=== PATIENT | male | born 1935 | race Caucasian/White ===

== ENCOUNTER 2018-09-29 08:45 | Inpatient (IN) | payer MEDICARE, OTHER, SELFPAY ==
[2018-09-29] VITALS (12 sets, daily range): BP systolic 127–143; BP diastolic 49–71; PULSE 66–85; RESP 16–22; TEMP 35.8–37.1; O2SAT 75–96; BMI 26.5; BMI 26.6; BMI 26.7
--- NOTE | 2018-09-29 08:59 | RAD_ITS ---
STUDY: X-RAY CHEST REASON FOR EXAM: Male, 82 years old. Shortness of breath and cough TECHNIQUE: Single AP portable view of the chest. COMPARISON: 09/17/2016 FINDINGS: EKG leads overlie the chest The lungs are clear and expanded. There is no demonstrated pleural abnormality. Normal size heart. Normal mediastinum and dionne. Normal visualized pulmonary arteries. There is atherosclerotic calcification of the aortic arch with tortuosity. There are diffuse degenerative changes of the visualized thoracic spine. Normal visualized ribs, clavicles, and shoulders. There is no demonstrated abnormality of the visualized soft tissue structures of the upper abdomen. RAD/Chest 1 View (Portable) IMPRESSION: No acute pulmonary process Electronically Signed: Celso Boyce MD at 9:57 EDT , Service support ,
--- NOTE | 2018-09-29 09:00 | EKG12_ITS ---
Test Reason : SOB Blood Pressure : / mmHG Vent. Rate : 069 BPM Atrial Rate : 069 BPM P-R Int : 136 ms QRS Dur : 102 ms QT Int : 396 ms P-R-T Axes : 047 -62 044 degrees QTc Int : 424 ms Normal sinus rhythm Left anterior fascicular block Abnormal ECG Confirmed by NICHO CHOWDHURY, CHANDRA ([id number]), newspaper copy editor MARIA DEL ROSARIO PARADA ([id number]) on 10/07/2018 1:24:04 PM Referred By: AUBRIE Confirmed By:LUIS ALFREDO TORRE MD
--- NOTE | 2018-09-29 09:05 | ED.VIS.GEN ---
History of Present Illness Chief Complaint: Shortness of Breath Informant: Patient Onset: Days Context: Gradual Onset Timing: Waxes and wanes Current Severity: Moderate Maximum Severity: Moderate Narrative: Patient presents with increased shortness of breath for the past couple of days. He does have a history of COPD. He does wear 1 L nasal cannula home oxygen as needed. Patient states he is been using it for the last day and a half. He does check his pulse ox at home and states he normally runs between 85 and 88%. He has not had significant cough. He reports intermittent mild burning in his chest. No fever or chills. Past Medical History - Allergies and Home Meds Allergies/Adverse Reactions: Allergies WORM MEDICATION Allergy (Uncoded 09/29/18 08:46) Hives Primary Care Physician: Kevin Mcdowell III, MD [Primary Care Provider] - Doctors: Dr. Carlson, Dr. Morris Prior records reviewed: Yes Past Medical History: - - Reviewed Smoking Status: Former smoker - Family History Maternal Family History: Reports: No pertinent history Review of Systems General: Denies: Chills, Fever Eyes: Denies: Visual changes - bilaterally ENT: Denies: Bilateral ear pain Cardiovascular: Reports: Chest pain. Denies: Palpitations, Heart racing Respiratory: Reports: Dyspnea. Denies: Cough Gastrointestinal: Denies: Abdominal pain, Nausea, Vomiting Genitourinary: Denies: Dysuria Musculoskeletal: Reports: Swelling - Mild left ankle swelling. Denies: Myalgias Skin: Denies: Rash Neurological: Denies: Headache Endocrine: Denies: Polyuria, Polydipsia Hematologic: Denies: Easy bruising Allergy: Denies: Uticaria Physical Exam Vital Signs/Narrative: Vital Signs Temp Pulse Resp BP Pulse Ox 09/29/18 08:54 96.5 F L 74 20 H 143/68 H 75 Inital Vital Signs reviewed: Yes General: Well nourished, Well developed Head: Normocephalic Eyes: Perrl, EOMI ENT: Moist mucous membranes Neck: Supple Cardiovascular: Regular rate, Regular rhythm Respiratory: No distress, Diminished Abdomen: Soft, Nontender Extremities: Nontender, No edema Skin: Normal color, No rash Neurological: Alert, Oriented x3 Psychological: Normal affect Diagnostic/Tx/Re-eval Impressions Chest X-Ray 09/29/18 08:59 IMPRESSION: No acute pulmonary process Electronically Signed: Celso Boyce MD at 9:57 EDT , Service support , 09/29/18 08:59 Chest 1 View (Portable) [RAD] Stat Laboratory Results 09/29/18 09/29/18 09/29/18 09:10 09:10 09:10 WBC 7.0 RBC 5.22 Hgb 16.3 Hct 51.0 MCV 97.7 H MCH 31.2 MCHC 32.0 RDW Std Deviation 51.0 H RDW Coeff of Delia 14.1 Plt Count 179 MPV 10.4 Immature Gran % (Auto) 0.300 Neut % (Auto) 64.2 Lymph % (Auto) 24.6 [place] % (Auto) 7.8 Eos % (Auto) 2.7 Baso % (Auto) 0.4 Absolute Neuts (auto) 4.5 Absolute Lymphs (auto) 1.71 Nucleated RBC % 0 Sodium 135 L Potassium 4.2 Chloride 98 Carbon Dioxide 33.0 H Anion Gap 4 L BUN 26 H Creatinine 1.34 H Estim Creat Clear Calc 44.64 Est GFR (MDRD) Af Amer 66 Est GFR (MDRD) Non-Af 54 L BUN/Creatinine Ratio 19.4 Glucose 191 H Calcium 9.5 Troponin I < 0.015 B-Natriuretic Peptide 170.2 H - EKG Initial EKG Interpretation: Sinus Rhythm - Sinus at [address] change. - Medical Decision Making Patient presented with oxygen saturation of 69% in triage. He was 75% on his normal 1 L nasal cannula in the exam room. Oxygen was turned up and patient's sats increased into the mid upper 90s. He has now settled at requiring around 3 L nasal cannula to maintain his sats around 90. With any exertion patient does desaturate. He is not having chest pain currently. He was given a DuoNeb treatment states he is coughing slightly more now. Lungs are clear with slightly improved air movement throughout. He will be given a dose of Solu-Medrol. He will be admitted for further respiratory treatment and evaluation. ED Disposition - Plan for ED Patient: Disposition: Acute Care Hospital [facility] Diagnosis: COPD exacerbation Referrals: Kevin Mcdowell III, MD [Primary Care Provider] -
[2018-09-29] MEDS: Ipratropium/Albuterol Sulfate 3 ML AMPUL.NEB INHALATION ×4 (09:07→23:25)
[2018-09-29 09:16] LABS: Absolute Lymphocyte Count 1.71 X10^3/uL (0.83-4.51); Absolute Neutrophil Count 4.5 X10^3/uL (2.0-7.7); Basophil# 0.03 X10^3/uL; Basophil% 0.4 % (0-1); Eosinophil# 0.19 X10^3/uL; Eosinophils% 2.7 % (0-5); Hemoglobin 16.3 g/dL (13.0-16.5); Lymphocyte # 1.71 X10^3/ul (4.0); Lymphocyte % 24.6 % (19-41); Mean Corpuscular Hgb 31.2 pg (27.0-32.0); Mean Corpuscular Volume 97.7 fL (80-94); Mean Platelet Vol. 10.4 fl (6.2-12.0); Monocyte# 0.54 X10^3/uL; Monocyte% 7.8 % (0-10); NRBC Flagged by Analyzer 0 % (0-5); Neutrophil # 4.47 X10^3/uL (2.7-7.7); Neutrophil % 64.2 % (47-70); Platelet Count 179 K/mm3 (150-450); RBC Distribution Width CV 14.1 % (11.6-14.6); Red Blood Count 5.22 M/mm3 (4.6-6.2)
[2018-09-29 09:34] LABS: Anion Gap 4 (5-15); BUN 26 mg/dL (7-18); BUN/Creat Ratio 19.4 RATIO (10-20); Calcium,Total 9.5 mg/dL (8.5-10.1); Chloride 98 mmol/L (98-107); Creatinine, Serum 1.34 mg/dL (0.70-1.30); EST Glomerular Filtration Rate 54 mL/min (>60); Est Glom Filt Rate - Afr Amer 66 mL/min (>60); Estimated Creatinine Clearance 44.64 ml/min; Glucose 191 mg/dL (74-106); Potassium 4.2 mmol/L (3.5-5.1); Sodium Level 135 mmol/L (136-145)
[2018-09-29 09:45] LABS: BNP,B-Type NATRIURETIC PEPTIDE 170.2 pg/mL (0-100)
[2018-09-29] MEDS: MethylPREDNISolone 125 MG/2 ML Vial IV (10:18)
--- NOTE | 2018-09-29 10:42 | PCM.HP.STD ---
Problem List (1) Carotid stenosis, bilateral Status: Chronic (2) Peripheral arterial disease Status: Chronic (3) Coronary artery disease Status: Chronic (4) History of cardiac stents Status: Chronic (5) COPD exacerbation Status: Acute (6) Dyslipidemia Status: Chronic (7) DM type 2 (diabetes mellitus, type 2) Status: Acute (8) Hypertension Status: Acute (9) COPD (chronic obstructive pulmonary disease) Status: Chronic History of Present Illness Date of Admission: 09/29/18 Chief Complaint: Shortness of breath The patient is a 82 year old M with history of COPD with 40 pack years of smoking, quit 20 years ago on 1 L of oxygen at home came to ER with progressive worsening of shortness of breath for 3 to 4 days. Patient pulse ox at home was between 85 to 88%. He has intermittent cough from COPD but nothing new. Denies any sputum. Denies chest pressure, chest pain although he reported mild burning pain in chest to Dr. Espinoza. No fever or chills. 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 Lazaro Mcdowell in the past. Past Medical History Past Medical History (Chronic Problems): Chronic Problems Carotid stenosis, bilateral (Chronic) Peripheral arterial disease (Chronic) Coronary artery disease (Chronic) History of cardiac stents (Chronic) Dyslipidemia (Chronic) COPD (chronic obstructive pulmonary disease) (Chronic) Allergies WORM MEDICATION Allergy (Uncoded 09/29/18 08:46) Hives Home Medications: Ambulatory Orders Medication Instructions Recorded Albuterol Aerosols [Ventolin 2.5 mg INHALATION Q4H PRN PRN 01/18/17 Aerosols] Aspirin [Aspirin, Baby] 81 mg PO DAILY@0800 01/18/17 Atorvastatin Calcium [Lipitor] 20 mg PO QHS 01/18/17 Lisinopril/Hydrochlorothiazide 1 tab PO DAILY 01/18/17 [Zestoretic Tablet] Metoprolol Succinate [Toprol Xl] 50 mg PO DAILY 01/18/17 Nitroglycerin [Nitrostat] 0.4 mg SL PRN PRN 01/18/17 Pioglitazone HCl 15 mg PO DAILY 01/18/17 Tiotropium [place] [Spiriva] 18 mcg INHALATION DAILY 01/18/17 metFORMIN HCl [Glucophage] 500 mg PO DAILY 01/18/17 Smoking Status: Former smoker - *Family History Maternal History Items: No pertinent history Review of Systems Constitutional: Denies: Chills, Fever, Weight Change HEENT: Denies: Head Aches, Sinus Congestion, Sinus Drainage Cardiovascular: Denies: Chest Pain, Palpitations Respiratory: Reports: Shortness of Breath, Shortness of breath upon exertion. Denies: Cough, Shortness of breath at rest, Sputum production Gastrointestinal: Denies: Abdominal Pain, Diarrhea, Hematemesis, Hematochezia, Nausea, Melena, Vomiting Genitourinary: Denies: Dysuria, Frequency, Urgency Musculoskeletal: Denies: Joint Pain, Joint Tenderness Skin: Denies: Rash, Wounds Neurological: Denies: Numbness, Tingling, Focal weakness Psychiatric: Denies: Anxiety, Depression, Homicidal Ideations, Suicidal Ideations Hematologic/ Lymphatic: Denies: Easy Bruising, Easy Bleeding VTE Information - Inpt Only VTE Present on Admission: No VTE Mechan Device Prophylaxis: None VTE Pharm Prophylaxis ordered?: Yes Patient Problems: Active and Suspected Problems COPD exacerbation (Acute) - Physical Exam General: Alert, Oriented x3, Cooperative HEENT: Atraumatic, PERRLA, EOMI, Normocephalic Oral: Dry Mucosa Neck: Supple, No JVD, Negative Carotid Bruits, - - Bilateral CEA scar on both side of neck. Lungs: No wheeze, No rales, Diminished - Air entry severely diminished diffusing all lung valdez., Rhonchi Cardiovascular: Regular rate, Regular Rhythm, Normal S1, Normal S2, No murmurs Abdomen: Bowel Sounds Present, Soft, Non Tender, Non-Distended, - - Midline lower abdominal scar of aortobifemoral bypass surgery Extremities: No edema, Capillary Refill Less than 3 Seconds Skin: No rashes, No breakdown Musculoskeletal: No Tenderness to Palpation of Joints or Extremities, Arthritic Changes Neurological: Cranial nerves II-XII grossly intact, Deep Tendon Reflexes 2+/4 and Symmetrical, Neuro grossly intact, Motor Exam 5/5 strength throughout Psych/Mental Status: Normal Affect, Appropriate Vital Signs Temp Pulse Resp BP Pulse Ox 96.5 F L 78 22 H 143/71 H 95 09/29/18 08:54 09/29/18 10:05 09/29/18 10:05 09/29/18 10:05 09/29/18 10:05 Oxygen Flow Rate (L/min) 3 Oxygen Delivery Method Nasal Cannula Weight: 184 lb 15.485 oz Body Mass Index (BMI) 26.5 Laboratory Tests Past 24 Hrs 09/29/18 09/29/18 09/29/18 09:10 09:10 09:10 WBC 7.0 RBC 5.22 Hgb 16.3 Hct 51.0 MCV 97.7 H MCH 31.2 MCHC 32.0 RDW Std Deviation 51.0 H RDW Coeff of Delia 14.1 Plt Count 179 MPV 10.4 Immature Gran % (Auto) 0.300 Neut % (Auto) 64.2 Lymph % (Auto) 24.6 [place] % (Auto) 7.8 Eos % (Auto) 2.7 Baso % (Auto) 0.4 Absolute Neuts (auto) 4.5 Absolute Lymphs (auto) 1.71 Nucleated RBC % 0 Sodium 135 L Potassium 4.2 Chloride 98 Carbon Dioxide 33.0 H Anion Gap 4 L BUN 26 H Creatinine 1.34 H Estim Creat Clear Calc 44.64 Est GFR (MDRD) Af Amer 66 Est GFR (MDRD) Non-Af 54 L BUN/Creatinine Ratio 19.4 Glucose 191 H Calcium 9.5 Troponin I < 0.015 B-Natriuretic Peptide 170.2 H Assessment/Plan All Active Problems COPD exacerbation (Acute) DM type 2 (diabetes mellitus, type 2) (Acute) Hypertension (Acute) This 82-year-old gentleman with history of COPD and 1 L of home oxygen came to ER with progressive worsening of shortness of breath for past 3 to 4 days along with increased requirement of oxygen. Patient denies significant history of cough or sputum or fever or chills. No chest pain. 1. COPD exacerbation with acute on chronic hypoxic respiratory failure: The patient is being admitted on MedSurg floor. Oxygen therapy. If needed will need BiPAP but currently stable. Generally at home he is on 1 L of oxygen, currently on 3 L of oxygen. Started on IV Solu-Medrol, bronchodilator DuoNeb every 4 hourly, albuterol as needed, Zithromax, Mucinex, incentive spirometry and chest physiotherapy. If patient coughs of his sputum, will need to sputum culture. 2. Cardiovascular disease: Coronary artery disease status post stent, bilateral carotid stenosis status post CEA, peripheral arterial disease status post aortic bifemoral bypass surgery: Patient had more than 40 pack years of his smoking. EKG shows normal sinus rhythm at 69 bpm with QRS complex 102 ms, LAD, LAFB. Troponin is negative. BNP 170. No further need to cycle troponin as patient does not have chest pain. On aspirin, lisinopril/HCTZ, and statin 3. Diverticulitis type II: Accu-Chek before meals and at bedtime and cover with Humalog sliding scale. Glucose 191. Patient is on metformin, Actos continued. 4. Other comorbidities include hypertension dyslipidemia: Blood pressure is controlled on 143/71 as per his age. Blood pressure resumed and titrate as per blood pressure readings. On atorvastatin 20 mg daily. DVT prophylaxis: On Lovenox 40 mg subcu daily Laboratory Results 09/29/18 09:10: WBC 7.0, RBC 5.22, Hgb 16.3, Hct 51.0, MCV 97.7 H, MCH 31.2, MCHC 32.0, RDW Std Deviation 51.0 H, RDW Coeff of Delia 14.1, Plt Count 179, MPV 10.4, Immature Gran % (Auto) 0.300, Neut % (Auto) 64.2, Lymph % (Auto) 24.6, [place] % (Auto) 7.8, Eos % (Auto) 2.7, Baso % (Auto) 0.4, Absolute Neuts (auto) 4.5, Absolute Lymphs (auto) 1.71, Nucleated RBC % 0 09/29/18 09:10: Sodium 135 L, Potassium 4.2, Chloride 98, Carbon Dioxide 33.0 H, Anion Gap 4 L, BUN 26 H, Creatinine 1.34 H, Estim Creat Clear Calc 44.64, Est GFR (MDRD) Af Amer 66, Est GFR (MDRD) Non-Af 54 L, BUN/Creatinine Ratio 19.4, Glucose 191 H, Calcium 9.5, Troponin I < 0.015 09/29/18 09:10: B-Natriuretic Peptide 170.2 H Clinical Impression(s) from Imaging Studies Chest X-Ray 09/29/18 08:59 IMPRESSION: No acute pulmonary process Code Visit Inpatient E&M: 29639 Init Hosp L3
[2018-09-29] MEDS: 0.9% Normal Saline 1,000 ML 75 ML IV (11:58)
[2018-09-29 12:00] LABS: Bedside Glucose 187 mg/dL (70-110)
[2018-09-29] MEDS: Azithromycin 250 MG Tablet 500 MG PO (12:02)
[2018-09-29] MEDS: Enoxaparin 40 MG/0.4 ML Syringe SC (12:02)
[2018-09-29] MEDS: Insulin Lispro 100 UNIT/ML INSULN.PEN SC ×3 (12:03→21:20)
[2018-09-29] MEDS: guaiFENesin 1,200 MG Tablet 1200 MG PO ×2 (12:03→21:13)
[2018-09-29 16:46] LABS: Bedside Glucose 330 mg/dL (70-110)
[2018-09-29] MEDS: Atorvastatin Calcium 20 MG Tablet PO (21:13)
[2018-09-29 21:56] LABS: Bedside Glucose 338 mg/dL (70-110)
[2018-09-29] MEDS: MELATONIN 3 MG TABLET PO (23:51)
[2018-09-30] VITALS (10 sets, daily range): BP systolic 116–137; BP diastolic 47–60; PULSE 79–98; RESP 16–20; TEMP 36.2–37.1; O2SAT 94–96
[2018-09-30] MEDS: Ipratropium/Albuterol Sulfate 3 ML AMPUL.NEB INHALATION ×5 (03:25→22:54)
[2018-09-30 06:10] LABS: Anion Gap 10 (5-15); BUN 37 mg/dL (7-18); BUN/Creat Ratio 24.8 RATIO (10-20); Calcium,Total 8.6 mg/dL (8.5-10.1); Chloride 97 mmol/L (98-107); Creatinine, Serum 1.49 mg/dL (0.70-1.30); EST Glomerular Filtration Rate 48 mL/min (>60); Est Glom Filt Rate - Afr Amer 58 mL/min (>60); Estimated Creatinine Clearance 38.88 ml/min; Glucose 342 mg/dL (74-106); Potassium 4.4 mmol/L (3.5-5.1); Sodium Level 135 mmol/L (136-145)
[2018-09-30] MEDS: Insulin Lispro 100 UNIT/ML INSULN.PEN SC ×4 (06:24→21:38)
[2018-09-30 06:40] LABS: Bedside Glucose 378 mg/dL (70-110)
[2018-09-30 08:11] LABS: Hemoglobin A1c 7.8 % (4.2-6.3)
[2018-09-30] MEDS: Aspirin 81 MG TAB.CHEW PO (08:44)
[2018-09-30] MEDS: metFORMIN HCl 500 MG Tablet PO ×2 (08:44→17:15)
[2018-09-30] MEDS: Pioglitazone Hydrochloride 15 MG Tablet PO (08:53)
[2018-09-30] MEDS: Metoprolol(XL)Succ 50 MG Tablet PO (08:54)
[2018-09-30] MEDS: hydroCHLOROthiazide 25 MG Tablet PO (08:54)
[2018-09-30] MEDS: Enoxaparin 40 MG/0.4 ML Syringe SC (08:54)
[2018-09-30] MEDS: guaiFENesin 1,200 MG Tablet 1200 MG PO ×2 (08:55→21:38)
[2018-09-30] MEDS: Lisinopril 20 MG Tablet PO (08:55)
[2018-09-30] MEDS: Azithromycin 250 MG Tablet 500 MG PO (08:55)
--- NOTE | 2018-09-30 09:37 | PN_ITS ---
Patient Problems: Active and Suspected Problems COPD exacerbation (Acute) Subjective: Breathing better than when he presented initially but not back to his baseline yet. Is on 4 L of oxygen and states that he does have oxygen at home but only wears about 1 L at night which he states that he does not do all the time. Vitals/I&O's: Vital Signs Temp Pulse Resp BP Pulse Ox 36.4 C L 98 18 121/51 H 94 09/30/18 08:49 09/30/18 08:54 09/30/18 08:49 09/30/18 08:54 09/30/18 08:49 Oxygen Flow Rate (L/min) 3.5 Oxygen Delivery Method Nasal Cannula Weight: 82 kg Body Mass Index (BMI) 26.6 Intake and Output for Last 24 Hours 09/28/18 09/29/18 09/30/18 23:59 23:59 23:59 Intake Total 1400 / 1400 200 / 200 Output Total 350 / 350 Balance 1400 / 1400 -150 / -150 General: Alert, No apparent distress, - - No respiratory distress. No conversational dyspnea. HEENT: Atraumatic, Normocephalic Oral: Moist Mucosa, No Gingival or Mucosal Lesions/ Ulcerations Neck: No Nodes, Thyroid Normal Size and Texture Lungs: Clear to auscultation, No rhonchi, No wheeze, No rales, Diminished Cardiovascular: Regular rate, Regular Rhythm, Normal S1, Normal S2, No murmurs Abdomen: Bowel Sounds Present, Soft, Non Tender, Non-Distended, No Hepato- splenomegaly Extremities: No edema Skin: No rashes, No breakdown Psych/Mental Status: Normal Affect, Appropriate Laboratory Results 09/29/18 09:10: B-Natriuretic Peptide 170.2 H 09/29/18 11:54: POC Glucose 187 H 09/29/18 16:40: POC Glucose 330 H 09/29/18 21:19: POC Glucose 338 H 09/30/18 05:12: Sodium 135 L, Potassium 4.4, Chloride 97 L, Carbon Dioxide 28.0, Anion Gap 10, BUN 37 H, Creatinine 1.49 H, Estim Creat Clear Calc 38.88, Est GFR (MDRD) Af Amer 58 L, Est GFR (MDRD) Non-Af 48 L, BUN/Creatinine Ratio 24.8 H, Glucose 342 H, Calcium 8.6 09/30/18 05:12: Hemoglobin A1c 7.8 H 09/30/18 06:22: POC Glucose 378 H Current Medications Acetaminophen (Tylenol) 650 mg PO Q6H PRN PRN PRN Reason: Mild Pain (1-3)/Temp > 100.7 F Albuterol Sulfate (Ventolin Aerosols) 2.5 mg INHALATION Q2H PRN PRN PRN Reason: SHORTNESS OF BREATH Albuterol/Ipratropium (Duoneb) 3 ml INHALATION Q4H.RT [facility] Last Admin: 09/30/18 07:03 Dose: 3 ml Documented by: Aspirin (Aspirin, Baby) 81 mg PO DAILY@0800 [facility] Last Admin: 09/30/18 08:44 Dose: 81 mg Documented by: Atorvastatin Calcium (Lipitor) 20 mg PO QHS [facility] Last Admin: 09/29/18 21:13 Dose: 20 mg Documented by: Azithromycin (Zithromax) 500 mg PO Q24 [facility] Stop: 10/01/18 10:01 Last Admin: 09/30/18 08:55 Dose: 500 mg Documented by: Dextrose (D50w Syringe) 0 gm IV X1 PRN; Protocol PRN Reason: Hypoglycemia Enoxaparin Sodium (Lovenox) 40 mg SC DAILY [facility] Last Admin: 09/30/18 08:54 Dose: 40 mg Documented by: Glucagon () 1 mg IM .X1 PRN PRN Reason: Hypoglycemia Guaifenesin (Mucinex) 1,200 mg PO BID [facility] Last Admin: 09/30/18 08:55 Dose: 1,200 mg Documented by: Hydrochlorothiazide (Hctz) 25 mg PO DAILY [facility] Last Admin: 09/30/18 08:54 Dose: 25 mg Documented by: Insulin Human Lispro (Humalog Kwikpen (Bkc)) 0 unit SC ACHS [facility]; Protocol Last Admin: 09/30/18 06:24 Dose: 10 u Documented by: Lisinopril (Zestril) 20 mg PO DAILY [facility] Last Admin: 09/30/18 08:55 Dose: 20 mg Documented by: Melatonin (Melatonin) 3 mg PO QHS PRN PRN PRN Reason: INSOMNIA Last Admin: 09/29/18 23:51 Dose: 3 mg Documented by: Metformin HCl (Glucophage) 500 mg PO DAILYCM [facility] Last Admin: 09/30/18 08:44 Dose: 500 mg Documented by: Methylprednisolone (Solu-Medrol) 40 mg IV Q8 [facility] Stop: 09/30/18 14:01 Last Admin: 09/30/18 06:23 Dose: 40 mg Documented by: Metoprolol Succinate (Toprol Xl (Beta Estevan)) 50 mg PO DAILY [facility] Last Admin: 09/30/18 08:54 Dose: 50 mg Documented by: Morphine Sulfate () 2 mg IV Q3H PRN PRN PRN Reason: Severe pain (7-10/10) Nitroglycerin (Nitrostat) 0.4 mg SUBLINGUAL Q5M PRN Oxycodone HCl (Oxyir) 5 mg PO Q4H PRN PRN PRN Reason: Moderate Pain (4-6/10) Pioglitazone HCl (Actos) 15 mg PO DAILY [facility] Last Admin: 09/30/18 08:53 Dose: 15 mg Documented by: Prednisone () 40 mg PO DAILY@0800 [facility] Prochlorperazine Edisylate (Compazine Iv) 5 mg IV Q4H PRN PRN PRN Reason: Breakthrough nausea/vomiting Senna/Docusate Sodium (Senokot-S, Jesica-Colace) 2 tablet PO BID PRN PRN PRN Reason: Constipation Sodium Chloride () 10 - 40 ml IV UD PRN PRN Reason: SALINE FLUSH Medical Necessity - Tobacco Use Smoking Status: Former smoker Tobacco Use: Cigarettes Assessment/Plan All Active Problems COPD exacerbation (Acute) 1. Acute COPD exacerbation: * Improving, though not near baseline yet. * Will decrease the methylprednisolone from 40 to 20 mg every 8 hours and assess his response * Continue with bronchodilators * Follow-up with pulmonology as outpatient 2. Acute hypoxic respiratory insufficiency * Secondary to above * Wean oxygen as tolerated * Check an ambulatory pulse ox prior to discharge 3. diabetes mellitus type 2 * Uncontrolled * Exacerbated by steroids * Check an A1c * Continue the glitazone * Continue metformin but increase frequency from daily to twice daily * I suspect the blood sugars are poorly controlled at baseline 4. VTE prophylaxis with Lovenox Code Visit Inpatient E&M: 30000 [facility] Hosp L2
--- NOTE | 2018-09-30 10:55 | CASEMGMT ---
ANDRE CHANDLER Face to Face with patient for initial transition planning/care coordination assessment. RN CM introduced self and role at [facility]. Patient sitting in chair, alert and oriented. Patient willing to participate in assessment and is able to answer all questions appropriately. Care providers, pharmacy, and demographics verified. Patient wishes to discharge home, denies need for home health at this time. Patient states he has no further needs or concerns at this time. CM to follow for discharge planning needs that may arise. 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 Patient states he is independent. Transportation: self/son DME/HHC: Patient states he has shower chair, BSC, cane, grab bars, walker, wheelchair, oxygen through [place], Pulse ox. Patient denies previous HHC. Disposition Plan: Patient to discharge home with family support and follow-up plans in place. Will monitor for need for HHC. Kinjal STATON, RN, CM
[2018-09-30 12:11] LABS: Bedside Glucose 378 mg/dL (70-110)
[2018-09-30] MEDS: 0.9% NaCl Peripheral Flush Adult/Peds IV (13:45)
--- NOTE | 2018-09-30 15:54 | CHAPLAIN ---
Type of Pastoral Visit _x__ Initial Visit ___ Follow-up Visit ___ On-call Visit ___ General Patient Visit ___ Spiritual Assessment ___ Family Conference ___ Bereavement ___ Rapid Response ___ Code Blue ___ Other (describe below) Pastoral Care Referral From _x__ Patient ___ Family ___ Nurse ___ Physician ___ Chief Of Staff ___ Groundskeeping Maintenance Worker ___ Other (describe below) Sacrament/Intervention _x__ Active listening ___ Anointing ___ Jewish ___ Bereavement ___ Communion ___ Mikayla exploration ___ ___ Life review ___ Prayer ___ Reconciliation ___ Sacrament of Sick ___ Supportive presence ___ Wedding ___ Other (describe below) Pastoral Comments
[2018-09-30 17:50] LABS: Bedside Glucose 315 mg/dL (70-110)
[2018-09-30] MEDS: Atorvastatin Calcium 20 MG Tablet PO (21:38)
[2018-09-30 21:45] LABS: Bedside Glucose 334 mg/dL (70-110)
[2018-10-01] VITALS (10 sets, daily range): BP systolic 127–128; BP diastolic 53–61; PULSE 64–94; RESP 16–20; TEMP 36.4–36.8; O2SAT 77–94
[2018-10-01] MEDS: Ipratropium/Albuterol Sulfate 3 ML AMPUL.NEB INHALATION ×3 (02:50→10:34)
[2018-10-01] MEDS: Insulin Lispro 100 UNIT/ML INSULN.PEN SC (06:38)
[2018-10-01 06:45] LABS: Bedside Glucose 252 mg/dL (70-110)
[2018-10-01] MEDS: Aspirin 81 MG TAB.CHEW PO (08:17)
[2018-10-01] MEDS: 0.9% NaCl Peripheral Flush Adult/Peds IV (08:17)
[2018-10-01] MEDS: metFORMIN HCl 500 MG Tablet PO (08:18)
[2018-10-01] MEDS: predniSONE 20 MG Tablet 40 MG PO (08:18)
[2018-10-01] MEDS: Pioglitazone Hydrochloride 15 MG Tablet PO (08:19)
--- NOTE | 2018-10-01 09:16 | DCINST_ITS ---
- Discharge Diagnoses Current Active Problems: Current Active and Chronic Problems COPD exacerbation (Acute) Carotid stenosis, bilateral (Chronic) Peripheral arterial disease (Chronic) Coronary artery disease (Chronic) History of cardiac stents (Chronic) You will use the following diet at home:: Calorie/Carbohydrate Controlled (specify 1200, 1400, etc) - 1800 Your food should be the consistency of: Regular Your liquids should be the consistency of: Regular/Thin Discharge Activity: Return to Normal Activity Call your doctor if you observe: Fever of 101 or Higher, Shortness of breath Instructions: What Is Type 2 Diabetes?, Oral Therapy for Type 2 Diabetes, Diabetes: Keeping Feet Healthy, What Is COPD?, Managing Your Glucose Level for Diabetes and Kidney Disease, Care for COPD, Treatments for COPD, Understanding Type 2 Diabetes Allergies/Adverse Reactions: Allergies WORM MEDICATION Allergy (Uncoded 09/29/18 08:46) Hives Medications to take at Discharge Aspirin [Aspirin, Baby] 81 mg PO DAILY@0800 01/18/17 Atorvastatin Calcium [Lipitor] 20 mg PO QHS 01/18/17 Lisinopril/Hydrochlorothiazide [Zestoretic 20/25 Tablet] 1 tab PO DAILY 01/18/17 Metoprolol Succinate [Toprol Xl] 50 mg PO DAILY 01/18/17 Nitroglycerin [Nitrostat] 0.4 mg SL PRN PRN 01/18/17 Pioglitazone HCl 15 mg PO DAILY 01/18/17 Tiotropium [place] [Spiriva] 18 mcg INHALATION DAILY 01/18/17 Albuterol Aerosols [Ventolin Aerosols] 2.5 mg INHALATION Q4H PRN PRN #30 vial.neb. 10/01/18 Guaifenesin [Mucinex] 1,200 mg PO BID #10 tab 10/01/18 Nebulizer [Aeroneb Go Nebulizer] 1 ea MC Q4H PRN #1 ea 10/01/18 metFORMIN HCl [Glucophage] 500 mg PO BIDCM #60 tab 10/01/18 predniSONE tablet 2 tab PO DAILY@0800 #8 tab 10/01/18 The following prescriptions were given: Nebulizer [Aeroneb Go Nebulizer] 1 ea MC Q4H PRN #1 ea PRN Reason: Shortness Of Breath Transmission Status: Pending to [facility] metFORMIN HCl [Glucophage] 500 mg PO BIDCM #60 tab Transmission Status: Pending to [facility] Guaifenesin [Mucinex] 1,200 mg PO BID #10 tab Transmission Status: Pending to [facility] predniSONE tablet 2 tab PO DAILY@0800 #8 tab Transmission Status: Pending to [facility] Albuterol Aerosols [Ventolin Aerosols] 2.5 mg INHALATION Q4H PRN PRN #30 vial.neb. PRN Reason: Sob &/Or Wheezing Transmission Status: Pending to [facility] Primary Care Physician: Kevin Mcdowell III, MD [Primary Care Provider] - Within 2 Weeks Test Results: Test results from this visit will be discussed in further detail at your follow- up appointment, if applicable. Please Follow Up With: Garret Ye DO When: 1-2 months Proposed Discharge Date: 10/01/18
--- NOTE | 2018-10-01 09:18 | PCM.DC.SUM ---
Discharge Date and Diagnosis - Problem List Patient Problems: Active and Suspected Problems COPD exacerbation (Acute) Date of Admission: 09/29/18 Date of Discharge: 10/01/18 - Primary Discharge Diagnosis Active and Suspected Problems COPD exacerbation (Acute) 1. Acute COPD exacerbation: Improving, though not near baseline yet. Continue prednisone 40mg Burst for total of 5 days. Continue with bronchodilators Follow-up with pulmonology as outpatient. Previously saw Dr. Carlson (not for years, though). Does not wish to follow up with him. Can follow up with Rekha Spicer. 2. Acute hypoxic respiratory insufficiency Secondary to above Wean oxygen as tolerated Check an ambulatory pulse ox prior to discharge. Has oxygen QHS at home. Will see if needs more continuously. 3. diabetes mellitus type 2 Uncontrolled Exacerbated by steroids A1c 7.8 Continue the glitazone Continue metformin but increase frequency from daily to twice daily - Secondary Discharge Diagnosis Chronic Problems Carotid stenosis, bilateral (Chronic) Peripheral arterial disease (Chronic) Coronary artery disease (Chronic) History of cardiac stents (Chronic) Dyslipidemia (Chronic) DM type 2 (diabetes mellitus, type 2) (Chronic) Hypertension (Chronic) COPD (chronic obstructive pulmonary disease) (Chronic) Hospital Course and Treatment Imaging Results: Clinical Impression(s) from Imaging Studies Chest X-Ray 09/29/18 08:59 IMPRESSION: No acute pulmonary process Electronically Signed: Celso Boyce MD at 9:57 EDT , Service support , Operations: None Procedures: None Summary of Care Provided: The patient is a 82 year old M resents with shortness of breath for the preceding 3 to 4 days prior to arrival. Patient was noted to have a pulse ox of 85 to 88%. Patient was not in respiratory failure. Symptoms were attributable to an exacerbation of his COPD and was started on steroids as well as bronchodilators. Patient has a slowly improved during the course of his hospitalization. Today the patient is overall feeling better though not at his baseline. Feel the patient can be discharged home in stable condition. Patient on his home medications as aerosols as a home medication but he denies having an actual nebulizer and states that he does has an albuterol DI. Patient will have a nebulizer to go home with aerosols. Additionally patient will be on a 40 mg burst over 5 days of prednisone. Patient previously saw Dr. Carlson with pulmonology but has not seen him in years. States that he does not wish to follow-up with him. I did advise patient follow-up with pulmonology and recommend the [facility] here as a local option. [] Patient Problems: Active and Suspected Problems COPD exacerbation (Acute) - Physical Exam General: Alert, No apparent distress HEENT: Atraumatic, Normocephalic Oral: Moist Mucosa, No Gingival or Mucosal Lesions/ Ulcerations Neck: No Nodes, Thyroid Normal Size and Texture Lungs: Normal air movement, No rhonchi, No wheeze, Diminished Cardiovascular: Regular rate, Regular Rhythm, Normal S1, Normal S2, No murmurs Abdomen: Bowel Sounds Present, Soft, Non Tender, Non-Distended, No Hepato-splenomegaly Extremities: No edema, No Calf Tenderness Skin: No rashes, No breakdown Vital Signs Temp Pulse Resp BP Pulse Ox 36.6 C 64 18 128/60 H 94 10/01/18 08:10 10/01/18 08:20 10/01/18 08:10 10/01/18 08:10 10/01/18 08:10 Oxygen Flow Rate (L/min) 3.5 Oxygen Delivery Method Nasal Cannula Weight: 82 kg Body Mass Index (BMI) 26.6 Intake and Output for Last 24 Hours 09/29/18 09/30/18 10/01/18 23:59 23:59 23:59 Intake Total 1400 / 1400 1000 / 1000 150 / 150 Output Total 725 / 725 Balance 1400 / 1400 275 / 275 150 / 150 Microbiology Past 72 Hours 09/29/18 11:34 Respiratory Panel (PCR) - Final Interface Orders POC Glucose 10/01/18 09/30/18 09/30/18 06:37 21:37 17:10 POC Glucose 252 H 334 H 315 H 09/30/18 12:00 POC Glucose 378 H Discharge Diet: 1800 Calorie Control Diet Discharge Activity: Return to Normal Activity Call your doctor if you observe: Fever of 101 or Higher, Shortness of breath Home Medications: Medications to take at Discharge Aspirin [Aspirin, Baby] 81 mg PO DAILY@0800 01/18/17 Atorvastatin Calcium [Lipitor] 20 mg PO QHS 01/18/17 Lisinopril/Hydrochlorothiazide [Zestoretic 20/25 Tablet] 1 tab PO DAILY 01/18/17 Metoprolol Succinate [Toprol Xl] 50 mg PO DAILY 01/18/17 Nitroglycerin [Nitrostat] 0.4 mg SL PRN PRN 01/18/17 Pioglitazone HCl 15 mg PO DAILY 01/18/17 Tiotropium [place] [Spiriva] 18 mcg INHALATION DAILY 01/18/17 Albuterol Aerosols [Ventolin Aerosols] 2.5 mg INHALATION Q4H PRN PRN #30 vial.neb. 10/01/18 Guaifenesin [Mucinex] 1,200 mg PO BID #10 tab 10/01/18 Nebulizer [Aeroneb Go Nebulizer] 1 ea MC Q4H PRN #1 ea 10/01/18 metFORMIN HCl [Glucophage] 500 mg PO BIDCM #60 tab 10/01/18 predniSONE tablet 2 tab PO DAILY@0800 #8 tab 10/01/18 Following Prescrptions Were Given to Patient: Nebulizer [Aeroneb Go Nebulizer] 1 ea MC Q4H PRN #1 ea PRN Reason: Shortness Of Breath Transmission Status: Pending to [facility] metFORMIN HCl [Glucophage] 500 mg PO BIDCM #60 tab Transmission Status: Pending to [facility] Guaifenesin [Mucinex] 1,200 mg PO BID #10 tab Transmission Status: Pending to [facility] predniSONE tablet 2 tab PO DAILY@0800 #8 tab Transmission Status: Pending to [facility] Albuterol Aerosols [Ventolin Aerosols] 2.5 mg INHALATION Q4H PRN PRN #30 vial.neb. PRN Reason: Sob &/Or Wheezing Transmission Status: Pending to [facility] Primary Care Physician: Kevin Mcdowell III, MD [Primary Care Provider] - Within 2 Weeks Please Follow Up With: Garret Ye DO When: 1-2 months Patient Instructions: What Is Type 2 Diabetes?, Oral Therapy for Type 2 Diabetes, Diabetes: Keeping Feet Healthy, What Is COPD?, Managing Your Glucose Level for Diabetes and Kidney Disease, Care for COPD, Treatments for COPD, Understanding Type 2 Diabetes Disposition: Home Minutes spent on discharge:: 36 Patient Condition:: Fair Medical Necessity - Tobacco Use Smoking Status: Former smoker Tobacco Use: Cigarettes Meaningful Use Info Meaningful Use Diagnoses (Choose all that apply): None applicable Code Visit Inpatient E&M: 36798 Disch Hosp
[2018-10-01] MEDS: Lisinopril 20 MG Tablet PO (09:42)
[2018-10-01] MEDS: guaiFENesin 1,200 MG Tablet 1200 MG PO (09:42)
[2018-10-01] MEDS: Metoprolol(XL)Succ 50 MG Tablet PO (09:42)
[2018-10-01] MEDS: Azithromycin 250 MG Tablet 500 MG PO (09:42)
[2018-10-01] MEDS: hydroCHLOROthiazide 25 MG Tablet PO (09:42)
--- NOTE | 2018-10-01 10:03 | NURSING ---
INCREASED OXYGEN TO 4L/WHILE AMBULATING BUT DIDN'T FULLY RECOVER UNTIL BACK TO ROOM & RESTING AGAIN.
--- NOTE | 2018-10-02 14:41 | CASEMGMT ---
Case Management DC F/u Call: DC Date: 10/01/18 DC Diagnosis: COPD exacerbation (Acute) DC Disposition: Home LACE/STRATA: 11/22 Called patient Home number listed on demographics, answered and this CM introduced self. Patient states that he is feeling better but not 100% yet, denies further complaints, issues or concerns. States has picked up his medication and has an appointment for f/u with foot specialist already. Denies any questions/concerns or issues with ACI, meds, or f/u appointments. Cm thanked patient for his time. Zain Castaneda RNCM
== END 2018-10-01 12:37 | disposition home or self-care (01) | DRG 192 ==
LOC: ED 10:09 → MS3 10:49
PROVIDERS: Admitting Provider Internal Medicine; Emergency Provider Emergency Medicine; Family Provider Family Medicine; PCP Family Medicine
DX: J44.1 Chronic obstructive pulmonary disease with (acute) exacerbation (principal); I25.10 Atherosclerotic heart disease of native coronary artery without angina pectoris; E78.5 Hyperlipidemia, unspecified; I10 Essential (primary) hypertension; E11.65 Type 2 diabetes mellitus with hyperglycemia; I73.9 Peripheral vascular disease, unspecified; R06.89 Other abnormalities of breathing; R09.02 Hypoxemia; Z87.891 Personal history of nicotine dependence; Z79.84 Long term (current) use of oral hypoglycemic drugs; Z95.5 Presence of coronary angioplasty implant and graft
CPT/HCPCS: 36415; 71045; 80048; 82962; 83036; 83880; 84484; 85025; 87633; 93005; 94640; 94667; 94668; 97161; 97166; 97530; 99285; J7030; A4216

== ENCOUNTER → 2019-01-01 12:10 | Outpatient (CLI) | payer MEDICARE, OTHER, SELFPAY ==
[2018-12-16 10:45] VITALS: BMI 26.4
[2019-01-01 13:09] VITALS: PULSE 54; PULSE 57; PULSE 68; PULSE 70; PULSE 71; PULSE 75; PULSE 93; O2SAT 81; O2SAT 87; O2SAT 90; O2SAT 92; O2SAT 94; O2SAT 96
--- NOTE | 2019-01-01 13:12 | CPS ---
Patient arrived for testing on RA. Patient wears O2 at home and states that he wears 1L at home, but did not wear it in. RA SpO2 was 78%. 2L applied and patient's SpO2 slowing going up, O2 increased to 3L in order to get patient's SpO2 above 90%. Walk test began on 3L. At the 2 min jayna patient dropped to 81%. 4L applied. At the 4 min jayna patient SpO2 dropped to 87%. 6L applied to finish the test. Colton
--- NOTE | 2019-01-01 15:11 | WT_ITS ---
PSN 6 Minute Walk Test - 6 Minute Walk Test 6 Minute Walk Test: 6 Minute Walk Test PSN:6-Minute Walk Test Start: 01/01/19 13:09 Freq: Status: Active Protocol: [id number].6MINW Document 01/01/19 13:09 SHOBHA (Rec: 01/01/19 13:21 [facility] [id number]) 6 Minute Walk Test Date Performed 01/01/19 Time Performed 12:30 Height 5 ft 10 in Weight: 81.647 kg Weight in Pounds 180.[address]: Garret Ye Assistive device used: None Pre-test Oxygen Flow Rate (L/min) (L/min) 3 Oxygen Delivery Method Nasal Cannula Pulse Ox (%) 94 Pulse Rate (60-100 beats/min) 54 L Dyspnea Cheko Scale (0-10) 0 Exertion Cheko Scale (6-20) 6 1st minute Oxygen Flow Rate (L/min) (L/min) 3 Oxygen Delivery Method Nasal Cannula Pulse Ox (%) 90 Pulse Rate (60-100 beats/min) 75 2nd minute Oxygen Flow Rate (L/min) (L/min) 3 Oxygen Delivery Method Nasal Cannula Pulse Ox (%) 81 Pulse Rate (60-100 beats/min) 93 3rd minute Oxygen Flow Rate (L/min) (L/min) 4 Oxygen Delivery Method Nasal Cannula Pulse Ox (%) 94 Pulse Rate (60-100 beats/min) 71 4th minute Oxygen Flow Rate (L/min) (L/min) 4 Oxygen Delivery Method Nasal Cannula Pulse Ox (%) 87 Pulse Rate (60-100 beats/min) 70 5th minute Oxygen Flow Rate (L/min) (L/min) 6 Oxygen Delivery Method Nasal Cannula Pulse Ox (%) 92 Pulse Rate (60-100 beats/min) 68 6th minute Oxygen Flow Rate (L/min) (L/min) 6 Oxygen Delivery Method Nasal Cannula Pulse Ox (%) 90 Pulse Rate (60-100 beats/min) 70 Dyspnea Cheko Scale (0-10) 0 Exertion Cheko Scale (6-20) 13 Post-test Oxygen Flow Rate (L/min) (L/min) 6 Oxygen Delivery Method Nasal Cannula Pulse Ox (%) 96 Pulse Rate (60-100 beats/min) 57 L Full Laps Walked 16 Partial Lap, Number of Tiles Walked 0 Total Distance Walked (ft) 944 01/01/19 13:12 Cardiopulmonary Services by Lizbeth Rojas Patient arrived for testing on RA. Patient wears O2 at home and states that he wears 1L at home, but did not wear it in. RA SpO2 was 78%. 2L applied and patient's SpO2 slowing going up, O2 increased to 3L in order to get patient's SpO2 above 90%. Walk test began on 3L. At the 2 min jayna patient dropped to 81%. 4L applied. At the 4 min jayna patient SpO2 dropped to 87%. 6L applied to finish the test. Colton Initialized on 01/01/19 13:12 - END OF NOTE - Interpretation Interpretation: Patient noted to be 78% on room air, but required 3 L nasal cannula oxygen to achieve saturation greater than 90%. Patient desaturated at the 2-minute jayna in the 4-minute jayna and required 6 L nasal cannula to maintain appropriate saturations throughout testing. No significant tachycardia was noted. In total, the patient traveled 944 feet over the course of 6 minutes with no assistive devices and the assistance of one break. These findings are consistent with a respiratory limitation to exercise tolerance. - Recommendations Recommendations: The patient requires 3 L nasal cannula oxygen at rest and 6 L nasal cannula with exertion.
== END ==
PROVIDERS: Family Provider Family Medicine; PCP Family Medicine; Referring Provider Internal Medicine Critical Care Medicine; Visit Provider Internal Medicine Critical Care Medicine
DX: J44.9 Chronic obstructive pulmonary disease, unspecified (principal); F17.211 Nicotine dependence, cigarettes, in remission
CPT/HCPCS: 94618

== ENCOUNTER → 2019-01-09 10:26 | Outpatient (CLI) | payer MEDICARE, OTHER, SELFPAY ==
[2018-12-16 10:45] VITALS: BMI 26.4
--- NOTE | 2019-01-13 07:35 | PFT ---
INTRODUCTION: The patient is an 83-year-old male that presents for pulmonary function studies secondary to a diagnosis of COPD. Respiratory therapy reports good patient effort. Bronchodilators were used during testing. INTERPRETATION: Forced expiration spirometry demonstrates the presence of a severe large airways obstructive ventilatory defect. There was a significant response to aerosolized bronchodilators noted, based upon change in FVC. Spirograms are of good quality and do not plateau indicating slow emptying of the lungs. Body plethysmography was performed and reveals an elevated RV to 174% of predicted, indicative of underlying air trapping. Diffusing capacity by single breath CO is reduced at 42% of predicted. IMPRESSION: Partially reversible severe large airways obstructive ventilatory defect with associated air trapping and symmetric reduction in diffusing capacity.
== END ==
PROVIDERS: Family Provider Family Medicine; PCP Family Medicine; Referring Provider Internal Medicine Critical Care Medicine; Visit Provider Internal Medicine Critical Care Medicine
DX: J44.9 Chronic obstructive pulmonary disease, unspecified (principal); F17.211 Nicotine dependence, cigarettes, in remission
CPT/HCPCS: 94060; 94726; 94729

== ENCOUNTER 2019-02-16 09:51 | Inpatient (IN) | payer MEDICARE, OTHER, SELFPAY ==
[2019-01-13 08:10] VITALS: BMI 25.9
[2019-02-16] VITALS (11 sets, daily range): BP systolic 107–147; BP diastolic 44–60; PULSE 66–88; RESP 17–21; TEMP 36.8–37.2; O2SAT 85–97; BMI 26.6; BMI 25.2; BMI 25.3
--- NOTE | 2019-02-16 10:28 | EKG12_ITS ---
Test Reason : DYSRHYTHMIA Blood Pressure : / mmHG Vent. Rate : 064 BPM Atrial Rate : 064 BPM P-R Int : 114 ms QRS Dur : 106 ms QT Int : 408 ms P-R-T Axes : 002 -65 066 degrees QTc Int : 420 ms Sinus rhythm with Premature atrial complexes in a pattern of bigeminy Left anterior fascicular block Abnormal ECG Confirmed by DEBBIE CHOWDHURY, KAL ([id number]), manager editorial GLORIA JACKSON ([id number]) on 02/18/2019 9:31:10 AM Referred By: Michele Farris Confirmed By:KAL LEWIS MD
--- NOTE | 2019-02-16 10:52 | RAD_ITS ---
STUDY: X-RAY CHEST REASON FOR EXAM: Male, 83 years old. COUGH, SOB TECHNIQUE: Single AP portable view of the chest. COMPARISON: September 29, 2018 chest x-ray FINDINGS: Hyperinflated appearance of the upper lung zones similar to prior study with fibrotic change in the lung bases. There is no demonstrated pleural abnormality. Normal size heart. Normal mediastinum and dionne. Normal visualized pulmonary arteries. There is atherosclerotic calcification of the aortic arch with tortuosity. Normal visualized thoracic spine. Normal visualized ribs, clavicles, and shoulders. There is no demonstrated abnormality of the visualized soft tissue structures of the upper abdomen. RAD/Chest 1 View (Portable) IMPRESSION: Stable chest findings suspicious for underlying emphysematous change, obstructive pulmonary disease. Electronically Signed: Katarzyna Dorsey MD at 11:32 EST Tel , Service support ,
[2019-02-16 11:14] LABS: Absolute Lymphocyte Count 1.22 X10^3/uL (0.83-4.51); Absolute Neutrophil Count 5.2 X10^3/uL (2.0-7.7); Basophil# 0.04 X10^3/uL; Basophil% 0.5 % (0-1); Eosinophil# 0.05 X10^3/uL; Eosinophils% 0.7 % (0-5); Hematocrit 43.4 % (40-54); Hemoglobin 13.8 g/dL (13.0-16.5); Lymphocyte # 1.22 X10^3/ul (4.0); Lymphocyte % 16.7 % (19-41); Mean Corp Hgb Conc 31.8 g/dL (32-36); Mean Corpuscular Hgb 30.5 pg (27.0-32.0); Mean Corpuscular Volume 95.8 fL (80-94); Mean Platelet Vol. 10.9 fl (6.2-12.0); Monocyte# 0.74 X10^3/uL; Monocyte% 10.2 % (0-10); NRBC Flagged by Analyzer 0 % (0-5); Neutrophil # 5.21 X10^3/uL (2.7-7.7); Neutrophil % 71.5 % (47-70); Platelet Count 143 K/mm3 (150-450); RBC Distribution Width CV 13.7 % (11.6-14.6); RBC Distribution Width SD 48.5 fl (35.1-43.9); Red Blood Count 4.53 M/mm3 (4.6-6.2); White Blood Count 7.3 K/mm3 (4.4-11.0)
[2019-02-16] MEDS: Ipratropium/Albuterol Sulfate 3 ML AMPUL.NEB INHALATION ×3 (11:15→23:08)
[2019-02-16] MEDS: Albuterol 2.5 MG/3 ML VIAL.NEB. INHALATION ×2 (11:15→11:35)
[2019-02-16 11:29] LABS: Anion Gap 6 (5-15); BUN 34 mg/dL (7-18); BUN/Creat Ratio 21.9 RATIO (10-20); Calcium,Total 8.7 mg/dL (8.5-10.1); Chloride 97 mmol/L (98-107); Creatinine, Serum 1.55 mg/dL (0.70-1.30); EST Glomerular Filtration Rate 46 mL/min (>60); Est Glom Filt Rate - Afr Amer 56 mL/min (>60); Estimated Creatinine Clearance 36.74 ml/min; Glucose 165 mg/dL (74-106); Potassium 4.2 mmol/L (3.5-5.1); Sodium Level 136 mmol/L (136-145)
[2019-02-16] MEDS: MethylPREDNISolone 125 MG/2 ML Vial IV (11:43)
--- NOTE | 2019-02-16 12:06 | ED.VIS.GEN ---
History of Present Illness Chief Complaint: Shortness of Breath Informant: Patient Narrative: 83-year-old male presents with concern for shortness of breath and cough. Present for the past 1 week. Worsening over the past 2 days. Productive of yellow-green sputum. Worse on exertion. Denies any chest pain, nausea, vomiting, or diaphoresis. Patient does have a past medical history of COPD. Taking his breathing treatments as prescribed. Past Medical History - Allergies and Home Meds Allergies/Adverse Reactions: Allergies WORM MEDICATION Allergy (Uncoded 02/16/19 09:55) Hives Prior records reviewed: Yes Past Medical History: - - COPD Lives: With Family Smoking Status: Current every day smoker - Family History Maternal Family History: Family History (Last Reviewed 02/16/19 @ 12:07 by Mamadou Salas DO) Other Family history unknown Family History: Reports: No pertinent history Review of Systems General: Denies: Chills, Fever, Sweats Eyes: Denies: Visual changes - bilaterally, Diplopia ENT: Denies: Rhinorrhea, Sore throat Cardiovascular: Denies: Chest pain, Palpitations Respiratory: Reports: Dyspnea, Cough, Sputum, Dyspnea on exertion Gastrointestinal: Denies: Abdominal pain, Nausea, Vomiting, Diarrhea, Melena, Hematochezia Genitourinary: Denies: Dysuria, Hematuria, Frequency Musculoskeletal: Denies: Back pain, Extremity Pain Skin: Denies: Rash, Wounds Neurological: Denies: Headache, Weakness, Numbness Physical Exam Vital Signs/Narrative: Vital Signs Temp Pulse Resp BP Pulse Ox 02/16/19 11:25 66 18 126/50 H 94 02/16/19 09:53 98.2 F 74 18 147/60 H 85 General: Well nourished, Well developed, No Acute Distress Head: Normocephalic, Atraumatic Eyes: Perrl, EOMI ENT: Moist mucous membranes, No rhinorrhea Neck: Supple, Nontender Cardiovascular: Regular rate, Regular rhythm, No murmurs Respiratory: No distress, Chest nontender, - - Expiratory wheezing bilaterally. Abdomen: Soft, Nontender, Nondistended, Normal bowel sounds Back: Nontender, Normal Inspection Extremities: Nontender, No edema Skin: Normal color, No rash Neurological: Alert, Oriented x3, Cranial nerves II-XII grossly intact, Normal Strength, Normal Sensation Psychological: Normal affect, Normal Mood Diagnostic/Tx/Re-eval Chest X-Ray - ED: 1 View, No Acute Disease Impressions Chest X-Ray 02/16/19 10:52 IMPRESSION: Stable chest findings suspicious for underlying emphysematous change, obstructive pulmonary disease. Electronically Signed: Katarzyna Dorsey MD at 11:32 EST Tel , Service support , 02/16/19 10:52 Chest 1 View (Portable) [RAD] Stat Laboratory Results 02/16/19 02/16/19 11:00 11:00 WBC 7.3 RBC 4.53 L Hgb 13.8 Hct 43.4 MCV 95.8 H MCH 30.5 MCHC 31.8 L RDW Std Deviation 48.5 H RDW Coeff of Delia 13.7 Plt Count 143 L MPV 10.9 Immature Gran % (Auto) 0.400 Neut % (Auto) 71.5 H Lymph % (Auto) 16.7 L Williamson % (Auto) 10.2 H Eos % (Auto) 0.7 Baso % (Auto) 0.5 Absolute Neuts (auto) 5.2 Absolute Lymphs (auto) 1.22 Nucleated RBC % 0 Sodium 136 Potassium 4.2 Chloride 97 L Carbon Dioxide 33.0 H Anion Gap 6 BUN 34 H Creatinine 1.55 H Estim Creat Clear Calc 36.74 Est GFR (MDRD) Af Amer 56 L Est GFR (MDRD) Non-Af 46 L BUN/Creatinine Ratio 21.9 H Glucose 165 H Calcium 8.7 Troponin I < 0.015 - Medical Decision Making Patient in acute respiratory distress upon arrival. Bilateral wheezing. Requiring 3 L at rest. Patient given aerosols as well as Solu-Medrol. This does improve the patient's respiratory status. Chest x-ray shows no acute pneumonia. Lab work within normal limits. Patient was given small fluid bolus. Patient ambulated on his home 2 L and desaturated to 84%. Comfortable at 4 L at rest and will be admitted for COPD exacerbation with hypoxia. Patient agreeable with this plan and admitted in stable condition. ED Disposition - Plan for ED Patient: Disposition: Home or Assisted Living Diagnosis: COPD exacerbation, Hypoxia
--- NOTE | 2019-02-16 12:07 | CPS ---
x2 Albuterol given as well
--- NOTE | 2019-02-16 14:37 | HP.PCM_ITS ---
Problem List (1) COPD exacerbation Status: Acute History of Present Illness Date of Admission: 02/16/19 Chief Complaint: shortness of breath The patient is a 83 year old M presents with 1 day history of shortness of breath. He is on oxygen 2l/min. Presents to ED had a CXR that was unremarkable. Ambulated with 2liters and dropped pulse ox to mid 80s. Patient received methylprednisolone and BDs in ED. [] Past Medical History Past Medical History (Chronic Problems): Chronic Problems (Last Reviewed 01/13/19 @ 14:50 by Krystle Dumont, RAFA-C) Chronic respiratory failure with hypoxia (Chronic) Carotid stenosis, bilateral (Chronic) Peripheral arterial disease (Chronic) Coronary artery disease (Chronic) History of cardiac stents (Chronic) Dyslipidemia (Chronic) DM type 2 (diabetes mellitus, type 2) (Chronic) Hypertension (Chronic) COPD (chronic obstructive pulmonary disease) (Chronic) Medical History: Medical History (Last Reviewed 02/16/19 @ 14:40 by Michele Farris DO) History of pneumonia (Acute) Z87.01 History of bronchitis (Acute) Z87.09 COPD exacerbation (Acute) J44.1 Carotid stenosis, bilateral (Chronic) I65.23 Peripheral arterial disease (Chronic) Coronary artery disease (Chronic) History of cardiac stents (Chronic) Dyslipidemia (Chronic) E78.5 DM type 2 (diabetes mellitus, type 2) (Chronic) E11.9 Hypertension (Chronic) I10 COPD (chronic obstructive pulmonary disease) (Chronic) J44.9 Allergies WORM MEDICATION Allergy (Uncoded 02/16/19 09:55) Hives Home Medications: Ambulatory Orders Medication Instructions Recorded Aspirin [Aspirin, Baby] 81 mg PO DAILY@0800 01/18/17 Atorvastatin Calcium [Lipitor] 20 mg PO DAILY 01/18/17 Lisinopril/Hydrochlorothiazide 1 tab PO DAILY 01/18/17 [Zestoretic Tablet] Metoprolol Succinate [Toprol Xl] 50 mg PO DAILY 01/18/17 Nitroglycerin [Nitrostat] 0.4 mg SL PRN PRN 01/18/17 Pioglitazone HCl 15 mg PO DAILY 01/18/17 Tiotropium [place] [Spiriva] 18 mcg INHALATION DAILY 01/18/17 Albuterol Aerosols [Ventolin 2.5 mg INHALATION Q4H PRN PRN #30 10/01/18 Aerosols] vial.neb. Nebulizer [Aeroneb Go Nebulizer] 1 ea MC Q4H PRN #1 ea 10/01/18 glimepiride 1 mg tablet 1 mg PO QAM 12/16/18 meloxicam 15 mg tablet 15 mg PO DAILY PRN 12/16/18 metFORMIN HCl [Glucophage] 500 mg PO DAILY 02/16/19 Surgical History: Surgical History (Last Reviewed 02/16/19 @ 14:40 by Michele Farris DO) Hx of appendectomy (Resolved) Z90.49 Lives: With Family Smoking Status: Former smoker - *Family History Maternal Family History: Family History (Last Reviewed 02/16/19 @ 14:40 by Michele Farris DO) Other Family history unknown History Items: No pertinent history Review of Systems Constitutional: Denies: Anorexia, Chills, Fever Eyes: Denies: Blurred vision, Double vision HEENT: Denies: Head Aches, Sinus Congestion, Sinus Drainage Cardiovascular: Reports: Chest Pain. Denies: Palpitations Respiratory: Reports: Cough, Shortness of Breath Gastrointestinal: Denies: Abdominal Pain, Nausea, Vomiting Genitourinary: Denies: Dysuria Musculoskeletal: Denies: Joint Pain, Joint Tenderness Skin: Denies: Dryness, Jaundice Neurological: Denies: Numbness, Tingling, Focal weakness Psychiatric: Denies: Anxiety, Depression Hematologic/ Lymphatic: Denies: Easy Bruising, Easy Bleeding, Hx of blood clot Comment: All review of system otherwise negative except for as mentioned above and in HPI. VTE Information - Inpt Only VTE Present on Admission: No VTE Mechan Device Prophylaxis: None VTE Pharm Prophylaxis ordered?: Yes - Physical Exam Vitals/I&O's: Vital Signs Temp Pulse Resp BP Pulse Ox 36.8 C 81 17 123/52 H 95 02/16/19 09:53 02/16/19 13:00 02/16/19 13:00 02/16/19 13:00 02/16/19 13:00 Oxygen Flow Rate (L/min) 4 Oxygen Delivery Method Nasal Cannula Weight: 77.7 kg Body Mass Index (BMI) 25.2 Intake and Output for Last 24 Hours 02/14/19 02/15/19 02/16/19 23:59 23:59 23:59 Intake Total 500 / 500 Balance 500 / 500 General: Alert, Cooperative, No apparent distress HEENT: Atraumatic, Normocephalic Oral: Moist Mucosa, No Gingival or Mucosal Lesions/ Ulcerations Neck: No Nodes, Trachea Midline Lungs: Diminished, Wheezes Cardiovascular: Regular rate, Regular Rhythm, Normal S1, Normal S2, No murmurs Abdomen: Bowel Sounds Present, Soft, Non Tender, Non-Distended, No Hepato- splenomegaly Extremities: No edema, No Calf Tenderness Skin: No rashes, No breakdown Musculoskeletal: No Tenderness to Palpation of Joints or Extremities, No Muscle Wasting Neurological: Deep Tendon Reflexes 2+/4 and Symmetrical, - - no clonus. Psych/Mental Status: Normal Affect, Appropriate Laboratory Results 02/16/19 11:00: WBC 7.3, RBC 4.53 L, Hgb 13.8, Hct 43.4, MCV 95.8 H, MCH 30.5, MCHC 31.8 L, RDW Std Deviation 48.5 H, RDW Coeff of Delia 13.7, Plt Count 143 L, MPV 10.9, Immature Gran % (Auto) 0.400, Neut % (Auto) 71.5 H, Lymph % (Auto) 16.7 L, [place] % (Auto) 10.2 H, Eos % (Auto) 0.7, Baso % (Auto) 0.5, Absolute Neuts (auto) 5.2, Absolute Lymphs (auto) 1.22, Nucleated RBC % 0 02/16/19 11:00: Sodium 136, Potassium 4.2, Chloride 97 L, Carbon Dioxide 33.0 H, Anion Gap 6, BUN 34 H, Creatinine 1.55 H, Estim Creat Clear Calc 36.74, Est GFR (MDRD) Af Amer 56 L, Est GFR (MDRD) Non-Af 46 L, BUN/Creatinine Ratio 21.9 H, Glucose 165 H, Calcium 8.7, Troponin I < 0.015 CXR reviewed. Showed no acute process. Current Medications Sodium Chloride () 500 mls @ 999 mls/hr IV .Q31M ONE Last Infusion: 02/16/19 13:10 Dose: Infused Documented by: Sodium Chloride () 250 mls @ 15 mls/hr IV .[id number] PRN PRN Reason: Saline Flush Sodium Chloride () 250 mls @ 15 mls/hr IV .[id number] PRN PRN Reason: Additional IVPB Infusion Sodium Chloride () 10 - 40 ml IV UD PRN PRN Reason: SALINE FLUSH Assessment/Plan All Active Problems (Last Reviewed 01/13/19 @ 14:50 by Krystle Dumont NP-C) History of pneumonia (Acute) History of bronchitis (Acute) Hx of appendectomy (Resolved) COPD exacerbation (Acute) 1. AECOPD: * continue BDs and methylpred * check respiratory viral panel 2. acute hypoxic respiratory insufficiency * wean oxygen back to baseline 3. VTE proph: LMWH 4. ACP: Full code, no intubation. Code Visit Inpatient E&M: 43620 Init Hosp L3
[2019-02-16 15:25] LABS: Bedside Glucose 211 mg/dL (70-110)
[2019-02-16] MEDS: Insulin Lispro 100 UNIT/ML INSULN.PEN SC (16:20)
[2019-02-16] MEDS: Ondansetron 4 MG/2 ML Vial IV (18:01)
[2019-02-16 21:30] LABS: Bedside Glucose 307 mg/dL (70-110)
--- NOTE | 2019-02-16 23:13 | CPS ---
pt increased to 4lpm due to saturation being 85%.
[2019-02-17] VITALS (12 sets, daily range): BP systolic 124–129; BP diastolic 46–56; PULSE 81–98; RESP 18–20; TEMP 36.5–36.9; O2SAT 90–97
[2019-02-17] MEDS: Ipratropium/Albuterol Sulfate 3 ML AMPUL.NEB INHALATION ×5 (03:19→23:25)
[2019-02-17 06:24] LABS: Anion Gap 8 (5-15); BUN 40 mg/dL (7-18); BUN/Creat Ratio 24.5 RATIO (10-20); Calcium,Total 8.8 mg/dL (8.5-10.1); Chloride 96 mmol/L (98-107); Creatinine, Serum 1.63 mg/dL (0.70-1.30); EST Glomerular Filtration Rate 43 mL/min (>60); Est Glom Filt Rate - Afr Amer 52 mL/min (>60); Estimated Creatinine Clearance 34.94 ml/min; Glucose 294 mg/dL (74-106); Sodium Level 133 mmol/L (136-145)
[2019-02-17] MEDS: Insulin Lispro 100 UNIT/ML INSULN.PEN SC ×4 (06:53→23:29)
[2019-02-17 07:01] LABS: Bedside Glucose 317 mg/dL (70-110)
[2019-02-17] MEDS: metFORMIN HCl 500 MG Tablet PO (09:14)
[2019-02-17] MEDS: Atorvastatin Calcium 20 MG Tablet PO (09:14)
[2019-02-17] MEDS: hydroCHLOROthiazide 25 MG Tablet PO (09:14)
[2019-02-17] MEDS: Aspirin 81 MG TAB.CHEW PO (09:14)
[2019-02-17] MEDS: Glimepiride 1 MG Tablet PO (09:14)
[2019-02-17] MEDS: Metoprolol(XL)Succ 50 MG Tablet PO (09:14)
[2019-02-17] MEDS: Pioglitazone Hydrochloride 15 MG Tablet PO (09:14)
[2019-02-17] MEDS: Enoxaparin 40 MG/0.4 ML Syringe SC (09:15)
--- NOTE | 2019-02-17 09:34 | PCM.PN.HOSP ---
Patient Problems: Active and Suspected Problems (Last Reviewed 02/16/19 @ 14:40 by Michele Farris DO) Hypoxia (Acute) COPD exacerbation (Acute) Reason for Visit: COPD exac Subjective: breathing better. coughing, but non-productive. Vitals/I&O's: Vital Signs Temp Pulse Resp BP Pulse Ox 36.8 C 98 20 H 128/46 H 94 02/17/19 07:43 02/17/19 09:14 02/17/19 07:43 02/17/19 07:43 02/17/19 07:43 Oxygen Flow Rate (L/min) 4 Oxygen Delivery Method Nasal Cannula Weight: 77.7 kg Body Mass Index (BMI) 25.2 Intake and Output for Last 24 Hours 02/15/19 02/16/19 02/17/19 23:59 23:59 23:59 Intake Total 1025 / 1025 Balance 1025 / 1025 General: Alert, No apparent distress HEENT: Atraumatic, Normocephalic Oral: Moist Mucosa, No Gingival or Mucosal Lesions/ Ulcerations Neck: No Nodes, Trachea Midline Lungs: Diminished Cardiovascular: Regular rate, Regular Rhythm, Normal S1, Normal S2, No murmurs Abdomen: Bowel Sounds Present, Soft, Non Tender, Non-Distended, No Hepato-splenomegaly Extremities: No edema, No Calf Tenderness Skin: No rashes, No breakdown Psych/Mental Status: Normal Affect, Appropriate Microbiology Past 72 Hours 02/16/19 15:51 Mucosa - Nasopharyngeal Influenza Types A,B Direct FA (TESHA) - Final Laboratory Results 02/16/19 11:00: WBC 7.3, RBC 4.53 L, Hgb 13.8, Hct 43.4, MCV 95.8 H, MCH 30.5, MCHC 31.8 L, RDW Std Deviation 48.5 H, RDW Coeff of Delia 13.7, Plt Count 143 L, MPV 10.9, Immature Gran % (Auto) 0.400, Neut % (Auto) 71.5 H, Lymph % (Auto) 16.7 L, Karnes % (Auto) 10.2 H, Eos % (Auto) 0.7, Baso % (Auto) 0.5, Absolute Neuts (auto) 5.2, Absolute Lymphs (auto) 1.22, Nucleated RBC % 0 02/16/19 11:00: Sodium 136, Potassium 4.2, Chloride 97 L, Carbon Dioxide 33.0 H, Anion Gap 6, BUN 34 H, Creatinine 1.55 H, Estim Creat Clear Calc 36.74, Est GFR (MDRD) Af Amer 56 L, Est GFR (MDRD) Non-Af 46 L, BUN/Creatinine Ratio 21.9 H, Glucose 165 H, Calcium 8.7, Troponin I < 0.015 02/16/19 15:13: POC Glucose 211 H 02/16/19 21:24: POC Glucose 307 H 02/17/19 05:44: Sodium 133 L, Potassium 4.0, Chloride 96 L, Carbon Dioxide 29.0, Anion Gap 8, BUN 40 H, Creatinine 1.63 H, Estim Creat Clear Calc 34.94, Est GFR (MDRD) Af Amer 52 L, Est GFR (MDRD) Non-Af 43 L, BUN/Creatinine Ratio 24.5 H, Glucose 294 H, Calcium 8.8 02/17/19 06:52: POC Glucose 317 H Current Medications Acetaminophen (Tylenol) 650 mg PO Q6H PRN PRN PRN Reason: Pain Score 1-3/Temp > 100.7 F Albuterol Sulfate (Ventolin Aerosols) 2.5 mg INHALATION Q2H PRN PRN PRN Reason: Shortness of Breath/Wheezing Albuterol/Ipratropium (Duoneb) 3 ml INHALATION Q4H.RT [facility] Last Admin: 02/17/19 07:03 Dose: 3 ml Documented by: Aspirin (Aspirin, Baby) 81 mg PO DAILY@0800 [facility] Last Admin: 02/17/19 09:14 Dose: 81 mg Documented by: Atorvastatin Calcium (Lipitor) 20 mg PO DAILY [facility] Last Admin: 02/17/19 09:14 Dose: 20 mg Documented by: Enoxaparin Sodium (Lovenox) 40 mg SC DAILY [facility] Last Admin: 02/17/19 09:15 Dose: 40 mg Documented by: Glimepiride (Amaryl) 1 mg PO DAILY@0800 [facility] Last Admin: 02/17/19 09:14 Dose: 1 mg Documented by: Glucagon () 1 mg IM .X1 PRN PRN Reason: Hypoglycemia Hydrochlorothiazide (Hctz) 25 mg PO DAILY [facility] Last Admin: 02/17/19 09:14 Dose: 25 mg Documented by: Sodium Chloride () 500 mls @ 999 mls/hr IV .Q31M ONE Last Infusion: 02/16/19 13:10 Dose: Infused Documented by: Dextrose (Dextrose 10%-Water) 250 mls @ 999 mls/hr IV .Q16M PRN; Protocol PRN Reason: HYPOGLYCEMIA Insulin Human Lispro (Humalog Kwikpen (Bkc)) 0 unit SC TIDAC [facility]; Protocol Last Admin: 02/17/19 06:53 Dose: 5 units Documented by: Lisinopril (Zestril) 20 mg PO DAILY [facility] Melatonin (Melatonin) 3 mg PO QHS PRN PRN PRN Reason: INSOMNIA Meloxicam (Mobic) 15 mg PO DAILY PRN PRN PRN Reason: Pain or Fever Metformin [facility] (Glucophage) [facility] Last Admin: 02/17/19 09:14 Dose: 500 mg Documented by: Methylprednisolone (Solu-Medrol) 40 mg IV Q8 [facility] Last Admin: 02/17/19 06:53 Dose: 40 mg Documented by: Metoprolol Succinate (Toprol Xl (Beta Estevan)) 50 mg PO DAILY [facility] Last Admin: 02/17/19 09:14 Dose: 50 mg Documented by: Nitroglycerin (Nitrostat) 0.4 mg SUBLINGUAL Q5M PRN PRN Reason: ANGINA Nutritional Formula (Lactose Free) (Glucerna Shake) 120 ml PO TIDCM [facility] Last Admin: 02/17/19 09:21 Dose: Not Given Documented by: Ondansetron HCl (Zofran) 4 mg IV Q8H PRN PRN PRN Reason: NAUSEA/VOMITING Last Admin: 02/16/19 18:01 Dose: 4 mg Documented by: Pioglitazone HCl (Actos) 15 mg PO DAILY [facility] Last Admin: 02/17/19 09:14 Dose: 15 mg Documented by: STROKE Vital Signs/Narrative: Vital Signs Temp Pulse Resp BP Pulse Ox 02/17/19 09:14 98 02/17/19 07:43 36.8 C 98 20 H 128/46 H 94 02/17/19 07:22 81 19 H 02/17/19 07:21 90 Medical Necessity - Tobacco Use Smoking Status: Former smoker Assessment/Plan All Active Problems (Last Reviewed 02/16/19 @ 14:40 by Michele Farris DO) Hypoxia (Acute) History of pneumonia (Acute) History of bronchitis (Acute) Hx of appendectomy (Resolved) COPD exacerbation (Acute) 1. AECOPD: continue BDs and methylpred check respiratory viral panel 2. acute hypoxic respiratory insufficiency wean oxygen back to baseline as tolerated 3. VTE proph: LMWH 4. ACP: Full code, no intubation. Code Visit Inpatient E&M: 42414 Subs Hosp L2
--- NOTE | 2019-02-17 11:39 | CASEMGMT ---
RN CM Assessment Presentation: COPD exacerbation Intro role of CM and purpose of RN CM assessment to patient in room. Pt is awake, alert and able to participate in assessment. Demographics, PCP and Pharmacy verified. Pt states he lives independently in own home. No care needs identified at this time. Pt states has DME at home, not using @ this time. PCP: Dr. July BHATTI Specialists: Robyn, esthetician/skin therapist Preferred Pharmacy: [facility] Insurance: [facility] Prescription Benefit: yes LNOK: son, andre moise Living Arrangements: one story home with 3 steps into home. Independent Transportation: self/son DME: shower chair, BSC, cane, grab bars, walker, WC, oxygen through [facility]: 2L, states has concentrator and portability, nebulizer and pulse ox. HHC/SNF: none currently. Patient DC goals: Home DC PLAN: Home on dc.ANDRE Tanner BSN ACM
[2019-02-17 12:50] LABS: Bedside Glucose 285 mg/dL (70-110)
[2019-02-17 16:41] LABS: Bedside Glucose 210 mg/dL (70-110)
[2019-02-17] MEDS: 0.9% Saline Lock 10 ML Syringe IV (22:26)
[2019-02-17 22:35] LABS: Bedside Glucose 271 mg/dL (70-110)
[2019-02-18] VITALS (13 sets, daily range): BP systolic 130–142; BP diastolic 59–64; PULSE 70–91; RESP 18–24; TEMP 36.2–37.9; O2SAT 84–97
[2019-02-18] MEDS: 0.9% Saline Lock 10 ML Syringe IV (06:36)
[2019-02-18] MEDS: Insulin Lispro 100 UNIT/ML INSULN.PEN SC ×4 (06:42→23:07)
[2019-02-18 06:51] LABS: Bedside Glucose 229 mg/dL (70-110)
[2019-02-18] MEDS: Ipratropium/Albuterol Sulfate 3 ML AMPUL.NEB INHALATION ×4 (07:50→23:43)
[2019-02-18] MEDS: metFORMIN HCl 500 MG Tablet PO (09:18)
[2019-02-18] MEDS: Aspirin 81 MG TAB.CHEW PO (09:18)
[2019-02-18] MEDS: hydroCHLOROthiazide 25 MG Tablet PO (09:18)
[2019-02-18] MEDS: Glimepiride 1 MG Tablet PO (09:18)
[2019-02-18] MEDS: Lisinopril 20 MG Tablet PO (09:18)
[2019-02-18] MEDS: Metoprolol(XL)Succ 50 MG Tablet PO (09:19)
[2019-02-18] MEDS: Enoxaparin 40 MG/0.4 ML Syringe SC (09:19)
[2019-02-18] MEDS: Pioglitazone Hydrochloride 15 MG Tablet PO (09:25)
[2019-02-18] MEDS: Atorvastatin Calcium 20 MG Tablet PO (09:25)
--- NOTE | 2019-02-18 10:29 | PCM.PN.HOSP ---
Patient Problems: Active and Suspected Problems (Last Reviewed 02/16/19 @ 14:40 by Michele Farris DO) Hypoxia (Acute) COPD exacerbation (Acute) Reason for Visit: Breathing still short. Still coughing. Vitals/I&O's: Vital Signs Temp Pulse Resp BP Pulse Ox 36.2 C L 70 20 H 130/63 H 94 02/18/19 09:03 02/18/19 09:19 02/18/19 09:03 02/18/19 09:03 02/18/19 09:03 Oxygen Flow Rate (L/min) 4 Oxygen Delivery Method Nasal Cannula Weight: 77.7 kg Body Mass Index (BMI) 25.2 Intake and Output for Last 24 Hours 02/16/19 02/17/19 02/18/19 23:59 23:59 23:59 Intake Total 1025 / 1025 1300 / 1300 400 / 400 Balance 1025 / 1025 1300 / 1300 400 / 400 General: Alert, Cooperative HEENT: Atraumatic, Normocephalic Oral: Moist Mucosa, No Gingival or Mucosal Lesions/ Ulcerations Lungs: Diminished, - - coarse breath sounds bilaterally. Cardiovascular: Regular rate, Regular Rhythm, Normal S1, Normal S2 Abdomen: Bowel Sounds Present, Soft, Non Tender, Non-Distended, No Hepato-splenomegaly Extremities: No edema, No Calf Tenderness Skin: No rashes, No breakdown Psych/Mental Status: Normal Affect, Appropriate Microbiology Past 72 Hours 02/16/19 15:51 Mucosa - Nasopharyngeal Respiratory Panel (PCR) - Final RSV A 02/16/19 15:51 Mucosa - Nasopharyngeal Influenza Types A,B Direct FA (TESHA) - Final Laboratory Results 02/17/19 12:22: POC Glucose 285 H 02/17/19 16:28: POC Glucose 210 H 02/17/19 22:21: POC Glucose 271 H 02/18/19 06:33: POC Glucose 229 H Current Medications Acetaminophen (Tylenol) 650 mg PO Q6H PRN PRN PRN Reason: Pain Score 1-3/Temp > 100.7 F Albuterol Sulfate (Ventolin Aerosols) 2.5 mg INHALATION Q2H PRN PRN PRN Reason: Shortness of Breath/Wheezing Albuterol/Ipratropium (Duoneb) 3 ml INHALATION Q4H.RT [facility] Last Admin: 02/18/19 07:50 Dose: 3 ml Documented by: Aspirin (Aspirin, Baby) 81 mg PO DAILY@0800 [facility] Last Admin: 02/18/19 09:18 Dose: 81 mg Documented by: Atorvastatin Calcium (Lipitor) 20 mg PO DAILY [facility] Last Admin: 02/18/19 09:25 Dose: 20 mg Documented by: Enoxaparin Sodium (Lovenox) 40 mg SC DAILY [facility] Last Admin: 02/18/19 09:19 Dose: 40 mg Documented by: Glimepiride (Amaryl) 1 mg PO DAILY@0800 [facility] Last Admin: 02/18/19 09:18 Dose: 1 mg Documented by: Glucagon () 1 mg IM .X1 PRN PRN Reason: Hypoglycemia Hydrochlorothiazide (Hctz) 25 mg PO DAILY [facility] Last Admin: 02/18/19 09:18 Dose: 25 mg Documented by: Sodium Chloride () 500 mls @ 999 mls/hr IV .Q31M ONE Last Infusion: 02/16/19 13:10 Dose: Infused Documented by: Dextrose (Dextrose 10%-Water) 250 mls @ 999 mls/hr IV .Q16M PRN; Protocol PRN Reason: HYPOGLYCEMIA Insulin Human Lispro (Humalog Kwikpen (Bkc)) 0 unit SC [facility]; Protocol Last Admin: 02/18/19 06:42 Dose: 2 u Documented by: Lisinopril (Zestril) 20 mg PO DAILY [facility] Last Admin: 02/18/19 09:18 Dose: 20 mg Documented by: Melatonin (Melatonin) 3 mg PO QHS PRN PRN PRN Reason: INSOMNIA Meloxicam (Mobic) 15 mg PO DAILY PRN PRN PRN Reason: Pain or Fever [facility] Last Admin: 02/18/19 09:18 Dose: 500 mg Documented by: Metoprolol Succinate (Toprol Xl (Beta Estevan)) 50 mg PO DAILY [facility] Last Admin: 02/18/19 09:19 Dose: 50 mg Documented by: Nitroglycerin (Nitrostat) 0.4 mg SUBLINGUAL Q5M PRN PRN Reason: ANGINA Ondansetron HCl (Zofran) 4 mg IV Q8H PRN PRN PRN Reason: NAUSEA/VOMITING Last Admin: 02/16/19 18:01 Dose: 4 mg Documented by: Pioglitazone HCl (Actos) 15 mg PO DAILY [facility] Last Admin: 02/18/19 09:25 Dose: 15 mg Documented by: Sodium Chloride () 10 - 40 ml IV UD PRN PRN Reason: SALINE FLUSH Last Admin: 02/18/19 06:36 Dose: 10 ml Documented by: STROKE Vital Signs/Narrative: Vital Signs Temp Pulse Resp BP Pulse Ox 02/18/19 09:19 70 02/18/19 09:08 70 02/18/19 09:03 36.2 C L 83 20 H 130/63 H 94 02/18/19 07:50 80 18 97 Medical Necessity - Tobacco Use Smoking Status: Former smoker Assessment/Plan All Active Problems (Last Reviewed 02/16/19 @ 14:40 by Michele Farris DO) Hypoxia (Acute) History of pneumonia (Acute) History of bronchitis (Acute) Hx of appendectomy (Resolved) COPD exacerbation (Acute) 1. AECOPD: slow improvement wean steroids to Q12, if improved, then could discharge with prednisone burst exacerbated by RSV A 2. acute hypoxic respiratory insufficiency wean oxygen back to baseline as tolerated 3. VTE proph: LMWH 4. ACP: Full code, no intubation. 5. Disposition: pending improvement of COPD, hopefully next 24-48h. Will have PT/OT eval and treat. 6. DMs uncontrolled and elevated exacerbation due to steroids continue metformin and SSI a1c 7.8 from September--will recheck Code Visit Inpatient E&M: 51872 Subs Hosp L2
[2019-02-18 11:55] LABS: Bedside Glucose 342 mg/dL (70-110)
[2019-02-18 18:05] LABS: Bedside Glucose 211 mg/dL (70-110)
[2019-02-18] MEDS: Acetaminophen 325 MG Tablet 650 MG PO (23:27)
--- NOTE | 2019-02-18 23:56 | CPS ---
Per notes from PMW office visit with Krystle Dumont on 01/13/19 patient is to maintain a saturation of 89-92%. During his 6 minute walk test it was determined that he requires 3 L of nasal cannula oxygen at rest and 6 L of nasal cannula oxygen with exertion.
[2019-02-19] VITALS (13 sets, daily range): BP systolic 106–147; BP diastolic 50–69; PULSE 71–95; RESP 18–28; TEMP 36.4–37.3; O2SAT 94–96
[2019-02-19 00:10] LABS: Bedside Glucose 170 mg/dL (70-110)
[2019-02-19] MEDS: Insulin Lispro 100 UNIT/ML INSULN.PEN SC ×4 (06:35→22:58)
[2019-02-19 06:45] LABS: Bedside Glucose 277 mg/dL (70-110)
[2019-02-19] MEDS: Ipratropium/Albuterol Sulfate 3 ML AMPUL.NEB INHALATION ×5 (06:53→23:00)
[2019-02-19] MEDS: Glimepiride 1 MG Tablet PO (08:07)
[2019-02-19] MEDS: metFORMIN HCl 500 MG Tablet PO (08:07)
[2019-02-19] MEDS: Aspirin 81 MG TAB.CHEW PO (08:07)
[2019-02-19] MEDS: Lisinopril 20 MG Tablet PO (10:48)
[2019-02-19] MEDS: Metoprolol(XL)Succ 50 MG Tablet PO (10:48)
[2019-02-19] MEDS: Atorvastatin Calcium 20 MG Tablet PO (10:48)
[2019-02-19] MEDS: Enoxaparin 40 MG/0.4 ML Syringe SC (10:49)
[2019-02-19] MEDS: Pioglitazone Hydrochloride 15 MG Tablet PO (10:49)
[2019-02-19] MEDS: hydroCHLOROthiazide 25 MG Tablet PO (10:49)
[2019-02-19 11:26] LABS: Bedside Glucose 298 mg/dL (70-110)
[2019-02-19 16:45] LABS: Bedside Glucose 222 mg/dL (70-110)
--- NOTE | 2019-02-19 18:00 | PN_ITS ---
Patient Problems: Active and Suspected Problems (Last Reviewed 02/16/19 @ 14:40 by Michele Farris DO) Hypoxia (Acute) COPD exacerbation (Acute) Subjective: Patient was seen and examined today, he is requiring 5 L of nasal cannula O2 to maintain his pulse ox. Patient's respiratory panel was positive for RSV. - Physical Exam Vitals/I&O's: Vital Signs Temp Pulse Resp BP Pulse Ox 99.1 F 95 20 H 122/54 H 94 02/19/19 15:15 02/19/19 15:19 02/19/19 15:19 02/19/19 15:15 02/19/19 15:15 Oxygen Flow Rate (L/min) 5 Oxygen Delivery Method Nasal Cannula Weight: 77.7 kg Body Mass Index (BMI) 25.2 Intake and Output for Last 24 Hours 02/17/19 02/18/19 02/19/19 23:59 23:59 23:59 Intake Total 1300 / 1300 400 / 400 550 / 550 Balance 1300 / 1300 400 / 400 550 / 550 General: Alert, Oriented x3, Cooperative, Well developed, Well nourished HEENT: Atraumatic, PERRLA, EOMI, Normocephalic Oral: Moist Mucosa Neck: Supple, Trachea Midline, Thyroid Normal Size and Texture Lungs: Diminished, Rhonchi - Expiratory rhonchi are noted bilaterally, Wheezes - Scattered expiratory wheezes are noted bilaterally Cardiovascular: Regular rate, Regular Rhythm, Normal S1, Normal S2, No murmurs, PMI Normal, No rub noted, No Gallop Abdomen: Bowel Sounds Present, Soft, Non Tender, Non-Distended Extremities: No clubbing, No cyanosis, No edema, Capillary Refill Less than 3 Seconds Skin: No rashes, No breakdown Musculoskeletal: No Tenderness to Palpation of Joints or Extremities Neurological: Cranial nerves II-XII grossly intact, Neuro grossly intact, Sensory exam intact to light touch and pain Psych/Mental Status: Normal Affect, Appropriate, Alert and oriented to time, place, person, mood and affect Microbiology Past 72 Hours 02/16/19 15:51 Mucosa - Nasopharyngeal Respiratory Panel (PCR) - Final RSV A 02/16/19 15:51 Mucosa - Nasopharyngeal Influenza Types A,B Direct FA (TESHA) - Final Laboratory Results 02/18/19 16:20: POC Glucose 211 H 02/18/19 23:12: POC Glucose 170 H 02/19/19 06:33: POC Glucose 277 H 02/19/19 11:22: POC Glucose 298 H 02/19/19 16:37: POC Glucose 222 H Current Medications Acetaminophen (Tylenol) 650 mg PO Q6H PRN PRN PRN Reason: Pain Score 1-3/Temp > 100.7 F Last Admin: 02/18/19 23:27 Dose: 650 mg Documented by: Albuterol Sulfate (Ventolin Aerosols) 2.5 mg INHALATION Q2H PRN PRN PRN Reason: Shortness of Breath/Wheezing Albuterol/Ipratropium (Duoneb) 3 ml INHALATION Q4H.RT [facility] Last Admin: 02/19/19 15:19 Dose: 3 ml Documented by: Aspirin (Aspirin, Baby) 81 mg PO DAILY@0800 [facility] Last Admin: 02/19/19 08:07 Dose: 81 mg Documented by: Atorvastatin Calcium (Lipitor) 20 mg PO DAILY [facility] Last Admin: 02/19/19 10:48 Dose: 20 mg Documented by: Enoxaparin Sodium (Lovenox) 40 mg SC DAILY [facility] Last Admin: 02/19/19 10:49 Dose: 40 mg Documented by: Glimepiride (Amaryl) 1 mg PO DAILY@0800 [facility] Last Admin: 02/19/19 08:07 Dose: 1 mg Documented by: Glucagon () 1 mg IM .X1 PRN PRN Reason: Hypoglycemia Hydrochlorothiazide (Hctz) 25 mg PO DAILY [facility] Last Admin: 02/19/19 10:49 Dose: 25 mg Documented by: Sodium Chloride () 500 mls @ 999 mls/hr IV .Q31M ONE Last Infusion: 02/16/19 13:10 Dose: Infused Documented by: Dextrose (Dextrose 10%-Water) 250 mls @ 999 mls/hr IV .Q16M PRN; Protocol PRN Reason: HYPOGLYCEMIA Insulin Human Lispro (Humalog Kwikpen (Bkc)) 0 unit SC [facility]; Protocol Last Admin: 02/19/19 16:39 Dose: 2 u Documented by: Lisinopril (Zestril) 20 mg PO DAILY [facility] Last Admin: 02/19/19 10:48 Dose: 20 mg Documented by: Melatonin (Melatonin) 3 mg PO QHS PRN PRN PRN Reason: INSOMNIA Meloxicam (Mobic) 15 mg PO DAILY PRN PRN PRN Reason: Pain or Fever [facility]) [facility] Last Admin: 02/19/19 08:07 Dose: 500 mg Documented by: Methylprednisolone (Solu-Medrol) 40 mg IV Q8 [facility] Last Admin: 02/19/19 11:46 Dose: 40 mg Documented by: Metoprolol Succinate (Toprol Xl (Beta Estevan)) 50 mg PO DAILY [facility] Last Admin: 02/19/19 10:48 Dose: 50 mg Documented by: Nitroglycerin (Nitrostat) 0.4 mg SUBLINGUAL Q5M PRN PRN Reason: ANGINA Ondansetron HCl (Zofran) 4 mg IV Q8H PRN PRN PRN Reason: NAUSEA/VOMITING Last Admin: 02/16/19 18:01 Dose: 4 mg Documented by: Pioglitazone HCl (Actos) 15 mg PO DAILY [facility] Last Admin: 02/19/19 10:49 Dose: 15 mg Documented by: Sodium Chloride () 10 - 40 ml IV UD PRN PRN Reason: SALINE FLUSH Last Admin: 02/18/19 06:36 Dose: 10 ml Documented by: Medical Necessity - Tobacco Use Smoking Status: Former smoker Assessment/Plan All Active Problems (Last Reviewed 02/16/19 @ 14:40 by Michele Farris DO) Hypoxia (Acute) History of pneumonia (Acute) History of bronchitis (Acute) Hx of appendectomy (Resolved) COPD exacerbation (Acute) #1 acute exacerbation of COPD-exacerbated by acute RSV A upper respiratory infection-I increased the patient's Solu-Medrol to 40 mg every 8 hours, continue aerosol treatments #2 acute on chronic hypoxic respiratory failure-continue to try to wean patient's oxygen #3 type 2 diabetes-continue present treatment #4 essential hypertension Code Visit Inpatient E&M: 33393 Subs Hosp L2
[2019-02-19] MEDS: 0.9% Saline Lock 10 ML Syringe IV (22:55)
[2019-02-20] VITALS (7 sets, daily range): BP systolic 128–151; BP diastolic 62–77; PULSE 75–94; RESP 18–20; TEMP 36.3–37.1; O2SAT 86–98
[2019-02-20 00:11] LABS: Bedside Glucose 320 mg/dL (70-110)
[2019-02-20] MEDS: 0.9% Saline Lock 10 ML Syringe IV ×2 (06:13→14:38)
[2019-02-20] MEDS: Insulin Lispro 100 UNIT/ML INSULN.PEN SC ×2 (06:42→12:02)
[2019-02-20 06:50] LABS: Bedside Glucose 301 mg/dL (70-110)
[2019-02-20] MEDS: Ipratropium/Albuterol Sulfate 3 ML AMPUL.NEB INHALATION (07:17)
[2019-02-20] MEDS: Aspirin 81 MG TAB.CHEW PO (08:21)
[2019-02-20] MEDS: Glimepiride 1 MG Tablet PO (08:21)
[2019-02-20] MEDS: metFORMIN HCl 500 MG Tablet PO (08:22)
[2019-02-20] MEDS: Meloxicam 15 MG Tablet PO (08:30)
[2019-02-20] MEDS: Lisinopril 20 MG Tablet PO (10:54)
[2019-02-20] MEDS: Metoprolol(XL)Succ 50 MG Tablet PO (10:54)
[2019-02-20] MEDS: Pioglitazone Hydrochloride 15 MG Tablet PO (10:55)
[2019-02-20] MEDS: hydroCHLOROthiazide 25 MG Tablet PO (10:55)
[2019-02-20] MEDS: Atorvastatin Calcium 20 MG Tablet PO (10:55)
[2019-02-20] MEDS: Enoxaparin 40 MG/0.4 ML Syringe SC (10:55)
[2019-02-20 12:15] LABS: Bedside Glucose 290 mg/dL (70-110)
--- NOTE | 2019-02-20 12:43 | DCINST_ITS ---
- Discharge Diagnoses Current Active Problems: Current Active and Chronic Problems (Last Reviewed 02/16/19 @ 14:40 by Michele Farris DO) Hypoxia (Acute) COPD exacerbation (Acute) You will use the following diet at home:: Calorie/Carbohydrate Controlled (specify 1200, 1400, etc) - 1800 jessie Your food should be the consistency of: Regular Your liquids should be the consistency of: Regular/Thin Discharge Activity: Return to Normal Activity Weight Bearing Status: Full weight bearing Additional Instructions: oxygen at 4 liters per min Allergies/Adverse Reactions: Allergies WORM MEDICATION Allergy (Uncoded 02/16/19 09:55) Hives Medications to take at Discharge Aspirin [Aspirin, Baby] 81 mg PO DAILY@0800 01/18/17 Atorvastatin Calcium [Lipitor] 20 mg PO DAILY 01/18/17 Lisinopril/Hydrochlorothiazide [Zestoretic Tablet] 1 tab PO DAILY 01/18/17 Metoprolol Succinate [Toprol Xl] 50 mg PO DAILY 01/18/17 Nitroglycerin [Nitrostat] 0.4 mg SL PRN PRN 01/18/17 Pioglitazone HCl 15 mg PO DAILY 01/18/17 Tiotropium [place] [Spiriva] 18 mcg INHALATION DAILY 01/18/17 Albuterol Aerosols [Ventolin Aerosols] 2.5 mg INHALATION Q4H PRN PRN #30 vial.neb. 10/01/18 Nebulizer [Aeroneb Go Nebulizer] 1 ea MC Q4H PRN #1 ea 10/01/18 glimepiride 1 mg tablet 1 mg PO QAM 12/16/18 meloxicam 15 mg tablet 15 mg PO DAILY PRN 12/16/18 metFORMIN HCl [Glucophage] 500 mg PO DAILY 02/16/19 Prednisone 10 mg PO UD #30 tab 02/20/19 The following prescriptions were given: Prednisone 10 mg PO UD #30 tab Prescription Printed Primary Care Physician: Kevin Mcdowell III, MD [Primary Care Provider] - Please follow up with your Primary Care Physician in: next week Test Results: Test results from this visit will be discussed in further detail at your follow- up appointment, if applicable.
--- NOTE | 2019-02-20 14:55 | NURSING ---
O2 TESTING FOR HOME - RA- 86% AT REST- 4L REAPPLED AND RETURNED TO 94% THEN WITH AMBULATING WITH 4 L DROPPED 82% INCREASED O2 TO 6L AND RECOVERED AT 92%
--- NOTE | 2019-02-20 15:28 | CASEMGMT ---
ANDRE CHANDLER updated that patient will require more oxygen at discharge. Patient is on 2lpm at home prior to hospitalization through [facility]. Patient is now requiring 4 lpm at rest and 6 lpm with activity. ANDRE CHANDLER received new script for 4-6 lpm and faxed to [facility]. Patient has tank in room for transport home that goes up to 4 lpm.
--- NOTE | 2019-02-21 13:16 | CASEMGMT ---
ANDRE CHANDLER DC PHONE CALL DC DATE: 02/20/2019 DC Disposition: Home Diagnosis on Discharge: COPD LACE/STRATA:01/06 Intro role of CM to patient via phone. Pt still has cough, states he is feeling better. Denies any questions re: medications or instructions. F/U appointments have not been made yet. ANDRE CHANDLER recommended he make them today. Pt agreed. Ciro STATON RN ACM
--- NOTE | 2019-02-24 14:57 | PCM.DC.SUM ---
Discharge Date and Diagnosis Date of Admission: 02/16/19 Date of Discharge: 02/20/19 - Primary Discharge Diagnosis #1 acute exacerbation of COPD-exacerbated by acute RSV A upper respiratory infection #2 acute on chronic hypoxic respiratory failure- #3 type 2 diabetes-continue present treatment #4 essential hypertension #5 acute tracheobronchitis secondary to RSV A infection - Secondary Discharge Diagnosis Chronic Problems (Last Reviewed 02/16/19 @ 14:40 by Michele Farris DO) Chronic respiratory failure with hypoxia (Chronic) Carotid stenosis, bilateral (Chronic) Peripheral arterial disease (Chronic) Coronary artery disease (Chronic) History of cardiac stents (Chronic) Dyslipidemia (Chronic) DM type 2 (diabetes mellitus, type 2) (Chronic) Hypertension (Chronic) COPD (chronic obstructive pulmonary disease) (Chronic) Hospital Course and Treatment Operations: None Procedures: None Summary of Care Provided: The patient is a 83 year old M was seen in the emergency room at [facility] with a chief complaint of shortness of breath and cough productive of yellow sputum. Patient has a history of COPD. Work-up in the emergency room included a chest x-ray which showed no acute infiltrates, lab work was within normal limits, on examination, the patient was noted to be wheezing bilaterally. Patient was admitted for exacerbation of COPD and hypoxia, he was given IV Solu-Medrol and aggressive aerosol treatments, respiratory panel was obtained which was positive for RSV A. Patient improved during his hospital stay. On 02/20/2019, patient was seen and examined, he was felt to be in stable condition for discharge home: On examination he appeared in good health and spirits. Vital signs as documented. Skin warm and dry and without overt rashes. Neck without JVD. Lungs clear. Heart exam notable for regular rhythm, normal sounds and absence of murmurs, rubs or gallops. Abdomen unremarkable and without evidence of organomegaly, masses, or abdominal aortic enlargement. Extremities nonedematous. Neuro: Cranial nerves II through XII are grossly intact, no focal motor deficits were noted, sensation to light touch and pinprick intact. Psych: Patient is alert and oriented x3, he does not appear anxious or depressed On 02/20/2019, patient was discharged home in stable condition - Physical Exam Vitals/I&O's: Vital Signs Temp Pulse Resp BP Pulse Ox 98.7 F 87 20 H 132/70 H 95 02/20/19 14:57 02/20/19 14:57 02/20/19 14:57 02/20/19 14:57 02/20/19 14:57 Oxygen Flow Rate (L/min) [ 6 AMBULATION with Oxygen] Oxygen Flow Rate (L/min) [At 0 REST on Room Air] Oxygen Flow Rate (L/min) 4 Oxygen Delivery Method Nasal Cannula Weight: 77.7 kg Body Mass Index (BMI) 25.2 Discharge Activity: Return to Normal Activity Weight Bearing Status: Full weight bearing Home Medications: Medications to take at Discharge Aspirin [Aspirin, Baby] 81 mg PO DAILY@0800 01/18/17 Atorvastatin Calcium [Lipitor] 20 mg PO DAILY 01/18/17 Lisinopril/Hydrochlorothiazide [Zestoretic Tablet] 1 tab PO DAILY 01/18/17 Metoprolol Succinate [Toprol Xl] 50 mg PO DAILY 01/18/17 Nitroglycerin [Nitrostat] 0.4 mg SL PRN PRN 01/18/17 Pioglitazone HCl 15 mg PO DAILY 01/18/17 Tiotropium [place] [Spiriva] 18 mcg INHALATION DAILY 01/18/17 Albuterol Aerosols [Ventolin Aerosols] 2.5 mg INHALATION Q4H PRN PRN #30 vial.neb. 10/01/18 Nebulizer [Aeroneb Go Nebulizer] 1 ea MC Q4H PRN #1 ea 10/01/18 glimepiride 1 mg tablet 1 mg PO QAM 12/16/18 meloxicam 15 mg tablet 15 mg PO DAILY PRN 12/16/18 metFORMIN HCl [Glucophage] 500 mg PO DAILY 02/16/19 Prednisone 10 mg PO UD #30 tab 02/20/19 Following Prescrptions Were Given to Patient: Prednisone 10 mg PO UD #30 tab Prescription Printed Primary Care Physician: Kevin Mcdowell III, MD [Primary Care Provider] - Please follow up with your Primary Care Physician in: next week Disposition: Home Minutes spent on discharge:: 31 Patient Condition:: Stable Medical Necessity - Tobacco Use Smoking Status: Former smoker Meaningful Use Info Meaningful Use Diagnoses (Choose all that apply): None applicable Code Visit Inpatient E&M: 86979 Disch Hosp
== END 2019-02-20 16:08 | disposition home or self-care (01) | DRG 190 ==
LOC: ED 11:10 → MS3 13:34
PROVIDERS: Emergency Provider Emergency Medicine; Family Provider Family Medicine; PCP Family Medicine; Visit Provider Internal Medicine
DX: J44.1 Chronic obstructive pulmonary disease with (acute) exacerbation (principal); J96.21 Acute and chronic respiratory failure with hypoxia; Z99.81 Dependence on supplemental oxygen; J20.5 Acute bronchitis due to respiratory syncytial virus; J44.0 Chronic obstructive pulmonary disease with (acute) lower respiratory infection; J06.9 Acute upper respiratory infection, unspecified; B97.4 Respiratory syncytial virus as the cause of diseases classified elsewhere; I10 Essential (primary) hypertension; E11.65 Type 2 diabetes mellitus with hyperglycemia; T38.0X5A Adverse effect of glucocorticoids and synthetic analogues, initial encounter; Z95.5 Presence of coronary angioplasty implant and graft; I25.10 Atherosclerotic heart disease of native coronary artery without angina pectoris; E78.5 Hyperlipidemia, unspecified; Z87.891 Personal history of nicotine dependence; Z79.84 Long term (current) use of oral hypoglycemic drugs; I65.23 Occlusion and stenosis of bilateral carotid arteries; I73.9 Peripheral vascular disease, unspecified
CPT/HCPCS: 36415; 71045; 80048; 82962; 84484; 85025; 87633; 87804; 93005; 94640; 97162; 97166; 99251; 99285; J7040; A4216; G0463; J2405

== ENCOUNTER 2019-03-02 12:14 | Inpatient (IN) | payer MEDICARE, OTHER, SELFPAY ==
[2019-02-16 13:45] VITALS: BMI 25.2
[2019-03-02] VITALS (16 sets, daily range): BP systolic 88–139; BP diastolic 34–55; PULSE 66–87; RESP 14–24; TEMP 36.5–36.9; O2SAT 90–98; BMI 26.6; BMI 23.8; BMI 23.9
--- NOTE | 2019-03-02 12:30 | EKG12_ITS ---
Test Reason : SOB Blood Pressure : / mmHG Vent. Rate : 075 BPM Atrial Rate : 075 BPM P-R Int : 144 ms QRS Dur : 098 ms QT Int : 390 ms P-R-T Axes : 068 -60 064 degrees QTc Int : 435 ms Normal sinus rhythm Left anterior fascicular block Junctional ST depression, probably normal Abnormal ECG Confirmed by DEBBIE CHOWDHURY, KAL ([id number]), movie editor MARIA DEL ROSARIO PARADA ([id number]) on 03/04/2019 10:04:15 AM Referred By: Piero Nice Confirmed By:KAL LEWIS MD
--- NOTE | 2019-03-02 12:33 | ED.DCSUM_ITS ---
History of Present Illness Chief Complaint: Shortness of Breath Informant: Patient Onset: Weeks Context: Gradual Onset Current Severity: Moderate Maximum Severity: Moderate Narrative: Patient presents secondary to shortness of breath. Patient was admitted to the hospital February 16 through February 20 with a COPD exacerbation secondary to RSV virus. Patient states he felt a little bit better when he went home. He is currently on a prednisone taper taking 20 mg a day. He states shortly after returning home his symptoms seem to start worsening again. He has not been using his inhalers. He denies fever. Patient's O2 sat was in the 70s just moving from the wheelchair to the bed. He has on 5 L nasal cannula at this time where he normally requires 2 to 3 L. - Past Medical History (1) COPD (chronic obstructive pulmonary disease) Status: Chronic (2) Carotid stenosis, bilateral Status: Chronic (3) Coronary artery disease Status: Chronic (4) DM type 2 (diabetes mellitus, type 2) Status: Chronic (5) Dyslipidemia Status: Chronic (6) History of cardiac stents Status: Chronic (7) Hypertension Status: Chronic (8) Peripheral arterial disease Status: Chronic (9) Hx of appendectomy Status: Resolved Past Medical History - Allergies and Home Meds Allergies/Adverse Reactions: Allergies WORM MEDICATION Allergy (Uncoded 03/02/19 12:21) Hives Primary Care Physician: Kevin Mcdowell III, MD [Primary Care Provider] - Doctors: Dr. Ye Prior records reviewed: Yes Smoking Status: Former smoker - Family History Maternal Family History: Family History (Last Reviewed 02/16/19 @ 14:40 by Michele Farris DO) Other Family history unknown Family History: Reports: No pertinent history Review of Systems General: Denies: Chills, Fever Eyes: Denies: Visual changes - bilaterally ENT: Denies: Bilateral ear pain Cardiovascular: Denies: Chest pain Respiratory: Reports: Dyspnea, Cough, - - Chest congestion but unable to bring up any sputum Gastrointestinal: Denies: Abdominal pain, Vomiting, Diarrhea Musculoskeletal: Denies: Back pain, Swelling, Extremity Pain Skin: Denies: Rash Neurological: Denies: Headache Allergy: Denies: Uticaria Physical Exam Vital Signs/Narrative: Vital Signs Temp Pulse Resp BP Pulse Ox 03/02/19 12:30 94 03/02/19 12:15 97.9 F 87 21 H 92/40 L 98 Inital Vital Signs reviewed: Yes General: Cachectic Head: Normocephalic ENT: Moist mucous membranes Neck: Supple Cardiovascular: Regular rate, Regular rhythm Respiratory: - - Rhonchorous breath sounds bilateral bases. Abdomen: Soft, Nontender Extremities: Nontender Skin: Normal color Neurological: Alert, Oriented x3 Psychological: Normal affect Diagnostic/Tx/Re-eval Impressions Chest X-Ray 03/02/19 12:45 IMPRESSION: Chronic changes as above with no significant change from prior exam. Electronically Signed: Dell Rivera, DO at 13:07 EST , Service support , 03/02/19 12:40 CT Abd [Abdomen/Pelvis without Cont] [CT] Stat 03/02/19 12:45 Chest 1 View (Portable) [RAD] Stat Laboratory Results 03/02/19 03/02/19 03/02/19 12:40 12:40 12:40 WBC 18.4 H RBC 4.32 L Hgb 13.2 Hct 41.0 MCV 94.9 H MCH 30.6 MCHC 32.2 RDW Std Deviation 45.5 H RDW Coeff of Delia 12.9 Plt Count 222 MPV 11.5 Immature Gran % (Auto) 0.700 Neut % (Auto) 88.5 H Lymph % (Auto) 6.7 L [place] % (Auto) 3.9 Eos % (Auto) 0.0 Baso % (Auto) 0.2 Absolute Neuts (auto) 16.3 H Absolute Lymphs (auto) 1.24 Nucleated RBC % 0 Sodium 135 L Potassium 4.6 Chloride 91 L Carbon Dioxide 39.0 H Anion Gap 5 BUN 70 H Creatinine 1.54 H Estim Creat Clear Calc 36.98 Est GFR (MDRD) Af Amer 56 L Est GFR (MDRD) Non-Af 46 L BUN/Creatinine Ratio 45.5 H Glucose 264 H Lactic Acid 3.8 H* Calcium 9.3 - EKG Initial EKG Interpretation: Sinus Rhythm - Sinus at 75 with no acute ischemia. - Medical Decision Making Patient was given Mucinex and a DuoNeb treatment here. O2 sats are down to mid 90s on 5 L. Patient blood pressure is responding to IV fluid boluses. His BUN lactic acid are both elevated. Patient is given IV fluid boluses. Patient's white count is elevated to 18, however he has been on steroids. Chest x-ray does not show any acute infiltrate. Patient has no abdominal complaints. I do feel patient will require hospitalization for further respiratory care. After speaking with the hospitalist patient will be treated with a course of Levaquin, first dose given here in the ER. Patient systolic blood pressure has maintained over 100 after getting IV fluids. He will be admitted to [facility]. ED Disposition - Plan for ED Patient: Disposition: Acute Care Hospital [facility] Diagnosis: COPD exacerbation, Bronchitis Referrals: Kevin Mcdowell III, MD [Primary Care Provider] -
[2019-03-02] MEDS: 0.9% Normal Saline 1,000 ML 150 ML IV (12:38)
[2019-03-02] MEDS: Ipratropium/Albuterol Sulfate 3 ML AMPUL.NEB INHALATION ×4 (12:38→23:48)
[2019-03-02] MEDS: guaiFENesin 1,200 MG Tablet 1200 MG PO (12:44)
--- NOTE | 2019-03-02 12:45 | RAD_ITS ---
STUDY: X-RAY CHEST REASON FOR EXAM: Male, 83 years old. chest pain TECHNIQUE: Single AP portable view of the chest. COMPARISON: 16 February 2019 FINDINGS: Chronic basilar interstitial markings with no evidence of new focal airspace disease in similar exam compared to prior. There is no demonstrated pleural abnormality. Normal size heart. Normal mediastinum and dionne. Normal visualized pulmonary arteries. There is atherosclerotic calcification of the aortic arch with tortuosity. Normal visualized thoracic spine. Normal visualized ribs, clavicles, and shoulders. There is no demonstrated abnormality of the visualized soft tissue structures of the upper abdomen. RAD/Chest 1 View (Portable) IMPRESSION: Chronic changes as above with no significant change from prior exam. Electronically Signed: Dell Rivera DO at 13:07 EST , Service support ,
[2019-03-02 12:52] LABS: Absolute Lymphocyte Count 1.24 X10^3/uL (0.83-4.51); Absolute Neutrophil Count 16.3 X10^3/uL (2.0-7.7); Basophil# 0.03 X10^3/uL; Basophil% 0.2 % (0-1); Hemoglobin 13.2 g/dL (13.0-16.5); Lymphocyte # 1.24 X10^3/ul (4.0); Lymphocyte % 6.7 % (19-41); Mean Corp Hgb Conc 32.2 g/dL (32-36); Mean Corpuscular Hgb 30.6 pg (27.0-32.0); Mean Corpuscular Volume 94.9 fL (80-94); Mean Platelet Vol. 11.5 fl (6.2-12.0); Monocyte# 0.72 X10^3/uL; Monocyte% 3.9 % (0-10); NRBC Flagged by Analyzer 0 % (0-5); Neutrophil # 16.26 X10^3/uL (2.7-7.7); Neutrophil % 88.5 % (47-70); Platelet Count 222 K/mm3 (150-450); RBC Distribution Width CV 12.9 % (11.6-14.6); RBC Distribution Width SD 45.5 fl (35.1-43.9); Red Blood Count 4.32 M/mm3 (4.6-6.2); White Blood Count 18.4 K/mm3 (4.4-11.0)
[2019-03-02 13:20] LABS: Anion Gap 5 (5-15); BUN 70 mg/dL (7-18); BUN/Creat Ratio 45.5 RATIO (10-20); Calcium,Total 9.3 mg/dL (8.5-10.1); Chloride 91 mmol/L (98-107); Creatinine, Serum 1.54 mg/dL (0.70-1.30); EST Glomerular Filtration Rate 46 mL/min (>60); Est Glom Filt Rate - Afr Amer 56 mL/min (>60); Estimated Creatinine Clearance 36.98 ml/min; Glucose 264 mg/dL (74-106); Potassium 4.6 mmol/L (3.5-5.1); Sodium Level 135 mmol/L (136-145)
[2019-03-02 13:26] LABS: Lactic Acid 3.8 mmol/L (0.4-1.9)
[2019-03-02] MEDS: 0.9% Normal Saline 1,000 ML 999 ML IV (13:34)
[2019-03-02] MEDS: levoFLOXacin 750 MG Tablet PO (14:17)
--- NOTE | 2019-03-02 15:20 | PCM.HP.STD ---
History of Present Illness Date of Admission: 03/02/19 Chief Complaint: Shortness of breath The patient is a 83 year old M with a PMH as below who presents from home with shortness of breath and nonproductive cough that has worsened over the last several days. He was admitted recently between February 16 and February 20 for COPD exacerbation. At that time he tested positive for RSV. He presents today with shortness of breath while on his 2 to 3 L. He did drop into the 70s when he was transitioning from the wheelchair to the bed. Though he did recover with oxygen via nasal cannula. He was found to have a white count of 18 in the ER and unsure if this is secondary to an infectious process or the fact that he had been discharged on prednisone. He still on the prednisone, however he also had a lactic acid of 3.8 and he did have transient hypotension that responded to fluids. Is unsure whether or not the lactic acid is related to a septic process or his metformin and he is just dehydrated. He denies any chest pain, lightheadedness, dizziness. He has not been using this inhalers either but also has not had a fever at home. Past Medical History Past Medical History (Chronic Problems): Chronic Problems (Last Reviewed 02/16/19 @ 14:40 by Michele Farris DO) Chronic respiratory failure with hypoxia (Chronic) Carotid stenosis, bilateral (Chronic) Peripheral arterial disease (Chronic) Coronary artery disease (Chronic) History of cardiac stents (Chronic) Dyslipidemia (Chronic) DM type 2 (diabetes mellitus, type 2) (Chronic) Hypertension (Chronic) COPD (chronic obstructive pulmonary disease) (Chronic) Medical History: Medical History (Last Reviewed 02/16/19 @ 14:40 by Michele Farris DO) History of pneumonia (Acute) Z87.01 History of bronchitis (Acute) Z87.09 COPD exacerbation (Acute) J44.1 Carotid stenosis, bilateral (Chronic) I65.23 Peripheral arterial disease (Chronic) Coronary artery disease (Chronic) History of cardiac stents (Chronic) Dyslipidemia (Chronic) E78.5 DM type 2 (diabetes mellitus, type 2) (Chronic) E11.9 Hypertension (Chronic) I10 COPD (chronic obstructive pulmonary disease) (Chronic) J44.9 Allergies WORM MEDICATION Allergy (Uncoded 03/02/19 15:00) Hives 50 years ago. kids had got worms so the whole family needed to be treated for it. Home Medications: Ambulatory Orders Medication Instructions Recorded Aspirin [Aspirin, Baby] 81 mg PO DAILY@0800 01/18/17 Atorvastatin Calcium [Lipitor] 20 mg PO DAILY 01/18/17 Lisinopril/Hydrochlorothiazide 1 tab PO DAILY 01/18/17 [Zestoretic Tablet] Metoprolol Succinate [Toprol Xl] 50 mg PO DAILY 01/18/17 Nitroglycerin [Nitrostat] 0.4 mg SL PRN PRN 01/18/17 Pioglitazone HCl 15 mg PO DAILY 01/18/17 Tiotropium [place] [Spiriva] 18 mcg INHALATION DAILY 01/18/17 Albuterol Aerosols [Ventolin 2.5 mg INHALATION Q4H PRN PRN #30 10/01/18 Aerosols] vial.neb. Nebulizer [Aeroneb Go Nebulizer] 1 ea MC Q4H PRN #1 ea 10/01/18 glimepiride 1 mg tablet 1 mg PO QAM 12/16/18 meloxicam 15 mg tablet 15 mg PO DAILY PRN 12/16/18 metFORMIN HCl [Glucophage] 500 mg PO DAILY 02/16/19 Surgical History: Surgical History (Last Reviewed 02/16/19 @ 14:40 by Michele Farris DO) Hx of appendectomy (Resolved) Z90.49 Surgical History: - - Carotid endarterectomy, bilateral femoral bypass Smoking Status: Former smoker Tobacco Use: Cigarettes Alcohol: None Drugs: None - *Family History Maternal Family History: Family History (Last Reviewed 02/16/19 @ 14:40 by Michele Farris DO) Other Family history unknown History Items: No pertinent history Review of Systems Constitutional: Denies: Chills, Fever, Weight Change HEENT: Denies: Head Aches, Sinus Congestion, Sinus Drainage Cardiovascular: Denies: Chest Pain, Palpitations Respiratory: Reports: Cough, Shortness of Breath. Denies: Shortness of breath at rest, Sputum production Gastrointestinal: Denies: Abdominal Pain, Nausea, Vomiting Genitourinary: Denies: Dysuria Musculoskeletal: Denies: Joint Pain, Joint Tenderness Skin: Denies: Rash, Wounds Neurological: Denies: Numbness, Tingling, Focal weakness Psychiatric: Denies: Anxiety, Depression Hematologic/ Lymphatic: Denies: Easy Bruising, Easy Bleeding VTE Information - Inpt Only VTE Present on Admission: No Patient Problems: Active and Suspected Problems (Last Reviewed 02/16/19 @ 14:40 by Michele Farris DO) Bronchitis (Acute) COPD exacerbation (Acute) - Physical Exam Vitals/I&O's: Vital Signs Temp Pulse Resp BP Pulse Ox 97.7 F L 66 17 114/51 L 97 03/02/19 13:49 03/02/19 14:18 03/02/19 14:18 03/02/19 14:32 03/02/19 14:18 Oxygen Flow Rate (L/min) 4 Oxygen Delivery Method Room Air Weight: 161 lb 9.581 oz Body Mass Index (BMI) 23.8 Intake and Output for Last 24 Hours 02/28/19 03/01/19 03/02/19 23:59 23:59 23:59 Intake Total 522.5 / 522.5 Balance 522.5 / 522.5 General: Alert, Oriented x3, Cooperative, No apparent distress HEENT: Atraumatic, PERRLA, EOMI, Normocephalic Oral: Moist Mucosa Neck: Supple, No JVD Lungs: Diminished, Rhonchi, Short of Breath, - - Poor air movement Cardiovascular: Regular rate, Regular Rhythm, Normal S1, Normal S2, No murmurs Abdomen: Soft, Non Tender, Non-Distended, No Hepato-splenomegaly Extremities: No edema, Capillary Refill Less than 3 Seconds Skin: No rashes, No breakdown Neurological: Neuro grossly intact, Sensory exam intact to light touch and pain Psych/Mental Status: Normal Affect, Appropriate Laboratory Results 03/02/19 12:40: WBC 18.4 H, RBC 4.32 L, Hgb 13.2, Hct 41.0, MCV 94.9 H, MCH 30.6, MCHC 32.2, RDW Std Deviation 45.5 H, RDW Coeff of Delia 12.9, Plt Count 222, MPV 11.5, Immature Gran % (Auto) 0.700, Neut % (Auto) 88.5 H, Lymph % (Auto) 6.7 L, [place] % (Auto) 3.9, Eos % (Auto) 0.0, Baso % (Auto) 0.2, Absolute Neuts (auto) 16.3 H, Absolute Lymphs (auto) 1.24, Nucleated RBC % 0 03/02/19 12:40: Sodium 135 L, Potassium 4.6, Chloride 91 L, Carbon Dioxide 39.0 H, Anion Gap 5, BUN 70 H, Creatinine 1.54 H, Estim Creat Clear Calc 36.98, Est GFR (MDRD) Af Amer 56 L, Est GFR (MDRD) Non-Af 46 L, BUN/Creatinine Ratio 45.5 H, Glucose 264 H, Calcium 9.3 03/02/19 12:40: Lactic Acid 3.8 H* Current Medications Acetaminophen (Tylenol) 650 mg PO Q6H PRN PRN PRN Reason: Pain Score 1-3/Temp > 100.7 F Albuterol/Ipratropium (Duoneb) 3 ml INHALATION Q4HWA.RT [facility] Dextrose (D50w Syringe) 0 gm IV X1 PRN; Protocol PRN Reason: Hypoglycemia Glucagon () 1 mg IM .X1 PRN PRN Reason: Hypoglycemia Heparin Sodium (Porcine) (Heparin Na) 5,000 unit SC Q12 [facility] Sodium Chloride () 1,000 mls @ 100 mls/hr IV .Q10H [facility] Levofloxacin (Levaquin Iv) 750 mg in 150 mls @ 100 mls/hr IV Q48 [facility] Sodium Chloride () 250 mls @ 15 mls/hr IV .[id number] PRN PRN Reason: Saline Flush Sodium Chloride () 250 mls @ 15 mls/hr IV .[id number] PRN PRN Reason: Additional IVPB Infusion Insulin Human Lispro (Humalog Kwikpen (Bkc)) 0 unit SC ACHS [facility]; Protocol Ondansetron HCl (Zofran) 4 mg IV Q8H PRN PRN PRN Reason: NAUSEA/VOMITING Sodium Chloride () 10 - 40 ml IV UD PRN PRN Reason: SALINE FLUSH Assessment/Plan All Active Problems (Last Reviewed 02/16/19 @ 14:40 by Michele Farris DO) Hypoxia (Acute) Bronchitis (Acute) History of pneumonia (Acute) History of bronchitis (Acute) Hx of appendectomy (Resolved) COPD exacerbation (Acute) 1. COPD exacerbation causing acute hypoxic respiratory failure -X-ray does not show consolidation however he is having worsening symptoms therefore will add Levaquin -Continue with Solu-Medrol as well as DuoNebs, he is on home O2 of 2 to 3 L though he did need to be bumped up to 5 today because his sats dropped into the 70s when transitioning from his chair to his bed -Incentive spirometry, may need chest physiotherapy -Recent test positive for RSV -Continue with IV fluids, not likely to be septic I believe his lactic acid is secondary to his metformin use 2. HTN/HLD/CAD and PAD -We will hold his blood pressure medications for now given his hypotension in the ER, can likely restart tomorrow -Continue with Lipitor as well as aspirin 3. DM 2 -We will hold his home diabetic medications -Continue with sliding scale insulin DVT: Heparin Code Visit Inpatient E&M: 45514 Init Hosp L3
[2019-03-02] MEDS: 0.9% Normal Saline 1,000 ML 100 ML IV (15:52)
[2019-03-02] MEDS: 0.9% Saline Lock 10 ML Syringe IV (15:52)
[2019-03-02 16:36] LABS: Bedside Glucose 260 mg/dL (70-110)
[2019-03-02 16:48] LABS: Reflex Lactate? Y
[2019-03-02] MEDS: Insulin Lispro 100 UNIT/ML INSULN.PEN SC ×2 (17:19→21:58)
[2019-03-02 17:37] LABS: Lactic Acid 2.2 mmol/L (0.4-1.9)
--- NOTE | 2019-03-02 20:12 | NURSING ---
Lab called to report that sputum specimen that was sent was inadequate, it was mostly saliva. Marge POWELL aware of need to recollect.
[2019-03-02] MEDS: Heparin Injection (Vial) 5,000 UNIT/ML VIAL 5000 UNIT SC (22:02)
[2019-03-02 23:06] LABS: Bedside Glucose 176 mg/dL (70-110)
[2019-03-02 23:41] LABS: Lactic Acid 2.4 mmol/L (0.4-1.9)
[2019-03-03] VITALS (13 sets, daily range): BP systolic 98–122; BP diastolic 40–54; PULSE 83–98; RESP 18–22; TEMP 36.6–37.3; O2SAT 94–97
--- NOTE | 2019-03-03 00:34 | NURSING ---
spoke with lab regarding lactic acid reflex orders for pt because dr king wants the lactic after a night of fluids with morning labs. mickey in lab said she would see if tech could change time on the reflex order
[2019-03-03] MEDS: 0.9% Normal Saline 1,000 ML 125 ML IV ×2 (01:47→08:38)
[2019-03-03 03:07] LABS: Reflex Lactate? Y
[2019-03-03 03:38] LABS: Absolute Lymphocyte Count 0.14 X10^3/uL (0.83-4.51); Absolute Neutrophil Count 11.1 X10^3/uL (2.0-7.7); Basophil# 0.01 X10^3/uL; Basophil% 0.1 % (0-1); Hematocrit 33.4 % (40-54); Hemoglobin 10.6 g/dL (13.0-16.5); Lymphocyte # 0.14 X10^3/ul (4.0); Lymphocyte % 1.2 % (19-41); Mean Corp Hgb Conc 31.7 g/dL (32-36); Mean Corpuscular Hgb 30.5 pg (27.0-32.0); Mean Platelet Vol. 11.3 fl (6.2-12.0); Monocyte# 0.07 X10^3/uL; Monocyte% 0.6 % (0-10); NRBC Flagged by Analyzer 0 % (0-5); Neutrophil # 11.07 X10^3/uL (2.7-7.7); Neutrophil % 97.4 % (47-70); POSITIVE DIFFERENTIAL YES; Platelet Count 175 K/mm3 (150-450); RBC Distribution Width CV 12.9 % (11.6-14.6); RBC Distribution Width SD 45.6 fl (35.1-43.9); Red Blood Count 3.48 M/mm3 (4.6-6.2); White Blood Count 11.4 K/mm3 (4.4-11.0)
[2019-03-03 03:40] LABS: Differential Indicated SCAN CRITERIA MET
[2019-03-03 03:57] LABS: Anion Gap 7 (5-15); BUN 62 mg/dL (7-18); BUN/Creat Ratio 45.6 RATIO (10-20); Calcium,Total 8.3 mg/dL (8.5-10.1); Chloride 98 mmol/L (98-107); Creatinine, Serum 1.36 mg/dL (0.70-1.30); EST Glomerular Filtration Rate 53 mL/min (>60); Est Glom Filt Rate - Afr Amer 65 mL/min (>60); Estimated Creatinine Clearance 41.88 ml/min; Glucose 311 mg/dL (74-106); Potassium 4.7 mmol/L (3.5-5.1); Sodium Level 135 mmol/L (136-145)
[2019-03-03 05:42] LABS: Differential Comment SCANNED
[2019-03-03] MEDS: 0.9% Saline Lock 10 ML Syringe IV ×3 (06:17→21:42)
[2019-03-03] MEDS: Insulin Lispro 100 UNIT/ML INSULN.PEN SC ×4 (06:27→22:23)
[2019-03-03 06:56] LABS: Bedside Glucose 327 mg/dL (70-110)
[2019-03-03] MEDS: Ipratropium/Albuterol Sulfate 3 ML AMPUL.NEB INHALATION ×4 (07:11→19:30)
[2019-03-03] MEDS: Heparin Injection (Vial) 5,000 UNIT/ML VIAL 5000 UNIT SC ×2 (09:39→21:40)
[2019-03-03 11:11] LABS: Bedside Glucose 400 mg/dL (70-110)
--- NOTE | 2019-03-03 13:20 | CASEMGMT ---
Addendum entered by Reagan Elizalde 03/03/19 15:28: F/U appt made with [facility] for 03/13/2019 @ 0945. Addendum entered by Reagan Elizalde 03/03/19 14:33: Pt does not see Dr. Carlson for pulmonology f/u since 2011. Pt is currently seeing Dr. Ye. Has f/u appt 07/01/19. Call to office to set up earlier appt. Message left requesting call back for appt. Ciro STATON RN ACM Original Note: RN CM Readmission Note Previous Admission: 02/16/19-02/20/2019 Diagnosis: COPD; RSV DC Disposition: HOME Current Admission Presentation: COPD Intro role of CM and purpose of RN CM assessment to patient. Pt is awake, alert and able to have conversation with CM. Pt states he called physician office after RNCM recommended f/u visit. Pt states ordered cough syrup, but no f/u appt made at that time. Pt states he felt worse over weekend, so came to ER. -RN CM asked pt if he would have transportation to f/u. Pt states he usually drives, but sons can if they are not working. PCP: Dr. Kevin Mcdowell III. F/U appt made for Sunday, 03.10.2019 @ 1040. Copy given to paper, reviewed and recommended he speak with sons ahead of time to assure transportation. Pt is agreeable. Specialists: Dr. Carlson- message left requesting call back for f/u appt. Preferred Pharmacy: [facility] Patient DC goals: Home DC PLAN: anticipate home. Pt has home oxygen. Ciro STATON RN ACM
--- NOTE | 2019-03-03 14:10 | CASEMGMT ---
Social Work Note SW met with pt to discuss Palliative Care. SW introduced self and role at [facility]. Pt is alert and orientated x3. Pt was receptive to taking Palliative Care brochure. Pt states he would like to review information before making a decision. SW updated pt that if he would like a referral to be made to Palliative Care then a referral can be made while he is at [facility]. Pt states understanding. Kinjal Humphreys SOLAR PANEL INSTALLER, [employer]BE BENDER
--- NOTE | 2019-03-03 15:40 | PCM.PN.HOSP ---
Patient Problems: Active and Suspected Problems (Last Reviewed 02/16/19 @ 14:40 by Michele Farris DO) Bronchitis (Acute) COPD exacerbation (Acute) Reason for Visit: COPD exacerbation Objective: The patient was admitted with progressive worsening of shortness of breath and dry cough. Recently was discharged on February 20 for similar COPD exacerbation. During previous admission, respiratory panel positive for RSV. Lactic acid was 2.4, improved to 2.2. Patient on 4 L of oxygen. On chronic 2 L of home oxygen Vitals/I&O's: Vital Signs Temp Pulse Resp BP Pulse Ox 99 F 92 18 115/44 L 95 03/03/19 14:32 03/03/19 14:32 03/03/19 14:32 03/03/19 14:32 03/03/19 14:32 Oxygen Flow Rate (L/min) 4 Oxygen Delivery Method Nasal Cannula Weight: 161 lb 9.581 oz Body Mass Index (BMI) 23.8 Intake and Output for Last 24 Hours 03/01/19 03/02/19 03/03/19 23:59 23:59 23:59 Intake Total 2840.83 / 2990.83 1794.00 / 1794.00 Output Total 1000 / 1000 Balance 2840.83 / 2940.83 794.00 / 794.00 General: Alert, Oriented x3, Cooperative HEENT: Atraumatic, PERRLA, EOMI, Normocephalic Neck: Supple, No JVD, Negative Carotid Bruits Lungs: No rhonchi, No wheeze, No rales, Diminished - Air entry severely diminished., Rhonchi, Short of Breath Cardiovascular: Regular rate, Regular Rhythm, Normal S1, Normal S2, No murmurs Abdomen: Bowel Sounds Present, Soft, Non Tender, Non-Distended Extremities: Capillary Refill Less than 3 Seconds, Edema Skin: No rashes, No breakdown Musculoskeletal: No Tenderness to Palpation of Joints or Extremities, Arthritic Changes Neurological: Cranial nerves II-XII grossly intact, Deep Tendon Reflexes 2+/4 and Symmetrical, Neuro grossly intact Psych/Mental Status: Normal Affect, Appropriate Microbiology Past 72 Hours 03/03/19 Unknown Sputum, Expectorated/Coughed Gram Stain - Final Laboratory Results 03/02/19 16:16: POC Glucose 260 H 03/02/19 16:59: Lactic Acid 2.2 H* 03/02/19 21:53: POC Glucose 176 H 03/02/19 23:05: Lactic Acid 2.4 H* 03/03/19 03:22: WBC 11.4 H, RBC 3.48 L, Hgb 10.6 L, Hct 33.4 L, MCV 96.0 H, MCH 30.5, MCHC 31.7 L, RDW Std Deviation 45.6 H, RDW Coeff of Delia 12.9, Plt Count 175, MPV 11.3, Immature Gran % (Auto) 0.700, Neut % (Auto) 97.4 H, Lymph % (Auto) 1.2 L, [place] % (Auto) 0.6, Eos % (Auto) 0.0, Baso % (Auto) 0.1, Absolute Neuts (auto) 11.1 H, Absolute Lymphs (auto) 0.14 L, Nucleated RBC % 0, Differential Comment SCANNED 03/03/19 03:22: Sodium 135 L, Potassium 4.7, Chloride 98, Carbon Dioxide 30.0, Anion Gap 7, BUN 62 H, Creatinine 1.36 H, Estim Creat Clear Calc 41.88, Est GFR (MDRD) Af Amer 65, Est GFR (MDRD) Non-Af 53 L, BUN/Creatinine Ratio 45.6 H, Glucose 311 H, Calcium 8.3 L 03/03/19 03:22: Lactic Acid 2.0 03/03/19 06:26: POC Glucose 327 H 03/03/19 10:48: POC Glucose 400 H Current Medications Acetaminophen (Tylenol) 650 mg PO Q6H PRN PRN PRN Reason: Pain Score 1-3/Temp > 100.7 F Albuterol/Ipratropium (Duoneb) 3 ml INHALATION Q4HWA.RT [facility] Last Admin: 03/03/19 10:49 Dose: 3 ml Documented by: Dextrose (D50w Syringe) 0 gm IV X1 PRN; Protocol PRN Reason: Hypoglycemia Glucagon () 1 mg IM .X1 PRN PRN Reason: Hypoglycemia Heparin Sodium (Porcine) (Heparin Na) 5,000 unit SC Q12 [facility] Last Admin: 03/03/19 09:39 Dose: 5,000 unit Documented by: Sodium Chloride () 1,000 mls @ 125 mls/hr IV .Q8H [facility] Last Admin: 03/03/19 08:38 Dose: 125 mls/hr Documented by: Levofloxacin (Levaquin Iv) 750 mg in 150 mls @ 100 mls/hr IV Q48 [facility] Sodium Chloride () 250 mls @ 15 mls/hr IV .[id number] PRN PRN Reason: Saline Flush Sodium Chloride () 250 mls @ 15 mls/hr IV .[id number] PRN PRN Reason: Additional IVPB Infusion Insulin Human Lispro (Humalog Kwikpen (Bkc)) 0 unit SC ACHS [facility]; Protocol Last Admin: 03/03/19 10:50 Dose: 10 units Documented by: Methylprednisolone (Solu-Medrol) 40 mg IV Q8 [facility] Last Admin: 03/03/19 14:37 Dose: 40 mg Documented by: Nutritional Formula (Lactose Free) (Glucerna Shake) 120 ml PO TIDCM [facility] Ondansetron HCl (Zofran) 4 mg IV Q8H PRN PRN PRN Reason: NAUSEA/VOMITING Sodium Chloride () 10 - 40 ml IV UD PRN PRN Reason: SALINE FLUSH Last Admin: 03/03/19 14:37 Dose: 10 ml Documented by: STROKE Vital Signs/Narrative: Vital Signs Temp Pulse Resp BP Pulse Ox 03/03/19 14:32 99 F 92 18 115/44 L 95 Medical Necessity - Tobacco Use Smoking Status: Former smoker Tobacco Use: Cigarettes Assessment/Plan All Active Problems (Last Reviewed 02/16/19 @ 14:40 by Michele Farris DO) Hypoxia (Acute) Bronchitis (Acute) History of pneumonia (Acute) History of bronchitis (Acute) Hx of appendectomy (Resolved) COPD exacerbation (Acute) 1. Acute on chronic hypoxic and hypercarbic respiratory failure secondary to COPD exacerbation: Patient is being admitted on MedSurg floor. Currently patient is on 4 L of oxygen. Recent respiratory panel was positive RSV. Chest x-ray did not show consolidation but Levaquin was added for progressive worsening of symptoms and recent admission. Sputum culture is pending. Discontinue IV fluid as patient lactic acid returned to 2.0. Continue-Incentive spirometry, and chest physiotherapy 2. Hypertension: Blood pressure is normotensive. 3. Coronary artery disease and peripheral artery disease: Home medication continued 4. Dyslipidemia: 5. DM 2 with hyperglycemia secondary to Solu-Medrol: Hold metformin and Actos secondary to lactic acidosis. Glimepiride resumed with higher dose 2 mg daily. Continue Accu-Cheks and cover with Humalog sliding scale and Lantus. DVT: Heparin Code Visit Inpatient E&M: 83775 Subs Hosp L3
[2019-03-03] MEDS: Glucerna Shake 120 ML LIQUID PO (16:14)
[2019-03-03 16:51] LABS: Bedside Glucose 319 mg/dL (70-110)
[2019-03-03] MEDS: Acetaminophen 325 MG Tablet 650 MG PO (20:06)
[2019-03-03 21:36] LABS: Bedside Glucose 495 mg/dL (70-110)
[2019-03-03] MEDS: Atorvastatin Calcium 20 MG Tablet PO (21:40)
[2019-03-03 22:23] LABS: Glucose 498 mg/dL (74-106)
[2019-03-04] VITALS (10 sets, daily range): BP systolic 117–133; BP diastolic 49–78; PULSE 61–113; RESP 18–20; TEMP 36.6–37.1; O2SAT 93–95
[2019-03-04] MEDS: 0.9% Saline Lock 10 ML Syringe IV ×4 (05:41→22:01)
[2019-03-04] MEDS: Insulin Lispro 100 UNIT/ML INSULN.PEN SC ×4 (06:32→22:07)
[2019-03-04 06:55] LABS: Bedside Glucose 357 mg/dL (70-110)
[2019-03-04] MEDS: Ipratropium/Albuterol Sulfate 3 ML AMPUL.NEB INHALATION ×4 (07:26→19:03)
[2019-03-04] MEDS: Heparin Injection (Vial) 5,000 UNIT/ML VIAL 5000 UNIT SC (09:38)
[2019-03-04] MEDS: Glimepiride 2 MG Tablet PO (09:38)
[2019-03-04] MEDS: Aspirin 81 MG TAB.CHEW PO (09:38)
[2019-03-04] MEDS: Glucerna Shake 120 ML LIQUID PO (09:38)
[2019-03-04] MEDS: levoFLOXacin IV 750 MG/150 ML BAG 100 MG IV (09:39)
--- NOTE | 2019-03-04 10:30 | PCM.PN.HOSP ---
Patient Problems: Active and Suspected Problems (Last Reviewed 02/16/19 @ 14:40 by Michele Farris DO) Bronchitis (Acute) COPD exacerbation (Acute) Reason for Visit: COPD exacerbation Objective: Patient is still has shortness of breath even at rest along with cough mainly productive. Acute on chronic hypoxic and hypercarbic respiratory failure Vitals/I&O's: Vital Signs Temp Pulse Resp BP Pulse Ox 97.8 F 96 18 129/51 H 93 03/04/19 09:30 03/04/19 09:30 03/04/19 09:30 03/04/19 09:30 03/04/19 09:30 Oxygen Flow Rate (L/min) 4 Oxygen Delivery Method Nasal Cannula Weight: 161 lb 9.581 oz Body Mass Index (BMI) 23.8 Intake and Output for Last 24 Hours 03/02/19 03/03/19 03/04/19 23:59 23:59 23:59 Intake Total 2840.83 / 2990.83 3291.92 / 3466.92 225 / 225 Output Total 1800 / 2850 2300 / 2300 Balance 2840.83 / 2940.83 1491.92 / 616.92 -2074 / -2074 General: Alert, Oriented x3, Cooperative HEENT: Atraumatic, PERRLA, EOMI, Normocephalic Oral: No Gingival or Mucosal Lesions/ Ulcerations Neck: Supple, No JVD, Negative Carotid Bruits Lungs: Diminished - Air entry diminished in all lung valdez., Rhonchi, Short of Breath, Using Accessory Muscles Cardiovascular: Regular rate, Regular Rhythm, Normal S1, Normal S2, No murmurs Abdomen: Bowel Sounds Present, Soft, Non Tender, Non-Distended Extremities: No edema, Capillary Refill Less than 3 Seconds Skin: No rashes, No breakdown Musculoskeletal: No Tenderness to Palpation of Joints or Extremities, Arthritic Changes Neurological: Cranial nerves II-XII grossly intact, Deep Tendon Reflexes 2+/4 and Symmetrical, Neuro grossly intact Psych/Mental Status: Normal Affect, Appropriate Microbiology Past 72 Hours 03/02/19 13:04 Blood Culture (Wb) - Anticubital Right Blood Culture - Preliminary No growth in 48 hours. 03/02/19 12:40 Blood Culture (Wb) - Anticubital Right Blood Culture - Preliminary No growth in 48 hours. 03/03/19 Unknown Sputum, Expectorated/Coughed Gram Stain - Final Laboratory Results 03/03/19 10:48: POC Glucose 400 H 03/03/19 16:05: POC Glucose 319 H 03/03/19 21:30: POC Glucose 495 H* 03/03/19 21:56: Glucose 498 H* 03/04/19 06:31: POC Glucose 357 H Current Medications Acetaminophen (Tylenol) 650 mg PO Q6H PRN PRN PRN Reason: Pain Score 1-3/Temp > 100.7 F Last Admin: 03/03/19 20:06 Dose: 650 mg Documented by: Albuterol/Ipratropium (Duoneb) 3 ml INHALATION Q4HWA.RT [facility] Last Admin: 03/04/19 07:26 Dose: 3 ml Documented by: Aspirin (Aspirin, Baby) 81 mg PO DAILY@0800 [facility] Last Admin: 03/04/19 09:38 Dose: 81 mg Documented by: Atorvastatin Calcium (Lipitor) 20 mg PO QHS [facility] Last Admin: 03/03/19 21:40 Dose: 20 mg Documented by: Dextrose (D50w Syringe) 0 gm IV X1 PRN; Protocol PRN Reason: Hypoglycemia Glimepiride (Amaryl) 2 mg PO DAILY@0800 [facility] Last Admin: 03/04/19 09:38 Dose: 2 mg Documented by: Glucagon () 1 mg IM .X1 PRN PRN Reason: Hypoglycemia Heparin Sodium (Porcine) (Heparin Na) 5,000 unit SC Q12 [facility] Last Admin: 03/04/19 09:38 Dose: 5,000 unit Documented by: Levofloxacin (Levaquin Iv) 750 mg in 150 mls @ 100 mls/hr IV Q48 [facility] Last Admin: 03/04/19 09:39 Dose: 100 mls/hr Documented by: Sodium Chloride () 250 mls @ 15 mls/hr IV .[id number] PRN PRN Reason: Saline Flush Sodium Chloride () 250 mls @ 15 mls/hr IV .[id number] PRN PRN Reason: Additional IVPB Infusion Insulin Glargine (Lantus (Bkc)) 18 units SC BID [facility] Last Admin: 03/04/19 09:39 Dose: 18 units Documented by: Insulin Human Lispro (Humalog Kwikpen (Bkc)) 0 unit SC ACHS [facility]; Protocol Last Admin: 03/04/19 06:32 Dose: 8 units Documented by: Insulin Human Lispro (Humalog Kwikpen (Bkc)) 10 unit SC TIDAC [facility] Methylprednisolone (Solu-Medrol) 40 mg IV Q8 [facility] Last Admin: 03/04/19 05:41 Dose: 40 mg Documented by: Metoprolol Succinate (Toprol Xl (Beta Estevan)) 50 mg PO DAILY [facility] Last Admin: 03/04/19 09:38 Dose: Not Given Documented by: Nitroglycerin (Nitrostat) 0.4 mg SUBLINGUAL Q5M PRN PRN Reason: ANGINA Nutritional Formula (Lactose Free) (Glucerna Shake) 120 ml PO TIDCM [facility] Last Admin: 03/04/19 09:38 Dose: 120 ml Documented by: Ondansetron HCl (Zofran) 4 mg IV Q8H PRN PRN PRN Reason: NAUSEA/VOMITING Sodium Chloride () 10 - 40 ml IV UD PRN PRN Reason: SALINE FLUSH Last Admin: 03/04/19 09:39 Dose: 10 ml Documented by: STROKE Vital Signs/Narrative: Vital Signs Temp Pulse Resp BP Pulse Ox 03/04/19 09:30 97.8 F 96 18 129/51 H 93 03/04/19 07:20 89 18 95 Medical Necessity - Tobacco Use Smoking Status: Former smoker Tobacco Use: Cigarettes Assessment/Plan All Active Problems (Last Reviewed 02/16/19 @ 14:40 by Michele Farris DO) Hypoxia (Acute) Bronchitis (Acute) History of pneumonia (Acute) History of bronchitis (Acute) Hx of appendectomy (Resolved) COPD exacerbation (Acute) 1. Acute on chronic hypoxic and hypercarbic respiratory failure secondary to COPD exacerbation: Patient is being admitted on MedSurg floor. Currently patient is on 4 L of oxygen. Recent respiratory panel was positive RSV. Chest x-ray did not show consolidation but Levaquin was added for progressive worsening of symptoms and recent admission. Sputum culture is pending. Discontinue IV fluid as patient lactic acid returned to 2.0. Continue-Incentive spirometry, and chest physiotherapy 03/04/2018: Patient is more short of breath and had respiratory distress. ABG and BiPAP ordered. On Mucinex, incentive spirometry and chest physiotherapy. 2. Hypertension: Blood pressure is normotensive. Blood pressure is controlled 3. Coronary artery disease and peripheral artery disease: Home medication continued 4. Dyslipidemia: 5. DM 2 with hyperglycemia secondary to Solu-Medrol: Hold metformin and Actos secondary to lactic acidosis. Glimepiride resumed with higher dose 2 mg daily. Continue Accu-Cheks and cover with Humalog sliding scale and Lantus. 03/04/2018: Hyperglycemia secondary to Solu-Medrol: Lantus insulin increased. Scheduled lispro insulin 3 times daily before meal along with a coverage scale DVT: Heparin Code Visit Inpatient E&M: 94346 Subs Hosp L3
[2019-03-04] MEDS: guaiFENesin 1,200 MG Tablet 1200 MG PO ×2 (10:45→22:04)
[2019-03-04 11:11] LABS: Bedside Glucose 409 mg/dL (70-110)
[2019-03-04 11:20] LABS: Allen Test POS; Base Excess 13 mmol/L (-2 to +2); Bicarbonate 36.4 mmol/L (22-26); Blood Gas Specimen Type ART; O2 Delivery Device Nasal Can; PO2 67 mmHG (75-100); SITE L Radial; SO2 94 % (95-99); Time Given 1115; Total Carbon Dioxide 38 mmol/L; pCO2 50.1 mmHg (35-45); pH 7.47 (7.35-7.45)
--- NOTE | 2019-03-04 11:50 | CPS ---
patient does not think he needs bipap right now
[2019-03-04] MEDS: Insulin Lispro 100 UNIT/ML INSULN.PEN 10 UNIT SC ×2 (11:59→16:45)
--- NOTE | 2019-03-04 12:08 | NURSING ---
Discussed bipap order with pt. He states he feels he is breathing better today and does not want machine on his face. Educated on why doctor ordered- blood gases completed. This RN spoke with RT and notified of patient refusing bipap. Benefit is not greater than [place]
[2019-03-04 17:01] LABS: Bedside Glucose 208 mg/dL (70-110)
[2019-03-04] MEDS: Acetaminophen 325 MG Tablet 650 MG PO (21:22)
[2019-03-04] MEDS: Atorvastatin Calcium 20 MG Tablet PO (22:01)
[2019-03-04 23:35] LABS: Bedside Glucose 299 mg/dL (70-110)
--- NOTE | 2019-03-04 23:35 | CPS ---
Patient refused to wear PAP therapy this evening. Patient was informed of PAP therapy benefits. Patient still refusing PAP therapy.
[2019-03-05] VITALS (8 sets, daily range): BP systolic 112–137; BP diastolic 50–73; PULSE 94–120; RESP 18–22; TEMP 36.4–36.6; O2SAT 89–97
[2019-03-05] MEDS: Magnesium Hydroxide 30 ML UDC 15 ML PO (01:53)
[2019-03-05] MEDS: 0.9% Saline Lock 10 ML Syringe IV ×2 (01:53→06:16)
[2019-03-05 06:30] LABS: Absolute Lymphocyte Count 0.36 X10^3/uL (0.83-4.51); Absolute Neutrophil Count 12.4 X10^3/uL (2.0-7.7); Basophil# 0.01 X10^3/uL; Basophil% 0.1 % (0-1); Hematocrit 34.2 % (40-54); Hemoglobin 11.2 g/dL (13.0-16.5); Lymphocyte # 0.36 X10^3/ul (4.0); Lymphocyte % 2.7 % (19-41); Mean Corp Hgb Conc 32.7 g/dL (32-36); Mean Corpuscular Hgb 30.9 pg (27.0-32.0); Mean Corpuscular Volume 94.2 fL (80-94); Mean Platelet Vol. 11.2 fl (6.2-12.0); Monocyte# 0.35 X10^3/uL; Monocyte% 2.6 % (0-10); NRBC Flagged by Analyzer 0 % (0-5); Neutrophil # 12.38 X10^3/uL (2.7-7.7); Neutrophil % 93.6 % (47-70); POSITIVE DIFFERENTIAL YES; Platelet Count 200 K/mm3 (150-450); RBC Distribution Width SD 44.7 fl (35.1-43.9); Red Blood Count 3.63 M/mm3 (4.6-6.2); White Blood Count 13.2 K/mm3 (4.4-11.0)
[2019-03-05 06:47] LABS: Differential Indicated SCAN CRITERIA MET
[2019-03-05 06:50] LABS: Anion Gap 4 (5-15); BUN 38 mg/dL (7-18); Calcium,Total 8.7 mg/dL (8.5-10.1); Chloride 98 mmol/L (98-107); Creatinine, Serum 1.15 mg/dL (0.70-1.30); EST Glomerular Filtration Rate 65 mL/min (>60); Est Glom Filt Rate - Afr Amer 78 mL/min (>60); Estimated Creatinine Clearance 49.52 ml/min; Glucose 274 mg/dL (74-106); Potassium 4.4 mmol/L (3.5-5.1); Sodium Level 136 mmol/L (136-145)
[2019-03-05] MEDS: Ipratropium/Albuterol Sulfate 3 ML AMPUL.NEB INHALATION ×2 (07:22→11:04)
[2019-03-05 08:00] LABS: Bedside Glucose 279 mg/dL (70-110)
[2019-03-05] MEDS: Insulin Lispro 100 UNIT/ML INSULN.PEN SC ×2 (08:39→12:34)
[2019-03-05] MEDS: Insulin Lispro 100 UNIT/ML INSULN.PEN 10 UNIT SC ×2 (08:39→12:34)
[2019-03-05] MEDS: Glimepiride 2 MG Tablet PO (08:40)
[2019-03-05] MEDS: Aspirin 81 MG TAB.CHEW PO (08:40)
--- NOTE | 2019-03-05 09:52 | PCM.DC ---
- Discharge Diagnoses Current Active Problems: Current Active and Chronic Problems (Last Reviewed 02/16/19 @ 14:40 by Michele Farris DO) Bronchitis (Acute) COPD exacerbation (Acute) You will use the following diet at home:: Calorie/Carbohydrate Controlled (specify 1200, 1400, etc) - CARB CONTROLLED Your food should be the consistency of: Regular Discharge Activity: May Not Drive Call your doctor if you observe: Fever of 101 or Higher, Coldness, Increased Pain, Numbness or Tingling, Change in Color, Inability to urinate, Inability to have a bowel movement, Shortness of breath, Dizziness, Fainting spells, Swelling in the ankles, Chest pain, Prolonged hiccoughing, Increased palpitations (irregular heartbeat) Allergies/Adverse Reactions: Allergies WORM MEDICATION Allergy (Uncoded 03/02/19 15:00) Hives 50 years ago. kids had got worms so the whole family needed to be treated for it. Medications to take at Discharge Aspirin [Aspirin, Baby] 81 mg PO DAILY@0800 01/18/17 Atorvastatin Calcium [Lipitor] 20 mg PO DAILY 01/18/17 Lisinopril/Hydrochlorothiazide [Zestoretic Tablet] 1 tab PO DAILY 01/18/17 Metoprolol Succinate [Toprol Xl] 50 mg PO DAILY 01/18/17 Nitroglycerin [Nitrostat] 0.4 mg SL PRN PRN 01/18/17 Pioglitazone HCl 15 mg PO DAILY 01/18/17 Tiotropium [place] [Spiriva] 18 mcg INHALATION DAILY 01/18/17 Nebulizer [Aeroneb Go Nebulizer] 1 ea MC Q4H PRN #1 ea 10/01/18 metFORMIN HCl [Glucophage] 500 mg PO DAILY 02/16/19 Albuterol Aerosols [Ventolin Aerosols] 2.5 mg INHALATION Q4H PRN PRN #30 vial.neb. 03/05/19 Benzonatate [Tessalon Perle] 200 mg PO TID PRN PRN #20 cap 03/05/19 Glimepiride [Amaryl] 2 mg PO DAILY@0800 #30 tab 03/05/19 Guaifenesin [Mucinex] 1,200 mg PO BID #14 tab 03/05/19 Ipratropium/Albuterol Sulfate [Duoneb] 3 ml INHALATION Q4HWA.RT #30 ampul.neb 03/05/19 Prednisone 10 mg PO UD #30 tab 03/05/19 The following prescriptions were given: Glimepiride [Amaryl] 2 mg PO DAILY@0800 #30 tab Transmission Status: Received by [facility] Ipratropium/Albuterol Sulfate [Duoneb] 3 ml INHALATION Q4HWA.RT #30 ampul.neb Transmission Status: Received by [facility] Guaifenesin [Mucinex] 1,200 mg PO BID #14 tab Transmission Status: Received by [facility] Prednisone 10 mg PO UD #30 tab Transmission Status: Received by [facility] Benzonatate [Tessalon Perle] 200 mg PO TID PRN PRN #20 cap PRN Reason: cough Transmission Status: Received by [facility] Albuterol Aerosols [Ventolin Aerosols] 2.5 mg INHALATION Q4H PRN PRN #30 vial.neb. PRN Reason: Sob &/Or Wheezing Transmission Status: Received by [facility] Primary Care Physician: Kevin Mcdowell III, MD [Primary Care Provider] - Please follow up with your Primary Care Physician in: IN 2 WEEKS Test Results: Test results from this visit will be discussed in further detail at your follow-up appointment, if applicable. Please Follow Up With: Kevin Mcdowell III, MD When: Sunday Please Follow Up With: Krystle Dumont NP-C When: on 03/06/2019
[2019-03-05] MEDS: Metoprolol(XL)Succ 50 MG Tablet PO (11:20)
[2019-03-05] MEDS: Psyllium 1 PACKET PO (11:25)
[2019-03-05] MEDS: guaiFENesin 1,200 MG Tablet 1200 MG PO (11:25)
[2019-03-05 11:46] LABS: Bedside Glucose 281 mg/dL (70-110)
--- NOTE | 2019-03-05 12:03 | PCM.DC.SUM ---
Discharge Date and Diagnosis - Problem List Patient Problems: Active and Suspected Problems (Last Reviewed 02/16/19 @ 14:40 by Michele Farris DO) Bronchitis (Acute) COPD exacerbation (Acute) Date of Admission: 03/02/19 Date of Discharge: 03/05/19 - Primary Discharge Diagnosis Active and Suspected Problems (Last Reviewed 02/16/19 @ 14:40 by Michele Farris DO) Bronchitis (Acute) COPD exacerbation (Acute) - Secondary Discharge Diagnosis Chronic Problems (Last Reviewed 02/16/19 @ 14:40 by Michele Farris DO) Chronic respiratory failure with hypoxia (Chronic) Carotid stenosis, bilateral (Chronic) Peripheral arterial disease (Chronic) Coronary artery disease (Chronic) History of cardiac stents (Chronic) Dyslipidemia (Chronic) DM type 2 (diabetes mellitus, type 2) (Chronic) Hypertension (Chronic) COPD (chronic obstructive pulmonary disease) (Chronic) Hospital Course and Treatment Operations: None Summary of Care Provided: The patient is a 83 year old M with history of COPD, chronic combined hypoxic and hypercarbic respiratory failure with baseline 4 to 6 L of oxygen came to ER with severe shortness of breath and nonproductive cough that has worsened over past several days. Patient also had leukocytosis 18,000 and was discharged recently on prednisone. Also had lactic acid 3.8 and a transient hypotension which responded to IV fluids 1. Acute on chronic hypoxic and hypercarbic respiratory failure secondary to COPD exacerbation: [facility] Currently patient is on 4 L of oxygen. respiratory panel on 02/06 was positive RSV. Chest x-ray did not show consolidation but Levaquin was added for progressive worsening of symptoms and recent admission. Sputum culture is pending. Discontinue IV fluid as patient lactic acid returned to 2.0. I think, lactic acid was elevated probably secondary to hypoperfusion. Acute sepsis or severe sepsis ruled out on 03/03/2019. Continue-Incentive spirometry, and chest physiotherapy 03/04/2019: Patient is more short of breath and had respiratory distress. On Mucinex, incentive spirometry and chest physiotherapy. Sepsis work-up was negative. Pneumonia ruled out. ABG was done. PCO2 was on baseline 50. pH 7.47, PO2 67 on 4 L of oxygen through nasal cannula. The patient was put on BiPAP. 03/05/2019: Patient is not short of breath at rest but on exertion. Oxygen requirement is 3 L through nasal cannula. Patient earlier refused for BiPAP. Walking pulse oximetry ordered. Patient is discharged home with follow-up with Dr. Christensen tomorrow 03/06/2019. 2. Hypertension: Blood pressure is normotensive. Blood pressure is controlled 3. Coronary artery disease and peripheral artery disease: Home medication continued 4. Dyslipidemia: 5. DM 2 with hyperglycemia secondary to Solu-Medrol: Hold metformin and Actos secondary to lactic acidosis. Glimepiride resumed with higher dose 2 mg daily. Continue Accu-Cheks and cover with Humalog sliding scale and Lantus. 03/04/2019: Hyperglycemia secondary to Solu-Medrol: Lantus insulin increased. Scheduled lispro insulin 3 times daily before meal along with a coverage scale 03/05/2019: Blood sugars are controlled. Discharge medication reconciliation done. Discharge follow-up instructions completed. Discharge process discussed with the patient and all questions were answered to patient's satisfaction. Prescription sent to retail pharmacy. Discharged on tapering dose of prednisone. Total time spent, exact 35 minutes on discharge meds reconciliation, examination, review of imaging and blood test and discussion with the patient on follow-up instructions. Patient Problems: Active and Suspected Problems (Last Reviewed 02/16/19 @ 14:40 by Michele Farris DO) Bronchitis (Acute) COPD exacerbation (Acute) Objective: General: Alert, Oriented x3, Cooperative HEENT: Atraumatic, PERRLA, EOMI, Normocephalic Oral: No Gingival or Mucosal Lesions/ Ulcerations Neck: Supple, No JVD, Negative Carotid Bruits Lungs: Air entry diminished in all lung valdez although has improved. Bilateral expiratory rhonchi. Cardiovascular: Regular rate, Regular Rhythm, Normal S1, Normal S2, No murmurs Abdomen: Bowel Sounds Present, Soft, Non Tender, Non-Distended Extremities: No edema, Capillary Refill Less than 3 Seconds Skin: No rashes, No breakdown Musculoskeletal: No Tenderness to Palpation of Joints or Extremities, Arthritic Changes Neurological: Cranial nerves II-XII grossly intact, Deep Tendon Reflexes 2+/4 and Symmetrical, Neuro grossly intact Psych/Mental Status: Normal Affect, Appropriate - Physical Exam Vitals/I&O's: Vital Signs Temp Pulse Resp BP Pulse Ox 97.6 F L 94 22 H 137/65 H 97 03/05/19 01:50 01/15/20 07:22 03/05/19 07:22 03/05/19 01:50 03/05/19 07:22 Oxygen Flow Rate (L/min) 2 Oxygen Delivery Method Nasal Cannula Weight: 161 lb 9.581 oz Body Mass Index (BMI) 23.8 Intake and Output for Last 24 Hours 03/03/19 03/04/19 03/05/19 23:59 23:59 23:59 Intake Total 3291.92 / 3466.92 1735 / 2535 860 / 860 Output Total 1800 / 2850 3650 / 4250 1300 / 1300 Balance 1491.92 / 616.92 -1915 / -1715 -440 / -440 Microbiology Past 72 Hours 03/02/19 13:04 Blood Culture (Wb) - Anticubital Right Blood Culture - Preliminary No growth in 48 hours. 03/02/19 12:40 Blood Culture (Wb) - Anticubital Right Blood Culture - Preliminary No growth in 48 hours. 03/03/19 Unknown Sputum, Expectorated/Coughed Gram Stain - Final Laboratory Results 03/04/19 10:43: POC Glucose 409 H 03/04/19 11:13: Specimen Type ART, Sample Site L Radial, pH 7.47 H, Bicarbonate Actual 36.4 H, POC Total CO2 38, Base Excess 13 H, O2 Saturation 94 L, ABG pCO2 50.1 H, ABG pO2 67 L, Koko Test POS, O2 Delivery Device Nasal Can, Liter Flow 4.0, Blood Gas Notified Whom [facility] , Blood Gas Notified Time 1115 03/04/19 16:42: POC Glucose 208 H 03/04/19 22:06: POC Glucose 299 H 03/05/19 06:20: WBC 13.2 H, RBC 3.63 L, Hgb 11.2 L, Hct 34.2 L, MCV 94.2 H, MCH 30.9, MCHC 32.7, RDW Std Deviation 44.7 H, RDW Coeff of Delia 13.0, Plt Count 200, MPV 11.2, Immature Gran % (Auto) 1.000 H, Neut % (Auto) 93.6 H, Lymph % (Auto) 2.7 L, [place] % (Auto) 2.6, Eos % (Auto) 0.0, Baso % (Auto) 0.1, Absolute Neuts (auto) 12.4 H, Absolute Lymphs (auto) 0.36 L, Nucleated RBC % 0, Differential Comment 03/05/19 06:20: Sodium 136, Potassium 4.4, Chloride 98, Carbon Dioxide 34.0 H, Anion Gap 4 L, BUN 38 H, Creatinine 1.15, Estim Creat Clear Calc 49.52, Est GFR (MDRD) Af Amer 78, Est GFR (MDRD) Non-Af 65, BUN/Creatinine Ratio 33.0 H, Glucose 274 H, Calcium 8.7 Current Medications Acetaminophen (Tylenol) 650 mg PO Q6H PRN PRN PRN Reason: Pain Score 1-3/Temp > 100.7 F Last Admin: 03/04/19 21:22 Dose: 650 mg Documented by: Albuterol/Ipratropium (Duoneb) 3 ml INHALATION Q4HWA.RT [facility] Last Admin: 03/05/19 07:22 Dose: 3 ml Documented by: Aspirin (Aspirin, Baby) 81 mg PO DAILY@0800 [facility] Last Admin: 03/04/19 09:38 Dose: 81 mg Documented by: Atorvastatin Calcium (Lipitor) 20 mg PO QHS [facility] Last Admin: 03/04/19 22:01 Dose: 20 mg Documented by: Benzonatate (Tessalon Perle) 200 mg PO TID PRN PRN PRN Reason: cough Dextrose (D50w Syringe) 0 gm IV X1 PRN; Protocol PRN Reason: Hypoglycemia Glimepiride (Amaryl) 2 mg PO DAILY@0800 [facility] Last Admin: 03/04/19 09:38 Dose: 2 mg Documented by: Glucagon () 1 mg IM .X1 PRN PRN Reason: Hypoglycemia Guaifenesin (Mucinex) 1,200 mg PO BID [facility] Last Admin: 03/04/19 22:04 Dose: 1,200 mg Documented by: Levofloxacin (Levaquin Iv) 750 mg in 150 mls @ 100 mls/hr IV Q48 [facility] Last Infusion: 03/04/19 11:59 Dose: Infused Documented by: Sodium Chloride () 250 mls @ 15 mls/hr IV .[id number] PRN PRN Reason: Saline Flush Sodium Chloride () 250 mls @ 15 mls/hr IV .[id number] PRN PRN Reason: Additional IVPB Infusion Insulin Glargine (Lantus (Bk)) 18 units SC BID [facility] Last Admin: 03/04/19 22:06 Dose: 18 units Documented by: Insulin Human Lispro (Humalog Kwikpen (Bk)) 0 unit SC ACHS [facility]; Protocol Last Admin: 03/04/19 22:07 Dose: 6 units Documented by: Insulin Human Lispro (Humalog Kwikpen (Bk)) 10 unit SC TIDAC [facility] Last Admin: 03/04/19 16:45 Dose: 10 units Documented by: Magnesium Hydroxide (Milk Of Magnesia) 15 ml PO DAILY PRN PRN Reason: Constipation Last Admin: 03/05/19 01:53 Dose: 15 ml Documented by: Methylprednisolone (Solu-Medrol) 40 mg IV Q8 [facility] Last Admin: 03/05/19 06:16 Dose: 40 mg Documented by: Metoprolol Succinate (Toprol Xl (Beta Estevan)) 50 mg PO DAILY [facility] Last Admin: 03/04/19 09:38 Dose: Not Given Documented by: Nitroglycerin (Nitrostat) 0.4 mg SUBLINGUAL Q5M PRN PRN Reason: ANGINA Nutritional Formula (Lactose Free) (Glucerna Shake) 120 ml PO TIDCM [facility] Last Admin: 03/04/19 16:47 Dose: Not Given Documented by: Ondansetron HCl (Zofran) 4 mg IV Q8H PRN PRN PRN Reason: NAUSEA/VOMITING Polyethylene Glycol (Miralax) 17 gm PO DAILY PRN PRN Reason: Constipation Psyllium Hydrophilic Mucilloid (Metamucil) 1 packet PO DAILY [facility] Sodium Chloride () 10 - 40 ml IV UD PRN PRN Reason: SALINE FLUSH Last Admin: 03/05/19 06:16 Dose: 10 ml Documented by: Discharge Activity: May Not Drive Call your doctor if you observe: Fever of 101 or Higher, Coldness, Increased Pain, Numbness or Tingling, Change in Color, Inability to urinate, Inability to have a bowel movement, Shortness of breath, Dizziness, Fainting spells, Swelling in the ankles, Chest pain, Prolonged hiccoughing, Increased palpitations (irregular heartbeat) Home Medications: Medications to take at Discharge Aspirin [Aspirin, Baby] 81 mg PO DAILY@0800 01/18/17 Atorvastatin Calcium [Lipitor] 20 mg PO DAILY 01/18/17 Lisinopril/Hydrochlorothiazide [Zestoretic Tablet] 1 tab PO DAILY 01/18/17 Metoprolol Succinate [Toprol Xl] 50 mg PO DAILY 01/18/17 Nitroglycerin [Nitrostat] 0.4 mg SL PRN PRN 01/18/17 Pioglitazone HCl 15 mg PO DAILY 01/18/17 Tiotropium [place] [Spiriva] 18 mcg INHALATION DAILY 01/18/17 Nebulizer [Aeroneb Go Nebulizer] 1 ea MC Q4H PRN #1 ea 10/01/18 metFORMIN HCl [Glucophage] 500 mg PO DAILY 02/16/19 Albuterol Aerosols [Ventolin Aerosols] 2.5 mg INHALATION Q4H PRN PRN #30 vial.neb. 03/05/19 Benzonatate [Tessalon Perle] 200 mg PO TID PRN PRN #20 cap 03/05/19 Glimepiride [Amaryl] 2 mg PO DAILY@0800 #30 tab 03/05/19 Guaifenesin [Mucinex] 1,200 mg PO BID #14 tab 03/05/19 Ipratropium/Albuterol Sulfate [Duoneb] 3 ml INHALATION Q4HWA.RT #30 ampul.neb 03/05/19 Prednisone 10 mg PO UD #30 tab 03/05/19 Following Prescrptions Were Given to Patient: Glimepiride [Amaryl] 2 mg PO DAILY@0800 #30 tab Transmission Status: Received by [facility] Ipratropium/Albuterol Sulfate [Duoneb] 3 ml INHALATION Q4HWA.RT #30 ampul.neb Transmission Status: Received by [facility] Guaifenesin [Mucinex] 1,200 mg PO BID #14 tab Transmission Status: Received by [facility] Prednisone 10 mg PO UD #30 tab Transmission Status: Received by [facility] Benzonatate [Tessalon Perle] 200 mg PO TID PRN PRN #20 cap PRN Reason: cough Transmission Status: Received by [facility] Albuterol Aerosols [Ventolin Aerosols] 2.5 mg INHALATION Q4H PRN PRN #30 vial.neb. PRN Reason: Sob &/Or Wheezing Transmission Status: Received by [facility] Primary Care Physician: Kevin Mcdowell III, MD [Primary Care Provider] - Please follow up with your Primary Care Physician in: IN 2 WEEKS Please Follow Up With: Kevin Mcdowell III, MD When: Sunday Please Follow Up With: Krystle Dumont NP-C When: Medical Necessity - Tobacco Use Smoking Status: Former smoker Tobacco Use: Cigarettes Meaningful Use Info Meaningful Use Diagnoses (Choose all that apply): None applicable Code Visit Inpatient E&M: 01752 Disch Hosp
--- NOTE | 2019-03-05 14:37 | CASEMGMT ---
Social Work Note Pt is discharging today. SW in to speak with pt regarding Palliative Care. Pt states that he will take Palliative Care brochure home and will review information. Pt denied wanting this worker to make Palliative Care referral at this time. Kinjal Humphreys HEALTH CLAIMS EXAMINER, DENTAL SERVICES DIRECTOR
--- NOTE | 2019-03-06 15:09 | CASEMGMT ---
ANDRE CM Discharge Follow-up Phone Call: YULIYA: Ammy Strata: 4 Call Date: 03/06/2019 Discharge Date: 03/05/2019 Time of Call: 1500 Duration: 5 minutes Admitting Diagnosis: COPD exacerbation Discharge follow-up call placed to pt. Pt states he is feeling better but continues with moist productive cough. States he was able to expectorate a large amount this AM. Pt denies any SOB. Pt states he is wearing his home O2 currently stated to be at 3l/min and using his nebulizer machine. Pt states he was able to obtain his medications at discharge and has been taking them as prescribed. Pt states I am being a good boy. Pt is aware of follow-up appointments with Dr. Mcdowell on Sunday and pulmonary on . Confirmed pulmonary appointment time as 944. Pt states his son should be able to transport him to these appointments. Pt denies any further concerns, questions, or needs. Fady Robles RN
== END 2019-03-05 14:15 | disposition home or self-care (01) | DRG 189 ==
LOC: ED 13:45 → MS3 14:27
PROVIDERS: Internal Medicine; Admitting Provider Family Medicine; Emergency Provider Emergency Medicine; Family Provider Family Medicine; PCP Family Medicine; Referring Provider Family Medicine; Visit Provider Internal Medicine
DX: J96.21 Acute and chronic respiratory failure with hypoxia (principal); J44.1 Chronic obstructive pulmonary disease with (acute) exacerbation; E87.2 Acidosis; J96.22 Acute and chronic respiratory failure with hypercapnia; I25.10 Atherosclerotic heart disease of native coronary artery without angina pectoris; Z99.81 Dependence on supplemental oxygen; I73.9 Peripheral vascular disease, unspecified; E78.5 Hyperlipidemia, unspecified; I10 Essential (primary) hypertension; I65.23 Occlusion and stenosis of bilateral carotid arteries; E11.65 Type 2 diabetes mellitus with hyperglycemia; Z95.5 Presence of coronary angioplasty implant and graft; Z87.891 Personal history of nicotine dependence; Z79.84 Long term (current) use of oral hypoglycemic drugs; T38.0X5A Adverse effect of glucocorticoids and synthetic analogues, initial encounter
CPT/HCPCS: 36415; 36600; 71045; 80048; 82803; 82947; 82962; 83605; 85025; 87040; 87070; 87205; 93005; 94640; 94667; 94668; 97110; 97162; 97166; 97530; 97535; 97802; 99251; 99285; J7030; J7040; J7050; A4216; G0463

== ENCOUNTER 2019-07-01 09:27 | Inpatient (IN) | payer MEDICARE, OTHER, SELFPAY ==
[2019-03-13 07:49] VITALS: BMI 23.2
[2019-07-01] VITALS (18 sets, daily range): BP systolic 123–156; BP diastolic 51–79; PULSE 83–99; RESP 16–22; TEMP 36.3–36.8; O2SAT 89–97; BMI 27.8; BMI 26.6
--- NOTE | 2019-07-01 09:28 | EKG12_ITS ---
Test Reason : SOB Blood Pressure : / mmHG Vent. Rate : 089 BPM Atrial Rate : 089 BPM P-R Int : 164 ms QRS Dur : 112 ms QT Int : 378 ms P-R-T Axes : 050 -27 053 degrees QTc Int : 459 ms Normal sinus rhythm Normal ECG Confirmed by PEDRO ARITA [id number]), commissioning editor ALEXA GUPTA ([id number] on 07/07/2019 1:37:07 PM Referred By: DEBBY Confirmed By:PEDRO ARITA
--- NOTE | 2019-07-01 09:33 | ED.VIS.GEN ---
History of Present Illness Chief Complaint: Shortness of Breath Narrative: 83-year-old male with a history of end-stage COPD on 4 to 6 L of continuous nasal cannula oxygen at baseline presents with approximately 24 hours of gradual onset increased shortness of breath and productive cough with a change in his sputum production pattern. He denies recent illness or obvious exposure to coronavirus. He has been sheltering in place at home. He reports generalized weakness and subjective fever as well. He feels as if he has pneumonia. He was hypoxic on his baseline amount of oxygen this morning and on EMS arrival, he had to be placed on a facemask. Current severity of his symptoms is moderate. Prior similar symptoms: Yes Recent Illness/Hospitalization: Yes Capacity - Capacity Assessment Tool Can the patient make a choice & communicate that choice?: Yes Past Medical History - Allergies and Home Meds Allergies/Adverse Reactions: Allergies WORM MEDICATION Allergy (Uncoded 03/13/19 09:25) Hives 50 years ago. kids had got worms so the whole family needed to be treated for it. Primary Care Physician: Kevin Mcdowell III, MD [Primary Care Provider] - Prior records reviewed: Yes Past Medical History: - - Hypertension, COPD, diabetes Surgical History: - - Carotid endarterectomy, bilateral femoral bypass Smoking Status: Former smoker - Family History Maternal Family History: Family History (Last Reviewed 03/13/19 @ 09:42 by CLAUDETTE Jeffery) Other Family history unknown Family History: Reports: No pertinent history Review of Systems General: Reports: Fever, Malaise. Denies: Chills, Sweats Eyes: Denies: Visual changes - bilaterally, Diplopia ENT: Denies: Rhinorrhea, Sore throat Cardiovascular: Denies: Chest pain, Palpitations Respiratory: Reports: Dyspnea, Cough, Dyspnea on exertion Gastrointestinal: Denies: Abdominal pain, Nausea, Vomiting, Diarrhea, Melena, Hematochezia Genitourinary: Denies: Dysuria, Hematuria, Frequency Musculoskeletal: Denies: Back pain, Extremity Pain Skin: Denies: Rash, Wounds Neurological: Reports: Weakness - general. Denies: Headache, Numbness Hematologic: Denies: Easy bleeding Physical Exam Vital Signs/Narrative: Vital Signs Temp Pulse Resp BP Pulse Ox 07/01/19 09:28 97.6 F L 89 20 H 140/51 H 92 Inital Vital Signs reviewed: Yes General: Acute Distress Head: Normocephalic Eyes: Pale conjunctiva ENT: Dry mucous membranes Neck: Supple Cardiovascular: Tachycardia Respiratory: Wheezing Abdomen: Soft, Nontender. Negative for: Tender, Guarding, Rebound tenderness Back: Nontender, Normal Inspection Extremities: Nontender, No edema Skin: Normal color, No rash Neurological: Alert, Oriented x3, Cranial nerves II-XII grossly intact Psychological: Normal affect Diagnostic/Tx/Re-eval Chest X-Ray - ED: 1 View, Right Infiltrate - Rhythm Strip Rhythm Strip: Sinus Rhythm Rate: 89 Ectopy: None - Medical Decision Making Chest x-ray reveals right lower lobe infiltrate. White blood cell count is normal. No thrombocytopenia and no lymphopenia. Lactic acid normal. He is hypoxic on his regular amount of oxygen and I do therefore feel that he meets criteria for hospitalization and I suspect his hospitalization length of stay will be greater than 2 midnights for the completion of care given his multiple comorbidities and high baseline oxygen requirement so I do feel he meets criteria for full admission. He was treated with Rocephin and Zithromax. A COVID swab was sent and is still pending but at this point he will be admitted to the COVID unit. He was also given IV Solu-Medrol and duonebs. - Critical Care Time Critical care time (excluding procedures): 30-74 minutes, Discussing w/Patient &/or Family/Sky Diver, Discussing w/Consultants, Arranging Admission or Transfer, Performing Direct Patient Care at Bedside ED Disposition - Plan for ED Patient: Disposition: Acute Care Hospital [facility] Diagnosis: Suspected COVID-19 virus infection, COPD exacerbation, Hypoxia, Chronic respiratory failure, Community acquired bacterial pneumonia Referrals: Kevin Mcdowell III, MD [Primary Care Provider] -
[2019-07-01 10:13] LABS: Absolute Lymphocyte Count 1.49 X10^3/uL (0.83-4.51); Absolute Neutrophil Count 4.5 X10^3/uL (2.0-7.7); Basophil# 0.03 X10^3/uL; Basophil% 0.4 % (0-1); Eosinophil# 0.19 X10^3/uL; Eosinophils% 2.8 % (0-5); Hematocrit 39.4 % (40-54); Lymphocyte # 1.49 X10^3/ul (4.0); Lymphocyte % 22.3 % (19-41); Mean Corp Hgb Conc 30.5 g/dL (32-36); Mean Corpuscular Hgb 31.7 pg (27.0-32.0); Mean Platelet Vol. 10.8 fl (6.2-12.0); Monocyte# 0.48 X10^3/uL; Monocyte% 7.2 % (0-10); NRBC Flagged by Analyzer 0 % (0-5); Neutrophil # 4.45 X10^3/uL (2.7-7.7); Neutrophil % 66.7 % (47-70); Platelet Count 206 K/mm3 (150-450); Red Blood Count 3.79 M/mm3 (4.6-6.2); White Blood Count 6.7 K/mm3 (4.4-11.0)
--- NOTE | 2019-07-01 10:20 | RAD_ITS ---
STUDY: X-RAY CHEST REASON FOR EXAM: Male, 83 years old. SOB FOR A FEW DAYS, WORSE TODAY; HX COPD TECHNIQUE: Single AP portable view of the chest. COMPARISON: Comparison is made with prior study dated August 31, 2019. FINDINGS: EKG electrodes are seen. Small left pleural effusion with left basilar infiltrate and/or atelectasis. Focal atelectasis and/or infiltrate also seen in the right lower lobe. Normal size heart. Normal mediastinum and dionne. Normal visualized pulmonary arteries. There is atherosclerotic calcification of the aortic arch with tortuosity. There are diffuse degenerative changes of the visualized thoracic spine. Normal visualized ribs, clavicles, and shoulders. There is no demonstrated abnormality of the visualized soft tissue structures of the upper abdomen. RAD/Chest 1 View (Portable) IMPRESSION: Small left pleural effusion with the left basilar infiltration and/or atelectasis as well as increased markings at the right lung base suggestive of atelectasis and/or infiltrate. Follow-up is recommended. Electronically Signed: Renan Domínguez, at 10:34 EDT , Service support ,
[2019-07-01 10:22] LABS: International Normalized Ratio 1.1; Partial Thromboplast Time 29.4 Seconds (24.1-36.2); Prothrombin Time (Protime)PT. 13.3 SECONDS (11.7-14.9)
[2019-07-01 10:40] LABS: ALB/GLOB Ratio 0.8 RATIO (0.9-2.4); AST(SGOT) 13 U/L (15-37); Alanine Aminotransfer ALT/SGPT 13 U/L (16-61); Albumin, Serum 3.2 g/dL (3.2-5.0); Alkaline Phosphatase 119 U/L (45-117); BUN 25 mg/dL (7-18); Calcium,Total 9.2 mg/dL (8.5-10.1); Carbon Dioxide > 45.0 mmol/L (21.0-32.0); Chloride 96 mmol/L (98-107); Creatinine, Serum 1.04 mg/dL (0.70-1.30); EST Glomerular Filtration Rate 73 mL/min (>60); Est Glom Filt Rate - Afr Amer 88 mL/min (>60); Estimated Creatinine Clearance 54.76 ml/min; Globulin 3.8 g/dL (2.2-4.2); Glucose 210 mg/dL (74-106); Potassium 3.5 mmol/L (3.5-5.1); Sodium Level 142 mmol/L (136-145)
[2019-07-01] MEDS: MethylPREDNISolone 125 MG/2 ML Vial IV (11:05)
--- NOTE | 2019-07-01 11:20 | PCM.HP.STD ---
Problem List (1) Acute and chronic respiratory failure Status: Chronic Qualifiers: Respiratory failure complication: hypoxia and hypercapnia Qualified Code(s): J96.21 - Acute and chronic respiratory failure with hypoxia; J96.22 - Acute and chronic respiratory failure with hypercapnia (2) COVID-19 Status: Acute (3) Carotid stenosis, bilateral Status: Chronic (4) Peripheral arterial disease Status: Chronic (5) Coronary artery disease Status: Chronic (6) History of cardiac stents Status: Chronic (7) Dyslipidemia Status: Chronic (8) DM type 2 (diabetes mellitus, type 2) Status: Chronic Qualifiers: Diabetes mellitus termite control representative insulin use: without termite control representative use Diabetes mellitus complication status: with other specified complication Qualified Code(s): E11.69 - Type 2 diabetes mellitus with other specified complication (9) Hypertension Status: Chronic Qualifiers: Hypertension type: essential hypertension Qualified Code(s): I10 - Essential (primary) hypertension History of Present Illness Date of Admission: 07/01/19 Chief Complaint: Shortness of breath?2 days The patient is a 83 year old M past medical history of COPD with chronic hypoxic respiratory failure on 4 L of oxygen, hypertension, type II DM, CAD status post stents, PAD, who comes in with complaints of shortness of breath ongoing for 2 days. Patient denies any fever or chills or nausea vomiting or diarrhea or abdominal pain. He lives with his son. Denies any sick contacts. He states that his son is well. He noticed progressive shortness of breath from yesterday. He asked his son to increase his oxygen to 5 L. This morning whilst trying to go to the bathroom, he was progressively short of breath. EMS were called, he was found to be saturating 85% on 5 L of oxygen. This increased with use of face mask to 95%. Vitals in the ED showed temperature 97.6 F, heart rate 89, blood pressure 140/51, respiratory 20, SPO2 was 92% on 5 L of oxygen. WBC count is 6.7, hemoglobin 12.0, platelet count 206, INR 1.1, BMP shows sodium 142, potassium 3.5, chloride 96, bicarbonate was 45, BUN 25, Cr 1.04, Glucose 210, Lactic acid 1.0. AST 13, ALT 134, ALP 119. Chest X-ray showed small pleural effusion with left basilar infiltrate and/or atelectasis. Past Medical History Past Medical History (Chronic Problems): Chronic Problems (Last Reviewed 03/13/19 @ 09:42 by Krystle Dumont NP-C) Chronic respiratory failure (Chronic) Acute and chronic respiratory failure (Chronic) Chronic respiratory failure with hypoxia (Chronic) Carotid stenosis, bilateral (Chronic) Peripheral arterial disease (Chronic) Coronary artery disease (Chronic) History of cardiac stents (Chronic) Dyslipidemia (Chronic) DM type 2 (diabetes mellitus, type 2) (Chronic) Hypertension (Chronic) COPD (chronic obstructive pulmonary disease) (Chronic) Medical History: Medical History (Last Reviewed 03/13/19 @ 09:42 by Krystle Dumont NP-C) History of pneumonia (Acute) Z87.01 History of bronchitis (Acute) Z87.09 COPD exacerbation (Acute) J44.1 Carotid stenosis, bilateral (Chronic) I65.23 Peripheral arterial disease (Chronic) Coronary artery disease (Chronic) History of cardiac stents (Chronic) Dyslipidemia (Chronic) E78.5 DM type 2 (diabetes mellitus, type 2) (Chronic) E11.9 Hypertension (Chronic) I10 COPD (chronic obstructive pulmonary disease) (Chronic) J44.9 Allergies WORM MEDICATION Allergy (Uncoded 03/13/19 09:25) Hives 50 years ago. kids had got worms so the whole family needed to be treated for it. Home Medications: Ambulatory Orders Medication Instructions Recorded Aspirin [Aspirin, Baby] 81 mg PO DAILY@0800 01/18/17 Lisinopril/Hydrochlorothiazide 1 tab PO DAILY 01/18/17 [Zestoretic Tablet] Metoprolol Succinate [Toprol Xl] 50 mg PO DAILY 01/18/17 Nebulizer [Aeroneb Go Nebulizer] 1 ea MC Q4H PRN #1 ea 10/01/18 metFORMIN HCl [Glucophage] 500 mg PO DAILY 02/16/19 Albuterol Aerosols [Ventolin 2.5 mg INHALATION Q4H PRN PRN #30 03/05/19 Aerosols] vial.neb. Benzonatate [Tessalon Perle] 200 mg PO TID PRN PRN #20 cap 03/05/19 Ipratropium/Albuterol Sulfate 3 ml INHALATION Q4HWA.RT #30 03/05/19 [Duoneb] ampul.neb tiotropium bromide 18 mcg capsule 18 mcg INHALATION DAILY #30 inh 03/13/19 with inhalation device Amlodipine [Norvasc] 10 mg PO DAILY 07/01/19 Atorvastatin Calcium [Lipitor] 20 mg PO DAILY 07/01/19 Glimepiride 1 mg PO DAILY 07/01/19 Guaifenesin [Mucinex] 1,200 mg PO BID 07/01/19 Pioglitazone [Actos] 45 mg PO DAILY 07/01/19 Surgical History: Surgical History (Last Reviewed 03/13/19 @ 09:42 by CLAUDETTE Jeffery) Hx of appendectomy (Resolved) Z90.49 Surgical History: - - Carotid endarterectomy, bilateral femoral bypass Psychiatric History: No pertinent psych hx Lives: With Family Smoking Status: Former smoker Tobacco Use: Non-smoker Alcohol: None Drugs: None - *Family History Maternal Family History: Family History (Last Reviewed 03/13/19 @ 09:42 by CLAUDETTE Jeffery) Other Family history unknown History Items: No pertinent history Paternal Family History: Family History (Last Reviewed 03/13/19 @ 09:42 by CLAUDETTE Jeffery) Other Family history unknown History Items: No pertinent history Review of Systems Constitutional: Reports: Anorexia, Malaise, Weakness, Fatigue. Denies: Chills, Fever, Weight Change Eyes: Denies: Blurred vision, Cataracts, Conjunctivae Inflammation, Pain, Redness, Vision Change HEENT: Denies: Difficulty Hearing, Difficulty Swallowing, Head Aches, Hearing Changes, Sinus Congestion, Sinus Drainage Cardiovascular: Reports: Light Headedness. Denies: Chest Pain, Claudication, Orthopnea, Palpitations Respiratory: Reports: Cough, Shortness of Breath, Shortness of breath at rest, Shortness of breath upon exertion. Denies: Sputum production Gastrointestinal: Denies: Abdominal Pain, Constipation, Hematemesis, Hematochezia, Nausea, Vomiting Genitourinary: Denies: Dysuria, Frequency, Incontinence Musculoskeletal: Denies: Joint Pain, Joint stiffness, Joint swelling, Joint Tenderness Skin: Denies: Pruritis, Rash, Wounds Neurological: Denies: Numbness, Tingling, Focal weakness Psychiatric: Denies: Anxiety, Depression, Homicidal Ideations, Suicidal Ideations Hematologic/ Lymphatic: Denies: Easy Bruising, Easy Bleeding VTE Information - Inpt Only VTE Present on Admission: No VTE Pharm Prophylaxis ordered?: Yes Patient Problems: Active and Suspected Problems (Last Reviewed 03/13/19 @ 09:42 by Krystle Dumont NP-C) Hypoxia (Acute) Suspected COVID-19 virus infection (Acute) Community acquired bacterial pneumonia (Acute) COVID-19 (Acute) COPD exacerbation (Acute) - Physical Exam Vitals/I&O's: Vital Signs Temp Pulse Resp BP Pulse Ox 98.1 F 86 17 134/62 H 92 07/01/19 11:17 07/01/19 11:17 07/01/19 11:17 07/01/19 11:17 07/01/19 11:17 Oxygen Flow Rate (L/min) 6 Oxygen Delivery Method Nasal Cannula Weight: 85.6 kg Body Mass Index (BMI) 27.8 General: Alert, Oriented x3, Cooperative, No apparent distress, - - in mild respiratory distress, on 5L oxygen HEENT: Atraumatic, PERRLA, EOMI, Normocephalic Oral: Dry Mucosa Neck: Supple Lungs: Diminished Cardiovascular: Regular rate, Regular Rhythm, Normal S1, Normal S2, No murmurs Abdomen: Bowel Sounds Present, Soft, Non Tender, Non-Distended, No Hepato-splenomegaly Extremities: Edema - bipedal edema + Skin: No rashes Musculoskeletal: No Tenderness to Palpation of Joints or Extremities Lymphatic: No Cervical, Supraclavicular, or Inguinal Adenopathy Neurological: Cranial nerves II-XII grossly intact, Neuro grossly intact Psych/Mental Status: Normal Affect, Appropriate Laboratory Results 07/01/19 09:45: COVID-19 (CHARLIE) Cancelled 07/01/19 09:50: WBC 6.7, RBC 3.79 L, Hgb 12.0 L, Hct 39.4 L, MCV 104.0 H, MCH 31.7, MCHC 30.5 L, RDW Std Deviation 53.0 H, RDW Coeff of Delia 14.0, Plt Count 206, MPV 10.8, Immature Gran % (Auto) 0.600, Neut % (Auto) 66.7, Lymph % (Auto) 22.3, Elliott % (Auto) 7.2, Eos % (Auto) 2.8, Baso % (Auto) 0.4, Absolute Neuts (auto) 4.5, Absolute Lymphs (auto) 1.49, Nucleated RBC % 0 07/01/19 09:50: PT 13.3, INR 1.1, APTT 29.4 07/01/19 09:50: Sodium 142, Potassium 3.5, Chloride 96 L, Carbon Dioxide > 45.0 H*, Anion Gap TNP, BUN 25 H, Creatinine 1.04, Estim Creat Clear Calc 54.76, Est GFR (MDRD) Af Amer 88, Est GFR (MDRD) Non-Af 73, BUN/Creatinine Ratio 24.0 H, Glucose 210 H, Calcium 9.2, Total Bilirubin 0.40, AST 13 L, ALT 13 L, Alkaline Phosphatase 119 H, Total Protein 7.0, Albumin 3.2, Globulin 3.8, Albumin/Globulin Ratio 0.8 L 07/01/19 09:50: Lactic Acid 1.0 Current Medications Ceftriaxone Sodium (Rocephin) 1 gm in 50 mls @ 100 mls/hr IV X1 ONE Stop: 07/01/19 11:27 Azithromycin 500 mg/ Dextrose 255 mls @ 250 mls/hr IV X1 ONE Stop: 07/01/19 11:59 Assessment/Plan All Active Problems (Last Reviewed 03/13/19 @ 09:42 by Krsytle Dumont NP-C) Hypoxia (Acute) Bronchitis (Acute) Suspected COVID-19 virus infection (Acute) Community acquired bacterial pneumonia (Acute) COVID-19 (Acute) History of pneumonia (Acute) History of bronchitis (Acute) Hx of appendectomy (Resolved) COPD exacerbation (Acute) 83 year old M with past medical history of COPD with chronic hypoxic respiratory failure on 4 L of oxygen, hypertension, type II DM, CAD status post stents, PAD, who comes in with complaints of shortness of breath ongoing for 2 days. 1. Acute on chronic respiratory failure secondary to acute COVID infection/pneumonia, Patient is on 4 L of oxygen at baseline D-dimer is elevated; will hold off on doing CT of the chest for now We will continue on IV empiric antibiotics, inhaler, IV steroids Pulmonology consulted 2. 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 Type 2 DM, on oral hypoglycemics, will hold these for now, Continue with blood glucose checks and insulin sliding scale 4. Hypertension, controlled Continue on amlodipine We will hold lisinopril/hydrochlorothiazide for now 5. CAD s/p stents/carotid stenosis/PAD, continue on aspirin 6. DVT prophylaxis with therapeutic Lovenox 7. Code status: DNR-CCA Discussed in detail with the patient explaining the various types of CODE STATUS-full code, DNR CCA, DNR CC. I asked whether he wants to be resuscitated if his heart or lungs should give up. Patient says he does not wish to be resuscitated or kept on artificial support. He chose DNR CCA, no intubation Time spent discussing CODE STATUS 18 minutes Inpatient E&M: [id number] Init Hosp L3
[2019-07-01] MEDS: Ceftriaxone 1 GM/50 ML BAG IV (11:24)
--- NOTE | 2019-07-01 11:32 | NURSING ---
[facility] 204 PAINTSIL ACUTE COPD EXAC, POSSIBLE COVID
[2019-07-01] MEDS: Ipratropium/Albuterol Sulfate 3 ML AMPUL.NEB INHALATION (11:35)
[2019-07-01 13:12] LABS: Bacteria 0 SEEN /hpf (None Seen); Mucous, Urine 0 SEEN /hpf (<or=2+); Red Blood Cells-Urine 0 SEEN /hpf (0-5); White Blood Cells 0 SEEN /hpf (0-5)
[2019-07-01 13:14] LABS: Color, Urine Yellow (Yellow); Glucose, Dipstick 250 mg/dl (Normal); Ketone-Dipstick Negative (Negative); Leukocyte Esterase-Dipstick Negative /ul (Negative); Nitrite-Dipstick Negative (Negative); Occult Blood-Urine Negative /ul (Negative); Protein-Dipstick Negative (Negative); Urine Bilirubin Dipstick Negative (Negative); Urine Clarity Clear (Clear); Urine Urobilinogen Normal (Normal)
[2019-07-01 13:15] LABS: Bedside Glucose 252 mg/dL (70-110)
[2019-07-01 13:20] LABS: Squamous Epithelial Cells - UA 0-5 SEEN /hpf (0-5)
[2019-07-01 14:22] LABS: Fibrinogen 449 mg/dl (203-444)
[2019-07-01 14:40] LABS: CPK Total, Creatine Kinase 32 U/L (39-308)
[2019-07-01 14:43] LABS: CRP < 2.90 mg/L (0.0-3.0); LDH 179 U/L (87-241)
--- NOTE | 2019-07-01 14:43 | CPS ---
Addendum entered by Dede Waldron 07/01/19 19:38: Original Note: pt was started on AIRVO 31, 50L 50%. large cannula.
--- NOTE | 2019-07-01 15:22 | PCM.CON.CC ---
Problem List (1) Acute and chronic respiratory failure Status: Chronic Qualifiers: Respiratory failure complication: hypoxia and hypercapnia Qualified Code(s): J96.21 - Acute and chronic respiratory failure with hypoxia; J96.22 - Acute and chronic respiratory failure with hypercapnia (2) COVID-19 Status: Acute (3) Chronic respiratory failure with hypoxia Status: Chronic (4) Hx of appendectomy Status: Resolved (5) Carotid stenosis, bilateral Status: Chronic (6) Peripheral arterial disease Status: Chronic (7) Coronary artery disease Status: Chronic (8) History of cardiac stents Status: Chronic (9) Dyslipidemia Status: Chronic (10) DM type 2 (diabetes mellitus, type 2) Status: Chronic Qualifiers: 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: without senior care use Diabetes mellitus complication status: with other specified complication Qualified Code(s): E11.69 - Type 2 diabetes mellitus with other specified complication (11) Hypertension Status: Chronic Qualifiers: Hypertension type: essential hypertension Qualified Code(s): I10 - Essential (primary) hypertension (12) COPD (chronic obstructive pulmonary disease) Status: Chronic Qualifiers: COPD type: emphysema Comment: FEV1 37% (01/09/2019) Reason for Consult Date of Consultation: 07/01/19 Reason for Consultation: Hypoxic respiratory failure History of Present Illness: The patient is an 83 year old M, with past medical history listed below and typically seen by Dr. Ye in our office, who presented was [facility] on 07/01/2019 secondary to worsening shortness of breath, productive cough and worsening hypoxia. Patient is normally on 3 to 4 L at baseline at rest and reported that he required 5 to 6 L to maintain saturations. Patient denied any recent COVID-19 exposures and states that he has been sheltering in place for the last 2 to 3 months. Patient states that yesterday he started to develop a fever subjectively and was concerned he may have pneumonia. In the ER, patient was noted to be hypoxic requiring a nonrebreather to maintain saturations of 92%. Chest x-ray showed a right lower lobe infiltrate. Patient was given Rocephin and Zithromax. Patient was also initiated on Solu-Medrol and DuoNeb's. Laboratory work-up showed no significant leukocytosis, elevated d-dimer at 1.6 and normal renal function with a creatinine of 1.04. Liver enzymes were decreased and CRP was not significantly elevated. Patient had a COVID-19 sent and was sent to the cohort floor for further evaluation. Shortly after arrival to the cohort floor, patient started to have worsening hypoxia. Patient was escalated to 8L nasal cannula and was eventually transitioned over to Airvo to maintain appropriate saturations. Patient did report subjective improvement in overall condition. Patient is stating that he would not want to be intubated given his advanced lung disease, but would be willing to wear BiPAP if necessary. Patient was slightly distraught on my evaluation as he felt he had done nothing to be exposed. Patient does have relatively advanced lung disease as noted on previous pulmonary function testing. Patient had a recent exacerbation secondary to RSV, but felt that he made it back to baseline before this exacerbation. Patient denies any significant worsening in lower extremity edema, chest pain, nausea or vomiting. No diarrhea has been reported. Review of systems otherwise negative from a constitutional, HEENT, respiratory, cardiovascular, GI, genitourinary, musculoskeletal, skin, neurologic, psychiatric and hematologic system unless stated above. 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) Chronic respiratory failure (Chronic) Acute and chronic respiratory failure (Chronic) Chronic respiratory failure with hypoxia (Chronic) Carotid stenosis, bilateral (Chronic) Peripheral arterial disease (Chronic) Coronary artery disease (Chronic) History of cardiac stents (Chronic) Dyslipidemia (Chronic) DM type 2 (diabetes mellitus, type 2) (Chronic) Hypertension (Chronic) COPD (chronic obstructive pulmonary disease) (Chronic) FEV1 37% (01/09/2019) Medical History: Medical History (Last Reviewed 03/13/19 @ 09:42 by Krystle Dumont NP-C) History of pneumonia (Acute) Z87.01 History of bronchitis (Acute) Z87.09 COPD exacerbation (Acute) J44.1 Carotid stenosis, bilateral (Chronic) I65.23 Peripheral arterial disease (Chronic) Coronary artery disease (Chronic) History of cardiac stents (Chronic) Dyslipidemia (Chronic) E78.5 DM type 2 (diabetes mellitus, type 2) (Chronic) E11.9 Hypertension (Chronic) I10 COPD (chronic obstructive pulmonary disease) (Chronic) J44.9 Allergies WORM MEDICATION Allergy (Uncoded 03/13/19 09:25) Hives 50 years ago. kids had got worms so the whole family needed to be treated for it. Home Medications: Ambulatory Orders Medication Instructions Recorded Aspirin [Aspirin, Baby] 81 mg PO DAILY@0800 01/18/17 Lisinopril/Hydrochlorothiazide 1 tab PO DAILY 01/18/17 [Zestoretic Tablet] Metoprolol Succinate [Toprol Xl] 50 mg PO DAILY 01/18/17 Nebulizer [Aeroneb Go Nebulizer] 1 ea MC Q4H PRN #1 ea 10/01/18 metFORMIN HCl [Glucophage] 500 mg PO DAILY 02/16/19 Albuterol Aerosols [Ventolin 2.5 mg INHALATION Q4H PRN PRN #30 03/05/19 Aerosols] vial.neb. Benzonatate [Tessalon Perle] 200 mg PO TID PRN PRN #20 cap 03/05/19 Ipratropium/Albuterol Sulfate 3 ml INHALATION Q4HWA.RT #30 03/05/19 [Duoneb] ampul.neb tiotropium bromide 18 mcg capsule 18 mcg INHALATION DAILY #30 inh 03/13/19 with inhalation device Amlodipine [Norvasc] 10 mg PO DAILY 07/01/19 Atorvastatin Calcium [Lipitor] 20 mg PO DAILY 07/01/19 Glimepiride 1 mg PO DAILY 07/01/19 Guaifenesin [Mucinex] 1,200 mg PO BID 07/01/19 Pioglitazone [Actos] 45 mg PO DAILY 07/01/19 Surgical History: Surgical History (Last Reviewed 03/13/19 @ 09:42 by CLAUDETTE Jeffery) Hx of appendectomy (Resolved) Z90.49 Surgical History: - - Carotid endarterectomy, bilateral femoral bypass Psychiatric History: No pertinent psych hx Lives: With Family Smoking Status: Former smoker Tobacco Use: Non-smoker Alcohol: None Drugs: None - *Family History Maternal Family History: Family History (Last Reviewed 03/13/19 @ 09:42 by CLAUDETTE Jeffery) Other Family history unknown History Items: No pertinent history Paternal Family History: Family History (Last Reviewed 03/13/19 @ 09:42 by CLAUDETTE Jeffery) Other Family history unknown History Items: No pertinent history Review of Systems Comment: See HPI Patient Problems: Active and Suspected Problems (Last Reviewed 03/13/19 @ 09:42 by CLAUDETTE Jeffery) Hypoxia (Acute) Suspected COVID-19 virus infection (Acute) Community acquired bacterial pneumonia (Acute) COVID-19 (Acute) COPD exacerbation (Acute) Objective: Chest x-ray was personally reviewed. Agree with formal interpretation. Previous pulmonary function tests were reviewed showing advanced COPD with an FEV1 of 37% of predicted and a symmetric reduction diffusion capacity. Patient did have a bronchodilator response in FVC. Patient does not have an echocardiogram currently in our system. - Physical Exam Vitals/I&O's: Vital Signs Temp Pulse Resp BP Pulse Ox 36.4 C L 86 22 H 147/79 H 96 07/01/19 13:00 07/01/19 14:15 07/01/19 14:15 07/01/19 13:00 07/01/19 14:15 Oxygen Flow Rate (L/min) 6 Oxygen Delivery Method Nasal Cannula Weight: 81.5 kg Body Mass Index (BMI) 26.6 Intake and Output for Last 24 Hours 06/29/19 06/30/19 07/01/19 23:59 23:59 23:59 Intake Total 305 / 305 Balance 305 / 305 General: Alert, Oriented x3, Cooperative, - - Moderate conversational dyspnea. Appears stated age. HEENT: Atraumatic, PERRLA, EOMI, Normocephalic, - - No scleral icterus or injection noted Oral: Moist Mucosa, No Gingival or Mucosal Lesions/ Ulcerations Neck: Supple, No JVD, No Nodes, Trachea Midline Lungs: No rhonchi, No rales, Diminished, Wheezes, - - Symmetric expansion. Cardiovascular: Regular rate, Regular Rhythm, Normal S1, Normal S2, Murmur - Grade 2 out of 6 diastolic murmur at the left sternal border, No rub noted, No Gallop Abdomen: Bowel Sounds Present, Soft, Non Tender, Non-Distended Extremities: No cyanosis, Clubbing, Edema - Trace to 1+ lower extremity Skin: No rashes, No breakdown, - - Significant dermal atrophy noted. Multiple bruises of various stages of healing. Musculoskeletal: No Tenderness to Palpation of Joints or Extremities Lymphatic: No Cervical, Supraclavicular, or Inguinal Adenopathy Neurological: Cranial nerves II-XII grossly intact, Neuro grossly intact, Motor Exam 5/5 strength throughout Psych/Mental Status: Appropriate, Anxious Microbiology Past 72 Hours 07/01/19 Unknown Mucosa - Nasopharyngeal Coronavirus COVID-19 PCR - Final SARS-CoV-2 (COVID 19) Laboratory Results 07/01/19 09:45: COVID-19 (CHARLIE) Cancelled 07/01/19 09:50: WBC 6.7, RBC 3.79 L, Hgb 12.0 L, Hct 39.4 L, MCV 104.0 H, MCH 31.7, MCHC 30.5 L, RDW Std Deviation 53.0 H, RDW Coeff of Delia 14.0, Plt Count 206, MPV 10.8, Immature Gran % (Auto) 0.600, Neut % (Auto) 66.7, Lymph % (Auto) 22.3, [place] % (Auto) 7.2, Eos % (Auto) 2.8, Baso % (Auto) 0.4, Absolute Neuts (auto) 4.5, Absolute Lymphs (auto) 1.49, Nucleated RBC % 0 07/01/19 09:50: PT 13.3, INR 1.1, APTT 29.4 07/01/19 09:50: Sodium 142, Potassium 3.5, Chloride 96 L, Carbon Dioxide > 45.0 H*, Anion Gap TNP, BUN 25 H, Creatinine 1.04, Estim Creat Clear Calc 54.76, Est GFR (MDRD) Af Amer 88, Est GFR (MDRD) Non-Af 73, BUN/Creatinine Ratio 24.0 H, Glucose 210 H, Calcium 9.2, Total Bilirubin 0.40, AST 13 L, ALT 13 L, Alkaline Phosphatase 119 H, Total Protein 7.0, Albumin 3.2, Globulin 3.8, Albumin/Globulin Ratio 0.8 L 07/01/19 09:50: Lactic Acid 1.0 07/01/19 09:50: Fibrinogen 449 H, D-Dimer Quant (PE/DVT) 1.60 H* 07/01/19 09:50: Lactate Dehydrogenase 179, Troponin I < 0.015, C-React Prot Ext Range < 2.90 07/01/19 09:50: Total Creatine Kinase 32 L 07/01/19 13:00: Urine Color Yellow, Urine Clarity Clear, Urine pH 7.0, Ur Specific [place] 1.010, Urine Protein Negative, Urine Glucose (UA) 250 H, Urine Ketones Negative, Urine Occult Blood Negative, Urine Nitrite Negative, Urine Bilirubin Negative, Urine Urobilinogen Normal, Ur Leukocyte Esterase Negative, Urine RBC 0 SEEN, Urine WBC 0 SEEN, Ur Squamous Epith Cells 0-5 SEEN, Urine Bacteria 0 SEEN, Urine Mucus 0 SEEN 07/01/19 13:05: POC Glucose 252 H Current Medications Acetaminophen (Tylenol) 650 mg PO Q6H PRN PRN PRN Reason: Pain Score 1-10/Temp > 100.7 F Albuterol Sulfate (Ventolin Hfa (Sp)) 2 puff INHALATION Q4H PRN PRN PRN Reason: SHORTNESS OF BREATH Amlodipine Besylate (Norvasc) 10 mg PO DAILY [facility] Aspirin (Aspirin, Baby) 81 mg PO DAILY [facility] Atorvastatin Calcium (Lipitor) 20 mg PO QHS [facility] Benzonatate (Tessalon Perle) 200 mg PO TID PRN PRN PRN Reason: cough Dextrose (D50w Syringe) 0 gm IV X1 PRN; Protocol PRN Reason: Hypoglycemia Enoxaparin Sodium (Lovenox) 80 mg SC BID [facility] Furosemide (Lasix) 20 mg IV X1 ONE Stop: 07/01/19 14:45 Glucagon () 1 mg IM .X1 PRN PRN Reason: Hypoglycemia Guaifenesin (Mucinex) 1,200 mg PO BID [facility] Ceftriaxone Sodium (Rocephin) 1 gm in 50 mls @ 100 mls/hr IV Q24 [facility] Azithromycin 500 mg/ Dextrose 255 mls @ 250 mls/hr IV Q24 [facility] Sodium Chloride () 250 mls @ 15 mls/hr IV .[id number] PRN PRN Reason: Saline Flush Sodium Chloride () 250 mls @ 15 mls/hr IV .[id number] PRN PRN Reason: Additional IVPB Infusion Insulin Human Lispro (Humalog Kwikpen (Bkc)) 0 unit SC ACHS [facility]; Protocol Methylprednisolone (Solu-Medrol) 40 mg IV Q8 [facility] Metoprolol Succinate (Toprol Xl (Beta Estevan)) 50 mg PO DAILY [facility] Non-Formulary Medication (Tiotropium [place]) 18 mcg inhalation DAILY [facility] Ondansetron HCl (Zofran) 4 mg IV Q8H PRN PRN PRN Reason: NAUSEA/VOMITING Potassium Chloride (K-Dur) 40 meq PO DAILYCM [facility] Sodium Chloride () 10 - 40 ml IV UD PRN PRN Reason: SALINE FLUSH Clinical Impression(s) from Imaging Studies Chest X-Ray 07/01/19 10:20 IMPRESSION: Small left pleural effusion with the left basilar infiltration and/or atelectasis as well as increased markings at the right lung base suggestive of atelectasis and/or infiltrate. Follow-up is recommended. Electronically Signed: Renan Domínguez, at 10:34 EDT , Service support , Assessment/Plan Active and Suspected Problems (Last Reviewed 03/13/19 @ 09:42 by Krystle Dumont NP-Bo) Hypoxia (Acute) Suspected COVID-19 virus infection (Acute) Community acquired bacterial pneumonia (Acute) COVID-19 (Acute) COPD exacerbation (Acute) RECOMMENDATIONS: 1. Obtain COVID-19 screening panel 2. Initiate systemic anticoagulation 3. [place] for convalescent plasma study 4. Close observation of blood sugar given concomitant steroids 5. Agree with empiric antibiotics until cultures are negative IMPRESSIONS: 1. Acute on chronic combined respiratory failure secondary to COVID infection/advanced COPD Patient with COVID positive testing noted today. Patient has had progressive hypoxia despite only day 2 of reported symptoms. Patient does have advanced COPD with an FEV1 of 37% of predicted. Agree with steroids given wheezing on exam. Reasonable to initiate with IV empiric antibiotics. Procalcitonin is pending. Will place patient on systemic anticoagulation. Given patient's CODE STATUS of DNR Comfort Care arrest without intubation, significant hypoxia and poor baseline pulmonary status, patient was enrolled for convalescent serum. Patient has been given an ID number of #[id number]. Blood bank has been notified. Patient does not wish to be intubated, but is open to BiPAP therapy if necessary 2. Type 2 diabetes mellitus, [id number] Patient only does not take insulin at baseline, but given systemic steroids, basal insulin may be indicated. We will continue to follow. Likely not necessary to get a hemoglobin A1c from my perspective. 3. Hypertension/CAD/PAD/carotid stenosis/advanced age/multiple admissions?exacerbations Complicates care, management, recovery and prognosis. Okay to continue with baseline medications from my perspective. May need to hold lisinopril pending renal function. Inpatient E&M: 10512 Init Hosp L3
[2019-07-01] MEDS: Insulin Lispro 100 UNIT/ML INSULN.PEN SC ×3 (15:31→21:40)
[2019-07-01 16:02] LABS: Procalcitonin 0.07 ng/mL (0.00-0.09)
[2019-07-01 17:21] LABS: Bedside Glucose 334 mg/dL (70-110)
[2019-07-01] MEDS: Furosemide 20 MG/2 ML VIAL IV (17:28)
[2019-07-01] MEDS: guaiFENesin 1,200 MG Tablet 1200 MG PO (21:41)
[2019-07-01] MEDS: Enoxaparin 80 MG/0.8 ML Syringe SC (21:41)
[2019-07-01] MEDS: Atorvastatin Calcium 20 MG Tablet PO (21:41)
[2019-07-01 21:50] LABS: Bedside Glucose 377 mg/dL (70-110)
--- NOTE | 2019-07-01 22:14 | CPS ---
increased to 55% for sats low 88-90%
[2019-07-02] VITALS (16 sets, daily range): BP systolic 106–143; BP diastolic 43–68; PULSE 74–90; RESP 18–20; TEMP 36.6–37.4; O2SAT 93–96
[2019-07-02 04:49] LABS: ALB/GLOB Ratio 0.7 RATIO (0.9-2.4); AST(SGOT) 12 U/L (15-37); Alanine Aminotransfer ALT/SGPT 13 U/L (16-61); Albumin, Serum 2.6 g/dL (3.2-5.0); Alkaline Phosphatase 102 U/L (45-117); Anion Gap 6 (5-15); BUN 31 mg/dL (7-18); BUN/Creat Ratio 28.4 RATIO (10-20); Calcium,Total 8.9 mg/dL (8.5-10.1); Chloride 93 mmol/L (98-107); Creatinine, Serum 1.09 mg/dL (0.70-1.30); EST Glomerular Filtration Rate 69 mL/min (>60); Est Glom Filt Rate - Afr Amer 83 mL/min (>60); Estimated Creatinine Clearance 50.55 ml/min; Globulin 3.5 g/dL (2.2-4.2); Glucose 288 mg/dL (74-106); Magnesium 1.7 mg/dL (1.6-2.6); Potassium 4.3 mmol/L (3.5-5.1); Protein, Total 6.1 g/dL (6.4-8.2); Sodium Level 138 mmol/L (136-145)
[2019-07-02 04:53] LABS: Absolute Lymphocyte Count 1.17 X10^3/uL (0.83-4.51); Absolute Neutrophil Count 5.1 X10^3/uL (2.0-7.7); Hematocrit 34.8 % (40-54); Hemoglobin 10.7 g/dL (13.0-16.5); Lymphocyte # 1.17 X10^3/ul (4.0); Lymphocyte % 17.2 % (19-41); Mean Corp Hgb Conc 30.7 g/dL (32-36); Mean Corpuscular Hgb 30.8 pg (27.0-32.0); Mean Corpuscular Volume 100.3 fL (80-94); Monocyte# 0.53 X10^3/uL; Monocyte% 7.8 % (0-10); NRBC Flagged by Analyzer 0 % (0-5); Neutrophil # 5.09 X10^3/uL (2.7-7.7); Neutrophil % 74.7 % (47-70); Platelet Count 214 K/mm3 (150-450); RBC Distribution Width CV 13.5 % (11.6-14.6); RBC Distribution Width SD 49.6 fl (35.1-43.9); Red Blood Count 3.47 M/mm3 (4.6-6.2); White Blood Count 6.8 K/mm3 (4.4-11.0)
--- NOTE | 2019-07-02 07:18 | PCM.PN.HOSP ---
Patient Problems: Active and Suspected Problems (Last Reviewed 03/13/19 @ 09:42 by CLAUDETTE Jeffery) Hypoxia (Acute) Suspected COVID-19 virus infection (Acute) Community acquired bacterial pneumonia (Acute) COVID-19 (Acute) COPD exacerbation (Acute) Reason for Visit: Follow-up on acute on chronic hypoxic respiratory failure/COVID-19 related pneumonia Subjective: Patient was seen and examined. He feels comfortable. On increased oxygen requirement; on 46L, Fio2 55%. Denies diarrhea, fever or chest pain Vitals/I&O's: Vital Signs Temp Pulse Resp BP Pulse Ox 99.3 F H 86 20 H 106/46 L 94 07/02/19 02:00 07/02/19 04:10 07/02/19 04:10 07/02/19 02:00 07/02/19 04:10 Oxygen Flow Rate (L/min) 50 Oxygen Delivery Method CPAP Weight: 81.2 kg Body Mass Index (BMI) 26.6 Intake and Output for Last 24 Hours 06/30/19 07/01/19 07/02/19 23:59 23:59 23:59 Intake Total 665 / 740 75 / 75 Output Total 225 / 1325 1275 / 1275 Balance 440 / -585 -1200 / -1200 General: Alert, Oriented x3, Cooperative, No apparent distress, - - on high flow oxygen, comfortable HEENT: Atraumatic, PERRLA, EOMI, Normocephalic Oral: Moist Mucosa Neck: Supple Lungs: Diminished Cardiovascular: Regular rate, Regular Rhythm, Normal S1, Normal S2, No murmurs Abdomen: Bowel Sounds Present, Soft, Non Tender, Non-Distended, No Hepato-splenomegaly Skin: No rashes, No breakdown Musculoskeletal: No Tenderness to Palpation of Joints or Extremities Neurological: Cranial nerves II-XII grossly intact Psych/Mental Status: Normal Affect, Appropriate Microbiology Past 72 Hours 07/01/19 Unknown Mucosa - Nasopharyngeal Coronavirus COVID-19 PCR - Final SARS-CoV-2 (COVID 19) Laboratory Results 07/01/19 09:45: COVID-19 (CHARLIE) Cancelled 07/01/19 09:50: WBC 6.7, RBC 3.79 L, Hgb 12.0 L, Hct 39.4 L, MCV 104.0 H, MCH 31.7, MCHC 30.5 L, RDW Std Deviation 53.0 H, RDW Coeff of Delia 14.0, Plt Count 206, MPV 10.8, Immature Gran % (Auto) 0.600, Neut % (Auto) 66.7, Lymph % (Auto) 22.3, [place] % (Auto) 7.2, Eos % (Auto) 2.8, Baso % (Auto) 0.4, Absolute Neuts (auto) 4.5, Absolute Lymphs (auto) 1.49, Nucleated RBC % 0 07/01/19 09:50: PT 13.3, INR 1.1, APTT 29.4 07/01/19 09:50: Sodium 142, Potassium 3.5, Chloride 96 L, Carbon Dioxide > 45.0 H*, Anion Gap TNP, BUN 25 H, Creatinine 1.04, Estim Creat Clear Calc 54.76, Est GFR (MDRD) Af Amer 88, Est GFR (MDRD) Non-Af 73, BUN/Creatinine Ratio 24.0 H, Glucose 210 H, Calcium 9.2, Total Bilirubin 0.40, AST 13 L, ALT 13 L, Alkaline Phosphatase 119 H, Total Protein 7.0, Albumin 3.2, Globulin 3.8, Albumin/Globulin Ratio 0.8 L 07/01/19 09:50: Lactic Acid 1.0 07/01/19 09:50: Fibrinogen 449 H, D-Dimer Quant (PE/DVT) 1.60 H* 07/01/19 09:50: Lactate Dehydrogenase 179, Troponin I < 0.015, C-React Prot Ext Range < 2.90 07/01/19 09:50: Total Creatine Kinase 32 L 07/01/19 13:00: Urine Color Yellow, Urine Clarity Clear, Urine pH 7.0, Ur Specific [place] 1.010, Urine Protein Negative, Urine Glucose (UA) 250 H, Urine Ketones Negative, Urine Occult Blood Negative, Urine Nitrite Negative, Urine Bilirubin Negative, Urine Urobilinogen Normal, Ur Leukocyte Esterase Negative, Urine RBC 0 SEEN, Urine WBC 0 SEEN, Ur Squamous Epith Cells 0-5 SEEN, Urine Bacteria 0 SEEN, Urine Mucus 0 SEEN 07/01/19 13:05: POC Glucose 252 H 07/01/19 14:00: Procalcitonin 0.07 07/01/19 14:00: Blood Type O POSITIVE, Antibody Screen NEGATIVE 07/01/19 17:12: POC Glucose 334 H 07/01/19 21:39: POC Glucose 377 H 07/02/19 04:10: WBC 6.8, RBC 3.47 L, Hgb 10.7 L, Hct 34.8 L, MCV 100.3 H, MCH 30.8, MCHC 30.7 L, RDW Std Deviation 49.6 H, RDW Coeff of Delia 13.5, Plt Count 214, MPV 11.0, Immature Gran % (Auto) 0.300, Neut % (Auto) 74.7 H, Lymph % (Auto) 17.2 L, [place] % (Auto) 7.8, Eos % (Auto) 0.0, Baso % (Auto) 0.0, Absolute Neuts (auto) 5.1, Absolute Lymphs (auto) 1.17, Nucleated RBC % 0 07/02/19 04:10: Sodium 138, Potassium 4.3, Chloride 93 L, Carbon Dioxide 39.0 H, Anion Gap 6, BUN 31 H, Creatinine 1.09, Estim Creat Clear Calc 50.55, Est GFR (MDRD) Af Amer 83, Est GFR (MDRD) Non-Af 69, BUN/Creatinine Ratio 28.4 H, Glucose 288 H, Calcium 8.9, Magnesium 1.7, Total Bilirubin 0.40, AST 12 L, ALT 13 L, Alkaline Phosphatase 102, Total Protein 6.1 L, Albumin 2.6 L, Globulin 3.5, Albumin/Globulin Ratio 0.7 L Current Medications Acetaminophen (Tylenol) 650 mg PO Q6H PRN PRN PRN Reason: Pain Score 1-10/Temp > 100.7 F Albuterol Sulfate (Ventolin Hfa (Sp)) 2 puff INHALATION Q4H PRN PRN PRN Reason: SHORTNESS OF BREATH Amlodipine Besylate (Norvasc) 10 mg PO DAILY COUNT INCLUDES THE [facility] Aspirin (Aspirin, Baby) 81 mg PO DAILY COUNT INCLUDES THE [facility] Atorvastatin Calcium (Lipitor) 20 mg PO QHS COUNT INCLUDES THE [facility] Last Admin: 07/01/19 21:41 Dose: 20 mg Documented by: Benzonatate (Tessalon Perle) 200 mg PO TID PRN PRN PRN Reason: cough Dextrose (D50w Syringe) 0 gm IV X1 PRN; Protocol PRN Reason: Hypoglycemia Enoxaparin Sodium (Lovenox) 80 mg SC BID COUNT INCLUDES THE [facility] Last Admin: 07/01/19 21:41 Dose: 80 mg Documented by: Glucagon () 1 mg IM .X1 PRN PRN Reason: Hypoglycemia Guaifenesin (Mucinex) 1,200 mg PO BID COUNT INCLUDES THE [facility] Last Admin: 07/01/19 21:41 Dose: 1,200 mg Documented by: Ceftriaxone Sodium (Rocephin) 1 gm in 50 mls @ 100 mls/hr IV Q24 COUNT INCLUDES THE [facility] Azithromycin 500 mg/ Dextrose 255 mls @ 250 mls/hr IV Q24 COUNT INCLUDES THE [facility] Sodium Chloride () 250 mls @ 15 mls/hr IV .[id number] PRN PRN Reason: Saline Flush Sodium Chloride () 250 mls @ 15 mls/hr IV .[id number] PRN PRN Reason: Additional IVPB Infusion Insulin Human Lispro (Humalog Kwikpen (Bkc)) 0 unit SC ACHS COUNT INCLUDES THE [facility]; Protocol Last Admin: 07/01/19 21:40 Dose: 4 u Documented by: Methylprednisolone (Solu-Medrol) 40 mg IV Q8 COUNT INCLUDES THE [facility] Last Admin: 07/02/19 05:16 Dose: 40 mg Documented by: Metoprolol Succinate (Toprol Xl (Beta Estevan)) 50 mg PO DAILY COUNT INCLUDES THE [facility] Ondansetron HCl (Zofran) 4 mg IV Q8H PRN PRN PRN Reason: NAUSEA/VOMITING Potassium Chloride ([facility]Dur) [facility] Last Admin: 07/01/19 17:28 Dose: 40 meq Documented by: Sodium Chloride () 10 - 40 ml IV UD PRN PRN Reason: SALINE FLUSH Umeclidinium [place] (Incruse Ellipta Inhaler) 1 puff IH DAILY COUNT INCLUDES THE [facility] STROKE Vital Signs/Narrative: Vital Signs Pulse Resp Pulse Ox 07/02/19 04:10 86 20 H 94 07/02/19 04:00 85 Medical Necessity - Tobacco Use Smoking Status: Former smoker Tobacco Use: Non-smoker Assessment/Plan All Active Problems (Last Reviewed 03/13/19 @ 09:42 by Krystle Dumont NP-C) Hypoxia (Acute) Bronchitis (Acute) Suspected COVID-19 virus infection (Acute) Community acquired bacterial pneumonia (Acute) COVID-19 (Acute) History of pneumonia (Acute) History of bronchitis (Acute) Hx of appendectomy (Resolved) COPD exacerbation (Acute) 83 year old M with past medical history of COPD with chronic hypoxic respiratory failure on 4 L of oxygen, hypertension, type II DM, CAD status post stents, PAD, who comes in with complaints of shortness of breath ongoing for 2 days. 1. Acute on chronic respiratory failure secondary to acute COVID infection/pneumonia, on increased oxygen requirements Patient is on 4 L of oxygen at baseline D-dimer is elevated; will hold off on doing CT of the chest for now We will continue on IV empiric antibiotics, inhaler, IV steroids Pulmonology consulted 2. Acute COVID pneumonia, SIRS?CO VID?19 test positive D-dimer elevated at 1.60; will hold off on doing CTA of the chest for now Lactic acid is 1.0, Procalcitonin 0.07, CRP ,2.90 Skin Care Technician consulted Will check CRP, lactic acid, procalcitonin, LDH, fibrinogen, 3. Hypomagnesemia, replaced, recheck in am 4. Type 2 DM, on oral hypoglycemics, will hold these for now, Continue with blood glucose checks and insulin sliding scale 5. Hypertension, controlled Continue on amlodipine We will hold lisinopril/hydrochlorothiazide for now 6. CAD s/p stents/carotid stenosis/PAD, continue on aspirin 7. DVT prophylaxis with therapeutic Lovenox 8. Code status: DNR-CCA Inpatient E&M: 19629 Subs Hosp L2
--- NOTE | 2019-07-02 08:45 | PCM.PN.PUL ---
Patient Problems: Active and Suspected Problems (Last Reviewed 03/13/19 @ 09:42 by CLAUDETTE Jeffery) Hypoxia (Acute) Suspected COVID-19 virus infection (Acute) Community acquired bacterial pneumonia (Acute) COVID-19 (Acute) COPD exacerbation (Acute) Subjective: Patient did well overnight. Patient subjectively unchanged compared to previous. Patient has required 55% high flow oxygen to maintain saturations, but otherwise has remained hemodynamically stable. Patient is not reporting any chest pain this morning. - Physical Exam Vitals/I&O's: Vital Signs Temp Pulse Resp BP Pulse Ox 37.4 C H 86 20 H 106/46 L 94 07/02/19 02:00 07/02/19 04:10 07/02/19 04:10 07/02/19 02:00 07/02/19 08:15 Oxygen Flow Rate (L/min) 50 Oxygen Delivery Method CPAP Weight: 81.2 kg Body Mass Index (BMI) 26.6 Intake and Output for Last 24 Hours 06/30/19 07/01/19 07/02/19 23:59 23:59 23:59 Intake Total 665 / 740 75 / 75 Output Total 225 / 1325 1275 / 1275 Balance 440 / -585 -1200 / -1200 General: Alert, Oriented x3, Cooperative, No apparent distress - Mild conversational dyspnea HEENT: Atraumatic, PERRLA, EOMI, Normocephalic, - - No scleral icterus or injection noted Oral: Moist Mucosa, No Gingival or Mucosal Lesions/ Ulcerations Neck: Supple, No JVD, No Nodes, Trachea Midline Lungs: No rhonchi, No rales, Diminished, Wheezes, - - Symmetric expansion Cardiovascular: Regular rate, Regular Rhythm, Normal S1, Normal S2, No murmurs, No rub noted, No Gallop Abdomen: Bowel Sounds Present, Soft, Non Tender, Non-Distended Extremities: No cyanosis, No edema, Capillary Refill Less than 3 Seconds, Clubbing Skin: - - No significant change compared to previous Musculoskeletal: No Tenderness to Palpation of Joints or Extremities Lymphatic: No Cervical, Supraclavicular, or Inguinal Adenopathy Neurological: Cranial nerves II-XII grossly intact, Neuro grossly intact, Motor Exam 5/5 strength throughout Psych/Mental Status: Alert and oriented to time, place, person, mood and affect Microbiology Past 72 Hours 07/01/19 Unknown Mucosa - Nasopharyngeal Coronavirus COVID-19 PCR - Final SARS-CoV-2 (COVID 19) Laboratory Results 07/01/19 09:45: COVID-19 (CHARLIE) Cancelled 07/01/19 09:50: WBC 6.7, RBC 3.79 L, Hgb 12.0 L, Hct 39.4 L, MCV 104.0 H, MCH 31.7, MCHC 30.5 L, RDW Std Deviation 53.0 H, RDW Coeff of Delia 14.0, Plt Count 206, MPV 10.8, Immature Gran % (Auto) 0.600, Neut % (Auto) 66.7, Lymph % (Auto) 22.3, [place] % (Auto) 7.2, Eos % (Auto) 2.8, Baso % (Auto) 0.4, Absolute Neuts (auto) 4.5, Absolute Lymphs (auto) 1.49, Nucleated RBC % 0 07/01/19 09:50: PT 13.3, INR 1.1, APTT 29.4 07/01/19 09:50: Sodium 142, Potassium 3.5, Chloride 96 L, Carbon Dioxide > 45.0 H*, Anion Gap TNP, BUN 25 H, Creatinine 1.04, Estim Creat Clear Calc 54.76, Est GFR (MDRD) Af Amer 88, Est GFR (MDRD) Non-Af 73, BUN/Creatinine Ratio 24.0 H, Glucose 210 H, Calcium 9.2, Total Bilirubin 0.40, AST 13 L, ALT 13 L, Alkaline Phosphatase 119 H, Total Protein 7.0, Albumin 3.2, Globulin 3.8, Albumin/Globulin Ratio 0.8 L 07/01/19 09:50: Lactic Acid 1.0 07/01/19 09:50: Fibrinogen 449 H, D-Dimer Quant (PE/DVT) 1.60 H* 07/01/19 09:50: Lactate Dehydrogenase 179, Troponin I < 0.015, C-React Prot Ext Range < 2.90 07/01/19 09:50: Total Creatine Kinase 32 L 07/01/19 13:00: Urine Color Yellow, Urine Clarity Clear, Urine pH 7.0, Ur Specific [place] 1.010, Urine Protein Negative, Urine Glucose (UA) 250 H, Urine Ketones Negative, Urine Occult Blood Negative, Urine Nitrite Negative, Urine Bilirubin Negative, Urine Urobilinogen Normal, Ur Leukocyte Esterase Negative, Urine RBC 0 SEEN, Urine WBC 0 SEEN, Ur Squamous Epith Cells 0-5 SEEN, Urine Bacteria 0 SEEN, Urine Mucus 0 SEEN 07/01/19 13:05: POC Glucose 252 H 07/01/19 14:00: Procalcitonin 0.07 07/01/19 14:00: Blood Type O POSITIVE, Antibody Screen NEGATIVE 07/01/19 17:12: POC Glucose 334 H 07/01/19 21:39: POC Glucose 377 H 07/02/19 04:10: WBC 6.8, RBC 3.47 L, Hgb 10.7 L, Hct 34.8 L, MCV 100.3 H, MCH 30.8, MCHC 30.7 L, RDW Std Deviation 49.6 H, RDW Coeff of Delia 13.5, Plt Count 214, MPV 11.0, Immature Gran % (Auto) 0.300, Neut % (Auto) 74.7 H, Lymph % (Auto) 17.2 L, [place] % (Auto) 7.8, Eos % (Auto) 0.0, Baso % (Auto) 0.0, Absolute Neuts (auto) 5.1, Absolute Lymphs (auto) 1.17, Nucleated RBC % 0 07/02/19 04:10: Sodium 138, Potassium 4.3, Chloride 93 L, Carbon Dioxide 39.0 H, Anion Gap 6, BUN 31 H, Creatinine 1.09, Estim Creat Clear Calc 50.55, Est GFR (MDRD) Af Amer 83, Est GFR (MDRD) Non-Af 69, BUN/Creatinine Ratio 28.4 H, Glucose 288 H, Calcium 8.9, Magnesium 1.7, Total Bilirubin 0.40, AST 12 L, ALT 13 L, Alkaline Phosphatase 102, Total Protein 6.1 L, Albumin 2.6 L, Globulin 3.5, Albumin/Globulin Ratio 0.7 L Current Medications Acetaminophen (Tylenol) 650 mg PO Q6H PRN PRN PRN Reason: Pain Score 1-10/Temp > 100.7 F Albuterol Sulfate (Ventolin Hfa (Sp)) 2 puff INHALATION Q4H PRN PRN PRN Reason: SHORTNESS OF BREATH Amlodipine Besylate (Norvasc) 10 mg PO DAILY [facility] Aspirin (Aspirin, Baby) 81 mg PO DAILY [facility] Atorvastatin Calcium (Lipitor) 20 mg PO QHS [facility] Last Admin: 07/01/19 21:41 Dose: 20 mg Documented by: Benzonatate (Tessalon Perle) 200 mg PO TID PRN PRN PRN Reason: cough Dextrose (D50w Syringe) 0 gm IV X1 PRN; Protocol PRN Reason: Hypoglycemia Enoxaparin Sodium (Lovenox) 80 mg SC BID [facility] Last Admin: 07/01/19 21:41 Dose: 80 mg Documented by: Glucagon () 1 mg IM .X1 PRN PRN Reason: Hypoglycemia Guaifenesin (Mucinex) 1,200 mg PO BID [facility] Last Admin: 07/01/19 21:41 Dose: 1,200 mg Documented by: Ceftriaxone Sodium (Rocephin) 1 gm in 50 mls @ 100 mls/hr IV Q24 [facility] Azithromycin 500 mg/ Dextrose 255 mls @ 250 mls/hr IV Q24 [facility] Sodium Chloride () 250 mls @ 15 mls/hr IV .[id number] PRN PRN Reason: Saline Flush Sodium Chloride () 250 mls @ 15 mls/hr IV .[id number] PRN PRN Reason: Additional IVPB Infusion Magnesium Sulfate 2 gm/ Sodium (Chloride) 104 mls @ 52 mls/hr IV X1 ONE Stop: 07/02/19 09:29 Insulin Human Lispro (Humalog Kwikpen (Bkc)) 0 unit SC ACHS [facility]; Protocol Last Admin: 07/01/19 21:40 Dose: 4 u Documented by: Methylprednisolone (Solu-Medrol) 40 mg IV Q8 [facility] Last Admin: 07/02/19 05:16 Dose: 40 mg Documented by: Metoprolol Succinate (Toprol Xl (Beta Estevan)) 50 mg PO DAILY [facility] Ondansetron HCl (Zofran) 4 mg IV Q8H PRN PRN PRN Reason: NAUSEA/VOMITING Potassium [facility] ([facility]) [facility] Last Admin: 07/01/19 17:28 Dose: 40 meq Documented by: Sodium Chloride () 10 - 40 ml IV UD PRN PRN Reason: SALINE FLUSH Umeclidinium [place] (Incruse Ellipta Inhaler) 1 puff IH DAILY [facility] Clinical Impression(s) from Imaging Studies Chest X-Ray 07/01/19 10:20 IMPRESSION: Small left pleural effusion with the left basilar infiltration and/or atelectasis as well as increased markings at the right lung base suggestive of atelectasis and/or infiltrate. Follow-up is recommended. Electronically Signed: Renan Domínguez, at 10:34 EDT , Service support , Medical Necessity - Tobacco Use Smoking Status: Former smoker Tobacco Use: Non-smoker Assessment/Plan All Active Problems (Last Reviewed 03/13/19 @ 09:42 by Krystle Dumont NP-Bo) Hypoxia (Acute) Bronchitis (Acute) Suspected COVID-19 virus infection (Acute) Community acquired bacterial pneumonia (Acute) COVID-19 (Acute) History of pneumonia (Acute) History of bronchitis (Acute) Hx of appendectomy (Resolved) COPD exacerbation (Acute) RECOMMENDATIONS: 1. Await convalescent plasma 2. Initiate systemic anticoagulation 3. Wean oxygen as tolerated. Keep saturations 90 to 94% to avoid CO2 retention 4. Close observation of blood sugar given concomitant steroids 5. Likely okay to discontinue antibiotics once culture negative. Pro calcitonin low IMPRESSIONS: 1. Acute on chronic combined respiratory failure secondary to COVID infection/advanced COPD Patient with COVID positive testing noted today. Patient has had progressive hypoxia despite only day 2 of reported symptoms. Patient does have advanced COPD with an FEV1 of 37% of predicted. Agree with steroids given wheezing on exam. Reasonable to initiate with IV empiric antibiotics. Procalcitonin is pending. Will place patient on systemic anticoagulation. Given patient's CODE STATUS of DNR Comfort Care arrest without intubation, significant hypoxia and poor baseline pulmonary status, patient was enrolled for convalescent serum. Patient has been given an ID number of #[id number]. Blood bank has been notified. Patient does not wish to be intubated, but is open to BiPAP therapy if necessary 2. Type 2 diabetes mellitus, [id number] Patient only does not take insulin at baseline, but given systemic steroids, basal insulin may be indicated. We will continue to follow. Likely not necessary to get a hemoglobin A1c from my perspective. 3. Hypertension/CAD/PAD/carotid stenosis/advanced age/multiple admissions?exacerbations Complicates care, management, recovery and prognosis. Okay to continue with baseline medications from my perspective. Likely okay to continue with CHIQUIS inhibitor as renal function has remained stable Inpatient E&M: [id number] [facility] Hosp L3
[2019-07-02] MEDS: Metoprolol(XL)Succ 50 MG Tablet PO (08:47)
[2019-07-02] MEDS: amLODIPine 10 MG Tablet PO (08:47)
[2019-07-02] MEDS: Enoxaparin 80 MG/0.8 ML Syringe SC ×2 (08:48→21:04)
[2019-07-02] MEDS: Ceftriaxone 1 GM/50 ML BAG IV (08:48)
[2019-07-02] MEDS: guaiFENesin 1,200 MG Tablet 1200 MG PO ×2 (08:48→21:04)
[2019-07-02] MEDS: Aspirin 81 MG TAB.CHEW PO (08:48)
[2019-07-02] MEDS: Insulin Lispro 100 UNIT/ML INSULN.PEN SC ×4 (08:49→21:04)
[2019-07-02 11:46] LABS: Bedside Glucose 272 mg/dL (70-110)
--- NOTE | 2019-07-02 14:31 | CASEMGMT ---
ANDRE CHANDLER assessment: Phone interview with patient's son for initial transition planning/care coordination assessment. Pt is currently on bipap and is hard of hearing so call to son, Brandon Christine, for assessment at this time. ANDRE CHANDLER introduced self and role at [facility], son voices understanding and consents to assessment at this time. Care providers, pharmacy, and demographics verified at this time. 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 LNOK: Brandon Christine, carlos Living Arrangements: Pt lives with son, Rosario Christine, who assists pt with ADL's, if needed. Pt and son live in ranch home with 2-3steps in and states no concerns for pt at home. Pt is normally indepedent with ADL's. Per Brandon, his brother is in quarantine at home and is aware to stay that way. Brandon also states that pt can be quarantined once home and that him and his can assist with supplies. Transportation: Pt was driving self up to 3-4 wks ago or sons can drive and states no transportation concerns at this time. DME/HHC: Pt has the following DME: walker, w/c, grab bars, shower chair, pulse ox, and home oxygen thru [facility] medical 4liters at rest and 6liters with ambulation. Per son, pt has not had HHC or SNF in the past. Son states that he would not want pt to go to SNF but they would be agreeable to HHC at discharge, if necessary. Son states no concerns with pt going home at time of discharge. Pt is retired. Pt quit smoking about 20 years ago and does not drink ETOH. Son voices no further concerns/needs at this time. CM to follow PT/OT and for any further discharge planning/needs. Advised son to ask for CM if any further questions/concerns/needs arise, voices understanding. Pt Goal: Home Plan: Home w/ HHC, pending PT/OT. [place] ANDRE CHANDLER
[2019-07-02] MEDS: Furosemide 20 MG Tablet PO (14:43)
[2019-07-02] MEDS: Umeclidinium Bromide Inhaler 1 PUFF IH (14:47)
[2019-07-02 16:26] LABS: Bedside Glucose 300 mg/dL (70-110)
[2019-07-02] MEDS: 0.9% Saline Lock 10 ML Syringe IV (20:52)
[2019-07-02] MEDS: Atorvastatin Calcium 20 MG Tablet PO (21:03)
[2019-07-03] VITALS (14 sets, daily range): BP systolic 118–142; BP diastolic 39–50; PULSE 70–94; RESP 16–25; TEMP 37.1–37.4; O2SAT 92–97
[2019-07-03 02:26] LABS: Bedside Glucose 352 mg/dL (70-110)
[2019-07-03] MEDS: 0.9% Saline Lock 10 ML Syringe IV ×2 (04:48→21:34)
[2019-07-03 05:08] LABS: Absolute Lymphocyte Count 0.93 X10^3/uL (0.83-4.51); Absolute Neutrophil Count 7.2 X10^3/uL (2.0-7.7); Basophil# 0.01 X10^3/uL; Basophil% 0.1 % (0-1); Hematocrit 33.8 % (40-54); Hemoglobin 10.4 g/dL (13.0-16.5); Lymphocyte # 0.93 X10^3/ul (4.0); Mean Corp Hgb Conc 30.8 g/dL (32-36); Mean Corpuscular Hgb 30.8 pg (27.0-32.0); Mean Platelet Vol. 11.1 fl (6.2-12.0); Monocyte# 0.23 X10^3/uL; Monocyte% 2.7 % (0-10); NRBC Flagged by Analyzer 0 % (0-5); Neutrophil # 7.19 X10^3/uL (2.7-7.7); Neutrophil % 85.4 % (47-70); Platelet Count 210 K/mm3 (150-450); RBC Distribution Width CV 13.7 % (11.6-14.6); RBC Distribution Width SD 50.2 fl (35.1-43.9); Red Blood Count 3.38 M/mm3 (4.6-6.2); White Blood Count 8.4 K/mm3 (4.4-11.0)
[2019-07-03 05:25] LABS: ALB/GLOB Ratio 0.9 RATIO (0.9-2.4); AST(SGOT) 13 U/L (15-37); Alanine Aminotransfer ALT/SGPT 17 U/L (16-61); Alkaline Phosphatase 101 U/L (45-117); Anion Gap 6 (5-15); BUN 34 mg/dL (7-18); BUN/Creat Ratio 29.6 RATIO (10-20); Calcium,Total 8.7 mg/dL (8.5-10.1); Chloride 90 mmol/L (98-107); Creatinine, Serum 1.15 mg/dL (0.70-1.30); EST Glomerular Filtration Rate 65 mL/min (>60); Est Glom Filt Rate - Afr Amer 78 mL/min (>60); Estimated Creatinine Clearance 47.91 ml/min; Globulin 3.3 g/dL (2.2-4.2); Glucose 324 mg/dL (74-106); Magnesium 2.1 mg/dL (1.6-2.6); Potassium 4.3 mmol/L (3.5-5.1); Protein, Total 6.3 g/dL (6.4-8.2); Sodium Level 137 mmol/L (136-145)
--- NOTE | 2019-07-03 07:26 | PN_ITS ---
Patient Problems: Active and Suspected Problems (Last Reviewed 03/13/19 @ 09:42 by Krystle Dumont NP-Bo) Hypoxia (Acute) Suspected COVID-19 virus infection (Acute) Community acquired bacterial pneumonia (Acute) COVID-19 (Acute) COPD exacerbation (Acute) Reason for Visit: Follow-up on acute on chronic hypoxic respiratory failure/Acute COVID-19 pneumonia/COPD exacerbation Subjective: Patient was seen and examined. He feels the same. No acute events overnight. Denies any worsening respiratory symptoms. His oxygen flow rate has increased to 55L on Fio2 55%. Objective: Physical exam: General: Alert, Oriented x3, Cooperative, No apparent distress, - - on high flow oxygen, comfortable HEENT: Atraumatic, PERRLA, EOMI, Normocephalic Oral: Moist Mucosa Neck: Supple Lungs: Diminished Cardiovascular: Regular rate, Regular Rhythm, Normal S1, Normal S2, No murmurs Abdomen: Bowel Sounds Present, Soft, Non Tender, Non-Distended, No Hepato- splenomegaly Skin: No rashes, No breakdown Musculoskeletal: No Tenderness to Palpation of Joints or Extremities Neurological: Cranial nerves II-XII grossly intact Psych/Mental Status: Normal Affect, Appropriate Vitals/I&O's: Vital Signs Temp Pulse Resp BP Pulse Ox 98.9 F 81 18 134/45 H 93 07/03/19 03:00 07/03/19 03:23 07/03/19 03:00 07/03/19 03:00 07/03/19 03:00 Oxygen Flow Rate (L/min) 50 Oxygen Delivery Method Nasal Cannula Weight: 79.7 kg Body Mass Index (BMI) 26.6 Intake and Output for Last 24 Hours 07/01/19 07/02/19 07/03/19 23:59 23:59 23:59 Intake Total 665 / 740 844 / 1084 360 / 360 Output Total 225 / 1325 1675 / 2475 1300 / 1300 Balance 440 / -585 -831 / -1391 -940 / -940 Microbiology Past 72 Hours 07/01/19 Unknown Mucosa - Nasopharyngeal Coronavirus COVID-19 PCR - Final SARS-CoV-2 (COVID 19) Laboratory Results 07/02/19 11:31: POC Glucose 272 H 07/02/19 14:41: POC Glucose 300 H 07/02/19 20:47: POC Glucose 352 H 07/03/19 04:55: WBC 8.4, RBC 3.38 L, Hgb 10.4 L, Hct 33.8 L, MCV 100.0 H, MCH 30.8, MCHC 30.8 L, RDW Std Deviation 50.2 H, RDW Coeff of Delia 13.7, Plt Count 210, MPV 11.1, Immature Gran % (Auto) 0.800, Neut % (Auto) 85.4 H, Lymph % (Auto) 11.0 L, [place] % (Auto) 2.7, Eos % (Auto) 0.0, Baso % (Auto) 0.1, Absolute Neuts (auto) 7.2, Absolute Lymphs (auto) 0.93, Nucleated RBC % 0 07/03/19 04:55: Sodium 137, Potassium 4.3, Chloride 90 L, Carbon Dioxide 41.0 H, Anion Gap 6, BUN 34 H, Creatinine 1.15, Estim Creat Clear Calc 47.91, Est GFR (MDRD) Af Amer 78, Est GFR (MDRD) Non-Af 65, BUN/Creatinine Ratio 29.6 H, Glucose 324 H, Calcium 8.7, Magnesium 2.1, Total Bilirubin 0.50, AST 13 L, ALT 17, Alkaline Phosphatase 101, Total Protein 6.3 L, Albumin 3.0 L, Globulin 3.3, Albumin/Globulin Ratio 0.9 Current Medications Acetaminophen (Tylenol) 650 mg PO Q6H PRN PRN PRN Reason: Pain Score 1-10/Temp > 100.7 F Albuterol Sulfate (Ventolin Hfa (Sp)) 2 puff INHALATION Q4H PRN PRN PRN Reason: SHORTNESS OF BREATH Amlodipine Besylate (Norvasc) 10 mg PO DAILY [facility] Last Admin: 07/02/19 08:47 Dose: 10 mg Documented by: Aspirin (Aspirin, Baby) 81 mg PO DAILY [facility] Last Admin: 07/02/19 08:48 Dose: 81 mg Documented by: Atorvastatin Calcium (Lipitor) 20 mg PO QHS [facility] Last Admin: 07/02/19 21:03 Dose: 20 mg Documented by: Benzonatate (Tessalon Perle) 200 mg PO TID PRN PRN PRN Reason: cough Dextrose (D50w Syringe) 0 gm IV X1 PRN; Protocol PRN Reason: Hypoglycemia Enoxaparin Sodium (Lovenox) 80 mg SC BID [facility] Last Admin: 07/02/19 21:04 Dose: 80 mg Documented by: Furosemide (Lasix) 20 mg PO DAILY [facility] Last Admin: 07/02/19 14:43 Dose: 20 mg Documented by: Glucagon () 1 mg IM .X1 PRN PRN Reason: Hypoglycemia Guaifenesin (Mucinex) 1,200 mg PO BID [facility] Last Admin: 07/02/19 21:04 Dose: 1,200 mg Documented by: Ceftriaxone Sodium (Rocephin) 1 gm in 50 mls @ 100 mls/hr IV Q24 [facility] Last Infusion: 07/02/19 09:31 Dose: Infused Documented by: Azithromycin 500 mg/ Dextrose 255 mls @ 250 mls/hr IV Q24 [facility] Last Infusion: 07/02/19 11:13 Dose: Infused Documented by: Sodium Chloride () 250 mls @ 15 mls/hr IV .[id number] PRN PRN Reason: Saline Flush Sodium Chloride () 250 mls @ 15 mls/hr IV .[id number] PRN PRN Reason: Additional IVPB Infusion Insulin Glargine (Lantus (Bkc)) 10 units SC DAILY [facility] Insulin Human Lispro (Humalog Kwikpen (Bkc)) 0 unit SC ACHS [facility]; Protocol Last Admin: 07/02/19 21:04 Dose: 4 u Documented by: Methylprednisolone (Solu-Medrol) 40 mg IV Q8 [facility] Last Admin: 07/03/19 04:57 Dose: 40 mg Documented by: Metoprolol Succinate (Toprol Xl (Beta Estevan)) 50 mg PO DAILY [facility] Last Admin: 07/02/19 08:47 Dose: 50 mg Documented by: Ondansetron HCl (Zofran) 4 mg IV Q8H PRN PRN PRN Reason: NAUSEA/VOMITING Potassium Chloride (K-Dur) 40 meq PO DAILYCM [facility] Last Admin: 07/02/19 08:47 Dose: 40 meq Documented by: Sodium Chloride () 10 - 40 ml IV UD PRN PRN Reason: SALINE FLUSH Last Admin: 07/03/19 04:48 Dose: 10 ml Documented by: Umeclidinium [place] (Incruse Ellipta Inhaler) 1 puff IH DAILY [facility] Last Admin: 07/02/19 14:47 Dose: 1 puff Documented by: Medical Necessity - Tobacco Use Smoking Status: Former smoker Tobacco Use: Non-smoker Assessment/Plan All Active Problems (Last Reviewed 03/13/19 @ 09:42 by Krystle Dumont NP-C) Hypoxia (Acute) Bronchitis (Acute) Suspected COVID-19 virus infection (Acute) Community acquired bacterial pneumonia (Acute) COVID-19 (Acute) History of pneumonia (Acute) History of bronchitis (Acute) Hx of appendectomy (Resolved) COPD exacerbation (Acute) 83 year old M with past medical history of COPD with chronic hypoxic respiratory failure on 4 L of oxygen, hypertension, type II DM, CAD status post stents, PAD, who comes in with complaints of shortness of breath ongoing for 2 days. 1. Acute on chronic respiratory failure secondary to acute COVID infection/pneumonia/Possible acute COPD exacerbation, Remains on increased oxygen requirements. Patient was on 4 L of oxygen at baseline Will continue to wean off oxygen as tolerated. Pulmonology following. 2. Acute COVID related pneumonia, SARS?COVID?19 test positive D-dimer elevated at 1.60; will hold off on doing CTA of the chest for now Lactic acid was 1.0, Procalcitonin 0.07, CRP ,2.90 on admission Stockroom Selector and ID consulted Off empiric antibiotics Convalescent plasma ordered by pulmonology. 3. Possible Acute COPD exacerbation secondary to #2 On IV methylprednisone tapered down to 40mg IV BID Albuterol inhaler prn 4. Hypomagnesemia, replaced, recheck in am 5. Type 2 DM, BS are uncontrolled secondary to IV steroids. HgBA1c is 7.7, Started on Lantus 10 units QHS Patient was off oral hypoglycemics; will resume these - Actos and glimepiride but continue to hold off metformin Continue with blood glucose checks and insulin sliding scale 6. Hypertension, controlled Continue on amlodipine We will continue to hold lisinopril/hydrochlorothiazide for now 7. CAD s/p stents/carotid stenosis/PAD, continue on aspirin 8. DVT prophylaxis with therapeutic Lovenox 9. Code status: DNR-CCA Inpatient E&M: 83324 Subs Hosp L2
[2019-07-03] MEDS: Insulin Lispro 100 UNIT/ML INSULN.PEN SC ×3 (08:01→21:32)
[2019-07-03 08:10] LABS: Bedside Glucose 282 mg/dL (70-110)
--- NOTE | 2019-07-03 08:19 | PCM.PN.PUL ---
Patient Problems: Active and Suspected Problems (Last Reviewed 03/13/19 @ 09:42 by Krystle Dumont NP-Bo) Hypoxia (Acute) Suspected COVID-19 virus infection (Acute) Community acquired bacterial pneumonia (Acute) COVID-19 (Acute) COPD exacerbation (Acute) Subjective: Patient did okay overnight. Patient has been around 50% FiO2 to maintain saturations, but feels overall that his respiratory status is unchanged compared to yesterday. Nursing reports patient's blood sugars have been elevated, but otherwise he has remained hemodynamically stable. Objective: Convalescent serum was ordered 2 days ago. No feedback on timetable. - Physical Exam Vitals/I&O's: Vital Signs Temp Pulse Resp BP Pulse Ox 37.2 C 81 18 134/45 H 93 07/03/19 03:00 07/03/19 03:23 07/03/19 03:00 07/03/19 03:00 07/03/19 03:00 Oxygen Flow Rate (L/min) 50 Oxygen Delivery Method Nasal Cannula Weight: 79.7 kg Body Mass Index (BMI) 26.6 Intake and Output for Last 24 Hours 07/01/19 07/02/19 07/03/19 23:59 23:59 23:59 Intake Total 665 / 740 844 / 1084 360 / 360 Output Total 225 / 1325 1675 / 2475 1300 / 1300 Balance 440 / -585 -831 / -1391 -940 / -940 General: Alert, Oriented x3, Cooperative, No apparent distress, - - Mild conversational dyspnea. Tolerating high flow nasal cannula well HEENT: Atraumatic, PERRLA, EOMI, Normocephalic, - - No scleral icterus or injection noted Oral: Moist Mucosa, No Gingival or Mucosal Lesions/ Ulcerations Neck: Supple, No JVD, No Nodes, Trachea Midline Lungs: No rhonchi, No rales, Diminished, Wheezes, - - Symmetric expansion Cardiovascular: Regular rate, Normal S1, Normal S2, No murmurs, No rub noted, No Gallop Abdomen: Bowel Sounds Present, Soft, Non Tender, Non-Distended Extremities: No cyanosis, No edema, Capillary Refill Less than 3 Seconds, Clubbing Skin: - - No changes compared to previous Musculoskeletal: No Tenderness to Palpation of Joints or Extremities Lymphatic: No Cervical, Supraclavicular, or Inguinal Adenopathy Neurological: Cranial nerves II-XII grossly intact, Neuro grossly intact, Motor Exam 5/5 strength throughout Psych/Mental Status: Alert and oriented to time, place, person, mood and affect Microbiology Past 72 Hours 07/01/19 13:00 Urine, Catheterized Urine Culture - Final Culture exhibits no growth. 07/01/19 Unknown Mucosa - Nasopharyngeal Coronavirus COVID-19 PCR - Final SARS-CoV-2 (COVID 19) Laboratory Results 07/02/19 11:31: POC Glucose 272 H 07/02/19 14:41: POC Glucose 300 H 07/02/19 20:47: POC Glucose 352 H 07/03/19 04:55: WBC 8.4, RBC 3.38 L, Hgb 10.4 L, Hct 33.8 L, MCV 100.0 H, MCH 30.8, MCHC 30.8 L, RDW Std Deviation 50.2 H, RDW Coeff of Delia 13.7, Plt Count 210, MPV 11.1, Immature Gran % (Auto) 0.800, Neut % (Auto) 85.4 H, Lymph % (Auto) 11.0 L, [place] % (Auto) 2.7, Eos % (Auto) 0.0, Baso % (Auto) 0.1, Absolute Neuts (auto) 7.2, Absolute Lymphs (auto) 0.93, Nucleated RBC % 0 07/03/19 04:55: Sodium 137, Potassium 4.3, Chloride 90 L, Carbon Dioxide 41.0 H, Anion Gap 6, BUN 34 H, Creatinine 1.15, Estim Creat Clear Calc 47.91, Est GFR (MDRD) Af Amer 78, Est GFR (MDRD) Non-Af 65, BUN/Creatinine Ratio 29.6 H, Glucose 324 H, Calcium 8.7, Magnesium 2.1, Total Bilirubin 0.50, AST 13 L, ALT 17, Alkaline Phosphatase 101, Total Protein 6.3 L, Albumin 3.0 L, Globulin 3.3, Albumin/Globulin Ratio 0.9 07/03/19 07:56: POC Glucose 282 H Current Medications Acetaminophen (Tylenol) 650 mg PO Q6H PRN PRN PRN Reason: Pain Score 1-10/Temp > 100.7 F Albuterol Sulfate (Ventolin Hfa (Sp)) 2 puff INHALATION Q4H PRN PRN PRN Reason: SHORTNESS OF BREATH Amlodipine Besylate (Norvasc) 10 mg PO DAILY [facility] Last Admin: 07/02/19 08:47 Dose: 10 mg Documented by: Aspirin (Aspirin, Baby) 81 mg PO DAILY [facility] Last Admin: 07/02/19 08:48 Dose: 81 mg Documented by: Atorvastatin Calcium (Lipitor) 20 mg PO QHS [facility] Last Admin: 07/02/19 21:03 Dose: 20 mg Documented by: Benzonatate (Tessalon Perle) 200 mg PO TID PRN PRN PRN Reason: cough Dextrose (D50w Syringe) 0 gm IV X1 PRN; Protocol PRN Reason: Hypoglycemia Enoxaparin Sodium (Lovenox) 80 mg SC BID [facility] Last Admin: 07/02/19 21:04 Dose: 80 mg Documented by: Furosemide (Lasix) 20 mg PO DAILY [facility] Last Admin: 07/02/19 14:43 Dose: 20 mg Documented by: Glucagon () 1 mg IM .X1 PRN PRN Reason: Hypoglycemia Guaifenesin (Mucinex) 1,200 mg PO BID [facility] Last Admin: 07/02/19 21:04 Dose: 1,200 mg Documented by: Ceftriaxone Sodium (Rocephin) 1 gm in 50 mls @ 100 mls/hr IV Q24 [facility] Last Infusion: 07/02/19 09:31 Dose: Infused Documented by: Azithromycin 500 mg/ Dextrose 255 mls @ 250 mls/hr IV Q24 [facility] Last Infusion: 07/02/19 11:13 Dose: Infused Documented by: Sodium Chloride () 250 mls @ 15 mls/hr IV .[id number] PRN PRN Reason: Saline Flush Sodium Chloride () 250 mls @ 15 mls/hr IV .[id number] PRN PRN Reason: Additional IVPB Infusion Insulin Glargine (Lantus (Bkc)) 10 units SC DAILY [facility] Insulin Human Lispro (Humalog Kwikpen (Bkc)) 0 unit SC ACHS [facility]; Protocol Last Admin: 07/03/19 08:01 Dose: 4 u Documented by: Methylprednisolone (Solu-Medrol) 40 mg IV Q12 [facility] Metoprolol Succinate (Toprol Xl (Beta Estevan)) 50 mg PO DAILY [facility] Last Admin: 07/02/19 08:47 Dose: 50 mg Documented by: Ondansetron HCl (Zofran) 4 mg IV Q8H PRN PRN PRN Reason: NAUSEA/VOMITING Potassium Chloride (K-Dur) 40 meq PO DAILYCM [facility] Last Admin: 07/02/19 08:47 Dose: 40 meq Documented by: Sodium Chloride () 10 - 40 ml IV UD PRN PRN Reason: SALINE FLUSH Last Admin: 07/03/19 04:48 Dose: 10 ml Documented by: Umeclidinium [place] (Incruse Ellipta Inhaler) 1 puff IH DAILY [facility] Last Admin: 07/02/19 14:47 Dose: 1 puff Documented by: Medical Necessity - Tobacco Use Smoking Status: Former smoker Tobacco Use: Non-smoker Assessment/Plan All Active Problems (Last Reviewed 03/13/19 @ 09:42 by Krystle Dumont NP-C) Hypoxia (Acute) Bronchitis (Acute) Suspected COVID-19 virus infection (Acute) Community acquired bacterial pneumonia (Acute) COVID-19 (Acute) History of pneumonia (Acute) History of bronchitis (Acute) Hx of appendectomy (Resolved) COPD exacerbation (Acute) RECOMMENDATIONS: 1. Await convalescent plasma 2. Continue systemic anticoagulation 3. Wean oxygen as tolerated. Keep saturations 90 to 94% to avoid CO2 retention 4. Wean steroids. Initiate Lantus 5. Likely okay to discontinue antibiotics once culture negative. Pro calcitonin low IMPRESSIONS: 1. Acute on chronic combined respiratory failure secondary to COVID infection/advanced COPD Patient with COVID positive testing noted today. Patient has had progressive hypoxia despite only day 2 of reported symptoms. Patient does have advanced COPD with an FEV1 of 37% of predicted. Respiratory status appears to be stabilizing. Will decrease steroids to every [address] Will [address] patient on systemic anticoagulation. Given patient's CODE STATUS of DNR Comfort Care arrest without intubation, significant hypoxia and poor baseline pulmonary status, patient was enrolled for convalescent serum. Patient has been given an ID number of #[id number]. Blood bank has been notified. Patient does not wish to be intubated, but is open to BiPAP therapy if necessary 2. Type 2 diabetes mellitus, [id number] Patient only does not take insulin at baseline, but given systemic steroids, basal insulin will be initiated. We will continue to follow. Likely not necessary to get a hemoglobin A1c from my perspective. 3. Hypertension/CAD/PAD/carotid stenosis/advanced age/multiple admissions?exacerbations Complicates care, management, recovery and prognosis. Okay to continue with baseline medications from my perspective. Likely okay to continue with CHIQUIS inhibitor as renal function has remained stable Inpatient E&M: [id number] [facility] Hosp L3
[2019-07-03] MEDS: Albuterol Sulfate 8 gm Inhaler 2 PUFF INHALATION (08:49)
[2019-07-03] MEDS: Aspirin 81 MG TAB.CHEW PO (10:15)
[2019-07-03] MEDS: Furosemide 20 MG Tablet PO (10:15)
[2019-07-03] MEDS: guaiFENesin 1,200 MG Tablet 1200 MG PO ×2 (10:16→21:32)
[2019-07-03] MEDS: Enoxaparin 80 MG/0.8 ML Syringe SC ×2 (10:16→21:32)
[2019-07-03] MEDS: Umeclidinium Bromide Inhaler 1 PUFF IH (10:16)
[2019-07-03] MEDS: Metoprolol(XL)Succ 50 MG Tablet PO (10:16)
[2019-07-03 10:34] LABS: Hemoglobin A1c 7.7 % (4.2-6.3)
--- NOTE | 2019-07-03 10:48 | PCM.HP.ID ---
Problem List (1) COVID-19 Status: Acute Reason for Consult: covid Consulted by: Dr. Thomason History of Present Illness: The patient is a 83 year old M with COPD, on home O2, lives with his son, both have been masking, no sick contacts. Came to ED with 2 days of worsening hypoxia, not feeling well, some dry cough. No sputum, no fever, no aches, no change in taste/smell, no n/v/d. No chest pain. Came to ED, covid (+), admitted on azithro/ceftriaxone, feeling about the same. Started on steroids and therapeutic anticoagulation. D-dimer was 1.6. Feeling about the same today. Full ROS performed and neg except as noted above. - Medical History Past Medical History (Chronic Problems): Chronic Problems (Last Reviewed 03/13/19 @ 09:42 by Krystle Dumont NP-C) Chronic respiratory failure (Chronic) Acute and chronic respiratory failure (Chronic) Chronic respiratory failure with hypoxia (Chronic) Carotid stenosis, bilateral (Chronic) Peripheral arterial disease (Chronic) Coronary artery disease (Chronic) History of cardiac stents (Chronic) Dyslipidemia (Chronic) DM type 2 (diabetes mellitus, type 2) (Chronic) Hypertension (Chronic) COPD (chronic obstructive pulmonary disease) (Chronic) FEV1 37% (01/09/2019) Allergies/Adverse Reactions: Allergies WORM MEDICATION Allergy (Uncoded 03/13/19 09:25) Hives 50 years ago. kids had got worms so the whole family needed to be treated for it. Home Medications: Ambulatory Orders Medication Instructions Recorded Aspirin [Aspirin, Baby] 81 mg PO DAILY@0800 01/18/17 Lisinopril/Hydrochlorothiazide 1 tab PO DAILY 01/18/17 [Zestoretic Tablet] Metoprolol Succinate [Toprol Xl] 50 mg PO DAILY 01/18/17 Nebulizer [Aeroneb Go Nebulizer] 1 ea MC Q4H PRN #1 ea 10/01/18 metFORMIN HCl [Glucophage] 500 mg PO DAILY 02/16/19 Albuterol Aerosols [Ventolin 2.5 mg INHALATION Q4H PRN PRN #30 03/05/19 Aerosols] vial.neb. Benzonatate [Tessalon Perle] 200 mg PO TID PRN PRN #20 cap 03/05/19 Ipratropium/Albuterol Sulfate 3 ml INHALATION Q4HWA.RT #30 03/05/19 [Duoneb] ampul.neb tiotropium bromide 18 mcg capsule 18 mcg INHALATION DAILY #30 inh 03/13/19 with inhalation device Amlodipine [Norvasc] 10 mg PO DAILY 07/01/19 Atorvastatin Calcium [Lipitor] 20 mg PO DAILY 07/01/19 Glimepiride 1 mg PO DAILY 07/01/19 Guaifenesin [Mucinex] 1,200 mg PO BID 07/01/19 Pioglitazone [Actos] 45 mg PO DAILY 07/01/19 - Social History SMOKING STATUS:: Former smoker Vital Signs Temp Pulse Resp BP Pulse Ox 98.9 F 89 16 128/40 H 97 07/03/19 09:00 07/03/19 10:16 07/03/19 09:00 07/03/19 10:16 07/03/19 09:00 Oxygen Flow Rate (L/min) 50 Oxygen Delivery Method CPAP Weight: 79.7 kg Body Mass Index (BMI) 26.6 Microbiology Past 72 Hours 07/01/19 10:00 Blood Culture - Preliminary Blood Culture (Wb) - Right Forearm No growth in 48 hours. 07/01/19 09:50 Blood Culture - Preliminary Blood Culture (Wb) - Anticubital Left No growth in 48 hours. 07/01/19 13:00 Urine Culture - Final Urine, Catheterized Culture exhibits no growth. 07/01/19 Unknown Coronavirus COVID-19 PCR - Final Mucosa - Nasopharyngeal SARS-CoV-2 (COVID 19) Laboratory Tests Past 24 Hrs 07/03/19 07/03/19 07/03/19 04:55 04:55 04:55 WBC 8.4 RBC 3.38 L Hgb 10.4 L Hct 33.8 L MCV 100.0 H MCH 30.8 MCHC 30.8 L RDW Std Deviation 50.2 H RDW Coeff of Delia 13.7 Plt Count 210 MPV 11.1 Immature Gran % (Auto) 0.800 Neut % (Auto) 85.4 H Lymph % (Auto) 11.0 L [place] % (Auto) 2.7 Eos % (Auto) 0.0 Baso % (Auto) 0.1 Absolute Neuts (auto) 7.2 Absolute Lymphs (auto) 0.93 Nucleated RBC % 0 Sodium 137 Potassium 4.3 Chloride 90 L Carbon Dioxide 41.0 H Anion Gap 6 BUN 34 H Creatinine 1.15 Estim Creat Clear Calc 47.91 Est GFR (MDRD) Af Amer 78 Est GFR (MDRD) Non-Af 65 BUN/Creatinine Ratio 29.6 H Glucose 324 H Hemoglobin A1c 7.7 H Calcium 8.7 Magnesium 2.1 Total Bilirubin 0.50 AST 13 L ALT 17 Alkaline Phosphatase 101 Total Protein 6.3 L Albumin 3.0 L Globulin 3.3 Albumin/Globulin Ratio 0.9 - Other Studies Radiology: [] reviewed Other Studies: [] Route of nutrition/ use of supplements: [] Nutritional Intake: [] IV Site: [] Leiva Catheter: [] - Physical Exam General: Alert, Oriented x3, Cooperative, No apparent distress HEENT: Atraumatic, PERRLA, EOMI Neck: Supple, No Nodes Lungs: Diminished Cardiovascular: Regular rate, Regular Rhythm Abdomen: Soft, Non Tender, Non-Distended Extremities: No edema Skin: No rashes IV Site: Peripheral, without redness Musculoskeletal: No Tenderness to Palpation of Joints or Extremities Neurological: Cranial nerves II-XII grossly intact - Assessment/Plan Antibiotics: [] Assessment/Plan: [] Active and Suspected Problems (Last Reviewed 03/13/19 @ 09:42 by Krystle Dumont NP-C) Hypoxia (Acute) Suspected COVID-19 virus infection (Acute) Community acquired bacterial pneumonia (Acute) COVID-19 (Acute) COPD exacerbation (Acute) COVID with copd exacerbation - bcx neg so far. PCT, ferritin, CRP, trop were normal. D-dimer was elevated. On steroids and therapeutic lovenox. No fever here. Only short duration of symptoms prior to presentation, so concern he could get a mounting inflammatory response. Will check bnp, ferritin, crp with AM labs. Will stop ceftriaxone. Check UAgs. Will keep azithro, change it to po given his copd and wheezing on admit. Convalescent serum ordered by Dr. Christensen. Will follow, thank you. D/w Dr. Thomason.
[2019-07-03 12:17] LABS: BNP,B-Type NATRIURETIC PEPTIDE 234.3 pg/mL (0-100)
[2019-07-03] MEDS: Pioglitazone Hydrochloride 45 MG Tablet PO (13:05)
[2019-07-03] MEDS: Azithromycin 250 MG Tablet 500 MG PO (13:05)
[2019-07-03] MEDS: Glimepiride 1 MG Tablet PO (13:05)
[2019-07-03] MEDS: amLODIPine 10 MG Tablet PO (13:05)
[2019-07-03 13:11] LABS: Bedside Glucose 318 mg/dL (70-110)
--- NOTE | 2019-07-03 14:32 | CHAPLAIN ---
Type of Pastoral Visit ___ Initial Visit ___ Follow-up Visit ___ On-call Visit ___ General Patient Visit ___ Spiritual Assessment ___ Family Conference ___ Bereavement ___ Rapid Response ___ Code Blue _x__ Other (describe below) Pastoral Care Referral From ___ Patient ___ Family ___ Nurse _x__ Physician ___ Calender Let Off Operator ___ Medicaid Service Coordinator ___ Other (describe below) Sacrament/Intervention ___ Active listening ___ Anointing ___ Restoration ___ Bereavement ___ Communion ___ Mikayla exploration ___ ___ Life review ___ Prayer ___ Reconciliation ___ Sacrament of Sick ___ Supportive presence ___ Wedding _x__ Other (describe below) Pastoral Comments support of spiritual care is recommended by DR for this patient; over last two days attempts made to contact pt through phone calls; pt has been either sleeping or unable to get to phone; today CORPORATE DEVELOPMENT MANAGER asked pt directly if he would be willing to talk on phone for spiritual support; pt declined offer stating that he is doing ok; CORPORATE DEVELOPMENT MANAGER notes that dietary has had difficulty communicating with pt over the phone
[2019-07-03] MEDS: Furosemide 40 MG Tablet PO (16:39)
[2019-07-03 16:55] LABS: Bedside Glucose 321 mg/dL (70-110)
[2019-07-03] MEDS: Atorvastatin Calcium 20 MG Tablet PO (21:32)
[2019-07-03 23:26] LABS: Bedside Glucose 202 mg/dL (70-110)
[2019-07-04] VITALS (21 sets, daily range): BP systolic 106–138; BP diastolic 33–88; PULSE 60–86; RESP 15–27; TEMP 36.6–37.6; O2SAT 79–98
[2019-07-04 04:49] LABS: ALB/GLOB Ratio 0.9 RATIO (0.9-2.4); AST(SGOT) 17 U/L (15-37); Alanine Aminotransfer ALT/SGPT 20 U/L (16-61); Albumin, Serum 2.9 g/dL (3.2-5.0); Alkaline Phosphatase 96 U/L (45-117); Anion Gap 7 (5-15); BUN 36 mg/dL (7-18); CRP < 2.90 mg/L (0.0-3.0); Calcium,Total 8.5 mg/dL (8.5-10.1); Chloride 88 mmol/L (98-107); Creatinine, Serum 1.16 mg/dL (0.70-1.30); EST Glomerular Filtration Rate 64 mL/min (>60); Est Glom Filt Rate - Afr Amer 77 mL/min (>60); Ferritin 123 ng/mL (26-388); Globulin 3.4 g/dL (2.2-4.2); Glucose 310 mg/dL (74-106); Potassium 4.4 mmol/L (3.5-5.1); Protein, Total 6.3 g/dL (6.4-8.2); Sodium Level 134 mmol/L (136-145)
[2019-07-04 05:14] LABS: Absolute Lymphocyte Count 0.84 X10^3/uL (0.83-4.51); Absolute Neutrophil Count 7.7 X10^3/uL (2.0-7.7); Basophil# 0.01 X10^3/uL; Basophil% 0.1 % (0-1); Hematocrit 33.8 % (40-54); Hemoglobin 10.6 g/dL (13.0-16.5); Lymphocyte # 0.84 X10^3/ul (4.0); Lymphocyte % 9.6 % (19-41); Mean Corp Hgb Conc 31.4 g/dL (32-36); Mean Corpuscular Hgb 30.9 pg (27.0-32.0); Mean Corpuscular Volume 98.5 fL (80-94); Mean Platelet Vol. 11.5 fl (6.2-12.0); Monocyte# 0.12 X10^3/uL; Monocyte% 1.4 % (0-10); NRBC Flagged by Analyzer 0 % (0-5); Neutrophil # 7.69 X10^3/uL (2.7-7.7); Neutrophil % 88.2 % (47-70); Platelet Count 209 K/mm3 (150-450); RBC Distribution Width CV 13.8 % (11.6-14.6); RBC Distribution Width SD 49.9 fl (35.1-43.9); Red Blood Count 3.43 M/mm3 (4.6-6.2); White Blood Count 8.7 K/mm3 (4.4-11.0)
--- NOTE | 2019-07-04 06:46 | PCM.PN.PUL ---
Patient Problems: Active and Suspected Problems (Last Reviewed 03/13/19 @ 09:42 by CLAUDETTE Jeffery) Hypoxia (Acute) Suspected COVID-19 virus infection (Acute) Community acquired bacterial pneumonia (Acute) COVID-19 (Acute) COPD exacerbation (Acute) Subjective: Patient did okay overnight. Patient continues to have significant desaturation with any movement, but is now tolerating 45% high flow nasal cannula. Patient reports no subjective change in overall condition. Objective: Waiting day 3 for convalescent serum - Physical Exam Vitals/I&O's: Vital Signs Temp Pulse Resp BP Pulse Ox 37.2 C 77 17 136/45 H 91 07/04/19 04:00 07/04/19 04:10 07/04/19 04:10 07/04/19 04:00 07/04/19 04:10 Oxygen Flow Rate (L/min) 50 Oxygen Delivery Method CPAP Weight: 77.9 kg Body Mass Index (BMI) 26.6 Intake and Output for Last 24 Hours 07/02/19 07/03/19 07/04/19 23:59 23:59 23:59 Intake Total 844 / 1084 480 / 480 Output Total 1675 / 2475 3300 / 3300 600 / 600 Balance -831 / -1391 -2820 / -2820 -600 / -600 General: Alert, Oriented x3, Cooperative, No apparent distress, Well developed, Well nourished, - - No scleral icterus or injection noted HEENT: Atraumatic, PERRLA, EOMI, Normocephalic Oral: Moist Mucosa, No Gingival or Mucosal Lesions/ Ulcerations Neck: Supple, No JVD, No Nodes, Trachea Midline Lungs: No rhonchi, No wheeze, No rales, Diminished, - - Symmetric expansion. Cardiovascular: Regular rate, Regular Rhythm, Normal S1, Normal S2, No murmurs, No rub noted, No Gallop Abdomen: Bowel Sounds Present, Soft, Non Tender, Non-Distended Extremities: No cyanosis, No edema, Capillary Refill Less than 3 Seconds, Clubbing Skin: - - No significant change compared to previous. Significant dermal atrophy noted. Musculoskeletal: No Tenderness to Palpation of Joints or Extremities Lymphatic: No Cervical, Supraclavicular, or Inguinal Adenopathy Neurological: Cranial nerves II-XII grossly intact, Neuro grossly intact, Motor Exam 5/5 strength throughout Psych/Mental Status: Alert and oriented to time, place, person, mood and affect Microbiology Past 72 Hours 07/01/19 13:00 Urine, Random Streptococcus pneumoniae Antigen (M - Final 07/01/19 13:00 Urine Catheter - Catheter Legionella Antigen - Final 07/01/19 10:00 Blood Culture (Wb) - Right Forearm Blood Culture - Preliminary No growth in 48 hours. 07/01/19 09:50 Blood Culture (Wb) - Anticubital Left Blood Culture - Preliminary No growth in 48 hours. 07/01/19 13:00 Urine, Catheterized Urine Culture - Final Culture exhibits no growth. 07/01/19 Unknown Mucosa - Nasopharyngeal Coronavirus COVID-19 PCR - Final SARS-CoV-2 (COVID 19) Laboratory Results 07/03/19 04:55: Hemoglobin A1c 7.7 H 07/03/19 04:55: B-Natriuretic Peptide 234.3 H 07/03/19 07:56: POC Glucose 282 H 07/03/19 12:53: POC Glucose 318 H 07/03/19 16:37: POC Glucose 321 H 07/03/19 21:29: POC Glucose 202 H 07/04/19 04:20: WBC 8.7, RBC 3.43 L, Hgb 10.6 L, Hct 33.8 L, MCV 98.5 H, MCH 30.9, MCHC 31.4 L, RDW Std Deviation 49.9 H, RDW Coeff of Delia 13.8, Plt Count 209, MPV 11.5, Immature Gran % (Auto) 0.700, Neut % (Auto) 88.2 H, Lymph % (Auto) 9.6 L, [place] % (Auto) 1.4, Eos % (Auto) 0.0, Baso % (Auto) 0.1, Absolute Neuts (auto) 7.7, Absolute Lymphs (auto) 0.84, Nucleated RBC % 0 07/04/19 04:20: Sodium 134 L, Potassium 4.4, Chloride 88 L, Carbon Dioxide 39.0 H, Anion Gap 7, BUN 36 H, Creatinine 1.16, Estim Creat Clear Calc 47.50, Est GFR (MDRD) Af Amer 77, Est GFR (MDRD) Non-Af 64, BUN/Creatinine Ratio 31.0 H, Glucose 310 H, Calcium 8.5, Ferritin 123, Total Bilirubin 0.50, AST 17, ALT 20, Alkaline Phosphatase 96, C-React Prot Ext Range < 2.90, Total Protein 6.3 L, Albumin 2.9 L, Globulin 3.4, Albumin/Globulin Ratio 0.9 07/04/19 04:20: B-Natriuretic Peptide 200.0 H Current Medications Acetaminophen (Tylenol) 650 mg PO Q6H PRN PRN PRN Reason: Pain Score 1-10/Temp > 100.7 F Albuterol Sulfate (Ventolin Hfa (Sp)) 2 puff INHALATION Q4H PRN PRN PRN Reason: SHORTNESS OF BREATH Last Admin: 07/03/19 08:49 Dose: 2 puff Documented by: Amlodipine Besylate (Norvasc) 10 mg PO DAILY [facility] Last Admin: 07/03/19 13:05 Dose: 10 mg Documented by: Aspirin (Aspirin, Baby) 81 mg PO DAILY [facility] Last Admin: 07/03/19 10:15 Dose: 81 mg Documented by: Atorvastatin Calcium (Lipitor) 20 mg PO QHS [facility] Last Admin: 07/03/19 21:32 Dose: 20 mg Documented by: Azithromycin (Zithromax) 500 mg PO Q24 [facility] Last Admin: 07/03/19 13:05 Dose: 500 mg Documented by: Benzonatate (Tessalon Perle) 200 mg PO TID PRN PRN PRN Reason: cough Dextrose (D50w Syringe) 0 gm IV X1 PRN; Protocol PRN Reason: Hypoglycemia Enoxaparin Sodium (Lovenox) 80 mg SC BID [facility] Last Admin: 07/03/19 21:32 Dose: 80 mg Documented by: Furosemide (Lasix) 40 mg PO BIDLX [facility] Last Admin: 07/03/19 16:39 Dose: 40 mg Documented by: Glimepiride (Amaryl) 1 mg PO DAILYCM [facility] Last Admin: 07/03/19 13:05 Dose: 1 mg Documented by: Glucagon () 1 mg IM .X1 PRN PRN Reason: Hypoglycemia Guaifenesin (Mucinex) 1,200 mg PO BID [facility] Last Admin: 07/03/19 21:32 Dose: 1,200 mg Documented by: Sodium Chloride () 250 mls @ 15 mls/hr IV .[id number] PRN PRN Reason: Saline Flush Sodium Chloride () 250 mls @ 15 mls/hr IV .[id number] PRN PRN Reason: Additional IVPB Infusion Insulin Glargine (Lantus (Bkc)) 15 units SC BID [facility] Insulin Human Lispro (Humalog Kwikpen (Bkc)) 0 unit SC ACHS [facility]; Protocol Last Admin: 07/03/19 21:32 Dose: 2 u Documented by: Metoprolol Succinate (Toprol Xl (Beta Estevan)) 50 mg PO DAILY [facility] Last Admin: 07/03/19 10:16 Dose: 50 mg Documented by: Ondansetron HCl (Zofran) 4 mg IV Q8H PRN PRN PRN Reason: NAUSEA/VOMITING Pioglitazone HCl (Actos) 45 mg PO DAILY [facility] Last Admin: 07/03/19 13:05 Dose: 45 mg Documented by: Potassium Chloride (K[facility]Dur) [facility] Last Admin: 07/03/19 10:15 Dose: 40 meq Documented by: Prednisone () 40 mg PO DAILY@0800 [facility] Sodium Chloride () 10 - 40 ml IV UD PRN PRN Reason: SALINE FLUSH Last Admin: 07/03/19 21:34 Dose: 40 ml Documented by: Tamsulosin HCl (Flomax) 0.4 mg PO DAILY@1730 [facility] Umeclidinium [place] (Incruse Ellipta Inhaler) 1 puff IH DAILY [facility] Last Admin: 07/03/19 10:16 Dose: 1 puff Documented by: Medical Necessity - Tobacco Use Smoking Status: Former smoker Tobacco Use: Non-smoker Assessment/Plan All Active Problems (Last Reviewed 03/13/19 @ 09:42 by Krystle Dumont NP-C) Hypoxia (Acute) Bronchitis (Acute) Suspected COVID-19 virus infection (Acute) Community acquired bacterial pneumonia (Acute) COVID-19 (Acute) History of pneumonia (Acute) History of bronchitis (Acute) Hx of appendectomy (Resolved) COPD exacerbation (Acute) RECOMMENDATIONS: 1. Await convalescent plasma 2. Continue systemic anticoagulation 3. Wean oxygen as tolerated. Keep saturations 90 to 94% to avoid CO2 retention 4. Transition to p.o. steroids. Increase Lantus IMPRESSIONS: 1. Acute on chronic combined respiratory failure secondary to COVID infection/advanced COPD Patient with COVID positive testing. Patient has had progressive hypoxia despite only day 5 of reported symptoms. Patient does have advanced COPD with an FEV1 of 37% of predicted. Respiratory status appears to be stabilizing. We will transition patient to p.o. steroids and anticipate weaning over the next 12 to 14 days. Patient on systemic anticoagulation. Given patient's CODE STATUS of DNR Comfort Care arrest without intubation, significant hypoxia and poor baseline pulmonary status, patient was enrolled for convalescent serum 3 days ago. Patient has been given an ID number of #[id number]. Blood bank has been notified. Patient does not wish to be intubated, but is open to BiPAP therapy if necessary 2. Type 2 diabetes mellitus, [id number] Patient only does not take insulin at baseline, but given systemic steroids, basal insulin will be increased. We will continue to follow. Likely not necessary to get a hemoglobin A1c from my perspective. 3. Hypertension/CAD/PAD/carotid stenosis/advanced age/multiple admissions?exacerbations Complicates care, management, recovery and prognosis. Okay to continue with baseline medications from my perspective. Likely okay to continue with CHIQUIS inhibitor as renal function has remained stable Inpatient E&M: [id number] [facility] Hosp L3
--- NOTE | 2019-07-04 07:30 | PCM.PN.HOSP ---
Patient Problems: Active and Suspected Problems (Last Reviewed 03/13/19 @ 09:42 by Krystle Dumont NP-Bo) Hypoxia (Acute) Suspected COVID-19 virus infection (Acute) Community acquired bacterial pneumonia (Acute) COVID-19 (Acute) COPD exacerbation (Acute) Reason for Visit: Follow-up on acute on chronic hypoxic respiratory failure/Acute COVID-19 pneumonia/COPD exacerbation Subjective: Patient was seen and examined. He denies any worsening respiratory symptoms. His oxygen requirements increased to 55L on Fio2 50%. Objective: Physical exam: General: Alert, Oriented x3, Cooperative, No apparent distress, - - on high flow oxygen, comfortable HEENT: Atraumatic, PERRLA, EOMI, Normocephalic Oral: Moist Mucosa Neck: Supple Lungs: Diminished Cardiovascular: Regular rate, Regular Rhythm, Normal S1, Normal S2, No murmurs Abdomen: Bowel Sounds Present, Soft, Non Tender, Non-Distended, No Hepato-splenomegaly Skin: No rashes, No breakdown Musculoskeletal: No Tenderness to Palpation of Joints or Extremities Neurological: Cranial nerves II-XII grossly intact Psych/Mental Status: Normal Affect, Appropriate Vitals/I&O's: Vital Signs Temp Pulse Resp BP Pulse Ox 99.0 F 66 17 136/45 H 91 07/04/19 04:00 07/04/19 07:00 07/04/19 04:10 07/04/19 04:00 07/04/19 04:10 Oxygen Flow Rate (L/min) 50 Oxygen Delivery Method CPAP Weight: 77.9 kg Body Mass Index (BMI) 26.6 Intake and Output for Last 24 Hours 07/02/19 07/03/19 07/04/19 23:59 23:59 23:59 Intake Total 844 / 1084 480 / 480 Output Total 1675 / 2475 3300 / 3300 600 / 600 Balance -831 / -1391 -2820 / -2820 -600 / -600 Microbiology Past 72 Hours 07/01/19 13:00 Urine, Random Streptococcus pneumoniae Antigen (M - Final 07/01/19 13:00 Urine Catheter - Catheter Legionella Antigen - Final 07/01/19 10:00 Blood Culture (Wb) - Right Forearm Blood Culture - Preliminary No growth in 48 hours. 07/01/19 09:50 Blood Culture (Wb) - Anticubital Left Blood Culture - Preliminary No growth in 48 hours. 07/01/19 13:00 Urine, Catheterized Urine Culture - Final Culture exhibits no growth. 07/01/19 Unknown Mucosa - Nasopharyngeal Coronavirus COVID-19 PCR - Final SARS-CoV-2 (COVID 19) Laboratory Results 07/03/19 04:55: Hemoglobin A1c 7.7 H 07/03/19 04:55: B-Natriuretic Peptide 234.3 H 07/03/19 07:56: POC Glucose 282 H 07/03/19 12:53: POC Glucose 318 H 07/03/19 16:37: POC Glucose 321 H 07/03/19 21:29: POC Glucose 202 H 07/04/19 04:20: WBC 8.7, RBC 3.43 L, Hgb 10.6 L, Hct 33.8 L, MCV 98.5 H, MCH 30.9, MCHC 31.4 L, RDW Std Deviation 49.9 H, RDW Coeff of Delia 13.8, Plt Count 209, MPV 11.5, Immature Gran % (Auto) 0.700, Neut % (Auto) 88.2 H, Lymph % (Auto) 9.6 L, [place] % (Auto) 1.4, Eos % (Auto) 0.0, Baso % (Auto) 0.1, Absolute Neuts (auto) 7.7, Absolute Lymphs (auto) 0.84, Nucleated RBC % 0 07/04/19 04:20: Sodium 134 L, Potassium 4.4, Chloride 88 L, Carbon Dioxide 39.0 H, Anion Gap 7, BUN 36 H, Creatinine 1.16, Estim Creat Clear Calc 47.50, Est GFR (MDRD) Af Amer 77, Est GFR (MDRD) Non-Af 64, BUN/Creatinine Ratio 31.0 H, Glucose 310 H, Calcium 8.5, Ferritin 123, Total Bilirubin 0.50, AST 17, ALT 20, Alkaline Phosphatase 96, C-React Prot Ext Range < 2.90, Total Protein 6.3 L, Albumin 2.9 L, Globulin 3.4, Albumin/Globulin Ratio 0.9 07/04/19 04:20: B-Natriuretic Peptide 200.0 H Current Medications Acetaminophen (Tylenol) 650 mg PO Q6H PRN PRN PRN Reason: Pain Score 1-10/Temp > 100.7 F Albuterol Sulfate (Ventolin Hfa (Sp)) 2 puff INHALATION Q4H PRN PRN PRN Reason: SHORTNESS OF BREATH Last Admin: 07/03/19 08:49 Dose: 2 puff Documented by: Amlodipine Besylate (Norvasc) 10 mg PO DAILY [facility] Last Admin: 07/03/19 13:05 Dose: 10 mg Documented by: Aspirin (Aspirin, Baby) 81 mg PO DAILY [facility] Last Admin: 07/03/19 10:15 Dose: 81 mg Documented by: Atorvastatin Calcium (Lipitor) 20 mg PO QHS [facility] Last Admin: 07/03/19 21:32 Dose: 20 mg Documented by: Azithromycin (Zithromax) 500 mg PO Q24 [facility] Last Admin: 07/03/19 13:05 Dose: 500 mg Documented by: Benzonatate (Tessalon Perle) 200 mg PO TID PRN PRN PRN Reason: cough Dextrose (D50w Syringe) 0 gm IV X1 PRN; Protocol PRN Reason: Hypoglycemia Enoxaparin Sodium (Lovenox) 80 mg SC BID [facility] Last Admin: 07/03/19 21:32 Dose: 80 mg Documented by: Furosemide (Lasix) 40 mg PO BIDLX [facility] Last Admin: 07/03/19 16:39 Dose: 40 mg Documented by: Glimepiride (Amaryl) 1 mg PO DAILYCM [facility] Last Admin: 07/03/19 13:05 Dose: 1 mg Documented by: Glucagon () 1 mg IM .X1 PRN PRN Reason: Hypoglycemia Guaifenesin (Mucinex) 1,200 mg PO BID [facility] Last Admin: 07/03/19 21:32 Dose: 1,200 mg Documented by: Sodium Chloride () 250 mls @ 15 mls/hr IV .[id number] PRN PRN Reason: Saline Flush Sodium Chloride () 250 mls @ 15 mls/hr IV .[id number] PRN PRN Reason: Additional IVPB Infusion Insulin Glargine (Lantus (Bkc)) 15 units SC BID [facility] Insulin Human Lispro (Humalog Kwikpen (Bkc)) 0 unit SC ACHS [facility]; Protocol Last Admin: 07/03/19 21:32 Dose: 2 u Documented by: Metoprolol Succinate (Toprol Xl (Beta Estevan)) 50 mg PO DAILY [facility] [place] Last Admin: 07/03/19 10:16 Dose: 50 mg Documented by: Ondansetron HCl (Zofran) 4 mg IV Q8H PRN PRN PRN Reason: NAUSEA/VOMITING Pioglitazone HCl (Actos) 45 mg PO DAILY [facility] [place] Last Admin: 07/03/19 13:05 Dose: 45 mg Documented by: Potassium Chloride (K-Dur) 40 meq PO DAILYCM [facility] [place] Last Admin: 07/03/19 10:15 Dose: 40 meq Documented by: Prednisone () 40 mg PO DAILY@0800 [facility] Sodium Chloride () 10 - 40 ml IV UD PRN PRN Reason: SALINE FLUSH Last Admin: 07/03/19 21:34 Dose: 40 ml Documented by: Tamsulosin HCl (Flomax) 0.4 mg PO DAILY@1730 [facility] Umeclidinium [place] (Incruse Ellipta Inhaler) 1 puff IH DAILY [facility] [place] Last Admin: 07/03/19 10:16 Dose: 1 puff Documented by: STROKE Vital Signs/Narrative: Vital Signs Temp Pulse Resp BP Pulse Ox 07/04/19 07:00 66 07/04/19 04:10 77 17 91 07/04/19 04:00 99.0 F 78 18 136/45 H 92 Medical Necessity - Tobacco Use Smoking Status: Former smoker Tobacco Use: Non-smoker Assessment/Plan All Active Problems (Last Reviewed 03/13/19 @ 09:42 by Krystle Dumont NP-C) Hypoxia (Acute) Bronchitis (Acute) Suspected COVID-19 virus infection (Acute) Community acquired bacterial pneumonia (Acute) COVID-19 (Acute) History of pneumonia (Acute) History of bronchitis (Acute) Hx of appendectomy (Resolved) COPD exacerbation (Acute) 83 year old M with past medical history of COPD with chronic hypoxic respiratory failure on 4 L of oxygen, hypertension, type II DM, CAD status post stents, PAD, who comes in with complaints of shortness of breath ongoing for 2 days. 1. Acute on chronic respiratory failure secondary to acute COVID infection/pneumonia/Possible acute COPD exacerbation, Remains on increased oxygen requirements. Patient was on 4 L of oxygen at baseline Will continue to wean off oxygen as tolerated. Pulmonology following. 2. Acute COVID related pneumonia, SARS?COVID?19 test positive D-dimer elevated at 1.60; will hold off on doing CTA of the chest for now Lactic acid was 1.0, Procalcitonin 0.07, CRP ,2.90 on admission BnPep 200, CRP <2.90, Ferritin 123 [employer] Chief and ID consulted Convalescent plasma ordered by pulmonology 3 days ago 3. Possible Acute COPD exacerbation secondary to #2 Now on po prednisone Continue on Albuterol inhaler prn 4. Hypomagnesemia, resolved 5. Type 2 DM, BS are remains uncontrolled secondary to IV steroids. HgBA1c is 7.7, Continue on Lantus 15 units BID, Actos and glimepiride Continue to hold off metformin Continue with blood glucose checks and insulin sliding scale 6. Hypertension, controlled Continue on amlodipine We will continue to hold lisinopril/hydrochlorothiazide for now 7. CAD s/p stents/carotid stenosis/PAD, continue on aspirin 8. DVT prophylaxis with therapeutic Lovenox 9. Code status: DNR-CCA Inpatient E&M: 77733 Subs Hosp L2
[2019-07-04] MEDS: Insulin Lispro 100 UNIT/ML INSULN.PEN SC ×4 (08:37→21:02)
[2019-07-04] MEDS: amLODIPine 10 MG Tablet PO (08:39)
[2019-07-04] MEDS: Azithromycin 250 MG Tablet 500 MG PO (08:39)
[2019-07-04] MEDS: Furosemide 40 MG Tablet PO ×2 (08:40→16:54)
[2019-07-04] MEDS: Pioglitazone Hydrochloride 45 MG Tablet PO (08:40)
[2019-07-04] MEDS: Glimepiride 1 MG Tablet PO (08:41)
[2019-07-04] MEDS: Enoxaparin 80 MG/0.8 ML Syringe SC ×2 (08:41→21:04)
[2019-07-04] MEDS: guaiFENesin 1,200 MG Tablet 1200 MG PO ×2 (08:41→21:05)
[2019-07-04] MEDS: Aspirin 81 MG TAB.CHEW PO (08:41)
[2019-07-04] MEDS: predniSONE 20 MG Tablet 40 MG PO (08:41)
[2019-07-04] MEDS: Umeclidinium Bromide Inhaler 1 PUFF IH (09:05)
[2019-07-04] MEDS: 0.9% Saline Lock 10 ML Syringe IV ×2 (09:05→17:08)
[2019-07-04 09:16] LABS: Bedside Glucose 301 mg/dL (70-110)
[2019-07-04 12:21] LABS: Bedside Glucose 240 mg/dL (70-110)
[2019-07-04] MEDS: Metoprolol(XL)Succ 50 MG Tablet PO (12:29)
--- NOTE | 2019-07-04 16:10 | PCM.PN.ID ---
Patient Problems: Active and Suspected Problems (Last Reviewed 03/13/19 @ 09:42 by CLAUDETTE Jeffery) Hypoxia (Acute) Suspected COVID-19 virus infection (Acute) Community acquired bacterial pneumonia (Acute) COVID-19 (Acute) COPD exacerbation (Acute) Subjective: Feeling about the same, breathing ok, no fever - Physical Exam Vitals/I&O's: Vital Signs Temp Pulse Resp BP Pulse Ox 98.6 F 61 16 125/46 H 92 07/04/19 08:00 07/04/19 15:41 07/04/19 15:41 07/04/19 12:29 07/04/19 15:41 Oxygen Flow Rate (L/min) 55 Oxygen Delivery Method Nasal Cannula Weight: 77.9 kg Body Mass Index (BMI) 26.6 Intake and Output for Last 24 Hours 07/02/19 07/03/19 07/04/19 23:59 23:59 23:59 Intake Total 844 / 1084 480 / 480 420 / 420 Output Total 1675 / 2475 3300 / 3300 1150 / 1150 Balance -831 / -1391 -2820 / -2820 -730 / -730 General: Alert, Cooperative, No apparent distress Lungs: Diminished Cardiovascular: Regular rate, Regular Rhythm Abdomen: Soft, Non Tender, Non-Distended Skin: No rashes Microbiology Past 72 Hours 07/01/19 13:00 Urine, Random Streptococcus pneumoniae Antigen (M - Final 07/01/19 13:00 Urine Catheter - Catheter Legionella Antigen - Final 07/01/19 10:00 Blood Culture (Wb) - Right Forearm Blood Culture - Preliminary No growth in 48 hours. 07/01/19 09:50 Blood Culture (Wb) - Anticubital Left Blood Culture - Preliminary No growth in 48 hours. 07/01/19 13:00 Urine, Catheterized Urine Culture - Final Culture exhibits no growth. 07/01/19 Unknown Mucosa - Nasopharyngeal Coronavirus COVID-19 PCR - Final SARS-CoV-2 (COVID 19) Laboratory Results 07/01/19 14:00: Blood Type O POSITIVE, Antibody Screen NEGATIVE 07/03/19 16:37: POC Glucose 321 H 07/03/19 21:29: POC Glucose 202 H 07/04/19 04:20: WBC 8.7, RBC 3.43 L, Hgb 10.6 L, Hct 33.8 L, MCV 98.5 H, MCH 30.9, MCHC 31.4 L, RDW Std Deviation 49.9 H, RDW Coeff of Delia 13.8, Plt Count 209, MPV 11.5, Immature Gran % (Auto) 0.700, Neut % (Auto) 88.2 H, Lymph % (Auto) 9.6 L, [place] % (Auto) 1.4, Eos % (Auto) 0.0, Baso % (Auto) 0.1, Absolute Neuts (auto) 7.7, Absolute Lymphs (auto) 0.84, Nucleated RBC % 0 07/04/19 04:20: Sodium 134 L, Potassium 4.4, Chloride 88 L, Carbon Dioxide 39.0 H, Anion Gap 7, BUN 36 H, Creatinine 1.16, Estim Creat Clear Calc 47.50, Est GFR (MDRD) Af Amer 77, Est GFR (MDRD) Non-Af 64, BUN/Creatinine Ratio 31.0 H, Glucose 310 H, Calcium 8.5, Ferritin 123, Total Bilirubin 0.50, AST 17, ALT 20, Alkaline Phosphatase 96, C-React Prot Ext Range < 2.90, Total Protein 6.3 L, Albumin 2.9 L, Globulin 3.4, Albumin/Globulin Ratio 0.9 07/04/19 04:20: B-Natriuretic Peptide 200.0 H 07/04/19 08:09: POC Glucose 301 H 07/04/19 12:07: POC Glucose 240 H Current Medications Acetaminophen (Tylenol) 650 mg PO Q6H PRN PRN PRN Reason: Pain Score 1-10/Temp > 100.7 F Albuterol Sulfate (Ventolin Hfa (Sp)) 2 puff INHALATION Q4H PRN PRN PRN Reason: SHORTNESS OF BREATH Last Admin: 07/03/19 08:49 Dose: 2 puff Documented by: Amlodipine Besylate (Norvasc) 10 mg PO DAILY [facility] Last Admin: 07/04/19 08:39 Dose: 10 mg Documented by: Aspirin (Aspirin, Baby) 81 mg PO DAILY [facility] Last Admin: 07/04/19 08:41 Dose: 81 mg Documented by: Atorvastatin Calcium (Lipitor) 20 mg PO QHS [facility] Last Admin: 07/03/19 21:32 Dose: 20 mg Documented by: Azithromycin (Zithromax) 500 mg PO Q24 [facility] Benzonatate (Tessalon Perle) 200 mg PO TID PRN PRN PRN Reason: cough Dextrose (D50w Syringe) 0 gm IV X1 PRN; Protocol PRN Reason: Hypoglycemia Enoxaparin Sodium (Lovenox) 80 mg SC BID [facility] Last Admin: 07/04/19 08:41 Dose: 80 mg Documented by: Furosemide (Lasix) 40 mg PO BIDLX [facility] Last Admin: 07/04/19 08:40 Dose: 40 mg Documented by: Glimepiride (Amaryl) 1 mg PO DAILYCM [facility] Last Admin: 07/04/19 08:41 Dose: 1 mg Documented by: Glucagon () 1 mg IM .X1 PRN PRN Reason: Hypoglycemia Guaifenesin (Mucinex) 1,200 mg PO BID [facility] Last Admin: 07/04/19 08:41 Dose: 1,200 mg Documented by: Sodium Chloride () 250 mls @ 15 mls/hr IV .[id number] PRN PRN Reason: Saline Flush Sodium Chloride () 250 mls @ 15 mls/hr IV .[id number] PRN PRN Reason: Additional IVPB Infusion Insulin Glargine (Lantus (Bk)) 15 units SC BID [facility] Last Admin: 07/04/19 08:41 Dose: 15 units Documented by: Insulin Human Lispro (Humalog Kwikpen (Bk)) 0 unit SC ACHS [facility]; Protocol Last Admin: 07/04/19 12:30 Dose: 3 u Documented by: Metoprolol Succinate (Toprol Xl (Beta Estevan)) 50 mg PO DAILY [facility] Last Admin: 07/04/19 12:29 Dose: 50 mg Documented by: Ondansetron HCl (Zofran) 4 mg IV Q8H PRN PRN PRN Reason: NAUSEA/VOMITING Pioglitazone HCl (Actos) 45 mg PO DAILY [facility] Last Admin: 07/04/19 08:40 Dose: 45 mg Documented by: Potassium Chloride (K-Dur) [facility] Prednisone () 40 mg PO DAILY@0800 [facility] Last Admin: 07/04/19 08:41 Dose: 40 mg Documented by: Sodium Chloride () 10 - 40 ml IV UD PRN PRN Reason: SALINE FLUSH Last Admin: 07/04/19 09:05 Dose: 10 ml Documented by: Tamsulosin HCl (Flomax) 0.4 mg PO DAILY@1730 [facility] Umeclidinium [place] (Incruse Ellipta Inhaler) 1 puff IH DAILY [facility] Last Admin: 07/04/19 09:05 Dose: 1 puff Documented by: Medical Necessity - Tobacco Use Smoking Status: Former smoker Tobacco Use: Non-smoker Route of nutrition/ use of supplements: [] Nutritional Intake: [] IV Site: [] Leiva Catheter: [] - Assessment/Plan Antibiotics: [] Assessment/Plan: [] Active and Suspected Problems (Last Reviewed 03/13/19 @ 09:42 by Krystle Dumont, RAFA-C) Hypoxia (Acute) Suspected COVID-19 virus infection (Acute) Community acquired bacterial pneumonia (Acute) COVID-19 (Acute) COPD exacerbation (Acute) COVID with copd exacerbation - bcx neg so far. PCT, ferritin, CRP, trop were normal. D-dimer was elevated. On steroids and therapeutic lovenox. No fever here. Only short duration of symptoms prior to presentation, so concern he could get a mounting inflammatory response. O2 improving. On azithro, plan on 5 day course. Convalescent serum ordered by Dr. Christensen. Will follow. D/w Dr. Thomason.
[2019-07-04] MEDS: Tamsulosin HCl 0.4 MG Capsule PO (16:54)
[2019-07-04 17:25] LABS: Bedside Glucose 306 mg/dL (70-110)
--- NOTE | 2019-07-04 20:00 | CPS ---
WATER BAG CHANGED ON AIRVO
[2019-07-04] MEDS: Atorvastatin Calcium 20 MG Tablet PO (21:04)
[2019-07-04 22:46] LABS: Bedside Glucose 368 mg/dL (70-110)
[2019-07-05] VITALS (20 sets, daily range): BP systolic 101–136; BP diastolic 33–51; PULSE 60–83; RESP 14–19; TEMP 36.3–37.4; O2SAT 89–94
[2019-07-05 06:05] LABS: Absolute Lymphocyte Count 1.84 X10^3/uL (0.83-4.51); Absolute Neutrophil Count 6.5 X10^3/uL (2.0-7.7); Basophil# 0.01 X10^3/uL; Basophil% 0.1 % (0-1); Hematocrit 32.9 % (40-54); Hemoglobin 10.4 g/dL (13.0-16.5); Lymphocyte # 1.84 X10^3/ul (4.0); Lymphocyte % 19.3 % (19-41); Mean Corp Hgb Conc 31.6 g/dL (32-36); Mean Corpuscular Volume 98.2 fL (80-94); Mean Platelet Vol. 10.8 fl (6.2-12.0); Monocyte# 1.06 X10^3/uL; Monocyte% 11.1 % (0-10); NRBC Flagged by Analyzer 0 % (0-5); Neutrophil # 6.54 X10^3/uL (2.7-7.7); Neutrophil % 68.8 % (47-70); POSITIVE MORPHOLOGY YES; Platelet Count 196 K/mm3 (150-450); RBC Distribution Width CV 13.6 % (11.6-14.6); RBC Distribution Width SD 48.9 fl (35.1-43.9); Red Blood Count 3.35 M/mm3 (4.6-6.2); White Blood Count 9.5 K/mm3 (4.4-11.0)
[2019-07-05 06:06] LABS: Differential Indicated SCAN CRITERIA MET
[2019-07-05 06:20] LABS: Anion Gap 2 (5-15); BUN 45 mg/dL (7-18); BUN/Creat Ratio 35.7 RATIO (10-20); CRP < 2.90 mg/L (0.0-3.0); Calcium,Total 8.5 mg/dL (8.5-10.1); Chloride 91 mmol/L (98-107); Creatinine, Serum 1.26 mg/dL (0.70-1.30); EST Glomerular Filtration Rate 58 mL/min (>60); Est Glom Filt Rate - Afr Amer 70 mL/min (>60); Estimated Creatinine Clearance 43.73 ml/min; Glucose 174 mg/dL (74-106); Magnesium 2.2 mg/dL (1.6-2.6); Phosphorus 2.5 mg/dL (2.5-4.9); Potassium 3.6 mmol/L (3.5-5.1); Sodium Level 137 mmol/L (136-145)
[2019-07-05 06:33] LABS: Platelet Estimate ADEQUATE (ADEQ)
[2019-07-05 06:34] LABS: Anisocytosis RARE; Macrocytosis RARE; Platelet Morphology LARGE; Red Cell Morphology N CHROM NORMAL (NORM C&C)
--- NOTE | 2019-07-05 07:20 | PCM.PN.PUL ---
Patient Problems: Active and Suspected Problems (Last Reviewed 03/13/19 @ 09:42 by rKystle Dumont NP-Bo) Hypoxia (Acute) Suspected COVID-19 virus infection (Acute) Community acquired bacterial pneumonia (Acute) COVID-19 (Acute) COPD exacerbation (Acute) Subjective: Patient did okay yesterday. Patient did receive convalescent serum without complications. Patient did have to have a Leiva placed secondary to urinary retention. Patient has been weaned to 45% high flow nasal cannula and no fevers were noted overnight. - Physical Exam Vitals/I&O's: Vital Signs Temp Pulse Resp BP Pulse Ox 37.2 C 67 17 101/37 L 93 07/05/19 04:00 07/05/19 05:55 07/05/19 04:00 07/05/19 04:00 07/05/19 05:55 Oxygen Flow Rate (L/min) 55 Oxygen Delivery Method CPAP Weight: 75.6 kg Body Mass Index (BMI) 26.6 Intake and Output for Last 24 Hours 07/03/19 07/04/19 07/05/19 23:59 23:59 23:59 Intake Total 480 / 480 720 / 960 240 / 240 Output Total 3300 / 3300 1400 / 1900 925 / 925 Balance -2820 / -2820 -680 / -940 -685 / -685 General: Alert, Oriented x3, Cooperative, - - Mild conversational dyspnea. HEENT: Atraumatic, PERRLA, EOMI, Normocephalic, - - No scleral icterus or injection noted Oral: Moist Mucosa, No Gingival or Mucosal Lesions/ Ulcerations Neck: Supple, No JVD, No Nodes, Trachea Midline Lungs: No rhonchi, No wheeze, No rales, Diminished, - - Symmetric expansion. Cardiovascular: Regular rate, Regular Rhythm, Normal S1, Normal S2, Murmur, No rub noted, No Gallop Abdomen: Bowel Sounds Present, Soft, Non Tender, Non-Distended Extremities: No cyanosis, No edema, Capillary Refill Less than 3 Seconds, Clubbing Skin: - - Skin tear left arm. No significant change compared to previous Musculoskeletal: No Tenderness to Palpation of Joints or Extremities Lymphatic: No Cervical, Supraclavicular, or Inguinal Adenopathy Neurological: Cranial nerves II-XII grossly intact, Neuro grossly intact, Motor Exam 5/5 strength throughout Psych/Mental Status: Normal Affect, Appropriate Microbiology Past 72 Hours 07/01/19 13:00 Urine, Random Streptococcus pneumoniae Antigen (M - Final 07/01/19 13:00 Urine Catheter - Catheter Legionella Antigen - Final 07/01/19 10:00 Blood Culture (Wb) - Right Forearm Blood Culture - Preliminary No growth in 48 hours. 07/01/19 09:50 Blood Culture (Wb) - Anticubital Left Blood Culture - Preliminary No growth in 48 hours. 07/01/19 13:00 Urine, Catheterized Urine Culture - Final Culture exhibits no growth. Laboratory Results 07/01/19 14:00: Blood Type O POSITIVE, Antibody Screen NEGATIVE 07/04/19 08:09: POC Glucose 301 H 07/04/19 12:07: POC Glucose 240 H 07/04/19 16:38: POC Glucose 306 H 07/04/19 21:02: POC Glucose 368 H 07/05/19 05:55: WBC 9.5, RBC 3.35 L, Hgb 10.4 L, Hct 32.9 L, MCV 98.2 H, MCH 31.0, MCHC 31.6 L, RDW Std Deviation 48.9 H, RDW Coeff of Delia 13.6, Plt Count 196, MPV 10.8, Immature Gran % (Auto) 0.700, Neut % (Auto) 68.8, Lymph % (Auto) 19.3, [place] % (Auto) 11.1 H, Eos % (Auto) 0.0, Baso % (Auto) 0.1, Absolute Neuts (auto) 6.5, Absolute Lymphs (auto) 1.84, Nucleated RBC % 0, Platelet Estimate ADEQUATE, Plt Morphology Comment LARGE, RBC Morphology N CHROM, Anisocytosis RARE, Macrocytosis RARE 07/05/19 05:55: Sodium 137, Potassium 3.6, Chloride 91 L, Carbon Dioxide 44.0 H, Anion Gap 2 L, BUN 45 H, Creatinine 1.26, Estim Creat Clear Calc 43.73, Est GFR (MDRD) Af Amer 70, Est GFR (MDRD) Non-Af 58 L, BUN/Creatinine Ratio 35.7 H, Glucose 174 H, Calcium 8.5, Phosphorus 2.5, Magnesium 2.2, C-React Prot Ext Range < 2.90 Current Medications Acetaminophen (Tylenol) 650 mg PO Q6H PRN PRN PRN Reason: Pain Score 1-10/Temp > 100.7 F Albuterol Sulfate (Ventolin Hfa (Sp)) 2 puff INHALATION Q4H PRN PRN PRN Reason: SHORTNESS OF BREATH Last Admin: 07/03/19 08:49 Dose: 2 puff Documented by: Amlodipine Besylate (Norvasc) 10 mg PO DAILY [facility] Last Admin: 07/04/19 08:39 Dose: 10 mg Documented by: Aspirin (Aspirin, Baby) 81 mg PO DAILY [facility] Last Admin: 07/04/19 08:41 Dose: 81 mg Documented by: Atorvastatin Calcium (Lipitor) 20 mg PO QHS [facility] Last Admin: 07/04/19 21:04 Dose: 20 mg Documented by: Azithromycin (Zithromax) 500 mg PO Q24 [facility] Benzonatate (Tessalon Perle) 200 mg PO TID PRN PRN PRN Reason: cough Dextrose (D50w Syringe) 0 gm IV X1 PRN; Protocol PRN Reason: Hypoglycemia Enoxaparin Sodium (Lovenox) 80 mg SC BID [facility] Last Admin: 07/04/19 21:04 Dose: 80 mg Documented by: Furosemide (Lasix) 40 mg PO BIDLX [facility] Last Admin: 07/04/19 16:54 Dose: 40 mg Documented by: Glimepiride (Amaryl) 1 mg PO DAILYCM [facility] Last Admin: 07/04/19 08:41 Dose: 1 mg Documented by: Glucagon () 1 mg IM .X1 PRN PRN Reason: Hypoglycemia Guaifenesin (Mucinex) 1,200 mg PO BID [facility] Last Admin: 07/04/19 21:05 Dose: 1,200 mg Documented by: Sodium Chloride () 250 mls @ 15 mls/hr IV .[id number] PRN PRN Reason: Saline Flush Sodium Chloride () 250 mls @ 15 mls/hr IV .[id number] PRN PRN Reason: Additional IVPB Infusion Insulin Glargine (Lantus (Bkc)) 15 units SC BID [facility] Last Admin: 07/04/19 21:03 Dose: 15 units Documented by: Insulin Human Lispro (Humalog Kwikpen (Bk)) [facility]; Protocol Last Admin: 07/04/19 21:02 Dose: 6 u Documented by: Metoprolol Succinate (Toprol Xl (Beta Estevan)) 50 mg PO DAILY [facility] Last Admin: 07/04/19 12:29 Dose: 50 mg Documented by: Ondansetron HCl (Zofran) 4 mg IV Q8H PRN PRN PRN Reason: NAUSEA/VOMITING Pioglitazone HCl (Actos) 45 mg PO DAILY [facility] Last Admin: 07/04/19 08:40 Dose: 45 mg Documented by: Potassium Chloride (K-Dur) 20 meq PO DAILYCM [facility] Prednisone () 40 mg PO DAILY@0800 [facility] Last Admin: 07/04/19 08:41 Dose: 40 mg Documented by: Sodium Chloride () 10 - 40 ml IV UD PRN PRN Reason: SALINE FLUSH Last Admin: 07/04/19 17:08 Dose: 10 ml Documented by: Tamsulosin HCl (Flomax) 0.4 mg PO DAILY@1730 [facility] Last Admin: 07/04/19 16:54 Dose: 0.4 mg Documented by: Umeclidinium [place] (Incruse Ellipta Inhaler) 1 puff IH DAILY [facility] Last Admin: 07/04/19 09:05 Dose: 1 puff Documented by: Medical Necessity - Tobacco Use Smoking Status: Former smoker Tobacco Use: Non-smoker Assessment/Plan All Active Problems (Last Reviewed 03/13/19 @ 09:42 by Krystle Dumont NP-C) Hypoxia (Acute) Bronchitis (Acute) Suspected COVID-19 virus infection (Acute) Community acquired bacterial pneumonia (Acute) COVID-19 (Acute) History of pneumonia (Acute) History of bronchitis (Acute) Hx of appendectomy (Resolved) COPD exacerbation (Acute) RECOMMENDATIONS: 1. Encourage incentive spirometer 2. Continue systemic anticoagulation 3. Wean oxygen as tolerated. Keep saturations 90 to 94% to avoid CO2 retention 4. Transition to p.o. steroids. Increase sliding scale. Continue insulin at current dosing IMPRESSIONS: 1. Acute on chronic combined respiratory failure secondary to COVID infection/advanced COPD Patient with COVID positive testing. Patient has had progressive hypoxia despite only day 5 of reported symptoms. Patient does have advanced COPD with an FEV1 of 37% of predicted. Respiratory status appears to be stabilizing. We will transition patient to p.o. steroids and anticipate weaning over the next 12 to 14 days. Patient on systemic anticoagulation. Given patient's CODE STATUS of DNR Comfort Care arrest without intubation, significant hypoxia and poor baseline pulmonary status, patient was given convalescent serum on 07/04/2019. Patient has been given an ID number of #[id number]. Patient has not had any significant decline in clinical condition, but still has advanced baseline disease leading to need for high flow oxygen. Patient does not wish to be intubated, but is open to BiPAP therapy if necessary 2. Type 2 diabetes mellitus, [id number] Patient only does not take insulin at baseline, but is on systemic steroids. Basal insulin will be held at current levels, but sliding scale will be increased. We will continue to follow. Likely not necessary to get a hemoglobin A1c from my perspective. 3. Hypertension/CAD/PAD/carotid stenosis/advanced age/multiple admissions?exacerbations Complicates care, management, recovery and prognosis. Okay to continue with baseline medications from my perspective. Likely okay to continue with CHIQUIS inhibitor as renal function has remained stable Inpatient E&M: 00090 [facility] Hosp L3
--- NOTE | 2019-07-05 07:26 | PCM.PN.HOSP ---
Patient Problems: Active and Suspected Problems (Last Reviewed 03/13/19 @ 09:42 by Krystle Dumont NP-Bo) Hypoxia (Acute) Suspected COVID-19 virus infection (Acute) Community acquired bacterial pneumonia (Acute) COVID-19 (Acute) COPD exacerbation (Acute) Reason for Visit: Follow-up on acute on chronic hypoxic respiratory failure/Acute COVID-19 pneumonia/COPD exacerbation Subjective: Patient was seen and examined. He complains of feeling the same. He remains on 55 L of oxygen but at a reduced FiO2 of 45%. He received conversant plasma yesterday, 07/05/19. Denied any diarrhea or abdominal pain or chest pain. Objective: Physical exam: General: Alert, Oriented x3, Cooperative, No apparent distress, - - on high flow oxygen, comfortable HEENT: Atraumatic, PERRLA, EOMI, Normocephalic Oral: Moist Mucosa Neck: Supple Lungs: Diminished Cardiovascular: Regular rate, Regular Rhythm, Normal S1, Normal S2, No murmurs Abdomen: Bowel Sounds Present, Soft, Non Tender, Non-Distended, No Hepato-splenomegaly Skin: No rashes, No breakdown Musculoskeletal: No Tenderness to Palpation of Joints or Extremities Neurological: Cranial nerves II-XII grossly intact Psych/Mental Status: Normal Affect, Appropriate Vitals/I&O's: Vital Signs Temp Pulse Resp BP Pulse Ox 98.9 F 67 17 101/37 L 93 07/05/19 04:00 07/05/19 05:55 07/05/19 04:00 07/05/19 04:00 07/05/19 05:55 Oxygen Flow Rate (L/min) 55 Oxygen Delivery Method CPAP Weight: 75.6 kg Body Mass Index (BMI) 26.6 Intake and Output for Last 24 Hours 07/03/19 07/04/19 07/05/19 23:59 23:59 23:59 Intake Total 480 / 480 720 / 960 240 / 240 Output Total 3300 / 3300 1400 / 1900 925 / 925 Balance -2820 / -2820 -680 / -940 -685 / -685 Microbiology Past 72 Hours 07/01/19 13:00 Urine, Random Streptococcus pneumoniae Antigen (M - Final 07/01/19 13:00 Urine Catheter - Catheter Legionella Antigen - Final 07/01/19 10:00 Blood Culture (Wb) - Right Forearm Blood Culture - Preliminary No growth in 48 hours. 07/01/19 09:50 Blood Culture (Wb) - Anticubital Left Blood Culture - Preliminary No growth in 48 hours. 07/01/19 13:00 Urine, Catheterized Urine Culture - Final Culture exhibits no growth. Laboratory Results 07/01/19 14:00: Blood Type O POSITIVE, Antibody Screen NEGATIVE 07/04/19 08:09: POC Glucose 301 H 07/04/19 12:07: POC Glucose 240 H 07/04/19 16:38: POC Glucose 306 H 07/04/19 21:02: POC Glucose 368 H 07/05/19 05:55: WBC 9.5, RBC 3.35 L, Hgb 10.4 L, Hct 32.9 L, MCV 98.2 H, MCH 31.0, MCHC 31.6 L, RDW Std Deviation 48.9 H, RDW Coeff of Delia 13.6, Plt Count 196, MPV 10.8, Immature Gran % (Auto) 0.700, Neut % (Auto) 68.8, Lymph % (Auto) 19.3, [place] % (Auto) 11.1 H, Eos % (Auto) 0.0, Baso % (Auto) 0.1, Absolute Neuts (auto) 6.5, Absolute Lymphs (auto) 1.84, Nucleated RBC % 0, Platelet Estimate ADEQUATE, Plt Morphology Comment LARGE, RBC Morphology N CHROM, Anisocytosis RARE, Macrocytosis RARE 07/05/19 05:55: Sodium 137, Potassium 3.6, Chloride 91 L, Carbon Dioxide 44.0 H, Anion Gap 2 L, BUN 45 H, Creatinine 1.26, Estim Creat Clear Calc 43.73, Est GFR (MDRD) Af Amer 70, Est GFR (MDRD) Non-Af 58 L, BUN/Creatinine Ratio 35.7 H, Glucose 174 H, Calcium 8.5, Phosphorus 2.5, Magnesium 2.2, C-React Prot Ext Range < 2.90 Current Medications Acetaminophen (Tylenol) 650 mg PO Q6H PRN PRN PRN Reason: Pain Score 1-10/Temp > 100.7 F Albuterol Sulfate (Ventolin Hfa (Sp)) 2 puff INHALATION Q4H PRN PRN PRN Reason: SHORTNESS OF BREATH Last Admin: 07/03/19 08:49 Dose: 2 puff Documented by: Amlodipine Besylate (Norvasc) 10 mg PO DAILY [facility] Last Admin: 07/04/19 08:39 Dose: 10 mg Documented by: Aspirin (Aspirin, Baby) 81 mg PO DAILY [facility] Last Admin: 07/04/19 08:41 Dose: 81 mg Documented by: Atorvastatin Calcium (Lipitor) 20 mg PO QHS [facility] Last Admin: 07/04/19 21:04 Dose: 20 mg Documented by: Azithromycin (Zithromax) 500 mg PO Q24 [facility] Benzonatate (Tessalon Perle) 200 mg PO TID PRN PRN PRN Reason: cough Dextrose (D50w Syringe) 0 gm IV X1 PRN; Protocol PRN Reason: Hypoglycemia Enoxaparin Sodium (Lovenox) 80 mg SC BID [facility] Last Admin: 07/04/19 21:04 Dose: 80 mg Documented by: Furosemide (Lasix) 40 mg PO BIDLX [facility] Last Admin: 07/04/19 16:54 Dose: 40 mg Documented by: Glimepiride (Amaryl) 1 mg PO DAILYCM [facility] Last Admin: 07/04/19 08:41 Dose: 1 mg Documented by: Glucagon () 1 mg IM .X1 PRN PRN Reason: Hypoglycemia Guaifenesin (Mucinex) 1,200 mg PO BID [facility] Last Admin: 07/04/19 21:05 Dose: 1,200 mg Documented by: Sodium Chloride () 250 mls @ 15 mls/hr IV .[id number] PRN PRN Reason: Saline Flush Sodium Chloride () 250 mls @ 15 mls/hr IV .[id number] PRN PRN Reason: Additional IVPB Infusion Insulin Glargine (Lantus (Bk)) 15 units SC BID [facility] Last Admin: 07/04/19 21:03 Dose: 15 units Documented by: Insulin Human Lispro (Humalog Kwikpen (Bk)) 0 unit SC [facility]; Protocol Last Admin: 07/04/19 21:02 Dose: 6 u Documented by: Metoprolol Succinate (Toprol Xl (Beta Estevan)) 50 mg PO DAILY [facility] Last Admin: 07/04/19 12:29 Dose: 50 mg Documented by: Ondansetron HCl (Zofran) 4 mg IV Q8H PRN PRN PRN Reason: NAUSEA/VOMITING Pioglitazone HCl (Actos) 45 mg PO DAILY [facility] Last Admin: 07/04/19 08:40 Dose: 45 mg Documented by: Potassium Chloride (K-Dur) 20 meq PO DAILYCM [facility] Prednisone () 40 mg PO DAILY@0800 [facility] Last Admin: 07/04/19 08:41 Dose: 40 mg Documented by: Sodium Chloride () 10 - 40 ml IV UD PRN PRN Reason: SALINE FLUSH Last Admin: 07/04/19 17:08 Dose: 10 ml Documented by: Tamsulosin HCl (Flomax) 0.4 mg PO DAILY@1730 [facility] Last Admin: 07/04/19 16:54 Dose: 0.4 mg Documented by: Umeclidinium [place] (Incruse Ellipta Inhaler) 1 puff IH DAILY [facility] Last Admin: 07/04/19 09:05 Dose: 1 puff Documented by: STROKE Vital Signs/Narrative: Vital Signs Temp Pulse Resp BP Pulse Ox 07/05/19 05:55 67 93 07/05/19 04:00 98.9 F 68 17 101/37 L 92 Medical Necessity - Tobacco Use Smoking Status: Former smoker Tobacco Use: Non-smoker Assessment/Plan All Active Problems (Last Reviewed 03/13/19 @ 09:42 by Krystle Dumont NP-C) Hypoxia (Acute) Bronchitis (Acute) Suspected COVID-19 virus infection (Acute) Community acquired bacterial pneumonia (Acute) COVID-19 (Acute) History of pneumonia (Acute) History of bronchitis (Acute) Hx of appendectomy (Resolved) COPD exacerbation (Acute) 83 year old M with past medical history of COPD with chronic hypoxic respiratory failure on 4 L of oxygen, hypertension, type II DM, CAD status post stents, PAD, who comes in with complaints of shortness of breath ongoing for 2 days. 1. Acute on chronic respiratory failure secondary to acute COVID infection/pneumonia/Possible acute COPD exacerbation, Remains on increased oxygen requirements. Patient was on 4 L of oxygen at baseline Will continue to wean off oxygen as tolerated. Pulmonology following. 2. Acute COVID related pneumonia, SARS?COVID?19 test positive D-dimer elevated at 1.60; will hold off on doing CTA of the chest for now Lactic acid was 1.0, Procalcitonin 0.07, CRP ,2.90 on admission BnPep 200, CRP <2.90, Ferritin 123 [employer] Pancake [employer] and ID consulted Given convalescent plasma 07/04/19. 3. Possible Acute COPD exacerbation secondary to #2 Now on po prednisone, will complete azithromycin last dose today(5th dose) Continue on Albuterol inhaler prn 4. Hypomagnesemia, resolved 5. Type 2 DM, BS are remains uncontrolled secondary to IV steroids. HgBA1c is 7.7, Continue on Lantus 15 units BID, Actos and glimepiride Continue to hold off metformin Continue with blood glucose checks and insulin sliding scale 6. Hypertension, controlled Continue on amlodipine We will continue to hold lisinopril/hydrochlorothiazide for now 7. CAD s/p stents/carotid stenosis/PAD, continue on aspirin 8. DVT prophylaxis with therapeutic Lovenox 9. Code status: DNR-CCA Inpatient E&M: 44807 Subs Hosp L2
[2019-07-05] MEDS: Insulin Lispro 100 UNIT/ML INSULN.PEN SC ×4 (08:39→21:29)
[2019-07-05] MEDS: predniSONE 20 MG Tablet 40 MG PO (08:40)
[2019-07-05] MEDS: Glimepiride 1 MG Tablet PO (08:40)
[2019-07-05] MEDS: Pioglitazone Hydrochloride 45 MG Tablet PO (08:41)
[2019-07-05] MEDS: Aspirin 81 MG TAB.CHEW PO (08:41)
[2019-07-05] MEDS: Metoprolol(XL)Succ 50 MG Tablet PO (08:41)
[2019-07-05] MEDS: Azithromycin 250 MG Tablet 500 MG PO (08:41)
[2019-07-05] MEDS: amLODIPine 10 MG Tablet PO (08:41)
[2019-07-05] MEDS: Furosemide 40 MG Tablet PO (08:41)
[2019-07-05] MEDS: Enoxaparin 80 MG/0.8 ML Syringe SC ×2 (08:42→21:29)
[2019-07-05] MEDS: guaiFENesin 1,200 MG Tablet 1200 MG PO ×2 (08:42→21:29)
[2019-07-05] MEDS: Umeclidinium Bromide Inhaler 1 PUFF IH (08:43)
[2019-07-05 09:26] LABS: Bedside Glucose 157 mg/dL (70-110)
[2019-07-05 12:20] LABS: Bedside Glucose 224 mg/dL (70-110)
[2019-07-05] MEDS: Tamsulosin HCl 0.4 MG Capsule PO (16:42)
[2019-07-05] MEDS: Furosemide 20 MG Tablet PO (16:43)
[2019-07-05 17:00] LABS: Bedside Glucose 226 mg/dL (70-110)
[2019-07-05] MEDS: Atorvastatin Calcium 20 MG Tablet PO (21:29)
--- NOTE | 2019-07-05 23:00 | CPS ---
Water bag changed
[2019-07-06] VITALS (15 sets, daily range): BP systolic 104–125; BP diastolic 37–65; PULSE 63–80; RESP 13–20; TEMP 36.3–37.1; O2SAT 90–96
[2019-07-06 00:41] LABS: Bedside Glucose 261 mg/dL (70-110)
--- NOTE | 2019-07-06 06:38 | PN_ITS ---
Patient Problems: Active and Suspected Problems (Last Reviewed 03/13/19 @ 09:42 by CLAUDETTE Jeffery) Hypoxia (Acute) Suspected COVID-19 virus infection (Acute) Community acquired bacterial pneumonia (Acute) COVID-19 (Acute) COPD exacerbation (Acute) Subjective: Patient did well overnight. No acute issues were reported. Patient did not have any fever noted. Patient continues to be on high flow nasal cannula and tolerating well. Unfortunately, patient has remained at 45% consistently. - Physical Exam Vitals/I&O's: Vital Signs Temp Pulse Resp BP Pulse Ox 37.1 C 73 16 119/37 L 92 07/06/19 02:00 07/06/19 04:00 07/06/19 02:00 07/06/19 02:00 07/06/19 02:00 Oxygen Flow Rate (L/min) 15 Oxygen Delivery Method CPAP Weight: 76.4 kg Body Mass Index (BMI) 26.6 Intake and Output for Last 24 Hours 07/04/19 07/05/19 07/06/19 23:59 23:59 23:59 Intake Total 720 / 960 1330 / 1330 Output Total 1400 / 1900 2150 / 2150 Balance -680 / -940 -820 / -820 General: Alert, Oriented x3, Cooperative, No apparent distress, - - Mild conversational dyspnea. HEENT: Atraumatic, PERRLA, EOMI, Normocephalic, - - No scleral icterus or injection noted. No epistaxis. Oral: Moist Mucosa, No Gingival or Mucosal Lesions/ Ulcerations Neck: Supple, No JVD, No Nodes, Trachea Midline Lungs: No rhonchi, No wheeze, No rales, Diminished, - - Symmetric expansion. No dullness to percussion. Cardiovascular: Regular rate, Normal S1, Normal S2, Murmur, No rub noted, No Gallop Abdomen: Bowel Sounds Present, Soft, Non Tender, Non-Distended Extremities: No cyanosis, No edema, Capillary Refill Less than 3 Seconds, Clubbing Skin: No rashes, No breakdown Musculoskeletal: No Tenderness to Palpation of Joints or Extremities Lymphatic: No Cervical, Supraclavicular, or Inguinal Adenopathy Neurological: Cranial nerves II-XII grossly intact, Neuro grossly intact, Motor Exam 5/5 strength throughout Psych/Mental Status: Alert and oriented to time, place, person, mood and affect Microbiology Past 72 Hours 07/01/19 13:00 Urine, Random Streptococcus pneumoniae Antigen (M - Final 07/01/19 13:00 Urine Catheter - Catheter Legionella Antigen - Final 07/01/19 10:00 Blood Culture (Wb) - Right Forearm Blood Culture - Preliminary No growth in 48 hours. 07/01/19 09:50 Blood Culture (Wb) - Anticubital Left Blood Culture - Preliminary No growth in 48 hours. 07/01/19 13:00 Urine, Catheterized Urine Culture - Final Culture exhibits no growth. Laboratory Results 07/05/19 08:34: POC Glucose 157 H 07/05/19 12:09: POC Glucose 224 H 07/05/19 16:41: POC Glucose 226 H 07/05/19 21:28: POC Glucose 261 H Current Medications Acetaminophen (Tylenol) 650 mg PO Q6H PRN PRN PRN Reason: Pain Score 1-10/Temp > 100.7 F Albuterol Sulfate (Ventolin Hfa (Sp)) 2 puff INHALATION Q4H PRN PRN PRN Reason: SHORTNESS OF BREATH Last Admin: 07/03/19 08:49 Dose: 2 puff Documented by: Amlodipine Besylate (Norvasc) 10 mg PO DAILY [facility] Last Admin: 07/05/19 08:41 Dose: 10 mg Documented by: Aspirin (Aspirin, Baby) 81 mg PO DAILY [facility] Last Admin: 07/05/19 08:41 Dose: 81 mg Documented by: Atorvastatin Calcium (Lipitor) 20 mg PO QHS [facility] Last Admin: 07/05/19 21:29 Dose: 20 mg Documented by: Benzonatate (Tessalon Perle) 200 mg PO TID PRN PRN PRN Reason: cough Dextrose (D50w Syringe) 0 gm IV X1 PRN; Protocol PRN Reason: Hypoglycemia Enoxaparin Sodium (Lovenox) 80 mg SC BID [facility] Last Admin: 07/05/19 21:29 Dose: 80 mg Documented by: Furosemide (Lasix) 20 mg PO BIDLX [facility] Last Admin: 07/05/19 16:43 Dose: 20 mg Documented by: Glimepiride (Amaryl) 1 mg PO DAILYCM [facility] Last Admin: 07/05/19 08:40 Dose: 1 mg Documented by: Glucagon () 1 mg IM .X1 PRN PRN Reason: Hypoglycemia Guaifenesin (Mucinex) 1,200 mg PO BID [facility] Last Admin: 07/05/19 21:29 Dose: 1,200 mg Documented by: Sodium Chloride () 250 mls @ 15 mls/hr IV .[id number] PRN PRN Reason: Saline Flush Sodium Chloride () 250 mls @ 15 mls/hr IV .[id number] PRN PRN Reason: Additional IVPB Infusion Insulin Glargine (Lantus ([facility])) 15 units SC BID [facility] Last Admin: 07/05/19 21:29 Dose: 15 units Documented by: Insulin Human Lispro (Humalog Kwikpen ([facility])) 0 unit SC ACHS [facility]; Protocol Last Admin: 07/05/19 21:29 Dose: 6 u Documented by: Metoprolol Succinate (Toprol Xl (Beta Estevan)) 50 mg PO DAILY [facility] Last Admin: 07/05/19 08:41 Dose: 50 mg Documented by: Ondansetron HCl (Zofran) 4 mg IV Q8H PRN PRN PRN Reason: NAUSEA/VOMITING Pioglitazone HCl (Actos) 45 mg PO DAILY [facility] Last Admin: 07/05/19 08:41 Dose: 45 mg Documented by: Potassium Chloride (K-Dur) 20 meq PO DAILY [facility] Last Admin: 07/05/19 08:41 Dose: 20 meq Documented by: Prednisone () 40 mg PO DAILY [facility] Last Admin: 07/05/19 08:40 Dose: 40 mg Documented by: Sodium Chloride () 10 - 40 ml IV UD PRN PRN Reason: SALINE FLUSH Last Admin: 07/04/19 17:08 Dose: 10 ml Documented by: Tamsulosin HCl (Flomax) 0.4 mg PO DAILY@1730 [facility] Last Admin: 07/05/19 16:42 Dose: 0.4 mg Documented by: Umeclidinium [place] (Incruse Ellipta Inhaler) 1 puff IH DAILY [facility] Last Admin: 07/05/19 08:43 Dose: 1 puff Documented by: Medical Necessity - Tobacco Use Smoking Status: Former smoker Tobacco Use: Non-smoker Assessment/Plan All Active Problems (Last Reviewed 03/13/19 @ 09:42 by Krystle Dumont NP-C) Hypoxia (Acute) Bronchitis (Acute) Suspected COVID-19 virus infection (Acute) Community acquired bacterial pneumonia (Acute) COVID-19 (Acute) History of pneumonia (Acute) History of bronchitis (Acute) Hx of appendectomy (Resolved) COPD exacerbation (Acute) RECOMMENDATIONS: 1. Encourage incentive spirometer 2. Continue systemic anticoagulation and slow diuresis 3. Wean oxygen as tolerated. Keep saturations 90 to 94% to avoid CO2 retention 4. Transition to p.o. steroids. Increase sliding scale. Continue insulin at current dosing 5. Attempt to wean flows on high nasal cannula IMPRESSIONS: 1. Acute on chronic combined respiratory failure secondary to COVID infection/advanced COPD Patient with COVID positive testing. Patient has had progressive hypoxia despite only day 5 of reported symptoms. Patient does have advanced COPD with an FEV1 of 37% of predicted. Respiratory status appears to be stabilizing. We will transition patient to p.o. steroids and anticipate weaning over the next 12 to 14 days. Patient on systemic anticoagulation. Given patient's CODE STATUS of DNR Comfort Care arrest without intubation, significant hypoxia and poor baseline pulmonary status, patient was given convalescent serum on 07/04/2019. Patient has been given an ID number of #[id number]. Patient has not had any significant decline in clinical condition, but still has advanced baseline disease leading to need for high flow oxygen. Patient does not wish to be i ntubated, but is open to BiPAP therapy if necessary. Patient has been receiving gentle diuresis and tolerating well, but not having significant change in FiO2 requirements. Will attempt to wean the flow in the high nasal cannula 2. Type 2 diabetes mellitus, [id number] Patient only does not take insulin at baseline, but is on systemic steroids. Basal insulin will be held at current levels, but sliding scale will be increased. We will continue to follow. Likely not necessary to get a hemoglobin A1c from my perspective. 3. Hypertension/CAD/PAD/carotid stenosis/advanced age/multiple admissions?exacerbations Complicates care, management, recovery and prognosis. Okay to continue with baseline medications from my perspective. Likely okay to continue with CHIQUIS inhibitor as renal function has remained stable Inpatient E&M: [id number] [facility] Hosp L3
--- NOTE | 2019-07-06 07:38 | PCM.PN.HOSP ---
Patient Problems: Active and Suspected Problems (Last Reviewed 03/13/19 @ 09:42 by Krystle Dumont NP-Bo) Hypoxia (Acute) Suspected COVID-19 virus infection (Acute) Community acquired bacterial pneumonia (Acute) COVID-19 (Acute) COPD exacerbation (Acute) Reason for Visit: Follow-up on acute on chronic hypoxic respiratory failure/Acute COVID-19 pneumonia/COPD exacerbation Subjective: Patient was seen and examined. He feels improved today. Currently on 6L oxygen. No fevers or chills. Objective: Physical exam: General: Alert, Oriented x3, Cooperative, No apparent distress, - - on high flow oxygen, comfortable HEENT: Atraumatic, PERRLA, EOMI, Normocephalic Oral: Moist Mucosa Neck: Supple Lungs: Diminished Cardiovascular: Regular rate, Regular Rhythm, Normal S1, Normal S2, No murmurs Abdomen: Bowel Sounds Present, Soft, Non Tender, Non-Distended, No Hepato-splenomegaly Skin: No rashes, No breakdown Musculoskeletal: No Tenderness to Palpation of Joints or Extremities Neurological: Cranial nerves II-XII grossly intact Psych/Mental Status: Normal Affect, Appropriate Vitals/I&O's: Vital Signs Temp Pulse Resp BP Pulse Ox 98.7 F 70 16 119/37 L 91 07/06/19 02:00 07/06/19 05:15 07/06/19 05:15 07/06/19 02:00 07/06/19 05:15 Oxygen Flow Rate (L/min) 15 Oxygen Delivery Method CPAP Weight: 76.4 kg Body Mass Index (BMI) 26.6 Intake and Output for Last 24 Hours 07/04/19 07/05/19 07/06/19 23:59 23:59 23:59 Intake Total 720 / 960 1330 / 1330 200 / 200 Output Total 1400 / 1900 2150 / 2150 400 / 400 Balance -680 / -940 -820 / -820 -200 / -200 Microbiology Past 72 Hours 07/01/19 13:00 Urine, Random Streptococcus pneumoniae Antigen (M - Final 07/01/19 13:00 Urine Catheter - Catheter Legionella Antigen - Final 07/01/19 10:00 Blood Culture (Wb) - Right Forearm Blood Culture - Preliminary No growth in 48 hours. 07/01/19 09:50 Blood Culture (Wb) - Anticubital Left Blood Culture - Preliminary No growth in 48 hours. 07/01/19 13:00 Urine, Catheterized Urine Culture - Final Culture exhibits no growth. Laboratory Results 07/05/19 08:34: POC Glucose 157 H 07/05/19 12:09: POC Glucose 224 H 07/05/19 16:41: POC Glucose 226 H 07/05/19 21:28: POC Glucose 261 H Current Medications Acetaminophen (Tylenol) 650 mg PO Q6H PRN PRN PRN Reason: Pain Score 1-10/Temp > 100.7 F Albuterol Sulfate (Ventolin Hfa (Sp)) 2 puff INHALATION Q4H PRN PRN PRN Reason: SHORTNESS OF BREATH Last Admin: 07/03/19 08:49 Dose: 2 puff Documented by: Amlodipine Besylate (Norvasc) 10 mg PO DAILY [facility] Last Admin: 07/05/19 08:41 Dose: 10 mg Documented by: Aspirin (Aspirin, Baby) 81 mg PO DAILY [facility] Last Admin: 07/05/19 08:41 Dose: 81 mg Documented by: Atorvastatin Calcium (Lipitor) 20 mg PO QHS [facility] Last Admin: 07/05/19 21:29 Dose: 20 mg Documented by: Benzonatate (Tessalon Perle) 200 mg PO TID PRN PRN PRN Reason: cough Dextrose (D50w Syringe) 0 gm IV X1 PRN; Protocol PRN Reason: Hypoglycemia Enoxaparin Sodium (Lovenox) 80 mg SC BID [facility] Last Admin: 07/05/19 21:29 Dose: 80 mg Documented by: Furosemide (Lasix) 20 mg PO BIDLX [facility] Last Admin: 07/05/19 16:43 Dose: 20 mg Documented by: Glimepiride (Amaryl) 1 mg PO DAILYCM [facility] Last Admin: 07/05/19 08:40 Dose: 1 mg Documented by: Glucagon () 1 mg IM .X1 PRN PRN Reason: Hypoglycemia Guaifenesin (Mucinex) 1,200 mg PO BID [facility] Last Admin: 07/05/19 21:29 Dose: 1,200 mg Documented by: Sodium Chloride () 250 mls @ 15 mls/hr IV .[id number] PRN PRN Reason: Saline Flush Sodium Chloride () 250 mls @ 15 mls/hr IV .[id number] PRN PRN Reason: Additional IVPB Infusion Insulin Glargine (Lantus ([facility])) 15 units SC BID [facility] Last Admin: 07/05/19 21:29 Dose: 15 units Documented by: Insulin Human Lispro (Humalog Kwikpen ([facility])) 0 unit SC ACHS [facility]; Protocol Last Admin: 07/05/19 21:29 Dose: 6 u Documented by: Metoprolol Succinate (Toprol Xl (Beta Estevan)) 50 mg PO DAILY [facility] Last Admin: 07/05/19 08:41 Dose: 50 mg Documented by: Ondansetron HCl (Zofran) 4 mg IV Q8H PRN PRN PRN Reason: NAUSEA/VOMITING Pioglitazone HCl (Actos) 45 mg PO DAILY [facility] Last Admin: 07/05/19 08:41 Dose: 45 mg Documented by: Potassium Chloride (K-Dur) 20 meq PO DAILY [facility] Last Admin: 07/05/19 08:41 Dose: 20 meq Documented by: Prednisone () 40 mg PO DAILY [facility] Last Admin: 07/05/19 08:40 Dose: 40 mg Documented by: Sodium Chloride () 10 - 40 ml IV UD PRN PRN Reason: SALINE FLUSH Last Admin: 07/04/19 17:08 Dose: 10 ml Documented by: Tamsulosin HCl (Flomax) 0.4 mg PO BID [facility] Umeclidinium [place] (Incruse Ellipta Inhaler) 1 puff IH DAILY [facility] Last Admin: 07/05/19 08:43 Dose: 1 puff Documented by: STROKE Vital Signs/Narrative: Vital Signs Pulse Resp Pulse Ox 07/06/19 05:15 70 16 91 07/06/19 04:00 73 Medical Necessity - Tobacco Use Smoking Status: Former smoker Tobacco Use: Non-smoker Assessment/Plan All Active Problems (Last Reviewed 03/13/19 @ 09:42 by Krystle Dumont NP-C) Hypoxia (Acute) Bronchitis (Acute) Suspected COVID-19 virus infection (Acute) Community acquired bacterial pneumonia (Acute) COVID-19 (Acute) History of pneumonia (Acute) History of bronchitis (Acute) Hx of appendectomy (Resolved) COPD exacerbation (Acute) 83 year old M with past medical history of COPD with chronic hypoxic respiratory failure on 4 L of oxygen, hypertension, type II DM, CAD status post stents, PAD, who comes in with complaints of shortness of breath ongoing for 2 days. 1. Acute on chronic respiratory failure secondary to acute COVID infection/pneumonia/Possible acute COPD exacerbation, Improving, on 6L oxygen now. Patient was on 4-6 L of oxygen at baseline Will continue to wean off oxygen as tolerated. Pulmonology following. 2. Acute COVID related pneumonia, SARS?COVID?19 test positive D-dimer elevated at 1.60; will hold off on doing CTA of the chest for now Lactic acid was 1.0, Procalcitonin 0.07, CRP ,2.90 on admission BnPep 200, CRP <2.90, Ferritin 123 [facility] Education Coordinator and ID consulted Given convalescent plasma 07/04/19. 3. Possible Acute COPD exacerbation secondary to #2 On po prednisone, completed antibiotics Continue on Albuterol inhaler prn 4. Hypomagnesemia, resolved 5. Type 2 DM, BS are remains uncontrolled secondary to IV steroids. HgBA1c is 7.7, Continue on Lantus 15 units BID, Actos and glimepiride Continue to hold off metformin Continue with blood glucose checks and insulin sliding scale 6. Hypertension, controlled Continue on amlodipine We will continue to hold lisinopril/hydrochlorothiazide for now 7. CAD s/p stents/carotid stenosis/PAD, continue on aspirin 8. DVT prophylaxis with therapeutic Lovenox 9. Code status: DNR-CCA Inpatient E&M: 74260 Subs Hosp L2
[2019-07-06] MEDS: Insulin Lispro 100 UNIT/ML INSULN.PEN SC ×4 (08:47→21:28)
[2019-07-06] MEDS: Enoxaparin 80 MG/0.8 ML Syringe SC (08:47)
[2019-07-06] MEDS: Pioglitazone Hydrochloride 45 MG Tablet PO (08:48)
[2019-07-06] MEDS: predniSONE 20 MG Tablet 40 MG PO (08:48)
[2019-07-06] MEDS: Metoprolol(XL)Succ 50 MG Tablet PO (08:48)
[2019-07-06] MEDS: Glimepiride 1 MG Tablet PO (08:48)
[2019-07-06] MEDS: guaiFENesin 1,200 MG Tablet 1200 MG PO ×2 (08:49→21:14)
[2019-07-06] MEDS: amLODIPine 10 MG Tablet PO (08:49)
[2019-07-06] MEDS: Tamsulosin HCl 0.4 MG Capsule PO ×2 (08:49→21:14)
[2019-07-06] MEDS: Furosemide 20 MG Tablet PO ×2 (08:49→16:49)
[2019-07-06] MEDS: Aspirin 81 MG TAB.CHEW PO (08:49)
[2019-07-06] MEDS: Umeclidinium Bromide Inhaler 1 PUFF IH (08:50)
[2019-07-06 09:11] LABS: Bedside Glucose 192 mg/dL (70-110)
[2019-07-06 10:37] LABS: Anion Gap 6 (5-15); BUN 50 mg/dL (7-18); Calcium,Total 8.3 mg/dL (8.5-10.1); Chloride 89 mmol/L (98-107); Creatinine, Serum 1.35 mg/dL (0.70-1.30); EST Glomerular Filtration Rate 54 mL/min (>60); Est Glom Filt Rate - Afr Amer 65 mL/min (>60); Estimated Creatinine Clearance 40.81 ml/min; Glucose 247 mg/dL (74-106); Potassium 3.2 mmol/L (3.5-5.1); Sodium Level 135 mmol/L (136-145)
[2019-07-06] MEDS: 0.9% Saline Lock 10 ML Syringe IV (11:56)
[2019-07-06 12:10] LABS: Bedside Glucose 238 mg/dL (70-110)
[2019-07-06] MEDS: Magnesium Hydroxide 30 ML UDC PO (16:49)
[2019-07-06 21:01] LABS: Bedside Glucose 325 mg/dL (70-110)
[2019-07-06] MEDS: Atorvastatin Calcium 20 MG Tablet PO (21:14)
[2019-07-06 21:41] LABS: Bedside Glucose 343 mg/dL (70-110)
[2019-07-07] VITALS (13 sets, daily range): BP systolic 102–113; BP diastolic 38–63; PULSE 59–76; RESP 15–22; TEMP 36.4–37.6; O2SAT 90–98
[2019-07-07 04:22] LABS: Absolute Lymphocyte Count 1.28 X10^3/uL (0.83-4.51); Absolute Neutrophil Count 5.7 X10^3/uL (2.0-7.7); Basophil# 0.02 X10^3/uL; Basophil% 0.3 % (0-1); Hematocrit 33.1 % (40-54); Hemoglobin 10.5 g/dL (13.0-16.5); Lymphocyte # 1.28 X10^3/ul (4.0); Lymphocyte % 16.8 % (19-41); Mean Corp Hgb Conc 31.7 g/dL (32-36); Mean Corpuscular Hgb 31.2 pg (27.0-32.0); Mean Corpuscular Volume 98.2 fL (80-94); Monocyte# 0.62 X10^3/uL; Monocyte% 8.1 % (0-10); NRBC Flagged by Analyzer 0 % (0-5); Neutrophil # 5.65 X10^3/uL (2.7-7.7); Platelet Count 200 K/mm3 (150-450); RBC Distribution Width CV 13.6 % (11.6-14.6); Red Blood Count 3.37 M/mm3 (4.6-6.2); White Blood Count 7.6 K/mm3 (4.4-11.0)
[2019-07-07 04:37] LABS: ALB/GLOB Ratio 0.9 RATIO (0.9-2.4); AST(SGOT) 15 U/L (15-37); Alanine Aminotransfer ALT/SGPT 28 U/L (16-61); Albumin, Serum 2.8 g/dL (3.2-5.0); Alkaline Phosphatase 87 U/L (45-117); Anion Gap 4 (5-15); BUN 51 mg/dL (7-18); BUN/Creat Ratio 39.2 RATIO (10-20); Calcium,Total 8.5 mg/dL (8.5-10.1); Chloride 93 mmol/L (98-107); EST Glomerular Filtration Rate 56 mL/min (>60); Est Glom Filt Rate - Afr Amer 68 mL/min (>60); Estimated Creatinine Clearance 42.38 ml/min; Glucose 196 mg/dL (74-106); Protein, Total 5.8 g/dL (6.4-8.2); Sodium Level 136 mmol/L (136-145)
--- NOTE | 2019-07-07 07:07 | PN_ITS ---
Subjective: The patient was seen and examined at the bedside this morning. Events from the last 24 hours have been reviewed. The patient currently has a low-grade fever, but remains hemodynamically stable on 4 L/min via nasal cannula. The patient does have a baseline supplemental oxygen requirement of 3 L/min at rest and 6 L/min with exertion. Objective: The patient's most recent lab work, culture data and imaging studies have all been personally reviewed. Coronavirus PCR was positive on June 30. Strep and urine Legionella antigens were negative. Blood and urine cultures have shown no growth to date. General: Alert, Cooperative, No apparent distress HEENT: Atraumatic, Normocephalic Oral: No Gingival or Mucosal Lesions/ Ulcerations Neck: Supple, No Nodes, Trachea Midline Lungs: No rhonchi, No wheeze, No rales, Diminished Cardiovascular: Regular rate, Regular Rhythm, Normal S1, Normal S2, No murmurs Abdomen: Bowel Sounds Present, Soft, Non Tender Extremities: No edema Skin: No breakdown Musculoskeletal: No Tenderness to Palpation of Joints or Extremities Lymphatic: No Cervical, Supraclavicular, or Inguinal Adenopathy Neurological: Neuro grossly intact Psych/Mental Status: Normal Affect, Appropriate Vital Signs Temp Pulse Resp BP Pulse Ox 99.7 F H 59 L 15 102/39 L 98 07/07/19 03:15 07/07/19 04:00 07/07/19 03:15 07/07/19 03:15 07/07/19 03:15 Oxygen Flow Rate (L/min) 4 Oxygen Delivery Method Nasal Cannula Weight: 167 lb 5.294 oz Body Mass Index (BMI) 26.6 Intake and Output for Last 24 Hours 07/05/19 07/06/19 07/07/19 23:59 23:59 23:59 Intake Total 1330 / 1330 1240 / 1240 240 / 240 Output Total 2150 / 2150 1475 / 1475 400 / 400 Balance -820 / -820 -235 / -235 -160 / -160 Labs (Last 48 Hours) 07/05/19 07/05/19 07/05/19 08:34 12:09 16:41 WBC RBC Hgb Hct MCV MCH MCHC RDW Std Deviation RDW Coeff of Delia Plt Count MPV Immature Gran % (Auto) Neut % (Auto) Lymph % (Auto) [place] % (Auto) Eos % (Auto) Baso % (Auto) Absolute Neuts (auto) Absolute Lymphs (auto) Nucleated RBC % Sodium Potassium Chloride Carbon Dioxide Anion Gap BUN Creatinine Estim Creat Clear Calc Est GFR (MDRD) Af Amer Est GFR (MDRD) Non-Af BUN/Creatinine Ratio Glucose Calcium Total Bilirubin AST ALT Alkaline Phosphatase Total Protein Albumin Globulin Albumin/Globulin Ratio POC Glucose 157 H 224 H 226 H 07/05/19 07/06/19 07/06/19 21:28 08:44 10:10 WBC RBC Hgb Hct MCV MCH MCHC RDW Std Deviation RDW Coeff of Delia Plt Count MPV Immature Gran % (Auto) Neut % (Auto) Lymph % (Auto) [place] % (Auto) Eos % (Auto) Baso % (Auto) Absolute Neuts (auto) Absolute Lymphs (auto) Nucleated RBC % Sodium 135 L Potassium 3.2 L Chloride 89 L Carbon Dioxide 40.0 H Anion Gap 6 BUN 50 H Creatinine 1.35 H Estim Creat Clear Calc 40.81 Est GFR (MDRD) Af Amer 65 Est GFR (MDRD) Non-Af 54 L BUN/Creatinine Ratio 37.0 H Glucose 247 H Calcium 8.3 L Total Bilirubin AST ALT Alkaline Phosphatase Total Protein Albumin Globulin Albumin/Globulin Ratio POC Glucose 261 H 192 H 07/06/19 07/06/19 07/06/19 11:53 16:47 21:26 WBC RBC Hgb Hct MCV MCH MCHC RDW Std Deviation RDW Coeff of Delia Plt Count MPV Immature Gran % (Auto) Neut % (Auto) Lymph % (Auto) [place] % (Auto) Eos % (Auto) Baso % (Auto) Absolute Neuts (auto) Absolute Lymphs (auto) Nucleated RBC % Sodium Potassium Chloride Carbon Dioxide Anion Gap BUN Creatinine Estim Creat Clear Calc Est GFR (MDRD) Af Amer Est GFR (MDRD) Non-Af BUN/Creatinine Ratio Glucose Calcium Total Bilirubin AST ALT Alkaline Phosphatase Total Protein Albumin Globulin Albumin/Globulin Ratio POC Glucose 238 H 325 H 343 H 07/07/19 07/07/19 04:10 04:10 WBC 7.6 RBC 3.37 L Hgb 10.5 L Hct 33.1 L MCV 98.2 H MCH 31.2 MCHC 31.7 L RDW Std Deviation 48.0 H RDW Coeff of Delia 13.6 Plt Count 200 MPV 11.0 Immature Gran % (Auto) 0.800 Neut % (Auto) 74.0 H Lymph % (Auto) 16.8 L [place] % (Auto) 8.1 Eos % (Auto) 0.0 Baso % (Auto) 0.3 Absolute Neuts (auto) 5.7 Absolute Lymphs (auto) 1.28 Nucleated RBC % 0 Sodium 136 Potassium 4.0 Chloride 93 L Carbon Dioxide 39.0 H Anion Gap 4 L BUN 51 H Creatinine 1.30 Estim Creat Clear Calc 42.38 Est GFR (MDRD) Af Amer 68 Est GFR (MDRD) Non-Af 56 L BUN/Creatinine Ratio 39.2 H Glucose 196 H Calcium 8.5 Total Bilirubin 0.40 AST 15 ALT 28 Alkaline Phosphatase 87 Total Protein 5.8 L Albumin 2.8 L Globulin 3.0 Albumin/Globulin Ratio 0.9 POC Glucose Microbiology 07/01/19 10:00 Blood Culture (Wb) - Right Forearm Blood Culture - Final No growth in 5 days. 07/01/19 09:50 Blood Culture (Wb) - Anticubital Left Blood Culture - Final No growth in 5 days. Clinical Impression(s) from Imaging Studies Chest X-Ray 07/01/19 10:20 IMPRESSION: Small left pleural effusion with the left basilar infiltration and/or atelectasis as well as increased markings at the right lung base suggestive of atelectasis and/or infiltrate. Follow-up is recommended. Electronically Signed: Renan Catrachita, at 10:34 EDT , Service support , Medical Necessity - Tobacco Use Smoking Status: Former smoker Tobacco Use: Non-smoker Assessment/Plan All Active Problems (Last Reviewed 03/13/19 @ 09:42 by Krystle Dumont, RAFA-Bo) Hypoxia (Acute) Bronchitis (Acute) Suspected COVID-19 virus infection (Acute) Community acquired bacterial pneumonia (Acute) COVID-19 (Acute) History of pneumonia (Acute) History of bronchitis (Acute) Hx of appendectomy (Resolved) COPD exacerbation (Acute) RECOMMENDATIONS: 1. Continue current supportive measures with supplemental oxygen. Wean to maintain saturations at or above 90%. 2. Continue systemic anticoagulation until discharge home. 3. Continue bronchodilator therapy and prednisone. Plan for steroid taper at discharge. 4. Perform walking oximetry study prior to consideration for discharge home. 5. Encourage incentive spirometer use and mobilize patient as tolerated. IMPRESSIONS: 1. 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 He did test positive for coronavirus on presentation to the hospital. Oxygenation status is improving. He does have a baseline 3 L/min requirement at rest and 6 L/min with exertion. Plan to continue scheduled bronchodilator therapy along with steroids. Plan for steroid taper at discharge. Perform walking oximetry study prior to consideration for discharge home. 2. Type 2 diabetes mellitus, [id number] Continue Lantus and sliding scale insulin coverage. 3. Hypertension/CAD/PAD/carotid stenosis/advanced age/multiple admissions?exacerbations Complicates care, management, recovery and prognosis. Okay to continue baseline home medications as tolerated. This note was generated with [employer] dictation software. It may contain incorrect words, spelling, and punctuation that were not noted in checking the note before signing. Inpatient E&M: 48380 [facility] Hosp L3
[2019-07-07 07:26] LABS: Bedside Glucose 149 mg/dL (70-110)
--- NOTE | 2019-07-07 07:38 | PN_ITS ---
Patient Problems: Active and Suspected Problems (Last Reviewed 03/13/19 @ 09:42 by CLAUDETTE Jeffery) Hypoxia (Acute) Suspected COVID-19 virus infection (Acute) Community acquired bacterial pneumonia (Acute) COVID-19 (Acute) COPD exacerbation (Acute) Reason for Visit: Follow-up on acute on chronic hypoxic respiratory failure/Acute COVID-19 pneumonia/COPD exacerbation Subjective: Patient is an 83-year-old gentleman with multiple comorbidities admitted with progressive shortness of breath patient was diagnosed with acute on chronic hypoxic respiratory failure secondary to acute viral pneumonia from COVID 19. Objective: GENERAL: cooperative appears ill looking HEENT: Atraumatic; EYES; Anicteric, Normal Conjunctiva NECK; supple, normal thyroid, RESPIRATORY: Diminished to auscultation CARDIOVASCULAR: Regular S1 S2, GI: soft, normoactive bowel sounds, : No Renal angle tenderness; EXTREMITIES: No edema, no clubbing, MUSCULOSKELETAL: no muscle waisting NEURO: Awake; no lateralizing signs. SKIN: No Rash PSYCH; Flat affect Vitals/I&O's: Vital Signs Temp Pulse Resp BP Pulse Ox 99.7 F H 59 L 15 102/39 L 98 07/07/19 03:15 07/07/19 04:00 07/07/19 03:15 07/07/19 03:15 07/07/19 03:15 Oxygen Flow Rate (L/min) 4 Oxygen Delivery Method Nasal Cannula Weight: 75.9 kg Body Mass Index (BMI) 26.6 Intake and Output for Last 24 Hours 07/05/19 07/06/19 07/07/19 23:59 23:59 23:59 Intake Total 1330 / 1330 1240 / 1240 240 / 240 Output Total 2150 / 2150 1475 / 1475 400 / 400 Balance -820 / -820 -235 / -235 -160 / -160 Microbiology Past 72 Hours 07/01/19 10:00 Blood Culture (Wb) - Right Forearm Blood Culture - Final No growth in 5 days. 07/01/19 09:50 Blood Culture (Wb) - Anticubital Left Blood Culture - Final No growth in 5 days. Laboratory Results 07/06/19 08:44: POC Glucose 192 H 07/06/19 10:10: Sodium 135 L, Potassium 3.2 L, Chloride 89 L, Carbon Dioxide 40.0 H, Anion Gap 6, BUN 50 H, Creatinine 1.35 H, Estim Creat Clear Calc 40.81, Est GFR (MDRD) Af Amer 65, Est GFR (MDRD) Non-Af 54 L, BUN/Creatinine Ratio 37.0 H, Glucose 247 H, Calcium 8.3 L 07/06/19 11:53: POC Glucose 238 H 07/06/19 16:47: POC Glucose 325 H 07/06/19 21:26: POC Glucose 343 H 07/07/19 04:10: WBC 7.6, RBC 3.37 L, Hgb 10.5 L, Hct 33.1 L, MCV 98.2 H, MCH 31.2, MCHC 31.7 L, RDW Std Deviation 48.0 H, RDW Coeff of Delia 13.6, Plt Count 200, MPV 11.0, Immature Gran % (Auto) 0.800, Neut % (Auto) 74.0 H, Lymph % (Auto) 16.8 L, [place] % (Auto) 8.1, Eos % (Auto) 0.0, Baso % (Auto) 0.3, Absolute Neuts (auto) 5.7, Absolute Lymphs (auto) 1.28, Nucleated RBC % 0 07/07/19 04:10: Sodium 136, Potassium 4.0, Chloride 93 L, Carbon Dioxide 39.0 H, Anion Gap 4 L, BUN 51 H, Creatinine 1.30, Estim Creat Clear Calc 42.38, Est GFR (MDRD) Af Amer 68, Est GFR (MDRD) Non-Af 56 L, BUN/Creatinine Ratio 39.2 H, Glucose 196 H, Calcium 8.5, Total Bilirubin 0.40, AST 15, ALT 28, Alkaline Phosphatase 87, Total Protein 5.8 L, Albumin 2.8 L, Globulin 3.0, Albumin/Globulin Ratio 0.9 07/07/19 07:08: POC Glucose 149 H Current Medications Acetaminophen (Tylenol) 650 mg PO Q6H PRN PRN PRN Reason: Pain Score 1-10/Temp > 100.7 F Albuterol Sulfate (Ventolin Hfa (Sp)) 2 puff INHALATION Q4H PRN PRN PRN Reason: SHORTNESS OF BREATH Last Admin: 07/03/19 08:49 Dose: 2 puff Documented by: Amlodipine Besylate (Norvasc) 10 mg PO DAILY [facility] Last Admin: 07/06/19 08:49 Dose: 10 mg Documented by: Aspirin (Aspirin, Baby) 81 mg PO DAILY [facility] Last Admin: 07/06/19 08:49 Dose: 81 mg Documented by: Atorvastatin Calcium (Lipitor) 20 mg PO QHS [facility] Last Admin: 07/06/19 21:14 Dose: 20 mg Documented by: Benzonatate (Tessalon Perle) 200 mg PO TID PRN PRN PRN Reason: cough Dextrose (D50w Syringe) 0 gm IV X1 PRN; Protocol PRN Reason: Hypoglycemia Enoxaparin Sodium (Lovenox) 80 mg SC BID [facility] Last Admin: 07/06/19 15:43 Dose: Not Given Documented by: Furosemide (Lasix) 20 mg PO BIDLX [facility] Last Admin: 07/06/19 16:49 Dose: 20 mg Documented by: Glimepiride (Amaryl) 1 mg PO DAILYCM [facility] Last Admin: 07/06/19 08:48 Dose: 1 mg Documented by: Glucagon () 1 mg IM .X1 PRN PRN Reason: Hypoglycemia Guaifenesin (Mucinex) 1,200 mg PO BID [facility] Last Admin: 07/06/19 21:14 Dose: 1,200 mg Documented by: Sodium Chloride () 250 mls @ 15 mls/hr IV .[id number] PRN PRN Reason: Saline Flush Sodium Chloride () 250 mls @ 15 mls/hr IV .[id number] PRN PRN Reason: Additional IVPB Infusion Insulin Glargine (Lantus (Bkc)) 18 units SC 1100,2200 [facility] Last Admin: 07/06/19 21:28 Dose: 18 u Documented by: Insulin Human Lispro (Humalog Kwikpen (Bkc)) 0 unit SC ACHS [facility]; Protocol Last Admin: 07/07/19 07:10 Dose: Not Given Documented by: Magnesium Hydroxide (Milk Of Magnesia) 30 ml PO DAILY PRN PRN PRN Reason: Constipation Last Admin: 07/06/19 16:49 Dose: 30 ml Documented by: Metoprolol Succinate (Toprol Xl (Beta Estevan)) 50 mg PO DAILY [facility] Last Admin: 07/06/19 08:48 Dose: 50 mg Documented by: Ondansetron HCl (Zofran) 4 mg IV Q8H PRN PRN PRN Reason: NAUSEA/VOMITING Pioglitazone HCl (Actos) 45 mg PO DAILY [facility] Last Admin: 07/06/19 08:48 Dose: 45 mg Documented by: Potassium Chloride (K-Dur) 20 meq PO DAILY [facility] Last Admin: 07/06/19 08:49 Dose: 20 meq Documented by: Prednisone () 40 mg PO DAILY [facility] Last Admin: 07/06/19 08:48 Dose: 40 mg Documented by: Sodium Chloride () 10 - 40 ml IV UD PRN PRN Reason: SALINE FLUSH Last Admin: 07/06/19 11:56 Dose: 10 ml Documented by: Tamsulosin HCl (Flomax) 0.4 mg PO BID [facility] Last Admin: 07/06/19 21:14 Dose: 0.4 mg Documented by: Umeclidinium [place] (Incruse Ellipta Inhaler) 1 puff IH DAILY [facility] Last Admin: 07/06/19 08:50 Dose: 1 puff Documented by: STROKE Vital Signs/Narrative: Vital Signs Pulse 07/07/19 04:00 59 L Medical Necessity - Tobacco Use Smoking Status: Former smoker Tobacco Use: Non-smoker Assessment/Plan All Active Problems (Last Reviewed 03/13/19 @ 09:42 by Krystle Dumont NP-C) Hypoxia (Acute) Bronchitis (Acute) Suspected COVID-19 virus infection (Acute) Community acquired bacterial pneumonia (Acute) COVID-19 (Acute) History of pneumonia (Acute) History of bronchitis (Acute) Hx of appendectomy (Resolved) COPD exacerbation (Acute) Patient is an 83-year-old gentleman with multiple comorbidities admitted with progressive shortness of breath patient was diagnosed with acute on chronic hypoxic respiratory failure secondary to acute viral pneumonia from COVID 19. 1. Acute on chronic hypoxic respiratory failure ?Secondary to viral pneumonia from COVID 19 in addition to COPD with acute exacerbation 2. Acute viral pneumonia from COVID 19 ?Patient was managed with supplemental oxygen in addition to antibiotics. Patient did receive convalescent plasma on 07/04/2019 patient remains on high flow oxygen with plans to wean off as needed 3. COPD with acute exacerbation ?Precipitated by above managed with antibiotics in addition to prednisone and aerosol treatment as needed 4. Diabetes mellitus type 2 ?Did continue with home regimen except for metformin. Was also placed on Accu- Cheks before meals and at bedtime with sliding scale coverage 5. Hypertension ~ blood pressure controlled, home medications continued with dose adjustment as needed 6. Coronary artery disease ?With previous stent placement 7. Hypomagnesemia ?Corrected per protocol 8. Peripheral arterial disease ?Patient is on antiplatelet 9. DVT prophylaxis ~ on enoxaparin Inpatient E&M: 18824 Subs Hosp L2
[2019-07-07] MEDS: Glimepiride 1 MG Tablet PO (09:27)
[2019-07-07] MEDS: guaiFENesin 1,200 MG Tablet 1200 MG PO ×2 (09:27→21:44)
[2019-07-07] MEDS: Tamsulosin HCl 0.4 MG Capsule PO ×2 (09:27→21:44)
[2019-07-07] MEDS: predniSONE 20 MG Tablet 40 MG PO (09:27)
[2019-07-07] MEDS: amLODIPine 10 MG Tablet PO (09:28)
[2019-07-07] MEDS: Pioglitazone Hydrochloride 45 MG Tablet PO (09:28)
[2019-07-07] MEDS: Aspirin 81 MG TAB.CHEW PO (09:28)
[2019-07-07] MEDS: Furosemide 20 MG Tablet PO ×2 (09:29→18:36)
[2019-07-07] MEDS: Metoprolol(XL)Succ 50 MG Tablet PO (09:29)
[2019-07-07] MEDS: Enoxaparin 80 MG/0.8 ML Syringe SC ×2 (09:30→21:44)
[2019-07-07] MEDS: Umeclidinium Bromide Inhaler 1 PUFF IH (09:40)
--- NOTE | 2019-07-07 10:05 | CASEMGMT ---
Addendum entered by Reagan Elizalde 07/07/19 13:52: PT/OT has not worked with pt yet. Requested they contact CM when they do to discuss dc needs of SNF vs HHC> Ciro OVIEDOM Original Note: RN CM Note. Participated in ICU interdisciplinary rounds. PT currently on 4L NC/has oxygen through [facility] 4L during day and 6L with ambulation. Request to OT during rounds to update CM when PT/OT completed today with recommendation for SNF vs Home. Can then speak with pt re: dc needs. Ciro STATON RN ACM
[2019-07-07] MEDS: Insulin Lispro 100 UNIT/ML INSULN.PEN SC ×3 (11:32→21:44)
[2019-07-07 11:46] LABS: Bedside Glucose 196 mg/dL (70-110)
--- NOTE | 2019-07-07 14:37 | CASEMGMT ---
ANDRE CHANDLER Note: spoke with PT/OT. Recommendation is for Home PT/OT on dc. ANDRE CHANDLER called to patient in room. Pt is agreeable to [facility], no preference on agency, agreeable to [facility]. Call to Thelma @ [facility]. Referral given and notified pt had COVID-19 positive testing on 07.01.2019. Thelma will take to client operations manager to review. Ciro STATON RN ACM
--- NOTE | 2019-07-07 15:05 | PCM.PN.ID ---
Patient Problems: Active and Suspected Problems (Last Reviewed 03/13/19 @ 09:42 by Krystle Dumont NP-Bo) Hypoxia (Acute) Suspected COVID-19 virus infection (Acute) Community acquired bacterial pneumonia (Acute) COVID-19 (Acute) COPD exacerbation (Acute) Subjective: Feeling ok, still some dyspnea. No fever. - Physical Exam Vitals/I&O's: Vital Signs Temp Pulse Resp BP Pulse Ox 97.6 F L 71 16 108/38 L 95 07/07/19 12:00 07/07/19 12:00 07/07/19 12:00 07/07/19 12:00 07/07/19 12:00 Oxygen Flow Rate (L/min) 4 Oxygen Delivery Method Nasal Cannula Weight: 75.9 kg Body Mass Index (BMI) 26.6 Intake and Output for Last 24 Hours 07/05/19 07/06/19 07/07/19 23:59 23:59 23:59 Intake Total 1330 / 1330 1240 / 1240 360 / 360 Output Total 2150 / 2150 1475 / 1475 400 / 400 Balance -820 / -820 -235 / -235 -40 / -40 General: Alert, Cooperative, No apparent distress Lungs: Diminished Cardiovascular: Regular rate, Regular Rhythm Abdomen: Soft, Non Tender, Non-Distended Skin: No rashes Microbiology Past 72 Hours 07/01/19 10:00 Blood Culture (Wb) - Right Forearm Blood Culture - Final No growth in 5 days. 07/01/19 09:50 Blood Culture (Wb) - Anticubital Left Blood Culture - Final No growth in 5 days. Laboratory Results 07/06/19 16:47: POC Glucose 325 H 07/06/19 21:26: POC Glucose 343 H 07/07/19 04:10: WBC 7.6, RBC 3.37 L, Hgb 10.5 L, Hct 33.1 L, MCV 98.2 H, MCH 31.2, MCHC 31.7 L, RDW Std Deviation 48.0 H, RDW Coeff of Delia 13.6, Plt Count 200, MPV 11.0, Immature Gran % (Auto) 0.800, Neut % (Auto) 74.0 H, Lymph % (Auto) 16.8 L, [place] % (Auto) 8.1, Eos % (Auto) 0.0, Baso % (Auto) 0.3, Absolute Neuts (auto) 5.7, Absolute Lymphs (auto) 1.28, Nucleated RBC % 0 07/07/19 04:10: Sodium 136, Potassium 4.0, Chloride 93 L, Carbon Dioxide 39.0 H, Anion Gap 4 L, BUN 51 H, Creatinine 1.30, Estim Creat Clear Calc 42.38, Est GFR (MDRD) Af Amer 68, Est GFR (MDRD) Non-Af 56 L, BUN/Creatinine Ratio 39.2 H, Glucose 196 H, Calcium 8.5, Total Bilirubin 0.40, AST 15, ALT 28, Alkaline Phosphatase 87, Total Protein 5.8 L, Albumin 2.8 L, Globulin 3.0, Albumin/Globulin Ratio 0.9 07/07/19 07:08: POC Glucose 149 H 07/07/19 11:28: POC Glucose 196 H Current Medications Acetaminophen (Tylenol) 650 mg PO Q6H PRN PRN PRN Reason: Pain Score 1-10/Temp > 100.7 F Albuterol Sulfate (Ventolin Hfa (Sp)) 2 puff INHALATION Q4H PRN PRN PRN Reason: SHORTNESS OF BREATH Last Admin: 07/03/19 08:49 Dose: 2 puff Documented by: Amlodipine Besylate (Norvasc) 10 mg PO DAILY [facility] Last Admin: 07/07/19 09:28 Dose: 10 mg Documented by: Aspirin (Aspirin, Baby) 81 mg PO DAILY [facility] Last Admin: 07/07/19 09:28 Dose: 81 mg Documented by: Atorvastatin Calcium (Lipitor) 20 mg PO QHS [facility] Last Admin: 07/06/19 21:14 Dose: 20 mg Documented by: Benzonatate (Tessalon Perle) 200 mg PO TID PRN PRN PRN Reason: cough Dextrose (D50w Syringe) 0 gm IV X1 PRN; Protocol PRN Reason: Hypoglycemia Enoxaparin Sodium (Lovenox) 80 mg SC BID [facility] Last Admin: 07/07/19 09:30 Dose: 80 mg Documented by: Furosemide (Lasix) 20 mg PO BIDLX [facility] Last Admin: 07/07/19 09:29 Dose: 20 mg Documented by: Glimepiride (Amaryl) 1 mg PO DAILYCM [facility] Last Admin: 07/07/19 09:27 Dose: 1 mg Documented by: Glucagon () 1 mg IM .X1 PRN PRN Reason: Hypoglycemia Guaifenesin (Mucinex) 1,200 mg PO BID [facility] Last Admin: 07/07/19 09:27 Dose: 1,200 mg Documented by: Sodium Chloride () 250 mls @ 15 mls/hr IV .[id number] PRN PRN Reason: Saline Flush Sodium Chloride () 250 mls @ 15 mls/hr IV .[id number] PRN PRN Reason: Additional IVPB Infusion Insulin Glargine (Lantus ([facility])) 18 units SC 1100,2200 [facility] Last Admin: 07/07/19 11:33 Dose: 18 u Documented by: Insulin Human Lispro (Humalog Kwikpen ([facility])) 0 unit SC ACHS [facility]; Protocol Last Admin: 07/07/19 11:32 Dose: 2 u Documented by: Magnesium Hydroxide (Milk Of Magnesia) 30 ml PO DAILY PRN PRN PRN Reason: Constipation Last Admin: 07/06/19 16:49 Dose: 30 ml Documented by: Metoprolol Succinate (Toprol Xl (Beta Estevan)) 50 mg PO DAILY [facility] Last Admin: 07/07/19 09:29 Dose: 50 mg Documented by: Ondansetron HCl (Zofran) 4 mg IV Q8H PRN PRN PRN Reason: NAUSEA/VOMITING Pioglitazone HCl (Actos) 45 mg PO DAILY [facility] Last Admin: 07/07/19 09:28 Dose: 45 mg Documented by: Potassium Chloride (K-Dur) 20 meq PO DAILY [facility] Last Admin: 07/07/19 09:28 Dose: 20 meq Documented by: Prednisone () 40 mg PO DAILY [facility] Last Admin: 07/07/19 09:27 Dose: 40 mg Documented by: Sodium Chloride () 10 - 40 ml IV UD PRN PRN Reason: SALINE FLUSH Last Admin: 07/06/19 11:56 Dose: 10 ml Documented by: Tamsulosin HCl (Flomax) 0.4 mg PO BID [facility] Last Admin: 07/07/19 09:27 Dose: 0.4 mg Documented by: Umeclidinium [place] (Incruse Ellipta Inhaler) 1 puff IH DAILY [facility] Last Admin: 07/07/19 09:40 Dose: 1 puff Documented by: Medical Necessity - Tobacco Use Smoking Status: Former smoker Tobacco Use: Non-smoker Route of nutrition/ use of supplements: [] Nutritional Intake: [] IV Site: [] Leiva Catheter: [] - Assessment/Plan Antibiotics: [] Assessment/Plan: [] Active and Suspected Problems (Last Reviewed 03/13/19 @ 09:42 by Krystle Dumont NP-C) Hypoxia (Acute) Suspected COVID-19 virus infection (Acute) Community acquired bacterial pneumonia (Acute) COVID-19 (Acute) COPD exacerbation (Acute) COVID with copd exacerbation - bcx neg so far. PCT, ferritin, CRP, trop were normal. D-dimer was elevated. On steroids and therapeutic lovenox. No fever here. Completed short course azithro. Convalescent plasma given 07/03. O2 overall improved. Will follow.
[2019-07-07 16:55] LABS: Bedside Glucose 243 mg/dL (70-110)
[2019-07-07] MEDS: Atorvastatin Calcium 20 MG Tablet PO (21:44)
[2019-07-07 22:01] LABS: Bedside Glucose 260 mg/dL (70-110)
[2019-07-08] VITALS (10 sets, daily range): BP systolic 100–115; BP diastolic 43–48; PULSE 54–72; RESP 13–20; TEMP 36.1–36.6; O2SAT 88–100
[2019-07-08 04:28] LABS: Absolute Lymphocyte Count 1.52 X10^3/uL (0.83-4.51); Absolute Neutrophil Count 6.2 X10^3/uL (2.0-7.7); Basophil# 0.01 X10^3/uL; Basophil% 0.1 % (0-1); Eosinophil# 0.02 X10^3/uL; Eosinophils% 0.2 % (0-5); Hematocrit 31.8 % (40-54); Lymphocyte # 1.52 X10^3/ul (4.0); Lymphocyte % 17.8 % (19-41); Mean Corp Hgb Conc 31.4 g/dL (32-36); Mean Corpuscular Hgb 30.9 pg (27.0-32.0); Mean Corpuscular Volume 98.1 fL (80-94); Mean Platelet Vol. 11.3 fl (6.2-12.0); Monocyte% 8.2 % (0-10); NRBC Flagged by Analyzer 0 % (0-5); Neutrophil # 6.23 X10^3/uL (2.7-7.7); Platelet Count 210 K/mm3 (150-450); RBC Distribution Width CV 13.9 % (11.6-14.6); RBC Distribution Width SD 48.6 fl (35.1-43.9); Red Blood Count 3.24 M/mm3 (4.6-6.2); White Blood Count 8.5 K/mm3 (4.4-11.0)
[2019-07-08 04:45] LABS: AST(SGOT) 13 U/L (15-37); Alanine Aminotransfer ALT/SGPT 26 U/L (16-61); Albumin, Serum 2.8 g/dL (3.2-5.0); Alkaline Phosphatase 82 U/L (45-117); Anion Gap 3 (5-15); BUN 52 mg/dL (7-18); BUN/Creat Ratio 42.6 RATIO (10-20); Calcium,Total 8.4 mg/dL (8.5-10.1); Chloride 93 mmol/L (98-107); Creatinine, Serum 1.22 mg/dL (0.70-1.30); EST Glomerular Filtration Rate 60 mL/min (>60); Est Glom Filt Rate - Afr Amer 73 mL/min (>60); Estimated Creatinine Clearance 45.16 ml/min; Globulin 2.9 g/dL (2.2-4.2); Glucose 127 mg/dL (74-106); Potassium 3.9 mmol/L (3.5-5.1); Protein, Total 5.7 g/dL (6.4-8.2); Sodium Level 136 mmol/L (136-145)
--- NOTE | 2019-07-08 07:07 | PCM.PN.PUL ---
Subjective: The patient was seen and examined at the bedside this morning. Events from the last 24 hours have been reviewed. The patient is currently afebrile, hemodynamically stable and maintaining appropriate oxygen saturations on 5 L/min via nasal cannula. Objective: The patient's most recent lab work, culture data and imaging studies have all been personally reviewed. Coronavirus PCR was positive on June 30. Strep and urine Legionella antigens were negative. Blood and urine cultures have shown no growth to date. - Physical Exam Vitals/I&O's: Vital Signs Temp Pulse Resp BP Pulse Ox 97.9 F 64 13 115/48 L 100 07/08/19 06:00 07/08/19 06:00 07/08/19 06:00 07/08/19 06:00 07/08/19 06:00 Oxygen Flow Rate (L/min) 5 Oxygen Delivery Method Nasal Cannula Weight: 162 lb 7.691 oz Body Mass Index (BMI) 26.6 Intake and Output for Last 24 Hours 07/06/19 07/07/19 07/08/19 23:59 23:59 23:59 Intake Total 1240 / 1240 840 / 840 60 / 60 Output Total 1475 / 1475 400 / 400 Balance -235 / -235 440 / 440 60 / 60 General: Alert, No apparent distress HEENT: Atraumatic, Normocephalic Oral: No Gingival or Mucosal Lesions/ Ulcerations Neck: Supple, No Nodes, Trachea Midline Lungs: Diminished Cardiovascular: Regular rate, Regular Rhythm, Normal S1, Normal S2 Abdomen: Bowel Sounds Present, Soft, Non Tender Extremities: No clubbing, No cyanosis, No edema Skin: No breakdown Musculoskeletal: No Tenderness to Palpation of Joints or Extremities Lymphatic: No Cervical, Supraclavicular, or Inguinal Adenopathy Neurological: Neuro grossly intact Psych/Mental Status: Normal Affect, Appropriate Labs (Last 48 Hours) 07/06/19 07/06/19 07/06/19 08:44 10:10 11:53 WBC RBC Hgb Hct MCV MCH MCHC RDW Std Deviation RDW Coeff of Delia Plt Count MPV Immature Gran % (Auto) Neut % (Auto) Lymph % (Auto) [place] % (Auto) Eos % (Auto) Baso % (Auto) Absolute Neuts (auto) Absolute Lymphs (auto) Nucleated RBC % Sodium 135 L Potassium 3.2 L Chloride 89 L Carbon Dioxide 40.0 H Anion Gap 6 BUN 50 H Creatinine 1.35 H Estim Creat Clear Calc 40.81 Est GFR (MDRD) Af Amer 65 Est GFR (MDRD) Non-Af 54 L BUN/Creatinine Ratio 37.0 H Glucose 247 H Calcium 8.3 L Total Bilirubin AST ALT Alkaline Phosphatase Total Protein Albumin Globulin Albumin/Globulin Ratio POC Glucose 192 H 238 H 07/06/19 07/06/19 07/07/19 16:47 21:26 04:10 WBC 7.6 RBC 3.37 L Hgb 10.5 L Hct 33.1 L MCV 98.2 H MCH 31.2 MCHC 31.7 L RDW Std Deviation 48.0 H RDW Coeff of Delia 13.6 Plt Count 200 MPV 11.0 Immature Gran % (Auto) 0.800 Neut % (Auto) 74.0 H Lymph % (Auto) 16.8 L [place] % (Auto) 8.1 Eos % (Auto) 0.0 Baso % (Auto) 0.3 Absolute Neuts (auto) 5.7 Absolute Lymphs (auto) 1.28 Nucleated RBC % 0 Sodium Potassium Chloride Carbon Dioxide Anion Gap BUN Creatinine Estim Creat Clear Calc Est GFR (MDRD) Af Amer Est GFR (MDRD) Non-Af BUN/Creatinine Ratio Glucose Calcium Total Bilirubin AST ALT Alkaline Phosphatase Total Protein Albumin Globulin Albumin/Globulin Ratio POC Glucose 325 H 343 H 07/07/19 07/07/19 07/07/19 04:10 07:08 11:28 WBC RBC Hgb Hct MCV MCH MCHC RDW Std Deviation RDW Coeff of Delia Plt Count MPV Immature Gran % (Auto) Neut % (Auto) Lymph % (Auto) [place] % (Auto) Eos % (Auto) Baso % (Auto) Absolute Neuts (auto) Absolute Lymphs (auto) Nucleated RBC % Sodium 136 Potassium 4.0 Chloride 93 L Carbon Dioxide 39.0 H Anion Gap 4 L BUN 51 H Creatinine 1.30 Estim Creat Clear Calc 42.38 Est GFR (MDRD) Af Amer 68 Est GFR (MDRD) Non-Af 56 L BUN/Creatinine Ratio 39.2 H Glucose 196 H Calcium 8.5 Total Bilirubin 0.40 AST 15 ALT 28 Alkaline Phosphatase 87 Total Protein 5.8 L Albumin 2.8 L Globulin 3.0 Albumin/Globulin Ratio 0.9 POC Glucose 149 H 196 H 05/18/20 05/18/20 05/19/20 16:41 21:40 04:15 WBC 8.5 RBC 3.24 L Hgb 10.0 L Hct 31.8 L MCV 98.1 H MCH 30.9 MCHC 31.4 L RDW Std Deviation 48.6 H RDW Coeff of Delia 13.9 Plt Count 210 MPV 11.3 Immature Gran % (Auto) 0.700 Neut % (Auto) 73.0 H Lymph % (Auto) 17.8 L [place] % (Auto) 8.2 Eos % (Auto) 0.2 Baso % (Auto) 0.1 Absolute Neuts (auto) 6.2 Absolute Lymphs (auto) 1.52 Nucleated RBC % 0 Sodium Potassium Chloride Carbon Dioxide Anion Gap BUN Creatinine Estim Creat Clear Calc Est GFR (MDRD) Af Amer Est GFR (MDRD) Non-Af BUN/Creatinine Ratio Glucose Calcium Total Bilirubin AST ALT Alkaline Phosphatase Total Protein Albumin Globulin Albumin/Globulin Ratio POC Glucose 243 H 260 H 07/08/19 04:15 WBC RBC Hgb Hct MCV MCH MCHC RDW Std Deviation RDW Coeff of Delia Plt Count MPV Immature Gran % (Auto) Neut % (Auto) Lymph % (Auto) [place] % (Auto) Eos % (Auto) Baso % (Auto) Absolute Neuts (auto) Absolute Lymphs (auto) Nucleated RBC % Sodium 136 Potassium 3.9 Chloride 93 L Carbon Dioxide 40.0 H Anion Gap 3 L BUN 52 H Creatinine 1.22 Estim Creat Clear Calc 45.16 Est GFR (MDRD) Af Amer 73 Est GFR (MDRD) Non-Af 60 BUN/Creatinine Ratio 42.6 H Glucose 127 H Calcium 8.4 L Total Bilirubin 0.40 AST 13 L ALT 26 Alkaline Phosphatase 82 Total Protein 5.7 L Albumin 2.8 L Globulin 2.9 Albumin/Globulin Ratio 1.0 POC Glucose Microbiology 07/01/19 10:00 Blood Culture (Wb) - Right Forearm Blood Culture - Final No growth in 5 days. 07/01/19 09:50 Blood Culture (Wb) - Anticubital Left Blood Culture - Final No growth in 5 days. Clinical Impression(s) from Imaging Studies Chest X-Ray 07/01/19 10:20 IMPRESSION: Small left pleural effusion with the left basilar infiltration and/or atelectasis as well as increased markings at the right lung base suggestive of atelectasis and/or infiltrate. Follow-up is recommended. Electronically Signed: Renan Domínguez, at 10:34 EDT , Service support , Current Medications Acetaminophen (Tylenol) 650 mg PO Q6H PRN PRN PRN Reason: Pain Score 1-10/Temp > 100.7 F Albuterol Sulfate (Ventolin Hfa (Sp)) 2 puff INHALATION Q4H PRN PRN PRN Reason: SHORTNESS OF BREATH Last Admin: 07/03/19 08:49 Dose: 2 puff Documented by: Amlodipine Besylate (Norvasc) 10 mg PO DAILY [facility] Last Admin: 07/07/19 09:28 Dose: 10 mg Documented by: Aspirin (Aspirin, Baby) 81 mg PO DAILY [facility] Last Admin: 07/07/19 09:28 Dose: 81 mg Documented by: Atorvastatin Calcium (Lipitor) 20 mg PO QHS [facility] Last Admin: 07/07/19 21:44 Dose: 20 mg Documented by: Benzonatate (Tessalon Perle) 200 mg PO TID PRN PRN PRN Reason: cough Dextrose (D50w Syringe) 0 gm IV X1 PRN; Protocol PRN Reason: Hypoglycemia Enoxaparin Sodium (Lovenox) 80 mg SC BID [facility] Last Admin: 07/07/19 21:44 Dose: 80 mg Documented by: Furosemide (Lasix) 20 mg PO BIDLX [facility] Last Admin: 07/07/19 18:36 Dose: 20 mg Documented by: Glimepiride (Amaryl) 1 mg PO DAILYCM [facility] Last Admin: 07/07/19 09:27 Dose: 1 mg Documented by: Glucagon () 1 mg IM .X1 PRN PRN Reason: Hypoglycemia Guaifenesin (Mucinex) 1,200 mg PO BID [facility] Last Admin: 07/07/19 21:44 Dose: 1,200 mg Documented by: Sodium Chloride () 250 mls @ 15 mls/hr IV .[id number] PRN PRN Reason: Saline Flush Sodium Chloride () 250 mls @ 15 mls/hr IV .[id number] PRN PRN Reason: Additional IVPB Infusion Insulin Glargine (Lantus (Bkc)) 18 units SC 1100,2200 [facility] Last Admin: 07/07/19 21:45 Dose: 18 u Documented by: Insulin Human Lispro (Humalog Kwikpen (Bkc)) 0 unit SC ACHS [facility]; Protocol Last Admin: 07/07/19 21:44 Dose: 6 u Documented by: Magnesium Hydroxide (Milk Of Magnesia) 30 ml PO DAILY PRN PRN PRN Reason: Constipation Last Admin: 07/06/19 16:49 Dose: 30 ml Documented by: Metoprolol Succinate (Toprol Xl (Beta Estevan)) 50 mg PO DAILY [facility] Last Admin: 07/07/19 09:29 Dose: 50 mg Documented by: Ondansetron HCl (Zofran) 4 mg IV Q8H PRN PRN PRN Reason: NAUSEA/VOMITING Pioglitazone HCl (Actos) 45 mg PO DAILY [facility] Last Admin: 07/07/19 09:28 Dose: 45 mg Documented by: Potassium Chloride (K-Dur) 20 meq PO DAILY [facility] Last Admin: 07/07/19 09:28 Dose: 20 meq Documented by: Prednisone () 40 mg PO DAILY [facility] Last Admin: 07/07/19 09:27 Dose: 40 mg Documented by: Sodium Chloride () 10 - 40 ml IV UD PRN PRN Reason: SALINE FLUSH Last Admin: 07/06/19 11:56 Dose: 10 ml Documented by: Tamsulosin HCl (Flomax) 0.4 mg PO BID [facility] Last Admin: 07/07/19 21:44 Dose: 0.4 mg Documented by: Umeclidinium [place] (Incruse Ellipta Inhaler) 1 puff IH DAILY [facility] Last Admin: 07/07/19 09:40 Dose: 1 puff Documented by: Medical Necessity - Tobacco Use Smoking Status: Former smoker Tobacco Use: Non-smoker Assessment/Plan All Active Problems (Last Reviewed 03/13/19 @ 09:42 by MICHAEL JefferyC) Hypoxia (Acute) Bronchitis (Acute) Suspected COVID-19 virus infection (Acute) Community acquired bacterial pneumonia (Acute) COVID-19 (Acute) History of pneumonia (Acute) History of bronchitis (Acute) Hx of appendectomy (Resolved) COPD exacerbation (Acute) RECOMMENDATIONS: 1. Continue current supportive measures with supplemental oxygen. Wean to maintain saturations at or above 90%. 2. Continue systemic anticoagulation until discharge home. 3. Continue bronchodilator therapy and prednisone. Plan for steroid taper at discharge. 4. Perform walking oximetry study prior to consideration for discharge home. 5. Encourage incentive spirometer use and mobilize patient as tolerated. IMPRESSIONS: 1. 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 He did test positive for coronavirus on presentation to the hospital. Oxygenation status is improving. He does have a baseline 3 L/min requirement at rest and 6 L/min with exertion. Plan to continue scheduled bronchodilator therapy along with steroids. Plan for steroid taper at discharge. Perform walking oximetry study prior to consideration for discharge home. 2. Type 2 diabetes mellitus, [id number] Continue Lantus and sliding scale insulin coverage. 3. Hypertension/CAD/PAD/carotid stenosis/advanced age/multiple admissions?exacerbations Complicates care, management, recovery and prognosis. Okay to continue baseline home medications as tolerated. This note was generated with Glip[employer] dictation software. It may contain incorrect words, spelling, and punctuation that were not noted in checking the note before signing. Inpatient E&M: 17496 Subs Hosp L2
--- NOTE | 2019-07-08 07:28 | PCM.PN.HOSP ---
Patient Problems: Active and Suspected Problems (Last Reviewed 03/13/19 @ 09:42 by CLAUDETTE Jeffery) Hypoxia (Acute) Suspected COVID-19 virus infection (Acute) Community acquired bacterial pneumonia (Acute) COVID-19 (Acute) COPD exacerbation (Acute) Objective: GENERAL: cooperative appears ill looking HEENT: Atraumatic; EYES; Anicteric, Normal Conjunctiva NECK; supple, normal thyroid, RESPIRATORY: Diminished to auscultation CARDIOVASCULAR: Regular S1 S2, GI: soft, normoactive bowel sounds, : No Renal angle tenderness; EXTREMITIES: No edema, no clubbing, MUSCULOSKELETAL: no muscle waisting NEURO: Awake; no lateralizing signs. SKIN: No Rash PSYCH; Flat affect Vitals/I&O's: Vital Signs Temp Pulse Resp BP Pulse Ox 97.9 F 64 13 115/48 L 100 07/08/19 06:00 07/08/19 06:00 07/08/19 06:00 07/08/19 06:00 07/08/19 06:00 Oxygen Flow Rate (L/min) 5 Oxygen Delivery Method Nasal Cannula Weight: 73.7 kg Body Mass Index (BMI) 26.6 Intake and Output for Last 24 Hours 07/06/19 07/07/19 07/08/19 23:59 23:59 23:59 Intake Total 1240 / 1240 840 / 840 60 / 60 Output Total 1475 / 1475 400 / 400 Balance -235 / -235 440 / 440 60 / 60 Microbiology Past 72 Hours 07/01/19 10:00 Blood Culture (Wb) - Right Forearm Blood Culture - Final No growth in 5 days. 07/01/19 09:50 Blood Culture (Wb) - Anticubital Left Blood Culture - Final No growth in 5 days. Laboratory Results 07/07/19 11:28: POC Glucose 196 H 07/07/19 16:41: POC Glucose 243 H 07/07/19 21:40: POC Glucose 260 H 07/08/19 04:15: WBC 8.5, RBC 3.24 L, Hgb 10.0 L, Hct 31.8 L, MCV 98.1 H, MCH 30.9, MCHC 31.4 L, RDW Std Deviation 48.6 H, RDW Coeff of Delia 13.9, Plt Count 210, MPV 11.3, Immature Gran % (Auto) 0.700, Neut % (Auto) 73.0 H, Lymph % (Auto) 17.8 L, [place] % (Auto) 8.2, Eos % (Auto) 0.2, Baso % (Auto) 0.1, Absolute Neuts (auto) 6.2, Absolute Lymphs (auto) 1.52, Nucleated RBC % 0 07/08/19 04:15: Sodium 136, Potassium 3.9, Chloride 93 L, Carbon Dioxide 40.0 H, Anion Gap 3 L, BUN 52 H, Creatinine 1.22, Estim Creat Clear Calc 45.16, Est GFR (MDRD) Af Amer 73, Est GFR (MDRD) Non-Af 60, BUN/Creatinine Ratio 42.6 H, Glucose 127 H, Calcium 8.4 L, Total Bilirubin 0.40, AST 13 L, ALT 26, Alkaline Phosphatase 82, Total Protein 5.7 L, Albumin 2.8 L, Globulin 2.9, Albumin/Globulin Ratio 1.0 Current Medications Acetaminophen (Tylenol) 650 mg PO Q6H PRN PRN PRN Reason: Pain Score 1-10/Temp > 100.7 F Albuterol Sulfate (Ventolin Hfa (Sp)) 2 puff INHALATION Q4H PRN PRN PRN Reason: SHORTNESS OF BREATH Last Admin: 07/03/19 08:49 Dose: 2 puff Documented by: Amlodipine Besylate (Norvasc) 10 mg PO DAILY [facility] Last Admin: 07/07/19 09:28 Dose: 10 mg Documented by: Aspirin (Aspirin, Baby) 81 mg PO DAILY [facility] Last Admin: 07/07/19 09:28 Dose: 81 mg Documented by: Atorvastatin Calcium (Lipitor) 20 mg PO QHS [facility] Last Admin: 07/07/19 21:44 Dose: 20 mg Documented by: Benzonatate (Tessalon Perle) 200 mg PO TID PRN PRN PRN Reason: cough Dextrose (D50w Syringe) 0 gm IV X1 PRN; Protocol PRN Reason: Hypoglycemia Enoxaparin Sodium (Lovenox) 80 mg SC BID [facility] Last Admin: 07/07/19 21:44 Dose: 80 mg Documented by: Furosemide (Lasix) 20 mg PO BIDLX [facility] Last Admin: 07/07/19 18:36 Dose: 20 mg Documented by: Glimepiride (Amaryl) 1 mg PO DAILYCM [facility] Last Admin: 07/07/19 09:27 Dose: 1 mg Documented by: Glucagon () 1 mg IM .X1 PRN PRN Reason: Hypoglycemia Guaifenesin (Mucinex) 1,200 mg PO BID [facility] Last Admin: 07/07/19 21:44 Dose: 1,200 mg Documented by: Sodium Chloride () 250 mls @ 15 mls/hr IV .[id number] PRN PRN Reason: Saline Flush Sodium Chloride () 250 mls @ 15 mls/hr IV .[id number] PRN PRN Reason: Additional IVPB Infusion Insulin Glargine (Lantus ([facility])) 18 units SC 1100,2200 [facility] Last Admin: 07/07/19 21:45 Dose: 18 u Documented by: Insulin Human Lispro (Humalog Kwikpen ([facility])) 0 unit SC ACHS [facility]; Protocol Last Admin: 07/07/19 21:44 Dose: 6 u Documented by: Magnesium Hydroxide (Milk Of Magnesia) 30 ml PO DAILY PRN PRN PRN Reason: Constipation Last Admin: 07/06/19 16:49 Dose: 30 ml Documented by: Metoprolol Succinate (Toprol Xl (Beta Estevan)) 50 mg PO DAILY [facility] Last Admin: 07/07/19 09:29 Dose: 50 mg Documented by: Ondansetron HCl (Zofran) 4 mg IV Q8H PRN PRN PRN Reason: NAUSEA/VOMITING Pioglitazone HCl (Actos) 45 mg PO DAILY [facility] Last Admin: 07/07/19 09:28 Dose: 45 mg Documented by: Potassium Chloride (K-Dur) 20 meq PO DAILY [facility] Last Admin: 07/07/19 09:28 Dose: 20 meq Documented by: Prednisone () 40 mg PO DAILY [facility] Last Admin: 07/07/19 09:27 Dose: 40 mg Documented by: Sodium Chloride () 10 - 40 ml IV UD PRN PRN Reason: SALINE FLUSH Last Admin: 07/06/19 11:56 Dose: 10 ml Documented by: Tamsulosin HCl (Flomax) 0.4 mg PO BID [facility] Last Admin: 07/07/19 21:44 Dose: 0.4 mg Documented by: Umeclidinium [place] (Incruse Ellipta Inhaler) 1 puff IH DAILY [facility] Last Admin: 07/07/19 09:40 Dose: 1 puff Documented by: STROKE Vital Signs/Narrative: Vital Signs Temp Pulse Resp BP Pulse Ox 07/08/19 06:00 97.9 F 64 13 115/48 L 100 07/08/19 04:00 54 L Medical Necessity - Tobacco Use Smoking Status: Former smoker Tobacco Use: Non-smoker Assessment/Plan All Active Problems (Last Reviewed 03/13/19 @ 09:42 by Krystle Dumont NP-C) Hypoxia (Acute) Bronchitis (Acute) Suspected COVID-19 virus infection (Acute) Community acquired bacterial pneumonia (Acute) COVID-19 (Acute) History of pneumonia (Acute) History of bronchitis (Acute) Hx of appendectomy (Resolved) COPD exacerbation (Acute) Patient is an 83-year-old gentleman with multiple comorbidities admitted with progressive shortness of breath patient was diagnosed with acute on chronic hypoxic respiratory failure secondary to acute viral pneumonia from COVID 19. 1. Acute on chronic hypoxic respiratory failure ?Secondary to viral pneumonia from COVID 19 in addition to COPD with acute exacerbation 2. Acute viral pneumonia from COVID 19 ?Patient was managed with supplemental oxygen in addition to antibiotics. Patient did receive convalescent plasma on 07/04/2019 patient remains on high flow oxygen with plans to wean off as needed 3. COPD with acute exacerbation ?Precipitated by above managed with antibiotics in addition to prednisone and aerosol treatment as needed 4. Diabetes mellitus type 2 ?Did continue with home regimen except for metformin. Was also placed on Accu-Cheks before meals and at bedtime with sliding scale coverage 5. Hypertension ~ blood pressure controlled, home medications continued with dose adjustment as needed 6. Coronary artery disease ?With previous stent placement 7. Hypomagnesemia ?Corrected per protocol 8. Peripheral arterial disease ?Patient is on antiplatelet 9. DVT prophylaxis ~ on enoxaparin
--- NOTE | 2019-07-08 08:40 | CASEMGMT ---
Addendum entered by Reagan Elizalde 07/08/19 09:25: [facility] cannot accept patient. Call to [facility], referral faxed- need to await determination. Candida GONSALVES looking into type of transportation home for pt. Ciro BSN RN ACM Original Note: RN GERALDINE Note: Call received from Juan Miguel, son concerned that they cannot get pt into home and would need assistance. RN GERALDINE let Juan Miguel know cm will look into transportation options, but also that pt may need SNF if unable to manage @ home. Will call Juan Miguel back after reviewing options for transportation. Juan Miguel, son: [phone]
[2019-07-08] MEDS: predniSONE 20 MG Tablet 40 MG PO (08:51)
[2019-07-08] MEDS: Aspirin 81 MG TAB.CHEW PO (08:51)
[2019-07-08] MEDS: Furosemide 20 MG Tablet PO (08:52)
[2019-07-08] MEDS: Tamsulosin HCl 0.4 MG Capsule PO (08:52)
[2019-07-08] MEDS: Metoprolol(XL)Succ 50 MG Tablet PO (08:52)
[2019-07-08] MEDS: Glimepiride 1 MG Tablet PO (08:52)
[2019-07-08] MEDS: Pioglitazone Hydrochloride 45 MG Tablet PO (08:52)
[2019-07-08] MEDS: amLODIPine 10 MG Tablet PO (08:53)
[2019-07-08] MEDS: guaiFENesin 1,200 MG Tablet 1200 MG PO (08:53)
[2019-07-08] MEDS: Enoxaparin 80 MG/0.8 ML Syringe SC (08:54)
[2019-07-08] MEDS: Umeclidinium Bromide Inhaler 1 PUFF IH (08:55)
--- NOTE | 2019-07-08 09:21 | DCINST_ITS ---
- Discharge Diagnoses Current Active Problems: Current Active and Chronic Problems (Last Reviewed 03/13/19 @ 09:42 by CLAUDETTE Jeffery) Hypoxia (Acute) Suspected COVID-19 virus infection (Acute) Chronic respiratory failure (Chronic) Community acquired bacterial pneumonia (Acute) Acute and chronic respiratory failure (Chronic) COVID-19 (Acute) COPD exacerbation (Acute) You will use the following diet at home:: Calorie/Carbohydrate Controlled (specify 1200, 1400, etc) - 1800 Your food should be the consistency of: Regular Discharge Activity: Return to Normal Activity, - - Patient to isolate for 1 more week at home Allergies/Adverse Reactions: Allergies WORM MEDICATION Allergy (Uncoded 03/13/19 09:25) Hives 50 years ago. kids had got worms so the whole family needed to be treated for it. Medications to take at Discharge Aspirin [Aspirin, Baby] 81 mg PO DAILY@0800 01/18/17 Lisinopril/Hydrochlorothiazide [Zestoretic Tablet] 1 tab PO DAILY 01/18/17 Metoprolol Succinate [Toprol Xl] 50 mg PO DAILY 01/18/17 Nebulizer [Aeroneb Go Nebulizer] 1 ea MC Q4H PRN #1 ea 10/01/18 metFORMIN HCl [Glucophage] 500 mg PO DAILY 02/16/19 Albuterol Aerosols [Ventolin Aerosols] 2.5 mg INHALATION Q4H PRN PRN #30 vial.neb. 03/05/19 Benzonatate [Tessalon Perle] 200 mg PO TID PRN PRN #20 cap 03/05/19 Ipratropium/Albuterol Sulfate [Duoneb] 3 ml INHALATION Q4HWA.RT #30 ampul.neb 03/05/19 tiotropium bromide 18 mcg capsule with inhalation device 18 mcg INHALATION DAILY #30 inh 03/13/19 Amlodipine [Norvasc] 10 mg PO DAILY 07/01/19 Atorvastatin Calcium [Lipitor] 20 mg PO DAILY 07/01/19 Glimepiride 1 mg PO DAILY 07/01/19 Guaifenesin [Mucinex] 1,200 mg PO BID 07/01/19 Pioglitazone [Actos] 45 mg PO DAILY 07/01/19 Furosemide [Lasix] 20 mg PO BIDLX #60 tab 07/08/19 Potassium Chloride [K-Dur] 20 meq PO DAILY #30 tab 07/08/19 Tamsulosin HCl [Flomax] 0.4 mg PO BID #120 cap 07/08/19 predniSONE tablet 20 mg PO DAILY #7 tab 07/08/19 The following prescriptions were given: Tamsulosin HCl [Flomax] 0.4 mg PO BID #120 cap Transmission Status: Sent to [facility] Potassium Chloride [K-Dur] 20 meq PO DAILY #30 tab Transmission Status: Sent to [facility] Furosemide [Lasix] 20 mg PO BIDLX #60 tab Transmission Status: Sent to [facility] predniSONE tablet 20 mg PO DAILY #7 tab Transmission Status: Sent to [facility] Primary Care Physician: Kevin Mcdowell III, MD [Primary Care Provider] - Test Results: Test results from this visit will be discussed in further detail at your follow- up appointment, if applicable. Proposed Discharge Date: 07/08/19
--- NOTE | 2019-07-08 09:23 | DS.PCM_ITS ---
Discharge Date and Diagnosis - Problem List Patient Problems: Active and Suspected Problems (Last Reviewed 03/13/19 @ 09:42 by CLAUDETTE Jeffery) Hypoxia (Acute) Community acquired bacterial pneumonia (Acute) COVID-19 (Acute) COPD exacerbation (Acute) Date of Admission: 07/01/19 Date of Discharge: 07/08/19 - Primary Discharge Diagnosis Active and Suspected Problems (Last Reviewed 03/13/19 @ 09:42 by CLAUDETTE Jeffery) Hypoxia (Acute) Community acquired bacterial pneumonia (Acute) COVID-19 (Acute) COPD exacerbation (Acute) - Secondary Discharge Diagnosis Chronic Problems (Last Reviewed 03/13/19 @ 09:42 by CLAUDETTE Jeffery) Chronic respiratory failure (Chronic) Acute and chronic respiratory failure (Chronic) Chronic respiratory failure with hypoxia (Chronic) Carotid stenosis, bilateral (Chronic) Peripheral arterial disease (Chronic) Coronary artery disease (Chronic) History of cardiac stents (Chronic) Dyslipidemia (Chronic) DM type 2 (diabetes mellitus, type 2) (Chronic) Hypertension (Chronic) COPD (chronic obstructive pulmonary disease) (Chronic) FEV1 37% (01/09/2019) Hospital Course and Treatment Operations: None Summary of Care Provided: Patient is an 83-year-old gentleman with multiple comorbidities admitted with progressive shortness of breath patient was diagnosed with acute on chronic hypoxic respiratory failure secondary to acute viral pneumonia from COVID 19. 1. Acute on chronic hypoxic respiratory failure ?Secondary to viral pneumonia from COVID 19 in addition to COPD with acute exacerbation ?Patient was assessed for home oxygen prior to patient being discharged 2. Acute viral pneumonia from COVID 19 ?Patient was managed with supplemental oxygen in addition to antibiotics. Patient did receive convalescent plasma on 07/04/2019 patient remains on high flow oxygen with plans to wean off as needed 3. COPD with acute exacerbation ?Precipitated by above managed with antibiotics in addition to prednisone and aerosol treatment as needed 4. Diabetes mellitus type 2 ?Did continue with home regimen except for metformin. Was also placed on Accu- Cheks before meals and at bedtime with sliding scale coverage 5. Hypertension ~ blood pressure controlled, home medications continued with dose adjustment as needed 6. Coronary artery disease ?With previous stent placement 7. Hypomagnesemia ?Corrected per protocol 8. Peripheral arterial disease ?Patient is on antiplatelet 9. DVT prophylaxis ~ on enoxaparin Patient Problems: Active and Suspected Problems (Last Reviewed 03/13/19 @ 09:42 by CLAUDETTE Jeffery) Hypoxia (Acute) Community acquired bacterial pneumonia (Acute) COVID-19 (Acute) COPD exacerbation (Acute) Objective: GENERAL: cooperative HEENT: Atraumatic; EYES; Anicteric, Normal Conjunctiva NECK; supple, normal thyroid, RESPIRATORY: Diminished to auscultation CARDIOVASCULAR: Regular S1 S2, GI: soft, normoactive bowel sounds, : No Renal angle tenderness; EXTREMITIES: No edema, no clubbing, MUSCULOSKELETAL: no muscle waisting NEURO: Awake; no lateralizing signs. SKIN: No Rash PSYCH; Flat affect - Physical Exam Vitals/I&O's: Vital Signs Temp Pulse Resp BP Pulse Ox 97.0 F L 72 18 110/43 L 94 07/08/19 09:01 07/08/19 09:01 07/08/19 09:01 07/08/19 09:01 07/08/19 09:01 Oxygen Flow Rate (L/min) 5 Oxygen Delivery Method Nasal Cannula Weight: 73.7 kg Body Mass Index (BMI) 26.6 Intake and Output for Last 24 Hours 07/06/19 07/07/19 07/08/19 23:59 23:59 23:59 Intake Total 1240 / 1240 840 / 840 60 / 60 Output Total 1475 / 1475 400 / 400 Balance -235 / -235 440 / 440 60 / 60 Microbiology Past 72 Hours 07/01/19 10:00 Blood Culture (Wb) - Right Forearm Blood Culture - Final No growth in 5 days. 07/01/19 09:50 Blood Culture (Wb) - Anticubital Left Blood Culture - Final No growth in 5 days. Laboratory Results 07/07/19 11:28: POC Glucose 196 H 07/07/19 16:41: POC Glucose 243 H 07/07/19 21:40: POC Glucose 260 H 07/08/19 04:15: WBC 8.5, RBC 3.24 L, Hgb 10.0 L, Hct 31.8 L, MCV 98.1 H, MCH 30.9, MCHC 31.4 L, RDW Std Deviation 48.6 H, RDW Coeff of Delia 13.9, Plt Count 210, MPV 11.3, Immature Gran % (Auto) 0.700, Neut % (Auto) 73.0 H, Lymph % (Auto) 17.8 L, Ponce % (Auto) 8.2, Eos % (Auto) 0.2, Baso % (Auto) 0.1, Absolute Neuts (auto) 6.2, Absolute Lymphs (auto) 1.52, Nucleated RBC % 0 07/08/19 04:15: Sodium 136, Potassium 3.9, Chloride 93 L, Carbon Dioxide 40.0 H, Anion Gap 3 L, BUN 52 H, Creatinine 1.22, Estim Creat Clear Calc 45.16, Est GFR (MDRD) Af Amer 73, Est GFR (MDRD) Non-Af 60, BUN/Creatinine Ratio 42.6 H, Glucose 127 H, Calcium 8.4 L, Total Bilirubin 0.40, AST 13 L, ALT 26, Alkaline Phosphatase 82, Total Protein 5.7 L, Albumin 2.8 L, Globulin 2.9, Albumin/Globulin Ratio 1.0 Current Medications Acetaminophen (Tylenol) 650 mg PO Q6H PRN PRN PRN Reason: Pain Score 1-10/Temp > 100.7 F Albuterol Sulfate (Ventolin Hfa (Sp)) 2 puff INHALATION Q4H PRN PRN PRN Reason: SHORTNESS OF BREATH Last Admin: 07/03/19 08:49 Dose: 2 puff Documented by: Amlodipine Besylate (Norvasc) 10 mg PO DAILY [facility] Last Admin: 07/08/19 08:53 Dose: 10 mg Documented by: Aspirin (Aspirin, Baby) 81 mg PO DAILY [facility] Last Admin: 07/08/19 08:51 Dose: 81 mg Documented by: Atorvastatin Calcium (Lipitor) 20 mg PO QHS [facility] Last Admin: 07/07/19 21:44 Dose: 20 mg Documented by: Benzonatate (Tessalon Perle) 200 mg PO TID PRN PRN PRN Reason: cough Dextrose (D50w Syringe) 0 gm IV X1 PRN; Protocol PRN Reason: Hypoglycemia Enoxaparin Sodium (Lovenox) 80 mg SC BID [facility] Last Admin: 07/08/19 08:54 Dose: 80 mg Documented by: Furosemide (Lasix) 20 mg PO BIDLX [facility] Last Admin: 07/08/19 08:52 Dose: 20 mg Documented by: Glimepiride (Amaryl) 1 mg PO DAILYCM [facility] Last Admin: 07/08/19 08:52 Dose: 1 mg Documented by: Glucagon () 1 mg IM .X1 PRN PRN Reason: Hypoglycemia Guaifenesin (Mucinex) 1,200 mg PO BID [facility] Last Admin: 07/08/19 08:53 Dose: 1,200 mg Documented by: Sodium Chloride () 250 mls @ 15 mls/hr IV .[id number] PRN PRN Reason: Saline Flush Sodium Chloride () 250 mls @ 15 mls/hr IV .[id number] PRN PRN Reason: Additional IVPB Infusion Insulin Glargine (Lantus ([facility])) 18 units SC 1100,2200 [facility] Last Admin: 07/07/19 21:45 Dose: 18 u Documented by: Insulin Human Lispro (Humalog Kwikpen ([facility])) 0 unit SC ACHS [facility]; Protocol Last Admin: 07/08/19 08:53 Dose: Not Given Documented by: Magnesium Hydroxide (Milk Of Magnesia) 30 ml PO DAILY PRN PRN PRN Reason: Constipation Last Admin: 07/06/19 16:49 Dose: 30 ml Documented by: Metoprolol Succinate (Toprol Xl (Beta Estevan)) 50 mg PO DAILY [facility] Last Admin: 07/08/19 08:52 Dose: 50 mg Documented by: Ondansetron HCl (Zofran) 4 mg IV Q8H PRN PRN PRN Reason: NAUSEA/VOMITING Pioglitazone HCl (Actos) 45 mg PO DAILY [facility] Last Admin: 07/08/19 08:52 Dose: 45 mg Documented by: Potassium Chloride (K-Dur) 20 meq PO DAILY [facility] Last Admin: 07/08/19 08:53 Dose: 20 meq Documented by: Prednisone () 40 mg PO DAILY [facility] Last Admin: 07/08/19 08:51 Dose: 40 mg Documented by: Sodium Chloride () 10 - 40 ml IV UD PRN PRN Reason: SALINE FLUSH Last Admin: 07/06/19 11:56 Dose: 10 ml Documented by: Tamsulosin HCl (Flomax) 0.4 mg PO BID [facility] Last Admin: 07/08/19 08:52 Dose: 0.4 mg Documented by: Umeclidinium [place] (Incruse Ellipta Inhaler) 1 puff IH DAILY [facility] Last Admin: 07/08/19 08:55 Dose: 1 puff Documented by: Discharge Activity: Return to Normal Activity, - - Patient to isolate for 1 more week at home Home Medications: Medications to take at Discharge Aspirin [Aspirin, Baby] 81 mg PO DAILY@0800 01/18/17 Lisinopril/Hydrochlorothiazide [Zestoretic Tablet] 1 tab PO DAILY 01/18/17 Metoprolol Succinate [Toprol Xl] 50 mg PO DAILY 01/18/17 Nebulizer [Aeroneb Go Nebulizer] 1 ea MC Q4H PRN #1 ea 10/01/18 metFORMIN HCl [Glucophage] 500 mg PO DAILY 02/16/19 Albuterol Aerosols [Ventolin Aerosols] 2.5 mg INHALATION Q4H PRN PRN #30 vial.neb. 03/05/19 Benzonatate [Tessalon Perle] 200 mg PO TID PRN PRN #20 cap 03/05/19 Ipratropium/Albuterol Sulfate [Duoneb] 3 ml INHALATION Q4HWA.RT #30 ampul.neb 03/05/19 tiotropium bromide 18 mcg capsule with inhalation device 18 mcg INHALATION DAILY #30 inh 03/13/19 Amlodipine [Norvasc] 10 mg PO DAILY 07/01/19 Atorvastatin Calcium [Lipitor] 20 mg PO DAILY 07/01/19 Glimepiride 1 mg PO DAILY 07/01/19 Guaifenesin [Mucinex] 1,200 mg PO BID 07/01/19 Pioglitazone [Actos] 45 mg PO DAILY 07/01/19 Furosemide [Lasix] 20 mg PO BIDLX #60 tab 07/08/19 Potassium Chloride [K-Dur] 20 meq PO DAILY #30 tab 07/08/19 Tamsulosin HCl [Flomax] 0.4 mg PO BID #120 cap 07/08/19 predniSONE tablet 20 mg PO DAILY #7 tab 07/08/19 Following Prescrptions Were Given to Patient: Tamsulosin HCl [Flomax] 0.4 mg PO BID #120 cap Transmission Status: Sent to [facility]30 Potassium Chloride [K-Dur] 20 meq PO DAILY #30 tab Transmission Status: Sent to [facility]30 Furosemide [Lasix] 20 mg PO BIDLX #60 tab Transmission Status: Sent to [facility]30 predniSONE tablet 20 mg PO DAILY #7 tab Transmission Status: Sent to [facility]30 Primary Care Physician: Kevin Mcdowell III, MD [Primary Care Provider] - Disposition: Home Minutes spent on discharge:: 45 Patient Condition:: Stable Medical Necessity - Tobacco Use Smoking Status: Former smoker Tobacco Use: Non-smoker Meaningful Use Info Meaningful Use Diagnoses (Choose all that apply): None applicable Inpatient E&M: 66363 Disch Hosp
[2019-07-08 09:26] LABS: Bedside Glucose 83 mg/dL (70-110)
--- NOTE | 2019-07-08 09:46 | NURSING ---
pt drops to 88% with 5l o2 on. unable to do ra spots
--- NOTE | 2019-07-08 10:01 | CASEMGMT ---
RN GERALDINE Note: per nursing and Therapy- pt assist of one only, able to ambulate and anticipate pt can return home and do stairs into home with one assist. Call to [facility], message left updating pt ok to dc, will need portable tank brought to hospital for dc home, [facility] set up is being worked on by GERALDINE, and CM will call if pt is at home to update on which company can accept. Peggy nurse and Rosalie GONSALVES updated on above. Ciro BLANCHARDN RN ACM
--- NOTE | 2019-07-08 12:24 | CASEMGMT ---
RN CM Note: [facility] can accept pt. They are requesting pt know PPE will be provided for pt to wear as well as the staff coming into home. Message left with Juan Miguel, son to update of expectation. Call to [facility] to verify dc today and dc summary faxed to them. Ciro STATON RN ACM
--- NOTE | 2019-07-09 14:47 | CASEMGMT ---
ANDRE DC PHONE CALL DC DATE: 07.08.2019 DC DISPOSITION: Home with [facility] DC DIAGNOSIS: SARS COVID 2 Call deferred. [facility] will be seeing patient. Pt/son are aware PPE will need to be worn when they are working with patient. Per son, pt is able to quarantine @ home and son and were able to assist with any supplies. Ciro STATON RN ACM
== END 2019-07-08 11:29 | disposition home health service (06) | DRG 177 ==
LOC: ED 11:08 → ICU 11:24
PROVIDERS: Family Medicine; Internal Medicine Critical Care Medicine; Internal Medicine Infectious Disease; Admitting Provider Internal Medicine; Emergency Provider Emergency Medicine; PCP Family Medicine; Visit Provider Internal Medicine
DX: U07.1 COVID-19 (principal); J12.89 Other viral pneumonia; J96.22 Acute and chronic respiratory failure with hypercapnia; J96.21 Acute and chronic respiratory failure with hypoxia; J44.1 Chronic obstructive pulmonary disease with (acute) exacerbation; J44.0 Chronic obstructive pulmonary disease with (acute) lower respiratory infection; E78.5 Hyperlipidemia, unspecified; I25.10 Atherosclerotic heart disease of native coronary artery without angina pectoris; I10 Essential (primary) hypertension; E11.51 Type 2 diabetes mellitus with diabetic peripheral angiopathy without gangrene; Z87.891 Personal history of nicotine dependence; Z95.5 Presence of coronary angioplasty implant and graft; Z66 Do not resuscitate; I65.23 Occlusion and stenosis of bilateral carotid arteries; E83.42 Hypomagnesemia; E11.65 Type 2 diabetes mellitus with hyperglycemia; T38.0X5A Adverse effect of glucocorticoids and synthetic analogues, initial encounter; Z51.5 Encounter for palliative care; Z79.4 Long term (current) use of insulin; Z87.01 Personal history of pneumonia (recurrent); Z90.49 Acquired absence of other specified parts of digestive tract; Z99.81 Dependence on supplemental oxygen; R33.9 Retention of urine, unspecified; Z00.6 Encounter for examination for normal comparison and control in clinical research program
CPT/HCPCS: 71045; 80048; 80053; 81001; 82550; 82728; 82962; 83036; 83605; 83615; 83735; 83880; 84100; 84145; 84484; 85025; 85379; 85384; 85610; 85730; 86140; 86850; 86900; 86901; 87040; 87086; 87449; 87635; 93005; 94640; 94660; 96365; 96375; 97110; 97116; 97162; 97166; 97530; 99285; G2023; J7050; A4216; J1940; U0002

== ENCOUNTER 2019-07-25 11:44 | Inpatient (IN) | payer MEDICARE, OTHER, SELFPAY ==
[2019-07-01 14:12] VITALS: BMI 26.6
[2019-07-25] VITALS (19 sets, daily range): BP systolic 81–115; BP diastolic 33–81; PULSE 88–111; RESP 13–22; TEMP 36.6–37.2; O2SAT 91–100; BMI 24.2; BMI 23.8; BMI 23.9
--- NOTE | 2019-07-25 12:12 | CT_ITS ---
STUDY: CT BRAIN WITHOUT CONTRAST REASON FOR EXAM: Male, 83 years old. FALL RADIATION DOSAGE (If Supplied By Facility): CTDIvol = ( 60.81 ) mGy, DLP = ( 998.67 ) mGycm TECHNIQUE: Transaxial CT imaging of the brain was performed without administration of intravenous contrast material. Individualized dose optimization techniques were used for this CT. COMPARISON: No relevant priors. FINDINGS: Normal soft tissue structures. Normal calvarium. There is mild cerebral atrophy with widening of the extra-axial spaces and ventricular dilatation. There are areas of decreased attenuation within the white matter tracts of the supratentorial brain, consistent with microvascular disease changes. Normal basal ganglia and thalami. Normal brainstem. Normal cerebellum. There is no intracranial hemorrhage. There are no findings of an acute ischemic infarction. Atherosclerotic calcification of the cavernous portions of the internal carotid arteries bilaterally. Normal visualized paranasal sinuses. CT/Brain/Head without Contrast IMPRESSION: Chronic involutional changes of the brain. Electronically Signed: Renan Domínguez, at 13:16 EDT , Service support ,
--- NOTE | 2019-07-25 12:13 | EKG12_ITS ---
Test Reason : Blood Pressure : / mmHG Vent. Rate : 101 BPM Atrial Rate : 101 BPM P-R Int : 212 ms QRS Dur : 116 ms QT Int : 324 ms P-R-T Axes : 069 -56 078 degrees QTc Int : 420 ms Sinus tachycardia with 1st degree A-V block Left axis deviation Abnormal ECG Confirmed by DEBBIE CHOWDHURY, KAL ([id number]), sound editor GLORIA JACKSON ([id number]) on 07/28/2019 1:27:27 PM Referred By: LAI Confirmed By:KAL LEWIS MD
[2019-07-25] MEDS: Albuterol 2.5 MG/3 ML VIAL.NEB. INHALATION ×3 (12:15)
[2019-07-25 12:27] LABS: Absolute Lymphocyte Count 0.34 X10^3/uL (0.83-4.51); Absolute Neutrophil Count 5.3 X10^3/uL (2.0-7.7); Basophil# 0.01 X10^3/uL; Basophil% 0.2 % (0-1); Eosinophil# 0.11 X10^3/uL; Eosinophils% 1.8 % (0-5); Hematocrit 30.8 % (40-54); Hemoglobin 9.3 g/dL (13.0-16.5); Lymphocyte # 0.34 X10^3/ul (4.0); Lymphocyte % 5.5 % (19-41); Mean Corp Hgb Conc 30.2 g/dL (32-36); Mean Corpuscular Hgb 30.6 pg (27.0-32.0); Mean Corpuscular Volume 101.3 fL (80-94); Mean Platelet Vol. 12.1 fl (6.2-12.0); Monocyte# 0.36 X10^3/uL; Monocyte% 5.9 % (0-10); NRBC Flagged by Analyzer 0 % (0-5); Neutrophil # 5.31 X10^3/uL (2.7-7.7); Neutrophil % 86.3 % (47-70); POSITIVE DIFFERENTIAL YES; POSITIVE MORPHOLOGY YES; Platelet Count 110 K/mm3 (150-450); RBC Distribution Width CV 14.2 % (11.6-14.6); Red Blood Count 3.04 M/mm3 (4.6-6.2); White Blood Count 6.2 K/mm3 (4.4-11.0)
--- NOTE | 2019-07-25 12:37 | ED.VISSUMM ---
- ER Visit Summary Date of Service: 07/25/19 Chief Complaint: Generalized weakness, fall, shortness of breath History of Present Illness: The patient is a 83 M presenting with generalized weakness. Patient states that he was unable to walk today because his legs felt weak and he fell. He hit his head but did not lose consciousness. He was able to call EMS from his cell phone. They had to force their way into the house. He has a small skin tear to the right elbow. Denies other injury with the fall. He states he has been short of breath. Per EMS, pulse ox was in the 80s on his home O2. They have been recently changing his blood pressure medications. He states his 3 blood pressure medications have been cut in half. He was recently admitted from June 30 to July 07 due to pneumonia and was COVID positive. Denies fever or cough. Denies chest pain. Denies other complaints. Physical Examination: Blood pressure 93/60, heart rate 105. Pulse ox 99% on 5 L patient is afebrile. Alert no acute distress. HEENT exam is unremarkable. Neck is nontender Lungs are diminished and wheezing bilaterally. Heart is tachycardic and regular Abdomen is soft nontender nondistended. Extremities skin tear right elbow with no bony tenderness Skin is warm and dry. No focal neurologic deficit. Remainder of exam is unremarkable. Emergency Department Course and Treatment: EKG is sinus tachycardia rate of 101. Patient is given albuterol, Atrovent aerosol. CBC shows hemoglobin 9.3, platelet 110. Chemistries show potassium 6.4, BUN 69, creatinine 3.06, previous creatinine 1.22. Troponin 0.621. Lactic acid 4.8. Blood cultures were sent. Patient was given IV fluids. Chest x-ray shows mild residual increased markings at the left lung base. CT head shows chronic involutional changes of the brain. He was given Zosyn, vancomycin IV. Repeat blood pressure 103/42. Discussed with the hospitalist for admission. Disposition: Admission Impression: FER, lactic acidosis, generalized weakness This note was generated with Linux Voice dictation software. It may contain incorrect words, spelling, and punctuation that were not noted in review of the chart prior to signing ED Disposition - Plan for ED Patient: Referrals: Kevin Mcdowell III, MD [Primary Care Provider] -
--- NOTE | 2019-07-25 12:45 | RAD_ITS ---
STUDY: X-RAY CHEST REASON FOR EXAM: Male, 83 years old. FALL, HYPOTENSION, SOB, AND WEAKNESS. -- RECENT POSITIVE COVID TECHNIQUE: Single AP portable view of the chest. COMPARISON: Comparison is made with prior study dated July 01, 2019. FINDINGS: EKG electrodes are seen. Hyperinflation. Scattered calcified granulomas. Mild persistent increased markings at the left lung base although the majority of the previously seen left lower lobe infiltrate has resolved. There is no demonstrated pleural abnormality. Normal size heart. Normal mediastinum and dionne. Normal visualized pulmonary arteries. There is atherosclerotic calcification of the aortic arch with tortuosity. Normal visualized thoracic spine. Normal visualized ribs, clavicles, and shoulders. There is no demonstrated abnormality of the visualized soft tissue structures of the upper abdomen. RAD/Chest 1 View (Portable) IMPRESSION: Mild residual increased markings at the left lung base. Electronically Signed: Renan Domínguez, at 13:02 EDT , Service support ,
[2019-07-25 12:49] LABS: AST(SGOT) 19 U/L (15-37); Alanine Aminotransfer ALT/SGPT 30 U/L (16-61); Albumin, Serum 3.2 g/dL (3.2-5.0); Alkaline Phosphatase 93 U/L (45-117); Anion Gap 8 (5-15); BUN 69 mg/dL (7-18); BUN/Creat Ratio 22.5 RATIO (10-20); Calcium,Total 9.3 mg/dL (8.5-10.1); Chloride 95 mmol/L (98-107); Creatinine, Serum 3.06 mg/dL (0.70-1.30); EST Glomerular Filtration Rate 21 mL/min (>60); Est Glom Filt Rate - Afr Amer 25 mL/min (>60); Estimated Creatinine Clearance 18.61 ml/min; Globulin 3.3 g/dL (2.2-4.2); Glucose 281 mg/dL (74-106); Potassium 6.4 mmol/L (3.5-5.1); Protein, Total 6.5 g/dL (6.4-8.2); Sodium Level 134 mmol/L (136-145)
[2019-07-25 12:51] LABS: Lactic Acid 4.8 mmol/L (0.4-1.9)
[2019-07-25 12:56] LABS: Differential Indicated SCAN CRITERIA MET; Magnesium 1.9 mg/dL (1.6-2.6)
[2019-07-25 14:03] LABS: Bacteria 0 SEEN /hpf (None Seen); Mucous, Urine 0 SEEN /hpf (<or=2+); Red Blood Cells-Urine 0 SEEN /hpf (0-5); Squamous Epithelial Cells - UA 0 SEEN /hpf (0-5); White Blood Cells 0 SEEN /hpf (0-5)
[2019-07-25 14:05] LABS: Color, Urine Yellow (Yellow); Glucose, Dipstick Normal (Normal); Ketone-Dipstick Negative (Negative); Leukocyte Esterase-Dipstick Negative /ul (Negative); Nitrite-Dipstick Negative (Negative); Occult Blood-Urine Negative /ul (Negative); Protein-Dipstick Negative (Negative); Urine Bilirubin Dipstick Negative (Negative); Urine Clarity Clear (Clear); Urine Urobilinogen Normal (Normal)
[2019-07-25] MEDS: 0.9% Normal Saline 1,000 ML 999 ML IV ×2 (14:26→16:13)
--- NOTE | 2019-07-25 14:31 | NURSING ---
Addendum entered by Sonya Valencia 07/25/19 14:32: 118 Original Note: 8 TONY FER, WEAKNESS, COPD, LACTIC ACIDOSIS
[2019-07-25] MEDS: Vancomycin IV 1,000 MG/200 ML BAG 200 MG IV (15:02)
--- NOTE | 2019-07-25 15:59 | HP.PCM_ITS ---
History of Present Illness Date of Admission: 07/25/19 Chief Complaint: FALL The patient is a 83 year old M who presented to the ED today after a fall. He states that he was going to the bathroom today and went to stand up and after he was standing his legs gave out on him. He denies hitting his head or any other injury other than a skin tear. He states that his legs just felt weak and gave out on him. He does admit that he has been SOB more than usual lately but denies CP. His baseline O2 requirement is 3-4 L but was increased to 5-6 L recently as he was admitted from June 30- for PNA and COVID-19. At this time he denies fever or cough. He admits that his BP has been low lately and Dr. Mcdowell cut back on his BP med about a week ago. He states that his appetite has been fine and assures me that he has been drinking plenty of fluid. He denies any lightheadness today with standing but states that is what he had been experiencing prior to seeing Dr. Mcdowell and having his BP meds altered. EKG shows no ischemic changes and demonstrates no arrhythmia. BP is 94/37 with a HR of 104. He is not tachypneic and O2 sats are 98% on 4 L nasal cannula. His white count is not elevated but his lactate is elevated at 4.8. His troponin is 0.621 and his sCr is markedly elevated from his baseline at 3.06. He has a phoenix in that is draining pale yellow urine at this time. Past Medical History Past Medical History (Chronic Problems): Chronic Problems (Last Reviewed 07/25/19 @ 16:[address] Sindi Traylor DO) Chronic respiratory failure (Chronic) Acute and chronic respiratory failure (Chronic) Chronic respiratory failure with hypoxia (Chronic) Carotid stenosis, bilateral (Chronic) Peripheral arterial disease (Chronic) Coronary artery disease (Chronic) History of cardiac stents (Chronic) Dyslipidemia (Chronic) DM type 2 (diabetes mellitus, type 2) (Chronic) Hypertension (Chronic) COPD (chronic obstructive pulmonary disease) (Chronic) FEV1 37% (01/09/2019) Medical History: Medical History (Last Reviewed 07/25/19 @ 16:[address] Sindi Traylor DO) History of pneumonia (Acute) Z87.01 History of bronchitis (Acute) Z87.09 COPD exacerbation (Acute) J44.1 Carotid stenosis, bilateral (Chronic) I65.23 Peripheral arterial disease (Chronic) Coronary artery disease (Chronic) History of cardiac stents (Chronic) Dyslipidemia (Chronic) E78.5 DM type 2 (diabetes mellitus, type 2) (Chronic) E11.9 Hypertension (Chronic) I10 COPD (chronic obstructive pulmonary disease) (Chronic) J44.9 FEV1 37% (01/09/2019) Allergies WORM MEDICATION Allergy (Uncoded 03/13/19 09:25) Hives 50 years ago. kids had got worms so the whole family needed to be treated for it. Home Medications: Ambulatory Orders Medication Instructions Recorded Lisinopril/Hydrochlorothiazide 1 tab PO DAILY 01/18/17 [Zestoretic Tablet] Metoprolol Succinate [Toprol Xl] 50 mg PO DAILY 01/18/17 tiotropium bromide 18 mcg capsule 18 mcg INHALATION DAILY #30 inh 03/13/19 with inhalation device Amlodipine [Norvasc] 10 mg PO DAILY 07/01/19 Atorvastatin Calcium [Lipitor] 20 mg PO DAILY 07/01/19 Pioglitazone [Actos] 45 mg PO DAILY 07/01/19 Furosemide [Lasix] 20 mg PO BIDLX #60 tab 07/08/19 Potassium Chloride [K-Dur] 20 meq PO DAILY #30 tab 07/08/19 Tamsulosin HCl [Flomax] 0.4 mg PO BID #120 cap 07/08/19 Gabapentin [Neurontin] 300 mg PO TID 07/25/19 Glimepiride [Amaryl] 1 mg PO DAILY 07/25/19 Surgical History: Surgical History (Last Reviewed 03/13/19 @ 09:42 by CLAUDETTE Jeffery) Hx of appendectomy (Resolved) Z90.49 Surgical History: - - Carotid endarterectomy, bilateral femoral bypass Psychiatric History: No pertinent psych hx Smoking Status: Former smoker - *Family History Maternal Family History: Family History (Last Reviewed 07/25/19 @ 16:[address] Sindi Traylor DO) Other Family history unknown History Items: No pertinent history Paternal Family History: Family History (Last Reviewed 07/25/19 @ 16:[address] Sindi Traylor DO) Other Family history unknown History Items: No pertinent history Review of Systems Constitutional: Reports: Weakness. Denies: Anorexia, Chills, Fever, Night Sweats, Malaise, Weight Change, Fatigue Eyes: Denies: Blurred vision, Cataracts, Conjunctivae Inflammation, Double vision, Drainage, Eyelid Inflammation, Pain, Redness, Vision Change HEENT: Reports: Difficulty Hearing, Hard of Hearing. Denies: Difficulty Swallowing, Dysphasia, Ear Pain, Eye Pain, Head Aches, Hearing Changes, Nasal bleeding, Nasal Congestion, Post Nasal Drip, Sinus Congestion, Sinus Drainage, Sore Throat, Visual Changes Cardiovascular: Reports: - - lightheaded at times recently. Denies: Chest Pain, Claudication, Chest Pressure, Chest Tightness, Edema, Heaviness, Light Headedness, Orthopnea, Palpitations, Paroxysmal Noc. Dyspnea, Syncope Respiratory: Reports: Shortness of Breath, Shortness of breath at rest, Shortness of breath upon exertion. Denies: Cough, Hemoptysis, Pleuritic Pain, Sputum production, Wheezing Gastrointestinal: Denies: Abdominal Pain, Constipation, Diarrhea, Dyspepsia, Hematemesis, Hematochezia, Nausea, Melena, Vomiting Genitourinary: Denies: Dysuria, Frequency, Hematuria, Hesitancy, Incontinence, Nocturia, Retention, Urgency Musculoskeletal: Reports: - - legs feel weak. Denies: Arm Pain, Back Pain, Foot Pain, Hand Pain, Joint Pain, Joint stiffness, Joint swelling, Joint Tenderness, Leg Pain, Muscle pain, Neck Pain, Shoulder Pain Skin: Reports: Wounds - skin tear R UE. Denies: Dryness, Jaundice, Lesions, Pruritis, Rash, Skin Changes Neurological: Denies: Balance problems, Blurred vision, Double vision, Change in Speech, Slurred speech, Confusion, Difficulty swallowing, Focal weakness, Headaches, Incoordination, Numbness, Tingling, Tremor, Seizures Endocrine: Denies: Change in Body Habitus, Heat/ Cold Intolerance, Polydipsia, Polyuria, Hx of Irradiation, Hx of Thyroiditis Hematologic/ Lymphatic: Reports: Easy Bruising. Denies: Adenopathy, Anemia, Easy Bleeding, Petechiae, Purpura, Hx of blood clot, Hx of blood transfusion VTE Information - Inpt Only VTE Present on Admission: No VTE Pharm Prophylaxis ordered?: Yes - Physical Exam Vitals/I&O's: Vital Signs Temp Pulse Resp BP Pulse Ox 97.8 F 103 H 18 91/35 L 100 07/25/19 15:46 07/25/19 15:46 07/25/19 15:46 07/25/19 15:46 07/25/19 15:46 Oxygen Flow Rate (L/min) 4 Oxygen Delivery Method Nasal Cannula Weight: 74.5 kg Body Mass Index (BMI) 24.2 Intake and Output for Last 24 Hours 07/23/19 07/24/19 07/25/19 23:59 23:59 23:59 Intake Total 1300 / 1300 Balance 1300 / 1300 General: Alert, Oriented x3, Cooperative, No apparent distress, Well developed, Well nourished, - - elderly WM sitting up in bed and appears comfortable HEENT: Atraumatic, PERRLA, EOMI, Normocephalic, EAC Clear Oral: Moist Mucosa, No Gingival or Mucosal Lesions/ Ulcerations, - - poor dentition Neck: Supple, No JVD, Negative Carotid Bruits, Negative Hepatojugular Reflux, No Nodes, No Nuchal Rigidity, Trachea Midline, Thyroid Normal Size and Texture Lungs: Clear to auscultation, No rhonchi, No wheeze, No rales, Diminished - diffusely, - - no dyspnea with conversation Cardiovascular: Regular rate, Regular Rhythm, Normal S1, Normal S2, No murmurs, No Ectopic Activity, No rub noted, No Gallop Abdomen: Bowel Sounds Present, Soft, Non Tender, Non-Distended, No Hepato- splenomegaly, No hernias noted Extremities: No clubbing, No cyanosis, No edema, Capillary Refill Less than 3 Seconds, Peripheral Pulses Normal Skin: No rashes, No breakdown, Skin Tear - R UE Musculoskeletal: No Tenderness to Palpation of Joints or Extremities, No Muscle Wasting, Arthritic Changes Lymphatic: No Cervical, Supraclavicular, or Inguinal Adenopathy Neurological: Cranial nerves II-XII grossly intact, Deep Tendon Reflexes 2+/4 and Symmetrical, Neuro grossly intact, - - proximal weakness B LE and UE, very [place] Psych/Mental Status: Normal Affect, Appropriate, Alert and oriented to time, place, person, mood and affect Laboratory Results 07/25/19 11:59: WBC 6.2, RBC 3.04 L, Hgb 9.3 L, Hct 30.8 L, MCV 101.3 H, MCH 30.6, MCHC 30.2 L, RDW Std Deviation 53.0 H, RDW Coeff of Delia 14.2, Plt Count 110 L, MPV 12.1 H, Immature Gran % (Auto) 0.300, Neut % (Auto) 86.3 H, Lymph % (Auto) 5.5 L, Arthur % (Auto) 5.9, Eos % (Auto) 1.8, Baso % (Auto) 0.2, Absolute Neuts (auto) 5.3, Absolute Lymphs (auto) 0.34 L, Nucleated RBC % 0 07/25/19 11:59: Sodium 134 L, Potassium 6.4 H*, Chloride 95 L, Carbon Dioxide 31.0, Anion Gap 8, BUN 69 H, Creatinine 3.06 H, Estim Creat Clear Calc 18.61, Est GFR (MDRD) Af Amer 25 L, Est GFR (MDRD) Non-Af 21 L, BUN/Creatinine Ratio 22.5 H, Glucose 281 H, Calcium 9.3, Total Bilirubin 0.50, AST 19, ALT 30, Alkaline Phosphatase 93, Troponin I 0.621 H*, Total Protein 6.5, Albumin 3.2, Globulin 3.3, Albumin/Globulin Ratio 1.0 07/25/19 11:59: Lactic Acid 4.8 H* 07/25/19 11:59: Magnesium 1.9 07/25/19 13:55: Urine Color Yellow, Urine Clarity Clear, Urine pH 6.0, Ur Specific [place] 1.010, Urine Protein Negative, Urine Glucose (UA) Normal, Urine Ketones Negative, Urine Occult Blood Negative, Urine Nitrite Negative, Urine Bilirubin Negative, Urine Urobilinogen Normal, Ur Leukocyte Esterase Negative, Urine RBC 0 SEEN, Urine WBC 0 SEEN, Ur Squamous Epith Cells 0 SEEN, Urine Bacteria 0 SEEN, Urine Mucus 0 SEEN Assessment/Plan All Active Problems (Last Reviewed 07/25/19 @ 16:[address] Sindi Traylor DO) Hypoxia (Acute) Bronchitis (Acute) Suspected COVID-19 virus infection (Acute) Community acquired bacterial pneumonia (Acute) COVID-19 (Acute) History of pneumonia (Acute) History of bronchitis (Acute) Hx of appendectomy (Resolved) COPD exacerbation (Acute) Hypotension -admit to SD -doubt sepsis but with recent admission will check cx and give Empiric abx -zosyn renally dosed -vanc x 1 with level in am given renal failure -IVF 2 L given in ED--> will give 1 more and then run LR at 75 cc/hr -trend BP--> goal MAP 65 -pt did take all of BP meds today already -hold all meds Lactic Acid -repeat now and again in am for clearance -suspect delayed clearance with renal failure FER on CKD stage 3 -baseline sCr is 1.15-1.3 -now 3.06 -suspect dehydration/ATN -push IVF--> LR at 75 cc/hr after boluses completed -trend BMP -if not trending down in am will need further w/u -P[place]enix in place Hyperkalemia -repeat BMP stat to look for improvement -if remains elevated may need to give kayexalate -EKG stable with no changes c/w elevated K -was on K supplements at home -hold Troponin Elevation -suspect stress induced ischemia + FER -will trend -no CP or EKG changes Hyponatremia -mild -suspect hypovolemia -repeat DM-2 -hold glipizide and Actos -BGT -SSI for now Diabetic Neuropathy -hold gabapentin with FER Hypertension -takes Norvasc/Lasix/Lisinopril/HCTZ/Metoprolol -hold all meds and monitor COPD with recent PNA and COVID -continue Symbicort -prn nebs -baseline O2 3-4 L and now on 4 L -CXR with no acute changes -FEV 1 was 37% predicted in 12/2018 B Carotid aa Stenosis/PAD/CAD with h/o stents -stable -not on ASA at baseline Anemia -relatively stable since d/c 07/07 -monitor--> suspect will drop with fluids and hemodilution Thrombocytopenia -down from last admission -mild -monitor for now BPH -continue flomax -phoenix DVT Prophylaxis -Heparin BID Inpatient E&M: 07379 Init Hosp L3
[2019-07-25 16:23] LABS: Reflex Lactate? Y
[2019-07-25 17:41] LABS: Bedside Glucose 187 mg/dL (70-110)
[2019-07-25] MEDS: Insulin Lispro 100 UNIT/ML INSULN.PEN SC ×2 (17:58→21:37)
[2019-07-25] MEDS: Lactated Ringers 1,000 ML 75 ML IV (17:58)
[2019-07-25 18:20] LABS: Anion Gap 5 (5-15); BUN 62 mg/dL (7-18); BUN/Creat Ratio 24.8 RATIO (10-20); Calcium,Total 8.5 mg/dL (8.5-10.1); Chloride 104 mmol/L (98-107); EST Glomerular Filtration Rate 26 mL/min (>60); Est Glom Filt Rate - Afr Amer 32 mL/min (>60); Estimated Creatinine Clearance 22.78 ml/min; Glucose 198 mg/dL (74-106); Lactic Acid 3.4 mmol/L (0.4-1.9); Sodium Level 139 mmol/L (136-145)
--- NOTE | 2019-07-25 18:33 | ECHOCS_ITS ---
Reason For Study: SOB Procedure This was a 2D Doppler, Color Flow transthoracic echocardiogram. The study was technically difficult. Exam performed portable in ICU/CCU. Left Ventricle Normal LV size. Left ventricular systolic function is normal. The estimated ejection fraction is 65 %. Stage 1 diastolic dysfunction. No regional wall motion abnormalities noted. Right Ventricle Normal RV size. Normal systolic function. Atria Normal left atrium. Normal right atrium. Mitral Valve Mitral valve not well visualized. Tricuspid Valve Normal tricuspid valve. Mild tricuspid valve insufficiency. Pulmonary artery systolic pressure is 26 mmHg. Aortic Valve Trisinus/trileaflet aortic valve. Mild focal aortic valve calcification. Peak aortic valve gradient 64 mmHg. Mean aortic valve gradient 36 mmHg. Moderate aortic stenosis. Pulmonic Valve Normal pulmonic valve. Great Vessels Normal aortic root. Pericardium/Pleural No pericardial effusion. Medication Diluted definity 2ml given slow IV push to enhance endocardial definition. MMode/2D Measurements & Calculations LVIDd: 3.1 cm IVSd: 1.1 cm Ao root diam: 3.4 cm LVIDs: 1.8 cm LVPWd: 1.0 cm RVDd: 3.8 cm FS: 40.4 % LAV(MOD-sp4): 39.4 ml LA A4 area: 16.0 cm2 LA dimension(2D): 4.0 cm RA A4 area: 12.9 cm2 Doppler Measurements & Calculations MV E max erasto: 81.1 cm/sec Lat Peak E' Erasto: 13.6 cm/sec Med Peak E' Erasto: 8.9 cm/sec MV A max erasto: 140.3 cm/sec E/E' lat: 5.9 E/E' med: 9.2 MV E/A: 0.58 Ao V2 max: 401.1 cm/sec LV V1 max: 127.4 cm/sec PA V2 max: 131.8 cm/sec Ao max P.5 mmHg LV V1 max P.5 mmHg Ao V2 mean: 280.6 cm/sec LV V1 mean P.3 mmHg Ao mean P.6 mmHg LV V1 mean: 85.1 cm/sec Ao V2 VTI: 68.3 cm LV V1 VTI: 23.3 cm TR max erasto: 241.5 cm/sec TR max P.3 mmHg Interpretation Summary Normal LV size. Left ventricular systolic function is normal. The estimated ejection fraction is 65 %. Stage 1 diastolic dysfunction. Mean aortic valve gradient 36 mmHg. Moderate aortic stenosis. Contrast injection was performed. Ordering Physician: Sindi Traylor Referring Physician: MAGY Mcdowell M.D. Performed By: Mary Sharma RDCS
--- NOTE | 2019-07-25 18:33 | PCM.HOSP.N ---
Hospitalist Note Repeat Troponin increased to 1.9. loaded with ASA and asa daily, ECHO and cardiology consultation. Lactate, sCxr and K are trending down with IVF. Repeat in am.
[2019-07-25] MEDS: Aspirin 325 MG Tablet PO (19:42)
[2019-07-25] MEDS: Ipratropium 0.5 MG/2.5 ML SOLUTION INHALATION (21:09)
--- NOTE | 2019-07-25 21:12 | NURSING ---
DR. ALMAZAN PAGED AT THIS TIME REGARDING PATIENT'S BLOOD PRESSURE.
--- NOTE | 2019-07-25 21:15 | NURSING ---
Dr. Garcia returned page, updated on patient condition. Dr. Garcia stated she will enter orders.
--- NOTE | 2019-07-25 21:23 | PCM.HOSP.N ---
Hospitalist Note Patient with ongoing hypotension although map maintained appropriate, ongoing hyperkalemia. Will administer calcium gluconate, insulin, albuterol, Kayexalate, dextrose with repeat level following. Will transition patient to the ICU. Given evidence of end STEMI will discontinue subcu heparin and transition to heparin drip concurrently. Will request short range air defense artillery consultation in addition to already requested cardiology evaluation.
[2019-07-25] MEDS: Sodium Polystyrene Sulfonate 15 GM/60 ML UDC 30 GM PO (21:37)
[2019-07-25] MEDS: Dextrose 50%-Water 25 GM/50 ML DISP.SYRIN IV (21:38)
[2019-07-25 22:02] LABS: International Normalized Ratio 1.1; Prothrombin Time (Protime)PT. 13.2 SECONDS (11.7-14.9)
[2019-07-25 22:03] LABS: Partial Thromboplast Time 28.9 Seconds (24.1-36.2)
[2019-07-25] MEDS: HEPARIN/D5w 25,000 UNITS 25,000 UNITS/250 ML IV.SOLN. 11 UNITS IV (22:10)
[2019-07-25] MEDS: Heparin Injection (Vial) 5,000 UNIT/ML VIAL 5000 UNIT IV (22:11)
[2019-07-25] MEDS: Tamsulosin HCl 0.4 MG Capsule PO (22:13)
[2019-07-25] MEDS: Atorvastatin Calcium 20 MG Tablet PO (22:13)
--- NOTE | 2019-07-25 22:50 | NURSING ---
Nurse to nurse report called to Nathaly POWELL in ICU.
[2019-07-25 22:51] LABS: Bedside Glucose 148 mg/dL (70-110)
--- NOTE | 2019-07-25 23:00 | NURSING ---
Patient transferred to ICU by this RN via bed. Care of patient transferred to Nathaly RN in ICU at this time.
[2019-07-26] VITALS (44 sets, daily range): BP systolic 80–123; BP diastolic 39–92; PULSE 93–115; RESP 11–23; TEMP 36.9–37.3; O2SAT 90–100
[2019-07-26] MEDS: 0.9% Saline Lock 10 ML Syringe IV ×3 (00:42→17:06)
[2019-07-26 01:14] LABS: Anion Gap 3 (5-15); BUN 59 mg/dL (7-18); BUN/Creat Ratio 27.3 RATIO (10-20); Calcium,Total 8.7 mg/dL (8.5-10.1); Chloride 102 mmol/L (98-107); Creatinine, Serum 2.16 mg/dL (0.70-1.30); EST Glomerular Filtration Rate 31 mL/min (>60); Est Glom Filt Rate - Afr Amer 38 mL/min (>60); Estimated Creatinine Clearance 26.37 ml/min; Glucose 106 mg/dL (74-106); Potassium 5.6 mmol/L (3.5-5.1); Sodium Level 140 mmol/L (136-145)
[2019-07-26] MEDS: Ipratropium 0.5 MG/2.5 ML SOLUTION INHALATION ×4 (01:16→19:02)
[2019-07-26 04:22] LABS: Hematocrit 27.2 % (40-54); Hemoglobin 8.6 g/dL (13.0-16.5); Mean Corp Hgb Conc 31.6 g/dL (32-36); Mean Corpuscular Hgb 30.6 pg (27.0-32.0); Mean Corpuscular Volume 96.8 fL (80-94); Mean Platelet Vol. 11.7 fl (6.2-12.0); Platelet Count 110 K/mm3 (150-450); RBC Distribution Width CV 14.4 % (11.6-14.6); RBC Distribution Width SD 50.6 fl (35.1-43.9); Red Blood Count 2.81 M/mm3 (4.6-6.2); White Blood Count 5.7 K/mm3 (4.4-11.0)
[2019-07-26 04:38] LABS: Lactic Acid 0.9 mmol/L (0.4-1.9)
[2019-07-26 04:59] LABS: ALB/GLOB Ratio 0.9 RATIO (0.9-2.4); AST(SGOT) 25 U/L (15-37); Alanine Aminotransfer ALT/SGPT 27 U/L (16-61); Albumin, Serum 2.7 g/dL (3.2-5.0); Alkaline Phosphatase 73 U/L (45-117); Anion Gap 5 (5-15); BUN 56 mg/dL (7-18); BUN/Creat Ratio 26.5 RATIO (10-20); Calcium,Total 8.9 mg/dL (8.5-10.1); Chloride 101 mmol/L (98-107); Creatinine, Serum 2.11 mg/dL (0.70-1.30); EST Glomerular Filtration Rate 32 mL/min (>60); Est Glom Filt Rate - Afr Amer 39 mL/min (>60); Estimated Creatinine Clearance 26.99 ml/min; Globulin 2.9 g/dL (2.2-4.2); Glucose 141 mg/dL (74-106); Magnesium 1.6 mg/dL (1.6-2.6); Potassium 5.5 mmol/L (3.5-5.1); Protein, Total 5.6 g/dL (6.4-8.2); Sodium Level 140 mmol/L (136-145); Thyroid Stim Hormone (TSH) 1.39 uIU/mL (0.358-3.74)
[2019-07-26 05:17] LABS: Partial Thromboplast Time 189.2 Seconds (24.1-36.2)
[2019-07-26] MEDS: Lactated Ringers 1,000 ML 75 ML IV ×2 (05:34→18:40)
--- NOTE | 2019-07-26 05:55 | EKG12_ITS ---
Test Reason : AM EKG Blood Pressure : / mmHG Vent. Rate : 101 BPM Atrial Rate : 101 BPM P-R Int : 124 ms QRS Dur : 096 ms QT Int : 328 ms P-R-T Axes : 050 -53 104 degrees QTc Int : 425 ms Sinus tachycardia with occasional Premature ventricular complexes Left anterior fascicular block Nonspecific ST and T wave abnormality Abnormal ECG When compared with ECG of 25-JUL-2019 12:33, MANUAL COMPARISON REQUIRED, DATA IS UNCONFIRMED Confirmed by DEBBIE CHOWDHURY, KAL ([id number]), photo editor ALEXA GUPTA ([id number]) on 07/29/2019 10:19:55 AM Referred By: TONY Confirmed By:KAL LEWIS MD
--- NOTE | 2019-07-26 05:55 | RAD_ITS ---
HISTORY: dyspnea ADDITIONAL HISTORY: None provided. TECHNIQUE: Frontal chest radiograph. Number of images including paperwork: 1 COMPARISON: 07/25/2019 FINDINGS: LUNGS AND PLEURA: No consolidation, mass or pleural effusion. Emphysema. Minimal basilar subsegmental atelectasis versus scarring. CARDIAC SILHOUETTE: Unremarkable. MEDIASTINUM AND ELIEZER: Aortic calcification. UPPER ABDOMEN: Unremarkable. SKELETON AND SOFT TISSUES: No acute findings. OTHER DEVICES AND HARDWARE: None. RAD/Chest 1 View (Portable) IMPRESSION: Minimal basilar subsegmental atelectasis versus scarring. Emphysema. at 0749 Reported and signed by: Farzana Bernard MD Electronically Signed: Farzana eBrnard MD at 7:48 EDT Tel , Service support ,
--- NOTE | 2019-07-26 06:20 | PCM.CON.CC ---
Reason for Consult Date of Consultation: 07/26/19 Reason for Consultation: Hypotension, NSTEMI, hyperkalemia History of Present Illness: The patient is an 83-year-old male, with a history as outlined below, who presented to the emergency department on July 24 with complaints of generalized weakness and shortness of breath. The patient reported that he became so weak on the morning of presentation to the hospital that he fell while in the bathroom. He denied any dizziness or lightheadedness. The patient does report that he has COPD and utilizes supplemental oxygen in his home environment on a chronic basis. The patient was recently admitted to the hospital in mid June with a coronavirus infection. He was discharged on July 07. He did receive convalescent plasma while admitted to the hospital previously. The patient does have an approximate [id number] smoking history, having quit completely in 1995. The patient was last seen in the pulmonary medicine clinic in February 2019, at which time his inhaler regimen was escalated to triple therapy with Symbicort and Spiriva. 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 On presentation to the emergency department, the patient was noted to be afebrile with low normal hemodynamic status. Initial laboratory evaluation revealed no evidence of a leukocytosis. There was evidence of anemia with a hemoglobin of 9.3 g/dL. Coagulation profile was within normal limits. Chemistry profile was notable for a sodium of 134, potassium of 6.4, chloride of 95 and creatinine of 3.06. Lactate was elevated to 4.8. Troponin was increased to 0.621. Head CT revealed chronic involutional changes of the brain. Plain film chest x-ray revealed no acute cardiopulmonary process. The patient was initially admitted to the progressive care unit with hypotension and lactic acidemia. Supplemental IV fluids were administered and empiric antimicrobial started. However, the patient developed persistent hypotension and required transfer to the medical intensive care unit. The patient's troponin peaked overnight to 1.95. He did have to be started on Levophed, which is currently infusing at 10 mcg/min. Past Medical History Past Medical History (Chronic Problems): Chronic Problems (Last Updated 07/26/19 @ 13:58 by Anneliese Cary) COVID-19 (Chronic 07/01/19) Chronic kidney disease (CKD) (Chronic) Atherosclerotic heart disease of [place] coronary artery without angina pectoris (Chronic) Carotid stenosis, bilateral (Chronic) Peripheral vascular occlusive disease (Chronic) Dyslipidemia (Chronic) Essential (primary) hypertension (Chronic) DM type 2 (diabetes mellitus, type 2) (Chronic) COPD (chronic obstructive pulmonary disease) (Chronic) FEV1 37% (01/09/2019) Chronic respiratory failure with hypoxia (Chronic) Medical History: Medical History (Last Updated 07/26/19 @ 13:58 by Anneliese Cary) COVID-19 (Chronic) Onset Date: 07/01/19 U07.1 Chronic kidney disease (CKD) (Chronic) N18.9 Anemia (Acute) D64.9 Atherosclerotic heart disease of [place] coronary artery without angina pectoris (Chronic) I25.10 Carotid stenosis, bilateral (Chronic) I65.23 Peripheral vascular occlusive disease (Chronic) I73.9 Dyslipidemia (Chronic) E78.5 Essential (primary) hypertension (Chronic) I10 DM type 2 (diabetes mellitus, type 2) (Chronic) E11.9 COPD (chronic obstructive pulmonary disease) (Chronic) J44.9 FEV1 37% (01/09/2019) Chronic respiratory failure with hypoxia (Chronic) J96.11 Acute and chronic respiratory failure (Resolved) J96.20 Bronchitis (Resolved) J40 Community acquired bacterial pneumonia J15.9 History of pneumonia Z87.01 COPD exacerbation (Inactive) J44.1 Hypoxia (Inactive) R09.02 Allergies WORM MEDICATION Allergy (Uncoded 03/13/19 09:25) Hives 50 years ago. kids had got worms so the whole family needed to be treated for it. Home Medications: Ambulatory Orders Medication Instructions Recorded Lisinopril/Hydrochlorothiazide 1 tab PO DAILY 01/18/17 [Zestoretic Tablet] Metoprolol Succinate [Toprol Xl] 50 mg PO DAILY 01/18/17 tiotropium bromide 18 mcg capsule 18 mcg INHALATION DAILY #30 inh 03/13/19 with inhalation device Amlodipine [Norvasc] 10 mg PO DAILY 07/01/19 Atorvastatin Calcium [Lipitor] 20 mg PO DAILY 07/01/19 Pioglitazone [Actos] 45 mg PO DAILY 07/01/19 Furosemide [Lasix] 20 mg PO BIDLX #60 tab 07/08/19 Potassium Chloride [K-Dur] 20 meq PO DAILY #30 tab 07/08/19 Tamsulosin HCl [Flomax] 0.4 mg PO BID #120 cap 07/08/19 Gabapentin [Neurontin] 300 mg PO TID 07/25/19 Glimepiride [Amaryl] 1 mg PO DAILY 07/25/19 Surgical History: Surgical History (Last Updated 07/26/19 @ 13:54 by Anneliese Cary) History of coronary artery stent placement (Resolved) Z95.5 Hx of appendectomy Z90.49 Surgical History: - - Carotid endarterectomy, bilateral femoral bypass Psychiatric History: No pertinent psych hx Smoking Status: Former smoker - *Family History Maternal Family History: Family History (Last Reviewed 07/25/19 @ 16:[address] Sindi Traylor DO) Other Family history unknown History Items: No pertinent history Paternal Family History: Family History (Last Reviewed 07/25/19 @ 16:[address] Sindi Traylor DO) Other Family history unknown History Items: No pertinent history Review of Systems Constitutional: Reports: Malaise, Weakness, Fatigue. Denies: Chills, Fever Eyes: Denies: Blurred vision, Double vision HEENT: Denies: Head Aches, Sinus Congestion, Sinus Drainage Cardiovascular: Reports: Light Headedness. Denies: Chest Pain Respiratory: Reports: Shortness of Breath. Denies: Cough Gastrointestinal: Denies: Abdominal Pain, Nausea, Vomiting Genitourinary: Denies: Dysuria Musculoskeletal: Denies: Joint Pain, Joint Tenderness Skin: Denies: Rash, Wounds Neurological: Denies: Numbness, Tingling, Focal weakness Psychiatric: Denies: Anxiety, Depression, Homicidal Ideations, Suicidal Ideations Hematologic/ Lymphatic: Reports: Anemia Patient Problems: Active and Suspected Problems (Last Updated 07/26/19 @ 13:58 by Anneliese Cary) Hypotension (Acute) Anemia (Acute) Non-ST elevated myocardial infarction (non-STEMI) (Acute 07/25/19) Nonrheumatic aortic (valve) stenosis (Acute) Objective: The patient's most recent lab work, culture data and imaging studies have all been personally reviewed. Blood and urine cultures are pending. - Physical Exam Vitals/I&O's: Vital Signs Temp Pulse Resp BP Pulse Ox 98.9 F 96 18 107/48 L 99 07/26/19 04:00 07/26/19 06:00 07/26/19 06:00 07/26/19 06:00 07/26/19 06:00 Oxygen Flow Rate (L/min) 4 Oxygen Delivery Method Nasal Cannula Weight: 167 lb 8.821 oz Body Mass Index (BMI) 23.8 Intake and Output for Last 24 Hours 07/24/19 07/25/19 07/26/19 23:59 23:59 23:59 Intake Total 4567.5 / 4722.67 779.07 / 779.07 Output Total 2425 / 2425 875 / 875 Balance 2142.5 / 2297.67 -95.93 / -95.93 General: Alert, Oriented x3, Cooperative, No apparent distress HEENT: Atraumatic, PERRLA, Normocephalic Oral: No Gingival or Mucosal Lesions/ Ulcerations Neck: Supple, No Nodes, Trachea Midline Lungs: No rhonchi, No wheeze, No rales, Diminished, - - No conversational dyspnea Cardiovascular: Regular rate, Regular Rhythm, Normal S1, Normal S2, Murmur Abdomen: Bowel Sounds Present, Soft, Non Tender Extremities: No clubbing, No cyanosis, No edema Skin: No breakdown Musculoskeletal: No Tenderness to Palpation of Joints or Extremities Lymphatic: No Cervical, Supraclavicular, or Inguinal Adenopathy Neurological: Cranial nerves II-XII grossly intact, Neuro grossly intact Psych/Mental Status: Normal Affect, Appropriate Labs (Last 48 Hours) 07/25/19 07/25/19 07/25/19 11:59 11:59 11:59 WBC 6.2 RBC 3.04 L Hgb 9.3 L Hct 30.8 L MCV 101.3 H MCH 30.6 MCHC 30.2 L RDW Std Deviation 53.0 H RDW Coeff of Delia 14.2 Plt Count 110 L MPV 12.1 H Immature Gran % (Auto) 0.300 Neut % (Auto) 86.3 H Lymph % (Auto) 5.5 L [place] % (Auto) 5.9 Eos % (Auto) 1.8 Baso % (Auto) 0.2 Absolute Neuts (auto) 5.3 Absolute Lymphs (auto) 0.34 L Nucleated RBC % 0 PT INR APTT Sodium 134 L Potassium 6.4 H* Chloride 95 L Carbon Dioxide 31.0 Anion Gap 8 BUN 69 H Creatinine 3.06 H Estim Creat Clear Calc 18.61 Est GFR (MDRD) Af Amer 25 L Est GFR (MDRD) Non-Af 21 L BUN/Creatinine Ratio 22.5 H Glucose 281 H Lactic Acid 4.8 H* Calcium 9.3 Magnesium Total Bilirubin 0.50 AST 19 ALT 30 Alkaline Phosphatase 93 Troponin I 0.621 H* Total Protein 6.5 Albumin 3.2 Globulin 3.3 Albumin/Globulin Ratio 1.0 TSH Urine Color Urine Clarity Urine pH Ur Specific [place] Urine Protein Urine Glucose (UA) Urine Ketones Urine Occult Blood Urine Nitrite Urine Bilirubin Urine Urobilinogen Ur Leukocyte Esterase Urine RBC Urine WBC Ur Squamous Epith Cells Urine Bacteria Urine Mucus Random Vancomycin POC Glucose 07/25/19 07/25/19 07/25/19 11:59 13:55 17:32 WBC RBC Hgb Hct MCV MCH MCHC RDW Std Deviation RDW Coeff of Delia Plt Count MPV Immature Gran % (Auto) Neut % (Auto) Lymph % (Auto) [place] % (Auto) Eos % (Auto) Baso % (Auto) Absolute Neuts (auto) Absolute Lymphs (auto) Nucleated RBC % PT INR APTT Sodium 139 Potassium 6.0 H* Chloride 104 Carbon Dioxide 30.0 Anion Gap 5 BUN 62 H Creatinine 2.50 H Estim Creat Clear Calc 22.78 Est GFR (MDRD) Af Amer 32 L Est GFR (MDRD) Non-Af 26 L BUN/Creatinine Ratio 24.8 H Glucose 198 H Lactic Acid Calcium 8.5 Magnesium 1.9 Total Bilirubin AST ALT Alkaline Phosphatase Troponin I Total Protein Albumin Globulin Albumin/Globulin Ratio TSH Urine Color Yellow Urine Clarity Clear Urine pH 6.0 Ur Specific [place] 1.010 Urine Protein Negative Urine Glucose (UA) Normal Urine Ketones Negative Urine Occult Blood Negative Urine Nitrite Negative Urine Bilirubin Negative Urine Urobilinogen Normal Ur Leukocyte Esterase Negative Urine RBC 0 SEEN Urine WBC 0 SEEN Ur Squamous Epith Cells 0 SEEN Urine Bacteria 0 SEEN Urine Mucus 0 SEEN Random Vancomycin POC Glucose 07/25/19 07/25/19 07/25/19 17:32 17:32 17:34 WBC RBC Hgb Hct MCV MCH MCHC RDW Std Deviation RDW Coeff of Delia Plt Count MPV Immature Gran % (Auto) Neut % (Auto) Lymph % (Auto) [place] % (Auto) Eos % (Auto) Baso % (Auto) Absolute Neuts (auto) Absolute Lymphs (auto) Nucleated RBC % PT INR APTT Sodium Potassium Chloride Carbon Dioxide Anion Gap BUN Creatinine Estim Creat Clear Calc Est GFR (MDRD) Af Amer Est GFR (MDRD) Non-Af BUN/Creatinine Ratio Glucose Lactic Acid 3.4 H* Calcium Magnesium Total Bilirubin AST ALT Alkaline Phosphatase Troponin I 1.930 H* Total Protein Albumin Globulin Albumin/Globulin Ratio TSH Urine Color Urine Clarity Urine pH Ur Specific [place] Urine Protein Urine Glucose (UA) Urine Ketones Urine Occult Blood Urine Nitrite Urine Bilirubin Urine Urobilinogen Ur Leukocyte Esterase Urine RBC Urine WBC Ur Squamous Epith Cells Urine Bacteria Urine Mucus Random Vancomycin POC Glucose 187 H 07/25/19 07/25/19 07/25/19 21:15 21:30 21:36 WBC RBC Hgb Hct MCV MCH MCHC RDW Std Deviation RDW Coeff of Delia Plt Count MPV Immature Gran % (Auto) Neut % (Auto) Lymph % (Auto) [place] % (Auto) Eos % (Auto) Baso % (Auto) Absolute Neuts (auto) Absolute Lymphs (auto) Nucleated RBC % PT 13.2 INR 1.1 APTT 28.9 Sodium Potassium Chloride Carbon Dioxide Anion Gap BUN Creatinine Estim Creat Clear Calc Est GFR (MDRD) Af Amer Est GFR (MDRD) Non-Af BUN/Creatinine Ratio Glucose Lactic Acid Calcium Magnesium Total Bilirubin AST ALT Alkaline Phosphatase Troponin I 1.950 H* Total Protein Albumin Globulin Albumin/Globulin Ratio TSH Urine Color Urine Clarity Urine pH Ur Specific [place] Urine Protein Urine Glucose (UA) Urine Ketones Urine Occult Blood Urine Nitrite Urine Bilirubin Urine Urobilinogen Ur Leukocyte Esterase Urine RBC Urine WBC Ur Squamous Epith Cells Urine Bacteria Urine Mucus Random Vancomycin POC Glucose 148 H 07/26/19 07/26/19 07/26/19 00:40 04:00 04:00 WBC 5.7 RBC 2.81 L Hgb 8.6 L Hct 27.2 L MCV 96.8 H MCH 30.6 MCHC 31.6 L RDW Std Deviation 50.6 H RDW Coeff of Delia 14.4 Plt Count 110 L MPV 11.7 Immature Gran % (Auto) Neut % (Auto) Lymph % (Auto) [place] % (Auto) Eos % (Auto) Baso % (Auto) Absolute Neuts (auto) Absolute Lymphs (auto) Nucleated RBC % PT INR APTT Sodium 140 140 Potassium 5.6 H 5.5 H Chloride 102 101 Carbon Dioxide 35.0 H 34.0 H Anion Gap 3 L 5 BUN 59 H 56 H Creatinine 2.16 H 2.11 H Estim Creat Clear Calc 26.37 26.99 Est GFR (MDRD) Af Amer 38 L 39 L Est GFR (MDRD) Non-Af 31 L 32 L BUN/Creatinine Ratio 27.3 H 26.5 H Glucose 106 141 H Lactic Acid Calcium 8.7 8.9 Magnesium 1.6 Total Bilirubin 0.50 AST 25 ALT 27 Alkaline Phosphatase 73 Troponin I Total Protein 5.6 L Albumin 2.7 L Globulin 2.9 Albumin/Globulin Ratio 0.9 TSH 1.39 Urine Color Urine Clarity Urine pH Ur Specific [place] Urine Protein Urine Glucose (UA) Urine Ketones Urine Occult Blood Urine Nitrite Urine Bilirubin Urine Urobilinogen Ur Leukocyte Esterase Urine RBC Urine WBC Ur Squamous Epith Cells Urine Bacteria Urine Mucus Random Vancomycin POC Glucose 07/26/19 07/26/19 07/26/19 04:00 04:00 04:00 WBC RBC Hgb Hct MCV MCH MCHC RDW Std Deviation RDW Coeff of Delia Plt Count MPV Immature Gran % (Auto) Neut % (Auto) Lymph % (Auto) [place] % (Auto) Eos % (Auto) Baso % (Auto) Absolute Neuts (auto) Absolute Lymphs (auto) Nucleated RBC % PT INR APTT 189.2 H* Sodium Potassium Chloride Carbon Dioxide Anion Gap BUN Creatinine Estim Creat Clear Calc Est GFR (MDRD) Af Amer Est GFR (MDRD) Non-Af BUN/Creatinine Ratio Glucose Lactic Acid 0.9 Calcium Magnesium Total Bilirubin AST ALT Alkaline Phosphatase Troponin I Total Protein Albumin Globulin Albumin/Globulin Ratio TSH Urine Color Urine Clarity Urine pH Ur Specific [place] Urine Protein Urine Glucose (UA) Urine Ketones Urine Occult Blood Urine Nitrite Urine Bilirubin Urine Urobilinogen Ur Leukocyte Esterase Urine RBC Urine WBC Ur Squamous Epith Cells Urine Bacteria Urine Mucus Random Vancomycin Pending POC Glucose Clinical Impression(s) from Imaging Studies Brain CT 07/25/19 12:12 IMPRESSION: Chronic involutional changes of the brain. Electronically Signed: Renan Domínguez, at 13:16 EDT , Service support , Chest X-Ray 07/25/19 12:45 IMPRESSION: Mild residual increased markings at the left lung base. Electronically Signed: Renan Domínguez, at 13:02 EDT , Service support , Current Medications Acetaminophen (Tylenol) 650 mg PO Q6H PRN PRN PRN Reason: Pain Score 1-10/Temp > 100.7 F Al Hydroxide/Mg Hydroxide (Mylanta Ii) 30 ml PO Q6H PRN PRN PRN Reason: Gastric Burning Albuterol Sulfate (Ventolin Aerosols) 2.5 mg INHALATION Q2H PRN PRN PRN Reason: SOB/Wheezing Aspirin (Aspirin, Baby) 81 mg PO DAILY@0800 HAIDER Atorvastatin Calcium (Lipitor) 20 mg PO QHS [facility] Last Admin: 07/25/19 22:13 Dose: 20 mg Documented by: Dextrose (D50w Syringe) 0 gm IV X1 PRN; Protocol PRN Reason: Hypoglycemia Glucagon () 1 mg IM .X1 PRN PRN Reason: Hypoglycemia Heparin Sodium (Porcine) (Heparin Na) 0 unit IV UD PRN; Protocol Lactated Ringer's () 1,000 mls @ 75 mls/hr IV .[id number] [facility] Last Admin: 07/26/19 05:34 Dose: 75 mls/hr Documented by: Piperacillin Sod/Tazobactam (Sod 3.375 gm/ Sodium Chloride) 50 mls @ 12.5 mls/hr IV Q12 [facility] Last Infusion: 07/26/19 02:08 Dose: Infused Documented by: Sodium Chloride () 250 mls @ 15 mls/hr IV .[id number] PRN PRN Reason: Saline Flush Sodium Chloride () 250 mls @ 15 mls/hr IV .[id number] PRN PRN Reason: Additional IVPB Infusion Heparin Sodium/Dextrose () 25,000 units in 250 mls @ 11 mls/hr IV .[id number] [facility]; Protocol Last Titration: 07/26/19 05:19 Dose: 0 units/hr, 0 mls/hr Documented by: Norepinephrine Bitartrate 8 mg (/ Sodium Chloride) 250 mls @ 9.375 mls/hr CONT INF .[id number] [facility]; Protocol Last Titration: 07/26/19 06:00 Dose: 10 mcg/min, 18.8 mls/hr Documented by: Insulin Human Lispro (Humalog Kwikpen (Bkc)) 0 unit SC TIDAC [facility]; Protocol Last Admin: 07/25/19 17:58 Dose: 1 units Documented by: Ipratropium [place] (Atrovent) 0.5 mg INHALATION Q6HWA.RT [facility] Last Admin: 07/26/19 01:16 Dose: 0.5 mg Documented by: Melatonin (Melatonin) 3 mg PO QHS PRN PRN PRN Reason: Insomnia Ondansetron HCl (Zofran) 4 mg IV Q8H PRN PRN PRN Reason: NAUSEA/VOMITING Senna/Docusate Sodium (Senokot-S, Jesica-Colace) 2 tablet PO BID PRN PRN PRN Reason: Constipation Sodium Chloride () 10 - 40 ml IV UD PRN PRN Reason: SALINE FLUSH Last Admin: 07/26/19 00:42 Dose: 40 ml Documented by: Tamsulosin HCl (Flomax) 0.4 mg PO BID [facility] Last Admin: 07/25/19 22:13 Dose: 0.4 mg Documented by: Assessment/Plan Active and Suspected Problems (Last Updated 07/26/19 @ 13:58 by Anneliese Cary) Hypotension (Acute) Anemia (Acute) Non-ST elevated myocardial infarction (non-STEMI) (Acute 07/25/19) Nonrheumatic aortic (valve) stenosis (Acute) RECOMMENDATIONS: 1. Continue vasopressor support to maintain a mean arterial pressure at or above 65 mmHg. 2. Continue current medical management of hyperkalemia. 3. Obtain echocardiogram. 4. Trend troponins. 5. Cardiology consultation is pending. 6. Continue empiric antimicrobials. 7. Continue scheduled bronchodilator therapy. 8. Wean supplemental oxygen as tolerated. 9. Place PICC line. IMPRESSIONS: 1. Distributive versus cardiogenic shock The patient technically met septic shock criteria based upon his initial presentation, laboratory work-up and vital signs. However, there is no readily identifiable source of infection. Other potential etiology for the patient's hypotension would include medication related, as the patient is on several antihypertensives on an outpatient basis. Alternatively, a pulmonary vascular etiology such as PE could also be a consideration. Nevertheless, the patient's creatinine would preclude the ability to obtain a CTA chest. He is currently on a continuous heparin infusion, which will be continued. I agree with continuing empiric antimicrobials for now. Echocardiogram is currently pending. We will plan to continue vasopressor support to maintain a mean arterial pressure at or above 65 mmHg. All antihypertensive medications have been placed on hold. 2. Acute kidney injury/hyperkalemia Likely prerenal in etiology with possible ATN due to hemodynamic instability. Continue current supportive measures as noted above. Continue medical management of hyperkalemia. Monitor urine output. No current indication for renal replacement therapy. 3. Non-ST segment elevation PA Cardiology consultation is currently pending. Echocardiogram is pending. 4. History of severe COPD/chronic hypoxemic respiratory failure/recent admission for COVID pneumonia The patient does have known severe COPD and chronic supplemental oxygen dependency. He is on a triple therapy inhaler regimen on an outpatient basis. However, he does appear to be at his baseline from a respiratory perspective. Continue bronchodilator therapy as ordered. 5. Diabetes mellitus/hypertension/peripheral arterial disease/coronary artery disease/neuropathy Complicates care, management, recovery and prognosis. Continue sliding scale insulin coverage. Recommend physical therapy evaluation today. TIME: 45 minutes of critical care time, independent of procedures, was spent addressing the patient's distributive versus cardiogenic shock, acute kidney injury, hyperkalemia, non-ST segment elevation PA, severe COPD, chronic hypoxemic respiratory failure, review of all data and collaboration with the care team. ([id number]) [id number] Critical care first hour
[2019-07-26 06:33] LABS: Vancomycin, Random Level 10.3 ug/mL (0.0-15.0)
--- NOTE | 2019-07-26 08:00 | PCM.PN.HOSP ---
Reason for Visit: Follow-up for shock, hypotensive on vasopressor in ICU. Non-STEMI Objective: Patient was admitted yesterday after fall, hypotension and shortness of breath. Prior to that he had near fall situation with sickness but told himself on the walker. He hit his head on the back and had a small skin tear. Patient has severe COPD and shortness of breath getting worse. Oxygen requirement increased to 5 to 6 L from 3 to 4 L at baseline. Patient was found hypotensive with a blood pressure has been on lower side as an outpatient and Dr. Mcdowell has adjusted his antihypertensive medications. EKG shows no ischemic changes. General: Alert, Oriented x3, Cooperative HEENT: Atraumatic, PERRLA, EOMI, Normocephalic Oral: No Gingival or Mucosal Lesions/ Ulcerations Neck: Supple, No JVD, Negative Carotid Bruits Lungs: Air entry diminished in bilateral lung bases. No audible wheezing. No crepitation/rhonchi. Cardiovascular: Regular rate, Regular Rhythm, Normal S1, Normal S2, No murmurs, sinus rhythm with PVCs on conservation officer Abdomen: Bowel Sounds Present, Soft, Non Tender, Non-Distended : Patient has Leiva catheter. Clear urine Extremities: No edema, Capillary Refill Less than 3 Seconds Skin: No rashes, No breakdown Musculoskeletal: No Tenderness to Palpation of Joints or Extremities Neurological: Cranial nerves II-XII grossly intact, Deep Tendon Reflexes 2+/4 and Symmetrical, Neuro grossly intact Psych/Mental Status: Normal Affect, Appropriate Vitals/I&O's: Vital Signs Temp Pulse Resp BP Pulse Ox 98.9 F 105 H 20 H 107/48 L 91 07/26/19 04:00 07/26/19 07:37 07/26/19 06:53 07/26/19 06:00 07/26/19 06:56 Oxygen Flow Rate (L/min) 4 Oxygen Delivery Method Nasal Cannula Weight: 167 lb 8.821 oz Body Mass Index (BMI) 23.8 Intake and Output for Last 24 Hours 07/24/19 07/25/19 07/26/19 23:59 23:59 23:59 Intake Total 4567.5 / 4722.67 779.07 / 779.07 Output Total 2425 / 2425 875 / 875 Balance 2142.5 / 2297.67 -95.93 / -95.93 Laboratory Results 07/25/19 11:59: WBC 6.2, RBC 3.04 L, Hgb 9.3 L, Hct 30.8 L, MCV 101.3 H, MCH 30.6, MCHC 30.2 L, RDW Std Deviation 53.0 H, RDW Coeff of Delia 14.2, Plt Count 110 L, MPV 12.1 H, Immature Gran % (Auto) 0.300, Neut % (Auto) 86.3 H, Lymph % (Auto) 5.5 L, [place] % (Auto) 5.9, Eos % (Auto) 1.8, Baso % (Auto) 0.2, Absolute Neuts (auto) 5.3, Absolute Lymphs (auto) 0.34 L, Nucleated RBC % 0 07/25/19 11:59: Sodium 134 L, Potassium 6.4 H*, Chloride 95 L, Carbon Dioxide 31.0, Anion Gap 8, BUN 69 H, Creatinine 3.06 H, Estim Creat Clear Calc 18.61, Est GFR (MDRD) Af Amer 25 L, Est GFR (MDRD) Non-Af 21 L, BUN/Creatinine Ratio 22.5 H, Glucose 281 H, Calcium 9.3, Total Bilirubin 0.50, AST 19, ALT 30, Alkaline Phosphatase 93, Troponin I 0.621 H*, Total Protein 6.5, Albumin 3.2, Globulin 3.3, Albumin/Globulin Ratio 1.0 07/25/19 11:59: Lactic Acid 4.8 H* 07/25/19 11:59: Magnesium 1.9 07/25/19 13:55: Urine Color Yellow, Urine Clarity Clear, Urine pH 6.0, Ur Specific [place] 1.010, Urine Protein Negative, Urine Glucose (UA) Normal, Urine Ketones Negative, Urine Occult Blood Negative, Urine Nitrite Negative, Urine Bilirubin Negative, Urine Urobilinogen Normal, Ur Leukocyte Esterase Negative, Urine RBC 0 SEEN, Urine WBC 0 SEEN, Ur Squamous Epith Cells 0 SEEN, Urine Bacteria 0 SEEN, Urine Mucus 0 SEEN 07/25/19 17:32: Sodium 139, Potassium 6.0 H*, Chloride 104, Carbon Dioxide 30.0, Anion Gap 5, BUN 62 H, Creatinine 2.50 H, Estim Creat Clear Calc 22.78, Est GFR (MDRD) Af Amer 32 L, Est GFR (MDRD) Non-Af 26 L, BUN/Creatinine Ratio 24.8 H, Glucose 198 H, Calcium 8.5 07/25/19 17:32: Lactic Acid 3.4 H* 07/25/19 17:32: Troponin I 1.930 H* 07/25/19 17:34: POC Glucose 187 H 07/25/19 21:15: Troponin I 1.950 H* 07/25/19 21:30: PT 13.2, INR 1.1, APTT 28.9 07/25/19 21:36: POC Glucose 148 H 07/26/19 00:40: Sodium 140, Potassium 5.6 H, Chloride 102, Carbon Dioxide 35.0 H, Anion Gap 3 L, BUN 59 H, Creatinine 2.16 H, Estim Creat Clear Calc 26.37, Est GFR (MDRD) Af Amer 38 L, Est GFR (MDRD) Non-Af 31 L, BUN/Creatinine Ratio 27.3 H, Glucose 106, Calcium 8.7 07/26/19 04:00: WBC 5.7, RBC 2.81 L, Hgb 8.6 L, Hct 27.2 L, MCV 96.8 H, MCH 30.6, MCHC 31.6 L, RDW Std Deviation 50.6 H, RDW Coeff of Delia 14.4, Plt Count 110 L, MPV 11.7 07/26/19 04:00: Sodium 140, Potassium 5.5 H, Chloride 101, Carbon Dioxide 34.0 H, Anion Gap 5, BUN 56 H, Creatinine 2.11 H, Estim Creat Clear Calc 26.99, Est GFR (MDRD) Af Amer 39 L, Est GFR (MDRD) Non-Af 32 L, BUN/Creatinine Ratio 26.5 H, Glucose 141 H, Calcium 8.9, Magnesium 1.6, Total Bilirubin 0.50, AST 25, ALT 27, Alkaline Phosphatase 73, Total Protein 5.6 L, Albumin 2.7 L, Globulin 2.9, Albumin/Globulin Ratio 0.9, TSH 1.39 07/26/19 04:00: Random Vancomycin 10.3 07/26/19 04:00: Lactic Acid 0.9 07/26/19 04:00: APTT 189.2 H* Current Medications Acetaminophen (Tylenol) 650 mg PO Q6H PRN PRN PRN Reason: Pain Score 1-10/Temp > 100.7 F Al Hydroxide/Mg Hydroxide (Mylanta Ii) 30 ml PO Q6H PRN PRN PRN Reason: Gastric Burning Albuterol Sulfate (Ventolin Aerosols) 2.5 mg INHALATION Q2H PRN PRN PRN Reason: SOB/Wheezing Aspirin (Aspirin, Baby) 81 mg PO DAILY@0800 [facility] Atorvastatin Calcium (Lipitor) 20 mg PO QHS [facility] Last Admin: 07/25/19 22:13 Dose: 20 mg Documented by: Dextrose (D50w Syringe) 0 gm IV X1 PRN; Protocol PRN Reason: Hypoglycemia Glucagon () 1 mg IM .X1 PRN PRN Reason: Hypoglycemia Heparin Sodium (Porcine) (Heparin Na) 0 unit IV UD PRN; Protocol Lactated Ringer's () 1,000 mls @ 75 mls/hr IV .[id number] [facility] Last Admin: 07/26/19 05:34 Dose: 75 mls/hr Documented by: Piperacillin Sod/Tazobactam (Sod 3.375 gm/ Sodium Chloride) 50 mls @ 12.5 mls/hr IV Q12 [facility] Last Infusion: 07/26/19 02:08 Dose: Infused Documented by: Sodium Chloride () 250 mls @ 15 mls/hr IV .[id number] PRN PRN Reason: Saline Flush Sodium Chloride () 250 mls @ 15 mls/hr IV .[id number] PRN PRN Reason: Additional IVPB Infusion Heparin Sodium/Dextrose () 25,000 units in 250 mls @ 11 mls/hr IV .[id number] [facility]; Protocol Last Titration: 07/26/19 07:20 Dose: 800 units/hr, 8 mls/hr Documented by: Norepinephrine Bitartrate 8 mg (/ Sodium Chloride) 250 mls @ 9.375 mls/hr CONT INF .[id number] [facility]; Protocol Last Titration: 07/26/19 06:00 Dose: 10 mcg/min, 18.8 mls/hr Documented by: Insulin Human Lispro (Humalog Kwikpen (Bkc)) 0 unit SC TIDAC [facility]; Protocol Last Admin: 07/25/19 17:58 Dose: 1 units Documented by: Ipratropium [place] (Atrovent) 0.5 mg INHALATION Q6HWA.RT [facility] Last Admin: 07/26/19 06:53 Dose: 0.5 mg Documented by: Melatonin (Melatonin) 3 mg PO QHS PRN PRN PRN Reason: Insomnia Ondansetron HCl (Zofran) 4 mg IV Q8H PRN PRN PRN Reason: NAUSEA/VOMITING Senna/Docusate Sodium (Senokot-S, Jes[place]-Colace) 2 tablet PO BID PRN PRN PRN Reason: Constipation Sodium Chloride () 10 - 40 ml IV UD PRN PRN Reason: SALINE FLUSH Last Admin: 07/26/19 00:42 Dose: 40 ml Documented by: Tamsulosin HCl (Flomax) 0.4 mg PO BID [facility] Last Admin: 07/25/19 22:13 Dose: 0.4 mg Documented by: STROKE Vital Signs/Narrative: Vital Signs Pulse Resp BP Pulse Ox 07/26/19 07:37 105 H 07/26/19 06:56 91 07/26/19 06:53 107 H 20 H 07/26/19 06:00 96 18 107/48 L 99 07/26/19 05:00 104 H 19 H 123/47 H 98 Medical Necessity - Tobacco Use Smoking Status: Former smoker Assessment/Plan All Active Problems (Last Reviewed 07/25/19 @ 16:[address] Sindi Traylor, DO) Hypoxia (Acute) Bronchitis (Acute) Suspected COVID-19 virus infection (Acute) Community acquired bacterial pneumonia (Acute) COVID-19 (Acute) History of pneumonia (Acute) History of bronchitis (Acute) Hx of appendectomy (Resolved) COPD exacerbation (Acute) This 83-year-old gentleman with history of COPD, chronic hypoxic respiratory failure on 3 to 4 L of oxygen at baseline, recently discharged after COVID-19 pneumonia in June 2018 is admitted with hypotension, shock on vasopressor, worsening shortness of breath and fall and hyperkalemia 1. Shock, possible cardiogenic versus distributive: Patient has been afebrile with no history of fever at home. Chest x-ray individually reviewed and shows no acute infiltrate. Lactic acid is elevated. Blood cultures x2 and urine culture are pending. UA is negative of pyuria or hematuria, LE and nitrite are negative. On vasopressor support. PICC line is ordered. Patient is on empiric antibiotics. Had vancomycin. 2. Non-STEMI history of coronary artery status post stents: Troponins are elevated, maximum 1.95. Echo is pending. On IV heparin drip, baby aspirin, atorvastatin. Patient is in shock therefore no antihypertensive medication or beta-liyah. EKG shows no ischemic changes. Seen by police clerk. Discussed with him. 3. FER on CKD stage III with hyperkalemia: Patient had hyperkalemia cocktail and was given Kayexalate. Repeat K5.5. Patient has good urine output, about 2.5 L on 07/24. Creatinine is improved from 3.0-2.11. Baseline 1.0-1.3. Monitor intake and output; patient has Leiva catheter 4. Severe COPD, chronic hypoxic respiratory failure with recent COVID-19 pneumonia in June 2019: On a scheduled nebulization. Incentive spirometry, Pap baseline 3 to 4 L/min currently on baseline. FEV1 37% in 5. 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 6. Anemia of chronic disease, normocytic normochromic anemia and acute thrombocytopenia possible secondary to acute inflammation: Platelet count is decreased 110 at baseline about 200s. Patient hemoglobin is generally maintained 10 to 12 g%. Most recent 8.6. Monitor CBC Other comorbidities include hypertension, peripheral arterial disease, bilateral carotid stenosis, anemia of chronic disease, thrombocytopenia, BPH DVT prophylaxis: SCDs. On IV heparin drip for non-STEMI Total time of the visit including total time spent in counseling or coordination of care, (more than 50% of the total time, spent in obtaining medical information from nurses and other ancillary care providers), discussion with consultants, review of labs and imaging is 30 minutes Inpatient E&M: [id number] [place] [id number]
[2019-07-26 08:16] LABS: Bedside Glucose 173 mg/dL (70-110)
[2019-07-26] MEDS: Insulin Lispro 100 UNIT/ML INSULN.PEN SC ×3 (08:30→17:04)
[2019-07-26 09:19] LABS: Procalcitonin 0.41 ng/mL (0.00-0.09)
[2019-07-26] MEDS: Tamsulosin HCl 0.4 MG Capsule PO ×2 (09:35→21:12)
[2019-07-26] MEDS: Aspirin 81 MG TAB.CHEW PO (09:36)
--- NOTE | 2019-07-26 10:38 | CON.PCM_ITS ---
Reason for Consult Date of Consultation: 07/26/19 Reason for Consultation: Weakness and abnormal cardiac enzymes History of Present Illness: The patient is a 83 year old M who presented to the emergency room after an apparent fall he was going to the bathroom he says and went to stand up and his legs gave out on him. He denies hitting his head but he says that he feels weaker than he did before. Due to the above concerns he presented to the emergency room and was evaluated. He denies any chest pain he has had some shortness of breath he was recently admitted to the hospital from June 30- with a pneumonia and tested positive for COVID-19. At this time he is not had a fever or cough and he says that his blood pressure has been low during this admission. He required reduction of his blood pressure medications by his primary physician. He was evaluated in the emergency room and at that time his EKG demonstrated normal sinus rhythm with sinus arrhythmia and no acute changes. He was mildly hypotensive and he was tachycardic. His creatinine was noted to be markedly elevated from his baseline and was currently 3.0 with a lactic acid level of 4.8 and a mild troponin elevation. It has since remained flat. He denies any chest pain specifically. He was initially admitted to the telemetry care unit. He got hypotensive and required to be transferred to the intensive care unit and was started on pressor agents. This morning he appears to be much better with a normal blood pressure and his mentating quite well. Past Medical History Allergies/Adverse Reactions: Allergies WORM MEDICATION Allergy (Uncoded 03/13/19 09:25) Hives 50 years ago. kids had got worms so the whole family needed to be treated for it. Home Medications: Ambulatory Orders Medication Instructions Recorded Lisinopril/Hydrochlorothiazide 1 tab PO DAILY 01/18/17 [Zestoretic Tablet] Metoprolol Succinate [Toprol Xl] 50 mg PO DAILY 01/18/17 tiotropium bromide 18 mcg capsule 18 mcg INHALATION DAILY #30 inh 03/13/19 with inhalation device Amlodipine [Norvasc] 10 mg PO DAILY 07/01/19 Atorvastatin Calcium [Lipitor] 20 mg PO DAILY 07/01/19 Pioglitazone [Actos] 45 mg PO DAILY 07/01/19 Furosemide [Lasix] 20 mg PO BIDLX #60 tab 07/08/19 Potassium Chloride [K-Dur] 20 meq PO DAILY #30 tab 07/08/19 Tamsulosin HCl [Flomax] 0.4 mg PO BID #120 cap 07/08/19 Gabapentin [Neurontin] 300 mg PO TID 07/25/19 Glimepiride [Amaryl] 1 mg PO DAILY 07/25/19 Past Medical History (Chronic Problems): Chronic Problems (Last Reviewed 07/25/19 @ 16:[address] Sindi Traylor DO) Chronic respiratory failure (Chronic) Acute and chronic respiratory failure (Chronic) Chronic respiratory failure with hypoxia (Chronic) Carotid stenosis, bilateral (Chronic) Peripheral arterial disease (Chronic) Coronary artery disease (Chronic) History of cardiac stents (Chronic) Dyslipidemia (Chronic) DM type 2 (diabetes mellitus, type 2) (Chronic) Hypertension (Chronic) COPD (chronic obstructive pulmonary disease) (Chronic) FEV1 37% (01/09/2019) Surgical History: - - Carotid endarterectomy, bilateral femoral bypass Psychiatric History: No pertinent psych hx - *Family History Maternal Family History: Family History (Last Reviewed 07/25/19 @ 16:[address] Sindi Traylor DO) Other Family history unknown History Items: No pertinent history Paternal Family History: Family History (Last Reviewed 07/25/19 @ 16:[address] Sindi Traylor DO) Other Family history unknown History Items: No pertinent history Smoking Status: Former smoker Alcohol: None Drugs: None Review of Systems - Review of Systems General: Reports: Fatigue, Malaise, Weakness. Denies: Fever, Night Sweats HEENT: Denies: Vision Change Cardiovascular: Denies: Chest Discomfort, Shortness of Breath, Orthopnea, PND, Peripheral Edema, Palpitations, Lightheadedness, Dizziness, Near Syncope, Syncope Respiratory: Denies: Cough, Sputum Production, Hemoptysis Gastrointestinal: Denies: Hematemesis, Hematochezia, Melena Genitourinary: Denies: Dysuria, Hematuria Skin: Denies: Rash Neurological: Reports: Dizziness Psychiatric: Denies: Anxiety Subjectve: Patient seen and evaluated. Appears to be stable. Objective: Vital Signs Temp Pulse Resp BP Pulse Ox 99.2 F H 106 H 18 112/45 L 96 07/26/19 08:00 07/26/19 10:00 07/26/19 10:00 07/26/19 10:00 07/26/19 10:00 Oxygen Flow Rate (L/min) 4 Oxygen Delivery Method Nasal Cannula Weight: 167 lb 8.821 oz Body Mass Index (BMI) 23.8 Intake and Output for Last 24 Hours 07/24/19 07/25/19 07/26/19 23:59 23:59 23:59 Intake Total 4567.5 / 4722.67 854.27 / 854.27 Output Total 2425 / 2425 875 / 875 Balance 2142.5 / 2297.67 -20.73 / -20.73 General: Awake, Alert, Oriented x 3 HEENT: PERRL, EOMI, Sclera Non Icteric Neck: Supple, Good ROM, No Lymph Node Enlargement Lungs: Clear to auscultation Cardiovascular: Regular Rhythm, Normal S1, Normal S2, No Rubs, No Gallops Murmur Murmur: Grade 2/6, Early Systolic, LLSB Vascular: No Carotid Bruits, Normal Femoral Pulses, Normal Radial Pulses, Normal Dorsalis Pedal Pulse, Normal Posterior Tibial Pulses Abdomen: Bowel Sounds Present, Soft, Non Tender, No HSM, No Organomegaly Extremities: No Cyanosis, No Clubbing, No edema Skin: No Rashes Lymphatic: No Lymph Node Enlargement Neurological: No Focal Motor or Sensory Deficit 07/25/19 11:59: WBC 6.2, RBC 3.04 L, Hgb 9.3 L, Hct 30.8 L, MCV 101.3 H, MCH 30.6, MCHC 30.2 L, Plt Count 110 L, MPV 12.1 H, Immature Gran % (Auto) 0.300, Neut % (Auto) 86.3 H, Lymph % (Auto) 5.5 L, [place] % (Auto) 5.9, Eos % (Auto) 1.8, Baso % (Auto) 0.2, Absolute Neuts (auto) 5.3, Nucleated RBC % 0 07/25/19 11:59: Sodium 134 L, Potassium 6.4 H*, Chloride 95 L, Carbon Dioxide 31.0, Anion Gap 8, BUN 69 H, Creatinine 3.06 H, Est GFR (MDRD) Af Amer 25 L, Est GFR (MDRD) Non-Af 21 L, BUN/Creatinine Ratio 22.5 H, Glucose 281 H, Calcium 9.3, Total Bilirubin 0.50, Troponin I 0.621 H* 07/25/19 11:59: Lactic Acid 4.8 H* 07/25/19 11:59: Magnesium 1.9 07/25/19 13:55: Urine Color Yellow, Urine Clarity Clear, Urine pH 6.0, Ur Specific [place] 1.010, Urine Protein Negative, Urine Glucose (UA) Normal, Urine Ketones Negative, Urine Occult Blood Negative, Urine Nitrite Negative, Urine Bilirubin Negative, Urine Urobilinogen Normal, Ur Leukocyte Esterase Negative, Urine RBC 0 SEEN, Urine WBC 0 SEEN 07/25/19 17:32: Sodium 139, Potassium 6.0 H*, Chloride 104, Carbon Dioxide 30.0, Anion Gap 5, BUN 62 H, Creatinine 2.50 H, Est GFR (MDRD) Af Amer 32 L, Est GFR (MDRD) Non-Af 26 L, BUN/Creatinine Ratio 24.8 H, Glucose 198 H, Calcium 8.5 07/25/19 17:32: Lactic Acid 3.4 H* 07/25/19 17:32: Troponin I 1.930 H* 07/25/19 21:15: Troponin I 1.950 H* 07/25/19 21:30: PT 13.2, INR 1.1, APTT 28.9 07/26/19 00:40: Sodium 140, Potassium 5.6 H, Chloride 102, Carbon Dioxide 35.0 H , Anion Gap 3 L, BUN 59 H, Creatinine 2.16 H, Est GFR (MDRD) Af Amer 38 L, Est GFR (MDRD) Non-Af 31 L, BUN/Creatinine Ratio 27.3 H, Glucose 106, Calcium 8.7 07/26/19 04:00: WBC 5.7, RBC 2.81 L, Hgb 8.6 L, Hct 27.2 L, MCV 96.8 H, MCH 30.6, MCHC 31.6 L, Plt Count 110 L, MPV 11.7 07/26/19 04:00: Sodium 140, Potassium 5.5 H, Chloride 101, Carbon Dioxide 34.0 H , Anion Gap 5, BUN 56 H, Creatinine 2.11 H, Est GFR (MDRD) Af Amer 39 L, Est GFR (MDRD) Non-Af 32 L, BUN/Creatinine Ratio 26.5 H, Glucose 141 H, Calcium 8.9, Magnesium 1.6, Total Bilirubin 0.50 07/26/19 04:00: Lactic Acid 0.9 07/26/19 04:00: APTT 189.2 H* Rhythm: EKG: Normal sinus rhythm with no acute changes ECHO: Stress Test: Cardiac Cath: PCI: CT Surgery: Holter monitor: EPS: PPM: CXR: Chest CT Scan: Assessment/Plan 1. Non-ST elevation myocardial infarction * He presents with hypotension sepsis elevated lactic acid and is noted to have an elevated troponin. He has no EKG changes and no chest pain. My suspicion is that the above is secondary to fixed coronary disease rather than plaque rupture. * An echocardiogram is being performed to assess his left ventricular function * He will continue on the appropriate beta-liyah and risk factor modifying drugs after his blood pressure is better improved. * Will decide on whether he would need a noninvasive test for re-stratification or directly to cardiac catheterization at some point after he has recovered from the above. * 2. Recent COVID-19 * He appears to be still recovering from his recent COVID-19 infection for which he received convalescent plasma. * Will defer to hospitalist and primary care physician regarding the above * 3. Severe anemia * He appears to be rather anemic. At this time I am hesitant to place him on a dual antiplatelet therapeutic agent. We will therefore continue to manage this conservatively. * 4. Previous coronary artery disease * He does have a history of previous coronary artery disease. From the history it appears that he was stented previously. It is not clear exactly where the stent was placed in his coronary anatomy. At the appropriate time he would require evaluation. He does have significant renal dysfunction and I would be hesitant to perform any invasive therapy which could worsen the above. * He should continue with the supportive care at this particular time. * 5 Aortic valve stenosis * This appears to be moderate and will not make any therapeutic changes at thuis time. * Thank you for allowing me to participate in the care of your patient. Please don't hesitate to call if any issues arise.
[2019-07-26 11:45] LABS: Bedside Glucose 232 mg/dL (70-110)
[2019-07-26 13:49] LABS: Partial Thromboplast Time 73.4 Seconds (24.1-36.2)
[2019-07-26 17:11] LABS: Bedside Glucose 212 mg/dL (70-110)
--- NOTE | 2019-07-26 18:00 | CASEMGMT ---
ANDRE CHANDLER Re-admission note: Prior admission: Pt admitted 07/01/19 w/COPD Exac. COVID-19 positive. Pt had received convalescent plasman on 07/04/19. See ANDRE CHANDLER admission assessment note 07/02/19. Pt has home O2 @ 4 L/m via n/c at rest and up to 6 L/M w/exertion through [facility]. Pt lives with son, Brandon. PCP is Dr Alfredo Mcdowell. Pt follows w/Dr Ye, pulmonology and cardiology. Discharged home w/[facility] on 07/08/19. Current admission: Re-admitted 07/25/19 w/Fall, dehydration, hypotension. ANDRE CHANDLER in to talk with pt. Pt states he has been doing fairly well at home until yesterday when he became very weak and fell. He states he is not sure at this time if he wishes to go to a SNF @ d/c or return home w/HHC. He states he thinks he is still active w/[facility]. He states he wants to see how well he recovers before deciding discharge plan. States if he would not feel well enough to return home, he would only want to go to TCU. D/C Plan: Undetermined at this time. Home w/resumption of HHC or TCU. Vinay STATON RN, CM
[2019-07-26 19:45] LABS: Partial Thromboplast Time 68.9 Seconds (24.1-36.2)
[2019-07-26] MEDS: Atorvastatin Calcium 20 MG Tablet PO (21:12)
[2019-07-26 21:21] LABS: Bedside Glucose 191 mg/dL (70-110)
[2019-07-26] MEDS: HEPARIN/D5w 25,000 UNITS 25,000 UNITS/250 ML IV.SOLN. 8 UNITS IV (23:23)
[2019-07-27] VITALS (48 sets, daily range): BP systolic 91–127; BP diastolic 44–80; PULSE 87–120; RESP 15–22; TEMP 36.7–37.2; O2SAT 92–100
[2019-07-27 03:27] LABS: Absolute Lymphocyte Count 1.01 X10^3/uL (0.83-4.51); Absolute Neutrophil Count 2.1 X10^3/uL (2.0-7.7); Basophil# 0.01 X10^3/uL; Basophil% 0.3 % (0-1); Eosinophil# 0.33 X10^3/uL; Eosinophils% 8.7 % (0-5); Hematocrit 24.5 % (40-54); Hemoglobin 7.7 g/dL (13.0-16.5); Lymphocyte # 1.01 X10^3/ul (4.0); Lymphocyte % 26.6 % (19-41); Mean Corp Hgb Conc 31.4 g/dL (32-36); Mean Corpuscular Hgb 30.8 pg (27.0-32.0); Monocyte# 0.33 X10^3/uL; Monocyte% 8.7 % (0-10); NRBC Flagged by Analyzer 0 % (0-5); Neutrophil # 2.09 X10^3/uL (2.7-7.7); Neutrophil % 55.2 % (47-70); Platelet Count 101 K/mm3 (150-450); RBC Distribution Width CV 14.4 % (11.6-14.6); RBC Distribution Width SD 51.1 fl (35.1-43.9); White Blood Count 3.8 K/mm3 (4.4-11.0)
[2019-07-27 03:46] LABS: Anion Gap 6 (5-15); BUN 37 mg/dL (7-18); BUN/Creat Ratio 24.3 RATIO (10-20); Calcium,Total 8.3 mg/dL (8.5-10.1); Chloride 101 mmol/L (98-107); Creatinine, Serum 1.52 mg/dL (0.70-1.30); EST Glomerular Filtration Rate 47 mL/min (>60); Est Glom Filt Rate - Afr Amer 57 mL/min (>60); Estimated Creatinine Clearance 37.47 ml/min; Glucose 165 mg/dL (74-106); Potassium 4.2 mmol/L (3.5-5.1); Sodium Level 139 mmol/L (136-145)
[2019-07-27 04:47] LABS: Partial Thromboplast Time 72.6 Seconds (24.1-36.2)
--- NOTE | 2019-07-27 06:21 | PCM.PN.INT ---
Subjective: The patient was seen and examined at the bedside this morning. Events from the last 24 hours have been reviewed. The patient is currently afebrile. He is hemodynamically stable, requiring Levophed at 5 mcg/min to maintain hemodynamic stability. Hemoglobin is down to 7.7 g/dL this morning. However, creatinine has improved to 1.52. The patient remains on a continuous heparin infusion. The patient surface echocardiogram yesterday did reveal stage I diastolic dysfunction with a preserved ejection fraction of 65%. There was evidence of moderate aortic stenosis. The patient only reports a mild degree of shortness of breath this morning. He denies the presence of a cough or chest pain. Objective: The patient's most recent lab work, culture data and imaging studies have all been personally reviewed. Blood and urine cultures have shown no growth to date. The patient was positive for coronavirus on June 30. 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 General: Alert, Cooperative, No apparent distress HEENT: Atraumatic, PERRLA, Normocephalic Oral: Moist Mucosa, No Gingival or Mucosal Lesions/ Ulcerations Neck: Supple, No Nodes, Trachea Midline Lungs: No rhonchi, No wheeze, No rales, Diminished, - - No conversational dyspnea Cardiovascular: Regular rate, Regular Rhythm, Normal S1, Normal S2, Murmur Abdomen: Bowel Sounds Present, Soft, Non Tender Extremities: No clubbing, No cyanosis, No edema Skin: No breakdown, - - Skin tear of upper extremity Musculoskeletal: No Muscle Wasting Lymphatic: No Cervical, Supraclavicular, or Inguinal Adenopathy Neurological: Cranial nerves II-XII grossly intact, Neuro grossly intact Psych/Mental Status: Normal Affect, Appropriate Vital Signs Temp Pulse Resp BP Pulse Ox 98.7 F 92 16 118/54 L 100 07/27/19 06:01 07/27/19 06:01 07/27/19 06:07/27/19 06:07/27/19 06:01 Oxygen Flow Rate (L/min) 4 Oxygen Delivery Method Nasal Cannula Weight: 167 lb 1.766 oz Body Mass Index (BMI) 23.8 Intake and Output for Last 24 Hours 07/25/19 07/26/19 07/27/19 23:59 23:59 23:59 Intake Total 4567.5 / 4722.67 3339.54 / 3348.94 769.18 / 769.18 Output Total 2425 / 2425 4675 / 4675 900 / 900 Balance 2142.5 / 2297.67 -1335.46 / -1326.06 -130.82 / -130.82 Labs (Last 48 Hours) 07/25/19 07/25/19 07/25/19 11:59 11:59 11:59 WBC 6.2 RBC 3.04 L Hgb 9.3 L Hct 30.8 L MCV 101.3 H MCH 30.6 MCHC 30.2 L RDW Std Deviation 53.0 H RDW Coeff of Delia 14.2 Plt Count 110 L MPV 12.1 H Immature Gran % (Auto) 0.300 Neut % (Auto) 86.3 H Lymph % (Auto) 5.5 L [place] % (Auto) 5.9 Eos % (Auto) 1.8 Baso % (Auto) 0.2 Absolute Neuts (auto) 5.3 Absolute Lymphs (auto) 0.34 L Nucleated RBC % 0 PT INR APTT Sodium 134 L Potassium 6.4 H* Chloride 95 L Carbon Dioxide 31.0 Anion Gap 8 BUN 69 H Creatinine 3.06 H Estim Creat Clear Calc 18.61 Est GFR (MDRD) Af Amer 25 L Est GFR (MDRD) Non-Af 21 L BUN/Creatinine Ratio 22.5 H Glucose 281 H Lactic Acid 4.8 H* Calcium 9.3 Magnesium Total Bilirubin 0.50 AST 19 ALT 30 Alkaline Phosphatase 93 Troponin I 0.621 H* Total Protein 6.5 Albumin 3.2 Globulin 3.3 Albumin/Globulin Ratio 1.0 Procalcitonin TSH Urine Color Urine Clarity Urine pH Ur Specific [place] Urine Protein Urine Glucose (UA) Urine Ketones Urine Occult Blood Urine Nitrite Urine Bilirubin Urine Urobilinogen Ur Leukocyte Esterase Urine RBC Urine WBC Ur Squamous Epith Cells Urine Bacteria Urine Mucus Random Vancomycin POC Glucose 07/25/19 07/25/19 07/25/19 11:59 13:55 17:32 WBC RBC Hgb Hct MCV MCH MCHC RDW Std Deviation RDW Coeff of Delia Plt Count MPV Immature Gran % (Auto) Neut % (Auto) Lymph % (Auto) [place] % (Auto) Eos % (Auto) Baso % (Auto) Absolute Neuts (auto) Absolute Lymphs (auto) Nucleated RBC % PT INR APTT Sodium 139 Potassium 6.0 H* Chloride 104 Carbon Dioxide 30.0 Anion Gap 5 BUN 62 H Creatinine 2.50 H Estim Creat Clear Calc 22.78 Est GFR (MDRD) Af Amer 32 L Est GFR (MDRD) Non-Af 26 L BUN/Creatinine Ratio 24.8 H Glucose 198 H Lactic Acid Calcium 8.5 Magnesium 1.9 Total Bilirubin AST ALT Alkaline Phosphatase Troponin I Total Protein Albumin Globulin Albumin/Globulin Ratio Procalcitonin TSH Urine Color Yellow Urine Clarity Clear Urine pH 6.0 Ur Specific [place] 1.010 Urine Protein Negative Urine Glucose (UA) Normal Urine Ketones Negative Urine Occult Blood Negative Urine Nitrite Negative Urine Bilirubin Negative Urine Urobilinogen Normal Ur Leukocyte Esterase Negative Urine RBC 0 SEEN Urine WBC 0 SEEN Ur Squamous Epith Cells 0 SEEN Urine Bacteria 0 SEEN Urine Mucus 0 SEEN Random Vancomycin POC Glucose 07/25/19 07/25/19 07/25/19 17:32 17:32 17:34 WBC RBC Hgb Hct MCV MCH MCHC RDW Std Deviation RDW Coeff of Delia Plt Count MPV Immature Gran % (Auto) Neut % (Auto) Lymph % (Auto) [place] % (Auto) Eos % (Auto) Baso % (Auto) Absolute Neuts (auto) Absolute Lymphs (auto) Nucleated RBC % PT INR APTT Sodium Potassium Chloride Carbon Dioxide Anion Gap BUN Creatinine Estim Creat Clear Calc Est GFR (MDRD) Af Amer Est GFR (MDRD) Non-Af BUN/Creatinine Ratio Glucose Lactic Acid 3.4 H* Calcium Magnesium Total Bilirubin AST ALT Alkaline Phosphatase Troponin I 1.930 H* Total Protein Albumin Globulin Albumin/Globulin Ratio Procalcitonin TSH Urine Color Urine Clarity Urine pH Ur Specific [place] Urine Protein Urine Glucose (UA) Urine Ketones Urine Occult Blood Urine Nitrite Urine Bilirubin Urine Urobilinogen Ur Leukocyte Esterase Urine RBC Urine WBC Ur Squamous Epith Cells Urine Bacteria Urine Mucus Random Vancomycin POC Glucose 187 H 07/25/19 07/25/19 07/25/19 21:15 21:30 21:36 WBC RBC Hgb Hct MCV MCH MCHC RDW Std Deviation RDW Coeff of Delia Plt Count MPV Immature Gran % (Auto) Neut % (Auto) Lymph % (Auto) [place] % (Auto) Eos % (Auto) Baso % (Auto) Absolute Neuts (auto) Absolute Lymphs (auto) Nucleated RBC % PT 13.2 INR 1.1 APTT 28.9 Sodium Potassium Chloride Carbon Dioxide Anion Gap BUN Creatinine Estim Creat Clear Calc Est GFR (MDRD) Af Amer Est GFR (MDRD) Non-Af BUN/Creatinine Ratio Glucose Lactic Acid Calcium Magnesium Total Bilirubin AST ALT Alkaline Phosphatase Troponin I 1.950 H* Total Protein Albumin Globulin Albumin/Globulin Ratio Procalcitonin TSH Urine Color Urine Clarity Urine pH Ur Specific [place] Urine Protein Urine Glucose (UA) Urine Ketones Urine Occult Blood Urine Nitrite Urine Bilirubin Urine Urobilinogen Ur Leukocyte Esterase Urine RBC Urine WBC Ur Squamous Epith Cells Urine Bacteria Urine Mucus Random Vancomycin POC Glucose 148 H 07/26/19 07/26/19 07/26/19 00:40 04:00 04:00 WBC 5.7 RBC 2.81 L Hgb 8.6 L Hct 27.2 L MCV 96.8 H MCH 30.6 MCHC 31.6 L RDW Std Deviation 50.6 H RDW Coeff of Delia 14.4 Plt Count 110 L MPV 11.7 Immature Gran % (Auto) Neut % (Auto) Lymph % (Auto) [place] % (Auto) Eos % (Auto) Baso % (Auto) Absolute Neuts (auto) Absolute Lymphs (auto) Nucleated RBC % PT INR APTT Sodium 140 140 Potassium 5.6 H 5.5 H Chloride 102 101 Carbon Dioxide 35.0 H 34.0 H Anion Gap 3 L 5 BUN 59 H 56 H Creatinine 2.16 H 2.11 H Estim Creat Clear Calc 26.37 26.99 Est GFR (MDRD) Af Amer 38 L 39 L Est GFR (MDRD) Non-Af 31 L 32 L BUN/Creatinine Ratio 27.3 H 26.5 H Glucose 106 141 H Lactic Acid Calcium 8.7 8.9 Magnesium 1.6 Total Bilirubin 0.50 AST 25 ALT 27 Alkaline Phosphatase 73 Troponin I Total Protein 5.6 L Albumin 2.7 L Globulin 2.9 Albumin/Globulin Ratio 0.9 Procalcitonin TSH 1.39 Urine Color Urine Clarity Urine pH Ur Specific [place] Urine Protein Urine Glucose (UA) Urine Ketones Urine Occult Blood Urine Nitrite Urine Bilirubin Urine Urobilinogen Ur Leukocyte Esterase Urine RBC Urine WBC Ur Squamous Epith Cells Urine Bacteria Urine Mucus Random Vancomycin POC Glucose 07/26/19 07/26/19 07/26/19 04:00 04:00 04:00 WBC RBC Hgb Hct MCV MCH MCHC RDW Std Deviation RDW Coeff of Delia Plt Count MPV Immature Gran % (Auto) Neut % (Auto) Lymph % (Auto) [place] % (Auto) Eos % (Auto) Baso % (Auto) Absolute Neuts (auto) Absolute Lymphs (auto) Nucleated RBC % PT INR APTT 189.2 H* Sodium Potassium Chloride Carbon Dioxide Anion Gap BUN Creatinine Estim Creat Clear Calc Est GFR (MDRD) Af Amer Est GFR (MDRD) Non-Af BUN/Creatinine Ratio Glucose Lactic Acid 0.9 Calcium Magnesium Total Bilirubin AST ALT Alkaline Phosphatase Troponin I Total Protein Albumin Globulin Albumin/Globulin Ratio Procalcitonin TSH Urine Color Urine Clarity Urine pH Ur Specific [place] Urine Protein Urine Glucose (UA) Urine Ketones Urine Occult Blood Urine Nitrite Urine Bilirubin Urine Urobilinogen Ur Leukocyte Esterase Urine RBC Urine WBC Ur Squamous Epith Cells Urine Bacteria Urine Mucus Random Vancomycin 10.3 POC Glucose 07/26/19 07/26/19 07/26/19 08:05 08:06 11:30 WBC RBC Hgb Hct MCV MCH MCHC RDW Std Deviation RDW Coeff of Delia Plt Count MPV Immature Gran % (Auto) Neut % (Auto) Lymph % (Auto) [place] % (Auto) Eos % (Auto) Baso % (Auto) Absolute Neuts (auto) Absolute Lymphs (auto) Nucleated RBC % PT INR APTT Sodium Potassium Chloride Carbon Dioxide Anion Gap BUN Creatinine Estim Creat Clear Calc Est GFR (MDRD) Af Amer Est GFR (MDRD) Non-Af BUN/Creatinine Ratio Glucose Lactic Acid Calcium Magnesium Total Bilirubin AST ALT Alkaline Phosphatase Troponin I Total Protein Albumin Globulin Albumin/Globulin Ratio Procalcitonin 0.41 H TSH Urine Color Urine Clarity Urine pH Ur Specific [place] Urine Protein Urine Glucose (UA) Urine Ketones Urine Occult Blood Urine Nitrite Urine Bilirubin Urine Urobilinogen Ur Leukocyte Esterase Urine RBC Urine WBC Ur Squamous Epith Cells Urine Bacteria Urine Mucus Random Vancomycin POC Glucose 173 H 232 H 07/26/19 07/26/19 07/26/19 13:25 17:03 19:25 WBC RBC Hgb Hct MCV MCH MCHC RDW Std Deviation RDW Coeff of Delia Plt Count MPV Immature Gran % (Auto) Neut % (Auto) Lymph % (Auto) [place] % (Auto) Eos % (Auto) Baso % (Auto) Absolute Neuts (auto) Absolute Lymphs (auto) Nucleated RBC % PT INR APTT 73.4 H 68.9 H Sodium Potassium Chloride Carbon Dioxide Anion Gap BUN Creatinine Estim Creat Clear Calc Est GFR (MDRD) Af Amer Est GFR (MDRD) Non-Af BUN/Creatinine Ratio Glucose Lactic Acid Calcium Magnesium Total Bilirubin AST ALT Alkaline Phosphatase Troponin I Total Protein Albumin Globulin Albumin/Globulin Ratio Procalcitonin TSH Urine Color Urine Clarity Urine pH Ur Specific [place] Urine Protein Urine Glucose (UA) Urine Ketones Urine Occult Blood Urine Nitrite Urine Bilirubin Urine Urobilinogen Ur Leukocyte Esterase Urine RBC Urine WBC Ur Squamous Epith Cells Urine Bacteria Urine Mucus Random Vancomycin POC Glucose 212 H 07/26/19 07/27/19 07/27/19 21:16 03:15 03:15 WBC 3.8 L RBC 2.50 L Hgb 7.7 L Hct 24.5 L MCV 98.0 H MCH 30.8 MCHC 31.4 L RDW Std Deviation 51.1 H RDW Coeff of Delia 14.4 Plt Count 101 L MPV 11.0 Immature Gran % (Auto) 0.500 Neut % (Auto) 55.2 Lymph % (Auto) 26.6 [place] % (Auto) 8.7 Eos % (Auto) 8.7 H Baso % (Auto) 0.3 Absolute Neuts (auto) 2.1 Absolute Lymphs (auto) 1.01 Nucleated RBC % 0 PT INR APTT Sodium 139 Potassium 4.2 Chloride 101 Carbon Dioxide 32.0 Anion Gap 6 BUN 37 H Creatinine 1.52 H Estim Creat Clear Calc 37.47 Est GFR (MDRD) Af Amer 57 L Est GFR (MDRD) Non-Af 47 L BUN/Creatinine Ratio 24.3 H Glucose 165 H Lactic Acid Calcium 8.3 L Magnesium Total Bilirubin AST ALT Alkaline Phosphatase Troponin I Total Protein Albumin Globulin Albumin/Globulin Ratio Procalcitonin TSH Urine Color Urine Clarity Urine pH Ur Specific [place] Urine Protein Urine Glucose (UA) Urine Ketones Urine Occult Blood Urine Nitrite Urine Bilirubin Urine Urobilinogen Ur Leukocyte Esterase Urine RBC Urine WBC Ur Squamous Epith Cells Urine Bacteria Urine Mucus Random Vancomycin POC Glucose 191 H 07/27/19 03:15 WBC RBC Hgb Hct MCV MCH MCHC RDW Std Deviation RDW Coeff of Delia Plt Count MPV Immature Gran % (Auto) Neut % (Auto) Lymph % (Auto) [place] % (Auto) Eos % (Auto) Baso % (Auto) Absolute Neuts (auto) Absolute Lymphs (auto) Nucleated RBC % PT INR APTT 72.6 H Sodium Potassium Chloride Carbon Dioxide Anion Gap BUN Creatinine Estim Creat Clear Calc Est GFR (MDRD) Af Amer Est GFR (MDRD) Non-Af BUN/Creatinine Ratio Glucose Lactic Acid Calcium Magnesium Total Bilirubin AST ALT Alkaline Phosphatase Troponin I Total Protein Albumin Globulin Albumin/Globulin Ratio Procalcitonin TSH Urine Color Urine Clarity Urine pH Ur Specific [place] Urine Protein Urine Glucose (UA) Urine Ketones Urine Occult Blood Urine Nitrite Urine Bilirubin Urine Urobilinogen Ur Leukocyte Esterase Urine RBC Urine WBC Ur Squamous Epith Cells Urine Bacteria Urine Mucus Random Vancomycin POC Glucose Microbiology 07/25/19 13:55 Urine Catheter - [place] Urine Culture - Preliminary Culture exhibits no growth. Clinical Impression(s) from Imaging Studies Brain CT 07/25/19 12:12 IMPRESSION: Chronic involutional changes of the brain. Electronically Signed: Renan Domínguez, at 13:16 EDT , Service support , Chest X-Ray 07/25/19 12:45 IMPRESSION: Mild residual increased markings at the left lung base. Electronically Signed: Renan Domínguez, at 13:02 EDT , Service support , Chest X-Ray 07/26/19 05:55 IMPRESSION: Minimal basilar subsegmental atelectasis versus scarring. Emphysema. at [id number] Reported and signed by: Farzana Bernard MD Electronically Signed: Farzana Bernard MD at 7:48 EDT Tel , Service support , Medical Necessity - Tobacco Use Smoking Status: Former smoker Assessment/Plan All Active Problems (Last Updated 07/26/19 @ 13:58 by Anneliese Cary) Hypotension (Acute) Anemia (Acute) Non-ST elevated myocardial infarction (non-STEMI) (Acute 07/25/19) Nonrheumatic aortic (valve) stenosis (Acute) History of coronary artery stent placement (Resolved) Acute and chronic respiratory failure (Resolved) Bronchitis (Resolved) RECOMMENDATIONS: 1. Continue vasopressor support to maintain a mean arterial pressure at or above 65 mmHg. 2. Stop continuous supplemental IV fluids. 3. Continue empiric antimicrobials. 4. Transfuse blood products. 5. Continue scheduled bronchodilator therapy. 6. Wean supplemental oxygen as tolerated. 7. Start twice daily Protonix. IMPRESSIONS: 1. Distributive versus cardiogenic shock The patient technically met septic shock criteria based upon his initial presentation, laboratory work-up and vital signs. However, there is no readily identifiable source of infection. He is on a number of antihypertensives in his home environment, raising the possibility for medication related hemodynamic instability. Alternatively, a pulmonary vascular etiology such as PE could also be a consideration. Nevertheless, the patient's creatinine would preclude the ability to obtain a CTA chest at this time. He is currently on a continuous heparin infusion (2/2 NSTEMI), which will be continued. Will plan on continuing empiric antimicrobials for now. Continue vasopressor support to maintain a mean arterial pressure at or above 65 mmHg. 2. Acute kidney injury Improving. Likely prerenal in etiology with possible ATN due to hemodynamic instability. Continue current supportive measures as noted above. Monitor urine output. No current indication for renal replacement therapy. 3. Anemia The patient previously had a hemoglobin around 10 g/dL in mid June 2019. His hemoglobin has slowly trended down over the course of this hospitalization to a lon this morning of 7.7 g/dL. He has been ordered to receive packed red blood cells. Recommend starting twice daily PPI therapy. May need to consider general surgery evaluation as well. 4. Non-ST segment elevation [place] Cardiology is currently following. Echocardiogram was largely unrevealing, with the exception of diastolic dysfunction. 5. History of severe COPD/chronic hypoxemic respiratory failure/recent admission for COVID pneumonia The patient does have known severe COPD and chronic supplemental oxygen dependency. He is on a triple therapy inhaler regimen on an outpatient basis. However, he does appear to be at his baseline from a respiratory perspective. Continue bronchodilator therapy as ordered. 6. Diabetes mellitus/hypertension/peripheral arterial disease/coronary artery disease/neuropathy Complicates care, management, recovery and prognosis. Continue sliding scale insulin coverage. Physical therapy to work with the patient. TIME: 40 minutes of critical care time, independent of procedures, was spent addressing the patient's distributive shock, acute kidney injury, non-ST segment elevation [place], severe COPD, chronic hypoxemic respiratory failure, review of all data and collaboration with the care team. [id number]) [id number] Critical care first hour
[2019-07-27] MEDS: Ipratropium 0.5 MG/2.5 ML SOLUTION INHALATION ×3 (06:44→19:10)
[2019-07-27 06:51] LABS: Bedside Glucose 174 mg/dL (70-110)
--- NOTE | 2019-07-27 07:58 | PCM.PN.HOSP ---
Patient Problems: Active and Suspected Problems (Last Updated 07/26/19 @ 13:58 by Anneliese Cary) Hypotension (Acute) Anemia (Acute) Non-ST elevated myocardial infarction (non-STEMI) (Acute 07/25/19) Nonrheumatic aortic (valve) stenosis (Acute) Reason for Visit: Follow-up for septic shock, non-STEMI. Objective: Patient blood pressure is stable on Levophed drip. On 4 L of oxygen, his baseline. Hemoglobin has dropped to 7.7 g/dL this morning. On IV heparin drip. Vitals/I&O's: Vital Signs Temp Pulse Resp BP Pulse Ox 98.7 F 101 H 20 H 118/54 L 95 07/27/19 06:01 07/27/19 07:44 07/27/19 06:44 07/27/19 06:01 07/27/19 06:44 Oxygen Flow Rate (L/min) 4 Oxygen Delivery Method Nasal Cannula Weight: 167 lb 1.766 oz Body Mass Index (BMI) 23.8 Intake and Output for Last 24 Hours 07/25/19 07/26/19 07/27/19 23:59 23:59 23:59 Intake Total 4567.5 / 4722.67 3339.54 / 3348.94 1161.68 / 1161.68 Output Total 2425 / 2425 4675 / 4675 900 / 900 Balance 2142.5 / 2297.67 -1335.46 / -1326.06 261.68 / 261.68 General: Alert, Oriented x3, Cooperative HEENT: Atraumatic, PERRLA, EOMI, Normocephalic Neck: Supple, No JVD, Negative Carotid Bruits Lungs: Clear to auscultation, No rhonchi, No wheeze, No rales, Diminished - Entry diminished bilaterally Cardiovascular: Regular rate, Regular Rhythm, Normal S1, Normal S2, No murmurs, - - PVCs on cardiac catheterization technologist, sinus rhythm Abdomen: Bowel Sounds Present, Soft, Non Tender, Non-Distended Extremities: No edema, Capillary Refill Less than 3 Seconds, - - Right arm dual-lumen PICC line. No tenderness along the PICC line Skin: No rashes, No breakdown Musculoskeletal: No Tenderness to Palpation of Joints or Extremities Neurological: Cranial nerves II-XII grossly intact Psych/Mental Status: Normal Affect, Appropriate Microbiology Past 72 Hours 07/25/19 13:55 Urine Catheter - Leiva Urine Culture - Preliminary Culture exhibits no growth. Laboratory Results 07/26/19 08:05: Procalcitonin 0.41 H 07/26/19 08:06: POC Glucose 173 H 07/26/19 11:30: POC Glucose 232 H 07/26/19 13:25: APTT 73.4 H 07/26/19 17:03: POC Glucose 212 H 07/26/19 19:25: APTT 68.9 H 07/26/19 21:16: POC Glucose 191 H 07/27/19 03:15: WBC 3.8 L, RBC 2.50 L, Hgb 7.7 L, Hct 24.5 L, MCV 98.0 H, MCH 30.8, MCHC 31.4 L, RDW Std Deviation 51.1 H, RDW Coeff of Delia 14.4, Plt Count 101 L, MPV 11.0, Immature Gran % (Auto) 0.500, Neut % (Auto) 55.2, Lymph % (Auto) 26.6, [place] % (Auto) 8.7, Eos % (Auto) 8.7 H, Baso % (Auto) 0.3, Absolute Neuts (auto) 2.1, Absolute Lymphs (auto) 1.01, Nucleated RBC % 0 07/27/19 03:15: Sodium 139, Potassium 4.2, Chloride 101, Carbon Dioxide 32.0, Anion Gap 6, BUN 37 H, Creatinine 1.52 H, Estim Creat Clear Calc 37.47, Est GFR (MDRD) Af Amer 57 L, Est GFR (MDRD) Non-Af 47 L, BUN/Creatinine Ratio 24.3 H, Glucose 165 H, Calcium 8.3 L 07/27/19 03:15: APTT 72.6 H 07/27/19 06:46: POC Glucose 174 H Current Medications Acetaminophen (Tylenol) 650 mg PO Q6H PRN PRN PRN Reason: Pain Score 1-10/Temp > 100.7 F Al Hydroxide/Mg Hydroxide (Mylanta Ii) 30 ml PO Q6H PRN PRN PRN Reason: Gastric Burning Albuterol Sulfate (Ventolin Aerosols) 2.5 mg INHALATION Q2H PRN PRN PRN Reason: SOB/Wheezing Aspirin (Aspirin, Baby) 81 mg PO DAILY@0800 [facility] Last Admin: 07/26/19 09:36 Dose: 81 mg Documented by: Atorvastatin Calcium (Lipitor) 20 mg PO QHS [facility]IDER Last Admin: 07/26/19 21:12 Dose: 20 mg Documented by: Dextrose (D50w Syringe) 0 gm IV X1 PRN; Protocol PRN Reason: Hypoglycemia Glucagon () 1 mg IM .X1 PRN PRN Reason: Hypoglycemia Heparin Sodium (Porcine) (Heparin Na) 0 unit IV UD PRN; Protocol Sodium Chloride () 250 mls @ 15 mls/hr IV .[id number] PRN PRN Reason: Saline Flush Last Infusion: 07/27/19 07:26 Dose: 0 mls/hr Documented by: Sodium Chloride () 250 mls @ 15 mls/hr IV .[id number] PRN PRN Reason: Additional IVPB Infusion Heparin Sodium/Dextrose () 25,000 units in 250 mls @ 11 mls/hr IV .[id number] [facility]; Protocol Last Titration: 07/27/19 04:49 Dose: 800 units/hr, 8 mls/hr Documented by: Norepinephrine Bitartrate 8 mg (/ Sodium Chloride) 250 mls @ 9.375 mls/hr CONT INF .[id number] [facility]; Protocol Last Titration: 07/27/19 06:01 Dose: 5 mcg/min, 9.4 mls/hr Documented by: Piperacillin Sod/Tazobactam (Sod 3.375 gm/ Sodium Chloride) 50 mls @ 12.5 mls/hr IV Q8H [facility] Last Infusion: 07/27/19 05:06 Dose: Infused Documented by: Pantoprazole Sodium 40 mg/ (Sodium Chloride) 110 mls @ 330 mls/hr IV Q12 [facility] Insulin Human Lispro (Humalog Kwikpen (Bkc)) 0 unit SC TIDAC [facility]; Protocol Last Admin: 07/26/19 17:04 Dose: 2 units Documented by: Ipratropium [place] (Atrovent) 0.5 mg INHALATION Q6HWA.RT [facility] Last Admin: 07/27/19 06:44 Dose: 0.5 mg Documented by: Melatonin (Melatonin) 3 mg PO QHS PRN PRN PRN Reason: Insomnia Ondansetron HCl (Zofran) 4 mg IV Q8H PRN PRN PRN Reason: NAUSEA/VOMITING Senna/Docusate Sodium (Senokot-S, [place]-Colace) 2 tablet PO BID PRN PRN PRN Reason: Constipation Sodium Chloride () 10 - 40 ml IV UD PRN PRN Reason: SALINE FLUSH Last Admin: 07/26/19 17:06 Dose: 20 ml Documented by: Tamsulosin HCl (Flomax) 0.4 mg PO BID [facility] Last Admin: 07/26/19 21:12 Dose: 0.4 mg Documented by: STROKE Vital Signs/Narrative: Vital Signs Temp Pulse Resp BP Pulse Ox 07/27/19 07:44 101 H 07/27/19 06:44 105 H 20 H 95 07/27/19 06:01 98.7 F 92 16 118/54 L 100 07/27/19 05:00 93 15 107/49 L 97 07/27/19 04:00 94 15 109/51 L 99 Medical Necessity - Tobacco Use Smoking Status: Former smoker Assessment/Plan All Active Problems (Last Updated 07/26/19 @ 13:58 by Anneliese Cary) Hypotension (Acute) Anemia (Acute) Non-ST elevated myocardial infarction (non-STEMI) (Acute 07/25/19) Nonrheumatic aortic (valve) stenosis (Acute) History of coronary artery stent placement (Resolved) Acute and chronic respiratory failure (Resolved) Bronchitis (Resolved) This 83-year-old gentleman with history of COPD, chronic hypoxic respiratory failure on 3 to 4 L of oxygen at baseline, recently discharged after COVID-19 pneumonia in June 2018 is admitted with hypotension, shock on vasopressor, worsening shortness of breath and fall and hyperkalemia 1. Shock, possible cardiogenic versus distributive: Patient has been afebrile with no history of fever at home. Chest x-ray individually reviewed and shows no acute infiltrate. Lactic acid is elevated. Blood cultures x2 and urine culture are pending. UA is negative of pyuria or hematuria, LE and nitrite are negative. 6/7: On vasopressor support. Right arm PICC line. Patient is on empiric antibiotics. No fever since admission. Had vancomycin on day of admission. 2. Non-STEMI history of coronary artery status post stents: Troponins are elevated, maximum 1.95. On IV heparin drip, baby aspirin, atorvastatin. Patient is in shock therefore no antihypertensive medication or beta-liyah. EKG shows no ischemic changes. Seen by attendance secretary. 07/26: Echo shows stage I diastolic dysfunction, EF 65%. Moderate aortic stenosis, mean AV gradient 36 mmHg. 3. FER on CKD stage III with hyperkalemia: Patient had hyperkalemia cocktail and was given Kayexalate. Repeat K5.5. Patient has good urine output, about 2.5 L on 07/24. Creatinine is improved from 3.0-2.11. Baseline 1.0-1.3. Monitor intake and output; patient has Leiva catheter 07/26: Urine output 4.6 L last 24 hours. Positive fluid balance about 1 L. Improvement in BUN and creatinine. Electrolytes within normal limit. 4. Severe COPD, chronic hypoxic respiratory failure with recent COVID-19 pneumonia in June 2019: On a scheduled nebulization. Incentive spirometry, Pap baseline 3 to 4 L/min currently on baseline. FEV1 37% in 5. 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 07/26: Glucose level elevated will titrate up insulin dose. 6. Anemia of chronic disease, normocytic normochromic anemia and acute thrombocytopenia possible secondary to acute inflammation: Platelet count is decreased 110 at baseline about 200s. Patient hemoglobin is generally maintained 10 to 12 g%. Most recent 8.6. Monitor CBC 07/26: H&H dropped to 7.7 from 9.3. Monitor CBC. On Protonix twice daily. Transfusion of 2 units of PRBC Other comorbidities include hypertension, peripheral arterial disease, bilateral carotid stenosis, anemia of chronic disease, thrombocytopenia, BPH DVT prophylaxis: SCDs. Heparin drip is discontinued. On Lovenox 40 mg subcu daily from tomorrow a.m. Total time of the visit including total time spent in counseling or coordination of care, (more than 50% of the total time, spent in obtaining medical information from nurses and other ancillary care providers), discussion with consultants, review of labs and imaging is 30 minutes Inpatient E&M: [id number] [facility] L3
[2019-07-27] MEDS: 0.9% Saline Lock 10 ML Syringe IV ×2 (08:00→14:49)
[2019-07-27] MEDS: Tamsulosin HCl 0.4 MG Capsule PO ×2 (08:02→21:12)
[2019-07-27] MEDS: Insulin Lispro 100 UNIT/ML INSULN.PEN SC ×3 (08:02→16:40)
[2019-07-27] MEDS: Aspirin 81 MG TAB.CHEW PO (08:06)
--- NOTE | 2019-07-27 08:33 | PN.CARD_ITS ---
Subjectve: Patient seen and evaluated. Is sleeping at this time. Objective: Vital Signs Temp Pulse Resp BP Pulse Ox 98.7 F 101 H 20 H 118/54 L 95 07/27/19 06:01 07/27/19 07:44 07/27/19 06:44 07/27/19 06:01 07/27/19 06:44 Oxygen Flow Rate (L/min) 4 Oxygen Delivery Method Nasal Cannula Weight: 167 lb 1.766 oz Body Mass Index (BMI) 23.8 Intake and Output for Last 24 Hours 07/25/19 07/26/19 07/27/19 23:59 23:59 23:59 Intake Total 4567.5 / 4722.67 3339.54 / 3348.94 1271.68 / 1271.68 Output Total 2425 / 2425 4675 / 4675 900 / 900 Balance 2142.5 / 2297.67 -1335.46 / -1326.06 371.68 / 371.68 General: Awake, Alert, Oriented x 3 HEENT: PERRL, EOMI, Sclera Non Icteric Neck: Supple, Good ROM, No Lymph Node Enlargement Lungs: Clear to auscultation Cardiovascular: Regular Rhythm, Normal S1, Normal S2, No Rubs, No Gallops Murmur Murmur: Grade 2/6, Early Systolic, LLSB Vascular: No Carotid Bruits, Normal Femoral Pulses, Normal Radial Pulses, Normal Dorsalis Pedal Pulse, Normal Posterior Tibial Pulses Abdomen: Bowel Sounds Present, Soft, Non Tender, No HSM, No Organomegaly Extremities: No Cyanosis, No Clubbing, No edema Musculoskeletal: No Erythema Skin: No Rashes Lymphatic: No Lymph Node Enlargement Neurological: No Focal Motor or Sensory Deficit Psych/Mental Status: Appropriate 07/26/19 13:25: APTT 73.4 H 07/26/19 19:25: APTT 68.9 H 07/27/19 03:15: WBC 3.8 L, RBC 2.50 L, Hgb 7.7 L, Hct 24.5 L, MCV 98.0 H, MCH 30.8, MCHC 31.4 L, Plt Count 101 L, MPV 11.0, Immature Gran % (Auto) 0.500, Neut % (Auto) 55.2, Lymph % (Auto) 26.6, [place] % (Auto) 8.7, Eos % (Auto) 8.7 H, Baso % (Auto) 0.3, Absolute Neuts (auto) 2.1, Nucleated RBC % 0 07/27/19 03:15: Sodium 139, Potassium 4.2, Chloride 101, Carbon Dioxide 32.0, Anion Gap 6, BUN 37 H, Creatinine 1.52 H, Est GFR (MDRD) Af Amer 57 L, Est GFR (MDRD) Non-Af 47 L, BUN/Creatinine Ratio 24.3 H, Glucose 165 H, Calcium 8.3 L 07/27/19 03:15: APTT 72.6 H Rhythm: EKG: ECHO: Stress Test: Cardiac Cath: PCI: CT Surgery: Holter monitor: EPS: PPM: CXR: Chest CT Scan: Medical Necessity - Tobacco Use Smoking Status: Former smoker Assessment/Plan 1. Non-ST elevation myocardial infarction * He presents with hypotension sepsis elevated lactic acid and is noted to have an elevated troponin. He has no EKG changes and no chest pain. My suspicion is that the above is secondary to fixed coronary disease rather than plaque rupture. * An echocardiogram demonstrated overall preserved left ventricular systolic function. * He will continue on the appropriate beta-liyah and risk factor modifying drugs after his blood pressure is better improved. * Will decide on whether he would need a noninvasive test for re-stratification or directly to cardiac catheterization at some point after he has recovered from the above. * 2. Recent COVID-19 * He appears to be still recovering from his recent COVID-19 infection for which he received convalescent plasma. * Will defer to hospitalist and primary care physician regarding the above * 3. Severe anemia * He appears to be rather anemic. At this time I am hesitant to place him on a dual antiplatelet therapeutic agent. We will therefore continue to manage this conservatively. * He will benefit from a few units of packed red blood cell transfusion. Hopefully this would allow us to discontinue the norepinephrine. * Would recommend discontinuing the heparin drip as well and will use Lovenox dose for DVT prophylaxis. 4. Previous coronary artery disease * He does have a history of previous coronary artery disease. From the history it appears that he was stented previously. It is not clear exactly where the stent was placed in his coronary anatomy. At the appropriate time he would require evaluation. He does have significant renal dysfunction and I would be hesitant to perform any invasive therapy which could worsen the above. * He should continue with the supportive care at this particular time. * 5 Aortic valve stenosis * This appears to be moderate and will not make any therapeutic changes at this time. * His ejection fraction was noted to be normal. * Thank you for allowing me to participate in the care of your patient. Please don't hesitate to call if any issues arise.
[2019-07-27 11:50] LABS: Bedside Glucose 216 mg/dL (70-110)
[2019-07-27 16:30] LABS: Bedside Glucose 193 mg/dL (70-110)
[2019-07-27] MEDS: Atorvastatin Calcium 20 MG Tablet PO (21:12)
[2019-07-27 21:25] LABS: Bedside Glucose 223 mg/dL (70-110)
[2019-07-27 21:37] LABS: Hematocrit 30.4 % (40-54); Hemoglobin 9.8 g/dL (13.0-16.5)
[2019-07-28] VITALS (35 sets, daily range): BP systolic 102–141; BP diastolic 41–85; PULSE 88–118; RESP 13–33; TEMP 36.7–37.2; O2SAT 88–99
[2019-07-28 03:45] LABS: Absolute Lymphocyte Count 1.12 X10^3/uL (0.83-4.51); Absolute Neutrophil Count 2.2 X10^3/uL (2.0-7.7); Basophil# 0.03 X10^3/uL; Basophil% 0.7 % (0-1); Eosinophil# 0.36 X10^3/uL; Eosinophils% 8.7 % (0-5); Hematocrit 31.2 % (40-54); Hemoglobin 10.3 g/dL (13.0-16.5); Lymphocyte # 1.12 X10^3/ul (4.0); Lymphocyte % 26.9 % (19-41); Mean Corpuscular Hgb 31.5 pg (27.0-32.0); Mean Corpuscular Volume 95.4 fL (80-94); Monocyte# 0.39 X10^3/uL; Monocyte% 9.4 % (0-10); NRBC Flagged by Analyzer 0 % (0-5); Neutrophil # 2.23 X10^3/uL (2.7-7.7); Neutrophil % 53.6 % (47-70); Platelet Count 104 K/mm3 (150-450); RBC Distribution Width CV 14.6 % (11.6-14.6); RBC Distribution Width SD 50.9 fl (35.1-43.9); Red Blood Count 3.27 M/mm3 (4.6-6.2); White Blood Count 4.2 K/mm3 (4.4-11.0)
[2019-07-28 03:47] LABS: Anion Gap 5 (5-15); BUN 26 mg/dL (7-18); BUN/Creat Ratio 21.5 RATIO (10-20); Calcium,Total 8.5 mg/dL (8.5-10.1); Chloride 101 mmol/L (98-107); Creatinine, Serum 1.21 mg/dL (0.70-1.30); EST Glomerular Filtration Rate 61 mL/min (>60); Est Glom Filt Rate - Afr Amer 74 mL/min (>60); Estimated Creatinine Clearance 47.07 ml/min; Glucose 168 mg/dL (74-106); Magnesium 1.4 mg/dL (1.6-2.6); Potassium 4.1 mmol/L (3.5-5.1); Sodium Level 138 mmol/L (136-145)
[2019-07-28] MEDS: Enoxaparin 40 MG/0.4 ML Syringe SC (05:19)
[2019-07-28 06:31] LABS: Bedside Glucose 168 mg/dL (70-110)
--- NOTE | 2019-07-28 06:35 | PCM.PN.INT ---
Subjective: Patient did okay overnight. No acute issues were reported. Attempts to decrease Levophed have not been successful and patient remains on the drip. Patient is on baseline nasal cannula oxygen. Patient denies any pain or cough. General: Alert, Oriented x3, Cooperative, No apparent distress, - - Appears stated age. No conversational dyspnea. HEENT: Atraumatic, PERRLA, EOMI, Normocephalic, - - No scleral icterus or injection noted. Alopecia noted. Oral: Moist Mucosa, No Gingival or Mucosal Lesions/ Ulcerations Neck: Supple, No JVD, No Nodes, Trachea Midline Lungs: No rhonchi, No wheeze, No rales, Diminished Cardiovascular: Regular rate, Regular Rhythm, Normal S1, Normal S2, Murmur - Grade 2 out of 6 systolic ejection murmur at the right sternal border, No rub noted, No Gallop Abdomen: Bowel Sounds Present, Soft, Non Tender, Non-Distended Extremities: No clubbing, No cyanosis, No edema, Diminished Peripheral Pulses Skin: No rashes, No breakdown, - - Skin tear noted. Musculoskeletal: No Tenderness to Palpation of Joints or Extremities Lymphatic: No Cervical, Supraclavicular, or Inguinal Adenopathy Neurological: Cranial nerves II-XII grossly intact, Neuro grossly intact, Motor Exam 5/5 strength throughout Psych/Mental Status: Alert and oriented to time, place, person, mood and affect Vital Signs Temp Pulse Resp BP Pulse Ox 37.1 C 93 18 102/49 L 98 07/28/19 04:00 07/28/19 06:00 07/28/19 06:00 07/28/19 06:00 07/28/19 06:00 Oxygen Flow Rate (L/min) 4 Oxygen Delivery Method Nasal Cannula Weight: 75.6 kg Body Mass Index (BMI) 23.8 Intake and Output for Last 24 Hours 07/26/19 07/27/19 07/28/19 23:59 23:59 23:59 Intake Total 3339.54 / 3348.94 3273.90 / 3281.40 171.25 / 171.25 Output Total 4675 / 4675 2975 / 2975 650 / 650 Balance -1335.46 / -1326.06 298.90 / 306.40 -478.75 / -478.75 Labs (Last 48 Hours) 07/26/19 07/26/19 07/26/19 08:05 08:06 11:30 WBC RBC Hgb Hct MCV MCH MCHC RDW Std Deviation RDW Coeff of Delia Plt Count MPV Immature Gran % (Auto) Neut % (Auto) Lymph % (Auto) [place] % (Auto) Eos % (Auto) Baso % (Auto) Absolute Neuts (auto) Absolute Lymphs (auto) Nucleated RBC % APTT Sodium Potassium Chloride Carbon Dioxide Anion Gap BUN Creatinine Estim Creat Clear Calc Est GFR (MDRD) Af Amer Est GFR (MDRD) Non-Af BUN/Creatinine Ratio Glucose Calcium Magnesium Procalcitonin 0.41 H Cortisol POC Glucose 173 H 232 H Blood Type Antibody Screen Crossmatch 07/26/19 07/26/19 07/26/19 13:25 17:03 19:25 WBC RBC Hgb Hct MCV MCH MCHC RDW Std Deviation RDW Coeff of Delia Plt Count MPV Immature Gran % (Auto) Neut % (Auto) Lymph % (Auto) [place] % (Auto) Eos % (Auto) Baso % (Auto) Absolute Neuts (auto) Absolute Lymphs (auto) Nucleated RBC % APTT 73.4 H 68.9 H Sodium Potassium Chloride Carbon Dioxide Anion Gap BUN Creatinine Estim Creat Clear Calc Est GFR (MDRD) Af Amer Est GFR (MDRD) Non-Af BUN/Creatinine Ratio Glucose Calcium Magnesium Procalcitonin Cortisol POC Glucose 212 H Blood Type Antibody Screen Crossmatch 07/26/19 07/27/19 07/27/19 21:16 03:15 03:15 WBC 3.8 L RBC 2.50 L Hgb 7.7 L Hct 24.5 L MCV 98.0 H MCH 30.8 MCHC 31.4 L RDW Std Deviation 51.1 H RDW Coeff of Delia 14.4 Plt Count 101 L MPV 11.0 Immature Gran % (Auto) 0.500 Neut % (Auto) 55.2 Lymph % (Auto) 26.6 [place] % (Auto) 8.7 Eos % (Auto) 8.7 H Baso % (Auto) 0.3 Absolute Neuts (auto) 2.1 Absolute Lymphs (auto) 1.01 Nucleated RBC % 0 APTT Sodium 139 Potassium 4.2 Chloride 101 Carbon Dioxide 32.0 Anion Gap 6 BUN 37 H Creatinine 1.52 H Estim Creat Clear Calc 37.47 Est GFR (MDRD) Af Amer 57 L Est GFR (MDRD) Non-Af 47 L BUN/Creatinine Ratio 24.3 H Glucose 165 H Calcium 8.3 L Magnesium Procalcitonin Cortisol POC Glucose 191 H Blood Type Antibody Screen Crossmatch 07/27/19 07/27/19 07/27/19 03:15 06:46 08:00 WBC RBC Hgb Hct MCV MCH MCHC RDW Std Deviation RDW Coeff of Delia Plt Count MPV Immature Gran % (Auto) Neut % (Auto) Lymph % (Auto) [place] % (Auto) Eos % (Auto) Baso % (Auto) Absolute Neuts (auto) Absolute Lymphs (auto) Nucleated RBC % APTT 72.6 H Sodium Potassium Chloride Carbon Dioxide Anion Gap BUN Creatinine Estim Creat Clear Calc Est GFR (MDRD) Af Amer Est GFR (MDRD) Non-Af BUN/Creatinine Ratio Glucose Calcium Magnesium Procalcitonin Cortisol POC Glucose 174 H Blood Type O POSITIVE Antibody Screen NEGATIVE Crossmatch See Detail 07/27/19 07/27/19 07/27/19 08:00 11:41 16:25 WBC RBC Hgb Hct MCV MCH MCHC RDW Std Deviation RDW Coeff of Delia Plt Count MPV Immature Gran % (Auto) Neut % (Auto) Lymph % (Auto) [place] % (Auto) Eos % (Auto) Baso % (Auto) Absolute Neuts (auto) Absolute Lymphs (auto) Nucleated RBC % APTT Sodium Potassium Chloride Carbon Dioxide Anion Gap BUN Creatinine Estim Creat Clear Calc Est GFR (MDRD) Af Amer Est GFR (MDRD) Non-Af BUN/Creatinine Ratio Glucose Calcium Magnesium Procalcitonin Cortisol Pending POC Glucose 216 H 193 H Blood Type Antibody Screen Crossmatch 07/27/19 07/27/19 07/28/19 21:11 21:20 03:30 WBC 4.2 L RBC 3.27 L Hgb 9.8 L 10.3 L Hct 30.4 L 31.2 L MCV 95.4 H MCH 31.5 MCHC 33.0 D RDW Std Deviation 50.9 H RDW Coeff of Delia 14.6 Plt Count 104 L MPV 11.0 Immature Gran % (Auto) 0.700 Neut % (Auto) 53.6 Lymph % (Auto) 26.9 [place] % (Auto) 9.4 Eos % (Auto) 8.7 H Baso % (Auto) 0.7 Absolute Neuts (auto) 2.2 Absolute Lymphs (auto) 1.12 Nucleated RBC % 0 APTT Sodium Potassium Chloride Carbon Dioxide Anion Gap BUN Creatinine Estim Creat Clear Calc Est GFR (MDRD) Af Amer Est GFR (MDRD) Non-Af BUN/Creatinine Ratio Glucose Calcium Magnesium Procalcitonin Cortisol POC Glucose 223 H Blood Type Antibody Screen Crossmatch 07/28/19 07/28/19 03:30 06:23 WBC RBC Hgb Hct MCV MCH MCHC RDW Std Deviation RDW Coeff of Delia Plt Count MPV Immature Gran % (Auto) Neut % (Auto) Lymph % (Auto) [place] % (Auto) Eos % (Auto) Baso % (Auto) Absolute Neuts (auto) Absolute Lymphs (auto) Nucleated RBC % APTT Sodium 138 Potassium 4.1 Chloride 101 Carbon Dioxide 32.0 Anion Gap 5 BUN 26 H Creatinine 1.21 Estim Creat Clear Calc 47.07 Est GFR (MDRD) Af Amer 74 Est GFR (MDRD) Non-Af 61 BUN/Creatinine Ratio 21.5 H Glucose 168 H Calcium 8.5 Magnesium 1.4 L Procalcitonin Cortisol POC Glucose 168 H Blood Type Antibody Screen Crossmatch Microbiology 07/25/19 12:05 Blood Culture (Wb) - Anticubital Left Blood Culture - Preliminary No growth in 48 hours. 07/25/19 11:59 Blood Culture (Wb) - Right Forearm Blood Culture - Preliminary No growth in 48 hours. 07/25/19 13:55 Urine Catheter - Leiva Urine Culture - Preliminary Culture exhibits no growth. Medical Necessity - Tobacco Use Smoking Status: Former smoker Assessment/Plan All Active Problems (Last Updated 07/26/19 @ 13:58 by Anneliese Cary) Hypotension (Acute) Anemia (Acute) Non-ST elevated myocardial infarction (non-STEMI) (Acute 07/25/19) Nonrheumatic aortic (valve) stenosis (Acute) History of coronary artery stent placement (Resolved) Acute and chronic respiratory failure (Resolved) Bronchitis (Resolved) RECOMMENDATIONS: 1. Continue vasopressor support to maintain a mean arterial pressure at or above 65 mmHg. 2. Stop continuous supplemental IV fluids. Consider discontinuation of Leiva catheter 3. Continue empiric antimicrobials. 4. No indication for additional blood products at this time 5. Continue scheduled bronchodilator therapy. 6. Wean supplemental oxygen as tolerated. 7. Start twice daily Protonix. IMPRESSIONS: 1. Distributive versus cardiogenic shock Unclear etiology at this time. Patient did have elevated troponins consistent with a non-ST elevation NE. Patient also had some worsening renal dysfunction in the setting of antihypertensive medications. Renal function continues to improve, but pressors are still required. Relative adrenal insufficiency would be a consideration, but will hold for another 24-48 hrs. before initiation of empiric steroid therapy. Patient did have relatively significant aortic stenosis noted on echocardiogram. 2. Acute kidney injury Continues to improve. Likely prerenal in etiology with possible ATN due to hemodynamic instability. Continue current supportive measures as noted above. Monitor urine output. No current indication for renal replacement therapy. Likely okay to discontinue Leiva catheter from my perspective 3. Anemia The patient previously had a hemoglobin around 10 g/dL in mid June 2019. His hemoglobin has slowly trended down over the course of this hospitalization to a lon this morning of 7.7 g/dL. Patient responded well to blood transfusion. Recommend starting twice daily PPI therapy. May need to consider general surgery evaluation as well. 4. Non-ST segment elevation NE Cardiology is currently following. Echocardiogram was largely unrevealing, with the exception of diastolic dysfunction. Cardiology is following 5. History of severe COPD/chronic hypoxemic respiratory failure/recent admission for COVID pneumonia The patient does have known severe COPD and chronic supplemental oxygen dependency. He is on a triple therapy inhaler regimen on an outpatient basis. However, he does appear to be at his baseline from a respiratory perspective. Continue bronchodilator therapy as ordered. 6. Diabetes mellitus/hypertension/peripheral arterial disease/coronary artery disease/neuropathy Complicates care, management, recovery and prognosis. Continue sliding scale insulin coverage. Physical therapy to work with the patient. TIME: 33 minutes of critical care time, independent of procedures, was spent addressing the patient's distributive shock, acute kidney injury, non-ST segment elevation NE, severe COPD, chronic hypoxemic respiratory failure, review of all data and collaboration with the care team. (5:30 AM to 6:30 AM) [id number]: [id number] Critical care first hour
--- NOTE | 2019-07-28 07:45 | PN.CARD_ITS ---
Subjectve: Patient seen and evaluated. Appears to be doing better. Was transfused last night. Blood pressure still remains borderline. Objective: Vital Signs Temp Pulse Resp BP Pulse Ox 98.7 F 93 18 102/49 L 98 07/28/19 04:00 07/28/19 06:00 07/28/19 06:00 07/28/19 06:00 07/28/19 07:40 Oxygen Flow Rate (L/min) 4 Oxygen Delivery Method Nasal Cannula Weight: 166 lb 10.711 oz Body Mass Index (BMI) 23.8 Intake and Output for Last 24 Hours 07/26/19 07/27/19 07/28/19 23:59 23:59 23:59 Intake Total 3339.54 / 3348.94 3273.90 / 3281.40 171.25 / 171.25 Output Total 4675 / 4675 2975 / 2975 650 / 650 Balance -1335.46 / -1326.06 298.90 / 306.40 -478.75 / -478.75 General: Awake, Alert, Oriented x 3 HEENT: PERRL, EOMI, Sclera Non Icteric Neck: Supple, Good ROM, No Lymph Node Enlargement Lungs: Clear to auscultation Cardiovascular: Regular Rhythm, Normal S1, Normal S2, No Rubs, No Gallops Vascular: No Carotid Bruits, Normal Femoral Pulses, Normal Radial Pulses, Normal Dorsalis Pedal Pulse, Normal Posterior Tibial Pulses Abdomen: Bowel Sounds Present, Soft, Non Tender, No HSM, No Organomegaly Extremities: No Cyanosis, No Clubbing, No edema Musculoskeletal: No Erythema Skin: No Rashes Lymphatic: No Lymph Node Enlargement Neurological: No Focal Motor or Sensory Deficit Psych/Mental Status: Appropriate 07/27/19 21:20: Hgb 9.8 L, Hct 30.4 L 07/28/19 03:30: WBC 4.2 L, RBC 3.27 L, Hgb 10.3 L, Hct 31.2 L, MCV 95.4 H, MCH 31.5, MCHC 33.0 D, Plt Count 104 L, MPV 11.0, Immature Gran % (Auto) 0.700, Neut % (Auto) 53.6, Lymph % (Auto) 26.9, [place] % (Auto) 9.4, Eos % (Auto) 8.7 H, Baso % (Auto) 0.7, Absolute Neuts (auto) 2.2, Nucleated RBC % 0 07/28/19 03:30: Sodium 138, Potassium 4.1, Chloride 101, Carbon Dioxide 32.0, Anion Gap 5, BUN 26 H, Creatinine 1.21, Est GFR (MDRD) Af Amer 74, Est GFR (MDRD) Non-Af 61, BUN/Creatinine Ratio 21.5 H, Glucose 168 H, Calcium 8.5, Magnesium 1.4 L Rhythm: EKG: ECHO: Stress Test: Cardiac Cath: PCI: CT Surgery: Holter monitor: EPS: PPM: CXR: Chest CT Scan: Medical Necessity - Tobacco Use Smoking Status: Former smoker Assessment/Plan 1. Non-ST elevation myocardial infarction * He presents with hypotension sepsis elevated lactic acid and is noted to have an elevated troponin. He has no EKG changes and no chest pain. My suspicion is that the above is secondary to fixed coronary disease rather than plaque rupture. * An echocardiogram demonstrated overall preserved left ventricular systolic function. * He will continue on the appropriate beta-liyah and risk factor modifying drugs after his blood pressure is better improved. * Will decide on whether he would need a noninvasive test for re-stratification or directly to cardiac catheterization at some point after he has recovered from the above. * 2. Recent COVID-19 * He appears to be still recovering from his recent COVID-19 infection for which he received convalescent plasma. * Will defer to hospitalist and primary care physician and power screwdriver operator regarding the above * 3. Severe anemia * He presented with significant anemia. He has benefited from 2 units of packed red blood cell transfusion. I will discuss with power screwdriver operator and hospitalist as to whether this person would need a GI evaluation at some point. Also may need to hold off on dual antiplatelet therapy and if his coronaries need to be looked at this will be done possibly before GI evaluation and then he may be brought back for an intervention if need be. * Would recommend discontinuing the heparin drip as well and will use Lovenox dose for DVT prophylaxis. 4. Previous coronary artery disease * He does have a history of previous coronary artery disease. From the history it appears that he was stented previously. It is not clear exactly where the stent was placed in his coronary anatomy. At the appropriate time he would require evaluation. He does have significant renal dysfunction and I would be hesitant to perform any invasive therapy which could worsen the above. * He should continue with the supportive care at this particular time. * 5 Aortic valve stenosis * This appears to be moderate and will not make any therapeutic changes at this time. * His ejection fraction was noted to be normal. * Thank you for allowing me to participate in the care of your patient. Please don't hesitate to call if any issues arise.
[2019-07-28] MEDS: Insulin Lispro 100 UNIT/ML INSULN.PEN SC ×3 (07:50→15:46)
[2019-07-28] MEDS: Tamsulosin HCl 0.4 MG Capsule PO ×2 (07:51→21:43)
[2019-07-28 07:55] LABS: Bedside Glucose 160 mg/dL (70-110)
[2019-07-28] MEDS: Aspirin 81 MG TAB.CHEW PO (07:59)
--- NOTE | 2019-07-28 08:14 | PCM.PN.HOSP ---
Patient Problems: Active and Suspected Problems (Last Updated 07/26/19 @ 13:58 by Anneliese Cary) Hypotension (Acute) Anemia (Acute) Non-ST elevated myocardial infarction (non-STEMI) (Acute 07/25/19) Nonrheumatic aortic (valve) stenosis (Acute) Reason for Visit: Shock on Levophed drip. Follow-up of anemia after 2 units of PRBC transfusion. Non-STEMI Objective: Seen and examined. Patient patient is still on Levophed drip. On 4 L of baseline home oxygen. No tachypnea. Patient had 2 units of PRBC transfusion. Posttransfusion H&H 10.05/19. Physical exam: General: Alert, Oriented x3, Cooperative HEENT: Atraumatic, PERRLA, EOMI, Normocephalic Neck: Supple, No JVD, Negative Carotid Bruits Lungs: Clear to auscultation, No rhonchi, No wheeze, No rales, Diminished - Entry diminished bilaterally Cardiovascular: Regular rate, Regular Rhythm, Normal S1, Normal S2, No murmurs, PVCs on library monitor, sinus rhythm Abdomen: Bowel Sounds Present, Soft, Non Tender, Non-Distended. Midline surgical scar for peripheral vascular disease. Extremities: No edema, Capillary Refill Less than 3 Seconds, Right arm dual-lumen PICC line. No tenderness along the PICC line Skin: No rashes, No breakdown Musculoskeletal: No Tenderness to Palpation of Joints or Extremities Neurological: Cranial nerves II-XII grossly intact Psych/Mental Status: Normal Affect, Appropriate Vitals/I&O's: Vital Signs Temp Pulse Resp BP Pulse Ox 98.7 F 93 18 102/49 L 98 07/28/19 04:00 07/28/19 06:00 07/28/19 06:00 07/28/19 06:00 07/28/19 07:40 Oxygen Flow Rate (L/min) 4 Oxygen Delivery Method Nasal Cannula Weight: 166 lb 10.711 oz Body Mass Index (BMI) 23.8 Intake and Output for Last 24 Hours 07/26/19 07/27/19 07/28/19 23:59 23:59 23:59 Intake Total 3339.54 / 3348.94 3273.90 / 3281.40 171.25 / 171.25 Output Total 4675 / 4675 2975 / 2975 650 / 650 Balance -1335.46 / -1326.06 298.90 / 306.40 -478.75 / -478.75 Microbiology Past 72 Hours 07/25/19 12:05 Blood Culture (Wb) - Anticubital Left Blood Culture - Preliminary No growth in 48 hours. 07/25/19 11:59 Blood Culture (Wb) - Right Forearm Blood Culture - Preliminary No growth in 48 hours. 07/25/19 13:55 Urine Catheter - Leiva Urine Culture - Preliminary Culture exhibits no growth. Laboratory Results 07/27/19 08:00: Blood Type O POSITIVE, Antibody Screen NEGATIVE, Crossmatch See Detail 07/27/19 11:41: POC Glucose 216 H 07/27/19 16:25: POC Glucose 193 H 07/27/19 21:11: POC Glucose 223 H 07/27/19 21:20: Hgb 9.8 L, Hct 30.4 L 07/28/19 03:30: WBC 4.2 L, RBC 3.27 L, Hgb 10.3 L, Hct 31.2 L, MCV 95.4 H, MCH 31.5, MCHC 33.0 D, RDW Std Deviation 50.9 H, RDW Coeff of Delia 14.6, Plt Count 104 L, MPV 11.0, Immature Gran % (Auto) 0.700, Neut % (Auto) 53.6, Lymph % (Auto) 26.9, [place] % (Auto) 9.4, Eos % (Auto) 8.7 H, Baso % (Auto) 0.7, Absolute Neuts (auto) 2.2, Absolute Lymphs (auto) 1.12, Nucleated RBC % 0 07/28/19 03:30: Sodium 138, Potassium 4.1, Chloride 101, Carbon Dioxide 32.0, Anion Gap 5, BUN 26 H, Creatinine 1.21, Estim Creat Clear Calc 47.07, Est GFR (MDRD) Af Amer 74, Est GFR (MDRD) Non-Af 61, BUN/Creatinine Ratio 21.5 H, Glucose 168 H, Calcium 8.5, Magnesium 1.4 L 07/28/19 06:23: POC Glucose 168 H 07/28/19 07:47: POC Glucose 160 H Current Medications Acetaminophen (Tylenol) 650 mg PO Q6H PRN PRN PRN Reason: Pain Score 1-10/Temp > 100.7 F Al Hydroxide/Mg Hydroxide (Mylanta Ii) 30 ml PO Q6H PRN PRN PRN Reason: Gastric Burning Albuterol Sulfate (Ventolin Aerosols) 2.5 mg INHALATION Q2H PRN PRN PRN Reason: SOB/Wheezing Aspirin (Aspirin, Baby) 81 mg PO DAILY@0800 [facility] Last Admin: 07/28/19 07:59 Dose: 81 mg Documented by: Atorvastatin Calcium (Lipitor) 20 mg PO QHS [facility] Last Admin: 07/27/19 21:12 Dose: 20 mg Documented by: Dextrose (D50w Syringe) 0 gm IV X1 PRN; Protocol PRN Reason: Hypoglycemia Enoxaparin Sodium (Lovenox) 40 mg SC DAILY@0600 [facility] Last Admin: 07/28/19 05:19 Dose: 40 mg Documented by: Glucagon () 1 mg IM .X1 PRN PRN Reason: Hypoglycemia Sodium Chloride () 250 mls @ 15 mls/hr IV .[id number] PRN PRN Reason: Saline Flush Last Infusion: 07/28/19 06:12 Dose: 15 mls/hr Documented by: Sodium Chloride () 250 mls @ 15 mls/hr IV .[id number] PRN PRN Reason: Additional IVPB Infusion Norepinephrine Bitartrate 8 mg (/ Sodium Chloride) 250 mls @ 9.375 mls/hr CONT INF .[id number] [facility]; Protocol Last Titration: 07/28/19 06:00 Dose: 4 mcg/min, 7.5 mls/hr Documented by: Piperacillin Sod/Tazobactam (Sod 3.375 gm/ Sodium Chloride) 50 mls @ 12.5 mls/hr IV Q8H [facility] Last Infusion: 07/28/19 06:12 Dose: Infused Documented by: Pantoprazole Sodium 40 mg/ (Sodium Chloride) 110 mls @ 330 mls/hr IV Q12 [facility] Last Admin: 07/28/19 07:59 Dose: 330 mls/hr Documented by: Sodium Chloride () 500 mls @ 15 mls/hr IV PRN PRN PRN Reason: Blood Transfusion Last Infusion: 07/27/19 20:40 Dose: Infused Documented by: Lactated Ringer's () 1,000 mls @ 75 mls/hr IV .[id number] [facility] Insulin Human Lispro (Humalog Kwikpen (Bkc)) 0 unit SC TIDAC [facility]; Protocol Last Admin: 07/28/19 07:50 Dose: 1 units Documented by: Ipratropium [place] (Atrovent) 0.5 mg INHALATION Q6HWA.RT [facility] Last Admin: 07/28/19 07:40 Dose: Not Given Documented by: Melatonin (Melatonin) 3 mg PO QHS PRN PRN PRN Reason: Insomnia Ondansetron HCl (Zofran) 4 mg IV Q8H PRN PRN PRN Reason: NAUSEA/VOMITING Senna/Docusate Sodium (Senokot-S, Jesica-Colace) 2 tablet PO BID PRN PRN PRN Reason: Constipation Sodium Chloride () 10 - 40 ml IV UD PRN PRN Reason: SALINE FLUSH Last Admin: 07/27/19 14:49 Dose: 20 ml Documented by: Tamsulosin HCl (Flomax) 0.4 mg PO BID [facility] Last Admin: 07/28/19 07:51 Dose: 0.4 mg Documented by: STROKE Vital Signs/Narrative: Vital Signs Pulse Resp BP Pulse Ox 07/28/19 07:40 98 07/28/19 06:00 93 18 102/49 L 98 07/28/19 05:05 95 16 119/41 L 98 Medical Necessity - Tobacco Use Smoking Status: Former smoker Assessment/Plan All Active Problems (Last Updated 07/26/19 @ 13:58 by Anneliese Cary) Hypotension (Acute) Anemia (Acute) Non-ST elevated myocardial infarction (non-STEMI) (Acute 07/25/19) Nonrheumatic aortic (valve) stenosis (Acute) History of coronary artery stent placement (Resolved) Acute and chronic respiratory failure (Resolved) Bronchitis (Resolved) This 83-year-old gentleman with history of COPD, chronic hypoxic respiratory failure on 3 to 4 L of oxygen at baseline, recently discharged after COVID-19 pneumonia in June 2018 is admitted with hypotension, shock on vasopressor, worsening shortness of breath and fall and hyperkalemia 1. Shock, possible cardiogenic versus distributive: Patient has been afebrile with no history of fever at home. Chest x-ray individually reviewed and shows no acute infiltrate. Lactic acid is elevated. Blood cultures x2 and urine culture are pending. UA is negative of pyuria or hematuria, LE and nitrite are negative. 07/26: On vasopressor support. Right arm PICC line. Patient is on empiric antibiotics. No fever since admission. Had vancomycin on day of admission. 07/27: Remains on vasopressor. Blood cultures x2- for 48 hours. Urine culture shows no growth. Patient did not had fever since admission. Repeat chest x-ray shows minimal basilar subsegmental atelectasis versus scarring. Emphysema. Can discontinue IV antibiotic 2. Non-STEMI history of coronary artery status post stents: Troponins are elevated, maximum 1.95. On IV heparin drip, baby aspirin, atorvastatin. Patient is in shock therefore no antihypertensive medication or beta-liyah. EKG shows no ischemic changes. Seen by dial lathe operator. 07/26: Echo shows stage I diastolic dysfunction, EF 65%. Moderate aortic stenosis, mean AV gradient 36 mmHg. 3. FER on CKD stage III with hyperkalemia: Patient had hyperkalemia cocktail and was given Kayexalate. Repeat K5.5. Patient has good urine output, about 2.5 L on 07/24. Creatinine is improved from 3.0-2.11. Baseline 1.0-1.3. Monitor intake and output; patient has Leiva catheter 07/26: Urine output 4.6 L last 24 hours. Positive fluid balance about 1 L. Improvement in BUN and creatinine. Electrolytes within normal limit. 07/27: Improvement in BUN/creatinine, creatinine 1.1 on baseline. Good urine output. Positive about 600 mL fluid balance 4. Severe COPD, chronic hypoxic respiratory failure with recent COVID-19 pneumonia in June 2019: On a scheduled nebulization. Incentive spirometry, Pap baseline 3 to 4 L/min currently on baseline. FEV1 37% in 5. 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 07/26: Glucose level elevated will titrate up insulin dose. 7 Lantus intercutaneous daily added. 6. Acute anemia on baseline anemia of chronic disease, most likely from IV heparin/anticoagulant and acute thrombocytopenia possible secondary to acute inflammation: Platelet count is decreased 110 at baseline about 200s. Patient hemoglobin is generally maintained 10 to 12 g%. Most recent 8.6. Monitor CBC 07/26: H&H dropped to 7.7 from 9.3. Monitor CBC. On Protonix twice daily. Transfusion of 2 units of PRBC 07/27: Posttransfusion H&H 10.3. Other comorbidities include hypertension, peripheral arterial disease, bilateral carotid stenosis, anemia of chronic disease, thrombocytopenia, BPH DVT prophylaxis: SCDs. Heparin drip is discontinued. On Lovenox 40 mg subcu daily from tomorrow a.m. Total time of the visit including total time spent in counseling or coordination of care, (more than 50% of the total time, spent in obtaining medical information from nurses and other ancillary care providers), discussion with consultants, review of labs and imaging is 30 minutes Inpatient E&M: [id number] [facility] L[facility]
[2019-07-28] MEDS: Lactated Ringers 1,000 ML 75 ML IV ×2 (08:41→21:46)
[2019-07-28 10:40] LABS: Bedside Glucose 197 mg/dL (70-110)
[2019-07-28] MEDS: Ipratropium 0.5 MG/2.5 ML SOLUTION INHALATION ×2 (13:31→18:37)
[2019-07-28 15:51] LABS: Bedside Glucose 199 mg/dL (70-110)
[2019-07-28] MEDS: Atorvastatin Calcium 20 MG Tablet PO (21:42)
[2019-07-29] VITALS (35 sets, daily range): BP systolic 106–158; BP diastolic 49–85; PULSE 72–122; RESP 12–23; TEMP 36.7–37.2; O2SAT 92–100
[2019-07-29 03:54] LABS: Absolute Lymphocyte Count 1.37 X10^3/uL (0.83-4.51); Basophil# 0.01 X10^3/uL; Basophil% 0.2 % (0-1); Eosinophil# 0.33 X10^3/uL; Eosinophils% 8.2 % (0-5); Hematocrit 30.9 % (40-54); Hemoglobin 9.9 g/dL (13.0-16.5); Lymphocyte # 1.37 X10^3/ul (4.0); Mean Corpuscular Hgb 30.9 pg (27.0-32.0); Mean Corpuscular Volume 96.6 fL (80-94); Mean Platelet Vol. 10.6 fl (6.2-12.0); Monocyte# 0.34 X10^3/uL; Monocyte% 8.4 % (0-10); NRBC Flagged by Analyzer 0 % (0-5); Neutrophil # 1.96 X10^3/uL (2.7-7.7); Neutrophil % 48.7 % (47-70); Platelet Count 124 K/mm3 (150-450); RBC Distribution Width CV 14.5 % (11.6-14.6); RBC Distribution Width SD 50.5 fl (35.1-43.9)
[2019-07-29 03:55] LABS: Anion Gap 5 (5-15); BUN 19 mg/dL (7-18); BUN/Creat Ratio 19.4 RATIO (10-20); Calcium,Total 8.3 mg/dL (8.5-10.1); Chloride 101 mmol/L (98-107); Creatinine, Serum 0.98 mg/dL (0.70-1.30); EST Glomerular Filtration Rate 78 mL/min (>60); Est Glom Filt Rate - Afr Amer 94 mL/min (>60); Estimated Creatinine Clearance 58.12 ml/min; Glucose 144 mg/dL (74-106); Potassium 4.1 mmol/L (3.5-5.1); Sodium Level 137 mmol/L (136-145)
[2019-07-29] MEDS: Enoxaparin 40 MG/0.4 ML Syringe SC (05:25)
--- NOTE | 2019-07-29 06:42 | PN_ITS ---
Subjective: Patient did well overnight. No acute issues were reported. Patient was able to come off of Levophed at approximately 8:30 AM yesterday. Patient did have some increased FiO2 requirements overnight with sleep, but denied any dyspnea. General: Alert, Oriented x3, Cooperative, No apparent distress, - - No conversational dyspnea. Nasal cannula in place. HEENT: Atraumatic, PERRLA, EOMI, Normocephalic, - - No scleral icterus or injection noted Oral: Moist Mucosa, No Gingival or Mucosal Lesions/ Ulcerations Neck: Supple, No Nodes, Trachea Midline, JVD, Right Lungs: No rhonchi, No wheeze, No rales, Diminished, - - Symmetric expansion. Cardiovascular: Regular Rhythm, Normal S1, Normal S2, Murmur, No rub noted, No Gallop, Tachycardic Abdomen: Bowel Sounds Present, Soft, Non Tender, Non-Distended Extremities: No clubbing, No cyanosis, No edema, Capillary Refill Less than 3 Seconds, Peripheral Pulses Normal Skin: No rashes, No breakdown, Skin Tear - Healing well Musculoskeletal: No Tenderness to Palpation of Joints or Extremities Lymphatic: No Cervical, Supraclavicular, or Inguinal Adenopathy Neurological: Cranial nerves II-XII grossly intact, Neuro grossly intact, Motor Exam 5/5 strength throughout Psych/Mental Status: Alert and oriented to time, place, person, mood and affect Vital Signs Temp Pulse Resp BP Pulse Ox 36.8 C 108 H 16 120/52 L 98 07/29/19 04:00 07/29/19 06:00 07/29/19 06:00 07/29/19 06:00 07/29/19 06:00 Oxygen Flow Rate (L/min) 4 Oxygen Delivery Method Nasal Cannula Weight: 76.5 kg Body Mass Index (BMI) 23.8 Intake and Output for Last 24 Hours 07/27/19 07/28/19 07/29/19 23:59 23:59 23:59 Intake Total 3273.90 / 3281.40 1664.83 / 1811.08 551.25 / 551.25 Output Total 2975 / 2975 1925 / 1925 325 / 325 Balance 298.90 / 306.40 -260.17 / -113.92 226.25 / 226.25 Labs (Last 48 Hours) 07/27/19 07/27/19 07/27/19 06:46 08:00 08:00 WBC RBC Hgb Hct MCV MCH MCHC RDW Std Deviation RDW Coeff of Delia Plt Count MPV Immature Gran % (Auto) Neut % (Auto) Lymph % (Auto) [place] % (Auto) Eos % (Auto) Baso % (Auto) Absolute Neuts (auto) Absolute Lymphs (auto) Nucleated RBC % Sodium Potassium Chloride Carbon Dioxide Anion Gap BUN Creatinine Estim Creat Clear Calc Est GFR (MDRD) Af Amer Est GFR (MDRD) Non-Af BUN/Creatinine Ratio Glucose Calcium Magnesium Cortisol 14.00 POC Glucose 174 H Blood Type O POSITIVE Antibody Screen NEGATIVE Crossmatch See Detail 07/27/19 07/27/19 07/27/19 11:41 16:25 21:11 WBC RBC Hgb Hct MCV MCH MCHC RDW Std Deviation RDW Coeff of Delia Plt Count MPV Immature Gran % (Auto) Neut % (Auto) Lymph % (Auto) [place] % (Auto) Eos % (Auto) Baso % (Auto) Absolute Neuts (auto) Absolute Lymphs (auto) Nucleated RBC % Sodium Potassium Chloride Carbon Dioxide Anion Gap BUN Creatinine Estim Creat Clear Calc Est GFR (MDRD) Af Amer Est GFR (MDRD) Non-Af BUN/Creatinine Ratio Glucose Calcium Magnesium Cortisol POC Glucose 216 H 193 H 223 H Blood Type Antibody Screen Crossmatch 07/27/19 07/28/19 07/28/19 21:20 03:30 03:30 WBC 4.2 L RBC 3.27 L Hgb 9.8 L 10.3 L Hct 30.4 L 31.2 L MCV 95.4 H MCH 31.5 MCHC 33.0 D RDW Std Deviation 50.9 H RDW Coeff of Delia 14.6 Plt Count 104 L MPV 11.0 Immature Gran % (Auto) 0.700 Neut % (Auto) 53.6 Lymph % (Auto) 26.9 [place] % (Auto) 9.4 Eos % (Auto) 8.7 H Baso % (Auto) 0.7 Absolute Neuts (auto) 2.2 Absolute Lymphs (auto) 1.12 Nucleated RBC % 0 Sodium 138 Potassium 4.1 Chloride 101 Carbon Dioxide 32.0 Anion Gap 5 BUN 26 H Creatinine 1.21 Estim Creat Clear Calc 47.07 Est GFR (MDRD) Af Amer 74 Est GFR (MDRD) Non-Af 61 BUN/Creatinine Ratio 21.5 H Glucose 168 H Calcium 8.5 Magnesium 1.4 L Cortisol POC Glucose Blood Type Antibody Screen Crossmatch 07/28/19 07/28/19 07/28/19 06:23 07:47 10:30 WBC RBC Hgb Hct MCV MCH MCHC RDW Std Deviation RDW Coeff of Delia Plt Count MPV Immature Gran % (Auto) Neut % (Auto) Lymph % (Auto) [place] % (Auto) Eos % (Auto) Baso % (Auto) Absolute Neuts (auto) Absolute Lymphs (auto) Nucleated RBC % Sodium Potassium Chloride Carbon Dioxide Anion Gap BUN Creatinine Estim Creat Clear Calc Est GFR (MDRD) Af Amer Est GFR (MDRD) Non-Af BUN/Creatinine Ratio Glucose Calcium Magnesium Cortisol POC Glucose 168 H 160 H 197 H Blood Type Antibody Screen Crossmatch 07/28/19 07/29/19 07/29/19 15:45 03:15 03:15 WBC 4.0 L RBC 3.20 L Hgb 9.9 L Hct 30.9 L MCV 96.6 H MCH 30.9 MCHC 32.0 RDW Std Deviation 50.5 H RDW Coeff of Delia 14.5 Plt Count 124 L MPV 10.6 Immature Gran % (Auto) 0.500 Neut % (Auto) 48.7 Lymph % (Auto) 34.0 [place] % (Auto) 8.4 Eos % (Auto) 8.2 H Baso % (Auto) 0.2 Absolute Neuts (auto) 2.0 Absolute Lymphs (auto) 1.37 Nucleated RBC % 0 Sodium 137 Potassium 4.1 Chloride 101 Carbon Dioxide 31.0 Anion Gap 5 BUN 19 H Creatinine 0.98 Estim Creat Clear Calc 58.12 Est GFR (MDRD) Af Amer 94 Est GFR (MDRD) Non-Af 78 BUN/Creatinine Ratio 19.4 Glucose 144 H Calcium 8.3 L Magnesium Cortisol POC Glucose 199 H Blood Type Antibody Screen Crossmatch Microbiology 07/25/19 13:55 Urine Catheter - Leiva Urine Culture - Final Culture exhibits no growth. 07/25/19 12:05 Blood Culture (Wb) - Anticubital Left Blood Culture - Preliminary No growth in 48 hours. 07/25/19 11:59 Blood Culture (Wb) - Right Forearm Blood Culture - Preliminary No growth in 48 hours. Medical Necessity - Tobacco Use Smoking Status: Former smoker Assessment/Plan All Active Problems (Last Updated 07/26/19 @ 13:58 by Anneliese Cary) Hypotension (Acute) Anemia (Acute) Non-ST elevated myocardial infarction (non-STEMI) (Acute 07/25/19) Nonrheumatic aortic (valve) stenosis (Acute) History of coronary artery stent placement (Resolved) Acute and chronic respiratory failure (Resolved) Bronchitis (Resolved) RECOMMENDATIONS: 1. Await timing from cardiology for heart catheterization 2. Okay to stop IV fluids from my perspective. Reinitiate blood pressure medications in a stepwise fashion. 3. Wean oxygen as tolerated 4. No indication for additional blood products at this time 5. Continue scheduled bronchodilator therapy. 6. Hemodynamically stable to leave the intensive care unit from my perspective 7. Continue twice daily Protonix. IMPRESSIONS: 1. Distributive versus cardiogenic shock Unclear etiology at this time. Patient did have elevated troponins consistent with a non-ST elevation CO. Patient also had some worsening renal dysfunction in the setting of antihypertensive medications. Renal function has normalized and blood pressure has improved significantly. Relative adrenal insufficiency would be a consideration but blood pressures have responded appropriately with improvement in renal function. Patient did have relatively significant aortic stenosis noted on echocardiogram. Defer to cardiology on timing for heart catheterization 2. Acute kidney injury Resolved. Likely prerenal in etiology with possible ATN due to hemodynamic instability. Continue current supportive measures as noted above. Monitor urine output. No current indication for renal replacement therapy. Likely okay to reinitiate blood pressure medications in a stepwise fashion. Defer to cardiology given patient's aortic stenosis for priority 3. Anemia The patient previously had a hemoglobin around 10 g/dL in mid June 2019. His hemoglobin has slowly trended down over the course of this hospitalization to a lon this morning of 7.7 g/dL. Patient responded well to blood transfusion. Recommend continuing twice daily PPI therapy. May need to consider general surgery evaluation as well. 4. Non-ST segment elevation CO Cardiology is currently following. Echocardiogram was largely unrevealing, with the exception of diastolic dysfunction and aortic stenosis. 5. History of severe COPD/chronic hypoxemic respiratory failure/recent admission for COVID pneumonia The patient does have known severe COPD and chronic supplemental oxygen dependency. He is on a triple therapy inhaler regimen on an outpatient basis. However, he does appear to be at his baseline from a respiratory perspective. Continue bronchodilator therapy as ordered. 6. Diabetes mellitus/hypertension/peripheral arterial disease/coronary artery disease/neuropathy Complicates care, management, recovery and prognosis. Continue sliding scale insulin coverage. Physical therapy to work with the patient. Inpatient E&M: [id number] [facility] L3
[2019-07-29] MEDS: Ipratropium 0.5 MG/2.5 ML SOLUTION INHALATION ×2 (06:52→19:45)
[2019-07-29] MEDS: 0.9% Normal Saline 1,000 ML 15 ML IV (07:51)
[2019-07-29] MEDS: Aspirin 81 MG TAB.CHEW PO (07:53)
--- NOTE | 2019-07-29 08:04 | PN_ITS ---
Patient Problems: Active and Suspected Problems (Last Updated 07/26/19 @ 13:58 by Anneliese Cary) Hypotension (Acute) Anemia (Acute) Non-ST elevated myocardial infarction (non-STEMI) (Acute 07/25/19) Nonrheumatic aortic (valve) stenosis (Acute) Reason for Visit: Follow-up shock, non-STEMI, anemia Objective: Seen and examined Patient is of vasopressor, Levophed drip since 8:30 AM yesterday. Patient is maintaining blood pressure 128/62, heart rate in low 100s. Pulse ox 92% and 3 L of oxygen. No shortness of breath. No fever for about 24 hours of antibiotics. Patient is going for heart cath On physical exam General: Alert, Oriented x3, Cooperative HEENT: Atraumatic, PERRLA, EOMI, Normocephalic Neck: Supple, No JVD, Negative Carotid Bruits Lungs: Clear to auscultation, No rhonchi, No wheeze, No rales, air entry diminished bilaterally, on 3 L of oxygen through nasal cannula Cardiovascular: Regular rate, Regular Rhythm, Normal S1, Normal S2, No murmurs, PVCs on security monitor, sinus rhythm Abdomen: Bowel Sounds Present, Soft, Non Tender, Non-Distended. Midline surgical scar for peripheral vascular disease. Extremities: No edema, Capillary Refill Less than 3 Seconds, Right arm dual- lumen PICC line. No tenderness along the PICC line Skin: No rashes, No breakdown Musculoskeletal: No Tenderness to Palpation of Joints or Extremities Neurological: Cranial nerves II-XII grossly intact Psych/Mental Status: Normal Affect, Appropriate Vitals/I&O's: Vital Signs Temp Pulse Resp BP Pulse Ox 98.1 F 113 H 17 128/62 H 92 07/29/19 08:00 07/29/19 08:00 07/29/19 08:00 07/29/19 08:00 07/29/19 08:00 Oxygen Flow Rate (L/min) 3 Oxygen Delivery Method Nasal Cannula Weight: 168 lb 10.458 oz Body Mass Index (BMI) 23.8 Intake and Output for Last 24 Hours 07/27/19 07/28/19 07/29/19 23:59 23:59 23:59 Intake Total 3273.90 / 3281.40 1664.83 / 1811.08 747.50 / 747.50 Output Total 2975 / 2975 1924 / 1924 325 / 325 Balance 298.90 / 306.40 -260.17 / -113.92 422.50 / 422.50 Microbiology Past 72 Hours 07/25/19 13:55 Urine Catheter - Leiva Urine Culture - Final Culture exhibits no growth. 07/25/19 12:05 Blood Culture (Wb) - Anticubital Left Blood Culture - Preliminary No growth in 48 hours. 07/25/19 11:59 Blood Culture (Wb) - Right Forearm Blood Culture - Preliminary No growth in 48 hours. Laboratory Results 07/27/19 08:00: Cortisol 14.00 07/28/19 10:30: POC Glucose 197 H 07/28/19 15:45: POC Glucose 199 H 07/29/19 03:15: WBC 4.0 L, RBC 3.20 L, Hgb 9.9 L, Hct 30.9 L, MCV 96.6 H, MCH 30.9, MCHC 32.0, RDW Std Deviation 50.5 H, RDW Coeff of Delia 14.5, Plt Count 124 L, MPV 10.6, Immature Gran % (Auto) 0.500, Neut % (Auto) 48.7, Lymph % (Auto) 34.0, [place] % (Auto) 8.4, Eos % (Auto) 8.2 H, Baso % (Auto) 0.2, Absolute Neuts (auto) 2.0, Absolute Lymphs (auto) 1.37, Nucleated RBC % 0 07/29/19 03:15: Sodium 137, Potassium 4.1, Chloride 101, Carbon Dioxide 31.0, Anion Gap 5, BUN 19 H, Creatinine 0.98, Estim Creat Clear Calc 58.12, Est GFR (MDRD) Af Amer 94, Est GFR (MDRD) Non-Af 78, BUN/Creatinine Ratio 19.4, Glucose 144 H, Calcium 8.3 L Current Medications Acetaminophen (Tylenol) 650 mg PO Q6H PRN PRN PRN Reason: Pain Score 1-10/Temp > 100.7 F Al Hydroxide/Mg Hydroxide (Mylanta Ii) 30 ml PO Q6H PRN PRN PRN Reason: Gastric Burning Albuterol Sulfate (Ventolin Aerosols) 2.5 mg INHALATION Q2H PRN PRN PRN Reason: SOB/Wheezing Aspirin (Aspirin, Baby) 81 mg PO DAILY@0800 [facility] Last Admin: 07/29/19 07:53 Dose: 81 mg Documented by: Atorvastatin Calcium (Lipitor) 20 mg PO QHS [facility] Last Admin: 07/28/19 21:42 Dose: 20 mg Documented by: Dextrose (D50w Syringe) 0 gm IV X1 PRN; Protocol PRN Reason: Hypoglycemia Enoxaparin Sodium (Lovenox) 40 mg SC DAILY@0600 [facility] Last Admin: 07/29/19 05:25 Dose: 40 mg Documented by: Glucagon () 1 mg IM .X1 PRN PRN Reason: Hypoglycemia Sodium Chloride () 250 mls @ 15 mls/hr IV .[id number] PRN PRN Reason: Saline Flush Last Infusion: 07/28/19 16:47 Dose: Infused Documented by: Sodium Chloride () 250 mls @ 15 mls/hr IV .[id number] PRN PRN Reason: Additional IVPB Infusion Norepinephrine Bitartrate 8 mg (/ Sodium Chloride) 250 mls @ 9.375 mls/hr CONT INF .[id number] [facility]; Protocol Last Admin: 07/29/19 07:37 Dose: Not Given Documented by: Pantoprazole Sodium 40 mg/ (Sodium Chloride) 110 mls @ 330 mls/hr IV Q12 [facility] Last Infusion: 07/28/19 22:03 Dose: Infused Documented by: Sodium Chloride () 500 mls @ 15 mls/hr IV PRN PRN PRN Reason: Blood Transfusion Last Infusion: 07/27/19 20:40 Dose: Infused Documented by: Lactated Ringer's () 1,000 mls @ 75 mls/hr IV .[id number] [facility] Last Infusion: 07/29/19 08:01 Dose: Infused Documented by: Sodium Chloride () 1,000 mls @ 15 mls/hr IV .Q48H [facility] Last Admin: 07/29/19 07:51 Dose: 15 mls/hr Documented by: Insulin Glargine (Lantus (Bk)) 8 units SC DAILY [facility] Last Admin: 07/28/19 10:31 Dose: 8 unit Documented by: Insulin Human Lispro (Humalog Kwikpen ([place])) 0 unit SC TIDAC [facility]; Protocol Last Admin: 07/29/19 07:33 Dose: Not Given Documented by: Ipratropium [place] (Atrovent) 0.5 mg INHALATION Q6HWA.RT [facility] Last Admin: 07/29/19 06:52 Dose: 0.5 mg Documented by: Melatonin (Melatonin) 3 mg PO QHS PRN PRN PRN Reason: Insomnia Ondansetron HCl (Zofran) 4 mg IV Q8H PRN PRN PRN Reason: NAUSEA/VOMITING Senna/Docusate Sodium (Senokot-S, Jes[place]-Colace) 2 tablet PO BID PRN PRN PRN Reason: Constipation Sodium Chloride () 10 - 40 ml IV UD PRN PRN Reason: SALINE FLUSH Last Admin: 07/27/19 14:49 Dose: 20 ml Documented by: Tamsulosin HCl (Flomax) 0.4 mg PO BID [facility] Last Admin: 07/28/19 21:43 Dose: 0.4 mg Documented by: STROKE Vital Signs/Narrative: Vital Signs Temp Pulse Resp BP Pulse Ox 07/29/19 08:00 98.1 F 113 H 17 128/62 H 92 07/29/19 07:00 106 H 23 H 119/57 L 92 07/29/19 06:53 103 H 18 96 07/29/19 06:00 108 H 16 120/52 L 98 07/29/19 05:00 96 15 138/61 H 98 Medical Necessity - Tobacco Use Smoking Status: Former smoker Assessment/Plan All Active Problems (Last Updated 07/26/19 @ 13:58 by Anneliese Cary) Hypotension (Acute) Anemia (Acute) Non-ST elevated myocardial infarction (non-STEMI) (Acute 07/25/19) Nonrheumatic aortic (valve) stenosis (Acute) History of coronary artery stent placement (Resolved) Acute and chronic respiratory failure (Resolved) Bronchitis (Resolved) This 83-year-old gentleman with history of COPD, chronic hypoxic respiratory failure on 3 to 4 L of oxygen at baseline, recently discharged after COVID-19 pneumonia in June 2018 is admitted with hypotension, shock on va sopressor, worsening shortness of breath and fall and hyperkalemia 1. Shock, possible cardiogenic versus distributive: Patient has been afebrile with no history of fever at home. Chest x-ray individually reviewed and shows no acute infiltrate. Lactic acid is elevated. Blood cultures x2 and urine culture are pending. UA is negative of pyuria or hematuria, LE and nitrite are negative. 07/26: On vasopressor support. Right arm PICC line. Patient is on empiric antibiotics. No fever since admission. Had vancomycin on day of admission. 07/27: Remains on vasopressor. Blood cultures x2- for 48 hours. Urine culture shows no growth. Patient did not had fever since admission. Repeat chest x-ray shows minimal basilar subsegmental atelectasis versus scarring. Emphysema. Can discontinue IV antibiotic 07/28: Vasopressor was discontinued on 07/27. No fever off antibiotic. 2. Non-STEMI history of coronary artery status post stents: Troponins are elevated, maximum 1.95. On IV heparin drip, baby aspirin, atorvastatin. Patient is in shock therefore no antihypertensive medication or beta-liyah. EKG shows no ischemic changes. Seen by facility mechanic. 07/26: Echo shows stage I diastolic dysfunction, EF 65%. Moderate aortic stenosis, mean AV gradient 36 mmHg. 07/27: Discussed with facility mechanic. Left heart catheter today. 3. FER on CKD stage III with hyperkalemia: Patient had hyperkalemia cocktail and was given Kayexalate. Repeat K5.5. Patient has good urine output, about 2.5 L on 07/24. Creatinine is improved from 3.0-2.11. Baseline 1.0-1.3. Monitor intake and output; patient has Leiva catheter 07/26: Urine output 4.6 L last 24 hours. Positive fluid balance about 1 L. Improvement in BUN and creatinine. Electrolytes within normal limit. 07/27: Improvement in BUN/creatinine, creatinine 1.1 on baseline. Good urine output. Positive about 600 mL fluid balance 07/28: Kidney function on baseline. 4. Severe COPD, chronic hypoxic respiratory failure with recent COVID-19 pneumonia in June 2019: On a scheduled nebulization. Incentive spirometry, Pap baseline 3 to 4 L/min currently on baseline. FEV1 37% in 5. 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 07/26: Glucose level elevated will titrate up insulin dose. 07/27: Blood sugars have improved. 6. Acute anemia on baseline anemia of chronic disease, most likely from IV heparin/anticoagulant and acute thrombocytopenia possible secondary to acute inflammation: Platelet count is decreased 110 at baseline about 200s. Patient hemoglobin is generally maintained 10 to 12 g%. Most recent 8.6. Monitor CBC 07/26: H&H dropped to 7.7 from 9.3. Monitor CBC. On Protonix twice daily. Transfusion of 2 units of PRBC 07/27: Posttransfusion H&H 10.3. 07/28: May need general surgery evaluation as an outpatient if no further drop in H&H. Other comorbidities include hypertension, peripheral arterial disease, bilateral carotid stenosis, anemia of chronic disease, thrombocytopenia, BPH DVT prophylaxis: SCDs. Heparin drip is discontinued. On Lovenox 40 mg subcu daily from tomorrow a.m. Total time of the visit including total time spent in counseling or coordination of care, (more than 50% of the total time, spent in obtaining medical information from nurses and other ancillary care providers), discussion with consultants, review of labs and imaging is 30 minutes Inpatient E&M: [id number] [facility] L3
--- NOTE | 2019-07-29 08:46 | PN.CARD_ITS ---
Subjectve: Patient seen and evaluated. Appears to be stable today. Objective: Vital Signs Temp Pulse Resp BP Pulse Ox 98.1 F 113 H 17 128/62 H 92 07/29/19 08:00 07/29/19 08:00 07/29/19 08:00 07/29/19 08:00 07/29/19 08:00 Oxygen Flow Rate (L/min) 3 Oxygen Delivery Method Nasal Cannula Weight: 168 lb 10.458 oz Body Mass Index (BMI) 23.8 Intake and Output for Last 24 Hours 07/27/19 07/28/19 07/29/19 23:59 23:59 23:59 Intake Total 3273.90 / 3281.40 1664.83 / 1811.08 747.50 / 747.50 Output Total 2975 / 2975 1925 / 1925 325 / 325 Balance 298.90 / 306.40 -260.17 / -113.92 422.50 / 422.50 General: Awake, Alert, Oriented x 3 HEENT: PERRL, EOMI, Sclera Non Icteric Neck: Supple, Good ROM, No Lymph Node Enlargement Lungs: Clear to auscultation Cardiovascular: Regular Rhythm, Normal S1, Normal S2, No Murmurs, No Rubs, No Gallops Vascular: No Carotid Bruits, Normal Femoral Pulses, Normal Radial Pulses, Normal Dorsalis Pedal Pulse, Normal Posterior Tibial Pulses Abdomen: Bowel Sounds Present, Soft, Non Tender, No HSM, No Organomegaly Extremities: No Cyanosis, No Clubbing, No edema Musculoskeletal: No Erythema Skin: No Rashes Lymphatic: No Lymph Node Enlargement Neurological: No Focal Motor or Sensory Deficit Psych/Mental Status: Appropriate 07/29/19 03:15: WBC 4.0 L, RBC 3.20 L, Hgb 9.9 L, Hct 30.9 L, MCV 96.6 H, MCH 30.9, MCHC 32.0, Plt Count 124 L, MPV 10.6, Immature Gran % (Auto) 0.500, Neut % (Auto) 48.7, Lymph % (Auto) 34.0, [place] % (Auto) 8.4, Eos % (Auto) 8.2 H, Baso % (Auto) 0.2, Absolute Neuts (auto) 2.0, Nucleated RBC % 0 07/29/19 03:15: Sodium 137, Potassium 4.1, Chloride 101, Carbon Dioxide 31.0, Anion Gap 5, BUN 19 H, Creatinine 0.98, Est GFR (MDRD) Af Amer 94, Est GFR (MDRD) Non-Af 78, BUN/Creatinine Ratio 19.4, Glucose 144 H, Calcium 8.3 L Rhythm: EKG: ECHO: Stress Test: Cardiac Cath: PCI: CT Surgery: Holter monitor: EPS: PPM: CXR: Chest CT Scan: Medical Necessity - Tobacco Use Smoking Status: Former smoker Assessment/Plan 1. Non-ST elevation myocardial infarction * He presents with hypotension sepsis elevated lactic acid and is noted to have an elevated troponin. He has no EKG changes and no chest pain. My suspicion is that the above is secondary to fixed coronary disease rather than plaque rupture. * An echocardiogram demonstrated overall preserved left ventricular systolic function. * He will continue on the appropriate beta-liyah and risk factor modifying drugs. * He underwent a cardiac catheterization with demonstrated the following: Mildly calcified left main coronary artery with no significant stenosis. Left anterior descending artery with previously placed stent which is patent with diffuse mild disease. Dominant circumflex artery with diffuse disease with no high-grade stenosis. Nondominant right coronary artery with proximal 80% stenosis. Based on the above angiographic findings the patient will be treated with medical therapy. * 2. Recent COVID-19 * He appears to be still recovering from his recent COVID-19 infection for which he received convalescent plasma. * Will defer to hospitalist and primary care physician and staffing administrator regarding the above * 3. Severe anemia * He presented with significant anemia. He has benefited from 2 units of packed red blood cell transfusion. I will discuss with staffing administrator and hospitalist as to whether this person would need a GI evaluation at some point. * At this time he does not need any coronary intervention and he can be seen by GI or surgery to have a colonoscopy at some point. 4. Previous coronary artery disease * He does have a history of previous coronary artery disease. From the history it appears that he was stented previously. His anatomy is as discussed above. * He should continue with the supportive care at this particular time. * 5 Aortic valve stenosis * This appears to be moderate and will not make any therapeutic changes at this time. * His ejection fraction was noted to be normal. * My suspicion is that he was dehydrated and became hypotensive and with his aortic valve disease it worsened his perfusion resulting in his non-ST elevation myocardial infarction as well as his renal dysfunction. * Thank you for allowing me to participate in the care of your patient. Please don't hesitate to call if any issues arise. He can be transferred to the progressive care unit
--- NOTE | 2019-07-29 09:04 | CL.D_ITS ---
Patient Name: ELIAS CARBAJAL Study Date: 07/29/2019 Performing: Idris Ye MD Ht: 69 inches 175 cm : 1935 Wt: 170 lbs 77 kg Age: 83 Gender: male BSA: 1.92 PROCEDURE(S) PERFORMED [id number]/COR CLINICAL PROFILE AND INDICATIONS Indications: Suspected CAD Heart Failure: None Stress/Imaging Stress/Image Study Performed: No CONCLUSIONS Moderately severe aortic stenosis. Severe single vessel non dominant RCA stenosis. Previously placed stent in LAD patent with diffuse disease in LCX and LAD RECOMMENDATIONS Medical therapy DESCRIPTION OF PROCEDURE The patient arrived to the procedure lab. The risks and benefits of the procedure as well as a full d escription of our services here and current unavailability of surgical backup were fully explained to the patient and/or their significant other prior to the catheterization. The Timeout was completed, verifying the correct patient and procedure. The patient's procedural site was prepped and draped in the usual fashion. Local anesthetic was given subcutaneously to right radial region with Lidocaine 2% . Using a modified Seldinger technique, arterial access was obtained via the right radial artery, a 6 Fr sheath was inserted. Right Coronary Artery selective angiography was performed in multiple views using a 5 Fr. 4.0 Kent catheter. Left Coronary Artery selective angiography was performed in multipl e views using a 5 Fr. 4.0 Kent catheter.The arterial sheath was pulled and a TR Band was applied for hemostasis CORONARY ANGIOGRAPHY DOMINANCE: Left Dominant LEFT HEART ASSESSMENT Left Ventricular Ejection Fraction: by Echo 60 % Normal LV wall motion Normal Left Ventricular systolic function LEFT MAIN: Mild calcification, Non-obstructive, Moderate calcification LEFT ANTERIOR DESCENDING ARTERY: Mild luminal irregularities less than 30% PROX LAD: Previously placed stent is patent CIRCUMFLEX ARTERY: Moderate luminal irregularities up to 50% RIGHT CORONARY ARTERY: PROX RCA: 90 % Stenosis VALVE FINDINGS: Aortic Valve Calcification - moderate Aortic Valve Stenosis - moderate COMPLICATIONS No Complications PROCEDURE MEDICATIONS Fentanyl 25 mcg IV Oxygen: 4 L/min via nasal cannula Heparin diluted in 23cc Heparinized saline. Patient given 10cc IA of this solution. 07/29/2019 08:30:2 5 Verapamil 2.5mg, Ntg 100mcgs, 2000 units of Heparin diluted in 23cc Heparinized saline. Patient give n 10cc IA of this solution. 07/29/2019 08:30:25 SUMMARY OF HEMODYNAMIC DATA Time AIR REST ECG 08:15:38 AO 113/50 (73) SA 08:35:12 Signed By Idris Ye MD On 07/29/2019 09:07:30 Idris Ye MD
[2019-07-29] MEDS: Lactated Ringers 1,000 ML 75 ML IV ×2 (09:05→23:05)
[2019-07-29] MEDS: Metoprolol Tartrate 25 MG Tablet PO ×2 (09:19→22:34)
[2019-07-29] MEDS: Tamsulosin HCl 0.4 MG Capsule PO ×2 (09:19→22:33)
--- NOTE | 2019-07-29 11:04 | NURSING ---
patient did not want this RN calling family with update
--- NOTE | 2019-07-29 11:19 | CASEMGMT ---
RN CM Note: Call to [facility] @ [place] to notify pt is @ [facility]. If pt returns home, they will resume SN,PT/OT. -reviewed PT evaluation from 07/27. Requested MAJOR Garcia follow todays PT notes as pt may need SNF on dc. Pt is on TCU list. Ciro BLANCHARDN RN ACM
[2019-07-29 11:46] LABS: Magnesium 1.3 mg/dL (1.6-2.6)
[2019-07-29] MEDS: Insulin Lispro 100 UNIT/ML INSULN.PEN SC ×2 (12:06→16:34)
[2019-07-29 12:11] LABS: Bedside Glucose 185 mg/dL (70-110)
[2019-07-29] MEDS: 0.9% Saline Lock 10 ML Syringe IV (13:22)
--- NOTE | 2019-07-29 13:32 | CASEMGMT ---
Addendum entered by Kinjal Humphreys 07/29/19 14:10: MAJOR received call from [facility] in TCU stating pt had COVID in June and she will need two negative tests for TCU for pt. Original Note: Social Work Note PT/OT hasn't worked with pt today yet. MAJOR placed a call to Tomasa in TCU. Tomasa states she does have beds available and will put pt's name on TCU list in the event SNF is needed. MAJOR and RN CM to continue to follow. Plan: TBD pending PT/OT Kinjal Humphreys [employer], [employer]
[2019-07-29] MEDS: Gabapentin 300 MG Capsule PO ×2 (14:13→22:34)
[2019-07-29 16:16] LABS: Bedside Glucose 191 mg/dL (70-110)
[2019-07-29] MEDS: Atorvastatin Calcium 40 MG Tablet PO (22:33)
[2019-07-29] MEDS: Pantoprazole Sodium 40 MG Tablet PO (22:34)
[2019-07-30] VITALS (14 sets, daily range): BP systolic 102–111; BP diastolic 43–55; PULSE 60–99; RESP 16–20; TEMP 36.5–36.8; O2SAT 95–97
[2019-07-30 05:43] LABS: Absolute Lymphocyte Count 0.93 X10^3/uL (0.83-4.51); Basophil# 0.01 X10^3/uL; Basophil% 0.3 % (0-1); Eosinophil# 0.44 X10^3/uL; Eosinophils% 11.5 % (0-5); Hematocrit 31.4 % (40-54); Hemoglobin 9.8 g/dL (13.0-16.5); Lymphocyte # 0.93 X10^3/ul (4.0); Lymphocyte % 24.3 % (19-41); Mean Corp Hgb Conc 31.2 g/dL (32-36); Mean Corpuscular Volume 99.4 fL (80-94); Monocyte# 0.43 X10^3/uL; Monocyte% 11.3 % (0-10); NRBC Flagged by Analyzer 0 % (0-5); Neutrophil # 1.98 X10^3/uL (2.7-7.7); Neutrophil % 51.8 % (47-70); Platelet Count 144 K/mm3 (150-450); RBC Distribution Width CV 14.2 % (11.6-14.6); RBC Distribution Width SD 51.5 fl (35.1-43.9); Red Blood Count 3.16 M/mm3 (4.6-6.2); White Blood Count 3.8 K/mm3 (4.4-11.0)
[2019-07-30 06:16] LABS: Anion Gap 4 (5-15); BUN 17 mg/dL (7-18); BUN/Creat Ratio 18.8 RATIO (10-20); Calcium,Total 8.5 mg/dL (8.5-10.1); Chloride 101 mmol/L (98-107); EST Glomerular Filtration Rate 86 mL/min (>60); Est Glom Filt Rate - Afr Amer 104 mL/min (>60); Estimated Creatinine Clearance 63.28 ml/min; Glucose 190 mg/dL (74-106); Magnesium 1.8 mg/dL (1.6-2.6); Potassium 4.4 mmol/L (3.5-5.1); Sodium Level 137 mmol/L (136-145)
[2019-07-30] MEDS: Gabapentin 300 MG Capsule PO ×3 (06:21→21:52)
[2019-07-30] MEDS: Enoxaparin 40 MG/0.4 ML Syringe SC (06:21)
[2019-07-30] MEDS: Insulin Lispro 100 UNIT/ML INSULN.PEN SC ×3 (06:39→16:19)
[2019-07-30 06:55] LABS: Bedside Glucose 180 mg/dL (70-110)
[2019-07-30] MEDS: Ipratropium 0.5 MG/2.5 ML SOLUTION INHALATION ×2 (07:29→20:07)
[2019-07-30] MEDS: Pioglitazone Hydrochloride 45 MG Tablet PO (08:43)
[2019-07-30] MEDS: Glimepiride 1 MG Tablet PO (08:43)
[2019-07-30] MEDS: Metoprolol Tartrate 25 MG Tablet PO ×2 (08:44→21:52)
[2019-07-30] MEDS: Pantoprazole Sodium 40 MG Tablet PO (08:44)
[2019-07-30] MEDS: amLODIPine 5 MG Tablet PO (08:45)
[2019-07-30] MEDS: Aspirin 81 MG TAB.CHEW PO (08:47)
--- NOTE | 2019-07-30 09:51 | PN_ITS ---
Subjective: Patient did well overnight. No acute issues were reported. Patient feels that he is getting stronger, but has not been walking around too much. No chest pain is reported. Patient believes his breathing is at its baseline. Objective: Cardiac catheterization report was personally reviewed. - Physical Exam Vitals/I&O's: Vital Signs Temp Pulse Resp BP Pulse Ox 36.6 C 72 18 102/48 L 95 07/30/19 08:53 07/30/19 08:53 07/30/19 08:53 07/30/19 08:53 07/30/19 08:53 Oxygen Flow Rate (L/min) 4 Oxygen Delivery Method Nasal Cannula Weight: 77.5 kg Body Mass Index (BMI) 23.8 Intake and Output for Last 24 Hours 07/28/19 07/29/19 07/30/19 23:59 23:59 23:59 Intake Total 1664.83 / 1811.08 2653.22 / 2653.22 Output Total 1925 / 1925 825 / 825 Balance -260.17 / -113.92 1828.22 / 1828.22 General: Alert, Oriented x3, Cooperative, No apparent distress, - - Speaking in full sentences. HEENT: Atraumatic, PERRLA, EOMI, Normocephalic, - - No scleral icterus or injection noted Oral: Moist Mucosa, No Gingival or Mucosal Lesions/ Ulcerations Neck: Supple, No Nodes, Trachea Midline, JVD, Right Lungs: No rhonchi, No wheeze, No rales, Diminished, - - Symmetric expansion Cardiovascular: Regular rate, Regular Rhythm, Normal S1, Normal S2, Murmur, No rub noted, No Gallop Abdomen: Bowel Sounds Present, Soft, Non Tender, Non-Distended Extremities: No clubbing, No cyanosis, No edema, Capillary Refill Less than 3 Seconds Skin: - - No change compared to previous Musculoskeletal: No Tenderness to Palpation of Joints or Extremities Lymphatic: No Cervical, Supraclavicular, or Inguinal Adenopathy Neurological: Cranial nerves II-XII grossly intact, Neuro grossly intact, Motor Exam 5/5 strength throughout Psych/Mental Status: Alert and oriented to time, place, person, mood and affect Microbiology Past 72 Hours 07/25/19 13:55 Urine Catheter - Leiva Urine Culture - Final Culture exhibits no growth. 07/25/19 12:05 Blood Culture (Wb) - Anticubital Left Blood Culture - Preliminary No growth in 48 hours. 07/25/19 11:59 Blood Culture (Wb) - Right Forearm Blood Culture - Preliminary No growth in 48 hours. Laboratory Results 07/29/19 03:15: Magnesium 1.3 L 07/29/19 12:05: POC Glucose 185 H 07/29/19 16:13: POC Glucose 191 H 07/29/19 16:17: COVID-19 (CHARLIE) Pending 07/30/19 05:34: WBC 3.8 L, RBC 3.16 L, Hgb 9.8 L, Hct 31.4 L, MCV 99.4 H, MCH 31.0, MCHC 31.2 L, RDW Std Deviation 51.5 H, RDW Coeff of Delia 14.2, Plt Count 144 L, MPV 10.0, Immature Gran % (Auto) 0.800, Neut % (Auto) 51.8, Lymph % (Auto) 24.3, [place] % (Auto) 11.3 H, Eos % (Auto) 11.5 H, Baso % (Auto) 0.3, Absolute Neuts (auto) 2.0, Absolute Lymphs (auto) 0.93, Nucleated RBC % 0 07/30/19 05:34: Sodium 137, Potassium 4.4, Chloride 101, Carbon Dioxide 32.0, Anion Gap 4 L, BUN 17, Creatinine 0.90, Estim Creat Clear Calc 63.28, Est GFR (MDRD) Af Amer 104, Est GFR (MDRD) Non-Af 86, BUN/Creatinine Ratio 18.8, Glucose 190 H, Calcium 8.5, Magnesium 1.8 07/30/19 06:38: POC Glucose 180 H Current Medications Acetaminophen (Tylenol) 650 mg PO Q6H PRN PRN PRN Reason: Pain Score 1-10/Temp > 100.7 F Al Hydroxide/Mg Hydroxide (Mylanta Ii) 30 ml PO Q6H PRN PRN PRN Reason: Gastric Burning Albuterol Sulfate (Ventolin Aerosols) 2.5 mg INHALATION Q2H PRN PRN PRN Reason: SOB/Wheezing Amlodipine Besylate (Norvasc) 5 mg PO DAILY [facility] Last Admin: 07/30/19 08:45 Dose: 5 mg Documented by: Aspirin (Aspirin, Baby) 81 mg PO DAILY@0800 [facility] Last Admin: 07/30/19 08:47 Dose: 81 mg Documented by: Atorvastatin Calcium (Lipitor) 40 mg PO QHS [facility] Last Admin: 07/29/19 22:33 Dose: 40 mg Documented by: Dextrose (D50w Syringe) 0 gm IV X1 PRN; Protocol PRN Reason: Hypoglycemia Enoxaparin Sodium (Lovenox) 40 mg SC DAILY@0600 [facility] Last Admin: 07/30/19 06:21 Dose: 40 mg Documented by: Gabapentin (Neurontin) 300 mg PO TID [facility] Last Admin: 07/30/19 06:21 Dose: 300 mg Documented by: Glimepiride (Amaryl) 1 mg PO DAILYCM [facility] Last Admin: 07/30/19 08:43 Dose: 1 mg Documented by: Glucagon () 1 mg IM .X1 PRN PRN Reason: Hypoglycemia Sodium Chloride () 250 mls @ 15 mls/hr IV .[id number] PRN PRN Reason: Saline Flush Last Infusion: 07/28/19 16:47 Dose: Infused Documented by: Sodium Chloride () 250 mls @ 15 mls/hr IV .[id number] PRN PRN Reason: Additional IVPB Infusion Sodium Chloride () 500 mls @ 15 mls/hr IV PRN PRN PRN Reason: Blood Transfusion Last Infusion: 07/27/19 20:40 Dose: Infused Documented by: Lactated Ringer's () 1,000 mls @ 75 mls/hr IV .[id number] [facility] Last Infusion: 07/29/19 23:59 Dose: 75 mls/hr Documented by: Sodium Chloride () 1,000 mls @ 15 mls/hr IV .Q48H [facility] Last Infusion: 07/29/19 09:28 Dose: Infused Documented by: Insulin Glargine (Lantus (Bkc)) 10 units SC DAILY [facility] Last Admin: 07/30/19 08:44 Dose: 10 u Documented by: Insulin Human Lispro (Humalog Kwikpen (Bkc)) 0 unit SC TIDAC [facility]; Protocol Last Admin: 07/30/19 06:39 Dose: 1 units Documented by: Ipratropium [place] (Atrovent) 0.5 mg INHALATION Q6HWA.RT [facility] Last Admin: 07/30/19 07:29 Dose: 0.5 mg Documented by: Melatonin (Melatonin) 3 mg PO QHS PRN PRN PRN Reason: Insomnia Metoprolol Tartrate (Lopressor (Beta Estevan)) 25 mg PO BID [facility] Last Admin: 07/30/19 08:44 Dose: 25 mg Documented by: Ondansetron HCl (Zofran) 4 mg IV Q8H PRN PRN PRN Reason: NAUSEA/VOMITING Pantoprazole Sodium (Protonix) 40 mg PO BID [facility] Last Admin: 07/30/19 08:44 Dose: 40 mg Documented by: Pioglitazone HCl (Actos) 45 mg PO DAILY [facility] Last Admin: 07/30/19 08:43 Dose: 45 mg Documented by: Potassium Chloride (K-Dur) 20 meq PO DAILYCM [facility] Last Admin: 07/30/19 08:44 Dose: 20 meq Documented by: Senna/Docusate Sodium (Senokot-S, Jesica-Colace) 2 tablet PO BID PRN PRN PRN Reason: Constipation Sodium Chloride () 10 - 40 ml IV UD PRN PRN Reason: SALINE FLUSH Last Admin: 07/29/19 13:22 Dose: 10 ml Documented by: Tamsulosin HCl (Flomax) 0.4 mg PO BID [facility] Last Admin: 07/30/19 08:48 Dose: Not Given Documented by: Medical Necessity - Tobacco Use Smoking Status: Former smoker Assessment/Plan All Active Problems (Last Updated 07/26/19 @ 13:58 by Anneliese Cary) Hypotension (Acute) Anemia (Acute) Non-ST elevated myocardial infarction (non-STEMI) (Acute 07/25/19) Nonrheumatic aortic (valve) stenosis (Acute) History of coronary artery stent placement (Resolved) Acute and chronic respiratory failure (Resolved) Bronchitis (Resolved) RECOMMENDATIONS: 1. Increase activity as tolerated 2. Okay to stop IV fluids from my perspective. Reinitiate blood pressure medications in a stepwise fashion. 3. Wean oxygen as tolerated. Walking oximetry prior to discharge 4. No indication for additional blood products at this time 5. Continue scheduled bronchodilator therapy. 6. Continue twice daily Protonix. IMPRESSIONS: 1. Distributive versus cardiogenic shock Unclear etiology at this time. Patient did have elevated troponins consistent with a non-ST elevation [place]. Patient also had some worsening renal dysfunction in the setting of antihypertensive medications initially. Renal function has normalized and blood pressure has improved significantly. Relative adrenal insufficiency would be a consideration but blood pressures have responded appropriately with improvement in renal function. Patient did have relatively significant aortic stenosis noted on echocardiogram. Cardiac catheterization was not very indicative of etiology 2. Acute kidney injury Resolved. Likely prerenal in etiology with possible ATN due to hemodynamic instability. Continue current supportive measures as noted above. Monitor urine output. No current indication for renal replacement therapy. Likely okay to reinitiate blood pressure medications in a stepwise fashion. Defer to cardiology given patient's aortic stenosis for priority 3. Anemia The patient previously had a hemoglobin around 10 g/dL in mid June 2019. His hemoglobin has slowly trended down over the course of this hospitalization to a lon this morning of 7.7 g/dL. Patient responded well to blood transfusion. Recommend continuing twice daily PPI therapy. Blood counts have remained stable through the course of the hospitalization 4. Non-ST segment elevation [place] Cardiology is currently following. Echocardiogram was largely unrevealing, with the exception of diastolic dysfunction and aortic stenosis. Cardiac catheterization shows defects, but medical management was recommended. Patient with moderately severe aortic stenosis 5. History of severe COPD/chronic hypoxemic respiratory failure/recent admis vandana for COVID pneumonia The patient does have known severe COPD and chronic supplemental oxygen dependency. He is on a triple therapy inhaler regimen on an outpatient basis. However, he does appear to be at his baseline from a respiratory perspective. Continue bronchodilator therapy as ordered. 6. Diabetes mellitus/hypertension/peripheral arterial disease/coronary artery disease/neuropathy Complicates care, management, recovery and prognosis. Continue sliding scale insulin coverage. Physical therapy to work with the patient. Inpatient E&M: [id number] [facility] Hosp L2
[2019-07-30] MEDS: Lactated Ringers 1,000 ML 75 ML IV (11:54)
[2019-07-30 12:21] LABS: Bedside Glucose 240 mg/dL (70-110)
--- NOTE | 2019-07-30 14:31 | CASEMGMT ---
Addendum entered by Rosalie Addison 07/30/19 14:34: MAJOR spoke with patient's son Juan Miguel letting him know the d/c plan is TCU. He agreed with this plan. Plan: [facility] TCU when medically ready. Rosalie BRADFORD Original Note: SW spoke with patient about a discharge plan. He said he would be in agreement with going to [facility] TCU. He said his went there and he had a friend who went there who highly recommended it. Patient's name is on the TCU list. SW will check in with his son to update him on the plan. Rosalie BRADFORD
--- NOTE | 2019-07-30 15:46 | PN_ITS ---
Reason for Visit: shock Subjective: denies any complaints. Vitals/I&O's: Vital Signs Temp Pulse Resp BP Pulse Ox 36.7 C 68 16 111/55 L 97 07/30/19 14:28 07/30/19 14:28 07/30/19 14:28 07/30/19 14:28 07/30/19 14:28 Oxygen Flow Rate (L/min) 4 Oxygen Delivery Method Nasal Cannula Weight: 77.5 kg Body Mass Index (BMI) 23.8 Intake and Output for Last 24 Hours 07/28/19 07/29/19 07/30/19 23:59 23:59 23:59 Intake Total 1664.83 / 1811.08 2653.22 / 2653.22 893.75 / 893.75 Output Total 1925 / 1925 825 / 825 Balance -260.17 / -113.92 1828.22 / 1828.22 893.75 / 893.75 General: Alert, No apparent distress HEENT: Atraumatic, Normocephalic Oral: Moist Mucosa, No Gingival or Mucosal Lesions/ Ulcerations Neck: No Nodes, Trachea Midline Lungs: Clear to auscultation, Normal air movement, No rhonchi, No wheeze Cardiovascular: Regular rate, Regular Rhythm, Normal S1, Normal S2 Abdomen: Bowel Sounds Present, Soft, Non Tender, Non-Distended, No Hepato- splenomegaly Extremities: No edema, No Calf Tenderness Skin: No rashes, No breakdown Musculoskeletal: No Tenderness to Palpation of Joints or Extremities, No Muscle Wasting Psych/Mental Status: Normal Affect, Appropriate Microbiology Past 72 Hours 07/25/19 12:05 Blood Culture (Wb) - Anticubital Left Blood Culture - Final No growth in 5 days. 07/25/19 11:59 Blood Culture (Wb) - Right Forearm Blood Culture - Final No growth in 5 days. 07/25/19 13:55 Urine Catheter - Leiva Urine Culture - Final Culture exhibits no growth. Laboratory Results 07/29/19 16:13: POC Glucose 191 H 07/29/19 16:17: COVID-19 (CHARLIE) Pending 07/30/19 05:34: WBC 3.8 L, RBC 3.16 L, Hgb 9.8 L, Hct 31.4 L, MCV 99.4 H, MCH 31.0, MCHC 31.2 L, RDW Std Deviation 51.5 H, RDW Coeff of Delia 14.2, Plt Count 144 L, MPV 10.0, Immature Gran % (Auto) 0.800, Neut % (Auto) 51.8, Lymph % (Auto) 24.3, [place] % (Auto) 11.3 H, Eos % (Auto) 11.5 H, Baso % (Auto) 0.3, Absolute Neuts (auto) 2.0, Absolute Lymphs (auto) 0.93, Nucleated RBC % 0 07/30/19 05:34: Sodium 137, Potassium 4.4, Chloride 101, Carbon Dioxide 32.0, Anion Gap 4 L, BUN 17, Creatinine 0.90, Estim Creat Clear Calc 63.28, Est GFR (MDRD) Af Amer 104, Est GFR (MDRD) Non-Af 86, BUN/Creatinine Ratio 18.8, Glucose 190 H, Calcium 8.5, Magnesium 1.8 07/30/19 06:38: POC Glucose 180 H 07/30/19 11:51: POC Glucose 240 H Current Medications Acetaminophen (Tylenol) 650 mg PO Q6H PRN PRN PRN Reason: Pain Score 1-10/Temp > 100.7 F Al Hydroxide/Mg Hydroxide (Mylanta Ii) 30 ml PO Q6H PRN PRN PRN Reason: Gastric Burning Albuterol Sulfate (Ventolin Aerosols) 2.5 mg INHALATION Q2H PRN PRN PRN Reason: SOB/Wheezing Amlodipine Besylate (Norvasc) 5 mg PO DAILY [facility] Last Admin: 07/30/19 08:45 Dose: 5 mg Documented by: Aspirin (Aspirin, Baby) 81 mg PO DAILY@0800 [facility] Last Admin: 07/30/19 08:47 Dose: 81 mg Documented by: Atorvastatin Calcium (Lipitor) 40 mg PO QHS [facility] Last Admin: 07/29/19 22:33 Dose: 40 mg Documented by: Dextrose (D50w Syringe) 0 gm IV X1 PRN; Protocol PRN Reason: Hypoglycemia Enoxaparin Sodium (Lovenox) 40 mg SC DAILY@0600 [facility] Last Admin: 07/30/19 06:21 Dose: 40 mg Documented by: Gabapentin (Neurontin) 300 mg PO TID [facility] Last Admin: 07/30/19 14:32 Dose: 300 mg Documented by: Glimepiride (Amaryl) 1 mg PO DAILYCM [facility] Last Admin: 07/30/19 08:43 Dose: 1 mg Documented by: Glucagon () 1 mg IM .X1 PRN PRN Reason: Hypoglycemia Sodium Chloride () 250 mls @ 15 mls/hr IV .[id number] PRN PRN Reason: Saline Flush Last Infusion: 07/28/19 16:47 Dose: Infused Documented by: Sodium Chloride () 250 mls @ 15 mls/hr IV .[id number] PRN PRN Reason: Additional IVPB Infusion Sodium Chloride () 500 mls @ 15 mls/hr IV PRN PRN PRN Reason: Blood Transfusion Last Infusion: 07/27/19 20:40 Dose: Infused Documented by: Lactated Ringer's () 1,000 mls @ 75 mls/hr IV .[id number] [facility] Last Admin: 07/30/19 11:54 Dose: 75 mls/hr Documented by: Sodium Chloride () 1,000 mls @ 15 mls/hr IV .Q48H [facility] Last Infusion: 07/29/19 09:28 Dose: Infused Documented by: Insulin Glargine (Lantus (Bkc)) 10 units SC DAILY [facility] Last Admin: 07/30/19 08:44 Dose: 10 u Documented by: Insulin Human Lispro (Humalog Kwikpen (Bkc)) 0 unit SC TIDAC [facility]; Protocol Last Admin: 07/30/19 11:54 Dose: 2 units Documented by: Ipratropium [place] (Atrovent) 0.5 mg INHALATION Q6HWA.RT [facility] Last Admin: 07/30/19 13:25 Dose: Not Given Documented by: Melatonin (Melatonin) 3 mg PO QHS PRN PRN PRN Reason: Insomnia Metoprolol Tartrate (Lopressor (Beta Estevan)) 25 mg PO BID [facility] Last Admin: 07/30/19 08:44 Dose: 25 mg Documented by: Ondansetron HCl (Zofran) 4 mg IV Q8H PRN PRN PRN Reason: NAUSEA/VOMITING Pantoprazole Sodium (Protonix) 40 mg PO BID [facility] Last Admin: 07/30/19 08:44 Dose: 40 mg Documented by: Pioglitazone HCl (Actos) 45 mg PO DAILY [facility] Last Admin: 07/30/19 08:43 Dose: 45 mg Documented by: Potassium Chloride (K-Dur) 20 meq PO DAILYCM [facility] Last Admin: 07/30/19 08:44 Dose: 20 meq Documented by: Senna/Docusate Sodium (Senokot-S, Jesica-Colace) 2 tablet PO BID PRN PRN PRN Reason: Constipation Sodium Chloride () 10 - 40 ml IV UD PRN PRN Reason: SALINE FLUSH Last Admin: 07/29/19 13:22 Dose: 10 ml Documented by: Tamsulosin HCl (Flomax) 0.4 mg PO BID [facility] Last Admin: 07/30/19 08:48 Dose: Not Given Documented by: STROKE Vital Signs/Narrative: Vital Signs Temp Pulse Resp BP Pulse Ox 07/30/19 14:28 36.7 C 68 16 111/55 L 97 Medical Necessity - Tobacco Use Smoking Status: Former smoker Assessment/Plan All Active Problems (Last Updated 07/26/19 @ 13:58 by Anneliese Cary) Hypotension (Acute) Anemia (Acute) Non-ST elevated myocardial infarction (non-STEMI) (Acute 07/25/19) Nonrheumatic aortic (valve) stenosis (Acute) History of coronary artery stent placement (Resolved) Acute and chronic respiratory failure (Resolved) Bronchitis (Resolved) 1. Shock * resolved, may be distributive: Patient has been afebrile with no history of fever at home. Chest x-ray individually reviewed and shows no acute infiltrate. Lactic acid is elevated. * Blood cultures x2 and urine culture negative. UA is negative of pyuria or hematuria, LE and nitrite are negative. * 07/26: On vasopressor support. Right arm PICC line. Patient is on empiric antibiotics. No fever since admission. Had vancomycin on day of admission. * 07/27: Remains on vasopressor. Blood cultures x2- for 48 hours. Urine culture shows no growth. Patient did not had fever since admission. Repeat chest x- ray shows minimal basilar subsegmental atelectasis versus scarring. Emphysema. Can discontinue IV antibiotic * 07/28: Vasopressor was discontinued on 07/27. No fever off antibiotic. 2. Non-STEMI history of coronary artery status post stents: * Troponins are elevated, maximum 1.95. On IV heparin drip, baby aspirin, atorvastatin. Patient is in shock therefore no antihypertensive medication or beta-estevan. * EKG shows no ischemic changes. 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 * 07/26: Echo shows stage I diastolic dysfunction, EF 65%. Moderate aortic stenosis, mean AV gradient 36 mmHg.07/27: * 07/28 Left heart catheter showed fixed RCA development 3. FER * Creatinine peaked at 3.06, now down to 0.9 * Patient had hyperkalemia cocktail and was given Kayexalate. Repeat K5.5. Patient has good urine output, about 2.5 L on 07/24. Creatinine is improved * 07/26: Urine output 4.6 L last 24 hours. Positive fluid balance about 1 L. Improvement in BUN and creatinine. Electrolytes within normal limit. * 07/27: Improvement in BUN/creatinine, creatinine 1.1 on baseline. Good urine output. Positive about 600 mL fluid balance * 07/28: Kidney function on baseline. 4. Severe COPD, chronic hypoxic respiratory failure with recent COVID-19 pneumonia in June 2019: * On a scheduled nebulization. Incentive spirometry, Pap baseline 3 to 4 L/min currently on baseline. FEV1 37% in 5. 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 * 07/26: Glucose level elevated will titrate up insulin dose. * 07/27: Blood sugars have improved. 6. Acute anemia on baseline anemia of chronic disease, * most likely from IV heparin/anticoagulant and acute thrombocytopenia possible secondary to acute inflammation: Platelet count is decreased 110 at baseline about 200s. Patient hemoglobin is generally maintained 10 to 12 g%. Most recent 8.6. Monitor CBC * 07/26: H&H dropped to 7.7 from 9.3. Monitor CBC. On Protonix twice daily. Transfusion of 2 units of PRBC * 07/27: Posttransfusion H&H 10.3. Other comorbidities include hypertension, peripheral arterial disease, bilateral carotid stenosis, anemia of chronic disease, thrombocytopenia, BPH DVT prophylaxis: On Lovenox 40 mg subcu daily Debility: awaiting on authorization from insurance for TCU. Inpatient E&M: 52616 Subs Hosp L2
[2019-07-30 16:31] LABS: Bedside Glucose 154 mg/dL (70-110)
[2019-07-30] MEDS: Acetaminophen 325 MG Tablet 650 MG PO (21:51)
[2019-07-30] MEDS: Tamsulosin HCl 0.4 MG Capsule PO (21:52)
[2019-07-30] MEDS: Atorvastatin Calcium 40 MG Tablet PO (21:52)
[2019-07-30 22:05] LABS: Bedside Glucose 151 mg/dL (70-110)
[2019-07-31] VITALS (15 sets, daily range): BP systolic 99–110; BP diastolic 38–47; PULSE 65–78; RESP 16–18; TEMP 36.4–36.9; O2SAT 94–98
[2019-07-31] MEDS: Lactated Ringers 1,000 ML 75 ML IV ×2 (01:09→13:26)
[2019-07-31] MEDS: Gabapentin 300 MG Capsule PO ×3 (05:58→21:47)
[2019-07-31] MEDS: Enoxaparin 40 MG/0.4 ML Syringe SC (05:58)
[2019-07-31] MEDS: 0.9% Saline Lock 10 ML Syringe IV (06:52)
[2019-07-31 07:00] LABS: Absolute Lymphocyte Count 1.19 X10^3/uL (0.83-4.51); Basophil# 0.01 X10^3/uL; Basophil% 0.2 % (0-1); Eosinophils% 9.7 % (0-5); Hematocrit 29.8 % (40-54); Hemoglobin 9.3 g/dL (13.0-16.5); Lymphocyte # 1.19 X10^3/ul (4.0); Mean Corp Hgb Conc 31.2 g/dL (32-36); Mean Corpuscular Hgb 31.1 pg (27.0-32.0); Mean Corpuscular Volume 99.7 fL (80-94); Mean Platelet Vol. 10.2 fl (6.2-12.0); Monocyte# 0.48 X10^3/uL; Monocyte% 11.7 % (0-10); NRBC Flagged by Analyzer 0 % (0-5); Neutrophil # 2.01 X10^3/uL (2.7-7.7); Neutrophil % 48.9 % (47-70); Platelet Count 166 K/mm3 (150-450); RBC Distribution Width CV 14.4 % (11.6-14.6); RBC Distribution Width SD 51.6 fl (35.1-43.9); Red Blood Count 2.99 M/mm3 (4.6-6.2); White Blood Count 4.1 K/mm3 (4.4-11.0)
[2019-07-31 07:00] LABS: Bedside Glucose 130 mg/dL (70-110)
[2019-07-31 07:12] LABS: Anion Gap 2 (5-15); BUN 19 mg/dL (7-18); BUN/Creat Ratio 18.8 RATIO (10-20); Calcium,Total 8.1 mg/dL (8.5-10.1); Chloride 100 mmol/L (98-107); Creatinine, Serum 1.01 mg/dL (0.70-1.30); EST Glomerular Filtration Rate 75 mL/min (>60); Est Glom Filt Rate - Afr Amer 91 mL/min (>60); Estimated Creatinine Clearance 56.39 ml/min; Glucose 137 mg/dL (74-106); Potassium 4.4 mmol/L (3.5-5.1); Sodium Level 137 mmol/L (136-145)
[2019-07-31] MEDS: Ipratropium 0.5 MG/2.5 ML SOLUTION INHALATION ×3 (07:18→19:11)
--- NOTE | 2019-07-31 08:00 | PCM.PN.PUL ---
Subjective: Patient slept well overnight. No acute issues were reported. Patient feels subjectively unchanged compared to previous. Patient has remained on 4 L nasal cannula and increases to 6 L with exertion. - Physical Exam Vitals/I&O's: Vital Signs Temp Pulse Resp BP Pulse Ox 36.8 C 66 18 104/40 L 98 07/31/19 04:20 07/31/19 07:18 07/31/19 07:18 07/31/19 04:20 07/31/19 07:33 Oxygen Flow Rate (L/min) 4 Oxygen Delivery Method Nasal Cannula Weight: 78.2 kg Body Mass Index (BMI) 23.8 Intake and Output for Last 24 Hours 07/29/19 07/30/19 07/31/19 23:59 23:59 23:59 Intake Total 2653.22 / 2653.22 1243.75 / 1243.75 1458.75 / 1458.75 Output Total 825 / 825 Balance 1828.22 / 1828.22 1243.75 / 1243.75 1458.75 / 1458.75 General: Alert, Oriented x3, Cooperative, No apparent distress, - - No conversational dyspnea HEENT: Atraumatic, PERRLA, EOMI, Normocephalic, - - No scleral icterus or injection Oral: Moist Mucosa, No Gingival or Mucosal Lesions/ Ulcerations Neck: Supple, No JVD, No Nodes, Trachea Midline Lungs: No rhonchi, No wheeze, No rales, Diminished, - - Symmetric expansion. No dullness to percussion Cardiovascular: Regular rate, Regular Rhythm, Normal S1, Normal S2, Murmur, No rub noted, No Gallop Abdomen: Bowel Sounds Present, Soft, Non Tender, Non-Distended Extremities: No clubbing, No cyanosis, No edema, Capillary Refill Less than 3 Seconds Skin: No rashes, No breakdown Musculoskeletal: No Tenderness to Palpation of Joints or Extremities Lymphatic: No Cervical, Supraclavicular, or Inguinal Adenopathy Neurological: Cranial nerves II-XII grossly intact, Neuro grossly intact, Motor Exam 5/5 strength throughout Psych/Mental Status: Alert and oriented to time, place, person, mood and affect Microbiology Past 72 Hours 07/25/19 12:05 Blood Culture (Wb) - Anticubital Left Blood Culture - Final No growth in 5 days. 07/25/19 11:59 Blood Culture (Wb) - Right Forearm Blood Culture - Final No growth in 5 days. 07/25/19 13:55 Urine Catheter - Leiva Urine Culture - Final Culture exhibits no growth. Laboratory Results 07/30/19 11:51: POC Glucose 240 H 07/30/19 16:18: POC Glucose 154 H 07/30/19 21:47: POC Glucose 151 H 07/31/19 06:40: WBC 4.1 L, RBC 2.99 L, Hgb 9.3 L, Hct 29.8 L, MCV 99.7 H, MCH 31.1, MCHC 31.2 L, RDW Std Deviation 51.6 H, RDW Coeff of Delia 14.4, Plt Count 166, MPV 10.2, Immature Gran % (Auto) 0.500, Neut % (Auto) 48.9, Lymph % (Auto) 29.0, [place] % (Auto) 11.7 H, Eos % (Auto) 9.7 H, Baso % (Auto) 0.2, Absolute Neuts (auto) 2.0, Absolute Lymphs (auto) 1.19, Nucleated RBC % 0 07/31/19 06:40: Sodium 137, Potassium 4.4, Chloride 100, Carbon Dioxide 35.0 H, Anion Gap 2 L, BUN 19 H, Creatinine 1.01, Estim Creat Clear Calc 56.39, Est GFR (MDRD) Af Amer 91, Est GFR (MDRD) Non-Af 75, BUN/Creatinine Ratio 18.8, Glucose 137 H, Calcium 8.1 L 07/31/19 06:53: POC Glucose 130 H Current Medications Acetaminophen (Tylenol) 650 mg PO Q6H PRN PRN PRN Reason: Pain Score 1-10/Temp > 100.7 F Last Admin: 07/30/19 21:51 Dose: 650 mg Documented by: Al Hydroxide/Mg Hydroxide (Mylanta Ii) 30 ml PO Q6H PRN PRN PRN Reason: Gastric Burning Albuterol Sulfate (Ventolin Aerosols) 2.5 mg INHALATION Q2H PRN PRN PRN Reason: SOB/Wheezing Amlodipine Besylate (Norvasc) 5 mg PO DAILY [facility] Last Admin: 07/30/19 08:45 Dose: 5 mg Documented by: Aspirin (Aspirin, Baby) 81 mg PO DAILY@0800 [facility] Last Admin: 07/30/19 08:47 Dose: 81 mg Documented by: Atorvastatin Calcium (Lipitor) 40 mg PO QHS [facility] Last Admin: 07/30/19 21:52 Dose: 40 mg Documented by: Dextrose (D50w Syringe) 0 gm IV X1 PRN; Protocol PRN Reason: Hypoglycemia Enoxaparin Sodium (Lovenox) 40 mg SC DAILY@0600 [facility] Last Admin: 07/31/19 05:58 Dose: 40 mg Documented by: Gabapentin (Neurontin) 300 mg PO TID [facility] Last Admin: 07/31/19 05:58 Dose: 300 mg Documented by: Glimepiride (Amaryl) 1 mg PO DAILYCM [facility] Last Admin: 07/30/19 08:43 Dose: 1 mg Documented by: Glucagon () 1 mg IM .X1 PRN PRN Reason: Hypoglycemia Sodium Chloride () 250 mls @ 15 mls/hr IV .[id number] PRN PRN Reason: Saline Flush Last Infusion: 07/28/19 16:47 Dose: Infused Documented by: Sodium Chloride () 250 mls @ 15 mls/hr IV .[id number] PRN PRN Reason: Additional IVPB Infusion Sodium Chloride () 500 mls @ 15 mls/hr IV PRN PRN PRN Reason: Blood Transfusion Last Infusion: 07/27/19 20:40 Dose: Infused Documented by: Lactated Ringer's () 1,000 mls @ 75 mls/hr IV .[id number] [facility] Last Infusion: 07/31/19 06:02 Dose: 75 mls/hr Documented by: Sodium Chloride () 1,000 mls @ 15 mls/hr IV .Q48H [facility] Last Infusion: 07/29/19 09:28 Dose: Infused Documented by: Insulin Glargine (Lantus (Bkc)) 10 units SC DAILY [facility] Last Admin: 07/30/19 08:44 Dose: 10 u Documented by: Insulin Human Lispro (Humalog Kwikpen (Bk)) 0 unit SC TIDAC [facility]; Protocol Last Admin: 07/31/19 07:03 Dose: Not Given Documented by: Ipratropium [place] (Atrovent) 0.5 mg INHALATION Q6HWA.RT [facility] Last Admin: 07/31/19 07:18 Dose: 0.5 mg Documented by: Melatonin (Melatonin) 3 mg PO QHS PRN PRN PRN Reason: Insomnia Metoprolol Tartrate (Lopressor (Beta Estevan)) 25 mg PO BID [facility] Last Admin: 07/30/19 21:52 Dose: 25 mg Documented by: Ondansetron HCl (Zofran) 4 mg IV Q8H PRN PRN PRN Reason: NAUSEA/VOMITING Pantoprazole Sodium (Protonix) 40 mg PO BID [facility] Last Admin: 07/30/19 22:01 Dose: Not Given Documented by: Pioglitazone HCl (Actos) 45 mg PO DAILY [facility] Last Admin: 07/30/19 08:43 Dose: 45 mg Documented by: Potassium Ch[facility] ([facility]) [facility] Last Admin: 07/30/19 08:44 Dose: 20 meq Documented by: Senna/Docusate Sodium (Senokot-S, Jesica-Colace) 2 tablet PO BID PRN PRN PRN Reason: Constipation Sodium Chloride () 10 - 40 ml IV UD PRN PRN Reason: SALINE FLUSH Last Admin: 07/31/19 06:52 Dose: 30 ml Documented by: Tamsulosin HCl (Flomax) 0.4 mg PO BID [facility] Last Admin: 07/30/19 21:52 Dose: 0.4 mg Documented by: Medical Necessity - Tobacco Use Smoking Status: Former smoker Assessment/Plan All Active Problems (Last Updated 07/26/19 @ 13:58 by Anneliese Cary) Hypotension (Acute) Anemia (Acute) Non-ST elevated myocardial infarction (non-STEMI) (Acute 07/25/19) Nonrheumatic aortic (valve) stenosis (Acute) History of coronary artery stent placement (Resolved) Acute and chronic respiratory failure (Resolved) Bronchitis (Resolved) RECOMMENDATIONS: 1. Increase activity as tolerated 2. Defer to cardiology for reinitiation of blood pressure medications. 3. Wean oxygen as tolerated. Walking oximetry prior to discharge 4. No indication for additional blood products at this time 5. Continue scheduled bronchodilator therapy. 6. Continue twice daily Protonix. IMPRESSIONS: 1. Distributive versus cardiogenic shock Resolved. Unclear etiology at this time. Patient did have elevated troponins consistent with a non-ST elevation TN. Patient also had some worsening renal dysfunction in the setting of antihypertensive medications initially. Renal function has normalized and blood pressure has improved significantly. Relative adrenal insufficiency would be a consideration but blood pressures have responded appropriately with improvement in renal function. Patient did have relatively significant aortic stenosis noted on echocardiogram. Cardiac catheterization was not very indicative of etiology 2. Acute kidney injury Resolved. Likely prerenal in etiology with possible ATN due to hemodynamic instability. Continue current supportive measures as noted above. Monitor urine output. No current indication for renal replacement therapy. Likely okay to reinitiate blood pressure medications in a stepwise fashion. Defer to cardiology given patient's aortic stenosis for priority 3. Anemia The patient previously had a hemoglobin around 10 g/dL in mid June 2019. His hemoglobin has slowly trended down over the course of this hospitalization to a lon this morning of 7.7 g/dL. Patient responded well to blood transfusion. Recommend continuing twice daily PPI therapy. Blood counts have remained stable through the course of the hospitalization 4. Non-ST segment elevation TN Cardiology is currently following. Echocardiogram was largely unrevealing, with the exception of diastolic dysfunction and aortic stenosis. Cardiac catheterization shows defects, but medical management was recommended. Patient with moderately severe aortic stenosis 5. History of severe COPD/chronic hypoxemic respiratory failure/recent admission for COVID pneumonia The patient does have known severe COPD and chronic supplemental oxygen dependency. He is on a triple therapy inhaler regimen on an outpatient basis. However, he does appear to be at his baseline from a respiratory perspective. Continue bronchodilator therapy as ordered. 6. Diabetes mellitus/hypertension/peripheral arterial disease/coronary artery disease/neuropathy Complicates care, management, recovery and prognosis. Continue sliding scale insulin coverage. Physical therapy to work with the patient. Inpatient E&M: [id number] [facility] H[facility] L2
--- NOTE | 2019-07-31 08:46 | PN.CARD_ITS ---
Subjectve: Patient seen and evaluated. Appears to be doing better. No complaints. Objective: Vital Signs Temp Pulse Resp BP Pulse Ox 98.2 F 66 18 104/40 L 98 07/31/19 04:20 07/31/19 07:18 07/31/19 07:18 07/31/19 04:20 07/31/19 07:33 Oxygen Flow Rate (L/min) 4 Oxygen Delivery Method Nasal Cannula Weight: 172 lb 6.424 oz Body Mass Index (BMI) 23.8 Intake and Output for Last 24 Hours 07/29/19 07/30/19 07/31/19 23:59 23:59 23:59 Intake Total 2653.22 / 2653.22 1243.75 / 1243.75 1458.75 / 1458.75 Output Total 825 / 825 Balance 1828.22 / 1828.22 1243.75 / 1243.75 1458.75 / 1458.75 General: Awake, Alert, Oriented x 3 HEENT: PERRL, EOMI, Sclera Non Icteric Neck: Supple, Good ROM, No Lymph Node Enlargement Lungs: Clear to auscultation Cardiovascular: Regular Rhythm, Normal S1, Normal S2, No Murmurs, No Rubs, No Gallops Vascular: No Carotid Bruits, Normal Femoral Pulses, Normal Radial Pulses, Normal Dorsalis Pedal Pulse, Normal Posterior Tibial Pulses Abdomen: Bowel Sounds Present, Soft, Non Tender, No HSM, No Organomegaly Extremities: No Cyanosis, No Clubbing, No edema Neurological: No Focal Motor or Sensory Deficit 07/31/19 06:40: WBC 4.1 L, RBC 2.99 L, Hgb 9.3 L, Hct 29.8 L, MCV 99.7 H, MCH 31.1, MCHC 31.2 L, Plt Count 166, MPV 10.2, Immature Gran % (Auto) 0.500, Neut % (Auto) 48.9, Lymph % (Auto) 29.0, [place] % (Auto) 11.7 H, Eos % (Auto) 9.7 H, Baso % (Auto) 0.2, Absolute Neuts (auto) 2.0, Nucleated RBC % 0 07/31/19 06:40: Sodium 137, Potassium 4.4, Chloride 100, Carbon Dioxide 35.0 H, Anion Gap 2 L, BUN 19 H, Creatinine 1.01, Est GFR (MDRD) Af Amer 91, Est GFR (MDRD) Non-Af 75, BUN/Creatinine Ratio 18.8, Glucose 137 H, Calcium 8.1 L Rhythm: EKG: ECHO: Stress Test: Cardiac Cath: PCI: CT Surgery: Holter monitor: EPS: PPM: CXR: Chest CT Scan: Medical Necessity - Tobacco Use Smoking Status: Former smoker Assessment/Plan 1. Non-ST elevation myocardial infarction * He presented with hypotension sepsis elevated lactic acid and is noted to have an elevated troponin. He has no EKG changes and no chest pain. My suspicion is that the above is secondary to fixed coronary disease rather than plaque rupture. * An echocardiogram demonstrated overall preserved left ventricular systolic function. * He will continue on the appropriate beta-liyah and risk factor modifying drugs. * He underwent a cardiac catheterization with demonstrated the following: Mildly calcified left main coronary artery with no significant stenosis. Left anterior descending artery with previously placed stent which is patent with diffuse mild disease. Dominant circumflex artery with diffuse disease with no high-grade stenosis. Nondominant right coronary artery with proximal 80% stenosis. Based on the above angiographic findings the patient will be treated with nj dical therapy. * 2. Recent COVID-19 * He appears to be still recovering from his recent COVID-19 infection for which he received convalescent plasma. * Will defer to hospitalist and primary care physician and refrigerator car icer regarding the above * 3. Severe anemia * He presented with significant anemia. He has benefited from 2 units of packed red blood cell transfusion. * At this time he does not need any coronary intervention and he can be seen by GI or surgery to have a colonoscopy at some point. 4. Previous coronary artery disease * He does have a history of previous coronary artery disease. From the history it appears that he was stented previously. His anatomy is as discussed above. * He should continue with the supportive care at this particular time. * 5 Aortic valve stenosis * This appears to be moderate and will not make any therapeutic changes at this time. * His ejection fraction was noted to be normal. * My suspicion is that he was dehydrated and became hypotensive and with his aortic valve disease it worsened his perfusion resulting in his non-ST elevation myocardial infarction as well as his renal dysfunction. * Thank you for allowing me to participate in the care of your patient. Please don't hesitate to call if any issues arise.
[2019-07-31] MEDS: Pantoprazole Sodium 40 MG Tablet PO ×2 (09:35→21:47)
[2019-07-31] MEDS: Aspirin 81 MG TAB.CHEW PO (09:35)
[2019-07-31] MEDS: Tamsulosin HCl 0.4 MG Capsule PO ×2 (09:35→21:47)
[2019-07-31] MEDS: Glimepiride 1 MG Tablet PO (09:36)
[2019-07-31] MEDS: Pioglitazone Hydrochloride 45 MG Tablet PO (09:36)
[2019-07-31] MEDS: Metoprolol Tartrate 25 MG Tablet PO ×2 (09:40→21:47)
[2019-07-31] MEDS: Insulin Lispro 100 UNIT/ML INSULN.PEN SC ×2 (11:48→16:33)
[2019-07-31 11:55] LABS: Bedside Glucose 265 mg/dL (70-110)
--- NOTE | 2019-07-31 15:39 | PCM.PN.HOSP ---
Reason for Visit: shock Subjective: denies any new complaints. Vitals/I&O's: Vital Signs Temp Pulse Resp BP Pulse Ox 36.9 C 68 16 99/42 L 97 07/31/19 09:31 07/31/19 13:44 07/31/19 13:44 07/31/19 09:40 07/31/19 09:31 Oxygen Flow Rate (L/min) 4 Oxygen Delivery Method Nasal Cannula Weight: 78.2 kg Body Mass Index (BMI) 23.8 Intake and Output for Last 24 Hours 07/29/19 07/30/19 07/31/19 23:59 23:59 23:59 Intake Total 2653.22 / 2653.22 1243.75 / 1243.75 Output Total 825 / 825 Balance 1828.22 / 1828.22 1243.75 / 1243.75 General: Alert, No apparent distress HEENT: Atraumatic, Normocephalic Oral: Moist Mucosa, No Gingival or Mucosal Lesions/ Ulcerations Neck: No Nodes, Thyroid Normal Size and Texture Lungs: Clear to auscultation, Normal air movement, No rhonchi, No wheeze Cardiovascular: Regular rate, Regular Rhythm, Normal S1, Normal S2, No murmurs Abdomen: Bowel Sounds Present, Soft, Non Tender, Non-Distended Extremities: No edema, No Calf Tenderness Skin: No rashes, No breakdown Psych/Mental Status: Normal Affect, Appropriate Microbiology Past 72 Hours 07/25/19 12:05 Blood Culture (Wb) - Anticubital Left Blood Culture - Final No growth in 5 days. 07/25/19 11:59 Blood Culture (Wb) - Right Forearm Blood Culture - Final No growth in 5 days. Laboratory Results 07/30/19 16:18: POC Glucose 154 H 07/30/19 21:47: POC Glucose 151 H 07/31/19 06:40: WBC 4.1 L, RBC 2.99 L, Hgb 9.3 L, Hct 29.8 L, MCV 99.7 H, MCH 31.1, MCHC 31.2 L, RDW Std Deviation 51.6 H, RDW Coeff of Delia 14.4, Plt Count 166, MPV 10.2, Immature Gran % (Auto) 0.500, Neut % (Auto) 48.9, Lymph % (Auto) 29.0, [place] % (Auto) 11.7 H, Eos % (Auto) 9.7 H, Baso % (Auto) 0.2, Absolute Neuts (auto) 2.0, Absolute Lymphs (auto) 1.19, Nucleated RBC % 0 07/31/19 06:40: Sodium 137, Potassium 4.4, Chloride 100, Carbon Dioxide 35.0 H, Anion Gap 2 L, BUN 19 H, Creatinine 1.01, Estim Creat Clear Calc 56.39, Est GFR (MDRD) Af Amer 91, Est GFR (MDRD) Non-Af 75, BUN/Creatinine Ratio 18.8, Glucose 137 H, Calcium 8.1 L 07/31/19 06:53: POC Glucose 130 H 07/31/19 11:47: POC Glucose 265 H 07/31/19 14:50: COVID-19 (CHARLIE) Pending Current Medications Acetaminophen (Tylenol) 650 mg PO Q6H PRN PRN PRN Reason: Pain Score 1-10/Temp > 100.7 F Last Admin: 07/30/19 21:51 Dose: 650 mg Documented by: Al Hydroxide/Mg Hydroxide (Mylanta Ii) 30 ml PO Q6H PRN PRN PRN Reason: Gastric Burning Albuterol Sulfate (Ventolin Aerosols) 2.5 mg INHALATION Q2H PRN PRN PRN Reason: SOB/Wheezing Amlodipine Besylate (Norvasc) 5 mg PO DAILY [facility] Last Admin: 07/31/19 09:34 Dose: Not Given Documented by: Aspirin (Aspirin, Baby) 81 mg PO DAILY@0800 [facility] Last Admin: 07/31/19 09:35 Dose: 81 mg Documented by: Atorvastatin Calcium (Lipitor) 40 mg PO QHS [facility] Last Admin: 07/30/19 21:52 Dose: 40 mg Documented by: Calamine/Phenol (Calmoseptine Ointment) 1 applic TOPICAL BID [facility]; Protocol Dextrose (D50w Syringe) 0 gm IV X1 PRN; Protocol PRN Reason: Hypoglycemia Enoxaparin Sodium (Lovenox) 40 mg SC DAILY@0600 [facility] Last Admin: 07/31/19 05:58 Dose: 40 mg Documented by: Gabapentin (Neurontin) 300 mg PO TID [facility] Last Admin: 06/11/20 13:25 Dose: 300 mg Documented by: Glimepiride (Amaryl) 1 mg PO DAILYCM [facility] Last Admin: 07/31/19 09:36 Dose: 1 mg Documented by: Glucagon () 1 mg IM .X1 PRN PRN Reason: Hypoglycemia Sodium Chloride () 250 mls @ 15 mls/hr IV .[id number] PRN PRN Reason: Saline Flush Last Infusion: 07/28/19 16:47 Dose: Infused Documented by: Sodium Chloride () 250 mls @ 15 mls/hr IV .[id number] PRN PRN Reason: Additional IVPB Infusion Sodium Chloride () 500 mls @ 15 mls/hr IV PRN PRN PRN Reason: Blood Transfusion Last Infusion: 07/27/19 20:40 Dose: Infused Documented by: Lactated Ringer's () 1,000 mls @ 75 mls/hr IV .[id number] [facility] Last Admin: 07/31/19 13:26 Dose: 75 mls/hr Documented by: Sodium Chloride () 1,000 mls @ 15 mls/hr IV .Q48H [facility] Last Infusion: 07/29/19 09:28 Dose: Infused Documented by: Insulin Glargine (Lantus ([facility])) 10 units SC DAILY [facility] Last Admin: 07/31/19 09:36 Dose: 10 u Documented by: Insulin Human Lispro (Humalog Kwikpen ([facility])) 0 unit SC TIDAC [facility]; Protocol Last Admin: 07/31/19 11:48 Dose: 2 units Documented by: Ipratropium [place] (Atrovent) 0.5 mg INHALATION Q6HWA.RT [facility] Last Admin: 07/31/19 13:17 Dose: 0.5 mg Documented by: Melatonin (Melatonin) 3 mg PO QHS PRN PRN PRN Reason: Insomnia Metoprolol Tartrate (Lopressor (Beta Estevan)) 25 mg PO BID [facility] Last Admin: 07/31/19 09:40 Dose: 25 mg Documented by: Ondansetron HCl (Zofran) 4 mg IV Q8H PRN PRN PRN Reason: NAUSEA/VOMITING Pantoprazole Sodium (Protonix) 40 mg PO BID [facility] Last Admin: 07/31/19 09:35 Dose: 40 mg Documented by: Pioglitazone HCl (Actos) 45 mg PO DAILY [facility] Last Admin: 07/31/19 09:36 Dose: 45 mg Documented by: Potassium Chloride (K-Dur) 20 meq PO DAILYCM [facility] Last Admin: 07/31/19 09:35 Dose: 20 meq Documented by: Senna/Docusate Sodium (Senokot-S, Jesica-Colace) 2 tablet PO BID PRN PRN PRN Reason: Constipation Sodium Chloride () 10 - 40 ml IV UD PRN PRN Reason: SALINE FLUSH Last Admin: 07/31/19 06:52 Dose: 30 ml Documented by: Tamsulosin HCl (Flomax) 0.4 mg PO BID [facility] Last Admin: 07/31/19 09:35 Dose: 0.4 mg Documented by: STROKE Vital Signs/Narrative: Vital Signs Pulse Resp 07/31/19 13:44 68 16 Medical Necessity - Tobacco Use Smoking Status: Former smoker Assessment/Plan All Active Problems (Last Updated 07/26/19 @ 13:58 by Anneliese Cary) Hypotension (Acute) Anemia (Acute) Non-ST elevated myocardial infarction (non-STEMI) (Acute 07/25/19) Nonrheumatic aortic (valve) stenosis (Acute) History of coronary artery stent placement (Resolved) Acute and chronic respiratory failure (Resolved) Bronchitis (Resolved) 1. Shock resolved, may be distributive: Patient has been afebrile with no history of fever at home. Chest x-ray individually reviewed and shows no acute infiltrate. Lactic acid is elevated. Blood cultures x2 and urine culture negative. UA is negative of pyuria or hematuria, LE and nitrite are negative. 07/26: On vasopressor support. Right arm PICC line. Patient is on empiric antibiotics. No fever since admission. Had vancomycin on day of admission. 07/27: Remains on vasopressor. Blood cultures x2- for 48 hours. Urine culture shows no growth. Patient did not had fever since admission. Repeat chest x-ray shows minimal basilar subsegmental atelectasis versus scarring. Emphysema. Can discontinue IV antibiotic 07/28: Vasopressor was discontinued on 07/27. No fever off antibiotic. 2. Non-STEMI history of coronary artery status post stents: Troponins are elevated, maximum 1.95. On IV heparin drip, baby aspirin, atorvastatin. Patient is in shock therefore no antihypertensive medication or beta-estevan. EKG shows no ischemic changes. Seen by carrot buncher. 07/26: Echo shows stage I diastolic dysfunction, EF 65%. Moderate aortic stenosis, mean AV gradient 36 mmHg.07/27: 07/28 Left heart catheter showed fixed RCA development 3. FER Creatinine peaked at 3.06, now 1 Patient had hyperkalemia cocktail and was given Kayexalate. Repeat K5.5. Patient has good urine output, about 2.5 L on 07/24. Creatinine is improved 07/26: Urine output 4.6 L last 24 hours. Positive fluid balance about 1 L. Improvement in BUN and creatinine. Electrolytes within normal limit. 07/27: Improvement in BUN/creatinine, creatinine 1.1 on baseline. Good urine output. Positive about 600 mL fluid balance 07/28: Kidney function on baseline. 4. Severe COPD, chronic hypoxic respiratory failure with recent COVID-19 pneumonia in June 2019: On a scheduled nebulization. Incentive spirometry, Pap baseline 3 to 4 L/min currently on baseline. FEV1 37% in 5. 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 07/26: Glucose level elevated will titrate up insulin dose. 07/27: Blood sugars have improved. 6. Acute anemia on baseline anemia of chronic disease, most likely from IV heparin/anticoagulant and acute thrombocytopenia possible secondary to acute inflammation: Platelet count is decreased 110 at baseline about 200s. Patient hemoglobin is generally maintained 10 to 12 g%. Most recent 8.6. Monitor CBC 07/26: H&H dropped to 7.7 from 9.3. Monitor CBC. On Protonix twice daily. Transfusion of 2 units of PRBC 07/27: Posttransfusion H&H 10.3. 7. ABLA s/p 2 units PRBCs Hg currently stable on empiric PPI Other comorbidities include hypertension, peripheral arterial disease, bilateral carotid stenosis, anemia of chronic disease, thrombocytopenia, BPH DVT prophylaxis: On Lovenox 40 mg subcu daily Debility: awaiting on authorization from insurance for TCU. Apparently needs 2 negative COVID-19 tests. Final results won't be back for another 48h. Inpatient E&M: [id number] [facility] Hosp L2
[2019-07-31 16:46] LABS: Bedside Glucose 177 mg/dL (70-110)
[2019-07-31] MEDS: Menthol/Lanolin/Calamine/Znox 113 GM Tube 1 APPLIC TOPICAL (21:46)
[2019-07-31] MEDS: Atorvastatin Calcium 40 MG Tablet PO (21:47)
[2019-07-31 22:15] LABS: Bedside Glucose 183 mg/dL (70-110)
[2019-08-01] VITALS (7 sets, daily range): BP systolic 108–119; BP diastolic 44–48; PULSE 68–82; RESP 14–17; TEMP 36.6–36.9; O2SAT 93–97
[2019-08-01] MEDS: Lactated Ringers 1,000 ML 75 ML IV (02:53)
[2019-08-01] MEDS: Enoxaparin 40 MG/0.4 ML Syringe SC (06:39)
[2019-08-01] MEDS: Gabapentin 300 MG Capsule PO ×2 (06:40→15:10)
[2019-08-01] MEDS: Insulin Lispro 100 UNIT/ML INSULN.PEN SC ×2 (06:40→11:41)
[2019-08-01 06:55] LABS: Bedside Glucose 163 mg/dL (70-110)
[2019-08-01] MEDS: Ipratropium 0.5 MG/2.5 ML SOLUTION INHALATION ×2 (07:00→12:51)
[2019-08-01 07:30] LABS: Absolute Lymphocyte Count 1.18 X10^3/uL (0.83-4.51); Absolute Neutrophil Count 2.5 X10^3/uL (2.0-7.7); Basophil# 0.02 X10^3/uL; Basophil% 0.4 % (0-1); Eosinophil# 0.41 X10^3/uL; Hematocrit 33.3 % (40-54); Hemoglobin 10.1 g/dL (13.0-16.5); Lymphocyte # 1.18 X10^3/ul (4.0); Lymphocyte % 25.8 % (19-41); Mean Corp Hgb Conc 30.3 g/dL (32-36); Mean Corpuscular Hgb 30.7 pg (27.0-32.0); Mean Corpuscular Volume 101.2 fL (80-94); Mean Platelet Vol. 10.4 fl (6.2-12.0); Monocyte# 0.44 X10^3/uL; Monocyte% 9.6 % (0-10); NRBC Flagged by Analyzer 0 % (0-5); Neutrophil # 2.49 X10^3/uL (2.7-7.7); Neutrophil % 54.5 % (47-70); Platelet Count 202 K/mm3 (150-450); RBC Distribution Width CV 14.3 % (11.6-14.6); RBC Distribution Width SD 52.7 fl (35.1-43.9); Red Blood Count 3.29 M/mm3 (4.6-6.2); White Blood Count 4.6 K/mm3 (4.4-11.0)
[2019-08-01 08:07] LABS: Anion Gap 3 (5-15); BUN 21 mg/dL (7-18); BUN/Creat Ratio 22.2 RATIO (10-20); Calcium,Total 8.5 mg/dL (8.5-10.1); Chloride 100 mmol/L (98-107); Creatinine, Serum 0.95 mg/dL (0.70-1.30); EST Glomerular Filtration Rate 81 mL/min (>60); Est Glom Filt Rate - Afr Amer 98 mL/min (>60); Estimated Creatinine Clearance 59.95 ml/min; Glucose 167 mg/dL (74-106); Potassium 4.7 mmol/L (3.5-5.1); Sodium Level 137 mmol/L (136-145)
[2019-08-01] MEDS: Glimepiride 1 MG Tablet PO (09:07)
[2019-08-01] MEDS: Metoprolol Tartrate 25 MG Tablet PO (09:07)
[2019-08-01] MEDS: Pioglitazone Hydrochloride 45 MG Tablet PO (09:07)
[2019-08-01] MEDS: Aspirin 81 MG TAB.CHEW PO (09:07)
[2019-08-01] MEDS: Tamsulosin HCl 0.4 MG Capsule PO (09:07)
[2019-08-01] MEDS: amLODIPine 5 MG Tablet PO (09:07)
[2019-08-01] MEDS: Pantoprazole Sodium 40 MG Tablet PO (09:07)
[2019-08-01] MEDS: Menthol/Lanolin/Calamine/Znox 113 GM Tube 1 APPLIC TOPICAL (09:08)
--- NOTE | 2019-08-01 09:58 | PCM.PN.PUL ---
Subjective: Patient did well overnight. No acute issues were reported. Patient continues to have a cough, but does not believe this is significantly changed from baseline. Patient has been on his baseline nasal cannula oxygen. Patient denies any chest pain, abdominal pain, nausea or vomiting at this time. - Physical Exam Vitals/I&O's: Vital Signs Temp Pulse Resp BP Pulse Ox 36.9 C 82 16 119/44 L 94 08/01/19 09:05 08/01/19 09:07 08/01/19 09:05 08/01/19 09:05 08/01/19 09:05 Oxygen Flow Rate (L/min) 4 Oxygen Delivery Method Nasal Cannula Weight: 81 kg Body Mass Index (BMI) 23.8 Intake and Output for Last 24 Hours 07/30/19 07/31/19 08/01/19 23:59 23:59 23:59 Intake Total 1243.75 / 1243.75 2213.75 / 2213.75 1075 / 1075 Output Total 150 / 150 Balance 1243.75 / 1243.75 2213.75 / 2213.75 925 / 925 General: Alert, Oriented x3, Cooperative, No apparent distress, - - Appears stated age. No conversational dyspnea. HEENT: Atraumatic, PERRLA, EOMI, Normocephalic, - - No scleral icterus or injection noted Oral: Moist Mucosa, No Gingival or Mucosal Lesions/ Ulcerations Neck: Supple, No JVD, No Nodes, Trachea Midline Lungs: No rhonchi, No wheeze, No rales, Diminished, - - Symmetric expansion. Cardiovascular: Regular rate, Regular Rhythm, Normal S1, Normal S2, No rub noted, No Gallop Abdomen: Bowel Sounds Present, Soft, Non Tender, Non-Distended Extremities: No clubbing, No cyanosis, No edema, Capillary Refill Less than 3 Seconds Skin: - - No changes from previous Musculoskeletal: No Tenderness to Palpation of Joints or Extremities Lymphatic: No Cervical, Supraclavicular, or Inguinal Adenopathy Neurological: Cranial nerves II-XII grossly intact, Neuro grossly intact, Motor Exam 5/5 strength throughout Psych/Mental Status: Alert and oriented to time, place, person, mood and affect Microbiology Past 72 Hours 07/25/19 12:05 Blood Culture (Wb) - Anticubital Left Blood Culture - Final No growth in 5 days. 07/25/19 11:59 Blood Culture (Wb) - Right Forearm Blood Culture - Final No growth in 5 days. Laboratory Results 07/31/19 11:47: POC Glucose 265 H 07/31/19 14:50: COVID-19 (CHARLIE) Pending 07/31/19 16:32: POC Glucose 177 H 07/31/19 21:43: POC Glucose 183 H 08/01/19 06:37: POC Glucose 163 H 08/01/19 07:15: WBC 4.6, RBC 3.29 L, Hgb 10.1 L, Hct 33.3 L, MCV 101.2 H, MCH 30.7, MCHC 30.3 L, RDW Std Deviation 52.7 H, RDW Coeff of Delia 14.3, Plt Count 202, MPV 10.4, Immature Gran % (Auto) 0.700, Neut % (Auto) 54.5, Lymph % (Auto) 25.8, [place] % (Auto) 9.6, Eos % (Auto) 9.0 H, Baso % (Auto) 0.4, Absolute Neuts (auto) 2.5, Absolute Lymphs (auto) 1.18, Nucleated RBC % 0 08/01/19 07:15: Sodium 137, Potassium 4.7, Chloride 100, Carbon Dioxide 34.0 H, Anion Gap 3 L, BUN 21 H, Creatinine 0.95, Estim Creat Clear Calc 59.95, Est GFR (MDRD) Af Amer 98, Est GFR (MDRD) Non-Af 81, BUN/Creatinine Ratio 22.2 H, Glucose 167 H, Calcium 8.5 Current Medications Acetaminophen (Tylenol) 650 mg PO Q6H PRN PRN PRN Reason: Pain Score 1-10/Temp > 100.7 F Last Admin: 07/30/19 21:51 Dose: 650 mg Documented by: Al Hydroxide/Mg Hydroxide (Mylanta Ii) 30 ml PO Q6H PRN PRN PRN Reason: Gastric Burning Albuterol Sulfate (Ventolin Aerosols) 2.5 mg INHALATION Q2H PRN PRN PRN Reason: SOB/Wheezing Amlodipine Besylate (Norvasc) 5 mg PO DAILY [facility] Last Admin: 08/01/19 09:07 Dose: 5 mg Documented by: Aspirin (Aspirin, Baby) 81 mg PO DAILY@0800 [facility] Last Admin: 08/01/19 09:07 Dose: 81 mg Documented by: Atorvastatin Calcium (Lipitor) 40 mg PO QHS [facility] Last Admin: 07/31/19 21:47 Dose: 40 mg Documented by: Calamine/Phenol (Calmoseptine Ointment) 1 applic TOPICAL BID [facility]; Protocol Last Admin: 08/01/19 09:08 Dose: 1 applic Documented by: Dextrose (D50w Syringe) 0 gm IV X1 PRN; Protocol PRN Reason: Hypoglycemia Enoxaparin Sodium (Lovenox) 40 mg SC DAILY@0600 [facility] Last Admin: 08/01/19 06:39 Dose: 40 mg Documented by: Gabapentin (Neurontin) 300 mg PO TID [facility] Last Admin: 08/01/19 06:40 Dose: 300 mg Documented by: Glimepiride (Amaryl) 1 mg PO DAILYCM [facility] Last Admin: 08/01/19 09:07 Dose: 1 mg Documented by: Glucagon () 1 mg IM .X1 PRN PRN Reason: Hypoglycemia Sodium Chloride () 250 mls @ 15 mls/hr IV .[id number] PRN PRN Reason: Saline Flush Last Infusion: 07/28/19 16:47 Dose: Infused Documented by: Sodium Chloride () 250 mls @ 15 mls/hr IV .[id number] PRN PRN Reason: Additional IVPB Infusion Sodium Chloride () 500 mls @ 15 mls/hr IV PRN PRN PRN Reason: Blood Transfusion Last Infusion: 07/27/19 20:40 Dose: Infused Documented by: Lactated Ringer's () 1,000 mls @ 75 mls/hr IV .[id number] [facility] Last Admin: 08/01/19 02:53 Dose: 75 mls/hr Documented by: Sodium Chloride () 1,000 mls @ 15 mls/hr IV .Q48H [facility] Last Admin: 07/31/19 16:56 Dose: Not Given Documented by: Insulin Glargine (Lantus (Bkc)) 10 units SC DAILY [facility] Last Admin: 08/01/19 09:08 Dose: 10 u Documented by: Insulin Human Lispro (Humalog Kwikpen (Bk)) 0 unit SC TIDAC [facility]; Protocol Last Admin: 08/01/19 06:40 Dose: 1 units Documented by: Ipratropium [place] (Atrovent) 0.5 mg INHALATION Q6HWA.RT [facility] Last Admin: 08/01/19 07:00 Dose: 0.5 mg Documented by: Melatonin (Melatonin) 3 mg PO QHS PRN PRN PRN Reason: Insomnia Metoprolol Tartrate (Lopressor (Beta Estevan)) 25 mg PO BID [facility] Last Admin: 08/01/19 09:07 Dose: 25 mg Documented by: Ondansetron HCl (Zofran) 4 mg IV Q8H PRN PRN PRN Reason: NAUSEA/VOMITING Pantoprazole Sodium (Protonix) 40 mg PO BID [facility] Last Admin: 08/01/19 09:07 Dose: 40 mg Documented by: Pioglitazone HCl (Actos) 45 mg PO DAILY [facility] Last Admin: 08/01/19 09:07 Dose: 45 mg Documented by: Potassium Chloride (K-Dur) 20 meq PO DAILYCM [facility] Last Admin: 08/01/19 09:07 Dose: 20 meq Documented by: Senna/Docusate Sodium (Senokot-S, Jesica-Colace) 2 tablet PO BID PRN PRN PRN Reason: Constipation Sodium Chloride () 10 - 40 ml IV UD PRN PRN Reason: SALINE FLUSH Last Admin: 07/31/19 06:52 Dose: 30 ml Documented by: Tamsulosin HCl (Flomax) 0.4 mg PO BID [facility] Last Admin: 08/01/19 09:07 Dose: 0.4 mg Documented by: Medical Necessity - Tobacco Use Smoking Status: Former smoker Assessment/Plan All Active Problems (Last Updated 07/26/19 @ 13:58 by Anneliese Cary) Hypotension (Acute) Anemia (Acute) Non-ST elevated myocardial infarction (non-STEMI) (Acute 07/25/19) Nonrheumatic aortic (valve) stenosis (Acute) History of coronary artery stent placement (Resolved) Acute and chronic respiratory failure (Resolved) Bronchitis (Resolved) RECOMMENDATIONS: 1. Increase activity as tolerated 2. Defer to cardiology for reinitiation of blood pressure medications. 3. Wean oxygen as tolerated. Walking oximetry prior to discharge 4. No indication for additional blood products at this time 5. Continue scheduled bronchodilator therapy. 6. Continue twice daily Protonix. 7. Okay to discharge from a pulmonary perspective with routine pulmonary follow-up IMPRESSIONS: 1. Distributive versus cardiogenic shock Resolved. Unclear etiology at this time. Patient did have elevated troponins consistent with a non-ST elevation [place]. Patient also had some worsening renal dysfunction in the setting of antihypertensive medications initially. Renal function has normalized and blood pressure has improved significantly. Relative adrenal insufficiency would be a consideration but blood pressures have responded appropriately with improvement in renal function. Patient did have relatively significant aortic stenosis noted on echocardiogram. Cardiac catheterization was not very indicative of etiology 2. Acute kidney injury Resolved. Likely prerenal in etiology with possible ATN due to hemodynamic instability. Continue current supportive measures as noted above. Monitor urine output. No current indication for renal replacement therapy. Likely okay to reinitiate blood pressure medications in a stepwise fashion. Defer to cardiology given patient's aortic stenosis for priority. Blood pressure is tolerating reinitiation of some medications now 3. Anemia The patient previously had a hemoglobin around 10 g/dL in mid June 2019. His hemoglobin has slowly trended down over the course of this hospitalization to a lon this morning of 7.7 g/dL. Patient responded well to blood transfusion. Recommend continuing twice daily PPI therapy. Blood counts have remained stable through the course of the hospitalization 4. Non-ST segment elevation [place] Cardiology is currently following. Echocardiogram was largely unrevealing, with the exception of diastolic dysfunction and aortic stenosis. Cardiac catheterization shows defects, but medical management was recommended. Patient with moderately severe aortic stenosis 5. History of severe COPD/chronic hypoxemic respiratory failure/recent admission for COVID pneumonia The patient does have known severe COPD and chronic supplemental oxygen dependency. He is on a triple therapy inhaler regimen on an outpatient basis. However, he does appear to be at his baseline from a respiratory perspective. Continue bronchodilator therapy as ordered. 6. Diabetes mellitus/hypertension/peripheral arterial disease/coronary artery disease/neuropathy Complicates care, management, recovery and prognosis. Continue sliding scale insulin coverage. Physical therapy to work with the patient. Inpatient E&M: 25525 Subs Hosp L2
[2019-08-01 11:45] LABS: Bedside Glucose 191 mg/dL (70-110)
--- NOTE | 2019-08-01 11:49 | CASEMGMT ---
[facility] notified that pt to go to [facility] at discharge, voices understanding. Allyssa POWELL CM
--- NOTE | 2019-08-01 12:52 | PCM.TXEXTCAR ---
- Diet 07/28/19 08:46 Diet: Carbohydrate Controlled Food consistency:: Regular Liquid Consistency:: Regular/Thin Type of Dietary Supplement:: Glucerna Shake Is pt able to select menu?: Yes - Routine Orders/Code Status Routine Lab Work: CBC - Mondays and PRN, BMP - Mondays and PRN Code Status: Full Code - Wound(s) R post forearm Wound Type: Skin Tear Left Elbow Wound Type: Skin Tear right radial Wound Type: Puncture - Therapies Physical Therapy: Eval and Treat Occupational Therapy: Eval and Treat - Allergies/Procedures Done in Hospital Allergies/Adverse Reactions: Allergies WORM MEDICATION Allergy (Uncoded 03/13/19 09:25) Hives 50 years ago. kids had got worms so the whole family needed to be treated for it. - Type of Care/Length of Stay Estimated LOS: Convalescent Care Less Than 30 days Type of Care Needed: Skilled Rehab Potential: Fair Prognosis: Good - Additional Orders/Day of Discharge Day of Discharge: 08/01/19 - Dietary and Speech Recommendations Dietitian Recommendations/Changes: Continue CHO controlled diet. Continue ONS w/ meals - Follow Up Care Primary Care Physician: Kevin Mcdowell III, MD [Primary Care Provider] - Within 2 Weeks Please Follow Up With: Garret eY DO - Pulmonology When: 09/22/2019, already scheduled Please Follow Up With: Idris Ye MD - Cardiology When: 1-2 months
--- NOTE | 2019-08-01 13:37 | PCM.PN.HOSP ---
Reason for Visit: shock Subjective: Feels well. no complaints. Vitals/I&O's: Vital Signs Temp Pulse Resp BP Pulse Ox 36.9 C 82 16 119/44 L 94 08/01/19 09:05 08/01/19 12:51 08/01/19 12:51 08/01/19 09:05 08/01/19 09:05 Oxygen Flow Rate (L/min) 4 Oxygen Delivery Method Nasal Cannula Weight: 81 kg Body Mass Index (BMI) 23.8 Intake and Output for Last 24 Hours 07/30/19 07/31/19 08/01/19 23:59 23:59 23:59 Intake Total 1243.75 / 1243.75 2213.75 / 2213.75 1075 / 1075 Output Total 150 / 150 Balance 1243.75 / 1243.75 2213.75 / 2213.75 925 / 925 General: Alert, No apparent distress HEENT: Atraumatic, Normocephalic Oral: Moist Mucosa, No Gingival or Mucosal Lesions/ Ulcerations Neck: No Nodes, Thyroid Normal Size and Texture Lungs: Clear to auscultation, Normal air movement, No rhonchi, No wheeze, No rales Cardiovascular: Regular rate, Regular Rhythm, Normal S1, Normal S2 Abdomen: Bowel Sounds Present, Soft, Non Tender, Non-Distended Extremities: No edema, No Calf Tenderness Psych/Mental Status: Normal Affect, Appropriate Microbiology Past 72 Hours 07/25/19 12:05 Blood Culture (Wb) - Anticubital Left Blood Culture - Final No growth in 5 days. 07/25/19 11:59 Blood Culture (Wb) - Right Forearm Blood Culture - Final No growth in 5 days. Laboratory Results 07/29/19 16:17: COVID-19 (CHARLIE) Not Detected 07/31/19 14:50: COVID-19 (CHARLIE) Pending 07/31/19 14:50: COVID-19 (CHARLIE) Cancelled 07/31/19 16:32: POC Glucose 177 H 07/31/19 21:43: POC Glucose 183 H 08/01/19 06:37: POC Glucose 163 H 08/01/19 07:15: WBC 4.6, RBC 3.29 L, Hgb 10.1 L, Hct 33.3 L, MCV 101.2 H, MCH 30.7, MCHC 30.3 L, RDW Std Deviation 52.7 H, RDW Coeff of Delia 14.3, Plt Count 202, MPV 10.4, Immature Gran % (Auto) 0.700, Neut % (Auto) 54.5, Lymph % (Auto) 25.8, [place] % (Auto) 9.6, Eos % (Auto) 9.0 H, Baso % (Auto) 0.4, Absolute Neuts (auto) 2.5, Absolute Lymphs (auto) 1.18, Nucleated RBC % 0 08/01/19 07:15: Sodium 137, Potassium 4.7, Chloride 100, Carbon Dioxide 34.0 H, Anion Gap 3 L, BUN 21 H, Creatinine 0.95, Estim Creat Clear Calc 59.95, Est GFR (MDRD) Af Amer 98, Est GFR (MDRD) Non-Af 81, BUN/Creatinine Ratio 22.2 H, Glucose 167 H, Calcium 8.5 08/01/19 11:40: POC Glucose 191 H Current Medications Acetaminophen (Tylenol) 650 mg PO Q6H PRN PRN PRN Reason: Pain Score 1-10/Temp > 100.7 F Last Admin: 07/30/19 21:51 Dose: 650 mg Documented by: Al Hydroxide/Mg Hydroxide (Mylanta Ii) 30 ml PO Q6H PRN PRN PRN Reason: Gastric Burning Albuterol Sulfate (Ventolin Aerosols) 2.5 mg INHALATION Q2H PRN PRN PRN Reason: SOB/Wheezing Amlodipine Besylate (Norvasc) 5 mg PO DAILY [facility] Last Admin: 08/01/19 09:07 Dose: 5 mg Documented by: Aspirin (Aspirin, Baby) 81 mg PO DAILY@0800 [facility] Last Admin: 08/01/19 09:07 Dose: 81 mg Documented by: Atorvastatin Calcium (Lipitor) 40 mg PO QHS [facility] Last Admin: 07/31/19 21:47 Dose: 40 mg Documented by: Calamine/Phenol (Calmoseptine Ointment) 1 applic TOPICAL BID [facility]; Protocol Last Admin: 08/01/19 09:08 Dose: 1 applic Documented by: Dextrose (D50w Syringe) 0 gm IV X1 PRN; Protocol PRN Reason: Hypoglycemia Enoxaparin Sodium (Lovenox) 40 mg SC DAILY@0600 [facility] Last Admin: 08/01/19 06:39 Dose: 40 mg Documented by: Gabapentin (Neurontin) 300 mg PO TID [facility] Last Admin: 08/01/19 06:40 Dose: 300 mg Documented by: Glimepiride (Amaryl) 1 mg PO DAILYCM [facility] Last Admin: 08/01/19 09:07 Dose: 1 mg Documented by: Glucagon () 1 mg IM .X1 PRN PRN Reason: Hypoglycemia Sodium Chloride () 250 mls @ 15 mls/hr IV .[id number] PRN PRN Reason: Saline Flush Last Infusion: 07/28/19 16:47 Dose: Infused Documented by: Sodium Chloride () 250 mls @ 15 mls/hr IV .[id number] PRN PRN Reason: Additional IVPB Infusion Sodium Chloride () 500 mls @ 15 mls/hr IV PRN PRN PRN Reason: Blood Transfusion Last Infusion: 07/27/19 20:40 Dose: Infused Documented by: Lactated Ringer's () 1,000 mls @ 75 mls/hr IV .[id number] [facility] Last Admin: 08/01/19 02:53 Dose: 75 mls/hr Documented by: Sodium Chloride () 1,000 mls @ 15 mls/hr IV .Q48H [facility] Last Admin: 07/31/19 16:56 Dose: Not Given Documented by: Insulin Glargine (Lantus (Bk)) 10 units SC DAILY [facility] Last Admin: 08/01/19 09:08 Dose: 10 u Documented by: Insulin Human Lispro (Humalog Kwikpen (Bk)) 0 unit SC TIDAC [facility]; Protocol Last Admin: 08/01/19 11:41 Dose: 1 units Documented by: Ipratropium [place] (Atrovent) 0.5 mg INHALATION Q6HWA.RT [facility] Last Admin: 08/01/19 12:51 Dose: 0.5 mg Documented by: Melatonin (Melatonin) 3 mg PO QHS PRN PRN PRN Reason: Insomnia Metoprolol Tartrate (Lopressor (Beta Estevan)) 25 mg PO BID [facility] Last Admin: 08/01/19 09:07 Dose: 25 mg Documented by: Ondansetron HCl (Zofran) 4 mg IV Q8H PRN PRN PRN Reason: NAUSEA/VOMITING Pantoprazole Sodium (Protonix) 40 mg PO BID [facility] Last Admin: 08/01/19 09:07 Dose: 40 mg Documented by: Pioglitazone HCl (Actos) 45 mg PO DAILY [facility] Last Admin: 08/01/19 09:07 Dose: 45 mg Documented by: Potassium Chloride (K-Dur) 20 meq PO DAILYCM [facility] Last Admin: 08/01/19 09:07 Dose: 20 meq Documented by: Senna/Docusate Sodium (Senokot-S, Jesica-Colace) 2 tablet PO BID PRN PRN PRN Reason: Constipation Sodium Chloride () 10 - 40 ml IV UD PRN PRN Reason: SALINE FLUSH Last Admin: 07/31/19 06:52 Dose: 30 ml Documented by: Tamsulosin HCl (Flomax) 0.4 mg PO BID [facility] Last Admin: 08/01/19 09:07 Dose: 0.4 mg Documented by: STROKE Vital Signs/Narrative: Vital Signs Pulse Resp 08/01/19 12:51 82 16 Medical Necessity - Tobacco Use Smoking Status: Former smoker Assessment/Plan All Active Problems (Last Updated 07/26/19 @ 13:58 by Anneliese Cary) Hypotension (Acute) Anemia (Acute) Non-ST elevated myocardial infarction (non-STEMI) (Acute 07/25/19) Nonrheumatic aortic (valve) stenosis (Acute) History of coronary artery stent placement (Resolved) Acute and chronic respiratory failure (Resolved) Bronchitis (Resolved) 1. Shock resolved, may be distributive: Patient has been afebrile with no history of fever at home. Chest x-ray individually reviewed and shows no acute infiltrate. Lactic acid is elevated. Blood cultures x2 and urine culture negative. UA is negative of pyuria or hematuria, LE and nitrite are negative. 07/26: On vasopressor support. Right arm PICC line. Patient is on empiric antibiotics. No fever since admission. Had vancomycin on day of admission. 07/27: Remains on vasopressor. Blood cultures x2- for 48 hours. Urine culture shows no growth. Patient did not had fever since admission. Repeat chest x-ray shows minimal basilar subsegmental atelectasis versus scarring. Emphysema. Can discontinue IV antibiotic 07/28: Vasopressor was discontinued on 07/27. No fever off antibiotic. 2. Non-STEMI history of coronary artery status post stents: Troponins are elevated, maximum 1.95. On IV heparin drip, baby aspirin, atorvastatin. Patient is in shock therefore no antihypertensive medication or beta-estevan. EKG shows no ischemic changes. Seen by vice president planning. 07/26: Echo shows stage I diastolic dysfunction, EF 65%. Moderate aortic stenosis, mean AV gradient 36 mmHg.07/27: 07/28 Left heart catheter showed fixed RCA development 3. FER Creatinine peaked at 3.06, now 1 Patient had hyperkalemia cocktail and was given Kayexalate. Repeat K5.5. Patient has good urine output, about 2.5 L on 07/24. Creatinine is improved 07/26: Urine output 4.6 L last 24 hours. Positive fluid balance about 1 L. Improvement in BUN and creatinine. Electrolytes within normal limit. 07/27: Improvement in BUN/creatinine, creatinine 1.1 on baseline. Good urine output. Positive about 600 mL fluid balance 07/28: Kidney function on baseline. 4. Severe COPD, chronic hypoxic respiratory failure with recent COVID-19 pneumonia in June 2019: On a scheduled nebulization. Incentive spirometry, Pap baseline 3 to 4 L/min currently on baseline. FEV1 37% in 5. 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 07/26: Glucose level elevated will titrate up insulin dose. 07/27: Blood sugars have improved. 6. Acute anemia on baseline anemia of chronic disease, most likely from IV heparin/anticoagulant and acute thrombocytopenia possible secondary to acute inflammation: Platelet count is decreased 110 at baseline about 200s. Patient hemoglobin is generally maintained 10 to 12 g%. Most recent 8.6. Monitor CBC 07/26: H&H dropped to 7.7 from 9.3. Monitor CBC. On Protonix twice daily. Transfusion of 2 units of PRBC 07/27: Posttransfusion H&H 10.3. 7. ABLA s/p 2 units PRBCs Hg currently stable on empiric PPI Other comorbidities include hypertension, peripheral arterial disease, bilateral carotid stenosis, anemia of chronic disease, thrombocytopenia, BPH DVT prophylaxis: On Lovenox 40 mg subcu daily Debility: awaiting on authorization from insurance for TCU. Apparently needs 2 negative COVID-19 tests. Final results won't be back for another 48h. Inpatient E&M: [id number] Subs Hosp L2
--- NOTE | 2019-08-01 14:18 | DS.PCM_ITS ---
Discharge Date and Diagnosis Date of Admission: 07/25/19 Date of Discharge: 08/01/19 - Primary Discharge Diagnosis Acute Problems: 1. Shock * resolved, may be distributive: Patient has been afebrile with no history of fever at home. Chest x-ray individually reviewed and shows no acute infiltrate. Lactic acid is elevated. * Blood cultures x2 and urine culture negative. UA is negative of pyuria or hematuria, LE and nitrite are negative. * 07/26: On vasopressor support. Right arm PICC line. Patient is on empiric antibiotics. No fever since admission. Had vancomycin on day of admission. * 07/27: Remains on vasopressor. Blood cultures x2- for 48 hours. Urine culture shows no growth. Patient did not had fever since admission. Repeat chest x- ray shows minimal basilar subsegmental atelectasis versus scarring. Emphysema. Can discontinue IV antibiotic * 07/28: Vasopressor was discontinued on 07/27. No fever off antibiotic. 2. Non-STEMI history of coronary artery status post stents: * Troponins are elevated, maximum 1.95. On IV heparin drip, baby aspirin, atorvastatin. Patient is in shock therefore no antihypertensive medication or beta-estevan. * EKG shows no ischemic changes. Seen by [facility] compliance coordinator. * 07/26: Echo shows stage I diastolic dysfunction, EF 65%. Moderate aortic stenosis, mean AV gradient 36 mmHg.07/27: * 07/28 Left heart catheter showed fixed RCA development 3. FER * Creatinine peaked at 3.06, now 1 * Patient had hyperkalemia cocktail and was given Kayexalate. Repeat K5.5. Patient has good urine output, about 2.5 L on 07/24. Creatinine is improved * 07/26: Urine output 4.6 L last 24 hours. Positive fluid balance about 1 L. Improvement in BUN and creatinine. Electrolytes within normal limit. * 07/27: Improvement in BUN/creatinine, creatinine 1.1 on baseline. Good urine output. Positive about 600 mL fluid balance * 07/28: Kidney function on baseline. 4. Severe COPD, chronic hypoxic respiratory failure with recent COVID-19 pneumonia in June 2019: * On a scheduled nebulization. Incentive spirometry, Pap baseline 3 to 4 L/min currently on baseline. FEV1 37% in 5. 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 * 07/26: Glucose level elevated will titrate up insulin dose. * 8: Blood sugars have improved. 6. Acute anemia on baseline anemia of chronic disease, * most likely from IV heparin/anticoagulant and acute thrombocytopenia possible secondary to acute inflammation: Platelet count is decreased 110 at baseline about 200s. Patient hemoglobin is generally maintained 10 to 12 g%. Most recent 8.6. Monitor CBC * 07/26: H&H dropped to 7.7 from 9.3. Monitor CBC. On Protonix twice daily. Transfusion of 2 units of PRBC * 07/27: Posttransfusion H&H 10.3. 7. 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 Electronically Signed: Renan Domínguez, at 13:16 EDT , Service support , Chest X-Ray 07/25/19 12:45 IMPRESSION: Mild residual increased markings at the left lung base. Electronically Signed: Renan Domínguez, at 13:02 EDT , Service support , Chest X-Ray 07/26/19 05:55 IMPRESSION: Minimal basilar subsegmental atelectasis versus scarring. Emphysema. at 0749 Reported and signed by: Farzana Bernard MD Electronically Signed: Farzana Bernard MD at 7:48 EDT Tel , Service support , Operations: None Procedures: 2-D Echocardiogram - Normal LV size. Left ventricular systolic function is normal. The estimated ejection fraction is 65 %. Stage 1 diastolic dysfunction. Mean aortic valve gradient 36 mmHg. Moderate aortic stenosis. Contrast injection was performed., Cardiac catheterization - LEFT HEART ASSESSMENT Left Ventricular Ejection Fraction: by Echo 60 % Normal LV wall motion Normal Left Ventricular systolic function LEFT MAIN: Mild calcification, Non-obstructive, Moderate calcification LEFT ANTERIOR DESCENDING ARTERY: Mild luminal irregularities less than 30% PROX LAD: Previously placed stent is patent CIRCUMFLEX ARTERY: Moderate luminal irregularities up to 50% RIGHT CORONARY ARTERY: PROX RCA: 90 % Stenosis VALVE FINDINGS: Aortic Valve Calcification - moderate Aortic Valve Stenosis - moderate Summary of Care Provided: The patient is a 83 year old M presents with shock. Etiology systolic was never identified but the patient overall did well. Patient also had a non-extubation myocardial infarction. Troponins were elevated and patient underwent a left heart catheterization that showed a fixed RCA lesion. So the likely felt to be demand ischemia from the shock. Patient did have acute kidney injury that did improved and patient is back to baseline. Patient did have acute anemia and did require 2 units of packed red blood cells. Patient has remained stable during the course of his hospitalization. Plan is for the patient to go to the transitional care unit. Patient was checked for COVID-19 and it was - x 2 so that he can go to the transitional care unit. [] - Physical Exam Vitals/I&O's: Vital Signs Temp Pulse Resp BP Pulse Ox 36.9 C 82 16 119/44 L 94 08/01/19 09:05 08/01/19 12:51 08/01/19 12:51 08/01/19 09:05 08/01/19 09:05 Oxygen Flow Rate (L/min) 4 Oxygen Delivery Method Nasal Cannula Weight: 81 kg Body Mass Index (BMI) 23.8 Intake and Output for Last 24 Hours 07/30/19 07/31/19 08/01/19 23:59 23:59 23:59 Intake Total 1243.75 / 1243.75 2213.75 / 2213.75 1075 / 1075 Output Total 150 / 150 Balance 1243.75 / 1243.75 2213.75 / 2213.75 925 / 925 Microbiology Past 72 Hours 07/25/19 12:05 Blood Culture (Wb) - Anticubital Left Blood Culture - Final No growth in 5 days. 07/25/19 11:59 Blood Culture (Wb) - Right Forearm Blood Culture - Final No growth in 5 days. Laboratory Results 07/29/19 16:17: COVID-19 (CHARLIE) Not Detected 07/31/19 14:50: COVID-19 (CHARLIE) Not Detected 07/31/19 14:50: COVID-19 (CHARLIE) Cancelled 07/31/19 16:32: POC Glucose 177 H 07/31/19 21:43: POC Glucose 183 H 08/01/19 06:37: POC Glucose 163 H 08/01/19 07:15: WBC 4.6, RBC 3.29 L, Hgb 10.1 L, Hct 33.3 L, MCV 101.2 H, MCH 30.7, MCHC 30.3 L, RDW Std Deviation 52.7 H, RDW Coeff of Delia 14.3, Plt Count 202, MPV 10.4, Immature Gran % (Auto) 0.700, Neut % (Auto) 54.5, Lymph % (Auto) 25.8, Trigg % (Auto) 9.6, Eos % (Auto) 9.0 H, Baso % (Auto) 0.4, Absolute Neuts (auto) 2.5, Absolute Lymphs (auto) 1.18, Nucleated RBC % 0 08/01/19 07:15: Sodium 137, Potassium 4.7, Chloride 100, Carbon Dioxide 34.0 H, Anion Gap 3 L, BUN 21 H, Creatinine 0.95, Estim Creat Clear Calc 59.95, Est GFR (MDRD) Af Amer 98, Est GFR (MDRD) Non-Af 81, BUN/Creatinine Ratio 22.2 H, Glucose 167 H, Calcium 8.5 08/01/19 11:40: POC Glucose 191 H Current Medications Acetaminophen (Tylenol) 650 mg PO Q6H PRN PRN PRN Reason: Pain Score 1-10/Temp > 100.7 F Last Admin: 07/30/19 21:51 Dose: 650 mg Documented by: Al Hydroxide/Mg Hydroxide (Mylanta Ii) 30 ml PO Q6H PRN PRN PRN Reason: Gastric Burning Albuterol Sulfate (Ventolin Aerosols) 2.5 mg INHALATION Q2H PRN PRN PRN Reason: SOB/Wheezing Amlodipine Besylate (Norvasc) 5 mg PO DAILY [facility] Last Admin: 08/01/19 09:07 Dose: 5 mg Documented by: Aspirin (Aspirin, Baby) 81 mg PO DAILY@0800 [facility] Last Admin: 08/01/19 09:07 Dose: 81 mg Documented by: Atorvastatin Calcium (Lipitor) 40 mg PO QHS [facility] Last Admin: 07/31/19 21:47 Dose: 40 mg Documented by: Calamine/Phenol (Calmoseptine Ointment) 1 applic TOPICAL BID [facility]; Protocol Last Admin: 08/01/19 09:08 Dose: 1 applic Documented by: Dextrose (D50w Syringe) 0 gm IV X1 PRN; Protocol PRN Reason: Hypoglycemia Enoxaparin Sodium (Lovenox) 40 mg SC DAILY@0600 [facility] Last Admin: 08/01/19 06:39 Dose: 40 mg Documented by: Gabapentin (Neurontin) 300 mg PO TID [facility] Last Admin: 08/01/19 06:40 Dose: 300 mg Documented by: Glimepiride (Amaryl) 1 mg PO DAILYCM [facility] Last Admin: 08/01/19 09:07 Dose: 1 mg Documented by: Glucagon () 1 mg IM .X1 PRN PRN Reason: Hypoglycemia Sodium Chloride () 250 mls @ 15 mls/hr IV .[id number] PRN PRN Reason: Saline Flush Last Infusion: 07/28/19 16:47 Dose: Infused Documented by: Sodium Chloride () 250 mls @ 15 mls/hr IV .[id number] PRN PRN Reason: Additional IVPB Infusion Sodium Chloride () 500 mls @ 15 mls/hr IV PRN PRN PRN Reason: Blood Transfusion Last Infusion: 07/27/19 20:40 Dose: Infused Documented by: Lactated Ringer's () 1,000 mls @ 75 mls/hr IV .[id number] [facility] Last Admin: 08/01/19 02:53 Dose: 75 mls/hr Documented by: Sodium Chloride () 1,000 mls @ 15 mls/hr IV .Q48H [facility] Last Admin: 07/31/19 16:56 Dose: Not Given Documented by: Insulin Glargine (Lantus ([facility])) 10 units SC DAILY [facility] Last Admin: 08/01/19 09:08 Dose: 10 u Documented by: Insulin Human Lispro (Humalog Kwikpen ([facility])) 0 unit SC TIDAC [facility]; Protocol Last Admin: 08/01/19 11:41 Dose: 1 units Documented by: Ipratropium [place] (Atrovent) 0.5 mg INHALATION Q6HWA.RT [facility] Last Admin: 08/01/19 12:51 Dose: 0.5 mg Documented by: Melatonin (Melatonin) 3 mg PO QHS PRN PRN PRN Reason: Insomnia Metoprolol Tartrate (Lopressor (Beta Estevan)) 25 mg PO BID [facility] Last Admin: 08/01/19 09:07 Dose: 25 mg Documented by: Ondansetron HCl (Zofran) 4 mg IV Q8H PRN PRN PRN Reason: NAUSEA/VOMITING Pantoprazole Sodium (Protonix) 40 mg PO BID [facility] Last Admin: 08/01/19 09:07 Dose: 40 mg Documented by: Pioglitazone HCl (Actos) 45 mg PO DAILY [facility] Last Admin: 08/01/19 09:07 Dose: 45 mg Documented by: Potassium Chloride ([facility]Dur) [facility] Last Admin: 08/01/19 09:07 Dose: 20 meq Documented by: Senna/Docusate Sodium (Senokot-S, Jesica-Colace) 2 tablet PO BID PRN PRN PRN Reason: Constipation Sodium Chloride () 10 - 40 ml IV UD PRN PRN Reason: SALINE FLUSH Last Admin: 07/31/19 06:52 Dose: 30 ml Documented by: Tamsulosin HCl (Flomax) 0.4 mg PO BID [facility] Last Admin: 08/01/19 09:07 Dose: 0.4 mg Documented by: Discharge Diet: Low fat/ Low Cholesterol Home Medications: Medications to take at Discharge tiotropium bromide 18 mcg capsule with inhalation device 18 mcg INHALATION DAILY #30 inh 03/13/19 Pioglitazone [Actos] 45 mg PO DAILY 07/01/19 Tamsulosin HCl [Flomax] 0.4 mg PO BID #120 cap 05/19/20 Gabapentin [Neurontin] 300 mg PO TID 07/25/19 Glimepiride [Amaryl] 1 mg PO DAILY 07/25/19 Acetaminophen [Tylenol Tablet] 650 mg PO Q6H PRN PRN tab 08/01/19 Amlodipine [Norvasc] 5 mg PO DAILY tab 08/01/19 Aspirin [Aspirin, Baby] 81 mg PO DAILY@0800 tab.chew 08/01/19 Atorvastatin Calcium [Lipitor] 40 mg PO QHS tab 08/01/19 Insulin Glargine [Lantus SoloStar Pen] 10 units SUBCUT DAILY pen 08/01/19 Insulin Lispro [Humalog KwikPen] See Protocol SUBCUT TIDAC insuln.pen 08/01/19 Melatonin 3 mg PO QHS PRN PRN tab 08/01/19 Metoprolol Tartrate [Lopressor (beta estevan)] 25 mg PO BID tab 08/01/19 Pantoprazole Sodium [Protonix] 40 mg PO BID tab 08/01/19 Senna/Docusate Sodium [Senokot-S] 2 tab PO BID PRN PRN tab 08/01/19 Primary Care Physician: Kevin Mcdowell III, MD [Primary Care Provider] - Within 2 Weeks Please Follow Up With: Garret Ye DO - Pulmonology When: 09/22/2019, already scheduled Please Follow Up With: Idris Ye MD - Cardiology When: 1-2 months Disposition: Nursing Home facility Minutes spent on discharge:: 35 Patient Condition:: Fair Medical Necessity - Tobacco Use Smoking Status: Former smoker Meaningful Use Info Meaningful Use Diagnoses (Choose all that apply): None applicable Inpatient E&M: 41720 Disch Hosp
--- NOTE | 2019-08-01 14:40 | CASEMGMT ---
Social Work Pt ready for discharge on this date and plans to transfer to TCU. SW met with pt and informed and pt is agreeable. With pt permission, phone call to pt son Brandon and informed of discharge plan. Orders faxed to TCU and Tomasa notified that pt is ready for d/c and has had two negative Covid Tests. Nursing made aware. JONI Richardson
== END 2019-08-01 15:55 | disposition skilled nursing facility (03) | DRG 281 ==
LOC: ED 14:11 → PCU 15:01 → ICU 07-26 03:32 → PCU 07-28 06:50 → ICU 07-29 13:32 → PCU 07-30 07:19
PROVIDERS: Family Medicine; Internal Medicine; Internal Medicine Critical Care Medicine; Admitting Provider Internal Medicine; Emergency Provider Emergency Medicine; PCP Family Medicine
DX: R57.9 Shock, unspecified (principal); I21.4 Non-ST elevation (NSTEMI) myocardial infarction; N17.9 Acute kidney failure, unspecified; E87.2 Acidosis; E87.1 Hypo-osmolality and hyponatremia; J44.1 Chronic obstructive pulmonary disease with (acute) exacerbation; J96.11 Chronic respiratory failure with hypoxia; D62 Acute posthemorrhagic anemia; E87.5 Hyperkalemia; E11.40 Type 2 diabetes mellitus with diabetic neuropathy, unspecified; E11.51 Type 2 diabetes mellitus with diabetic peripheral angiopathy without gangrene; I25.10 Atherosclerotic heart disease of native coronary artery without angina pectoris; D69.6 Thrombocytopenia, unspecified; D63.8 Anemia in other chronic diseases classified elsewhere; N40.0 Benign prostatic hyperplasia without lower urinary tract symptoms; I35.0 Nonrheumatic aortic (valve) stenosis; E11.22 Type 2 diabetes mellitus with diabetic chronic kidney disease; I12.9 Hypertensive chronic kidney disease with stage 1 through stage 4 chronic kidney disease, or unspecified chronic kidney disease; N18.3 Chronic kidney disease, stage 3 (moderate); Z87.891 Personal history of nicotine dependence; Z87.01 Personal history of pneumonia (recurrent); Z99.81 Dependence on supplemental oxygen; S51.011A Laceration without foreign body of right elbow, initial encounter; W19.XXXA Unspecified fall, initial encounter; Z90.49 Acquired absence of other specified parts of digestive tract; Z95.5 Presence of coronary angioplasty implant and graft
CPT/HCPCS: 36415; 36569; 70450; 71045; 80048; 80053; 80202; 81001; 82533; 82962; 83605; 83735; 84145; 84443; 84484; 85014; 85018; 85025; 85027; 85610; 85730; 86644; 86850; 86900; 86901; 86920; 86922; 87040; 87086; 87635; 93005; 93306; 93454; 94640; 97110; 97116; 97162; 97166; 97530; 97535; 99152; 99251; 99285; G2023; J7030; J7040; J7050; J7120; P9016; Q9957; Q9967; A4216; C1769; C1894; C8929; G0463; J0610; U0003

== ENCOUNTER 2019-08-01 16:02 | Inpatient (IN) | payer MEDICARE, OTHER, SELFPAY ==
[2019-07-25 17:28] VITALS: BMI 23.8
[2019-08-01 16:06] VITALS: BP 108/60; PULSE 79; RESP 16; TEMP 36.7; O2SAT 96; BMI 26.5
[2019-08-01] MEDS: Menthol/Lanolin/Calamine/Znox 113 GM Tube 1 APPLIC TOPICAL (17:28)
[2019-08-01] MEDS: Tamsulosin HCl 0.4 MG Capsule PO (17:30)
[2019-08-01] MEDS: Glucerna Shake 120 ML LIQUID PO (17:30)
[2019-08-01] MEDS: Pantoprazole Sodium 40 MG Tablet PO (17:30)
[2019-08-01 17:43] VITALS: BP 108/60; PULSE 79
[2019-08-01] MEDS: Metoprolol Tartrate 25 MG Tablet PO (17:43)
[2019-08-01] MEDS: Nystatin Powder 15gm Bottle 1 APPLIC TOPICAL (18:13)
--- NOTE | 2019-08-01 19:59 | HP.PCM_ITS ---
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 07/25/2019 The patient is a 83 year old Male with below past medical history presented to [facility] Emergency Department with generalized weakness, fall, shortness of breath. 07/25/2019 CT brain chronic involutional changes of brain. 07/25/2019 EKG sinus tachycardia with first degree AV block, left axis deviation. 07/25/2019 Chest X-ray left base increased markings. Generalized weakness, unable to walk, weakness of legs. Hit head, short of breath, Pulsox 80's on home oxygen. 3 blood pressure medications cut in 2 recently. 07/01/2019 - 07/08/2019 Hospitalized for COVID positive pneumonia. Albuterol, Atrovent aerosol given. Hemoglobin 9.3, Platelet 110. K 6.4, BUN 69, Cr 3.06, Troponin 0.621, Lactic Acid 4.8. Blood cultures sent. Zosyn, Vancomycin, IV fluids given. 07/25/2019 Admit to Hospital. Rule out sepsis, IV Fluids, Zosyn, Vancomycin. IV Fluids for acute kidney injury. Hold potassium for hyperkalemia. Trend Troponin for elevated troponin. 07/25/2019 Echo Normal LV size. LV systolic function normal. EF 65%. Stage 1 diastolic dysfunction. Moderate aortic stenosis. 07/26/2019 Dr. Ye continue pressors, medical treatment of hyperkalemia. continue empiric antibiotics, Bronchodilators, wean oxygen. 07/26/2019 Dr. Ye considered heart cath. 07/28/2019 Stop antibiotics, stop pressors. 07/29/2019 Left heart catheterization showed right coronary artery stenosis, recommended medical therapy. Acute kidney injury resolved. Hyperkalemia resolved with Kayexalate. Insulin titrated for Diabetes Mellitus II. Transfused 2 units PRBC for acute anemia. 08/01/2019 Admit to TCU with debility, here for rehabilitation, strengthening, prior to discharge home with . Past Medical History Past Medical History (Chronic Problems): Chronic Problems (Last Updated 07/26/19 @ 13:58 by Anneliese Cary) Coronary artery disease (Chronic) Hypertension (Chronic) Hyperlipidemia (Chronic) Diabetes mellitus (Chronic) Edema (Chronic) Hypokalemia (Chronic) BPH (benign prostatic hyperplasia) (Chronic) Diabetic neuropathy (Chronic) PAOD (peripheral arterial occlusive disease) (Chronic) COVID-19 (Chronic 07/01/19) Chronic kidney disease (CKD) (Chronic) Atherosclerotic heart disease of [place] coronary artery without angina pectoris (Chronic) Carotid stenosis, bilateral (Chronic) Peripheral vascular occlusive disease (Chronic) Dyslipidemia (Chronic) Essential (primary) hypertension (Chronic) DM type 2 (diabetes mellitus, type 2) (Chronic) COPD (chronic obstructive pulmonary disease) (Chronic) FEV1 37% (01/09/2019) Chronic respiratory failure with hypoxia (Chronic) Medical History: Medical History (Last Updated 07/26/19 @ 13:58 by Anneliese Cary) COVID-19 (Chronic) Onset Date: 07/01/19 U07.1 Chronic kidney disease (CKD) (Chronic) N18.9 Anemia (Acute) D64.9 Atherosclerotic heart disease of [place] coronary artery without angina pectoris (Chronic) I25.10 Carotid stenosis, bilateral (Chronic) I65.23 Peripheral vascular occlusive disease (Chronic) I73.9 Dyslipidemia (Chronic) E78.5 Essential (primary) hypertension (Chronic) I10 DM type 2 (diabetes mellitus, type 2) (Chronic) E11.9 COPD (chronic obstructive pulmonary disease) (Chronic) J44.9 FEV1 37% (01/09/2019) Chronic respiratory failure with hypoxia (Chronic) J96.11 Acute and chronic respiratory failure (Resolved) J96.20 Bronchitis (Resolved) J40 Community acquired bacterial pneumonia J15.9 History of pneumonia Z87.01 COPD exacerbation (Inactive) J44.1 Hypoxia (Inactive) R09.02 Allergies WORM MEDICATION Allergy (Uncoded 03/13/19 09:25) Hives 50 years ago. kids had got worms so the whole family needed to be treated for it. Home Medications: Ambulatory Orders Medication Instructions Recorded tiotropium bromide 18 mcg capsule 18 mcg INHALATION DAILY #30 inh 03/13/19 with inhalation device Pioglitazone [Actos] 45 mg PO DAILY 07/01/19 Gabapentin [Neurontin] 300 mg PO TID 07/25/19 Glimepiride [Amaryl] 1 mg PO DAILY 07/25/19 Acetaminophen [Tylenol Tablet] 650 mg PO Q6H PRN PRN tab 08/01/19 Amlodipine [Norvasc] 5 mg PO DAILY 08/01/19 Aspirin [Aspirin, Baby] 81 mg PO DAILY@0800 08/01/19 Atorvastatin Calcium [Lipitor] 40 mg PO QHS 08/01/19 Insulin Glargine [Lantus SoloStar 10 units SUBCUT DAILY 08/01/19 Pen] Insulin Lispro [Humalog KwikPen] See Protocol SUBCUT TIDAC 08/01/19 Melatonin 3 mg PO QHS PRN PRN tab 08/01/19 Metoprolol Tartrate [Lopressor 25 mg PO BID 08/01/19 (beta estevan)] Pantoprazole Sodium [Protonix] 40 mg PO BID 08/01/19 Senna/Docusate Sodium [Senokot-S] 2 tab PO BID PRN PRN tab 08/01/19 Tamsulosin HCl [Flomax] 0.4 mg PO BID 08/01/19 Surgical History: Surgical History (Last Updated 07/30/19 @ 19:42 by Anneliese Cary) History of coronary artery stent placement (Resolved) Z95.5 History of left heart catheterization Onset Date: 07/29/19 Z98.890 Hx of appendectomy Z90.49 Surgical History: angioplasty - Cardiac stent., - - Carotid endarterectomy, bilateral femoral bypass Psychiatric History: No pertinent psych hx Lives: Spouse/ Significant Other Smoking Status: Former smoker Tobacco Use: Non-smoker Alcohol: None Drugs: None - *Family History Maternal Family History: Family History (Last Reviewed 07/25/19 @ 16:[address] Sindi Traylor DO) Other Family history unknown History Items: No pertinent history Paternal Family History: Family History (Last Reviewed 07/25/19 @ 16:[address] Sindi Traylor DO) Other Family history unknown History Items: No pertinent history Review of Systems Constitutional: Denies: Chills, Fever, Weight Change HEENT: Denies: Head Aches, Sinus Congestion, Sinus Drainage Cardiovascular: Denies: Chest Pain, Palpitations Respiratory: Denies: Cough, Shortness of breath at rest, Sputum production Gastrointestinal: Denies: Abdominal Pain, Nausea, Vomiting Genitourinary: Denies: Dysuria Musculoskeletal: Denies: Joint Pain, Joint Tenderness Skin: Denies: Rash, Wounds Neurological: Denies: Numbness, Tingling, Focal weakness Psychiatric: Denies: Anxiety, Depression, Homicidal Ideations, Suicidal Ideations Hematologic/ Lymphatic: Denies: Easy Bruising, Easy Bleeding VTE Information - Inpt Only VTE Present on Admission: No VTE Mechan Device Prophylaxis: Knee High SUHA Hose VTE Pharm Prophylaxis ordered?: No Reason prophylaxis not ordered:: Medical Contraindication Patient Problems: Active and Suspected Problems (Last Updated 07/26/19 @ 13:58 by Anneliese Cary) Debility (Acute) Fall (Acute) Shortness of breath (Acute) Acute kidney injury (Acute) Hyperkalemia (Acute) Septic shock (Acute) - Physical Exam Vitals/I&O's: Vital Signs Temp Pulse Resp BP Pulse Ox 98.1 F 79 16 108/60 96 08/01/19 16:06 08/01/19 17:43 08/01/19 16:06 08/01/19 17:43 08/01/19 16:06 Oxygen Flow Rate (L/min) 96 Oxygen Delivery Method Nasal Cannula Weight: 82.611 kg Body Mass Index (BMI) 26.5 Intake and Output for Last 24 Hours 07/30/19 07/31/19 08/01/19 23:59 23:59 23:59 Intake Total 240 / 240 Balance 240 / 240 General: Alert, Oriented x3, Cooperative HEENT: Atraumatic, PERRLA, EOMI, Normocephalic Neck: Supple, No JVD, Negative Carotid Bruits Lungs: Clear to auscultation, Normal air movement Cardiovascular: Regular rate, No murmurs Abdomen: Bowel Sounds Present, Soft, Non Tender Extremities: No edema, Capillary Refill Less than 3 Seconds Skin: No rashes, No breakdown Musculoskeletal: No Tenderness to Palpation of Joints or Extremities Neurological: Cranial nerves II-XII grossly intact Psych/Mental Status: Normal Affect, Appropriate Current Medications Acetaminophen (Tylenol) 650 mg PO Q6H PRN PRN PRN Reason: Pain Score 1-10/Temp > 100.7 F Amlodipine Besylate (Norvasc) 5 mg PO DAILY [facility] Aspirin (Aspirin, Baby) 81 mg PO DAILY@0800 [facility] Atorvastatin Calcium (Lipitor) 40 mg PO QHS [facility] Calamine/Phenol (Calmoseptine Ointment) 1 applic TOPICAL BID [facility]; Protocol Last Admin: 08/01/19 17:28 Dose: 1 applicatio Documented by: Gabapentin (Neurontin) 300 mg PO TID [facility] Glimepiride (Amaryl) 1 mg PO DAILY@0800 [facility] Insulin Glargine (Lantus (Bkc)) 10 units SC DAILY [facility] Melatonin (Melatonin) 3 mg PO QHS PRN PRN PRN Reason: Insomnia Metoprolol Tartrate (Lopressor (Beta Estevan)) 25 mg PO BID [facility] Last Admin: 08/01/19 17:43 Dose: 25 mg Documented by: Multi-Ingredient Cream (Eucerin) 1 applic TOPICAL DAILY PRN PRN; Protocol PRN Reason: DRY SKIN Nutritional Formula (Lactose Free) (Glucerna Shake) 120 ml PO TIDCM [facility] Last Admin: 08/01/19 17:30 Dose: 120 ml Documented by: Nystatin (Mycostatin Powder) 1 applic TOPICAL BID [facility]; Protocol Last Admin: 08/01/19 18:13 Dose: 1 applicatio Documented by: Pantoprazole Sodium (Protonix) 40 mg PO BID [facility] Last Admin: 08/01/19 17:30 Dose: 40 mg Documented by: Pioglitazone HCl (Actos) 45 mg PO DAILY [facility] Senna/Docusate Sodium (Senokot-S, [place]-Colace) 2 tablet PO BID PRN PRN PRN Reason: Constipation Tamsulosin HCl (Flomax) 0.4 mg PO BID [facility] Last Admin: 08/01/19 17:30 Dose: 0.4 mg Documented by: Tuberculin PPD (Tubersol, Aplisol, Ppd) 5 tu ID [id number] ONE Stop: 08/02/19 10:01 Tuberculin PPD (Tubersol, Aplisol, Ppd) 5 tu ID [id number] ONE Stop: 08/09/19 10:01 Umeclidinium [place] (Incruse Ellipta Inhaler) 1 puff IH DAILY [facility] Assessment/Plan All Active Problems (Last Updated 07/26/19 @ 13:58 by Anneliese Cary) Debility (Acute) Fall (Acute) Shortness of breath (Acute) Acute kidney injury (Acute) Hyperkalemia (Acute) Septic shock (Acute) Hypotension (Acute) Anemia (Acute) Non-ST elevated myocardial infarction (non-STEMI) (Acute 07/25/19) Nonrheumatic aortic (valve) stenosis (Acute) History of coronary artery stent placement (Resolved) Acute and chronic respiratory failure (Resolved) Bronchitis (Resolved) 83 year old male with below past medical history hospitalized for shortness of breath secondary to NSTEMI, complicated by acute kidney injury, hyperkalemia, anemia, admitted to TCU with debility, here for rehabilitation, strengthening, prior to discharge home with . * Debility - PT/OT. * Pain - Tylenol 1000MG Q6H PRN pain (1-10). * Bowel - Miralax 17GM daily, Senna/colace 1 tablet BID, Dulcolax 10MG VT daily PRN. * Adult immunization - Administer Prevnar 13, Pneumovax 23, Fluzone as appropriate. * DVT prophylaxis - Hold, anemia. * Hypertension - Metoprolol 25MG BID, Amlodipine 5MG daily. * Coronary Artery Disease - Metoprolol 25MG BID, Aspirin 81MG daily. * Hyperlipidemia - Atorvastatin 40MG QHS. * Diabetic polyneuropathy - Gabapentin 300MG TID. * Diabetes Mellitus II - Glimepiride 1MG daily, Lantus 10 units daily, Pioglitazone 45MG daily. * Nutrition - Glucerna Shake 120ML TID. * Insomnia - Melatonin 3MG QHS PRN. * Skin irritation - Calmoseptine BID, Eucerin topical daily PRN. * Tinea Corporis - Nystatin powder topical BID. * GERD - Pantoprazole 40MG BID. * BPH -Tamsulosin 0.4MG BID. * COPD - Incruse 1 puff daily.
[2019-08-01] MEDS: Atorvastatin Calcium 40 MG Tablet PO (21:02)
[2019-08-01] MEDS: Gabapentin 300 MG Capsule PO (21:02)
[2019-08-01 22:25] LABS: Bedside Glucose 214 mg/dL (70-110)
[2019-08-02] MEDS: Pioglitazone Hydrochloride 45 MG Tablet PO (05:11)
[2019-08-02] MEDS: Pantoprazole Sodium 40 MG Tablet PO ×2 (05:11→17:50)
[2019-08-02] MEDS: Gabapentin 300 MG Capsule PO ×3 (05:11→21:12)
[2019-08-02] MEDS: amLODIPine 5 MG Tablet PO (05:11)
[2019-08-02 05:12] VITALS: BP 110/68; PULSE 69
[2019-08-02] MEDS: Metoprolol Tartrate 25 MG Tablet PO ×2 (05:12→17:49)
[2019-08-02] MEDS: Tamsulosin HCl 0.4 MG Capsule PO ×2 (05:12→17:49)
[2019-08-02] MEDS: Menthol/Lanolin/Calamine/Znox 113 GM Tube 1 APPLIC TOPICAL ×2 (05:13→17:48)
[2019-08-02] MEDS: Polyethylene Glycol 3350 17 GM PACKET PO (05:14)
[2019-08-02] MEDS: Senna/Docusate Sodium 1 Tablet PO ×2 (05:15→17:50)
[2019-08-02] MEDS: Umeclidinium Bromide Inhaler 1 PUFF IH (05:17)
[2019-08-02 05:20] VITALS: PULSE 69; RESP 16; TEMP 36.2; O2SAT 94
[2019-08-02] MEDS: Nystatin Powder 15gm Bottle 1 APPLIC TOPICAL ×2 (05:20→18:03)
[2019-08-02 06:20] LABS: Bedside Glucose 190 mg/dL (70-110)
[2019-08-02] MEDS: Aspirin 81 MG TAB.CHEW PO (07:48)
[2019-08-02] MEDS: Glimepiride 1 MG Tablet PO (07:48)
[2019-08-02] MEDS: Glucerna Shake 120 ML LIQUID PO ×3 (07:51→17:49)
[2019-08-02 07:57] LABS: Absolute Lymphocyte Count 0.97 X10^3/uL (0.83-4.51); Basophil# 0.02 X10^3/uL; Basophil% 0.4 % (0-1); Eosinophil# 0.38 X10^3/uL; Eosinophils% 7.5 % (0-5); Hematocrit 32.8 % (40-54); Lymphocyte # 0.97 X10^3/ul (4.0); Lymphocyte % 19.2 % (19-41); Mean Corp Hgb Conc 30.5 g/dL (32-36); Mean Corpuscular Hgb 30.5 pg (27.0-32.0); Mean Platelet Vol. 10.2 fl (6.2-12.0); Monocyte# 0.61 X10^3/uL; Monocyte% 12.1 % (0-10); NRBC Flagged by Analyzer 0 % (0-5); Neutrophil # 3.03 X10^3/uL (2.7-7.7); Platelet Count 236 K/mm3 (150-450); RBC Distribution Width CV 14.4 % (11.6-14.6); Red Blood Count 3.28 M/mm3 (4.6-6.2); White Blood Count 5.1 K/mm3 (4.4-11.0)
[2019-08-02 08:12] LABS: Anion Gap 4 (5-15); BUN 21 mg/dL (7-18); Calcium,Total 8.6 mg/dL (8.5-10.1); Chloride 98 mmol/L (98-107); Creatinine, Serum 0.91 mg/dL (0.70-1.30); EST Glomerular Filtration Rate 84 mL/min (>60); Est Glom Filt Rate - Afr Amer 102 mL/min (>60); Estimated Creatinine Clearance 62.59 ml/min; Glucose 191 mg/dL (74-106); Potassium 4.7 mmol/L (3.5-5.1); Sodium Level 136 mmol/L (136-145)
[2019-08-02] MEDS: Acetaminophen 500 MG Tablet 1000 MG PO (10:09)
[2019-08-02] MEDS: Tuberculin,Purif.prot.deriv. 50 TU/ML Vial 5 ML ID (10:10)
[2019-08-02 11:20] LABS: Bedside Glucose 252 mg/dL (70-110)
--- NOTE | 2019-08-02 11:47 | NURSING ---
Family not called per pt request stating you don't need to bother them I talk to my boy everyday
[2019-08-02 14:21] VITALS: BP 114/44; PULSE 71; RESP 18; TEMP 36.4; O2SAT 97
[2019-08-02 17:16] LABS: Bedside Glucose 254 mg/dL (70-110)
[2019-08-02 17:49] VITALS: PULSE 71
--- NOTE | 2019-08-02 21:05 | NURSING ---
Dressing removed from PHILLIP PICC site. Area clean and without redness at this time
[2019-08-02] MEDS: Atorvastatin Calcium 40 MG Tablet PO (21:12)
[2019-08-02 21:36] LABS: Bedside Glucose 208 mg/dL (70-110)
[2019-08-02 22:34] VITALS: PULSE 69; RESP 18
[2019-08-03] VITALS (12 sets, daily range): BP systolic 109–127; BP diastolic 48–55; PULSE 67–99; RESP 18–24; TEMP 36.7–37.3; O2SAT 72–97
--- NOTE | 2019-08-03 01:24 | NURSING ---
Addendum entered by Lindsay Kumar 08/03/19 06:46: Patient requested to have Venti-mask off. Nasal Cannula placed back on at 5 LPM. Original Note: Patient states I don't feel right. This nurse obtained vitals. Oxygen saturation at 72% on 4 LPM via nasal cannula. Increased patient to 5 LPM. O2 Sat increased to 81-82%. Venti mask placed at 50%. Oxygen increased to 91-92%. RN aware. Notified Dr. Stevens.
--- NOTE | 2019-08-03 01:38 | RAD_ITS ---
STUDY: X-RAY CHEST REASON FOR EXAM: Male, 83 years old patient with shortness of breath, with recent fall and hypotension possibly secondary to dehydration. Patient tested positive for COVID on July 22. TECHNIQUE: PA and lateral views of the chest. COMPARISON: July 26, 2019. FINDINGS: The lungs are expanded. There is heterogeneous bilateral basilar airspace consolidation and groundglass attenuation consistent with pneumonia. There may also be patchy upper lobe groundglass attenuation and/or peribronchial cuffing. There appear to be small bilateral pleural effusions. Normal size heart. The right hilar area is prominent and right hilar lymphadenopathy cannot be excluded. There is prominence of the pulmonary hilar arteries with peripheral pulmonary vascular congestion. There is atherosclerotic calcification of the aortic arch with tortuosity. There is demineralization of the osseous structures. Normal visualized ribs, clavicles, and shoulders. There is no demonstrated abnormality of the visualized soft tissue structures of the upper abdomen. RAD/Chest PA and Lateral IMPRESSION: 1. There is bilateral basilar airspace consolidation or pleural effusions consistent with pneumonia. 2. Questionable hilar lymphadenopathy. Electronically Signed: Bisi Johnson MD at 2:32 EDT , Service support ,
[2019-08-03] MEDS: Albuterol 2.5 MG/3 ML VIAL.NEB. INHALATION (02:08)
--- NOTE | 2019-08-03 03:11 | NURSING ---
Dr. Stevens notified of chest xray results, new orders given.
[2019-08-03] MEDS: Senna/Docusate Sodium 1 Tablet PO ×2 (05:20→18:11)
[2019-08-03] MEDS: Tamsulosin HCl 0.4 MG Capsule PO ×2 (05:20→18:11)
[2019-08-03] MEDS: amLODIPine 5 MG Tablet PO (05:20)
[2019-08-03] MEDS: Pioglitazone Hydrochloride 45 MG Tablet PO (05:20)
[2019-08-03] MEDS: Pantoprazole Sodium 40 MG Tablet PO ×2 (05:20→18:11)
[2019-08-03] MEDS: Metoprolol Tartrate 25 MG Tablet PO ×2 (05:21→18:11)
[2019-08-03] MEDS: Umeclidinium Bromide Inhaler 1 PUFF IH (05:21)
[2019-08-03] MEDS: Menthol/Lanolin/Calamine/Znox 113 GM Tube 1 APPLIC TOPICAL ×2 (05:22→18:10)
[2019-08-03] MEDS: Polyethylene Glycol 3350 17 GM PACKET PO (05:22)
[2019-08-03] MEDS: Gabapentin 300 MG Capsule PO ×3 (05:23→20:23)
[2019-08-03] MEDS: levoFLOXacin 250 MG Tablet PO (05:29)
[2019-08-03] MEDS: Nystatin Powder 15gm Bottle 1 APPLIC TOPICAL ×2 (05:30→18:12)
[2019-08-03 06:21] LABS: Bedside Glucose 160 mg/dL (70-110)
[2019-08-03] MEDS: Ipratropium/Albuterol Sulfate 3 ML AMPUL.NEB INHALATION ×3 (07:10→19:50)
[2019-08-03] MEDS: Glimepiride 1 MG Tablet PO (07:57)
[2019-08-03] MEDS: Aspirin 81 MG TAB.CHEW PO (07:58)
[2019-08-03] MEDS: Glucerna Shake 120 ML LIQUID PO ×3 (07:59→18:10)
[2019-08-03] MEDS: MethylPREDNISolone DosePak 4 MG BOX PO ×4 (08:33→20:23)
[2019-08-03 11:16] LABS: Bedside Glucose 205 mg/dL (70-110)
[2019-08-03 17:11] LABS: Bedside Glucose 246 mg/dL (70-110)
[2019-08-03] MEDS: Atorvastatin Calcium 40 MG Tablet PO (20:23)
[2019-08-03 21:16] LABS: Bedside Glucose 300 mg/dL (70-110)
[2019-08-04] VITALS (12 sets, daily range): BP systolic 96–118; BP diastolic 49–53; PULSE 68–107; RESP 18–24; TEMP 36.8–36.9; O2SAT 80–98
[2019-08-04] MEDS: Ipratropium/Albuterol Sulfate 3 ML AMPUL.NEB INHALATION ×4 (02:10→19:03)
--- NOTE | 2019-08-04 02:44 | NURSING ---
Per patient request, ambulated to bathroom with x2 assist. Refusing to use urinal. Oxygen decreasing with exertion more frequently this shift and while resting. Refusing to use Venti mask still. Educated patient on the importance of using the mask to help keep Oxygen saturation above 90's. Significant increase in weakness noted since Sunday (07/31). Increase in shaking also noted. Patient states I just feel miserable. RN aware of patient declining.
[2019-08-04] MEDS: Tamsulosin HCl 0.4 MG Capsule PO ×2 (06:15→17:40)
[2019-08-04] MEDS: Pioglitazone Hydrochloride 45 MG Tablet PO (06:15)
[2019-08-04] MEDS: amLODIPine 5 MG Tablet PO (06:15)
[2019-08-04] MEDS: Senna/Docusate Sodium 1 Tablet PO ×2 (06:15→17:47)
[2019-08-04] MEDS: levoFLOXacin 250 MG Tablet PO (06:15)
[2019-08-04] MEDS: Gabapentin 300 MG Capsule PO ×3 (06:15→21:21)
[2019-08-04] MEDS: Polyethylene Glycol 3350 17 GM PACKET PO (06:15)
[2019-08-04] MEDS: Pantoprazole Sodium 40 MG Tablet PO ×2 (06:15→17:41)
[2019-08-04] MEDS: Umeclidinium Bromide Inhaler 1 PUFF IH (06:16)
[2019-08-04] MEDS: Nystatin Powder 15gm Bottle 1 APPLIC TOPICAL ×2 (06:17→17:45)
[2019-08-04] MEDS: Metoprolol Tartrate 25 MG Tablet PO ×2 (06:20→17:51)
[2019-08-04] MEDS: Menthol/Lanolin/Calamine/Znox 113 GM Tube 1 APPLIC TOPICAL ×2 (06:21→17:40)
[2019-08-04 06:26] LABS: Bedside Glucose 227 mg/dL (70-110)
[2019-08-04] MEDS: MethylPREDNISolone DosePak 4 MG BOX PO ×4 (09:06→21:16)
[2019-08-04] MEDS: Aspirin 81 MG TAB.CHEW PO (09:06)
[2019-08-04] MEDS: Glimepiride 1 MG Tablet PO (09:06)
[2019-08-04] MEDS: Glucerna Shake 120 ML LIQUID PO (09:11)
[2019-08-04] MEDS: Ceftriaxone 1 GM/50 ML BAG IV (10:10)
[2019-08-04] MEDS: 0.9% Saline Lock 10 ML Syringe IV ×2 (10:10→11:04)
--- NOTE | 2019-08-04 10:24 | PHA.CONS_ITS ---
<OctaviaAj carranzai - Last Filed: 08/04/19 10:24> Progress Note - Pharmacy Subjective: TCU Admission Objective: Allergies WORM MEDICATION Allergy (Uncoded 03/13/19 09:25) Hives 50 years ago. kids had got worms so the whole family needed to be treated for it. Current Medications Generic Name Dose Route Start Last Admin Trade Name Freq PRN Reason Stop Dose Admin Acetaminophen 1,000 mg 08/01/19 20:30 08/02/19 10:09 Tylenol PO 1,000 mg Q6H PRN PRN Administration Pain Score 1-1010 Albuterol Sulfate 2.5 mg 08/03/19 01:31 08/03/19 02:08 Ventolin Aerosols INHALATION 2.5 mg Q2H PRN PRN Administration SOB &/OR WHEEZING Albuterol/Ipratropium 3 ml 08/03/19 06:00 08/04/19 07:03 Duoneb INHALATION 3 ml Q6HWA.RT HAIDER Administration Amlodipine Besylate 5 mg 08/02/19 06:00 08/04/19 06:15 Norvasc PO 5 mg DAILY HAIDER Administration Aspirin 81 mg 08/02/19 08:00 08/04/19 09:06 Aspirin, Baby PO 81 mg DAILY@0800 HAIDER Administration Atorvastatin Calcium 40 mg 08/01/19 22:00 08/03/19 20:23 Lipitor PO 40 mg QHS HAIDER Administration Azithromycin 500 mg 08/04/19 10:00 Zithromax PO 08/11/19 10:01 Q24 HAIDER Bisacodyl 10 mg 08/01/19 20:30 Dulcolax RECTAL DAILY PRN Constipation Calamine/Phenol 1 applic 08/01/19 18:00 08/04/19 06:21 Calmoseptine Ointment TOPICAL 1 applicatio BID HAIDER Administration Protocol Gabapentin 300 mg 08/01/19 22:00 08/04/19 06:15 Neurontin PO 300 mg TID HAIDER Administration Glimepiride 1 mg 08/02/19 08:00 08/04/19 09:06 Amaryl PO 1 mg DAILY@0800 HAIDER Administration Ceftriaxone Sodium 1 gm in 50 mls @ 100 mls/hr 08/04/19 10:00 08/04/19 10:10 Rocephin IV 08/11/19 10:01 100 mls/hr Q24 HAIDER Administration Sodium Chloride 250 mls @ 15 mls/hr 08/04/19 09:52 08/04/19 10:06 IV 15 mls/hr .[id number] PRN Administration Saline Flush Sodium Chloride 250 mls @ 15 mls/hr 08/04/19 09:52 IV .[id number] PRN Additional IVPB Infusion Insulin Glargine 10 units 08/03/19 18:00 08/04/19 06:18 Lantus ([facility]) SC 10 u BID HAIDER Administration Insulin Human Lispro 7 unit 08/04/19 11:45 Humalog Kwikpen ([facility]) SC TIDAC HAIDER Melatonin 3 mg 08/01/19 16:16 Melatonin PO QHS PRN PRN Insomnia Methylprednisolone 4 mg 08/03/19 08:00 08/04/19 09:06 Medrol Dosepak PO 08/08/19 08:59 4 mg 0800,1200,1700 HAIDER Administration Taper Metoprolol Tartrate 25 mg 08/01/19 18:00 08/04/19 06:20 Lopressor (Beta Estevan) PO 25 mg BID HAIDER Administration Multi-Ingredient Cream 1 applic 08/01/19 17:02 08/04/19 06:17 Eucerin TOPICAL 1 applic DAILY PRN PRN Administration DRY SKIN Protocol Nutritional Formula (Lactose Free) 120 ml 08/01/19 17:45 08/04/19 09:11 Glucerna Shake PO 120 ml TIDCM HAIDER Administration Nystatin 1 applic 08/01/19 18:00 08/04/19 06:17 Mycostatin Powder TOPICAL 1 applicatio BID HAIDER Administration Protocol Pantoprazole Sodium 40 mg 08/01/19 18:00 08/04/19 06:15 Protonix PO 40 mg BID HAIDER Administration Pioglitazone HCl 45 mg 08/02/19 06:00 08/04/19 06:15 Actos PO 45 mg DAILY HAIDER Administration Polyethylene Glycol 17 gm 08/02/19 06:00 08/04/19 06:15 Miralax PO 17 gm DAILY HAIDER Administration Senna/Docusate Sodium 1 tablet 08/02/19 06:00 08/04/19 06:15 Senokot-S, Jesica-Colace PO 1 tablet BID HAIDER Administration Sodium Chloride 10 - 40 ml 08/04/19 09:52 08/04/19 10:10 IV 10 ml UD PRN Administration SALINE FLUSH Tamsulosin HCl 0.4 mg 08/01/19 18:00 08/04/19 06:15 Flomax PO 0.4 mg BID HAIDER Administration Tuberculin PPD 5 tu 08/09/19 10:00 Tubersol Aplisol, Ppd ID 08/09/19 10:01 X1 ONE Umeclidinium Telephone 1 puff 08/02/19 06:00 08/04/19 06:16 Incruse Ellipta Inhaler IH 1 puff DAILY HAIDER Administration Problem List (Last Updated 07/26/19 @ 13:58 by Anneliese Cary) Debility (Acute) Fall (Acute) Shortness of breath (Acute) Acute kidney injury (Acute) Hyperkalemia (Acute) Septic shock (Acute) Coronary artery disease (Chronic) Hypertension (Chronic) Hyperlipidemia (Chronic) Diabetes mellitus (Chronic) Edema (Chronic) Hypokalemia (Chronic) BPH (benign prostatic hyperplasia) (Chronic) Diabetic neuropathy (Chronic) PAOD (peripheral arterial occlusive disease) (Chronic) Vital Signs Temp Pulse Resp BP Pulse Ox 98.4 F 84 19 H 111/53 L 97 08/04/19 06:23 08/04/19 07:03 08/04/19 07:03 08/04/19 06:20 08/04/19 07:03 Oxygen Flow Rate (L/min) 5 Oxygen Delivery Method Nasal Cannula Weight: 82.611 kg Body Mass Index (BMI) 26.5 Sodium 136 mmol/L (136-145) 08/02/19 06:52 Potassium 4.7 mmol/L (3.5-5.1) 08/02/19 06:52 Chloride 98 mmol/L (98-107) 08/02/19 06:52 Carbon Dioxide 34.0 mmol/L (21.0-32.0) H 08/02/19 06:52 Anion Gap 4 (5-15) L 08/02/19 06:52 BUN 21 mg/dL (7-18) H 08/02/19 06:52 Creatinine 0.91 mg/dL (0.70-1.30) 08/02/19 06:52 Est GFR (MDRD) Af Amer 102 mL/min (>60) 08/02/19 06:52 Est GFR (MDRD) Non-Af 84 mL/min (>60) 08/02/19 06:52 BUN/Creatinine Ratio 23.0 RATIO (10-20) H 08/02/19 06:52 Glucose 191 mg/dL (74-106) H 08/02/19 06:52 Assessment/Plan: 1. Pain: acetaminophen 1000mg PO Q6H PRN pain 1-11/28. Please continue to monitor for increased pain and PRN usage. 2. Pneumonia (per chest x-ray): ceftriaxone 1gm IV daily 08/03 - 08/10, azithromycin 500mg PO daily 08/03 - 08/10, methylprednisolone taper thru 08/07, ipratropium/albuterol nebulized solution 3mL Q6HWA.RT, albuterol inhaler 2.5mg inhalation Q2H PRN SOB/wheezing. Please continue to monitor for S/S of infection, coughing, diarrhea, blood glucose, HR and PRN use. *3. CAD/hypertension: metoprolol tartrate 25mg PO BID, aspirin 81mg PO DAILYCM, amlodipine 5mg PO daily. Please continue to monitor BP (last 111/53), HR (last 84), edema, and S/S of bleeding. Please consider adding hold parameters for amlodipine and metoprolol due to low DBP. Thanks. *4. Hyperlipidemia: atorvastatin 40mg PO QHS. I did not see a lipid panel in the patient's chart. Please consider adding one now and then annually as clinically appropriate. Thanks. 5. Diabetic polyneuropathy: gabapentin 300mg PO TID. Please continue to monitor renal function and nerve pain. *6. Type II diabetes mellitus: glimepiride 1mg PO DAILYCM, pioglitazone 45mg PO daily, insulin glargine 10units SC BID, insulin lispro 7units SC TIDAC. Recent A1c 7.7%. Please continue to monitor BG readings, for S/S of hypo/hyperglycemia. Please consider adding hypoglycemia protocol with dextrose and glucagon. Thanks. 7. GERD: pantoprazole 40mg PO BID. Please continue to monitor for S/S or GERD. 8. BPH: tamsulosin 0.4mg PO BID. Please continue to monitor for urine flow and hypotension. 9. COPD: umclidinium inhaler 1puff daily. Please continue to monitor for SOB/wheezing. 10. Insomnia: melatonin 3mg PO QHS PRN insomnia. Please continue to monitor for insomnia. Psychotropic Medications: None Unnecessary Medications: None Bowel Regimen: Miralax 17gm PO daily, senna/docusate 1T PO BID, and bisacodyl 10mg AL daily PRN constipation. Please continue to monitor for constipation and PRN use. Date of Note:: 08/04/19 - Provider Comments Provider responsibility: Provider responsible to enter orders to implement recommendations <Link Stevens Chi - Last Filed: 08/04/19 11:31> Progress Note - Pharmacy Subjective: [] Objective: Allergies WORM MEDICATION Allergy (Uncoded 03/13/19 09:25) Hives 50 years ago. kids had got worms so the whole family needed to be treated for it. Current Medications Generic Name Dose Route Start Last Admin Trade Name Freq PRN Reason Stop Dose Admin Acetaminophen 1,000 mg 08/01/19 20:30 08/02/19 10:09 Tylenol PO 1,000 mg Q6H PRN PRN Administration Pain Score 1-10/10 Albuterol Sulfate 2.5 mg 08/03/19 01:31 08/03/19 02:08 Ventolin Aerosols INHALATION 2.5 mg Q2H PRN PRN Administration SOB &/OR WHEEZING Albuterol/Ipratropium 3 ml 08/03/19 06:00 08/04/19 07:03 Duoneb INHALATION 3 ml Q6HWA.RT HAIDER Administration Amlodipine Besylate 5 mg 08/02/19 06:00 08/04/19 06:15 Norvasc PO 5 mg DAILY HAIDER Administration Aspirin 81 mg 08/02/19 08:00 08/04/19 09:06 Aspirin, Baby PO 81 mg DAILY@0800 HAIDER Administration Atorvastatin Calcium 40 mg 08/01/19 22:00 08/03/19 20:23 Lipitor PO 40 mg QHS HAIDER Administration Azithromycin 500 mg 08/04/19 10:00 08/04/19 11:04 Zithromax PO 08/11/19 10:01 500 mg Q24 HAIDER Administration Bisacodyl 10 mg 08/01/19 20:30 Dulcolax RECTAL DAILY PRN Constipation Calamine/Phenol 1 applic 08/01/19 18:00 08/04/19 06:21 Calmoseptine Ointment TOPICAL 1 applicatio BID HAIDER Administration Protocol Gabapentin 300 mg 08/01/19 22:00 08/04/19 06:15 Neurontin PO 300 mg TID HAIDER Administration Glimepiride 1 mg 08/02/19 08:00 08/04/19 09:06 Amaryl PO 1 mg DAILY@0800 HAIDER Administration Ceftriaxone Sodium 1 gm in 50 mls @ 100 mls/hr 08/04/19 10:00 08/04/19 11:07 Rocephin IV 08/11/19 10:01 Infused Q24 HAIDER Infusion Sodium Chloride 250 mls @ 15 mls/hr 08/04/19 09:52 08/04/19 10:06 IV 15 mls/hr .[id number] PRN Administration Saline Flush Sodium Chloride 250 mls @ 15 mls/hr 08/04/19 09:52 IV .[id number] PRN Additional IVPB Infusion Insulin Glargine 10 units 08/03/19 18:00 08/04/19 06:18 Lantus ([facility]) SC 10 u BID HAIDER Administration Insulin Human Lispro 7 unit 08/04/19 11:45 Humalog Kwikpen ([facility]) SC TIDAC HAIDER Melatonin 3 mg 08/01/19 16:16 Melatonin PO QHS PRN PRN Insomnia Methylprednisolone 4 mg 08/03/19 08:00 08/04/19 09:06 Medrol Dosepak PO 08/08/19 08:59 4 mg 0800,1200,1700 HAIDER Administration Taper Metoprolol Tartrate 25 mg 08/01/19 18:00 08/04/19 06:20 Lopressor (Beta Estevan) PO 25 mg BID HAIDER Administration Multi-Ingredient Cream 1 applic 08/01/19 17:02 08/04/19 06:17 Eucerin TOPICAL 1 applic DAILY PRN PRN Administration DRY SKIN Protocol Nutritional Formula (Lactose Free) 120 ml 08/01/19 17:45 08/04/19 09:11 Glucerna Shake PO 120 ml TIDCM HAIDER Administration Nystatin 1 applic 08/01/19 18:00 08/04/19 06:17 Mycostatin Powder TOPICAL 1 applicatio BID HAIDER Administration Protocol Pantoprazole Sodium 40 mg 08/01/19 18:00 08/04/19 06:15 Protonix PO 40 mg BID HAIDER Administration Pioglitazone HCl 45 mg 08/02/19 06:00 08/04/19 06:15 Actos PO 45 mg DAILY HAIDER Administration Polyethylene Glycol 17 gm 08/02/19 06:00 08/04/19 06:15 Miralax PO 17 gm DAILY HAIDER Administration Senna/Docusate Sodium 1 tablet 08/02/19 06:00 08/04/19 06:15 Senokot-S, Jesica-Colace PO 1 tablet BID HAIDER Administration Sodium Chloride 10 - 40 ml 08/04/19 09:52 08/04/19 11:04 IV 10 ml UD PRN Administration SALINE FLUSH Tamsulosin HCl 0.4 mg 08/01/19 18:00 08/04/19 06:15 Flomax PO 0.4 mg BID HAIDER Administration Tuberculin PPD 5 tu 08/09/19 10:00 Tubersol, Aplisol, Ppd ID 08/09/19 10:01 X1 ONE Umeclidinium Telephone 1 puff 08/02/19 06:00 08/04/19 06:16 Incruse Ellipta Inhaler IH 1 puff DAILY HAIDER Administration Problem List (Last Updated 07/26/19 @ 13:58 by Anneliese Cary) Debility (Acute) Fall (Acute) Shortness of breath (Acute) Acute kidney injury (Acute) Hyperkalemia (Acute) Septic shock (Acute) Coronary artery disease (Chronic) Hypertension (Chronic) Hyperlipidemia (Chronic) Diabetes mellitus (Chronic) Edema (Chronic) Hypokalemia (Chronic) BPH (benign prostatic hyperplasia) (Chronic) Diabetic neuropathy (Chronic) PAOD (peripheral arterial occlusive disease) (Chronic) Vital Signs Temp Pulse Resp BP Pulse Ox 98.4 F 84 19 H 111/53 L 97 08/04/19 06:23 08/04/19 07:03 08/04/19 07:03 08/04/19 06:20 08/04/19 07:03 Oxygen Flow Rate (L/min) 5 Oxygen Delivery Method Nasal Cannula Weight: 82.611 kg Body Mass Index (BMI) 26.5 Sodium 136 mmol/L (136-145) 08/02/19 06:52 Potassium 4.7 mmol/L (3.5-5.1) 08/02/19 06:52 Chloride 98 mmol/L (98-107) 08/02/19 06:52 Carbon Dioxide 34.0 mmol/L (21.0-32.0) H 08/02/19 06:52 Anion Gap 4 (5-15) L 08/02/19 06:52 BUN 21 mg/dL (7-18) H 08/02/19 06:52 Creatinine 0.91 mg/dL (0.70-1.30) 08/02/19 06:52 Est GFR (MDRD) Af Amer 102 mL/min (>60) 08/02/19 06:52 Est GFR (MDRD) Non-Af 84 mL/min (>60) 08/02/19 06:52 BUN/Creatinine Ratio 23.0 RATIO (10-20) H 08/02/19 06:52 Glucose 191 mg/dL (74-106) H 08/02/19 06:52 Assessment/Plan: Psychotropic Medications: Unnecessary Medications: Bowel Regimen: - Provider Comments Provider responsibility: Provider responsible to enter orders to implement recommendations Provider Comments to Recommendations by Pharmacy: Agree
[2019-08-04] MEDS: Azithromycin 250 MG Tablet 500 MG PO (11:04)
[2019-08-04 11:16] LABS: Bedside Glucose 218 mg/dL (70-110)
[2019-08-04] MEDS: Insulin Lispro 100 UNIT/ML INSULN.PEN 7 UNIT SC ×2 (11:44→17:38)
--- NOTE | 2019-08-04 14:49 | CHAPLAIN ---
Type of Pastoral Visit _x__ Initial Visit ___ Follow-up Visit ___ On-call Visit ___ General Patient Visit ___ Spiritual Assessment ___ Family Conference ___ Bereavement ___ Rapid Response ___ Code Blue ___ Other (describe below) Pastoral Care Referral From ___ Patient ___ Family ___ Nurse ___ Physician ___ Mail Handler Sorter ___ Sorter Laundry Articles _x__ Other (describe below) Sacrament/Intervention _x__ Active listening ___ Anointing ___ Evangelical ___ Bereavement ___ Communion ___ Mikayla exploration ___ ___ Life review ___ Prayer ___ Reconciliation ___ Sacrament of Sick _x__ Supportive presence ___ Wedding ___ Other (describe below) Pastoral Comments this patient has been admitted to hospital multiple times in recent months; ICU DR previously recommended spiritual care consult but pt was not able to be visited at that time; offer of support given today; pt said I'm not feeling very good today but stated he did not need help; inquired about family support which he said I have my boys and that's enough;
--- NOTE | 2019-08-04 16:28 | CASEMGMT ---
Social Work Discussed code status. Pt confirmed full code. MOLST form completed and placed in chart. Jojo Goldman, SUPERVISOR TELEVISION [employer] DELIVERY RN
[2019-08-04 16:56] LABS: Bedside Glucose 219 mg/dL (70-110)
[2019-08-04] MEDS: Atorvastatin Calcium 40 MG Tablet PO (21:17)
[2019-08-04 21:36] LABS: Bedside Glucose 181 mg/dL (70-110)
[2019-08-05] VITALS (8 sets, daily range): BP systolic 113–115; BP diastolic 58–62; PULSE 74–85; RESP 18–20; TEMP 36.8; O2SAT 93–98
[2019-08-05] MEDS: Nystatin Powder 15gm Bottle 1 APPLIC TOPICAL ×2 (05:40→17:32)
[2019-08-05] MEDS: Menthol/Lanolin/Calamine/Znox 113 GM Tube 1 APPLIC TOPICAL ×2 (05:40→17:31)
[2019-08-05] MEDS: Metoprolol Tartrate 25 MG Tablet PO ×2 (05:41→17:33)
[2019-08-05] MEDS: Pioglitazone Hydrochloride 45 MG Tablet PO (05:41)
[2019-08-05] MEDS: Pantoprazole Sodium 40 MG Tablet PO ×2 (05:41→17:33)
[2019-08-05] MEDS: amLODIPine 5 MG Tablet PO (05:41)
[2019-08-05] MEDS: Tamsulosin HCl 0.4 MG Capsule PO ×2 (05:41→17:32)
[2019-08-05] MEDS: Polyethylene Glycol 3350 17 GM PACKET PO (05:41)
[2019-08-05] MEDS: Umeclidinium Bromide Inhaler 1 PUFF IH (05:41)
[2019-08-05] MEDS: Gabapentin 300 MG Capsule PO ×3 (05:41→21:13)
[2019-08-05 06:16] LABS: Bedside Glucose 232 mg/dL (70-110)
[2019-08-05] MEDS: Senna/Docusate Sodium 1 Tablet PO ×2 (06:30→17:37)
[2019-08-05] MEDS: Ipratropium/Albuterol Sulfate 3 ML AMPUL.NEB INHALATION ×3 (07:00→19:25)
[2019-08-05] MEDS: 0.9% Saline Lock 10 ML Syringe IV ×3 (07:43→21:15)
[2019-08-05] MEDS: Insulin Lispro 100 UNIT/ML INSULN.PEN 7 UNIT SC ×3 (07:48→17:35)
[2019-08-05] MEDS: MethylPREDNISolone DosePak 4 MG BOX PO ×4 (07:48→21:14)
[2019-08-05] MEDS: Glimepiride 1 MG Tablet PO (07:48)
[2019-08-05] MEDS: Aspirin 81 MG TAB.CHEW PO (07:48)
--- NOTE | 2019-08-05 08:52 | CASEMGMT ---
Social Work Palliative Care screening tool completed. Spoke with pt about Palliative Care as pt has severe COPD, frequent hospitalizations due to COPD. Pt agreeable to referral to follow at [place]. Referral made to [facility]. Will continue to follow. SANCHEZ ShelbyW
[2019-08-05] MEDS: Ceftriaxone 1 GM/50 ML BAG IV (09:16)
[2019-08-05] MEDS: Azithromycin 250 MG Tablet 500 MG PO (09:19)
[2019-08-05 11:10] LABS: Bedside Glucose 233 mg/dL (70-110)
--- NOTE | 2019-08-05 16:16 | NURSING ---
CALLED AND UPDATE SON ON PT. SON CONFIRMED PLAN OF CARE CALL AND THANKED THIS NURSE. NO QUESTIONS OR CONCERNS STATED.
[2019-08-05 17:10] LABS: Bedside Glucose 209 mg/dL (70-110)
[2019-08-05] MEDS: Atorvastatin Calcium 40 MG Tablet PO (21:13)
[2019-08-05 21:30] LABS: Bedside Glucose 206 mg/dL (70-110)
[2019-08-06] VITALS (10 sets, daily range): BP systolic 109–118; BP diastolic 51–80; PULSE 72–84; RESP 18–20; TEMP 36.6–36.8; O2SAT 90–97
[2019-08-06] MEDS: Metoprolol Tartrate 25 MG Tablet PO ×2 (04:59→17:22)
[2019-08-06] MEDS: amLODIPine 5 MG Tablet PO (04:59)
[2019-08-06] MEDS: Pantoprazole Sodium 40 MG Tablet PO ×2 (04:59→17:23)
[2019-08-06] MEDS: Polyethylene Glycol 3350 17 GM PACKET PO (04:59)
[2019-08-06] MEDS: Gabapentin 300 MG Capsule PO ×3 (05:00→21:33)
[2019-08-06] MEDS: Pioglitazone Hydrochloride 45 MG Tablet PO (05:00)
[2019-08-06] MEDS: Tamsulosin HCl 0.4 MG Capsule PO ×2 (05:00→17:23)
[2019-08-06] MEDS: Nystatin Powder 15gm Bottle 1 APPLIC TOPICAL ×2 (05:00→17:24)
[2019-08-06] MEDS: Menthol/Lanolin/Calamine/Znox 113 GM Tube 1 APPLIC TOPICAL ×2 (05:01→17:24)
[2019-08-06] MEDS: Umeclidinium Bromide Inhaler 1 PUFF IH (05:02)
[2019-08-06] MEDS: Senna/Docusate Sodium 1 Tablet PO ×2 (05:06→17:26)
[2019-08-06 06:26] LABS: Bedside Glucose 178 mg/dL (70-110)
[2019-08-06] MEDS: Ipratropium/Albuterol Sulfate 3 ML AMPUL.NEB INHALATION ×3 (06:40→19:35)
[2019-08-06] MEDS: Insulin Lispro 100 UNIT/ML INSULN.PEN 7 UNIT SC ×3 (07:58→17:27)
[2019-08-06] MEDS: Glimepiride 1 MG Tablet PO (07:59)
[2019-08-06] MEDS: Aspirin 81 MG TAB.CHEW PO (07:59)
[2019-08-06] MEDS: MethylPREDNISolone DosePak 4 MG BOX PO ×3 (07:59→21:33)
[2019-08-06] MEDS: Albuterol 2.5 MG/3 ML VIAL.NEB. INHALATION (09:36)
[2019-08-06] MEDS: Ceftriaxone 1 GM/50 ML BAG IV (09:49)
[2019-08-06] MEDS: 0.9% Saline Lock 10 ML Syringe IV (09:50)
[2019-08-06] MEDS: Azithromycin 250 MG Tablet 500 MG PO (11:01)
[2019-08-06 11:16] LABS: Bedside Glucose 228 mg/dL (70-110)
--- NOTE | 2019-08-06 12:03 | NURSING ---
pt said he talks to his son everyday there is no need to call him for an update
--- NOTE | 2019-08-06 13:33 | CASEMGMT ---
Social Work IDT met with patient and son via conference call for care plan meeting. Discussed patient's progress in therapy. Pt is SBA for transfers, walking 50 ft with FWW at [facility], min to [facility] for LE bathing and dressing, SBA for toileting, grooming and UE ADLS. Pt get s very fatigued with any activity and takes time to recover O2 stats. Pt remains very tired throughout the day and sleepy during meeting. Referral was made to Palliative and son agreeable. Provided resources for [facility]. Pt is walter cardiac carb controlled diet, weight stable and good intake. Pt is out of isolation 08/14, IV ATBs Q24 until 08/10, on 5LMP of O2. Explained Medicare benefit, and the goal is for pt to return home with son at [facility]. Will continue to follow. Jojo Goldman, SANCHEZ RODRÍGUEZW
[2019-08-06] MEDS: guaiFENesin 600 MG Tablet PO (17:23)
[2019-08-06 21:31] LABS: Bedside Glucose 184 mg/dL (70-110)
[2019-08-06] MEDS: Atorvastatin Calcium 40 MG Tablet PO (21:33)
[2019-08-07] VITALS (7 sets, daily range): BP systolic 104–122; BP diastolic 50–64; PULSE 62–79; RESP 14–22; TEMP 36.7–36.9; O2SAT 87–93
[2019-08-07] MEDS: guaiFENesin 600 MG Tablet PO ×2 (06:01→17:10)
[2019-08-07] MEDS: Tamsulosin HCl 0.4 MG Capsule PO ×2 (06:01→17:10)
[2019-08-07] MEDS: Pioglitazone Hydrochloride 45 MG Tablet PO (06:01)
[2019-08-07] MEDS: Gabapentin 300 MG Capsule PO ×3 (06:01→23:39)
[2019-08-07] MEDS: amLODIPine 5 MG Tablet PO (06:01)
[2019-08-07] MEDS: Pantoprazole Sodium 40 MG Tablet PO ×2 (06:01→17:11)
[2019-08-07] MEDS: Metoprolol Tartrate 25 MG Tablet PO ×2 (06:06→17:09)
[2019-08-07] MEDS: Umeclidinium Bromide Inhaler 1 PUFF IH (06:07)
[2019-08-07] MEDS: Menthol/Lanolin/Calamine/Znox 113 GM Tube 1 APPLIC TOPICAL ×2 (06:07→17:09)
[2019-08-07] MEDS: Nystatin Powder 15gm Bottle 1 APPLIC TOPICAL ×2 (06:08→17:08)
[2019-08-07] MEDS: Polyethylene Glycol 3350 17 GM PACKET PO (06:08)
[2019-08-07] MEDS: Senna/Docusate Sodium 1 Tablet PO ×2 (06:15→17:13)
[2019-08-07 06:16] LABS: Bedside Glucose 156 mg/dL (70-110)
[2019-08-07] MEDS: Ipratropium/Albuterol Sulfate 3 ML AMPUL.NEB INHALATION ×2 (07:00→20:02)
[2019-08-07] MEDS: Insulin Lispro 100 UNIT/ML INSULN.PEN 7 UNIT SC ×3 (07:31→16:30)
[2019-08-07] MEDS: Aspirin 81 MG TAB.CHEW PO (07:32)
[2019-08-07] MEDS: Glimepiride 1 MG Tablet PO (07:32)
[2019-08-07] MEDS: MethylPREDNISolone DosePak 4 MG BOX PO ×2 (07:32→23:38)
[2019-08-07] MEDS: 0.9% Saline Lock 10 ML Syringe IV (09:38)
[2019-08-07] MEDS: Ceftriaxone 1 GM/50 ML BAG IV (09:38)
[2019-08-07] MEDS: Azithromycin 250 MG Tablet 500 MG PO (09:41)
[2019-08-07 11:36] LABS: Bedside Glucose 220 mg/dL (70-110)
[2019-08-07] MEDS: Bisacodyl 10 MG Suppository RECTAL (13:48)
[2019-08-07 16:41] LABS: Bedside Glucose 190 mg/dL (70-110)
[2019-08-07 21:35] LABS: Bedside Glucose 292 mg/dL (70-110)
[2019-08-07 22:16] LABS: Bedside Glucose 101 mg/dL (70-110)
[2019-08-07] MEDS: Atorvastatin Calcium 40 MG Tablet PO (23:39)
[2019-08-08] VITALS (7 sets, daily range): BP systolic 96–119; BP diastolic 43–67; PULSE 74–85; RESP 14–18; TEMP 36.7–36.8; O2SAT 89–95
[2019-08-08] MEDS: Umeclidinium Bromide Inhaler 1 PUFF IH (05:40)
[2019-08-08] MEDS: Tamsulosin HCl 0.4 MG Capsule PO ×2 (05:42→18:17)
[2019-08-08] MEDS: Menthol/Lanolin/Calamine/Znox 113 GM Tube 1 APPLIC TOPICAL ×2 (05:42→18:16)
[2019-08-08] MEDS: Pioglitazone Hydrochloride 45 MG Tablet PO (05:42)
[2019-08-08] MEDS: Polyethylene Glycol 3350 17 GM PACKET PO (05:43)
[2019-08-08] MEDS: guaiFENesin 600 MG Tablet PO ×2 (05:45→18:19)
[2019-08-08] MEDS: Nystatin Powder 15gm Bottle 1 APPLIC TOPICAL ×2 (05:46→18:19)
[2019-08-08] MEDS: Pantoprazole Sodium 40 MG Tablet PO ×2 (05:46→18:20)
[2019-08-08] MEDS: amLODIPine 5 MG Tablet PO (05:46)
[2019-08-08] MEDS: Gabapentin 300 MG Capsule PO ×3 (05:46→21:03)
[2019-08-08] MEDS: Senna/Docusate Sodium 1 Tablet PO ×2 (05:49→18:22)
[2019-08-08 06:41] LABS: Bedside Glucose 119 mg/dL (70-110)
[2019-08-08] MEDS: Metoprolol Tartrate 25 MG Tablet PO ×2 (06:50→18:18)
[2019-08-08] MEDS: Ipratropium/Albuterol Sulfate 3 ML AMPUL.NEB INHALATION ×2 (07:00→13:00)
--- NOTE | 2019-08-08 08:24 | NURSING ---
pt very hard to wake up,once a wake pt stated he had to pee. pt very shaky and this nurse took pt in recliner. pt hard to stand and kept awake. called rn to room. vitals done,rn reported to . got pt back in recliner. in to see pt.
[2019-08-08 08:59] LABS: Absolute Lymphocyte Count 1.39 X10^3/uL (0.83-4.51); Absolute Neutrophil Count 4.2 X10^3/uL (2.0-7.7); Basophil# 0.04 X10^3/uL; Basophil% 0.6 % (0-1); Eosinophil# 0.15 X10^3/uL; Eosinophils% 2.3 % (0-5); Hematocrit 33.2 % (40-54); Lymphocyte # 1.39 X10^3/ul (4.0); Lymphocyte % 21.2 % (19-41); Mean Corp Hgb Conc 30.1 g/dL (32-36); Mean Corpuscular Volume 102.8 fL (80-94); Monocyte# 0.67 X10^3/uL; Monocyte% 10.2 % (0-10); NRBC Flagged by Analyzer 0 % (0-5); Neutrophil # 4.22 X10^3/uL (2.7-7.7); Neutrophil % 64.3 % (47-70); Platelet Count 379 K/mm3 (150-450); RBC Distribution Width CV 14.9 % (11.6-14.6); RBC Distribution Width SD 55.5 fl (35.1-43.9); Red Blood Count 3.23 M/mm3 (4.6-6.2); White Blood Count 6.6 K/mm3 (4.4-11.0)
[2019-08-08 09:03] LABS: Anion Gap 3 (5-15); BUN 29 mg/dL (7-18); BUN/Creat Ratio 30.4 RATIO (10-20); Calcium,Total 8.7 mg/dL (8.5-10.1); Chloride 93 mmol/L (98-107); Creatinine, Serum 0.95 mg/dL (0.70-1.30); EST Glomerular Filtration Rate 80 mL/min (>60); Est Glom Filt Rate - Afr Amer 97 mL/min (>60); Estimated Creatinine Clearance 59.95 ml/min; Glucose 112 mg/dL (74-106); Potassium 5.1 mmol/L (3.5-5.1); Sodium Level 136 mmol/L (136-145)
--- NOTE | 2019-08-08 09:25 | RAD_ITS ---
STUDY: X-RAY CHEST REASON FOR EXAM: Male, 83 years old. FALL, DEHYDRATION, HYPOTENSION, PNEUMONIA TECHNIQUE: AP and lateral views of the chest. COMPARISON: Comparison is made with prior study dated August 03, 2019. FINDINGS: Since prior study, there has been improved aeration of both lungs. Residual small bilateral pleural effusions worse on the left side persist with bibasilar atelectasis and/or infiltrates worse on the left side. Normal size heart. Normal mediastinum and dionne. Normal visualized pulmonary arteries. There is atherosclerotic calcification of the aortic arch with tortuosity. There is demineralization of the osseous structures. Normal visualized ribs, clavicles, and shoulders. There is no demonstrated abnormality of the visualized soft tissue structures of the upper abdomen. RAD/Chest PA and Lateral IMPRESSION: Residual small bilateral pleural effusions with bibasilar atelectasis more prominent in the left lower lobe. Electronically Signed: Renan Domínguez, at 12:23 EDT , Service support ,
--- NOTE | 2019-08-08 09:25 | RAD_ITS ---
STUDY: X-RAY - ABDOMEN/PELVIS REASON FOR EXAM: Male, 83 years old. CONSTIPATION, DEHYDRATION TECHNIQUE: Single AP view of the abdomen / pelvis. COMPARISON: None. FINDINGS: Bibasilar atelectasis/infiltrates worse at the left lung base. There is an abundance of fecal material throughout the colon. The visualized liver, spleen and kidneys are grossly normal in size and morphology. There are calcified phleboliths in the pelvis. There are degenerative changes of the visualized lumbar spine. RAD/Abdomen Single View IMPRESSION: Large amount of fecal material is seen in the colon. Electronically Signed: Renan Domínguez, at 12:27 EDT , Service support ,
[2019-08-08 10:05] LABS: Bacteria 0 SEEN /hpf (None Seen); Mucous, Urine 0 SEEN /hpf (<or=2+); Red Blood Cells-Urine 0 SEEN /hpf (0-5); Squamous Epithelial Cells - UA 0 SEEN /hpf (0-5); White Blood Cells 0 SEEN /hpf (0-5)
[2019-08-08] MEDS: 0.9% Saline Lock 10 ML Syringe IV (10:11)
[2019-08-08] MEDS: Ceftriaxone 1 GM/50 ML BAG IV (10:12)
[2019-08-08] MEDS: Glimepiride 1 MG Tablet PO (10:15)
[2019-08-08] MEDS: Aspirin 81 MG TAB.CHEW PO (10:15)
[2019-08-08 10:19] LABS: Color, Urine Yellow (Yellow); Glucose, Dipstick Normal (Normal); Ketone-Dipstick Negative (Negative); Leukocyte Esterase-Dipstick Negative /ul (Negative); Nitrite-Dipstick Negative (Negative); Occult Blood-Urine Negative /ul (Negative); Protein-Dipstick Negative (Negative); Urine Bilirubin Dipstick Negative (Negative); Urine Clarity Clear (Clear); Urine Urobilinogen Normal (Normal)
[2019-08-08] MEDS: MethylPREDNISolone DosePak 4 MG BOX PO (10:19)
[2019-08-08] MEDS: Azithromycin 250 MG Tablet 500 MG PO (10:20)
[2019-08-08 11:36] LABS: Bedside Glucose 113 mg/dL (70-110)
[2019-08-08] MEDS: Insulin Lispro 100 UNIT/ML INSULN.PEN 7 UNIT SC ×2 (12:53→18:25)
[2019-08-08] MEDS: Magnesium Citrate 300 ML PO (14:30)
--- NOTE | 2019-08-08 14:48 | NURSING ---
RN talked to family and gave update.
--- NOTE | 2019-08-08 16:00 | NURSING ---
LATE ENTRY - CALLED TO ROOM BY CHRISTI BERGER, STATING PT NOT ACTING RIGHT. PT ON TOILET, SHAKING, EYES CLOSED, STATES HE IS TIRED. O2 SAT 89% ON 5L NC. DR HAND HERE ON UNIT & MADE AWARE. PT ASSESSED PER MD & NEW ORDERS RECEIVED.
[2019-08-08 16:50] LABS: Bedside Glucose 185 mg/dL (70-110)
--- NOTE | 2019-08-08 18:00 | NURSING ---
Positive results from the mag citrate that was given.
--- NOTE | 2019-08-08 18:28 | NURSING ---
Pt refused the soap suds enema. stated he would rather drink the nulytely if needed. pt had another bm.
[2019-08-08] MEDS: Atorvastatin Calcium 40 MG Tablet PO (21:03)
[2019-08-08 23:26] LABS: Bedside Glucose 201 mg/dL (70-110)
[2019-08-09 04:00] VITALS: BP 100/40; PULSE 75; RESP 14; TEMP 36.7; O2SAT 96
[2019-08-09] MEDS: Pioglitazone Hydrochloride 45 MG Tablet PO (06:00)
[2019-08-09] MEDS: guaiFENesin 600 MG Tablet PO ×2 (06:22→17:23)
[2019-08-09] MEDS: Menthol/Lanolin/Calamine/Znox 113 GM Tube 1 APPLIC TOPICAL ×2 (06:22→17:33)
[2019-08-09] MEDS: Pantoprazole Sodium 40 MG Tablet PO ×2 (06:22→17:23)
[2019-08-09] MEDS: Gabapentin 300 MG Capsule PO ×3 (06:22→20:55)
[2019-08-09] MEDS: Nystatin Powder 15gm Bottle 1 APPLIC TOPICAL ×2 (06:23→17:34)
[2019-08-09] MEDS: Tamsulosin HCl 0.4 MG Capsule PO ×2 (06:23→17:21)
[2019-08-09] MEDS: amLODIPine 5 MG Tablet PO (06:23)
[2019-08-09] MEDS: Polyethylene Glycol 3350 17 GM PACKET PO (06:23)
[2019-08-09] MEDS: Senna/Docusate Sodium 1 Tablet PO ×2 (06:26→17:29)
[2019-08-09] MEDS: Umeclidinium Bromide Inhaler 1 PUFF IH (06:40)
[2019-08-09 06:41] LABS: Bedside Glucose 127 mg/dL (70-110)
[2019-08-09 07:00] VITALS: PULSE 72; RESP 17
[2019-08-09 07:23] LABS: Absolute Lymphocyte Count 1.72 X10^3/uL (0.83-4.51); Absolute Neutrophil Count 3.7 X10^3/uL (2.0-7.7); Basophil# 0.04 X10^3/uL; Basophil% 0.6 % (0-1); Eosinophil# 0.21 X10^3/uL; Eosinophils% 3.3 % (0-5); Hematocrit 32.3 % (40-54); Hemoglobin 9.6 g/dL (13.0-16.5); Lymphocyte # 1.72 X10^3/ul (4.0); Lymphocyte % 26.7 % (19-41); Mean Corp Hgb Conc 29.7 g/dL (32-36); Mean Corpuscular Hgb 30.9 pg (27.0-32.0); Mean Corpuscular Volume 103.9 fL (80-94); Mean Platelet Vol. 10.1 fl (6.2-12.0); Monocyte# 0.69 X10^3/uL; Monocyte% 10.7 % (0-10); NRBC Flagged by Analyzer 0 % (0-5); Neutrophil % 57.6 % (47-70); Platelet Count 344 K/mm3 (150-450); RBC Distribution Width CV 15.2 % (11.6-14.6); RBC Distribution Width SD 56.2 fl (35.1-43.9); Red Blood Count 3.11 M/mm3 (4.6-6.2); White Blood Count 6.4 K/mm3 (4.4-11.0)
[2019-08-09 07:46] LABS: Anion Gap 0 (5-15); BUN 28 mg/dL (7-18); BUN/Creat Ratio 28.7 RATIO (10-20); Calcium,Total 8.6 mg/dL (8.5-10.1); Chloride 92 mmol/L (98-107); Creatinine, Serum 0.98 mg/dL (0.70-1.30); EST Glomerular Filtration Rate 78 mL/min (>60); Est Glom Filt Rate - Afr Amer 94 mL/min (>60); Estimated Creatinine Clearance 58.12 ml/min; Glucose 124 mg/dL (74-106); Potassium 4.7 mmol/L (3.5-5.1); Sodium Level 135 mmol/L (136-145)
[2019-08-09] MEDS: Aspirin 81 MG TAB.CHEW PO (09:54)
[2019-08-09] MEDS: Glimepiride 1 MG Tablet PO (09:56)
[2019-08-09 10:00] VITALS: RESP 16
[2019-08-09] MEDS: 0.9% Saline Lock 10 ML Syringe IV ×2 (10:25→20:52)
[2019-08-09] MEDS: Ceftriaxone 1 GM/50 ML BAG IV (10:25)
[2019-08-09] MEDS: Azithromycin 250 MG Tablet 500 MG PO (10:28)
[2019-08-09] MEDS: Tuberculin,Purif.prot.deriv. 50 TU/ML Vial 5 ML ID (11:18)
[2019-08-09 11:35] LABS: Bedside Glucose 241 mg/dL (70-110)
[2019-08-09] MEDS: Insulin Lispro 100 UNIT/ML INSULN.PEN 7 UNIT SC ×2 (11:39→17:21)
[2019-08-09 14:49] VITALS: BP 100/38; PULSE 78; RESP 16; TEMP 36.7; O2SAT 99
[2019-08-09 16:41] LABS: Bedside Glucose 173 mg/dL (70-110)
[2019-08-09 17:30] VITALS: BP 102/48; PULSE 73
[2019-08-09 19:30] VITALS: PULSE 78; RESP 20
[2019-08-09] MEDS: Ipratropium/Albuterol Sulfate 3 ML AMPUL.NEB INHALATION (19:30)
[2019-08-09] MEDS: Atorvastatin Calcium 40 MG Tablet PO (20:55)
[2019-08-09 21:31] LABS: Bedside Glucose 163 mg/dL (70-110)
[2019-08-10] VITALS (7 sets, daily range): BP systolic 109–114; BP diastolic 32–43; PULSE 80–90; RESP 18–20; TEMP 36.5; O2SAT 93–95
[2019-08-10] MEDS: Polyethylene Glycol 3350 17 GM PACKET PO (05:07)
[2019-08-10] MEDS: amLODIPine 5 MG Tablet PO (05:09)
[2019-08-10] MEDS: Pioglitazone Hydrochloride 45 MG Tablet PO (05:09)
[2019-08-10] MEDS: guaiFENesin 600 MG Tablet PO ×2 (05:09→17:40)
[2019-08-10] MEDS: Tamsulosin HCl 0.4 MG Capsule PO ×2 (05:09→17:32)
[2019-08-10] MEDS: Pantoprazole Sodium 40 MG Tablet PO ×2 (05:09→17:40)
[2019-08-10] MEDS: Gabapentin 300 MG Capsule PO ×3 (05:09→20:48)
[2019-08-10] MEDS: Umeclidinium Bromide Inhaler 1 PUFF IH (05:10)
[2019-08-10] MEDS: Menthol/Lanolin/Calamine/Znox 113 GM Tube 1 APPLIC TOPICAL ×2 (05:11→17:45)
[2019-08-10] MEDS: Nystatin Powder 15gm Bottle 1 APPLIC TOPICAL ×2 (05:13→17:45)
[2019-08-10] MEDS: Senna/Docusate Sodium 1 Tablet PO (05:15)
[2019-08-10 06:21] LABS: Bedside Glucose 177 mg/dL (70-110)
[2019-08-10] MEDS: Insulin Lispro 100 UNIT/ML INSULN.PEN 7 UNIT SC ×3 (08:40→17:32)
[2019-08-10] MEDS: Aspirin 81 MG TAB.CHEW PO (08:41)
[2019-08-10] MEDS: Glimepiride 1 MG Tablet PO (08:41)
[2019-08-10] MEDS: Azithromycin 250 MG Tablet 500 MG PO (10:50)
[2019-08-10] MEDS: Ceftriaxone 1 GM/50 ML BAG IV (10:53)
[2019-08-10 11:20] LABS: Bedside Glucose 156 mg/dL (70-110)
[2019-08-10] MEDS: Ipratropium/Albuterol Sulfate 3 ML AMPUL.NEB INHALATION ×2 (13:25→19:40)
--- NOTE | 2019-08-10 14:46 | NURSING ---
Notified Dr. Stevens of patient's current vital signs. Received new order.
[2019-08-10 16:25] LABS: Bedside Glucose 155 mg/dL (70-110)
[2019-08-10] MEDS: Metoprolol Tartrate 25 MG Tablet 12.5 MG PO (17:39)
[2019-08-10] MEDS: Atorvastatin Calcium 40 MG Tablet PO (20:48)
[2019-08-10] MEDS: 0.9% Saline Lock 10 ML Syringe IV (20:50)
[2019-08-10 21:21] LABS: Bedside Glucose 169 mg/dL (70-110)
[2019-08-11] VITALS (7 sets, daily range): BP systolic 102–110; BP diastolic 40–50; PULSE 70–80; RESP 16–20; TEMP 36.6–36.8; O2SAT 90–96
[2019-08-11] MEDS: Pioglitazone Hydrochloride 45 MG Tablet PO (04:59)
[2019-08-11] MEDS: Tamsulosin HCl 0.4 MG Capsule PO ×2 (04:59→17:53)
[2019-08-11] MEDS: Senna/Docusate Sodium 1 Tablet PO ×2 (04:59→18:00)
[2019-08-11] MEDS: guaiFENesin 600 MG Tablet PO ×2 (04:59→17:54)
[2019-08-11] MEDS: Pantoprazole Sodium 40 MG Tablet PO ×2 (04:59→17:55)
[2019-08-11] MEDS: Polyethylene Glycol 3350 17 GM PACKET PO (04:59)
[2019-08-11] MEDS: Menthol/Lanolin/Calamine/Znox 113 GM Tube 1 APPLIC TOPICAL ×2 (05:00→17:57)
[2019-08-11] MEDS: Umeclidinium Bromide Inhaler 1 PUFF IH (05:00)
[2019-08-11] MEDS: Nystatin Powder 15gm Bottle 1 APPLIC TOPICAL ×2 (05:00→17:56)
[2019-08-11] MEDS: Gabapentin 300 MG Capsule PO ×3 (05:02→20:27)
[2019-08-11] MEDS: Metoprolol Tartrate 25 MG Tablet 12.5 MG PO ×2 (05:08→17:57)
[2019-08-11] MEDS: Ipratropium/Albuterol Sulfate 3 ML AMPUL.NEB INHALATION ×3 (06:25→18:53)
[2019-08-11 06:30] LABS: Bedside Glucose 123 mg/dL (70-110)
[2019-08-11] MEDS: Insulin Lispro 100 UNIT/ML INSULN.PEN 7 UNIT SC ×3 (08:09→17:52)
[2019-08-11] MEDS: Aspirin 81 MG TAB.CHEW PO (08:11)
[2019-08-11] MEDS: Glimepiride 1 MG Tablet PO (08:11)
[2019-08-11] MEDS: Azithromycin 250 MG Tablet 500 MG PO (08:11)
[2019-08-11] MEDS: 0.9% Saline Lock 10 ML Syringe IV ×3 (08:16→20:37)
[2019-08-11] MEDS: Ceftriaxone 1 GM/50 ML BAG IV (08:16)
[2019-08-11 11:30] LABS: Bedside Glucose 162 mg/dL (70-110)
[2019-08-11 16:36] LABS: Bedside Glucose 164 mg/dL (70-110)
[2019-08-11] MEDS: Atorvastatin Calcium 40 MG Tablet PO (20:27)
[2019-08-11 21:31] LABS: Bedside Glucose 125 mg/dL (70-110)
[2019-08-12] VITALS (10 sets, daily range): BP systolic 120–128; BP diastolic 53–55; PULSE 70–94; RESP 18–24; TEMP 36–36.9; O2SAT 92–98
[2019-08-12 00:21] LABS: Bedside Glucose 188 mg/dL (70-110)
[2019-08-12] MEDS: Ipratropium/Albuterol Sulfate 3 ML AMPUL.NEB INHALATION ×4 (00:25→19:14)
--- NOTE | 2019-08-12 00:42 | RAD_ITS ---
STUDY: X-RAY CHEST REASON FOR EXAM: Male, 83 years old. INCREASED SOB TECHNIQUE: PA and lateral views of the chest. COMPARISON: August 08, 2019 chest x-ray FINDINGS: There is worsening opacification of the left lower lobe. There is persistent blunting of the bilateral costophrenic angles. Interstitial markings are increased. There is visualized emphysematous change in the lung apices. Normal size heart. Normal mediastinum and dionne. Normal visualized pulmonary arteries. There is atherosclerotic calcification of the aortic arch with tortuosity. There are diffuse degenerative changes of the visualized thoracic spine. Normal visualized ribs, clavicles, and shoulders. There is no demonstrated abnormality of the visualized soft tissue structures of the upper abdomen. RAD/Chest PA and Lateral IMPRESSION: Findings are suspicious for pulmonary emphysema and chronic obstructive pulmonary disease left greater than right lower lobe consolidation and/or effusions. Electronically Signed: Katarzyna Dorsey MD at 2:08 EDT Tel , Service support ,
--- NOTE | 2019-08-12 00:43 | RAD_ITS ---
STUDY: X-RAY - ABDOMEN/PELVIS REASON FOR EXAM: Male, 83 years old. PAPERWORK SAYS CONSTIPATION -- PATIENT SAYS HE IS NOT CONSTIPATED NOR DOES HE HAVE ANY ABD PAIN OR PROBLEMS TECHNIQUE: AP supine and upright views of the abdomen and pelvis. COMPARISON: March 09, 2019, history of constipation dehydration FINDINGS: There is a blunted appearance of the bilateral costophrenic angles. There is increased density in the lung bases. There is abundant stool in the colon. There is mild to moderate gas and stool in the descending colon and rectum. The visualized liver, spleen are grossly normal in size and morphology. The kidneys are mostly obscured. There are calcified phleboliths in the pelvis. There are diffuse degenerative changes of the visualized lumbar spine. RAD/Abd Inc Decub and/or Erect IMPRESSION: Findings suspicious for bilateral pleural effusions and/or lower lobe consolidation Constipation. Electronically Signed: Katarzyna Dorsey MD at 2:06 EDT Tel , Service support ,
[2019-08-12 01:07] LABS: Bacteria 0 SEEN /hpf (None Seen); Mucous, Urine 0 SEEN /hpf (<or=2+); Red Blood Cells-Urine 0 SEEN /hpf (0-5); Squamous Epithelial Cells - UA 0 SEEN /hpf (0-5)
[2019-08-12 01:09] LABS: Color, Urine Yellow (Yellow); Glucose, Dipstick Normal (Normal); Ketone-Dipstick Negative (Negative); Leukocyte Esterase-Dipstick Negative /ul (Negative); Nitrite-Dipstick Negative (Negative); Occult Blood-Urine Negative /ul (Negative); Protein-Dipstick Negative (Negative); Specific Gravity, Urine 1.015 (1.002-1.030); Urine Bilirubin Dipstick Negative (Negative); Urine Clarity Clear (Clear); Urine Urobilinogen Normal (Normal); Urine pH 6.5 (5.0 - 8.0)
[2019-08-12 01:15] LABS: White Blood Cells 0-5 SEEN /hpf (0-5)
--- NOTE | 2019-08-12 01:21 | NURSING ---
Addendum entered by Lindsay Kumar 08/12/19 02:26: KUB shows constipation. Rectal suppository given. Original Note: Patient requested Nurse to room. This nurse went into room. Patient stated, I don't feel right, I cannot get my breath. Vitals obtained as noted. Lungs diminished. Respiratory called for breathing treatment. After treatment, patient still c/o not feeling well. Patient requesting for Dr. Stevens to be notified. RN aware. New orders received. Urine obtained via straight cath. 480 mL obtained. Patient tolerated well. Will await results.
[2019-08-12 01:28] LABS: Absolute Lymphocyte Count 1.97 X10^3/uL (0.83-4.51); Absolute Neutrophil Count 4.2 X10^3/uL (2.0-7.7); Basophil# 0.06 X10^3/uL; Basophil% 0.8 % (0-1); Eosinophil# 0.22 X10^3/uL; Hematocrit 33.5 % (40-54); Lymphocyte # 1.97 X10^3/ul (4.0); Lymphocyte % 27.1 % (19-41); Mean Corp Hgb Conc 29.9 g/dL (32-36); Mean Corpuscular Hgb 30.9 pg (27.0-32.0); Mean Corpuscular Volume 103.4 fL (80-94); Mean Platelet Vol. 10.2 fl (6.2-12.0); Monocyte# 0.74 X10^3/uL; Monocyte% 10.2 % (0-10); NRBC Flagged by Analyzer 0 % (0-5); Neutrophil # 4.19 X10^3/uL (2.7-7.7); Neutrophil % 57.8 % (47-70); Platelet Count 353 K/mm3 (150-450); RBC Distribution Width CV 15.3 % (11.6-14.6); RBC Distribution Width SD 57.2 fl (35.1-43.9); Red Blood Count 3.24 M/mm3 (4.6-6.2); White Blood Count 7.3 K/mm3 (4.4-11.0)
[2019-08-12 01:40] LABS: Anion Gap 1 (5-15); BUN 26 mg/dL (7-18); BUN/Creat Ratio 24.3 RATIO (10-20); Calcium,Total 8.3 mg/dL (8.5-10.1); Chloride 94 mmol/L (98-107); Creatinine, Serum 1.07 mg/dL (0.70-1.30); EST Glomerular Filtration Rate 70 mL/min (>60); Est Glom Filt Rate - Afr Amer 85 mL/min (>60); Estimated Creatinine Clearance 53.23 ml/min; Glucose 202 mg/dL (74-106); Potassium 4.6 mmol/L (3.5-5.1); Sodium Level 136 mmol/L (136-145)
[2019-08-12] MEDS: Bisacodyl 10 MG Suppository RECTAL (02:25)
[2019-08-12] MEDS: Pioglitazone Hydrochloride 45 MG Tablet PO (05:39)
[2019-08-12] MEDS: Gabapentin 300 MG Capsule PO ×3 (05:39→21:36)
[2019-08-12] MEDS: guaiFENesin 600 MG Tablet PO ×2 (05:39→18:03)
[2019-08-12] MEDS: Pantoprazole Sodium 40 MG Tablet PO ×2 (05:39→18:03)
[2019-08-12] MEDS: Tamsulosin HCl 0.4 MG Capsule PO ×2 (05:39→18:00)
[2019-08-12] MEDS: Metoprolol Tartrate 25 MG Tablet 12.5 MG PO ×2 (05:41→18:03)
[2019-08-12] MEDS: Polyethylene Glycol 3350 17 GM PACKET PO (05:41)
[2019-08-12] MEDS: Nystatin Powder 15gm Bottle 1 APPLIC TOPICAL ×2 (05:43→18:05)
[2019-08-12] MEDS: Menthol/Lanolin/Calamine/Znox 113 GM Tube 1 APPLIC TOPICAL ×2 (05:43→18:00)
[2019-08-12] MEDS: Umeclidinium Bromide Inhaler 1 PUFF IH (05:43)
[2019-08-12] MEDS: Senna/Docusate Sodium 1 Tablet PO ×2 (05:49→18:07)
[2019-08-12 06:26] LABS: Bedside Glucose 158 mg/dL (70-110)
[2019-08-12] MEDS: Aspirin 81 MG TAB.CHEW PO (08:23)
[2019-08-12] MEDS: Glimepiride 1 MG Tablet PO (08:23)
[2019-08-12] MEDS: Insulin Lispro 100 UNIT/ML INSULN.PEN 7 UNIT SC ×2 (08:26→12:12)
--- NOTE | 2019-08-12 09:24 | MDS.RN ---
Information for the mds was obtained from review of the clinical record, interview of resident, staff, and direct observation of resident's care.
[2019-08-12] MEDS: Lactulose 20 GM/30 ML UDC PO (10:06)
[2019-08-12] MEDS: levoFLOXacin 750 MG Tablet PO (10:06)
[2019-08-12 11:30] LABS: Bedside Glucose 175 mg/dL (70-110)
[2019-08-12] MEDS: Magnesium Citrate 300 ML PO (12:16)
--- NOTE | 2019-08-12 15:26 | CASEMGMT ---
Social Work Spoke with pt's son about pt's current status and progress. Explained is very fatigued with any activity, 5-6LPM of O2, and will need assistance to return home. Son stated he lives with his other son but he has D.D. and cannot assist. Son understanding pt's need for more assistance and open to resources. Explain ed [place], nonskilled HHC, skilled HHC, Palliative and Hospice. Son does not pt in AL and be kept at home as long as possible. Son provided email to provide nonskilled HHC list and agreeable to [facility] contacting him to discuss both programs. Contacted [facility] - pre-admit meeting scheduled 08/17 at 10 am. Will continue to follow. SANCHEZ Shelby
[2019-08-12 16:36] LABS: Bedside Glucose 78 mg/dL (70-110)
[2019-08-12] MEDS: Electrolyte Solution/Peg's 4000 ML 1000 ML PO (16:38)
[2019-08-12 21:36] LABS: Bedside Glucose 170 mg/dL (70-110)
[2019-08-12] MEDS: Atorvastatin Calcium 40 MG Tablet PO (21:36)
[2019-08-13] VITALS (8 sets, daily range): BP systolic 102–110; BP diastolic 42–50; PULSE 80–100; RESP 16–24; TEMP 36.7–36.9; O2SAT 90–97
[2019-08-13] MEDS: Umeclidinium Bromide Inhaler 1 PUFF IH (05:38)
[2019-08-13] MEDS: Polyethylene Glycol 3350 17 GM PACKET PO (05:38)
[2019-08-13] MEDS: Gabapentin 300 MG Capsule PO ×3 (05:39→20:57)
[2019-08-13] MEDS: guaiFENesin 600 MG Tablet PO ×2 (05:39→17:15)
[2019-08-13] MEDS: Pioglitazone Hydrochloride 45 MG Tablet PO (05:39)
[2019-08-13] MEDS: Pantoprazole Sodium 40 MG Tablet PO ×2 (05:39→17:18)
[2019-08-13] MEDS: Tamsulosin HCl 0.4 MG Capsule PO ×2 (05:39→17:18)
[2019-08-13] MEDS: Senna/Docusate Sodium 1 Tablet PO ×2 (05:39→17:19)
[2019-08-13] MEDS: levoFLOXacin 750 MG Tablet PO (05:39)
[2019-08-13] MEDS: Menthol/Lanolin/Calamine/Znox 113 GM Tube 1 APPLIC TOPICAL ×2 (05:50→17:14)
[2019-08-13] MEDS: Nystatin Powder 15gm Bottle 1 APPLIC TOPICAL ×2 (05:50→17:14)
[2019-08-13 06:06] LABS: Bedside Glucose 128 mg/dL (70-110)
[2019-08-13] MEDS: Ipratropium/Albuterol Sulfate 3 ML AMPUL.NEB INHALATION ×2 (07:30→12:49)
[2019-08-13] MEDS: Aspirin 81 MG TAB.CHEW PO (08:00)
[2019-08-13] MEDS: Glimepiride 1 MG Tablet PO (08:00)
[2019-08-13 10:55] LABS: Bedside Glucose 203 mg/dL (70-110)
[2019-08-13 16:26] LABS: Bedside Glucose 197 mg/dL (70-110)
[2019-08-13] MEDS: Metoprolol Tartrate 25 MG Tablet 12.5 MG PO (17:16)
[2019-08-13] MEDS: Atorvastatin Calcium 40 MG Tablet PO (20:57)
[2019-08-13 21:31] LABS: Bedside Glucose 180 mg/dL (70-110)
[2019-08-14] VITALS (11 sets, daily range): BP systolic 96–112; BP diastolic 41–47; PULSE 76–92; RESP 16–20; TEMP 36.7–36.9; O2SAT 82–98
[2019-08-14] MEDS: LORazepam 0.5 MG Tablet PO (00:43)
--- NOTE | 2019-08-14 00:48 | NURSING ---
This nurse was doing rounds and pt was c/o SOB. Sp02- 88% via nasal cannula with 5L oxygen. This nurse put oxygen up to 6L came up to 90% pt still c/o SOB. This nurse applied venturi mask on at this time 02 came up to 95%. Assess lung sounds RUL,RML RL, NIMCO anterior diminished and LL anterior fine crackles and posterior upper diminished and RML, LL fine crackles. VS 123/52, AK 96, Temp 98.2 oral, RR 20. Pt request prn ativan given at this time. Resting in recliner with call light within reach and venturi mask. Rn made aware.
[2019-08-14] MEDS: Metoprolol Tartrate 25 MG Tablet 12.5 MG PO (05:27)
[2019-08-14] MEDS: Senna/Docusate Sodium 1 Tablet PO ×2 (05:27→17:13)
[2019-08-14] MEDS: Pantoprazole Sodium 40 MG Tablet PO ×2 (05:27→17:09)
[2019-08-14] MEDS: Pioglitazone Hydrochloride 45 MG Tablet PO (05:27)
[2019-08-14] MEDS: guaiFENesin 600 MG Tablet PO ×2 (05:27→17:09)
[2019-08-14] MEDS: levoFLOXacin 750 MG Tablet PO (05:27)
[2019-08-14] MEDS: Umeclidinium Bromide Inhaler 1 PUFF IH (05:28)
[2019-08-14] MEDS: Tamsulosin HCl 0.4 MG Capsule PO ×2 (05:29→17:06)
[2019-08-14] MEDS: Menthol/Lanolin/Calamine/Znox 113 GM Tube 1 APPLIC TOPICAL ×2 (05:29→17:05)
[2019-08-14] MEDS: Polyethylene Glycol 3350 17 GM PACKET PO (05:30)
[2019-08-14] MEDS: Nystatin Powder 15gm Bottle 1 APPLIC TOPICAL ×2 (05:30→17:05)
[2019-08-14] MEDS: Gabapentin 300 MG Capsule PO ×3 (05:32→22:02)
[2019-08-14 06:35] LABS: Bedside Glucose 115 mg/dL (70-110)
[2019-08-14] MEDS: Ipratropium/Albuterol Sulfate 3 ML AMPUL.NEB INHALATION ×3 (07:10→18:40)
--- NOTE | 2019-08-14 07:10 | CPS ---
Patient sleeping, PEP therapy not done.
[2019-08-14] MEDS: Glimepiride 1 MG Tablet PO (08:06)
[2019-08-14] MEDS: Aspirin 81 MG TAB.CHEW PO (08:06)
--- NOTE | 2019-08-14 09:50 | CPS ---
Patient was placed on High Flow Nasal Cannula at 9 lpm, sats increased to 90%.
[2019-08-14 11:15] LABS: Bedside Glucose 183 mg/dL (70-110)
--- NOTE | 2019-08-14 15:07 | CASEMGMT ---
Addendum entered by Jojo Goldman 08/14/19 15:51: Patient accepted to [facility]. Will transfer 08/14. Cot transport scheduled with Physician's at 11 am. Original Note: Social Work Patient declining and having more trouble with oxygen. Currently on venti mask of 14 LPM. Respiratory set pt up with bipap when asleep. Spoke with pt about his goals and wishes. Explained Palliative vs Hospice - pt requesting hospice. Pt agreeable to speak to [facility]. Explained [facility] and home wit hospice. Discussed code status. Pt agreeable to DNR-CC. Nursing notified. Spoke with son about above information. Son prefers pt to [facility] as he will need 24/7 supervision at home and son is out of state currently. [facility] spoke with pt via phone and pt agreeable to hospice, [facility]. Dr. Stevens to complete peer to peer to potentially transfer 08/14. Will continue to follow. SANCHEZ ShelbyW
--- NOTE | 2019-08-14 16:08 | NURSING ---
Respiratory therapy in to see pt has bi-pap at bedside in case pt needed it. Respiratory is recommending labs, Bi-pap prn and Kathleen Sim and Dr. Stevens updated
--- NOTE | 2019-08-14 16:09 | CPS ---
When giving patient aerosol treatment, Patient was 82% on 9L nasal cannula. I talked with patient and he states that he doesn't feel short of breath. I increased his oxygen to 10L. When the patient is awake his oxygen is good on the 10L. But when the patient sleeps his oxygen drops. I placed a BiPAP in the room for when he sleeps but waiting on the order from . I personally discussed with his nurse about why he is requiring so much O2 and why it happened so quickly. I also suggested Labs including a BNP and a chest X-Ray; to see if the patient has an acute problem going on. The nurse put those orders on sheet.
[2019-08-14 16:46] LABS: Bedside Glucose 181 mg/dL (70-110)
[2019-08-14] MEDS: Furosemide 40 MG/4 ML Vial IV (18:26)
--- NOTE | 2019-08-14 19:30 | RAD_ITS ---
STUDY: X-RAY CHEST REASON FOR EXAM: Male, 83 years old. SOB, FALL, DEHYDRATION, HYPOTENSION TECHNIQUE: 2 views COMPARISON: Prior chest radiograph of August 12, 2019. Prior chest radiograph of July 25, 2019 FINDINGS: Continued bibasilar dependent pleural effusions. Bibasilar interstitial changes. Emphysematous changes of the upper lobes. Normal size heart. Normal mediastinum and dionne. Normal visualized pulmonary arteries. There is atherosclerotic calcification of the aortic arch with tortuosity. Normal visualized thoracic spine. Normal visualized ribs, clavicles, and shoulders. There is no demonstrated abnormality of the visualized soft tissue structures of the upper abdomen. RAD/Chest PA and Lateral IMPRESSION: Emphysematous changes upper lobes. Bibasilar interstitial changes and bilateral pleural effusions. Cardiac size appears to be normal and stable. Atherosclerotic changes of the thoracic aorta. Electronically Signed: Brenda Correa MD at 20:15 EDT , Service support ,
--- NOTE | 2019-08-14 20:00 | DCINST_ITS ---
- Discharge Diagnoses Current Active Problems: Current Active and Chronic Problems (Last Updated 07/26/19 @ 13:58 by Anneliese Cary) Debility (Acute) Fall (Acute) Shortness of breath (Acute) Acute kidney injury (Acute) Hyperkalemia (Acute) Septic shock (Acute) Coronary artery disease (Chronic) Hypertension (Chronic) Hyperlipidemia (Chronic) Diabetes mellitus (Chronic) Edema (Chronic) Hypokalemia (Chronic) BPH (benign prostatic hyperplasia) (Chronic) Diabetic neuropathy (Chronic) PAOD (peripheral arterial occlusive disease) (Chronic) You will use the following diet at home:: No restrictions, Regular Your food should be the consistency of: Regular Your liquids should be the consistency of: Regular/Thin Discharge Activity: Return to Normal Activity, May Shower, Use Walker Weight Bearing Status: Weight bearing as tolerated Call your doctor if you observe: Fever of 101 or Higher, Inability to urinate, Inability to have a bowel movement, Shortness of breath, Chest pain, Uncontrolled pain Allergies/Adverse Reactions: Allergies WORM MEDICATION Allergy (Uncoded 03/13/19 09:25) Hives 50 years ago. kids had got worms so the whole family needed to be treated for it. Medications to take at Discharge tiotropium bromide 18 mcg capsule with inhalation device 18 mcg INHALATION DAILY #30 inh 03/13/19 Gabapentin [Neurontin] 300 mg PO TID 07/25/19 Insulin Glargine [Lantus SoloStar Pen] 10 units SUBCUT DAILY 08/01/19 Melatonin 3 mg PO QHS PRN PRN tab 08/01/19 Pantoprazole Sodium [Protonix] 40 mg PO BID 08/01/19 Senna/Docusate Sodium [Senokot-S] 2 tab PO BID PRN PRN tab 08/01/19 Tamsulosin HCl [Flomax] 0.4 mg PO BID 08/01/19 Acetaminophen [Tylenol] 1,000 mg PO Q6H PRN PRN tablet 08/14/19 Albuterol Aerosols [Ventolin Aerosols] 2.5 mg INHALATION Q2H PRN PRN vial.neb. 08/14/19 Guaifenesin [Mucinex] 600 mg PO BID tablet 08/14/19 Ipratropium/Albuterol Sulfate [Duoneb] 3 ml INHALATION Q6HWA.RT ampul.neb 08/14/19 Lorazepam [Ativan] 0.5 mg PO Q8H PRN PRN tablet 08/14/19 Menthol/Lanolin/Calamine/Znox [Calmoseptine Ointment] 1 applic TOPICAL BID tube 08/14/19 Mineral Oil/Petrolatum,White [Eucerin] 1 applic TOPICAL DAILY PRN PRN jar 08/14/19 Nystatin Powder [Mycostatin Powder] 1 applic TOPICAL BID bottle 08/14/19 Polyethylene Glycol 3350 [Miralax] 17 gm PO DAILY packet 08/14/19 Primary Care Physician: Kevin Mcdowell III, MD [Primary Care Provider] - Please follow up with your Primary Care Physician in: As needed. Test Results: Test results from this visit will be discussed in further detail at your follow- up appointment, if applicable. Please Follow Up With: Kevin Mcdowell III When: As needed. Please Follow Up With: Garret Ye DO When: As needed. Please Follow Up With: Idris Ye MD - Cardiology When: As needed. Proposed Discharge Date: 08/15/19
--- NOTE | 2019-08-14 20:01 | DS.PCM_ITS ---
Discharge Date and Diagnosis - Problem List Patient Problems: Active and Suspected Problems (Last Updated 07/26/19 @ 13:58 by Anneliese Cary) Debility (Acute) Fall (Acute) Shortness of breath (Acute) Acute kidney injury (Acute) Hyperkalemia (Acute) Septic shock (Acute) Date of Admission: 08/01/19 Date of Discharge: 08/15/19 - Primary Discharge Diagnosis Acute Problems: Active Problems (Last Updated 07/26/19 @ 13:58 by Anneliese Cary) Debility (Acute) Fall (Acute) Shortness of breath (Acute) Acute kidney injury (Acute) Hyperkalemia (Acute) Septic shock (Acute) - Secondary Discharge Diagnosis Chronic Problems: Chronic Problems (Last Updated 07/26/19 @ 13:58 by Anneliese Cary) Coronary artery disease (Chronic) Hypertension (Chronic) Hyperlipidemia (Chronic) Diabetes mellitus (Chronic) Edema (Chronic) Hypokalemia (Chronic) BPH (benign prostatic hyperplasia) (Chronic) Diabetic neuropathy (Chronic) PAOD (peripheral arterial occlusive disease) (Chronic) COVID-19 (Chronic 07/01/19) Chronic kidney disease (CKD) (Chronic) Atherosclerotic heart disease of [place] coronary artery without angina pectoris (Chronic) Carotid stenosis, bilateral (Chronic) Peripheral vascular occlusive disease (Chronic) Dyslipidemia (Chronic) Essential (primary) hypertension (Chronic) DM type 2 (diabetes mellitus, type 2) (Chronic) COPD (chronic obstructive pulmonary disease) (Chronic) FEV1 37% (01/09/2019) Chronic respiratory failure with hypoxia (Chronic) Hospital Course and Treatment Imaging Results: 08/14/19 19:30 Xray Chest [Chest PA and Lateral] [RAD] Urgent Operations: None Procedures: None Summary of Care Provided: The patient is a 83 year old Male with below past medical history hospitalized for shortness of breath secondary to NSTEMI, complicated by acute kidney injury, hyperkalemia, anemia, admitted to TCU with debility, here for rehabilitation, strengthening, prior to discharge home with . On TCU, his oxygen requirement continued to increase secondary to COPD, recent COVID-19 infection, Pneumonia, pleural effusions. Unable to progress with therapy due to increasing dyspnea on exertion. He has uncontrolled air hunger. He also has uncontrolled anxiety. Discharge to Inpatient Hospice Facility, [facility]. Patient Problems: Active and Suspected Problems (Last Updated 07/26/19 @ 13:58 by Anneliese Cary) Debility (Acute) Fall (Acute) Shortness of breath (Acute) Acute kidney injury (Acute) Hyperkalemia (Acute) Septic shock (Acute) - Physical Exam Vitals/I&O's: Vital Signs Temp Pulse Resp BP Pulse Ox 98.1 F 81 18 100/41 L 92 08/14/19 14:42 08/14/19 18:40 08/14/19 18:40 08/14/19 17:11 08/14/19 18:40 Oxygen Flow Rate (L/min) 9 Oxygen Delivery Method Nasal Cannula Weight: 84.482 kg Body Mass Index (BMI) 26.5 Intake and Output for Last 24 Hours 08/12/19 08/13/19 08/14/19 23:59 23:59 23:59 Intake Total 600 / 600 960 / 960 480 / 480 Balance 600 / 600 960 / 960 480 / 480 Microbiology Past 72 Hours 08/12/19 00:55 Urine, Clean Catch Urine Culture - Final Culture exhibits no growth. Laboratory Results 08/13/19 21:20: POC Glucose 180 H 08/14/19 06:07: POC Glucose 115 H 08/14/19 11:01: POC Glucose 183 H 08/14/19 16:12: POC Glucose 181 H Current Medications Acetaminophen (Tylenol) 1,000 mg PO Q6H PRN PRN PRN Reason: Pain Score 1-10/10 Last Admin: 08/02/19 10:09 Dose: 1,000 mg Documented by: Albuterol Sulfate (Ventolin Aerosols) 2.5 mg INHALATION Q2H PRN PRN PRN Reason: SOB &/OR WHEEZING Last Admin: 08/06/19 09:36 Dose: 2.5 mg Documented by: Albuterol/Ipratropium (Duoneb) 3 ml INHALATION Q6HWA.RT [facility] Last Admin: 08/14/19 18:40 Dose: 3 ml Documented by: Aspirin (Aspirin, Baby) 81 mg PO DAILY@0800 [facility] Last Admin: 08/14/19 08:06 Dose: 81 mg Documented by: Atorvastatin Calcium (Lipitor) 40 mg PO QHS [facility] Last Admin: 08/13/19 20:57 Dose: 40 mg Documented by: Bisacodyl (Dulcolax) 10 mg RECTAL DAILY PRN PRN Reason: Constipation Last Admin: 08/12/19 02:25 Dose: 10 mg Documented by: Calamine/Phenol (Calmoseptine Ointment) 1 applic TOPICAL BID [facility]; Protocol Last Admin: 08/14/19 17:05 Dose: 1 applicatio Documented by: Gabapentin (Neurontin) 300 mg PO TID [facility] Last Admin: 08/14/19 13:38 Dose: 300 mg Documented by: Glimepiride (Amaryl) 1 mg PO DAILY@0800 [facility] Last Admin: 08/14/19 08:06 Dose: 1 mg Documented by: Guaifenesin (Mucinex) 600 mg PO BID [facility] Last Admin: 08/14/19 17:09 Dose: 600 mg Documented by: Sodium Chloride () 250 mls @ 15 mls/hr IV .[id number] PRN PRN Reason: Saline Flush Last Infusion: 08/12/19 23:30 Dose: Infused Documented by: Sodium Chloride () 250 mls @ 15 mls/hr IV .[id number] PRN PRN Reason: Additional IVPB Infusion Insulin Glargine (Lantus (Bkc)) 10 units SC BID [facility] Last Admin: 08/14/19 17:14 Dose: 10 u Documented by: Levofloxacin (Levaquin Tablet) 750 mg PO DAILY@0600 [facility] Stop: 08/19/19 09:01 Last Admin: 08/14/19 05:27 Dose: 750 mg Documented by: Lorazepam (Ativan) 0.5 mg PO Q8H PRN PRN PRN Reason: ANXIETY Last Admin: 08/14/19 00:43 Dose: 0.5 mg Documented by: Melatonin (Melatonin) 3 mg PO QHS PRN PRN PRN Reason: Insomnia Multi-Ingredient Cream (Eucerin) 1 applic TOPICAL DAILY PRN PRN; Protocol PRN Reason: DRY SKIN Last Admin: 08/04/19 06:17 Dose: 1 applic Documented by: Nystatin (Mycostatin Powder) 1 applic TOPICAL BID [facility]; Protocol Last Admin: 08/14/19 17:05 Dose: 1 applicatio Documented by: Pantoprazole Sodium (Protonix) 40 mg PO BID [facility] Last Admin: 08/14/19 17:09 Dose: 40 mg Documented by: Pioglitazone HCl (Actos) 45 mg PO DAILY [facility] Last Admin: 08/14/19 05:27 Dose: 45 mg Documented by: Polyethylene Glycol (Miralax) 17 gm PO DAILY [facility] Last Admin: 08/14/19 05:30 Dose: 17 gm Documented by: Senna/Docusate Sodium (Senokot-S, [place]-Colace) 1 tablet PO BID [facility] Last Admin: 08/14/19 17:13 Dose: 1 tablet Documented by: Sodium Chloride () 10 - 40 ml IV UD PRN PRN Reason: SALINE FLUSH Last Admin: 08/11/19 20:37 Dose: 10 ml Documented by: Tamsulosin HCl (Flomax) 0.4 mg PO BID [facility] Last Admin: 08/14/19 17:06 Dose: 0.4 mg Documented by: Umeclidinium [place] (Incruse Ellipta Inhaler) 1 puff IH DAILY [facility] Last Admin: 08/14/19 05:28 Dose: 1 puff Documented by: Discharge Diet: No Restrictions Discharge Activity: Return to Normal Activity, May Shower, Use Walker Weight Bearing Status: Weight bearing as tolerated Call your doctor if you observe: Fever of 101 or Higher, Inability to urinate, Inability to have a bowel movement, Shortness of breath, Chest pain, Uncontrolled pain Home Medications: Medications to take at Discharge tiotropium bromide 18 mcg capsule with inhalation device 18 mcg INHALATION DAILY #30 inh 03/13/19 Gabapentin [Neurontin] 300 mg PO TID 07/25/19 Insulin Glargine [Lantus SoloStar Pen] 10 units SUBCUT DAILY 08/01/19 Melatonin 3 mg PO QHS PRN PRN tab 08/01/19 Pantoprazole Sodium [Protonix] 40 mg PO BID 08/01/19 Senna/Docusate Sodium [Senokot-S] 2 tab PO BID PRN PRN tab 08/01/19 Tamsulosin HCl [Flomax] 0.4 mg PO BID 08/01/19 Acetaminophen [Tylenol] 1,000 mg PO Q6H PRN PRN tablet 08/14/19 Albuterol Aerosols [Ventolin Aerosols] 2.5 mg INHALATION Q2H PRN PRN vial.neb. 08/14/19 Guaifenesin [Mucinex] 600 mg PO BID tablet 08/14/19 Ipratropium/Albuterol Sulfate [Duoneb] 3 ml INHALATION Q6HWA.RT ampul.neb 08/14/19 Lorazepam [Ativan] 0.5 mg PO Q8H PRN PRN tablet 08/14/19 Menthol/Lanolin/Calamine/Znox [Calmoseptine Ointment] 1 applic TOPICAL BID tube 08/14/19 Mineral Oil/Petrolatum,White [Eucerin] 1 applic TOPICAL DAILY PRN PRN jar 08/14/19 Nystatin Powder [Mycostatin Powder] 1 applic TOPICAL BID bottle 08/14/19 Polyethylene Glycol 3350 [Miralax] 17 gm PO DAILY packet 08/14/19 Primary Care Physician: Kevin Mcdowell III, MD [Primary Care Provider] - Please follow up with your Primary Care Physician in: As needed. Please Follow Up With: Kevin Mcdowell III When: As needed. Please Follow Up With: Garret Ye DO When: As needed. Please Follow Up With: Idris Ye MD - Cardiology When: As needed. Disposition: Hospice Medical Facility Minutes spent on discharge:: 30 Patient Condition:: Poor Medical Necessity - Tobacco Use Smoking Status: Former smoker Tobacco Use: Non-smoker Meaningful Use Info Meaningful Use Diagnoses (Choose all that apply): None applicable
[2019-08-14 21:51] LABS: Bedside Glucose 203 mg/dL (70-110)
[2019-08-14] MEDS: Atorvastatin Calcium 40 MG Tablet PO (22:03)
--- NOTE | 2019-08-15 00:04 | NURSING ---
Pt c/o SOB with hi flow oxygen at 10L assess Sp02 90% applied bipap on Sp02 94% will notified respiratory that I put bipap on. Pt states he's feeling better. Call light within reach.
--- NOTE | 2019-08-15 00:26 | CPS ---
Patient unable to tolerate BiPAP per RN. Pulse ox was reading 90% on 9L HFNC with patient expressing SOB also. Ventri Mask setup at bedside at 12L 50% and patient putting that on as he feels SOB. Refuses to allow ROO[employer] C[employer] PAINT [employer]KER to place mask on face and will only hold it over himself. Understands that it would be beneficial to sleep with ventri mask on tonight. Will remain on 9L HFNC with ventri mask in reach if needed. RN to give Ativan to help with anxiety. Will call [employer] if needed tonight.
--- NOTE | 2019-08-15 00:27 | NURSING ---
Pt push call light and stated he couldn't tolerate the bipap so this nurse applied nasal cannula and [employer]ICATION[employer] SENIOR ASSOCIATE called respiratory. Venturi mask applied to pt for a few minutes and Sp02 95% states he felt better. Respiratory was up during this time tried to get the pt to wear venturi mask instead of nasal cannula pt refused. Venturi mask sitting next to pt in recliner. Pt asked for something for anxiety given prn ativan at this time. Call light within reach.
[2019-08-15] MEDS: LORazepam 0.5 MG Tablet PO (00:32)
[2019-08-15 03:53] VITALS: BP 118/46; PULSE 90; RESP 18; TEMP 36.8; O2SAT 99
[2019-08-15] MEDS: Tamsulosin HCl 0.4 MG Capsule PO (05:23)
[2019-08-15] MEDS: guaiFENesin 600 MG Tablet PO (05:23)
[2019-08-15] MEDS: 0.9% Saline Lock 10 ML Syringe IV (05:23)
[2019-08-15] MEDS: levoFLOXacin 750 MG Tablet PO (05:23)
[2019-08-15] MEDS: Menthol/Lanolin/Calamine/Znox 113 GM Tube 1 APPLIC TOPICAL (05:23)
[2019-08-15] MEDS: Pantoprazole Sodium 40 MG Tablet PO (05:23)
[2019-08-15] MEDS: Gabapentin 300 MG Capsule PO (05:23)
[2019-08-15] MEDS: Pioglitazone Hydrochloride 45 MG Tablet PO (05:23)
[2019-08-15] MEDS: Umeclidinium Bromide Inhaler 1 PUFF IH (05:24)
[2019-08-15 06:31] LABS: Bedside Glucose 143 mg/dL (70-110)
[2019-08-15] MEDS: Nystatin Powder 15gm Bottle 1 APPLIC TOPICAL (07:09)
[2019-08-15 07:20] VITALS: PULSE 93; RESP 18; O2SAT 94
[2019-08-15] MEDS: Ipratropium/Albuterol Sulfate 3 ML AMPUL.NEB INHALATION (07:20)
[2019-08-15] MEDS: Glimepiride 1 MG Tablet PO (08:36)
[2019-08-15] MEDS: Aspirin 81 MG TAB.CHEW PO (08:36)
[2019-08-15 09:44] VITALS: O2SAT 90
--- NOTE | 2019-08-15 10:06 | NURSING ---
Talked with pt today and asked about his bonds that were dropped off by Son Brandon on previous date. Pt stated he gave his son the bonds back already and they were not here at the hospital, son also confirmed that he had the bonds.
--- NOTE | 2019-08-15 10:33 | NURSING ---
Report called to Jen at [facility]
--- NOTE | 2019-08-15 11:00 | CASEMGMT ---
Social Work BIMS and PHQ-9 completed for MDS assessment. Jojo Goldman, RIDE OPERATOR STRATIGRAPHY TEACHER
[2019-08-15 11:35] VITALS: BP 127/48; PULSE 99; RESP 20; TEMP 36.6; O2SAT 90
[2019-08-15 11:35] LABS: Bedside Glucose 210 mg/dL (70-110)
== END 2019-08-15 11:35 | disposition hospice, inpatient (51) | DRG 281 ==
PROVIDERS: Admitting Provider Family Medicine Geriatric Medicine; PCP Family Medicine; Referring Provider Family Medicine Geriatric Medicine; Visit Provider Family Medicine Geriatric Medicine
DX: I21.4 Non-ST elevation (NSTEMI) myocardial infarction (principal); J96.11 Chronic respiratory failure with hypoxia; E78.5 Hyperlipidemia, unspecified; E11.22 Type 2 diabetes mellitus with diabetic chronic kidney disease; I12.9 Hypertensive chronic kidney disease with stage 1 through stage 4 chronic kidney disease, or unspecified chronic kidney disease; I25.10 Atherosclerotic heart disease of native coronary artery without angina pectoris; N18.9 Chronic kidney disease, unspecified; E11.42 Type 2 diabetes mellitus with diabetic polyneuropathy; E11.51 Type 2 diabetes mellitus with diabetic peripheral angiopathy without gangrene; J44.9 Chronic obstructive pulmonary disease, unspecified; N40.0 Benign prostatic hyperplasia without lower urinary tract symptoms; K21.9 Gastro-esophageal reflux disease without esophagitis; B35.4 Tinea corporis; Z86.19 Personal history of other infectious and parasitic diseases; Z87.891 Personal history of nicotine dependence; F41.9 Anxiety disorder, unspecified; Z87.01 Personal history of pneumonia (recurrent)
CPT/HCPCS: 36415; 71046; 74018; 74019; 80048; 81001; 82962; 85025; 87086; 92610; 94640; 94667; 94668; 97110; 97116; 97162; 97166; 97530; 97535; 97802; J7050; A4216; J1940